=== PATIENT | male | born 1955 | race Caucasian/White ===

== ENCOUNTER → 2017-08-13 10:23 | Outpatient (CLI) | payer MEDICARE, MEDICAID, SELFPAY ==
[2017-08-13 10:49] LABS: Basophils # 0.1 K/mm3 (0-0.2); Basophils % 0.8 % (0.1-2.0); Eosinophils # 0.3 K/mm3 (0.0-0.4); Eosinophils % 2.6 % (0.1-12.0); Hematocrit 54.8 % (42.0-52.0); Hemoglobin 17.3 g/dL (14.1-18.0); Lymphocytes # 2.8 K/mm3 (0.7-4.5); Lymphocytes % 25.8 K/mm3 (10-50); Mean Corpuscular HGB Conc 31.6 g/dL (31.8-35.4); Mean Corpuscular Hemoglobin 29.5 pg (27.0-31.2); Mean Corpuscular Volume 93.4 fl (80-94); Mean Platelet Volume 7.6 fl (7.4-10.4); Monocytes # 0.7 K/mm3 (0.1-1.0); Neutrophils # 7.1 K/mm3 (1.8-7.8); Neutrophils % 64.8 % (37.0-80.0); Platelet Count 232 K/mm3 (142-424); Red Blood Count 5.87 M/mm3 (4.60-6.20); White Blood Count 10.9 K/mm3 (4.8-10.8)
[2017-08-13 12:10] LABS: Erythrocyte Sedimentation Rate 0 mm/hr (0-20)
[2017-08-13 14:14] LABS: Alanine Aminotransferase 38 U/L (12-78); Albumin Level 4.4 gm/dL (3.4-5.0); Albumin/Globulin Ratio 1.5 (1.1-1.8); Alkaline Phosphatase 139 U/L (46-116); Anion Gap 13.9 mEq/L (5-15); Bilirubin,Total 0.2 mg/dL (0.2-1.0); Blood Urea Nitrogen 19 mg/dL (7-18); Carbon Dioxide 31 mmol/L (21.0-32.0); Chloride 102 mmol/L (98-107); Chol/HDL Ratio 2.3 (1-3.5); Cholesterol 152 mg/dL (140-200); Estimated Glomerular Filt Rate 68 ml/min (>60); GFR (African American) 82 ML/MIN (>60); Glucose 124 mg/dL (74-106); HDL Cholesterol 67 mg/dL (27-67); LDL Cholesterol 61 mg/dL (0-130); Potassium 4.9 mmoL/L (3.5-5.1); Sodium 142 mmol/L (136-145); Total Protein,Serum 7.4 gm/dL (6.4-8.2); Triglycerides 120 mg/dL (30-200); Uric Acid 4.4 mg/dL (2.6-7.2); VLDL Cholesterol 24 mg/dL (0-40)
[2017-08-13 14:35] LABS: Aspartate Amino Transferase 14 U/L (15-37)
== END ==
PROVIDERS: Visit Provider Internal Medicine Adolescent Medicine
DX: M10.9 Gout, unspecified (principal); I10 Essential (primary) hypertension
CPT/HCPCS: 36415; 80053; 80061; 84550; 85025; 85651

== ENCOUNTER → 2017-08-25 14:08 | Outpatient (CLI) | payer MEDICARE, MEDICAID, SELFPAY | PROVIDERS: PCP Urology; Visit Provider Urology | DX: Z01.818 Encounter for other preprocedural examination (principal) | CPT/HCPCS: 93005 ==

== ENCOUNTER → 2017-10-07 15:01 | Outpatient (CLI) | payer MEDICARE, MEDICAID, SELFPAY ==
--- NOTE | 2017-10-07 15:05 | XR_ITS ---
EXAM: XR cervical spine 5V HISTORY: Neck pain ITS.REASON: CERVICAL NEURALGIA ORDERING PHYSICIAN: Shankar Raya MD PATIENT AGE: 62 years FINDINGS: There is multilevel cervical spondylosis with degenerative disc disease along with severe facet hypertrophic change on the left C2 to C7. Moderate facet hypertrophic changes are present on the right at C2-C3. Left-sided foraminal narrowing is noted at C2-C5 and C6-C7. There is mild cervical curvature toward the left. No subluxation. No fracture or dislocation. IMPRESSION: There is cervical spondylosis with unusual asymmetric facet arthritic changes on the left with resultant foraminal narrowing on the left and mild cervical curvature convex left
== END ==
PROVIDERS: PCP Internal Medicine Adolescent Medicine; Visit Provider Internal Medicine Adolescent Medicine
DX: M54.12 Radiculopathy, cervical region (principal); R55 Syncope and collapse
CPT/HCPCS: 72050

== ENCOUNTER → 2017-10-16 13:34 | Outpatient (CLI) | payer MEDICARE, MEDICAID, SELFPAY ==
--- NOTE | 2017-10-16 13:37 | MR_ITS ---
MR head/brain wo con Ordering Physician: Shankar Raya MD Patient Age: 62 years: Male HISTORY: ITS.REASON: SYNCOPE AND COLLAPSE, CERVICAL NEURALGIA Syncope 2 weeks ago. Collapse. Lightheadedness when standing up. Neck and Bilateral shoulder pain for years TECHNIQUE: Noncontrast Multiplanar FLAIR, T1, T2 weighted images along with axial diffusion/ADC imaging performed on 1.5 T. Siemens, MRI.. COMPARISON :CT head 02/12/2017 FINDINGS . Cranial cervical junction appears satisfactory. Sella is normal. There is diffuse cerebral atrophy advanced for age 62. Sylvian fissures are generous.. Prominent sulci throughout the cerebral hemispheres. The ventricles are generous but normal, reflecting the cerebral atrophy. Basal cisterns generous but appear clear and satisfactory. Diffusion images reveal recent ischemia or acute infarct. There is no territorial infarct. No mass lesion.. High signal foci throughout white matter of the cerebral hemispheres mainly periventricular but also subcortical. Findings most Compatible with chronic small vessel deep white matter ischemic gliotic changes with overall appearance require correlation. Scattered white matter high signal foci are most evident at frontal lobe, particularly superior to the anterior horns. It is also some mild deep white matter small vessel ischemic changes at periphery of the basal ganglia bilaterally, right greater than left, most notable at right subinsular cortex.. As it would appear to reflect combination of Small vessel ischemic gliotic changes along with some generous perivascular space spaces. Is there history of underlying hypertension?... A tiny 3 mm lacunar vs prominent perivascular space the left thalamus. Mild thinning of corpus callosum reflecting the generalized atrophy The posterior fossa and cerebellar hemisphere appears satisfactory. Norris appears satisfactory along with brain stem. IACs appears normal symmetric with the mastoid air cells are well-developed and clear. Visualized paranasal sinuses are well-developed clear. Orbits unremarkable. Deviation nasal septum convex to the right cranial nerve VII and VIII appears satisfactory IMPRESSION. ............... 1. No acute infarct or ischemia. No mass lesion 2.. Diffuse cerebral atrophy advanced for age 62 3. Chronic small vessel deep white matter ischemic gliotic changes throughout cerebral hemispheres bilateral ;-most evidence toward frontal lobe region,.
== END ==
PROVIDERS: Family Provider Internal Medicine Adolescent Medicine; PCP Internal Medicine Adolescent Medicine; Visit Provider Internal Medicine Adolescent Medicine
DX: R55 Syncope and collapse (principal); M54.12 Radiculopathy, cervical region
CPT/HCPCS: 70551

== ENCOUNTER → 2017-10-19 13:17 | Outpatient (CLI) | payer MEDICARE, MEDICAID, SELFPAY ==
--- NOTE | 2017-10-19 13:20 | MR_ITS ---
MR cervical spine wo con, MR 3-d myelogram/MRCP HISTORY: PT States RT side Neck pain, Bilateral Humeral pain, pain when turning neck from side to side. Some Headaches. Symptoms X2 months. No trauma. ITS.REASON: CERVICAL NEURALGIA ORDERING PHYSICIAN: Shankar Raya MD PATIENT AGE: 62 years Comparison: X-RAY 10/07/17 TECHNIQUE: Standard multiplanar multiecho sequences are performed without contrast. 3-D MIP and myelographic images are also rendered and reviewed FINDINGS: Motion artifact does obscure fine detail with decreased bmpwge-io-rzeeg ratio. There is normal alignment. The craniocervical junction has an unremarkable appearance. C2-C3: Unremarkable. C3-C4: Moderate to severe left-sided facet hypertrophic change with severe left-sided foraminal narrowing C4-C5: Degenerative disc disease with minimal anterolisthesis of C4 of 3 mm. Severe left-sided facet hypertrophic/arthritic changes are present with moderate to severe left-sided foraminal narrowing. C5-C6: Degenerative disc disease. Moderate left-sided facet hypertrophy. C6-C7: Degenerative disc disease with bulging disc and endplate osteophyte. The bulging disc/disc osteophyte complex is slightly eccentric toward the left with left-sided lateral recess and foraminal narrowing. There is decrease T2 signal along the anterior left aspect of the canal at C7. This however is only seen on one sequence and may be artifact in nature. Bony ridging with lateral recess narrowing is also considered. C7-T1: Mild degenerative disc disease with minimal bulging disc. IMPRESSION: Multilevel cervical spondylosis with degenerative disc disease along with bulging disc and disc artifact complex and severe facet hypertrophic change. This is described in detail above. Please see above for detailed description at each level. There is severe left-sided foraminal narrowing at C3-C4 and C4-C5 with left-sided disc osteophyte complex at C6-C7
== END ==
PROVIDERS: Family Provider Internal Medicine Adolescent Medicine; PCP Internal Medicine Adolescent Medicine; Visit Provider Internal Medicine Adolescent Medicine
DX: M54.12 Radiculopathy, cervical region (principal)
CPT/HCPCS: 72141; 76376

== ENCOUNTER → 2018-04-30 12:13 | Outpatient (CLI) | payer MEDICARE, MEDICAID, SELFPAY ==
[2018-04-30 12:41] LABS: Basophils # 0.1 K/mm3 (0-0.2); Basophils % 1.1 % (0.1-2.0); Eosinophils # 0.2 K/mm3 (0.0-0.4); Eosinophils % 3.7 % (0.1-12.0); Hematocrit 48.5 % (42.0-52.0); Hemoglobin 15.7 g/dL (14.1-18.0); Lymphocytes # 2.1 K/mm3 (0.7-4.5); Lymphocytes % 31.5 % (10-50); Mean Corpuscular HGB Conc 32.3 g/dL (31.8-35.4); Mean Corpuscular Hemoglobin 32.4 pg (27.0-31.2); Mean Corpuscular Volume 100.2 fl (80-94); Mean Platelet Volume 7.1 fl (7.4-10.4); Monocytes # 0.4 K/mm3 (0.1-1.0); Monocytes % 6.1 % (1.7-9.3); Neutrophils # 3.8 K/mm3 (1.8-7.8); Neutrophils % 57.5 % (37.0-80.0); Platelet Count 191 K/mm3 (142-424); Red Blood Count 4.84 M/mm3 (4.60-6.20); Red Cell Distribution Width 14.9 % (11.5-17.5); White Blood Count 6.6 K/mm3 (4.8-10.8)
[2018-04-30 14:10] LABS: Alanine Aminotransferase 22 U/L (12-78); Albumin/Globulin Ratio 1.4 (1.1-1.8); Alkaline Phosphatase 91 U/L (46-116); Anion Gap 11.6 mEq/L (5-15); Aspartate Amino Transferase 17 U/L (15-37); Bilirubin,Total 0.4 mg/dL (0.2-1.0); Blood Urea Nitrogen 8 mg/dL (7-18); Calcium 9.5 mg/dL (8.5-10.1); Carbon Dioxide 31 mmol/L (21.0-32.0); Chloride 103 mmol/L (98-107); Creatinine,Serum 1.31 mg/dL (0.70-1.30); Estimated Glomerular Filt Rate 55 ml/min (>60); GFR (African American) 67 ML/MIN (>60); Globulin 2.9 gm/dl (1.3-3.2); Glucose 112 mg/dL (74-106); Potassium 4.6 mmoL/L (3.5-5.1); Sodium 141 mmol/L (136-145); Total Protein,Serum 6.9 gm/dL (6.4-8.2)
== END ==
PROVIDERS: Visit Provider Otolaryngology
DX: Z01.818 Encounter for other preprocedural examination (principal)
CPT/HCPCS: 36415; 80053; 85025; 86900; 86901; 93005

== ENCOUNTER → 2018-05-07 06:34 | Day surgery (SDC) | payer MEDICARE, MEDICAID, SELFPAY ==
--- NOTE | 2018-05-07 08:44 | PC.NURSE ---
0820- princess flynn @ bedside. pt took beta omar. dr hallman notified. pt to reschedule & hold beta omar.
== END ==
PROVIDERS: PCP Internal Medicine Adolescent Medicine; Visit Provider Physician Assistant
DX: R55 Syncope and collapse (principal)

== ENCOUNTER 2018-05-15 10:26 | Inpatient (IN) ==
[2018-05-15 11:04] LABS: Basophils % 0.4 % (0.1-2.0); Eosinophils # 0.1 K/mm3 (0.0-0.4); Eosinophils % 0.5 % (0.1-12.0); Hematocrit 48.7 % (42.0-52.0); Hemoglobin 15.4 g/dL (14.1-18.0); Lymphocytes # 2.1 K/mm3 (0.7-4.5); Lymphocytes % 19.2 % (10-50); Mean Corpuscular HGB Conc 31.6 g/dL (31.8-35.4); Mean Corpuscular Hemoglobin 31.8 pg (27.0-31.2); Mean Corpuscular Volume 100.5 fl (80-94); Mean Platelet Volume 7.5 fl (7.4-10.4); Monocytes # 1.2 K/mm3 (0.1-1.0); Monocytes % 11.2 % (1.7-9.3); Neutrophils # 7.4 K/mm3 (1.8-7.8); Neutrophils % 68.8 % (37.0-80.0); Platelet Count 178 K/mm3 (142-424); Red Blood Count 4.84 M/mm3 (4.60-6.20); Red Cell Distribution Width 13.9 % (11.5-17.5); White Blood Count 10.7 K/mm3 (4.8-10.8)
--- NOTE | 2018-05-15 11:12 | Emergency Department Note ---
ED Disposition Clinical Impression: Cellulitis of hand, left, COPD exacerbation, Tobacco use disorder, Hx of malignant neoplasm of colon, Hx of prostatectomy, Renal insufficiency Disposition: Still a Patient Condition on Discharge: Fair Instructions: Animal Bites Referrals: Shankar Raya MD [Primary Care Provider] - - Critical Care Critical Care Time: No Attestation: On 05/15/18, the high probability of a clinically significant, sudden or life threatening deterioration of the following system(s) required my full and direct attention, intervention and personal management. The time I documented below is in addition to time spent performing reported procedures but includes the following listed in this critical care notation. Medical Decision Making - Medical Records Medical records reviewed: Yes: I reviewed the patient's medical records. - Steven Inquiry Pt receiving controlled substance: No Steven was queried for this patient: No Vital Signs: 05/15/18 10:34 05/15/18 11:00 05/15/18 11:30 Temperature 98.7 F Temperature Source Oral Pulse Rate Pulse Rate [Right Brachial] 72 83 90 Respiratory Rate 22 Blood Pressure [Right Arm] 121/90 125/83 Blood Pressure Mean [Right Arm] 100 97 Blood Pressure Source [Right Arm] Automatic Cuff Automatic Cuff Blood Pressure Position [Right Arm] Sitting 02 Sat by Pulse Oximetry 96 93 L Oxygen Delivery Method Room Air 05/15/18 11:32 Temperature Temperature Source Pulse Rate 93 H Pulse Rate [Right Brachial] Respiratory Rate Blood Pressure [Right Arm] Blood Pressure Mean [Right Arm] Blood Pressure Source [Right Arm] Blood Pressure Position [Right Arm] 02 Sat by Pulse Oximetry Oxygen Delivery Method - Lab Data Lab Results 05/15/18 10:45: WBC 10.7, RBC 4.84, Hgb 15.4, Hct 48.7, MCV 100.5 H, MCH 31.8 H, MCHC 31.6 L, RDW 13.9, Plt Count 178, MPV 7.5, Neut % (Auto) 68.8, Lymph % (Auto) 19.2, [place] % (Auto) 11.2 H, Eos % (Auto) 0.5, Baso % (Auto) 0.4, Neut # (Auto) 7.4, Lymph # (Auto) 2.1, [place] # (Auto) 1.2 H, Eos # (Auto) 0.1, Baso # (Auto) 0.0 05/15/18 10:45: Sodium 136, Potassium 3.6, Chloride 99, Carbon Dioxide 30, Anion Gap 10.6, BUN 5 L, Creatinine 1.38 H, Estimated Creat Clear 62, Estimated GFR 52 L, Est GFR ( Amer) 63, Glucose 115 H, Calcium 8.6, Total Bilirubin 0.5, AST 19, ALT 27, Alkaline Phosphatase 106, Total Protein 7.1, Albumin 3.7, Globulin 3.4 H, Albumin/Globulin Ratio 1.1 05/15/18 10:45: Lactate 0.9 05/15/18 10:45: Plasma/Serum Alcohol 0 Result diagrams: 05/15/18 10:45 05/15/18 10:45 Orders (Tests/Meds): ED MEDICATIONS Generic Name Dose Route Start Last Admin Trade Name Freq PRN Reason Stop Dose Admin Ampicillin Sodium/Sulbactam 100 mls @ 200 mls/hr 05/15/18 11:15 05/15/18 11:22 Sodium 3 gm/ Sodium Chloride IV 05/29/18 11:14 200 mls/hr Q6H MAJOR Administration Protocol Discontinued Medications Generic Name Dose Route Start Last Admin Trade Name Freq PRN Reason Stop Dose Admin Albuterol/Ipratropium 3 ml 05/15/18 11:08 05/15/18 11:31 Duoneb 3ml Neb IH 05/15/18 11:09 3 ml ONCE ONE Administration Sodium Chloride 1,000 mls @ 999 mls/hr 05/15/18 10:45 05/15/18 10:46 Sod Chlor 0.9% 1000ml Bag IV 05/15/18 11:45 999 mls/hr .Q1H1M MAJOR Administration Ketorolac Tromethamine 30 mg 05/15/18 10:41 05/15/18 10:46 Toradol 30mg/Ml Vial IV 05/15/18 10:42 30 mg ONCE ONE Administration Tetanus/Diphtheria Toxoids 0.5 ml 05/15/18 11:23 05/15/18 11:23 Tenivac 0.5ml Syringe IM 05/15/18 11:24 0.5 ml .ONCE ONE Administration ORDERS Category Date Time Status XR chest 2V Stat Exams 05/15/18 10:39 Taken XR hand LT min 3V Stat Exams 05/15/18 10:39 Taken Blood Culture Stat Micro 05/15/18 10:45 Received - Radiology Data #1 Image(s): Chest, Hand Image Reviewed: Yes I reviewed the patient's radiology image Preliminary Findings: Abnormal Chest x-ray: is positive COPD no acute findings. Left hand x-ray: soft tissue swelling no radiopoaque foreign body, no fracture. Medical Decision Narrative: The patient remained hemodynamically stable pain his labs and discussed with him he is agreeable for admission due to rapid progression of his infection. I discussed with Dr. Smalls who agreed to admit him for Dr. Raya due to his lymphangitis. Skin/Abscess/FB HPI - General Chief complaint: Animal Bite Stated complaint: [id number] Dog bite left hand Time Seen by Provider: 05/15/18 10:35 Mode of Arrival: Ambulatory Limitations: No Limitations Description of Symptoms (Recalled from ER Triage Doc. by RN): left hand swollen and red from dog bite last night. noted patient to have difficulty closing hand - History of Present Illness HPI narrative: 62 years old white male smoker with history of COPD, colon cancer and prostate cancer. Yesterday at 5 PM the patient was cleaning his bed from the dog food that is when his dog bit him. The bite involved with the left index and middle finger with pain that is rated 10/10 overnight redness swelling and extension of the pain extended to his left arm. It hurts to keep his hand down and he has to keep it elevated above his chest, he denies having pain or swelling in the left axilla. The pain continues. Patient denies having fever chills chest pain palpitations nausea vomiting or diarrhea. He did not use his inhalers this mo rning. complaint: other (Multiple punctures wound involving the left index and middle finger dorsally.) Onset (ago): hour(s) (18 hours.) Tetanus up to date: no Location: LUE Severity: mild Severity scale (1-10): 10 Quality: aching, dull Consistency: constant Relieving factors: rest, other (And elevation above his chest. ) Exacerbating factors: other (Left hand dependency. ) Context: none Associated symptoms: denies other symptoms Treatments prior to arrival: none - Related Data Home Medications Medication Instructions Recorded Confirmed albuterol sulfate 2.5 mg/3 mL 1.25 mg INHALATION ONCE 03/27/18 12/07/18 (0.083 %) solution for nebulization albuterol sulfate HFA 90 1 puff INHALATION Q6H 08/25/17 05/07/18 mcg/actuation aerosol inhaler allopurinol 100 mg tablet 100 mg PO ONCE 08/25/17 05/07/18 colchicine 0.6 mg capsule 0.6 mg PO ONCE 08/25/17 05/07/18 indomethacin 50 mg capsule 50 mg PO BID 08/25/17 05/07/18 ketotifen 0.025 % (0.035 %) eye 1 drp OPHTHALMIC Q8H 08/25/17 05/07/18 drops metoprolol succinate ER 50 mg 50 mg PO ONCE 08/25/17 05/07/18 tablet,extended release 24 hr potassium chloride ER 20 mEq 20 meq PO BID 08/25/17 05/07/18 tablet,extended release(part/cryst) promethazine 25 mg tablet 25 mg PO NEEDED PRN 08/25/17 05/07/18 quetiapine 100 mg tablet 100 mg PO BID 08/25/17 05/07/18 ranitidine 300 mg capsule 300 mg PO QHS 08/25/17 05/07/18 simvastatin 40 mg tablet 40 mg PO QAM 08/25/17 05/07/18 Allergies Allergy/AdvReac Type Severity Reaction Status Date / Time No Known Allergies Allergy Verified 04/30/18 11:22 [facility] History - Hepatitis A Screen Drug use history?: No High risk sexual behaviors?: No History of sexually transmitted infection?: No Currently employed?: No Childcare worker?: No Do you have indoor plumbing?: Yes Do you have electricity?: Yes Attestation statement:: This patient has been screened for Hepatitis A risk factors. Medical History: Reports:: Asthma, Chronic Obstructive Pulmonary Disease (COPD), Hypertension Other Medical History: Reports: Hypothyroidism. Denies: Blood Transfusion Reac tion Laterality Cases: Bilateral: Other Other Surgeries: Yes: Colonoscopy, EGD Comment: prostate - Social History Smoking Status: Current every day smoker Tobacco Type: cigarettes # Packs/Day (cigarettes): 2 Alcohol Intake: never Alcohol Intake Frequency:: other Substance Use Type: denies use - Psychiatric History Expresses thoughts of harming self/others: None Suicide Plan Description: No Plan Family Hx:: Unable to obtain, No significant family history ROS Obtained: Yes All systems reviewed & no additional complaints Physical Exam - General General appearance: alert, in no apparent distress - Head Head exam: atraumatic, normocephalic, normal inspection - Eye Eye exam: Present: normal appearance, PERRL, EOMI. Absent: scleral icterus, nystagmus - ENT ENT exam: Present: normal exam, normal oropharynx, mucous membranes moist, TM's normal bilaterally, normal external ear exam - Neck Neck exam: Present: normal inspection, full ROM, trachea midline. Absent: tenderness, meningismus, lymphadenopathy - Chest Chest inspection: Present: normal inspection, symmetric chest wall rise. Absent: tenderness - Respiratory Respiratory exam: Present: normal lung sounds bilaterally, wheezes, other (Mild bilateral expiratory wheeze dorsally. ). Absent: respiratory distress - Cardiovascular Cardiovascular exam: Present: regular rate, normal rhythm, normal heart sounds. Absent: JVD - Abdominal Exam Abdominal exam: Present: soft, normal bowel sounds. Absent: distention, tenderness, guarding, rebound, rigidity - Extremities Exam Extremities exam: Present: full ROM, tenderness, normal capillary refill, other. Absent: normal inspection, calf tenderness - Back Exam Back exam: Present: normal inspection. Absent: tenderness, CVA tenderness (R), CVA tenderness (L), vertebral tenderness - Neurological Exam Neurological exam: Present: alert, oriented X3, CN II-XII intact, normal gait, motor sensory deficit, reflexes normal - Psychiatric Psychiatric exam: Present: normal affect, normal mood - Skin Skin exam: Present: warm, dry, other (Left hand tender edematous red dorsally extending to the wrist area with red streaks all the way up to the left arm medially. Negative left axillary lymph node) - Lymphatic Lymphatic Findings: no adenopathy
[2018-05-15 11:22] LABS: Albumin Level 3.7 gm/dL (3.4-5.0); Anion Gap 10.6 mEq/L (5-15); Bilirubin,Total 0.5 mg/dL (0.2-1.0); Calcium 8.6 mg/dL (8.5-10.1); Potassium 3.6 mmoL/L (3.5-5.1); Total Protein,Serum 7.1 gm/dL (6.4-8.2)
[2018-05-15 11:23] LABS: Albumin/Globulin Ratio 1.1 (1.1-1.8); Globulin 3.4 gm/dl (1.3-3.2)
[2018-05-16 06:22] LABS: Basophils % 0.5 % (0.1-2.0); Eosinophils # 0.1 K/mm3 (0.0-0.4); Eosinophils % 2.5 % (0.1-12.0); Hematocrit 40.2 % (42.0-52.0); Lymphocytes # 1.4 K/mm3 (0.7-4.5); Lymphocytes % 26.6 % (10-50); Mean Corpuscular HGB Conc 33.1 g/dL (31.8-35.4); Mean Corpuscular Hemoglobin 32.9 pg (27.0-31.2); Mean Corpuscular Volume 99.3 fl (80-94); Mean Platelet Volume 7.8 fl (7.4-10.4); Monocytes # 0.6 K/mm3 (0.1-1.0); Monocytes % 12.1 % (1.7-9.3); Neutrophils % 58.3 % (37.0-80.0); Platelet Count 143 K/mm3 (142-424); Red Blood Count 4.05 M/mm3 (4.60-6.20); Red Cell Distribution Width 13.7 % (11.5-17.5); White Blood Count 5.1 K/mm3 (4.8-10.8)
[2018-05-16 06:24] LABS: Hemoglobin 13.3 g/dL (14.1-18.0)
[2018-05-16 06:32] LABS: Anion Gap 9.7 mEq/L (5-15); Potassium 3.7 mmoL/L (3.5-5.1)
[2018-05-16 06:38] LABS: Calcium 7.7 mg/dL (8.5-10.1)
--- NOTE | 2018-05-16 08:29 | History & Physical Report ---
*Admission Date: 05/15/18 *Chief complaint: Dog bite *History of present illness: Mr. Rivero is a 62-year-old male with history of COPD, coronary artery disease, who presented to the ER after being bit by his dog on Thursday. He states he was cleaning out the dog's bed and lifted a cover off of him startlingly the dachshund who bit him at the time on his left hand. He did not think much of it initially, however Thursday noted significant redness and swelling with streaking up to his left axilla. Pain was intense, however denies fever, chills, nausea vomiting, numbness in hand. Does have limited movement due to swelling and edema. Trying to keep hand elevated which helps the pain. Admitted to medicine service for IV antibiotics and further management. [facility] History I have reviewed the patient's past medical history: Yes Medical History: Reports:: Asthma, Chronic Obstructive Pulmonary Disease (COPD), Hyperlipidemia, Hypertension Denies:: Cancer, Diabetes Mellitus Type 1, Diabetes Mellitus Type 2, MRSA Other Medical History: Reports: Hypothyroidism. Denies: Blood Transfusion Reaction Laterality Cases: Bilateral: Other Other Surgeries: Yes: Colonoscopy, EGD Amputation: No Fractures: No - *Social History Educational Level: Attended High School Smoking Status: Current every day smoker Tobacco Type: cigarettes # Packs/Day (cigarettes): 2 Alcohol Intake: current Alcohol Intake Frequency:: a few times a month Substance Use Type: denies use Occupational Status: disabled Housing: house Household Members: none - Psychiatric History Expresses thoughts of harming self/others: None Suicide Plan Description: No Plan *Family Hx:: Unable to obtain, No significant family history Review of Systems - Review of Systems Review of systems:: pertinent systems reviewed and negative unless documented below Meds Home Medications Medication Instructions Recorded Confirmed Type albuterol sulfate 2.5 mg/3 mL 1.25 mg INHALATION ONCE 08/25/17 05/07/18 History (0.083 %) solution for nebulization albuterol sulfate HFA 90 1 puff INHALATION Q6H 08/25/17 05/07/18 History mcg/actuation aerosol inhaler allopurinol 100 mg tablet 100 mg PO ONCE 08/25/17 05/07/18 History colchicine 0.6 mg capsule 0.6 mg PO ONCE 08/25/17 05/07/18 History indomethacin 50 mg capsule 50 mg PO BID 08/25/17 05/07/18 History ketotifen 0.025 % (0.035 %) eye 1 drp OPHTHALMIC Q8H 08/25/17 05/07/18 History drops metoprolol succinate ER 50 mg 50 mg PO ONCE 08/25/17 05/07/18 History tablet,extended release 24 hr potassium chloride ER 20 mEq 20 meq PO BID 08/25/17 05/07/18 History tablet,extended release(part/cryst) promethazine 25 mg tablet 25 mg PO NEEDED PRN 08/25/17 05/07/18 History quetiapine 100 mg tablet 100 mg PO BID 08/25/17 05/07/18 History ranitidine 300 mg capsule 300 mg PO QHS 08/25/17 05/07/18 History simvastatin 40 mg tablet 40 mg PO QAM 08/25/17 05/07/18 History Allergies Allergy/AdvReac Type Severity Reaction Status Date / Time No Known Allergies Allergy Verified 04/30/18 11:22 Exam Vital signs and Labs for Last 24 Hours: Temp Pulse Resp BP Pulse Ox 98.2 F 108 H 18 160/95 H 94 L 05/16/18 08:00 05/16/18 08:00 05/16/18 08:00 05/16/18 08:00 05/16/18 08:00 Laboratory Results - last 24 hr 05/15/18 10:45: WBC 10.7, RBC 4.84, Hgb 15.4, Hct 48.7, MCV 100.5 H, MCH 31.8 H, MCHC 31.6 L, RDW 13.9, Plt Count 178, MPV 7.5, Neut % (Auto) 68.8, Lymph % (Auto) 19.2, [place] % (Auto) 11.2 H, Eos % (Auto) 0.5, Baso % (Auto) 0.4, Neut # (Auto) 7.4, Lymph # (Auto) 2.1, [place] # (Auto) 1.2 H, Eos # (Auto) 0.1, Baso # (Auto) 0.0 05/15/18 10:45: Sodium 136, Potassium 3.6, Chloride 99, Carbon Dioxide 30, Anion Gap 10.6, BUN 5 L, Creatinine 1.38 H, Estimated Creat Clear 62, Estimated GFR 52 L, Est GFR ( Amer) 63, Glucose 115 H, Calcium 8.6, Total Bilirubin 0.5, AST 19, ALT 27, Alkaline Phosphatase 106, Total Protein 7.1, Albumin 3.7, Globulin 3.4 H, Albumin/Globulin Ratio 1.1 05/15/18 10:45: Lactate 0.9 05/15/18 10:45: Plasma/Serum Alcohol 0 05/16/18 06:04: WBC 5.1 D, RBC 4.05 L, Hgb 13.3 L D, Hct 40.2 L, MCV 99.3 H, MCH 32.9 H, MCHC 33.1, RDW 13.7, Plt Count 143, MPV 7.8, Neut % (Auto) 58.3, Lymph % (Auto) 26.6, [place] % (Auto) 12.1 H, Eos % (Auto) 2.5, Baso % (Auto) 0.5, Neut # (Auto) 3.0, Lymph # (Auto) 1.4, [place] # (Auto) 0.6, Eos # (Auto) 0.1, Baso # (Auto) 0.0 05/16/18 06:04: Sodium 138, Potassium 3.7, Chloride 105, Carbon Dioxide 27, Anion Gap 9.7, BUN 7 D, Creatinine 1.19, Estimated Creat Clear 71, Estimated GFR 62, Est GFR ( Amer) 75, Glucose 98, Calcium 7.7 L D I & O for Last 24 hours: Intake & Output 05/13/18 05/14/18 05/15/18 05/16/18 23:59 23:59 23:59 23:59 Intake Total 2029 1479 / 1479 Balance 2029 1479 / 1479 Weight 77.564 kg - Constitutional no acute distress - *Routine HEENT Exam Head: Present: normocephalic, atraumatic Eye: Present: EOMI, PERRL ENT: Present: mucous membranes moist. Absent: dentition normal - *Routine Neck Exam Present: supple. Absent: lymphadenopathy - *Routine Respiratory Exam Present: prolonged expiratory phase, wheezes. Absent: rales - *Routine Cardiovascular Exam Present: RRR, Normal S1 - *Routine Abdominal Exam Present: soft - *Routine Rectal Exam Patient deferred: visual exam - *Routine Exam Patient deferred: penile exam - *Routine Extremities Exam Present: edema. Absent: cyanosis, clubbing Comments: Left hand with marked edema and erythema, swelling to the point there are no visual lines on the backs of fingers. Erythema tracks to just proximal of wrist. Smith from previous leading edge of streaking show erythema has receded. Tender to palpation. Cannot make full fist, bite wounds on dorsum of index and middle finger as well as distal metacarpals, no purulent drainage - *Routine Skin Exam Present: intact. Absent: cyanosis - *Routine Neurological Exam Present: alert, oriented X3. Absent: altered mental status Assessment and Plan (1) COPD (chronic obstructive pulmonary disease) Current visit: Yes Status: Chronic Qualifiers: COPD type: unspecified COPD Qualified Code(s): J44.9 - Chronic obstructive pulmonary disease, unspecified Category: Medical Code(s): J44.9 - Chronic obstructive pulmonary disease, unspecified Currently on duo nebs, exams significant for bilateral diffuse wheeze -Initiate maintenance inhaler, given sample from clinic (2) HTN (hypertension) Current visit: Yes Status: Chronic Qualifiers: Hypertension type: essential hypertension Qualified Code(s): I10 - Essential (primary) hypertension Category: Medical Code(s): I10 - Essential (primary) hypertension Continue home medications, holding metoprolol starting today due to patient having tilt table test on Thursday morning and need for 48 hours without beta- blockade (3) Cellulitis of hand, left Current visit: Yes Status: Acute Category: Medical Code(s): L03.114 - Cellulitis of left upper limb Continue Unasyn. Improvement since admission however still having significant pain and edema, will continue IV antibiotics for another 24 hours before transit ioning to oral therapy -Pain control: DC morphine, initiate oxycodone (4) Renal insufficiency Current visit: Yes Status: Chronic Category: Medical Code(s): N28.9 - Disorder of kidney and ureter, unspecified (5) Tobacco use disorder Current visit: Yes Status: Chronic Category: Medical Code(s): F17.200 - Nicotine dependence, unspecified, uncomplicated
--- NOTE | 2018-05-16 15:59 | Pharmacy Consult Notes ---
[facility] Pharmacy VTE Monitoring - Patient Demographics Admission date: 05/15/18 Report Date: 05/16/18 Time: 15:59 Allergies/Adverse Reactions: Patient Allergies No Known Allergies Allergy (Verified 04/30/18 11:22) Height: 1.73 m Weight: 77.564 kg Patient Problems: Current Active Problems Cellulitis of hand, left (Acute) COPD exacerbation (Acute) Tobacco use disorder (Chronic) Hx of malignant neoplasm of colon (Acute) Hx of prostatectomy (Acute) Renal insufficiency (Chronic) COPD (chronic obstructive pulmonary disease) (Chronic) HTN (hypertension) (Chronic) - VTE Risk Labs: VTE Related Lab Results Hgb 13.3 g/dL (14.1-18.0) L D 05/16/18 06:04 Hct 40.2 % (42.0-52.0) L 05/16/18 06:04 Plt Count 143 K/mm3 (142-424) 05/16/18 06:04 BUN 7 mg/dL (7-18) D 05/16/18 06:04 Creatinine 1.19 mg/dL (0.70-1.30) 05/16/18 06:04 Estimated Creat Clear 71 mL/min (50-200) 05/16/18 06:04 VTE Score: 2 VTE Risk Level: Low Risk - Prophylaxis VTE Prophylaxis Ordered?: Yes Types of VTE Prophylaxis: TEDS Knee High Location of Applied Device: Bilateral Lower Extremeties
--- NOTE | 2018-05-17 07:38 | Progress Note ---
Internal Medicine - PN: Subj *Date: 05/17/18 *Time: 07:35 Interval history: Overall patient feels better vis--vis his hand, swelling and infection issues but has some shortness of air through the night and nurses noted that his room air pulse oximetry reading was in the low 80% range. Also found to be wheezing. Placed on oxygen this morning and feels somewhat better. Exam Vital signs and Labs for Last 24 Hours: Temp Pulse Resp BP Pulse Ox 99.0 F 118 H 20 158/98 H 94 L 05/17/18 04:00 05/17/18 05:50 05/17/18 04:00 05/17/18 04:00 05/17/18 06:46 I & O for Last 24 hours: Intake & Output 05/14/18 05/15/18 05/16/18 05/17/18 11:59 11:59 11:59 11:59 Intake Total 3509 / 3509 2362 / 2362 Output Total 240 / 240 Balance 3509 / 3509 2122 / 2122 Weight 175 lb 171 lb 171 lb Narrative: Patient is alert. Somewhat sullen as is his baseline personality. Does admit that his hand is better but that he is coughing. Lungs have expiratory wheezing but fairly symmetric and good air entry in all lung faith. Heart rate regular. Abdomen soft and nontender. Assessment and Plan (1) COPD (chronic obstructive pulmonary disease) Current visit: Yes Status: Chronic Qualifiers: COPD type: COPD with acute exacerbation Qualified Code(s): J44.1 - Chronic obstructive pulmonary disease with (acute) exacerbation Category: Medical Code(s): J44.9 - Chronic obstructive pulmonary disease, unspecified Seems to be in a mild exacerbation of his significant COPD. 1 dose of IV steroids. Continue anabiotic's. Lasix administration to help his wheezing given his recent fluid administration. IV fluids will be discontinued. If he improves through the afternoon he may be discharged home. He is a candidate for home O2 given his severe COPD. (2) HTN (hypertension) Current visit: Yes Status: Chronic Qualifiers: Hypertension type: essential hypertension Qualified Code(s): I10 - Essential (primary) hypertension Category: Medical Code(s): I10 - Essential (primary) hypertension (3) Cellulitis of hand, left Current visit: Yes Status: Acute Category: Medical Code(s): L03.114 - Cellulitis of left upper limb Overall improving. Transition to oral antibiotics if discharged (4) Renal insufficiency Current visit: Yes Status: Chronic Category: Medical Code(s): N28.9 - Disorder of kidney and ureter, unspecified Overall improving/resolved (5) Tobacco use disorder Current visit: Yes Status: Chronic Category: Medical Code(s): F17.200 - Nicotine dependence, unspecified, uncomplicated Complicates all aspects of his care (6) Alcoholism Current visit: Yes Status: Acute Category: Medical Code(s): F10.20 - Alcohol dependence, uncomplicated Long history. Questionably active. Complicates all aspects of his care
--- NOTE | 2018-05-17 08:29 | Discharge Summary ---
General - General Admission date:: 05/16/18 Discharge date: 05/17/18 HPI HPI: Mr. Rivero is a 62-year-old male with history of COPD, coronary artery disease, who presented to the ER after being bit by his dog on Thursday. He states he was cleaning out the dog's bed and lifted a cover off of him startlingly the dachshund who bit him at the time on his left hand. He did not think much of it initially, however Thursday noted significant redness and swelling with streaking up to his left axilla. Pain was intense, however denies fever, chills, nausea vomiting, numbness in hand. Does have limited movement due to swelling and edema. Trying to keep hand elevated which helps the pain. Admitted to medicine service for IV antibiotics and further management. Hospital Course Hospital Course: Patient was admitted, placed on IV Unasyn, tolerated this well and his pain improved. Blood cultures were negative/pending at the time of discharge. Patient did have an episode of COPD exacerbation with wheezing and coughing, required oxygen and in fact had room air saturations less than 89% this morning- the day of discharge and qualifies for home oxygen therapy. This morning hand had improved, please see my exam notes from this morning he will be discharged home on p.o. Augmentin, steroids for his COPD exacerbation and his oxygen therapy. Objective Vital signs: Temp Pulse Resp BP Pulse Ox 99.4 F 93 H 20 154/92 H 94 L 05/17/18 08:00 05/17/18 08:00 05/17/18 08:00 05/17/18 08:00 05/17/18 08:00 Narrative: Patient has reasonably improved air movement after steroids. Still with expiratory wheezing but no crackles or rhonchi. Heart rate regular. No edema. Left hand with redness and [place] consistent with the dog bites but vastly improved with redness only in the MCP area and set of tracing up into the wrist area. Good capillary refill in the distal extremities. DS: Diagnosis - Discharge Diagnosis (1) COPD (chronic obstructive pulmonary disease) Status: Chronic Problem details: Qualifies for home oxygen. This will be set up. (2) HTN (hypertension) Status: Chronic (3) Cellulitis of hand, left Status: Acute (4) Renal insufficiency Status: Resolved Problem details: Creatinine returned to normal (5) Tobacco use disorder Status: Chronic (6) Alcoholism Status: Acute Discharge Plan - Patient Discharge Instructions ACTIVITY: Continue current activity DIET: continue same diet - Follow up Plan Follow up with: Alphonso Auguste MD [Staff Physician] - 05/21/18 Disposition: Home, Self-Skilled Nursing Medications: Home Medications Medication Instructions Recorded Confirmed Type Albuterol Sulfate [Albuterol HFA 1 - 2 puffs IH Q6HP PRN 05/16/18 05/16/18 History Inhaler] Allopurinol [Allopurinol 100mg 100 mg PO BID 05/16/18 05/16/18 History tablet] Aspirin [Aspirin 325mg Tab] 325 mg PO DAILY 05/16/18 05/16/18 History Buspirone HCl [Buspar 10mg tablet] 10 mg PO DAILY 05/16/18 05/16/18 History Colchicine [Colcrys 0.6mg tablet] 0.6 mg PO DAILY 05/16/18 05/16/18 History Duloxetine HCl [Cymbalta] 30 mg PO DAILY 05/16/18 05/16/18 History Metoprolol Succinate 50 mg PO DAILY 05/16/18 05/16/18 History Pantoprazole Sodium [Protonix 40mg 40 mg PO HS 05/16/18 05/16/18 History tablet] Potassium Chloride 20 meq PO DAILY 05/16/18 05/16/18 History Quetiapine Fumarate 100 mg PO DAILY 05/16/18 05/16/18 History Simvastatin 40 mg PO HS 05/16/18 05/16/18 History clonazePAM [Clonazepam] 0.5 mg PO BID 05/16/18 05/16/18 History raNITIdine HCl [Ranitidine HCl] 300 mg PO DAILY 05/16/18 05/16/18 History Prescriptions/Medication Reconciliation: New Amoxicillin/Potassium Clav [Augmentin 875-125 Tablet] 1 tab PO Q12H 10 Days #20 tab predniSONE [Deltasone 20mg tablet] 20 mg PO BID 7 Days #14 tab Mupirocin [Bactroban 2% Ointment 22gm tube] 1 applicatio TP TID #1 tube predniSONE [Deltasone 20mg tablet] 20 mg PO BID 7 Days #14 tab Continue Simvastatin 40 mg PO HS raNITIdine HCl [Ranitidine HCl] 300 mg PO DAILY Potassium Chloride 20 meq PO DAILY Metoprolol Succinate 50 mg PO DAILY Colchicine [Colcrys 0.6mg tablet] 0.6 mg PO DAILY Pantoprazole Sodium [Protonix 40mg tablet] 40 mg PO HS Allopurinol [Allopurinol 100mg tablet] 100 mg PO BID clonazePAM [Clonazepam] 0.5 mg PO BID Albuterol Sulfate [Albuterol HFA Inhaler] 1 - 2 puffs IH Q6HP PRN PRN Reason: SOA/WHEEZING Quetiapine Fumarate 100 mg PO DAILY Duloxetine HCl [Cymbalta] 30 mg PO DAILY Buspirone HCl [Buspar 10mg tablet] 10 mg PO DAILY Aspirin [Aspirin 325mg Tab] 325 mg PO DAILY
== END 2018-05-17 12:20 | disposition home or self-care (01) ==
LOC: 2ND 10:26 → ER 10:26 → 2ND 12:41
PROVIDERS: ADMIT Family Medicine; ATTEND Internal Medicine Adolescent Medicine
CPT/HCPCS: 36415; 71020; 71046; 73130; 80048; 80053; 83605; 85025; 87040; 90714; 94640; 96365; 96366; 96375; 99284; G0378

== ENCOUNTER → 2018-05-18 09:02 | Day surgery (SDC) | payer SELFPAY ==
--- NOTE | 2018-05-19 13:23 | HMH.TILT ---
Findings:: PROCEDURE: UPRIGHT TILT TABLE TEST DATE OF PREOCEDURE: 05/18/2018 REQUESTING PHYSICIAN: Shankar Raya MD INDICATION: Recurrent syncope PRESTEST VITAL SIGNS: BP 159/101, HR 107 and regular, O2 sats 96%. PROCEDURE SUMMARY: Patient was tilted into the upright position at 85 degrees, per protocol, for a total of 51 minutes. He had no syncope or near syncope and only complaint was being tired of standing. His heart rate remained steady with minimal variation. His rhythm was sinus and sinus tachycardia throughout. His blood pressure did drop to a low of 119/90 approximately 9 minutes after being placed upright. However, he had no symptoms associated with this drop in blood pressure. COMPLICATIONS: None. CONCLUSION: Unremarkable upright TTT. However, the patient did have a total drop in systolic blood pressure of 40 mmHg after approximately 9 minutes in the upright position, but remained asymptomatic. It should also be noted that he took Metoprolol Succinate 50 mg, approximately 24 hours prior to the test. Forrest Menendez PA-C
== END ==
PROVIDERS: PCP Internal Medicine Adolescent Medicine; Visit Provider Physician Assistant
DX: R55 Syncope and collapse (principal)

== ENCOUNTER 2018-12-30 17:37 | Inpatient (IN) ==
[2018-12-30 18:24] LABS: Albumin Level 3.7 gm/dL (3.4-5.0); Anion Gap 12.4 mEq/L (5-15); Bilirubin,Total 0.5 mg/dL (0.2-1.0); Calcium 8.9 mg/dL (8.5-10.1); Globulin 3.6 gm/dl (1.3-3.2); Total Protein,Serum 7.3 gm/dL (6.4-8.2)
[2018-12-30 18:31] LABS: Basophils # 0.1 K/mm3 (0-0.2); Eosinophils # 0.3 K/mm3 (0.0-0.4); Eosinophils % 3.2 % (0.1-12.0); Lymphocytes # 3.1 K/mm3 (0.7-4.5); Lymphocytes % 35.6 % (10-50); Mean Corpuscular HGB Conc 31.5 g/dL (31.8-35.4); Mean Corpuscular Volume 100.9 fl (80-94); Mean Platelet Volume 7.7 fl (7.4-10.4); Monocytes # 0.5 K/mm3 (0.1-1.0); Monocytes % 5.8 % (1.7-9.3); Neutrophils # 4.7 K/mm3 (1.8-7.8); Neutrophils % 54.3 % (37.0-80.0); Platelet Count 207 K/mm3 (142-424); Red Blood Count 5.85 M/mm3 (4.60-6.20); Red Cell Distribution Width 14.1 % (11.5-17.5); White Blood Count 8.6 K/mm3 (4.8-10.8)
[2018-12-30 18:46] LABS: Hemoglobin 18.6 g/dL (14.1-18.0)
[2018-12-30 18:49] LABS: Microscopic, Urine URINE MICROSCOPIC (MICROSCOPIC)
[2018-12-30 18:53] LABS: Appearance,Urine CLEAR (Clear); Bilirubin,Urine Negative (Negative); Blood, Urine Negative (Negative); Color,Urine YELLOW (Yellow); Glucose,Urine (UA) Negative (Negative); Ketones,Urine Negative (Negative); Leukocyte Esterase,Urine Negative (Negative); PH,Urine 6.5 (5.0-8.5); Protein,Urine TRACE (Negative); Urobilinogen,Urine 0.2 EU/dl (0.2)
[2018-12-30 19:47] LABS: Bacteria,Urine Trace /lpf; Squamous Epithelial Cell,Urine Occasional #/hpf (0-5); WBC,Urine Occasional #/hpf (0-3)
--- NOTE | 2018-12-30 20:30 | Emergency Department Note ---
ED Disposition Clinical Impression: Alcoholic pancreatitis Qualifiers: Chronicity: acute Acute pancreatitis complication: unspecified Qualified Code(s): K85.20 - Alcohol induced acute pancreatitis without necrosis or infection Disposition: Admitted as Observation Condition on Discharge: Fair - Critical Care Critical Care Time: No Attestation: On 12/30/18, the high probability of a clinically significant, sudden or life threatening deterioration of the following system(s) required my full and direct attention, intervention and personal management. The time I documented below is in addition to time spent performing reported procedures but includes the following listed in this critical care notation. Medical Decision Making - Steven Inquiry Pt receiving controlled substance: Yes Steven was queried for this patient: No Reason not queried -: Emergent pt cond-no time Risks and benefits of using a controlled substance: were not discussed with pt by me Vital Signs: 12/30/18 17:43 12/30/18 18:57 12/30/18 20:30 Temperature 98.9 F 98 F Temperature Source Oral Oral Pulse Rate [Right Radial] 99 H 89 86 Respiratory Rate 18 22 18 Blood Pressure [Right Arm] 149/111 H 150/99 H 116/74 Blood Pressure Mean [Right Arm] 123 116 88 Blood Pressure Source [Right Arm] Automatic Cuff Automatic Cuff Automatic Cuff Blood Pressure Position [Right Arm] Sitting Supine Supine 02 Sat by Pulse Oximetry 98 93 L 92 L Oxygen Delivery Method Room Air Room Air Room Air - Lab Data Lab Results 12/30/18 18:00: WBC 8.6, RBC 5.85, Hgb 18.6 H*, Hct 59.0 H, MCV 100.9 H, MCH 31.8 H, MCHC 31.5 L, RDW 14.1, Plt Count 207, MPV 7.7, Neut % (Auto) 54.3, Lymph % (Auto) 35.6, [place] % (Auto) 5.8, Eos % (Auto) 3.2, Baso % (Auto) 1.0, Neut # (Auto) 4.7, Lymph # (Auto) 3.1, [place] # (Auto) 0.5, Eos # (Auto) 0.3, Baso # (Auto) 0.1 12/30/18 18:00: Sodium 140, Potassium 4.4, Chloride 100, Carbon Dioxide 32, Anion Gap 12.4, BUN 4 L, Creatinine 1.14, Estimated Creat Clear 70, Estimated GFR 65, Est GFR ( Amer) 79, Glucose 127 H, Calcium 8.9, Total Bilirubin 0.5, AST 52 H, ALT 58, Alkaline Phosphatase 173 H, Total Protein 7.3, Albumin 3.7, Globulin 3.6 H, Albumin/Globulin Ratio 1.0 L, Amylase 101, Lipase 817 H 12/30/18 18:00: Troponin I < 0.02 12/30/18 18:45: Urine Color Yellow, Urine Appearance Clear, Urine pH 6.5, Ur Specific [place] 1.020, Urine Protein Trace, Urine Glucose (UA) Negative, Urine Ketones Negative, Urine Blood Negative, Urine Nitrate Negative, Urine Bilirubin Negative, Urine Urobilinogen 0.2, Ur Leukocyte Esterase Negative, Urine WBC Occasional, Ur Squamous Epith Cells Occasional, Urine Bacteria Trace Result diagrams: 12/30/18 18:00 12/30/18 18:00 Orders (Tests/Meds): ED MEDICATIONS Generic Name Dose Route Start Last Admin Trade Name Freq PRN Reason Stop Dose Admin Sodium Chloride 1,000 mls @ 150 mls/hr 12/30/18 20:45 Sod Chlor 0.9% 1000ml Bag IV 01/29/19 20:44 .[id number] MAJOR Discontinued Medications Generic Name Dose Route Start Last Admin Trade Name Freq PRN Reason Stop Dose Admin Hydromorphone HCl 1 mg 12/30/18 18:32 12/30/18 18:40 Dilaudid 2mg/Ml Syringe IV 12/30/18 18:33 1 mg ONCE ONE Administration Sodium Chloride 1,000 mls @ 999 mls/hr 12/30/18 18:32 12/30/18 18:39 Sod Chlor 0.9% 1000ml Bag IV 12/30/18 19:32 999 mls/hr .Q1H1M ONE Administration Ondansetron HCl 4 mg 12/30/18 18:32 12/30/18 18:40 Zofran 4mg/2ml Vial IV 12/30/18 18:33 4 mg ONCE ONE Administration ORDERS Category Date Time Status CT abdomen pelvis wo con Stat Cat Scan 12/30/18 17:57 Taken - CT Data CT Scan: Abdomen, Pelvis Time Received: 20:[address] Reviewed: Yes: I have viewed the radiologist's interpretation Findings Narrative: CT scan interpreted by [facility] radiologist. Faxed report received and reviewed: Diffuse abnormality of the pancreatic body, head, and uncinate process. Multiple calcifications. 2.7 and 3.9 cm rounded ill-defined hypodensities. Adjacent stranding. Pancreatic findings may be secondary to acute on chronic pancreatitis. Ovoid hypodensities may be postinflammatory or infectious fluid collections. Underlying malignancy cannot be excluded. MRI may be warranted for further evaluation. - ECG Data Tracing #1 EKG interpreted by Sarmad Escalante MD: Rhythm: sinus Rate: 85 Hankins: normal Ectopy: none Conduction: normal ST Segment Changes: none T Wave Changes: none Q Waves: none Poor R wave progression No evidence of acute injury or infarction - Physician Consults Physician Consulted: Slim Raya Time: 21:24 Reason -: Admission Comment/Response: Agrees to admit the patient to the hospital. We discussed the patient's clinical information, including history, exam, laboratory and radiology results and ED course. Per hospital procedure, I will write temporary bridge inpatient orders on the patient. Specific orders requested by the admitting physician: Clear liquids, IV fluids, pain control Medical Decision Narrative: Records reviewed. Admitted in January 2017 for pancreatitis and alcoholism. Had a seizure while in the hospital. Patient uncertain of his home meds. Has prednisone listed, but is unable to tell me whether he is still on that medication. General Adult HPI - General Chief complaint: Abdominal Pain Stated complaint: abd pain Time Seen by Provider: 12/30/18 20:30 Mode of Arrival: Ambulatory Limitations: No Limitations Description of Symptoms (Recalled from ER Triage Doc. by RN): C/O EPIGASTRIC PAIN SINCE THIS AM - History of Present Illness HPI narrative: Poor historian. Complains of generalized abdominal pain that started this morning. Says it feels like his pancreas, says he has had a problem with it before about a year ago. He thinks he was admitted here or at [facility]. He says they told him it was probably due to drinking. Patient is still a drinker. Says that he drank a pint of vodka yesterday. Denies being a daily drinker, says he is not going to withdrawal when he stops drinking. Denies vomiting, diarrhea. Has felt feverish, but has not taken his temperature. Has had intermittent chest pains today lasting a couple of minutes, he thinks 2 episodes. He is always short of breath, he is a smoker. He says he always wheezes. He always has a cough. Denies urinary symptoms. Denies any radiation of pain. States he has had 3 surgeries, one on his colon. Cannot remember the others. He says that his surgery on his colon was because it was torn. - Related Data Home Medications Medication Instructions Recorded Confirmed Albuterol Sulfate [Albuterol HFA 1 - 2 puffs IH Q6HP PRN 05/16/18 12/30/18 Inhaler] Allopurinol [Allopurinol 100mg 100 mg PO BID 05/16/18 12/30/18 tablet] Aspirin [Aspirin 325mg Tab] 325 mg PO DAILY 05/16/18 12/30/18 Buspirone HCl [Buspar 10mg 10 mg PO DAILY 05/16/18 12/30/18 tablet] Colchicine [Colcrys 0.6mg tablet] 0.6 mg PO DAILY 05/16/18 12/30/18 Duloxetine HCl [Cymbalta] 30 mg PO DAILY 05/16/18 12/30/18 Metoprolol Succinate 50 mg PO DAILY 05/16/18 12/30/18 Potassium Chloride 20 meq PO DAILY 05/16/18 12/30/18 Quetiapine Fumarate 100 mg PO DAILY 05/16/18 12/30/18 Simvastatin 40 mg PO HS 05/16/18 12/30/18 clonazePAM [Clonazepam] 0.5 mg PO BID 05/16/18 12/30/18 raNITIdine HCl [Ranitidine HCl] 300 mg PO DAILY 05/16/18 12/30/18 predniSONE [Deltasone 20mg 20 mg PO BID 05/18/18 12/30/18 tablet] Allergies Allergy/AdvReac Type Severity Reaction Status Date / Time No Known Allergies Allergy Verified 04/30/18 11:22 [facility] History - Hepatitis A Screen Drug use history?: No High risk sexual behaviors?: No History of sexually transmitted infection?: No Currently employed?: No Childcare worker?: No Do you have indoor plumbing?: Yes Do you have electricity?: Yes Attestation statement:: This patient has been screened for Hepatitis A risk factors. I have reviewed the patient's past medical history: Yes Medical History: Reports:: Anxiety, Asthma, Cancer, Chronic Obstructive Pulmonary Disease (COPD), Hyperlipidemia, Hypertension, Lung Disease (copd, asthma) Denies:: Diabetes Mellitus Type 1, Diabetes Mellitus Type 2, Internal Pacemaker, MRSA, Seizures Other Medical History: Reports: Hypothyroidism, Other (gout). Denies: Blood Transfusion Reaction Laterality Cases: Bilateral: Other Other Surgeries: Yes: Cancer Surgery, Colonoscopy, Colon Resection, EGD. No: Pacemaker Amputation: No Fractures: No Comment: prostate - Social History Smoking Status: Current every day smoker Tobacco Type: cigarettes # Packs/Day (cigarettes): 1 Alcohol Intake: current Alcohol Intake Frequency:: a few times a week Substance Use Type: denies use Occupational Status: retired Housing: house Household Members: none - Psychiatric History Pschychiatric History:: Reports:: Anxiety Family Hx:: No significant family history ROS Obtained: Yes All systems reviewed & no additional complaints - Constitutional Constitutional: Reports fever(s) (Subjective) - Cardiovascular Cardiovascular: Reports chest pain - Respiratory Respiratory: Yes cough, Yes dyspnea (Chronic) - Gastrointestinal Gastrointestingal: Reports: abdominal pain. Denies: diarrhea, vomiting (Chronic) - Genitourinary Male Genitourinary: Denies difficulty urinating - Allergic/Immunologic Comments: Has a skin lesion right upper quadrant of his abdomen that has been present for 1 year, has not had it checked. Physical Exam - General General appearance: alert, in no apparent distress - Head Head exam: atraumatic, normocephalic - Eye Eye exam: Present: normal appearance, PERRL, EOMI - ENT ENT exam: Present: mucous membranes moist - Neck Neck exam: Present: normal inspection, trachea midline - Chest Chest inspection: Present: normal inspection, symmetric chest wall rise - Respiratory Respiratory exam: Present: wheezes (Bilateral) - Cardiovascular Cardiovascular exam: Present: regular rate, normal rhythm, normal heart sounds - Abdominal Exam Abdominal exam: Present: tenderness, guarding, normal bowel sounds - Extremities Exam Extremities exam: Present: normal inspection, full ROM - Neurological Exam Neurological exam: Present: alert, oriented X3 - Psychiatric Psychiatric exam: Present: normal affect, normal mood - Expanded Skin Exam Comment: 2 cm hyperpigmented circular lesion right upper quadrant of abdomen. Central raised area approximately 1 cm diameter. Patchy crusty areas over the lesion.
[2018-12-30 22:21] LABS: Activated Partial Thrombo Time 26.8 seconds (23.6-34.0); INR 1.03 (0.9-1.1); Prothrombin Time 10.7 seconds (9.4-11.8)
[2018-12-30 22:23] LABS: Phosphorous 2.9 mg/dL (2.4-4.9)
[2018-12-30 22:25] LABS: Amphetamine/Metha Screen,Urine Negative ng/mL (<1000); Barbiturates Screen,Urine Negative ng/mL (<200); Benzodiazepines Screen,Urine Negative ng/mL (<200); Cannabinoid Screen,Urine Positive ng/mL (<50); Cocaine Screen,Urine Negative ng/mL (<300); Methadone Screen,Urine Negative ng/mL (<300); Opiate Screen,Urine Negative ng/mL (<300); Phencyclidine Screen,Urine Negative ng/mL (<25)
--- NOTE | 2018-12-31 07:55 | History & Physical Report ---
*Admission Date: 12/30/18 *Chief complaint: abdominal pain *History of present illness: Mr. Phillips 63-year-old gentleman with history of chronic pancreatitis and alcoholism. He presented to the ER with development of abdominal pain over the course of the day. States the pain was diffuse across the top of his abdomen. Denies nausea vomiting or diarrhea. States that he had been sober for over a year up until recently when he started drinking again. Has been drinking roughly a pint of vodka a day for the past few weeks. Last drink was 2 to 3 days ago. Patient denies any fevers but does complain of some sweats. Assessment in the ER showed elevation of lipase, tenderness of abdomen, and CT scan with findings of acute on chronic pancreatitis. Initiated on IV fluids and bowel rest. Patient also initiated on CIWA scoring and oxazepam scheduled to minimize risk for withdrawal symptoms. Admitted to medicine for further management [facility] History I have reviewed the patient's past medical history: Yes Medical History: Reports:: Anxiety, Asthma, Cancer (Colon "They said they got it all."), Chronic Obstructive Pulmonary Disease (COPD), Hyperlipidemia, Hypertension, Lung Disease (copd, asthma) Denies:: Diabetes Mellitus Type 1, Diabetes Mellitus Type 2, Internal Pacemaker, MRSA, Seizures *Have you ever received a pneumonia vaccine?: Yes *Have you received a flu vaccine this season?: Yes Other Medical History: Reports: Hypothyroidism, Other (gout). Denies: Blood Transfusion Reaction Laterality Cases: Bilateral: Other Other Surgeries: Yes: Cancer Surgery, Colonoscopy, Colon Resection, EGD, Other (prostatectomy). No: Pacemaker Amputation: No Fractures: No - *Social History Educational Level: Attended High School Smoking Status: Current every day smoker Tobacco Type: cigarettes # Packs/Day (cigarettes): 1 Alcohol Intake: current Alcohol Intake Frequency:: a few times a week Substance Use Type: marijuana Last Used Substance: days (ago) *Occupational Status:: retired, disabled Housing: house Household Members: none *Travel in the last 8 weeks: None - Psychiatric History Expresses thoughts of harming self/others: None Suicide Plan Description: No Plan Pschychiatric History:: Reports:: Anxiety Family Hx:: No significant family history Review of Systems - Review of Systems Review of systems:: pertinent systems reviewed and negative unless documented below Meds Home Medications Medication Instructions Recorded Confirmed Type Albuterol Sulfate [Albuterol HFA 1 - 2 puffs IH Q6HP PRN 05/16/18 12/30/18 History Inhaler] Allopurinol [Allopurinol 100mg 100 mg PO BID 05/16/18 12/30/18 History tablet] Aspirin [Aspirin 325mg Tab] 325 mg PO DAILY 05/16/18 12/30/18 History Buspirone HCl [Buspar 10mg 10 mg PO DAILY 05/16/18 12/30/18 History tablet] Colchicine [Colcrys 0.6mg tablet] 0.6 mg PO DAILY 05/16/18 12/30/18 History Duloxetine HCl [Cymbalta] 30 mg PO DAILY 05/16/18 12/30/18 History Metoprolol Succinate 50 mg PO DAILY 05/16/18 12/30/18 History Potassium Chloride 20 meq PO DAILY 05/16/18 12/30/18 History Quetiapine Fumarate 100 mg PO DAILY 05/16/18 12/30/18 History Simvastatin 40 mg PO HS 05/16/18 12/30/18 History clonazePAM [Clonazepam] 0.5 mg PO BID 05/16/18 12/30/18 History raNITIdine HCl [Ranitidine HCl] 300 mg PO DAILY 05/16/18 12/30/18 History predniSONE [Deltasone 20mg 20 mg PO BID 05/18/18 12/30/18 History tablet] Allergies Allergy/AdvReac Type Severity Reaction Status Date / Time No Known Allergies Allergy Verified 04/30/18 11:22 Exam Vital signs and Labs for Last 24 Hours: Temp Pulse Resp BP Pulse Ox 97.6 F 90 20 163/109 H 91 L 12/31/18 04:00 12/31/18 05:26 12/31/18 04:00 12/31/18 04:00 12/31/18 05:26 Laboratory Results - last 24 hr 12/30/18 18:00: WBC 8.6, RBC 5.85, Hgb 18.6 H*, Hct 59.0 H, MCV 100.9 H, MCH 31.8 H, MCHC 31.5 L, RDW 14.1, Plt Count 207, MPV 7.7, Neut % (Auto) 54.3, Lymph % (Auto) 35.6, [place] % (Auto) 5.8, Eos % (Auto) 3.2, Baso % (Auto) 1.0, Neut # (Auto) 4.7, Lymph # (Auto) 3.1, [place] # (Auto) 0.5, Eos # (Auto) 0.3, Baso # (Au to) 0.1 12/30/18 18:00: Sodium 140, Potassium 4.4, Chloride 100, Carbon Dioxide 32, Anion Gap 12.4, BUN 4 L, Creatinine 1.14, Estimated Creat Clear 70, Estimated GFR 65, Est GFR ( Amer) 79, Glucose 127 H, Calcium 8.9, Total Bilirubin 0.5, AST 52 H, ALT 58, Alkaline Phosphatase 173 H, Total Protein 7.3, Albumin 3.7, Globulin 3.6 H, Albumin/Globulin Ratio 1.0 L, Amylase 101, Lipase 817 H 12/30/18 18:00: Troponin I < 0.02 12/30/18 18:00: PT 10.7, INR 1.03, APTT 26.8 12/30/18 18:00: Phosphorus 2.9, Magnesium 1.4 12/30/18 18:45: Urine Color Yellow, Urine Appearance Clear, Urine pH 6.5, Ur Specific [place] 1.020, Urine Protein Trace, Urine Glucose (UA) Negative, Urine Ketones Negative, Urine Blood Negative, Urine Nitrate Negative, Urine Bilirubin Negative, Urine Urobilinogen 0.2, Ur Leukocyte Esterase Negative, Urine WBC Occasional, Ur Squamous Epith Cells Occasional, Urine Bacteria Trace 12/30/18 18:45: Urine Opiates Screen Negative, Urine Methadone Screen Negative, Ur Barbituates Screen Negative, Ur Phencyclidine Scrn Negative, Ur Amphetamines Screen Negative, U Benzodiazepines Scrn Negative, Urine Cocaine Screen Negative, U Marijuana (THC) Screen Positive H I & O for Last 24 hours: Intake & Output 12/28/18 12/29/18 12/30/18 12/31/18 23:59 23:59 23:59 23:59 Intake Total 240 / 290 1288 / 1288 Output Total 400 / 400 Balance 240 / 290 888 / 888 Weight 67.358 kg 68.152 kg - Constitutional mild distress - *Routine HEENT Exam Head: Present: normocephalic, atraumatic Eye: Present: EOMI, PERRL ENT: Present: mucous membranes moist - *Routine Neck Exam Present: supple, full ROM - *Routine Respiratory Exam Present: prolonged expiratory phase, rhonchi, wheezes (Intermittent) - *Routine Cardiovascular Exam Present: RRR, Normal S1. Absent: murmur - *Routine Abdominal Exam Present: normoactive bowel sounds, tenderness, distended, guarding. Absent: rebound - *Routine Rectal Exam Patient deferred: visual exam - *Routine Exam Patient deferred: penile exam - *Routine Extremities Exam Present: pulses intact (Though diminished, 1+). Absent: cyanosis, clubbing, edema - *Routine Skin Exam Present: intact. Absent: cyanosis, erythema - *Routine Neurological Exam Present: alert, oriented X3. Absent: altered mental status Assessment and Plan (1) Alcoholic pancreatitis Current visit: Yes Status: Acute Qualifiers: Chronicity: acute Acute pancreatitis complication: unspecified Qualified Code(s): K85.20 - Alcohol induced acute pancreatitis without necrosis or infection Category: Medical Code(s): K85.20 - Alcohol induced acute pancreatitis without necrosis or infection (2) Alcoholism Current visit: No Status: Chronic Category: Medical Code(s): F10.20 - Alcohol dependence, uncomplicated (3) COPD (chronic obstructive pulmonary disease) Problem details: Qualifies for home oxygen. This will be set up. Current visit: No Status: Chronic Qualifiers: COPD type: COPD with acute exacerbation Qualified Code(s): J44.1 - Chronic obstructive pulmonary disease with (acute) exacerbation Category: Medical Code(s): J44.9 - Chronic obstructive pulmonary disease, unspecified (4) HTN (hypertension) Current visit: No Status: Chronic Qualifiers: Hypertension type: essential hypertension Qualified Code(s): I10 - Essential (primary) hypertension Category: Medical Code(s): I10 - Essential (primary) hypertension (5) Tobacco use disorder Current visit: No Status: Chronic Category: Medical Code(s): F17.200 - Nicotine dependence, unspecified, uncomplicated - Assessment and plan all Dx Assessment and Plan for all problems:: Mr. Rosen is a 63-year-old male with history of alcohol abuse,, tobacco dependence, COPD, who presents with acute alcoholic pancreatitis. Will transition IV fluids to LR at 150 an hour. Continue CIWA scoring and withdrawal protocol with scheduled oxazepam. At this time will allow clear liquid diet. Patient's condition continues to remain tenuous, anticipate continued need for inpatient admission.
--- NOTE | 2018-12-31 10:12 | Pharmacy Consult Notes ---
[facility] Pharmacy VTE Monitoring - Patient Demographics Admission date: 12/30/18 Report Date: 12/31/18 Time: 10:12 Allergies/Adverse Reactions: Patient Allergies No Known Allergies Allergy (Verified 04/30/18 11:22) Height: 1.73 m Weight: 68.152 kg Patient Problems: Current Active Problems Alcoholic pancreatitis (Acute) - VTE Risk Labs: VTE Related Lab Results Hgb 18.6 g/dL (14.1-18.0) H* 12/30/18 18:00 Hct 59.0 % (42.0-52.0) H 12/30/18 18:00 Plt Count 207 K/mm3 (142-424) 12/30/18 18:00 PT 10.7 seconds (9.4-11.8) 12/30/18 18:00 INR 1.03 (0.9-1.1) 12/30/18 18:00 APTT 26.8 seconds (23.6-34.0) 12/30/18 18:00 BUN 4 mg/dL (7-18) L 12/30/18 18:00 Creatinine 1.14 mg/dL (0.70-1.30) 12/30/18 18:00 Estimated Creat Clear 70 mL/min (50-200) 12/30/18 18:00 Was VTE Risk Assessment Performed: Yes VTE Score: 3 VTE Risk Level: Low Risk - Prophylaxis VTE Prophylaxis Ordered?: Yes Types of VTE Prophylaxis: TEDS Knee High Location of Applied Device: Bilateral Lower Extremeties - VTE Diagnosis Confirmed Treatment or plan recommended: Continue Current Treatment
[2019-01-01 06:30] LABS: Basophils % 0.5 % (0.1-2.0); Eosinophils # 0.2 K/mm3 (0.0-0.4); Eosinophils % 3.9 % (0.1-12.0); Hematocrit 46.9 % (42.0-52.0); Hemoglobin 15.4 g/dL (14.1-18.0); Lymphocytes # 1.9 K/mm3 (0.7-4.5); Lymphocytes % 37.8 % (10-50); Mean Corpuscular HGB Conc 32.9 g/dL (31.8-35.4); Mean Corpuscular Volume 98.7 fl (80-94); Mean Platelet Volume 7.5 fl (7.4-10.4); Monocytes # 0.4 K/mm3 (0.1-1.0); Monocytes % 8.8 % (1.7-9.3); Neutrophils # 2.4 K/mm3 (1.8-7.8); Neutrophils % 48.9 % (37.0-80.0); Platelet Count 145 K/mm3 (142-424); Red Blood Count 4.75 M/mm3 (4.60-6.20); Red Cell Distribution Width 14.3 % (11.5-17.5); White Blood Count 4.9 K/mm3 (4.8-10.8)
[2019-01-01 06:50] LABS: Albumin Level 2.8 gm/dL (3.4-5.0); Albumin/Globulin Ratio 1.1 (1.1-1.8); Anion Gap 8.6 mEq/L (5-15); Bilirubin,Total 0.9 mg/dL (0.2-1.0); Globulin 2.5 gm/dl (1.3-3.2); Total Protein,Serum 5.3 gm/dL (6.4-8.2)
[2019-01-02 06:19] LABS: Basophils % 0.4 % (0.1-2.0); Eosinophils # 0.2 K/mm3 (0.0-0.4); Eosinophils % 3.5 % (0.1-12.0); Hematocrit 43.4 % (42.0-52.0); Hemoglobin 14.3 g/dL (14.1-18.0); Lymphocytes # 1.7 K/mm3 (0.7-4.5); Lymphocytes % 40.5 % (10-50); Mean Platelet Volume 7.5 fl (7.4-10.4); Monocytes # 0.4 K/mm3 (0.1-1.0); Monocytes % 9.3 % (1.7-9.3); Neutrophils # 1.9 K/mm3 (1.8-7.8); Neutrophils % 46.3 % (37.0-80.0); Platelet Count 148 K/mm3 (142-424); Red Blood Count 4.47 M/mm3 (4.60-6.20); Red Cell Distribution Width 14.2 % (11.5-17.5); White Blood Count 4.2 K/mm3 (4.8-10.8)
[2019-01-02 06:39] LABS: Albumin Level 2.4 gm/dL (3.4-5.0); Albumin/Globulin Ratio 1.1 (1.1-1.8); Anion Gap 7.4 mEq/L (5-15); Bilirubin,Total 1.2 mg/dL (0.2-1.0); Calcium 7.9 mg/dL (8.5-10.1); Globulin 2.2 gm/dl (1.3-3.2); Total Protein,Serum 4.6 gm/dL (6.4-8.2)
--- NOTE | 2019-01-02 08:35 | Progress Note ---
Internal Medicine - PN: Subj *Date: 01/02/19 *Time: 08:33 Interval history: Patient has tried to leave the floor a couple of times through the night to "smoke" and as a result the nurses had to disconnect his intravenous line because he has threatened to rip it out. He states that his pain has been bad through the night and has requested IV morphine but then immediately wishes to eat. I told him this morning that he was not going to be able to eat if he still complained of pain and he tells me this morning that his pain is "a lot better." Exam Vital signs and Labs for Last 24 Hours: Temp Pulse Resp BP Pulse Ox 97.9 F 85 20 135/89 91 L 01/02/19 08:00 01/02/19 08:00 01/02/19 08:00 01/02/19 08:00 01/02/19 08:00 Laboratory Results - last 24 hr 01/02/19 05:40: WBC 4.2 L, RBC 4.47 L, Hgb 14.3, Hct 43.4, MCV 97.0 H, MCH 32.0 H, MCHC 33.0, RDW 14.2, Plt Count 148, MPV 7.5, Neut % (Auto) 46.3, Lymph % (Auto) 40.5, [place] % (Auto) 9.3, Eos % (Auto) 3.5, Baso % (Auto) 0.4, Neut # (Auto) 1.9, Lymph # (Auto) 1.7, [place] # (Auto) 0.4, Eos # (Auto) 0.2, Baso # (Auto) 0.0 01/02/19 05:40: Sodium 140, Potassium 3.4 L, Chloride 102, Carbon Dioxide 34 H, Anion Gap 7.4, BUN 6 L, Creatinine 1.02, Estimated Creat Clear 76, Estimated GFR 74, Est GFR ( Amer) 89, Glucose 99 D, Calcium 7.9 L, Total Bilirubin 1.2 H, AST 23, ALT 29, Alkaline Phosphatase 151 H, Total Protein 4.6 L, Albumin 2.4 L D, Globulin 2.2, Albumin/Globulin Ratio 1.1 I & O for Last 24 hours: Intake & Output 08/01/19 08/02/19 08/03/19 08/04/19 11:59 11:59 11:59 11:59 Intake Total 2007 4525 / 4525 3521 / 3521 Output Total 400 / 400 Balance 1608 / 1608 4525 / 4525 3521 / 3521 Weight 150 lb 4 oz 157 lb 3 oz 159 lb 6 oz Narrative: Patient is alert. Oriented. Oropharynx clear and moist. Heart rate regular. Lungs have smoker's rhonchi. Abdomen soft, minimally tender in the epigastric area but improved over baseline. Perfusion is good. Assessment and Plan (1) Alcoholic pancreatitis Current visit: Yes Status: Acute Qualifiers: Chronicity: acute Acute pancreatitis complication: unspecified Qualified Code(s): K85.20 - Alcohol induced acute pancreatitis without necrosis or infection Category: Medical Code(s): K85.20 - Alcohol induced acute pancreatitis without necrosis or infection (2) Alcoholism Current visit: No Status: Chronic Category: Medical Code(s): F10.20 - Alcohol dependence, uncomplicated (3) COPD (chronic obstructive pulmonary disease) Problem details: Qualifies for home oxygen. This will be set up. Current visit: No Status: Chronic Qualifiers: COPD type: COPD with acute exacerbation Qualified Code(s): J44.1 - Chronic obstructive pulmonary disease with (acute) exacerbation Category: Medical Code(s): J44.9 - Chronic obstructive pulmonary disease, unspecified (4) HTN (hypertension) Current visit: No Status: Chronic Qualifiers: Hypertension type: essential hypertension Qualified Code(s): I10 - Essential (primary) hypertension Category: Medical Code(s): I10 - Essential (primary) hypertension (5) Tobacco use disorder Current visit: No Status: Chronic Category: Medical Code(s): F17.200 - Nicotine dependence, unspecified, uncomplicated - Assessment and plan all Dx Assessment and Plan for all problems:: Slowly advance diet. Hold IV morphine. Fluid status is improving. Check labs tomorrow.
[2019-01-03 05:40] LABS: Basophils % 0.6 % (0.1-2.0); Eosinophils # 0.2 K/mm3 (0.0-0.4); Eosinophils % 4.3 % (0.1-12.0); Hematocrit 43.7 % (42.0-52.0); Hemoglobin 14.7 g/dL (14.1-18.0); Lymphocytes # 1.8 K/mm3 (0.7-4.5); Lymphocytes % 39.7 % (10-50); Mean Corpuscular HGB Conc 33.6 g/dL (31.8-35.4); Mean Platelet Volume 7.5 fl (7.4-10.4); Monocytes # 0.5 K/mm3 (0.1-1.0); Monocytes % 11.5 % (1.7-9.3); Platelet Count 168 K/mm3 (142-424); Red Blood Count 4.46 M/mm3 (4.60-6.20); Red Cell Distribution Width 14.4 % (11.5-17.5); White Blood Count 4.5 K/mm3 (4.8-10.8)
[2019-01-03 05:55] LABS: Albumin Level 2.6 gm/dL (3.4-5.0); Albumin/Globulin Ratio 0.8 (1.1-1.8); Bilirubin,Total 0.7 mg/dL (0.2-1.0); Calcium 8.5 mg/dL (8.5-10.1); Globulin 3.1 gm/dl (1.3-3.2); Total Protein,Serum 5.7 gm/dL (6.4-8.2)
--- NOTE | 2019-01-03 08:24 | Discharge Summary ---
General - General Admission date:: 12/30/18 Discharge date: 01/03/19 HPI HPI: Mr. Phillips 63-year-old gentleman with history of chronic pancreatitis and alcoholism. He presented to the ER with development of abdominal pain over the course of the day. States the pain was diffuse across the top of his abdomen. Denies nausea vomiting or diarrhea. States that he had been sober for over a year up until recently when he started drinking again. Has been drinking roughly a pint of vodka a day for the past few weeks. Last drink was 2 to 3 days ago. Patient denies any fevers but does complain of some sweats. Assessment in the ER showed elevation of lipase, tenderness of abdomen, and CT scan with findings of acute on chronic pancreatitis. Initiated on IV fluids and bowel rest. Patient also initiated on CIWA scoring and oxazepam scheduled to minimize risk for withdrawal symptoms. Admitted to medicine for further management Hospital Course Hospital Course: Patient was admitted, plan executed as above. Withdrawal scores declined. Patient was given IV fluids and IV pain medication. He vacillated between complaining of pain and complaining of hunger, but finally was able to be advanced to a low-fat diet. Of note drug screens positive for THC in addition to his alcoholism issues. Over the last 12 hours patient is improved nicely, has been eating well. He is fully dressed this morning and states that he "needs to go to work." Exam has improved as noted below. Patient will be discharged home, Tylenol used judiciously for pain, 1 pill 3 times a day recommended. Obviously it was recom mended that he abstain from alcohol and marijuana in the future-this is a very high risk problem for him at this point but he declines any kind of rehabilitation or further evaluation. Follow-up will be in our office in the next week. Objective Vital signs: Temp Pulse Resp BP Pulse Ox 98.6 F 77 18 147/91 H 96 01/03/19 04:00 01/03/19 04:00 01/03/19 04:00 01/03/19 04:00 01/03/19 04:00 Narrative: Patient is somewhat of an unusual affect but is oriented x3. Oropharynx clear, no JVD. Lungs clear except for some baseline smoker's rhonchi. Heart rate regular without murmurs. Abdomen soft, minimal epigastric pain with deep palpation but vastly improved even after a very large breakfast of low-fat diet today. No extremity edema or clubbing. Able to move all extremities and walk about the room under his own power with no ataxia. Results Labs on day of discharge: Labs from last 24 hours 01/03/19 01/03/19 05:16 05:16 WBC 4.5 L RBC 4.46 L Hgb 14.7 Hct 43.7 MCV 98.0 H MCH 32.9 H MCHC 33.6 RDW 14.4 Plt Count 168 MPV 7.5 Neut % (Auto) 44.0 Lymph % (Auto) 39.7 [place] % (Auto) 11.5 H Eos % (Auto) 4.3 Baso % (Auto) 0.6 Neut # (Auto) 2.0 Lymph # (Auto) 1.8 [place] # (Auto) 0.5 Eos # (Auto) 0.2 Baso # (Auto) 0.0 Sodium 141 Potassium 4.0 Chloride 101 Carbon Dioxide 35 H Anion Gap 9.0 BUN 10 D Creatinine 1.21 Estimated Creat Clear 64 Estimated GFR 61 Est GFR ( Amer) 73 Glucose 119 H D Calcium 8.5 Total Bilirubin 0.7 AST 46 H D ALT 39 D Alkaline Phosphatase 182 H Total Protein 5.7 L Albumin 2.6 L Globulin 3.1 Albumin/Globulin Ratio 0.8 L DS: Diagnosis - Discharge Diagnosis (1) Alcoholic pancreatitis Status: Resolved (2) Alcoholism Status: Chronic (3) COPD (chronic obstructive pulmonary disease) Status: Chronic Problem details: Qualifies for home oxygen. This will be set up. (4) HTN (hypertension) Status: Chronic (5) Tobacco use disorder Status: Chronic Discharge Plan - Patient Discharge Instructions ACTIVITY: Continue current activity DIET: low fat, low cholesterol Patient Instructions: Blood Alcohol Level, Acute Pancreatitis, Alcohol Use Disorder, Chronic Pancreatitis, DI for Pancreatitis, DI for Alcohol Abuse, Drug and Alcohol Withdrawal, DI for Drug or Alcohol Withdrawal - Follow up Plan Follow up with: Shankar Raya MD [Primary Care Provider] - 1 week Disposition: Home, [facility] Medications: Home Medications Medication Instructions Recorded Confirmed Type Albuterol Sulfate [Albuterol HFA 2 puffs IH Q4HP PRN 05/16/18 12/31/18 History Inhaler] Allopurinol [Allopurinol 100mg 100 mg PO BID 05/16/18 12/30/18 History tablet] Aspirin [Aspirin 325mg Tab] 325 mg PO DAILY 05/16/18 12/30/18 History Buspirone HCl [Buspar 10mg 10 mg PO BID 05/16/18 12/31/18 History tablet] Colchicine [Colcrys 0.6mg tablet] 0.6 mg PO DAILY 05/16/18 12/30/18 History Duloxetine HCl [Cymbalta] 30 mg PO DAILY 05/16/18 12/30/18 History Metoprolol Succinate 50 mg PO DAILY 05/16/18 12/30/18 History Potassium Chloride 20 meq PO DAILY 05/16/18 12/30/18 History Quetiapine Fumarate 100 mg PO HS 05/16/18 12/31/18 History Simvastatin 40 mg PO HS 05/16/18 12/30/18 History clonazePAM [Clonazepam] 0.5 mg PO BID 05/16/18 12/30/18 History raNITIdine HCl [Ranitidine HCl] 300 mg PO HSP PRN 05/16/18 12/31/18 History Prescriptions/Medication Reconciliation: Continued Simvastatin 40 mg PO HS raNITIdine HCl [Ranitidine HCl] 300 mg PO HSP PRN PRN Reason: GERD Potassium Chloride 20 meq PO DAILY Metoprolol Succinate 50 mg PO DAILY Colchicine [Colcrys 0.6mg tablet] 0.6 mg PO DAILY Allopurinol [Allopurinol 100mg tablet] 100 mg PO BID clonazePAM [Clonazepam] 0.5 mg PO BID Albuterol Sulfate [Albuterol HFA Inhaler] 2 puffs IH Q4HP PRN PRN Reason: SOA/WHEEZING Quetiapine Fumarate 100 mg PO HS Duloxetine HCl [Cymbalta] 30 mg PO DAILY Buspirone HCl [Buspar 10mg tablet] 10 mg PO BID Aspirin [Aspirin 325mg Tab] 325 mg PO DAILY
== END 2019-01-03 09:45 | disposition home or self-care (01) | DRG 440 ==
LOC: 2ND 17:37 → ER 17:37 → OBSVTOIN 22:09 → 2ND 22:10
PROVIDERS: ADMIT Family Medicine; ATTEND Internal Medicine Adolescent Medicine
CPT/HCPCS: 36415; 74176; 80053; 80305; 81001; 82150; 83690; 83735; 84100; 84484; 85025; 85610; 85730; 93005; 94640; 94761; 96365; 96375; 99284; J2405

== ENCOUNTER 2019-01-21 15:45 | Inpatient (IN) ==
--- NOTE | 2019-01-21 15:55 | Emergency Department Note ---
ED Disposition Clinical Impression: Acute pancreatitis Qualifiers: Pancreatitis type: alcohol induced Acute pancreatitis complication: no infection or necrosis Qualified Code(s): K85.20 - Alcohol induced acute pancreatitis without necrosis or infection Disposition: Admitted As Inpatient Condition on Discharge: Fair - Critical Care Critical Care Time: No Attestation: On , the high probability of a clinically significant, sudden or life threatening deterioration of the following system(s) required my full and direct attention, intervention and personal management. The time I documented below is in addition to time spent performing reported procedures but includes the following listed in this critical care notation. Medical Decision Making - Steven Inquiry Pt receiving controlled substance: Yes Steven was queried for this patient: No Reason not queried -: Emergent pt cond-no time Risks and benefits of using a controlled substance: were not discussed with pt by me Vital Signs: 01/21/19 15:52 01/21/19 16:15 01/21/19 18:00 Temperature 98.6 F Temperature Source Oral Pulse Rate [Left Radial] 103 H 108 H 98 H Respiratory Rate 18 Blood Pressure [Right Arm] 163/102 H 175/102 H 167/107 H Blood Pressure Mean [Right Arm] 122 126 127 Blood Pressure Source [Right Arm] Automatic Cuff Automatic Cuff Blood Pressure Position [Right Arm] Sitting Supine 02 Sat by Pulse Oximetry 99 96 96 Oxygen Delivery Method Room Air Room Air 01/21/19 18:30 01/21/19 19:00 01/21/19 19:43 Temperature Temperature Source Pulse Rate [Left Radial] 105 H 97 H 95 H Respiratory Rate 18 Blood Pressure [Right Arm] 158/91 H 157/83 H 152/102 H Blood Pressure Mean [Right Arm] 113 107 118 Blood Pressure Source [Right Arm] Blood Pressure Position [Right Arm] Sitting 02 Sat by Pulse Oximetry 95 95 98 Oxygen Delivery Method Room Air - Lab Data Lab Results 01/21/19 15:46: WBC 10.7, RBC 5.00, Hgb 16.4, Hct 48.9, MCV 97.9 H, MCH 32.8 H, MCHC 33.5, RDW 14.4, Plt Count 258, MPV 7.0 L, Neut % (Auto) 69.3, Lymph % (Au to) 19.9, [place] % (Auto) 7.7, Eos % (Auto) 2.2, Baso % (Auto) 0.8, Neut # (Auto) 7.4, Lymph # (Auto) 2.1, [place] # (Auto) 0.8, Eos # (Auto) 0.2, Baso # (Auto) 0.1 01/21/19 15:46: Sodium 136, Potassium 3.5, Chloride 98, Carbon Dioxide 32, Anion Gap 9.5, BUN 7, Creatinine 1.10, Estimated Creat Clear 75, Estimated GFR 68, Est GFR ( Amer) 82, Glucose 155 H, Calcium 9.3, Total Bilirubin 0.9, AST 22, ALT 29, Alkaline Phosphatase 141 H, Troponin I < 0.02, Total Protein 7.1, Albumin 3.5, Globulin 3.6 H, Albumin/Globulin Ratio 1.0 L, Lipase 2490 H 01/21/19 15:46: Plasma/Serum Alcohol 0 01/21/19 16:00: Urine Color Yellow, Urine Appearance Clear, Urine pH 6.0, Ur Specific [place] 1.025, Urine Protein Negative, Urine Glucose (UA) Negative, Urine Ketones Negative, Urine Blood Negative, Urine Nitrate Negative, Urine Bilirubin 1+ A, Urine Urobilinogen 0.2, Ur Leukocyte Esterase Negative, Urine RBC Occasional, Ur Squamous Epith Cells Occasional, Urine Mucus 1+ Result diagrams: 01/21/19 15:46 01/21/19 15:46 Orders (Tests/Meds): ED MEDICATIONS Generic Name Dose Route Start Last Admin Trade Name Meera PRN Reason Stop Dose Admin Sodium Chloride 10 ml 01/21/19 17:31 01/21/19 17:32 Rad-Saline Flush 10ml Syringe IV 02/20/19 17:30 10 ml NEEDED PRN Administration Maintain IV Site Discontinued Medications Generic Name Dose Route Start Last Admin Trade Name Freq PRN Reason Stop Dose Admin Ioversol 75 ml 01/21/19 17:31 01/21/19 17:32 Rad-Optiray 350 100ml Vial IV 01/21/19 17:32 75 ml ONCE ONE Administration Protocol Morphine Sulfate 4 mg 01/21/19 15:51 01/21/19 16:06 Morphine 4mg/Ml Syringe IV 01/21/19 15:52 4 mg ONCE ONE Administration Ondansetron HCl 4 mg 01/21/19 15:51 01/21/19 16:06 Zofran 4mg/2ml Vial IV 01/21/19 15:52 4 mg ONCE ONE Administration Sodium Chloride 1,000 ml 01/21/19 15:51 01/21/19 16:06 Sod Chlor 0.9% 1000ml Bag IV 01/21/19 15:52 1,000 ml BOLUS ONE Administration ORDERS Category Date Time Status CT abdomen pelvis w con Stat Cat Scan 01/21/19 15:52 Taken - CT Data CT Scan: Abdomen, Pelvis Time Received: 19:[address] Reviewed: Yes: I have viewed the radiologist's interpretation Findings Narrative: CT scan interpreted by [facility] radiologist. Faxed report received and reviewed: Acute duodenitis with concurrent acute pancreatitis with pancreatic pseudocysts and changes of chronic pancreatitis. - ECG Data Tracing #1 EKG interpreted by Sarmad Escalante MD: Rhythm: sinus Rate: 98 [place]: normal Ectopy: none Conduction: 1st deg AVB ST Segment Changes: none T Wave Changes: none Q Waves: septal No evidence of acute ischemia or injury Prior electrocardiagrams reviewed. No change from prior tracings. - Physician Consults Physician Consulted: Dorota Time: 19:45 Reason -: Admission Comment/Response: Agrees to admit the patient to the hospital. We discussed the patient's clinical information, including history, exam, laboratory and radiology results and ED course. Per hospital procedure, I will write temporary bridge inpatient orders on the patient. Specific orders requested by the admitting physician: Withdrawal protocol, IV fluids, pain medication Medical Decision Narrative: Records reviewed. History of alcoholism and pancreatitis. Most recently admitted here for alcoholic pancreatitis 12/30/18. Surgery in 2005 and 2006 for perforated diverticulitis. Had colostomy with reversal. Patient states last drank a beer yesterday morning. General Adult HPI - General Stated complaint: lower abd pain Time Seen by Provider: 01/21/19 15:45 - History of Present Illness HPI narrative: Arrives by ambulance complaining of diffuse lower abdominal pain for 2 days. Constant and worsening. No bowel movement in 2 days, but does not feel co nstipated. No vomiting, diarrhea, urinary symptoms, or fever. Has not been able to eat in 2 days. Denies previous similar pain. Has had prior colon surgery for a "ripped colon". He had the colon surgery at this hospital. He says he had 2 prostate surgeries in [place]. - Related Data Home Medications Medication Instructions Recorded Confirmed Albuterol Sulfate [Albuterol HFA 2 puffs IH Q4HP PRN 05/16/18 01/21/19 Inhaler] Allopurinol [Allopurinol 100mg 100 mg PO BID 05/16/18 01/21/19 tablet] Aspirin [Aspirin 325mg Tab] 325 mg PO DAILY 05/16/18 01/21/19 Buspirone HCl [Buspar 10mg 10 mg PO BID 05/16/18 01/21/19 tablet] Colchicine [Colcrys 0.6mg tablet] 0.6 mg PO DAILY 05/16/18 01/21/19 Duloxetine HCl [Cymbalta] 30 mg PO DAILY 05/16/18 01/21/19 Metoprolol Succinate 50 mg PO DAILY 05/16/18 01/21/19 Potassium Chloride 20 meq PO DAILY 05/16/18 01/21/19 Quetiapine Fumarate 100 mg PO HS 05/16/18 01/21/19 Simvastatin 40 mg PO HS 05/16/18 01/21/19 raNITIdine HCl [Ranitidine HCl] 300 mg PO HSP PRN 05/16/18 01/21/19 Allergies Allergy/AdvReac Type Severity Reaction Status Date / Time No Known Allergies Allergy Verified 04/30/18 11:22 [facility] History - Hepatitis A Screen Attestation statement:: This patient has been screened for Hepatitis A risk factors. I have reviewed the patient's past medical history: Yes Medical History: Reports:: Anxiety, Asthma, Cancer (Colon "They said they got it all."), Chronic Obstructive Pulmonary Disease (COPD), Hyperlipidemia, Hypertension, Lung Disease (copd, asthma) Denies:: Diabetes Mellitus Type 1, Diabetes Mellitus Type 2, Internal Pacemaker, MRSA, Seizures Other Medical History: Reports: Hypothyroidism, Other (gout). Denies: Blood Transfusion Reaction Laterality Cases: Bilateral: Other Other Surgeries: Yes: Cancer Surgery, Colonoscopy, Colon Resection, EGD, Other (prostatectomy). No: Pacemaker Amputation: No Fractures: No Comment: prostate - Social History Smoking Status: Current every day smoker Tobacco Type: cigarettes # Packs/Day (cigarettes): 1 Alcohol Intake: current Alcohol Intake Frequency:: a few times a week Substance Use Type: marijuana Occupational Status: retired, disabled Housing: house Household Members: none - Psychiatric History Pschychiatric History:: Reports:: Anxiety Family Hx:: No significant family history ROS Obtained: Yes All systems reviewed & no additional complaints - Constitutional Constitutional: Denies fever(s) - Cardiovascular Cardiovascular: Denies chest pain - Respiratory Respiratory: No dyspnea - Gastrointestinal Gastrointestingal: Reports: abdominal pain, change in bowel habits. Denies: diarrhea, nausea, vomiting - Genitourinary Male Genitourinary: Denies difficulty urinating Physical Exam - General General appearance: alert, in distress (pain) - Head Head exam: atraumatic, normocephalic - Eye Eye exam: Present: normal appearance, EOMI - ENT ENT exam: Present: mucous membranes moist - Neck Neck exam: Present: normal inspection, trachea midline - Chest Chest inspection: Present: normal inspection, symmetric chest wall rise - Respiratory Respiratory exam: Present: normal lung sounds bilaterally, respiratory distress - Cardiovascular Cardiovascular exam: Present: regular rate, normal rhythm, normal heart sounds - Abdominal Exam Abdominal exam: Present: soft, distention, tenderness, normal bowel sounds. Absent: guarding, rebound, rigidity Abdominal tenderness: Present: RLQ, LLQ, suprapubic, moderate - Extremities Exam Extremities exam: Present: normal inspection - Neurological Exam Neurological exam: Present: alert, oriented X3 - Psychiatric Psychiatric exam: Present: normal affect, normal mood - Skin Skin exam: Present: warm, dry
[2019-01-21 16:04] LABS: Basophils # 0.1 K/mm3 (0-0.2); Basophils % 0.8 % (0.1-2.0); Eosinophils # 0.2 K/mm3 (0.0-0.4); Eosinophils % 2.2 % (0.1-12.0); Hematocrit 48.9 % (42.0-52.0); Hemoglobin 16.4 g/dL (14.1-18.0); Lymphocytes # 2.1 K/mm3 (0.7-4.5); Lymphocytes % 19.9 % (10-50); Mean Corpuscular HGB Conc 33.5 g/dL (31.8-35.4); Mean Corpuscular Volume 97.9 fl (80-94); Monocytes # 0.8 K/mm3 (0.1-1.0); Monocytes % 7.7 % (1.7-9.3); Neutrophils # 7.4 K/mm3 (1.8-7.8); Neutrophils % 69.3 % (37.0-80.0); Platelet Count 258 K/mm3 (142-424); Red Cell Distribution Width 14.4 % (11.5-17.5); White Blood Count 10.7 K/mm3 (4.8-10.8)
[2019-01-21 16:10] LABS: Microscopic, Urine URINE MICROSCOPIC (MICROSCOPIC)
[2019-01-21 16:12] LABS: Appearance,Urine CLEAR (Clear); Blood, Urine Negative (Negative); Color,Urine YELLOW (Yellow); Glucose,Urine (UA) Negative (Negative); Ketones,Urine Negative (Negative); Leukocyte Esterase,Urine Negative (Negative); Protein,Urine Negative (Negative); Specific Gravity, Urine 1.025 (1.005-1.030); Urobilinogen,Urine 0.2 EU/dl (0.2)
[2019-01-21 16:25] LABS: Bilirubin,Urine 1+ (Negative)
[2019-01-21 16:29] LABS: Alanine Aminotransferase 29 U/L (12-78); Albumin Level 3.5 gm/dL (3.4-5.0); Alkaline Phosphatase 141 U/L (46-116); Anion Gap 9.5 mEq/L (5-15); Aspartate Amino Transferase 22 U/L (15-37); Bilirubin,Total 0.9 mg/dL (0.2-1.0); Blood Urea Nitrogen 7 mg/dL (7-18); Calcium 9.3 mg/dL (8.5-10.1); Carbon Dioxide 32 mmol/L (21.0-32.0); Chloride 98 mmol/L (98-107); Globulin 3.6 gm/dl (1.3-3.2); Glucose 155 mg/dL (74-106); Sodium 136 mmol/L (136-145); Total Protein,Serum 7.1 gm/dL (6.4-8.2)
[2019-01-21 16:31] LABS: Mucus,Urine 1+ /lpf; RBC,Urine Occasional #/hpf (0-3); Squamous Epithelial Cell,Urine Occasional #/hpf (0-5)
[2019-01-21 21:34] LABS: Phosphorous 3.5 mg/dL (2.4-4.9)
[2019-01-21 21:37] LABS: Activated Partial Thrombo Time 27.8 seconds (23.6-34.0); INR 0.97 (0.9-1.1); Prothrombin Time 10.1 seconds (9.4-11.8)
[2019-01-21 22:06] LABS: Amphetamine/Metha Screen,Urine Negative ng/mL (<1000); Barbiturates Screen,Urine Negative ng/mL (<200); Benzodiazepines Screen,Urine Negative ng/mL (<200); Cannabinoid Screen,Urine Positive ng/mL (<50); Cocaine Screen,Urine Negative ng/mL (<300); Methadone Screen,Urine Negative ng/mL (<300); Opiate Screen,Urine Negative ng/mL (<300); Phencyclidine Screen,Urine Negative ng/mL (<25)
--- NOTE | 2019-01-22 08:31 | Pharmacy Consult Notes ---
[facility] Pharmacy VTE Monitoring - Patient Demographics Admission date: 01/21/19 Report Date: 01/22/19 Time: 08:30 Allergies/Adverse Reactions: Patient Allergies No Known Allergies Allergy (Verified 04/30/18 11:22) Height: 1.73 m Weight: 70.307 kg Patient Problems: Current Active Problems Acute pancreatitis (Acute) - VTE Risk Labs: VTE Related Lab Results Hgb 16.4 g/dL (14.1-18.0) 01/21/19 15:46 Hct 48.9 % (42.0-52.0) 01/21/19 15:46 Plt Count 258 K/mm3 (142-424) 01/21/19 15:46 PT 10.1 seconds (9.4-11.8) 01/21/19 15:46 INR 0.97 (0.9-1.1) 01/21/19 15:46 APTT 27.8 seconds (23.6-34.0) 01/21/19 15:46 BUN 7 mg/dL (7-18) 01/21/19 15:46 Creatinine 1.10 mg/dL (0.70-1.30) 01/21/19 15:46 Estimated Creat Clear 75 mL/min (50-200) 01/21/19 15:46 VTE Score: 3 VTE Risk Level: Low Risk - Prophylaxis VTE Prophylaxis Ordered?: Yes Types of VTE Prophylaxis: TEDS Knee High Location of Applied Device: Bilateral Lower Extremeties
--- NOTE | 2019-01-22 08:36 | History & Physical Report ---
*Admission Date: 01/21/19 *Chief complaint: Abdominal pain *History of present illness: 63-year-old known alcoholic with recurrent pancreatitis and history of colon surgery who presented to emergency department by ambulance with lower abdominal pain and vomiting. Reported that he had cut down his alcohol intake and most recent alcohol intake was over 24 hours ago. In the emergency department found to have elevated lipase, consistent with pancreatitis. Unable to keep liquids down he was noted to hospital for pain control, IV fluids and monitoring. [facility] History I have reviewed the patient's past medical history: Yes Medical History: Reports:: Anxiety, Asthma, Cancer (Colon "They said they got it all."), Chronic Obstructive Pulmonary Disease (COPD), Hyperlipidemia, Hypertension, Lung Disease (copd, asthma) Denies:: Diabetes Mellitus Type 1, Diabetes Mellitus Type 2, Internal Pacemaker, MRSA, Seizures *Have you ever received a pneumonia vaccine?: Yes *Have you received a flu vaccine this season?: Yes Other Medical History: Reports: Hypothyroidism, Other (gout). Denies: Blood Transfusion Reaction Comment:: Significant medical noncompliance Laterality Cases: Bilateral: Other Other Surgeries: Yes: Cancer Surgery, Colonoscopy, Colon Resection, EGD, Other (prostatectomy). No: Pacemaker Amputation: No Fractures: No - *Social History Educational Level: Attended High School Smoking Status: Current every day smoker Tobacco Type: cigarettes # Packs/Day (cigarettes): 1 Alcohol Intake: current Alcohol Intake Frequency:: a few times a week Substance Use Type: marijuana, opiates, painkillers Last Used Substance: unknown *Occupational Status:: retired, disabled Housing: house Household Members: none *Travel in the last 8 weeks: None - Psychiatric History Expresses thoughts of harming self/others: None Suicide Plan Description: No Plan Pschychiatric History:: Reports:: Anxiety Family Hx:: No significant family history Review of Systems - Review of Systems Review of systems:: pertinent systems reviewed and negative unless documented below - Constitutional Reports anorexia, Reports fever(s), Reports night sweats - Eyes Denies blind spots, Denies blurry vision, Denies bulging eyes - ENT Denies abnormal hearing, Denies poor balance - *Cardiovascular Denies chest pain, Denies excessive sweating, Denies irregular heart rhythm, Denies lightheadedness, Denies shortness of breath when lying down - *Respiratory Reports cough, Denies change in phlegm color, Denies shortness of breath with activity, Denies excessive phlegm production - *Gastrointestinal Reports abdominal pain, Reports belching, Denies coffee ground vomit, Denies constipation, Denies incontinent of stools, Denies black, tarry stools - *Genitourinary Denies difficulty urinating - *Musculoskeletal Reports back pain, Reports body aches, Reports neck pain, Denies abnormal walking, Denies joint swelling, Denies limited joint movement - Integumentary/Breasts Denies change in skin color - *Neurologic Denies abnormal walking, Denies behavioral changes, Denies unsteadiness - Endocrine Denies cold intolerance - Hematologic/Lymphatic Denies easy bleeding, Denies easy bruising Meds Home Medications Medication Instructions Recorded Confirmed Type Albuterol Sulfate [Albuterol HFA 2 puffs IH Q4HP PRN 05/16/18 01/21/19 History Inhaler] Allopurinol [Allopurinol 100mg 100 mg PO BID 05/16/18 01/21/19 History tablet] Aspirin [Aspirin 325mg Tab] 325 mg PO DAILY 05/16/18 01/21/19 History Buspirone HCl [Buspar 10mg 10 mg PO BID 05/16/18 01/21/19 History tablet] Colchicine [Colcrys 0.6mg tablet] 0.6 mg PO DAILY 05/16/18 01/21/19 History Duloxetine HCl [Cymbalta] 30 mg PO DAILY 05/16/18 01/21/19 History Metoprolol Succinate 50 mg PO DAILY 05/16/18 01/21/19 History Potassium Chloride 20 meq PO DAILY 05/16/18 01/21/19 History Quetiapine Fumarate 100 mg PO HS 05/16/18 01/21/19 History Simvastatin 40 mg PO HS 05/16/18 01/21/19 History raNITIdine HCl [Ranitidine HCl] 300 mg PO HSP PRN 05/16/18 01/21/19 History Allergies Allergy/AdvReac Type Severity Reaction Status Date / Time No Known Allergies Allergy Verified 04/30/18 11:22 Exam Vital signs and Labs for Last 24 Hours: Temp Pulse Resp BP Pulse Ox 98.1 F 96 H 16 123/72 93 L 01/22/19 07:42 01/22/19 07:42 01/22/19 07:42 01/22/19 07:42 01/22/19 07:42 Laboratory Results - last 24 hr 01/21/19 15:46: WBC 10.7, RBC 5.00, Hgb 16.4, Hct 48.9, MCV 97.9 H, MCH 32.8 H, MCHC 33.5, RDW 14.4, Plt Count 258, MPV 7.0 L, Neut % (Auto) 69.3, Lymph % (Auto) 19.9, [place] % (Auto) 7.7, Eos % (Auto) 2.2, Baso % (Auto) 0.8, Neut # (Auto) 7.4, Lymph # (Auto) 2.1, [place] # (Auto) 0.8, Eos # (Auto) 0.2, Baso # (Auto) 0.1 01/21/19 15:46: Sodium 136, Potassium 3.5, Chloride 98, Carbon Dioxide 32, Anion Gap 9.5, BUN 7, Creatinine 1.10, Estimated Creat Clear 75, Estimated GFR 68, Est GFR ( Amer) 82, Glucose 155 H, Calcium 9.3, Total Bilirubin 0.9, AST 22, ALT 29, Alkaline Phosphatase 141 H, Troponin I < 0.02, Total Protein 7.1, Albumin 3.5, Globulin 3.6 H, Albumin/Globulin Ratio 1.0 L, Lipase 2490 H 01/21/19 15:46: Plasma/Serum Alcohol 0 01/21/19 15:46: PT 10.1, INR 0.97, APTT 27.8 01/21/19 15:46: Phosphorus 3.5, Magnesium 1.5 01/21/19 16:00: Urine Color Yellow, Urine Appearance Clear, Urine pH 6.0, Ur Specific [place] 1.025, Urine Protein Negative, Urine Glucose (UA) Negative, Urine Ketones Negative, Urine Blood Negative, Urine Nitrate Negative, Urine Bilirubin 1+ A, Urine Urobilinogen 0.2, Ur Leukocyte Esterase Negative, Urine RBC Occasional, Ur Squamous Epith Cells Occasional, Urine Mucus 1+ 01/21/19 16:00: Urine Opiates Screen Negative, Urine Methadone Screen Negative, Ur Barbituates Screen Negative, Ur Phencyclidine Scrn Negative, Ur Amphetamines Screen Negative, U Benzodiazepines Scrn Negative, Urine Cocaine Screen Negative, U Marijuana (THC) Screen Positive H 01/22/19 06:25: Lipase 638 H I & O for Last 24 hours: Intake & Output 01/19/19 01/20/19 01/21/19 01/22/19 11:59 11:59 11:59 11:59 Intake Total 2437 / 2437 Output Total 900 / 900 Balance 1537 / 1537 Weight 155 lb Narrative: Patient is disheveled, appears older than his stated age. Oropharynx dry but clear. No JVD. No scleral icterus. Lungs have smoker's rhonchi bilaterally. Abdomen is soft, moderate tenderness in both lower quadrants, no rebound or guarding. Heart rate regular. Extremities without clubbing or cyanosis or edema. No rash. Neurologically intact with normal cranial nerves and ability to move all extremities. H&P: Result - Imaging and Cardiology CT scan - abdomen Status: final report Assessment and Plan (1) Polysubstance abuse Current visit: Yes Status: Acute Category: Medical Code(s): F19.10 - Other psychoactive substance abuse, uncomplicated Currently on withdrawal protocols. Drug screen positive for marijuana. Patient admits to street opiate use. (2) Acute pancreatitis Current visit: Yes Status: Acute Qualifiers: Pancreatitis type: alcohol induced Acute pancreatitis complication: no infection or necrosis Qualified Code(s): K85.20 - Alcohol induced acute pancreatitis without necrosis or infection Category: Medical Code(s): K85.90 - Acute pancreatitis without necrosis or infection, unspecified CT scan reviewed, seems to be of moderate episode compared to other episodes patient had, blood counts are normal, calcium normal. Vital signs of been unremarkable. (3) Alcoholism Current visit: No Status: Chronic Category: Medical Code(s): F10.20 - Alcohol dependence, uncomplicated Withdrawal protocols in place (4) COPD (chronic obstructive pulmonary disease) Problem details: Qualifies for home oxygen. This will be set up. Current visit: No Status: Chronic Qualifiers: COPD type: COPD with acute exacerbation Qualified Code(s): J44.1 - Chronic obstructive pulmonary disease with (acute) exacerbation Category: Medical Code(s): J44.9 - Chronic obstructive pulmonary disease, unspecified Watch in hospital. Nebs as needed (5) HTN (hypertension) Current visit: No Status: Chronic Qualifiers: Hypertension type: essential hypertension Qualified Code(s): I10 - Essential (primary) hypertension Category: Medical Code(s): I10 - Essential (primary) hypertension Reasonable blood pressure control (6) Renal insufficiency Problem details: Creatinine returned to normal Current visit: No Status: Chronic Category: Medical Code(s): N28.9 - Disorder of kidney and ureter, unspecified Watch creatinine tomorrow
[2019-01-23 05:49] LABS: Basophils % 0.7 % (0.1-2.0); Eosinophils # 0.4 K/mm3 (0.0-0.4); Eosinophils % 6.9 % (0.1-12.0); Hemoglobin 13.7 g/dL (14.1-18.0); Lymphocytes % 35.5 % (10-50); Mean Corpuscular HGB Conc 31.9 g/dL (31.8-35.4); Mean Corpuscular Volume 101.1 fl (80-94); Mean Platelet Volume 7.1 fl (7.4-10.4); Monocytes # 0.4 K/mm3 (0.1-1.0); Monocytes % 7.4 % (1.7-9.3); Neutrophils # 2.8 K/mm3 (1.8-7.8); Neutrophils % 49.5 % (37.0-80.0); Platelet Count 197 K/mm3 (142-424); Red Blood Count 4.25 M/mm3 (4.60-6.20); Red Cell Distribution Width 14.3 % (11.5-17.5); White Blood Count 5.7 K/mm3 (4.8-10.8)
[2019-01-23 06:09] LABS: Albumin Level 2.6 gm/dL (3.4-5.0); Albumin/Globulin Ratio 1.1 (1.1-1.8); Anion Gap 9.5 mEq/L (5-15); Bilirubin,Total 0.8 mg/dL (0.2-1.0); Globulin 2.4 gm/dl (1.3-3.2)
--- NOTE | 2019-01-23 08:45 | Progress Note ---
Internal Medicine - PN: Subj *Date: 01/23/19 *Time: 08:44 Interval history: Patient feels somewhat better, tolerated clears yesterday fairly well, notes that he feels hungry. Exam Vital signs and Labs for Last 24 Hours: Temp Pulse Resp BP Pulse Ox 98.1 F 73 17 156/66 H 98 01/23/19 08:00 01/23/19 08:00 01/23/19 08:00 01/23/19 08:00 01/23/19 08:00 Laboratory Results - last 24 hr 01/23/19 05:30: WBC 5.7 D, RBC 4.25 L, Hgb 13.7 L, Hct 43.0, MCV 101.1 H, MCH 32.3 H, MCHC 31.9, RDW 14.3, Plt Count 197, MPV 7.1 L, Neut % (Auto) 49.5, Lymph % (Auto) 35.5, [place] % (Auto) 7.4, Eos % (Auto) 6.9, Baso % (Auto) 0.7, Neut # (Auto) 2.8, Lymph # (Auto) 2.0, [place] # (Auto) 0.4, Eos # (Auto) 0.4, Baso # (Auto) 0.0 01/23/19 05:30: Sodium 138, Potassium 4.5 D, Chloride 103, Carbon Dioxide 30, Anion Gap 9.5, BUN 8, Creatinine 0.98, Estimated Creat Clear 75, Estimated GFR 77, Est GFR ( Amer) 93, Glucose 129 H, Calcium 8.0 L D, Total Bilirubin 0.8, AST 19, ALT 24, Alkaline Phosphatase 112, Total Protein 5.0 L D, Albumin 2.6 L, Globulin 2.4, Albumin/Globulin Ratio 1.1 I & O for Last 24 hours: Intake & Output 01/20/19 01/21/19 01/22/19 01/23/19 11:59 11:59 11:59 11:59 Intake Total 2677 / 2677 4400 / 4400 Output Total 900 / 900 Balance 1777 / 1777 4400 / 4400 Weight 155 lb 155 lb Narrative: Pleasant, talkative. Lungs have rhonchi but otherwise good air movement. Alert, no scleral icterus. Otherwise ENT exam clear. Heart rate regular. Extremities warm and well-perfused, no edema. Neurologically able to move all extremities. Abdomen soft, very minimal tenderness with vigorous epigastric palpation. Improved over yesterday. Assessment and Plan (1) Polysubstance abuse Current visit: Yes Status: Acute Category: Medical Code(s): F19.10 - Other psychoactive substance abuse, uncomplicated (2) Acute pancreatitis Current visit: Yes Status: Acute Qualifiers: Pancreatitis type: alcohol induced Acute pancreatitis complication: no infection or necrosis Qualified Code(s): K85.20 - Alcohol induced acute pancreatitis without necrosis or infection Category: Medical Code(s): K85.90 - Acute pancreatitis without necrosis or infection, unspecified (3) Alcoholism Current visit: No Status: Chronic Category: Medical Code(s): F10.20 - Alcohol dependence, uncomplicated (4) COPD (chronic obstructive pulmonary disease) Problem details: Qualifies for home oxygen. This will be set up. Current visit: No Status: Chronic Qualifiers: COPD type: COPD with acute exacerbation Qualified Code(s): J44.1 - Chronic obstructive pulmonary disease with (acute) exacerbation Category: Medical Code(s): J44.9 - Chronic obstructive pulmonary disease, unspecified (5) HTN (hypertension) Current visit: No Status: Chronic Qualifiers: Hypertension type: essential hypertension Qualified Code(s): I10 - Essential (primary) hypertension Category: Medical Code(s): I10 - Essential (primary) hypertension (6) Renal insufficiency Problem details: Creatinine returned to normal Current visit: No Status: Chronic Category: Medical Code(s): N28.9 - Disorder of kidney and ureter, unspecified - Assessment and plan all Dx Assessment and Plan for all problems:: Labs improving. Renal function improving. Pain seems to be improving. Advance diet to low-fat.
[2019-01-24 05:52] LABS: Basophils # 0.1 K/mm3 (0-0.2); Eosinophils # 0.3 K/mm3 (0.0-0.4); Eosinophils % 6.7 % (0.1-12.0); Hematocrit 47.9 % (42.0-52.0); Lymphocytes # 1.8 K/mm3 (0.7-4.5); Lymphocytes % 35.2 % (10-50); Mean Corpuscular HGB Conc 31.8 g/dL (31.8-35.4); Mean Platelet Volume 7.1 fl (7.4-10.4); Monocytes # 0.4 K/mm3 (0.1-1.0); Neutrophils # 2.5 K/mm3 (1.8-7.8); Neutrophils % 49.2 % (37.0-80.0); Platelet Count 214 K/mm3 (142-424); Red Blood Count 4.69 M/mm3 (4.60-6.20); Red Cell Distribution Width 14.3 % (11.5-17.5); White Blood Count 5.1 K/mm3 (4.8-10.8)
[2019-01-24 06:10] LABS: Hemoglobin 15.2 g/dL (14.1-18.0)
[2019-01-24 06:39] LABS: Albumin Level 3.2 gm/dL (3.4-5.0); Anion Gap 6.3 mEq/L (5-15); Bilirubin,Total 0.6 mg/dL (0.2-1.0); Calcium 8.8 mg/dL (8.5-10.1); Globulin 3.2 gm/dl (1.3-3.2); Total Protein,Serum 6.4 gm/dL (6.4-8.2)
--- NOTE | 2019-01-24 07:57 | Discharge Summary ---
General - General Admission date:: 01/21/19 Discharge date: 01/24/19 HPI HPI: 63-year-old known alcoholic with recurrent pancreatitis and history of colon surgery who presented to emergency department by ambulance with lower abdominal pain and vomiting. Reported that he had cut down his alcohol intake and most recent alcohol intake was over 24 hours ago. In the emergency department found to have elevated lipase, consistent with pancreatitis. Unable to keep liquids down he was noted to hospital for pain control, IV fluids and monitoring. Hospital Course Hospital Course: Patient was admitted. Did well. Progressed to a low-fat diet from n.p.o. status as pain improved. Labs also normalized. This morning he is doing well, eating well, minimal pain. Abdominal exam improved. Plan will be to discharge home. I reminded him once again of the deleterious effects of alcohol and marijuana on his physiology. We will schedule a follow-up for him next week Objective Vital signs: Temp Pulse Resp BP Pulse Ox 97.7 F 69 18 159/95 H 93 L 01/24/19 04:00 01/24/19 04:00 01/24/19 04:00 01/24/19 04:00 01/24/19 04:00 Narrative: Awake. Alert. Oriented x3. No JVD. Poor dental hygiene otherwise oral exam normal. Anterior lung faith are clear. Heart rate regular. Abdomen soft, very minimal tenderness with vigorous epigastric palpation. No edema or clubbing. Good distal perfusion. Neurologic intact. Results Labs on day of discharge: Labs from last 24 hours 01/24/19 01/24/19 05:27 05:27 WBC 5.1 RBC 4.69 Hgb 15.2 D Hct 47.9 MCV 102.0 H MCH 32.4 H MCHC 31.8 RDW 14.3 Plt Count 214 MPV 7.1 L Neut % (Auto) 49.2 Lymph % (Auto) 35.2 [place] % (Auto) 8.0 Eos % (Auto) 6.7 Baso % (Auto) 1.0 Neut # (Auto) 2.5 Lymph # (Auto) 1.8 [place] # (Auto) 0.4 Eos # (Auto) 0.3 Baso # (Auto) 0.1 Sodium 141 Potassium 4.3 Chloride 105 Carbon Dioxide 34 H Anion Gap 6.3 BUN 7 Creatinine 1.09 Estimated Creat Clear 69 Estimated GFR 68 Est GFR ( Amer) 83 Glucose 74 D Calcium 8.8 Total Bilirubin 0.6 AST 26 D ALT 29 Alkaline Phosphatase 133 H Total Protein 6.4 D Albumin 3.2 L D Globulin 3.2 Albumin/Globulin Ratio 1.0 L DS: Diagnosis - Discharge Diagnosis (1) Polysubstance abuse Status: Chronic (2) Acute pancreatitis Status: Acute (3) Alcoholism Status: Chronic (4) COPD (chronic obstructive pulmonary disease) Status: Chronic Problem details: Qualifies for home oxygen. This will be set up. (5) HTN (hypertension) Status: Chronic (6) Renal insufficiency Status: Chronic Problem details: Creatinine returned to normal Discharge Plan - Patient Discharge Instructions ACTIVITY: Continue current activity DIET: continue same diet Patient Instructions: Acute Pancreatitis, DI for Pancreatitis - Follow up Plan Follow up with: Shankar Raya MD [Primary Care Provider] - 01/28/19 Disposition: Home, Self-Long Term Medications: Home Medications Medication Instructions Recorded Confirmed Type Albuterol Sulfate [Albuterol HFA 2 puffs IH Q4HP PRN 05/16/18 01/21/19 History Inhaler] Allopurinol [Allopurinol 100mg 100 mg PO BID 05/16/18 01/21/19 History tablet] Aspirin [Aspirin 325mg Tab] 325 mg PO DAILY 05/16/18 01/21/19 History Buspirone HCl [Buspar 10mg 10 mg PO BID 05/16/18 01/21/19 History tablet] Colchicine [Colcrys 0.6mg tablet] 0.6 mg PO DAILY 05/16/18 01/21/19 History Duloxetine HCl [Cymbalta] 30 mg PO DAILY 05/16/18 01/21/19 History Metoprolol Succinate 50 mg PO DAILY 05/16/18 01/21/19 History Potassium Chloride 20 meq PO DAILY 05/16/18 01/21/19 History Quetiapine Fumarate 100 mg PO HS 05/16/18 01/21/19 History Simvastatin 40 mg PO HS 05/16/18 01/21/19 History raNITIdine HCl [Ranitidine HCl] 300 mg PO HSP PRN 05/16/18 01/21/19 History Prescriptions/Medication Reconciliation: Continued Simvastatin 40 mg PO HS raNITIdine HCl [Ranitidine HCl] 300 mg PO HSP PRN PRN Reason: GERD Potassium Chloride 20 meq PO DAILY Metoprolol Succinate 50 mg PO DAILY Colchicine [Colcrys 0.6mg tablet] 0.6 mg PO DAILY Allopurinol [Allopurinol 100mg tablet] 100 mg PO BID Albuterol Sulfate [Albuterol HFA Inhaler] 2 puffs IH Q4HP PRN PRN Reason: SOA/WHEEZING Quetiapine Fumarate 100 mg PO HS Duloxetine HCl [Cymbalta] 30 mg PO DAILY Buspirone HCl [Buspar 10mg tablet] 10 mg PO BID Aspirin [Aspirin 325mg Tab] 325 mg PO DAILY - Problem Reconciliation Problems Reviewed?: Yes
--- NOTE | 2019-01-24 09:47 | Electrocardiograph Report ---
APPROVED REPORT Exam: Resting ECG HR:98 bpm ECG Measurements Heart Rate 98 AXES FL 212 P 74 QRSd 78 QRS 74 QT 330 T79 QTc 421 <Conclusion> Sinus rhythm with 1st degree AV block Late R wave progression Abnormal ECG Electronically signed by : Shankar Raya, 01/24/2019 09:47:36
== END 2019-01-24 09:06 | disposition home or self-care (01) | DRG 439 ==
LOC: ER 15:45 → 2ND 15:45 → OBSVTOIN 19:45 → 2ND 21:34
PROVIDERS: ADMIT Internal Medicine Adolescent Medicine; ATTEND Internal Medicine Adolescent Medicine
CPT/HCPCS: 36415; 74177; 80053; 80305; 81001; 83690; 83735; 84100; 84484; 85025; 85610; 85730; 93005; 96374; 96375; 99284; J2405; Q9967

== ENCOUNTER → 2019-02-01 15:50 | Outpatient (CLI) | payer MEDICARE, MEDICAID, SELFPAY ==
[2019-02-01 19:09] LABS: Alanine Aminotransferase 34 U/L (12-78); Albumin Level 4.7 gm/dL (3.4-5.0); Albumin/Globulin Ratio 1.2 (1.1-1.8); Alkaline Phosphatase 147 U/L (46-116); Anion Gap 17.1 mEq/L (5-15); Aspartate Amino Transferase 28 U/L (15-37); Bilirubin,Total 0.6 mg/dL (0.2-1.0); Blood Urea Nitrogen 9 mg/dL (7-18); Calcium 10.5 mg/dL (8.5-10.1); Carbon Dioxide 29 mmol/L (21.0-32.0); Chloride 96 mmol/L (98-107); Creatinine,Serum 1.01 mg/dL (0.70-1.30); Estimated Glomerular Filt Rate 75 ml/min (>60); GFR (African American) 90 ML/MIN (>60); Glucose 117 mg/dL (74-106); Lipase 243 u/L (73-393); Potassium 5.1 mmoL/L (3.5-5.1); Sodium 137 mmol/L (136-145); Total Protein,Serum 8.7 gm/dL (6.4-8.2)
[2019-02-01 19:15] LABS: Ethyl Alcohol 0 mg/dL (0-99)
== END ==
PROVIDERS: Visit Provider Internal Medicine Adolescent Medicine
DX: K86.0 Alcohol-induced chronic pancreatitis (principal)
CPT/HCPCS: 36415; 80053; 83690

== ENCOUNTER → 2019-11-04 12:15 | Outpatient (CLI) | payer MEDICARE, MEDICAID, SELFPAY ==
[2019-11-04 12:28] LABS: Basophils % 0.6 % (0.1-2.0); Eosinophils # 0.2 K/mm3 (0.0-0.4); Eosinophils % 2.4 % (0.1-12.0); Hematocrit 39.7 % (42.0-52.0); Hemoglobin 13.3 g/dL (14.1-18.0); Lymphocytes # 1.4 K/mm3 (0.7-4.5); Lymphocytes % 19.8 % (10-50); Mean Corpuscular HGB Conc 33.5 g/dL (31.8-35.4); Mean Corpuscular Hemoglobin 32.6 pg (27.0-31.2); Mean Corpuscular Volume 97.5 fl (80-94); Mean Platelet Volume 8.7 fl (7.4-10.4); Monocytes # 0.6 K/mm3 (0.1-1.0); Neutrophils # 4.9 K/mm3 (1.8-7.8); Neutrophils % 69.2 % (37.0-80.0); Platelet Count 188 K/mm3 (142-424); Red Blood Count 4.07 M/mm3 (4.60-6.20); Red Cell Distribution Width 14.8 % (11.5-17.5); White Blood Count 7.1 K/mm3 (4.8-10.8)
[2019-11-04 17:52] LABS: Chloride 97 mmol/L (98-107); Sodium 133 mmol/L (136-145)
[2019-11-04 17:53] LABS: Potassium 3.9 mmoL/L (3.5-5.1)
[2019-11-04 17:55] LABS: Alanine Aminotransferase 10 U/L (12-78); Alkaline Phosphatase 147 U/L (38-126); Anion Gap 10.9 mEq/L (5-15); Aspartate Amino Transferase 20 U/L (17-59); Bilirubin,Total 0.7 mg/dl (0.2-1.3); Blood Urea Nitrogen 11 mg/dl (9-20); Carbon Dioxide 29 mmol/L (22.0-30.0); Estimated Glomerular Filt Rate 75 ml/min (>60); GFR (African American) 91 ML/MIN (>60)
[2019-11-04 17:56] LABS: Albumin Level 3.7 g/dl (3.5-5.0); Albumin/Globulin Ratio 1.5 (1.1-1.8); Chol/HDL Ratio 2.1 (1-3.5); Cholesterol 83 mg/dl (140-200); Globulin 2.5 g/dL (1.3-3.2); Glucose 185 mg/dl (74-100); HDL Cholesterol 40 mg/dl (40-60); Total Protein,Serum 6.2 g/dl (6.3-8.2); Triglycerides 211 mg/dl (30-150); VLDL Cholesterol 42 mg/dL (0-40)
[2019-11-04 18:39] LABS: Direct LDL Cholesterol < 30.00 mg/dL (100-129)
== END ==
PROVIDERS: Visit Provider Internal Medicine Adolescent Medicine
DX: J43.1 Panlobular emphysema (principal); Z79.899 Other long term (current) drug therapy
CPT/HCPCS: 36415; 80053; 80061; 85025

== ENCOUNTER → 2019-11-28 13:53 | Outpatient (CLI) | payer MEDICARE, MEDICAID, SELFPAY ==
[2019-11-28 16:29] LABS: Chloride 94 mmol/L (98-107); Sodium 132 mmol/L (136-145)
[2019-11-28 16:30] LABS: Potassium 3.9 mmoL/L (3.5-5.1)
[2019-11-28 16:32] LABS: Blood Urea Nitrogen 16 mg/dl (9-20); Estimated Glomerular Filt Rate 61 ml/min (>60); GFR (African American) 74 ML/MIN (>60)
[2019-11-28 16:33] LABS: Anion Gap 8.9 mEq/L (5-15); Calcium 9.2 mg/dl (8.4-10.2); Carbon Dioxide 33 mmol/L (22.0-30.0); Glucose 177 mg/dl (74-100); Hemoglobin A1C 6.8 % (4.0-6.0)
== END ==
PROVIDERS: Visit Provider Internal Medicine Adolescent Medicine
DX: R73.09 Other abnormal glucose (principal)
CPT/HCPCS: 36415; 80048; 83036

== ENCOUNTER → 2020-04-12 13:25 | Outpatient (CLI) | payer MEDICARE, OTHER, SELFPAY ==
[2020-04-12 15:46] LABS: Chloride 94 mmol/L (98-107); Potassium 5.2 mmoL/L (3.5-5.1); Sodium 132 mmol/L (136-145)
[2020-04-12 15:49] LABS: Anion Gap 14.2 mEq/L (5-15); Blood Urea Nitrogen 15 mg/dl (9-20); Calcium 9.9 mg/dl (8.4-10.2); Carbon Dioxide 29 mmol/L (22.0-30.0); Estimated Glomerular Filt Rate 67 ml/min (>60); GFR (African American) 82 ML/MIN (>60); Glucose 338 mg/dl (74-100)
[2020-04-12 16:19] LABS: Hemoglobin A1C 7.7 % (4.0-6.0)
[2020-04-12 20:34] LABS: Basophils # 0.1 K/mm3 (0-0.2); Basophils % 0.9 % (0.1-2.0); Eosinophils # 0.3 K/mm3 (0.0-0.4); Eosinophils % 3.2 % (0.1-12.0); Hematocrit 51.3 % (42.0-52.0); Hemoglobin 16.7 g/dL (14.1-18.0); Lymphocytes # 2.4 K/mm3 (0.7-4.5); Lymphocytes % 28.4 % (10-50); Mean Corpuscular HGB Conc 32.7 g/dL (31.8-35.4); Mean Corpuscular Hemoglobin 33.1 pg (27.0-31.2); Mean Corpuscular Volume 101.2 fl (80-94); Monocytes # 0.5 K/mm3 (0.1-1.0); Monocytes % 5.6 % (1.7-9.3); Neutrophils # 5.3 K/mm3 (1.8-7.8); Neutrophils % 61.9 % (37.0-80.0); Platelet Count 305 K/mm3 (142-424); Red Blood Count 5.06 M/mm3 (4.60-6.20); Red Cell Distribution Width 14.4 % (11.5-17.5); White Blood Count 8.6 K/mm3 (4.8-10.8)
[2020-04-12 20:46] LABS: Alanine Aminotransferase 48 U/L (12-78); Albumin Level 4.7 g/dl (3.5-5.0); Albumin/Globulin Ratio 1.6 (1.1-1.8); Alkaline Phosphatase 113 U/L (38-126); Aspartate Amino Transferase 32 U/L (17-59); Bilirubin,Total 0.5 mg/dl (0.2-1.3); Globulin 2.9 g/dL (1.3-3.2); Total Protein,Serum 7.6 g/dl (6.3-8.2)
[2020-04-12 22:54] LABS: Thyroid Stimulating Hormone 3.18 uIU/mL (0.465-4.68)
[2020-04-12 22:57] LABS: 25-OH Vitamin D, Total 23.9 ng/mL (30-100)
[2020-04-12 23:27] LABS: Vitamin B12 597 pg/mL (239-931)
== END ==
PROVIDERS: Visit Provider Internal Medicine Adolescent Medicine
DX: J43.1 Panlobular emphysema (principal); R25.1 Tremor, unspecified; R73.9 Hyperglycemia, unspecified; E55.9 Vitamin D deficiency, unspecified
CPT/HCPCS: 36415; 80053; 82306; 82607; 83036; 84443; 85025

== ENCOUNTER → 2020-06-28 17:08 | Outpatient (CLI) | payer MEDICARE, OTHER, SELFPAY ==
[2020-06-28 17:25] LABS: Basophils # 0.1 K/mm3 (0-0.2); Basophils % 0.8 % (0.1-2.0); Eosinophils # 0.2 K/mm3 (0.0-0.4); Eosinophils % 2.4 % (0.1-12.0); Hematocrit 41.2 % (42.0-52.0); Hemoglobin 15.4 g/dL (14.1-18.0); Lymphocytes # 2.1 K/mm3 (0.7-4.5); Lymphocytes % 31.2 % (10-50); Mean Corpuscular HGB Conc 37.4 g/dL (31.8-35.4); Mean Corpuscular Hemoglobin 36.8 pg (27.0-31.2); Mean Corpuscular Volume 98.2 fl (80-94); Mean Platelet Volume 8.6 fl (7.4-10.4); Monocytes # 0.5 K/mm3 (0.1-1.0); Monocytes % 6.9 % (1.7-9.3); Neutrophils # 3.9 K/mm3 (1.8-7.8); Neutrophils % 58.6 % (37.0-80.0); Platelet Count 174 K/mm3 (142-424); Red Cell Distribution Width 13.4 % (11.5-17.5); White Blood Count 6.6 K/mm3 (4.8-10.8)
[2020-06-28 18:07] LABS: Alanine Aminotransferase 28 U/L (12-78); Albumin Level 4.8 g/dl (3.5-5.0); Alkaline Phosphatase 102 U/L (38-126); Anion Gap 14.8 mEq/L (5-15); Aspartate Amino Transferase 27 U/L (17-59); Bilirubin,Total 0.4 mg/dl (0.2-1.3); Blood Urea Nitrogen 20 mg/dl (9-20); Calcium 10.7 mg/dl (8.4-10.2); Carbon Dioxide 34 mmol/L (22.0-30.0); Chloride 88 mmol/L (98-107); Chol/HDL Ratio 1.8 (1-3.5); Cholesterol 119 mg/dl (140-200); Estimated Glomerular Filt Rate 75 ml/min (>60); GFR (African American) 91 ML/MIN (>60); Globulin 2.4 g/dL (1.3-3.2); HDL Cholesterol 65 mg/dl (40-60); Potassium 4.8 mmoL/L (3.5-5.1); Sodium 132 mmol/L (136-145); Total Protein,Serum 7.2 g/dl (6.3-8.2); Triglycerides 270 mg/dl (30-150); VLDL Cholesterol 54 mg/dL (0-40)
[2020-06-28 18:09] LABS: Glucose 546 mg/dl (74-100)
[2020-06-28 18:14] LABS: Hemoglobin A1C 10.6 % (4.0-6.0)
[2020-06-28 18:18] LABS: Direct LDL Cholesterol < 30.00 mg/dL (100-129)
[2020-06-28 18:37] LABS: Prostate Specific Ag, Diagnost 0.717 ng/ml (0.0-4.0)
== END ==
PROVIDERS: Visit Provider Internal Medicine Adolescent Medicine
DX: E11.9 Type 2 diabetes mellitus without complications (principal); J43.1 Panlobular emphysema; Z85.46 Personal history of malignant neoplasm of prostate
CPT/HCPCS: 36415; 80053; 80061; 83036; 84153; 85025

== ENCOUNTER → 2020-10-05 15:05 | Outpatient (CLI) | payer MEDICARE, OTHER, SELFPAY ==
[2020-10-05 15:29] LABS: Hemoglobin A1C 5.8 % (4.0-6.0)
[2020-10-05 16:21] LABS: Chloride 93 mmol/L (98-107); Sodium 134 mmol/L (136-145)
[2020-10-05 16:22] LABS: Potassium 4.9 mmoL/L (3.5-5.1)
[2020-10-05 16:24] LABS: Alanine Aminotransferase 119 U/L (12-78); Albumin Level 4.1 g/dl (3.5-5.0); Albumin/Globulin Ratio 1.6 (1.1-1.8); Alkaline Phosphatase 187 U/L (38-126); Anion Gap 21.9 mEq/L (5-15); Aspartate Amino Transferase 125 U/L (17-59); Blood Urea Nitrogen 65 mg/dl (9-20); Carbon Dioxide 24 mmol/L (22.0-30.0); Estimated Glomerular Filt Rate 6 ml/min (>60); GFR (African American) 7 ML/MIN (>60); Globulin 2.5 g/dL (1.3-3.2); Total Protein,Serum 6.6 g/dl (6.3-8.2)
[2020-10-05 16:25] LABS: Calcium 8.2 mg/dl (8.4-10.2); Glucose 88 mg/dl (74-100)
[2020-10-05 16:46] LABS: Uric Acid 9.4 mg/dl (3.5-8.5)
== END ==
PROVIDERS: Visit Provider Internal Medicine Adolescent Medicine
DX: E11.9 Type 2 diabetes mellitus without complications (principal)
CPT/HCPCS: 36415; 80053; 83036; 84550

== ENCOUNTER 2020-10-06 11:10 | Inpatient (IN) | payer MEDICARE, OTHER, SELFPAY ==
[2020-10-06] VITALS (18 sets, daily range): BP systolic 124–176; BP diastolic 69–100; PULSE 73–124; RESP 14–19; TEMP 36.8; O2SAT 91–99; BMI 23.8
--- NOTE | 2020-10-06 11:17 | HMH.EDGENADL ---
ED Disposition Clinical Impression: NAPOLEON (acute kidney injury), Chronic alcohol abuse Disposition: Home, Self-Care Condition on Discharge: Good Referrals: Alphonso Auguste MD [Primary Care Provider] - Time of Disposition: 17:17 - Critical Care Critical Care Time: Yes Attestation: On , the high probability of a clinically significant, sudden or life threatening deterioration of the following system(s) required my full and direct attention, intervention and personal management. The time I documented below is in addition to time spent performing reported procedures but includes the following listed in this critical care notation. Total Critical Care Time: 35 Vital system(s) involved:: Renal Failure My critical care processes included: Assessment & monitoring of V/S, Initial and Re-exams, Data Review/Interpretation, Coordinating Care, Medication Orders and management, Documentation Medical Decision Making - Medical Records Medical records reviewed: Yes: I reviewed the patient's medical records. - Steven Inquiry Pt receiving controlled substance: No Vital Signs: 10/06/20 11:11 10/06/20 11:30 10/06/20 12:00 Temperature 98.3 F Temperature Source Oral Pulse Rate 106 H 100 H Pulse Rate [Radial] 124 H Respiratory Rate 16 16 16 Blood Pressure 131/84 148/85 H Blood Pressure [Right Radial Artery] 128/86 Blood Pressure Mean 96 106 Blood Pressure Mean [Right Radial Artery] 100 Blood Pressure Position [Right Radial Artery] Sitting 02 Sat by Pulse Oximetry 98 98 99 Oxygen Delivery Method Room Air 10/06/20 12:30 10/06/20 13:00 10/06/20 13:56 Temperature Temperature Source Pulse Rate 98 H 99 H 98 H Pulse Rate [Radial] Respiratory Rate 16 14 16 Blood Pressure 139/93 H 149/100 H 136/78 Blood Pressure [Right Radial Artery] Blood Pressure Mean 107 116 106 Blood Pressure Mean [Right Radial Artery] Blood Pressure Position [Right Radial Artery] 02 Sat by Pulse Oximetry 99 91 L 98 Oxygen Delivery Method Room Air 10/06/20 14:30 10/06/20 15:00 10/06/20 15:30 Temperature Temperature Source Pulse Rate 108 H 109 H 104 H Pulse Rate [Radial] Respiratory Rate 16 16 16 Blood Pressure 149/90 H 124/79 125/69 Blood Pressure [Right Radial Artery] Blood Pressure Mean 109 94 87 Blood Pressure Mean [Right Radial Artery] Blood Pressure Position [Right Radial Artery] 02 Sat by Pulse Oximetry 96 96 96 Oxygen Delivery Method 05/08/21 16:00 10/06/20 16:31 Temperature Temperature Source Pulse Rate 108 H 108 H Pulse Rate [Radial] Respiratory Rate 16 16 Blood Pressure 128/88 148/91 H Blood Pressure [Right Radial Artery] Blood Pressure Mean 99 110 Blood Pressure Mean [Right Radial Artery] Blood Pressure Position [Right Radial Artery] 02 Sat by Pulse Oximetry 97 97 Oxygen Delivery Method - Lab Data Lab results reviewed: Yes: I reviewed the patient's lab results. Lab Results 10/06/20 11:25: WBC 6.6, RBC 3.75 L, Hgb 12.0 L, Hct 38.4 L, MCV 102.5 H, MCH 31.9 H, MCHC 31.2 L, RDW 14.7, Plt Count 168, MPV 8.7, Neut % (Auto) 76.2, Lymph % (Auto) 10.9, [place] % (Auto) 8.8, Eos % (Auto) 3.2, Baso % (Auto) 0.7, Neut # (Auto) 5.0, Lymph # (Auto) 0.7, [place] # (Auto) 0.6, Eos # (Auto) 0.2, Baso # (Auto) 0.1 10/06/20 11:25: Sodium 132 L, Potassium 4.5, Chloride 94 L, Carbon Dioxide 24, Anion Gap 18.5 H, BUN 66 H, Creatinine 7.20 H, Estimated Creat Clear 10, Estimated GFR 8 L*, Est GFR ( Amer) 9 L* D, Glucose 230 H D, Calcium 7.5 L, Total Bilirubin 1.3, AST 87 H D, ALT 100 H, Alkaline Phosphatase 180 H, Total Protein 6.9, Albumin 4.3, Globulin 2.6, Albumin/Globulin Ratio 1.7, Lipase 381 H 10/06/20 11:25: Lactate 1.2 10/06/20 15:36: Sodium 130 L, Potassium 4.2, Chloride 99, Carbon Dioxide 26, Anion Gap 9.2, BUN 67 H, Creatinine 6.40 H, Estimated Creat Clear 12, Estimated GFR 9 L*, Est GFR ( Amer) 11 L* D, Glucose 252 H, Calcium 6.9 L Result diagrams: 10/06/20 11:25
[2020-10-06 11:38] LABS: Basophils # 0.1 K/mm3 (0-0.2); Basophils % 0.7 % (0.1-2.0); Eosinophils # 0.2 K/mm3 (0.0-0.4); Eosinophils % 3.2 % (0.1-12.0); Hematocrit 38.4 % (42.0-52.0); Lymphocytes # 0.7 K/mm3 (0.7-4.5); Lymphocytes % 10.9 % (10-50); Mean Corpuscular HGB Conc 31.2 g/dL (31.8-35.4); Mean Corpuscular Hemoglobin 31.9 pg (27.0-31.2); Mean Corpuscular Volume 102.5 fl (80-94); Mean Platelet Volume 8.7 fl (7.4-10.4); Monocytes # 0.6 K/mm3 (0.1-1.0); Monocytes % 8.8 % (1.7-9.3); Neutrophils % 76.2 % (37.0-80.0); Platelet Count 168 K/mm3 (142-424); Red Blood Count 3.75 M/mm3 (4.60-6.20); Red Cell Distribution Width 14.7 % (11.5-17.5); White Blood Count 6.6 K/mm3 (4.8-10.8)
[2020-10-06 11:43] LABS: Chloride 94 mmol/L (98-107); Potassium 4.5 mmoL/L (3.5-5.1); Sodium 132 mmol/L (136-145)
[2020-10-06 11:45] LABS: Alanine Aminotransferase 100 U/L (12-78); Blood Urea Nitrogen 66 mg/dl (9-20); Creatinine Clearance Estimated 10 mL/min (50-200); Estimated Glomerular Filt Rate 8 ml/min (>60); GFR (African American) 9 ML/MIN (>60); Lactic Acid 1.2 mmol/L (0.7-2.1)
[2020-10-06 11:46] LABS: Albumin Level 4.3 g/dl (3.5-5.0); Albumin/Globulin Ratio 1.7 (1.1-1.8); Alkaline Phosphatase 180 U/L (38-126); Anion Gap 18.5 mEq/L (5-15); Aspartate Amino Transferase 87 U/L (17-59); Bilirubin,Total 1.3 mg/dl (0.2-1.3); Calcium 7.5 mg/dl (8.4-10.2); Carbon Dioxide 24 mmol/L (22.0-30.0); Globulin 2.6 g/dL (1.3-3.2); Glucose 230 mg/dl (74-100); Lipase 381 U/L (23-300); Total Protein,Serum 6.9 g/dl (6.3-8.2)
--- NOTE | 2020-10-06 11:47 | ECG_ITS ---
APPROVED REPORT Exam: Resting ECG HR:101 bpm ECG Measurements Heart Rate 101 AXES HI 204 P 72 QRSd 68 QRS 77 QT 316 T 82 QTc 409 Conclusion Sinus tachycardia Septal infarct, age undetermined Abnormal ECG Electronically signed by : Shankar Raya, 10/07/2020 20:29:32
--- NOTE | 2020-10-06 12:13 | PC.NURSE ---
placed call to [facility] for pt transfer. paging Dr Last.
--- NOTE | 2020-10-06 12:19 | PC.NURSE ---
Dr Dickson speaking with Dr Last at [facility].
[2020-10-06 15:58] LABS: Anion Gap 9.2 mEq/L (5-15); Blood Urea Nitrogen 67 mg/dl (9-20); Carbon Dioxide 26 mmol/L (22.0-30.0); Chloride 99 mmol/L (98-107); Creatinine Clearance Estimated 12 mL/min (50-200); Estimated Glomerular Filt Rate 9 ml/min (>60); GFR (African American) 11 ML/MIN (>60); Glucose 252 mg/dl (74-100); Potassium 4.2 mmoL/L (3.5-5.1); Sodium 130 mmol/L (136-145)
[2020-10-06 16:01] LABS: Calcium 6.9 mg/dl (8.4-10.2)
[2020-10-06 17:39] LABS: Adenovirus,PCR Not Detected (NotDetected); Bordetella Pertussis Not Detected (NotDetected); Chlamydophila Pneumoniae, PCR Not Detected (NotDetected); Coronavirus 19, PCR Not Detected (NotDetected); Coronavirus 229E Not Detected (NotDetected); Coronavirus NL63 Not Detected (NotDetected); Coronavirus OC43 Not Detected (NotDetected); Coronovirus HKU1,PCR Not Detected (NotDetected); Human Metapneumovirus Not Detected (NotDetected); Influenza A, PCR Not Detected (NotDetected); Influenza AH1, 2009 Not Detected (NotDetected); Influenza AH1, PCR Not Detected (NotDetected); Influenza AH3,PCR Not Detected (NotDetected); Influenza B, PCR Not Detected (NotDetected); Mycoplasma Pneumoniae, PCR Not Detected (NotDetected); Parainfluenza 1, PCR Not Detected (NotDetected); Parainfluenza 2, PCR Not Detected (NotDetected); Parainfluenza 3, PCR Not Detected (NotDetected); Parainfluenza 4, PCR Not Detected (NotDetected); Respiratory Syncytial Virus Not Detected (NotDetected); Rhinovirus/Enterovirus Not Detected (NotDetected)
[2020-10-06 17:43] LABS: Phosphorous 4.1 mg/dl (2.5-4.5)
[2020-10-06 17:44] LABS: Magnesium 0.8 mg/dl (1.6-2.3)
[2020-10-06 17:48] LABS: Activated Partial Thrombo Time 26.7 seconds (22.8-30.6); INR 1.06 (0.9-1.1); Prothrombin Time 12.5 seconds (10.1-12.5)
[2020-10-06 18:40] LABS: Vitamin B12 610 pg/mL (239-931)
[2020-10-06 18:40] LABS: Microscopic, Urine URINE MICROSCOPIC (MICROSCOPIC)
[2020-10-06 18:41] LABS: Appearance,Urine CLEAR (Clear); Bilirubin,Urine Negative (Negative); Blood, Urine TRACE-I (Negative); Color,Urine YELLOW (Yellow); Glucose,Urine (UA) 2+ (Negative); Ketones,Urine Negative (Negative); Leukocyte Esterase,Urine Negative (Negative); Nitrate,Urine Negative (Negative); PH,Urine 5.5 (5.0-8.5); Protein,Urine Negative (Negative); Urobilinogen,Urine 0.2 EU/dl (0.2)
[2020-10-06 18:51] LABS: Bacteria,Urine Trace /lpf; RBC,Urine Occasional #/hpf (0-3)
--- NOTE | 2020-10-06 19:54 | PC.NURSE ---
pt arrived to floor via w/c from ed w/staff at 194
[2020-10-06 21:31] LABS: POC Glucose,Bedside 306 (70-110)
[2020-10-07] VITALS (9 sets, daily range): BP systolic 134–159; BP diastolic 72–87; PULSE 53–120; RESP 18–22; TEMP 36.7–37.5; O2SAT 97–100
--- NOTE | 2020-10-07 04:52 | PC.NURSE ---
Pt is A&Ox4 and has ambulated to the BR a few times this shift and tolerated well independently. Sinus tach noted on tele. Scattered wheezes and diminished bases per lung auscultation. Pt has a dry cough, reports this is his baseline d/t COPD, smoking, and asthma. Pt instructed on need for sputum sample if cough is productive. ABD is soft, non-tender to palpation, and active bowel per auscultation. Pt has had a good appetite this shift, given several sugar free snack d/t diabetes. Good oral intake and receiving IVF. Pt ambulated around on the floor this am and tolerated well.
[2020-10-07 06:24] LABS: POC Glucose,Bedside 107 (70-110)
[2020-10-07 07:17] LABS: Basophils % 0.8 % (0.1-2.0); Eosinophils # 0.2 K/mm3 (0.0-0.4); Eosinophils % 3.8 % (0.1-12.0); Hematocrit 29.1 % (42.0-52.0); Lymphocytes % 23.3 % (10-50); Mean Corpuscular HGB Conc 33.4 g/dL (31.8-35.4); Mean Corpuscular Hemoglobin 32.5 pg (27.0-31.2); Mean Corpuscular Volume 97.3 fl (80-94); Mean Platelet Volume 8.7 fl (7.4-10.4); Monocytes # 0.6 K/mm3 (0.1-1.0); Monocytes % 15.2 % (1.7-9.3); Neutrophils # 2.4 K/mm3 (1.8-7.8); Neutrophils % 56.8 % (37.0-80.0); Platelet Count 158 K/mm3 (142-424); Red Blood Count 2.99 M/mm3 (4.60-6.20); Red Cell Distribution Width 15.2 % (11.5-17.5); White Blood Count 4.2 K/mm3 (4.8-10.8)
[2020-10-07 07:24] LABS: Anion Gap 6.7 mEq/L (5-15); Blood Urea Nitrogen 53 mg/dl (9-20); Carbon Dioxide 29 mmol/L (22.0-30.0); Chloride 101 mmol/L (98-107); Creatinine Clearance Estimated 18 mL/min (50-200); Estimated Glomerular Filt Rate 15 ml/min (>60); GFR (African American) 18 ML/MIN (>60); Glucose 157 mg/dl (74-100); Potassium 3.7 mmoL/L (3.5-5.1); Sodium 133 mmol/L (136-145)
[2020-10-07 07:30] LABS: Hemoglobin 9.7 g/dL (14.1-18.0)
--- NOTE | 2020-10-07 07:42 | HMH.HP ---
*Admission Date: 10/06/20 *Chief complaint: renal failure, weakness, abnormal outpatient labs *History of present illness: 65-year-old gentleman with remote history of alcohol dependence, recurrent pancreatitis, COPD, and type 2 diabetes who was referred to the ER yesterday after obtaining outpatient labs on Thursday. Labs concerning for acute renal failure with creatinine of 8.8 (baseline 1.0 in June), mild transaminitis, and macrocytosis. On arrival to the ER, patient complained mainly of fatigue and anxiety. Denied significant recent alcohol use, states he only had a few beers the day before arrival. Reports he had also been having some low blood sugars (A1c on Thursday 5.8 significantly improved from previous in June of greater than 10.) Had not been eating well per his report. Was afebrile but noted to be mildly tachycardic. Repeat labs in the ER showed improvement in creatinine to mid 6 range after fluid bolus, elevated lipase, and anemia after fluid resuscitation. Patient admitted for further management of gross metabolic abnormalities and acute kidney failure. Findings on admission concerning for pancreatitis, acute renal failure, alcohol withdrawal, macrocytic anemia, and protein calorie malnutrition. On assessment this morning he states he is feeling a little better but still quite tired. Continues to deny any alcohol consumption aside from a few beers prior to coming to the hospital. Of note, discussion with his daughter states that he admitted to the ER drinking vodka (his beverage of choice). He has tolerated oxazepam without significant obtundation or sleepiness. Improvement in urine output, no diarrhea or vomiting. Also of note, patient is reportedly illiterate, cannot read or write. This complicates his care and communication of medical condition/treatment. [facility] History I have reviewed the patient's past medical history: Yes Medical History: Reports:: Anxiety, Asthma, Cancer (Colon They said they got it all. ), Chronic Obstructive Pulmonary Disease (COPD), Diabetes Mellitus Type 2, Hyperlipidemia, Hypertension, Lung Disease (copd, asthma) Denies:: Diabetes Mellitus Type 1, Internal Pacemaker, MRSA, Seizures *Have you ever received a pneumonia vaccine?: No *Have you received a flu vaccine this season?: No Other Medical History: Reports: Arthritis, Hypothyroidism, Other (gout). Denies: Blood Transfusion Reaction Laterality Cases: Bilateral: Other Other Surgeries: Yes: Cancer Surgery, Colonoscopy, Colon Resection, Colostomy, EGD, Other (prostatectomy). No: Pacemaker Amputation: No Fractures: No - *Social History Last grade of school completed: 7th or 8th Smoking Status: Current every day smoker Tobacco Type: cigarettes # Packs/Day (cigarettes): 1 Alcohol Intake: current Alcohol Intake Frequency:: 3 or more drinks per day Substance Use Type: marijuana Last Used Substance: days (ago) *Occupational Status:: disabled Housing: house Household Members: none *Travel in the last 8 weeks: None - Psychiatric History Pschychiatric History:: Reports:: Anxiety Family Hx:: No significant family history Review of Systems - Review of Systems Review of systems:: pertinent systems reviewed and negative unless documented below (14 point review of systems performed, pertinent positives and negatives as per HPI) Meds Home Medications Medication Instructions Recorded Confirmed Type Albuterol Sulfate [Ventolin HFA 2 puffs IH Q6HP PRN 05/16/18 10/07/20 History Inhaler] Aspirin [Aspirin 325mg Tab] 325 mg PO DAILY 05/16/18 10/06/20 History Colchicine [Colcrys 0.6mg tablet] 0.6 mg PO DAILY 05/16/18 10/06/20 History Duloxetine HCl [Cymbalta] 30 mg PO DAILY 05/16/18 10/06/20 History Potassium Chloride 20 meq PO DAILY 05/16/18 10/06/20 History Simvastatin 40 mg PO HS 05/16/18 10/06/20 History allopurinoL [Allopurinol 100mg 100 mg PO BID 05/16/18 10/06/20 History tablet] Empagliflozin [Jardiance] 25 mg PO DAILY 10/06/20
[2020-10-07 07:45] LABS: Calcium 6.8 mg/dl (8.4-10.2)
--- NOTE | 2020-10-07 09:45 | HMH.PHAVTE ---
[facility] Pharmacy VTE Monitoring - Patient Demographics Admission date: 10/07/20 Report Date: 10/07/20 Time: 09:45 Allergies/Adverse Reactions: Patient Allergies No Known Allergies Allergy (Verified 04/30/18 11:22) Height: 1.73 m Weight: 70.959 kg Patient Problems: Current Active Problems N[place]OLEON (acute kidney injury) (Acute) Chronic alcohol abuse (Acute) - VTE Risk Labs: VTE Related Lab Results Hgb 9.7 g/dL (14.1-18.0) L D 10/07/20 07:00 Hct 29.1 % (42.0-52.0) L 10/07/20 07:00 Plt Count 158 K/mm3 (142-424) 10/07/20 07:00 PT 12.5 seconds (10.1-12.5) 10/06/20 15:36 INR 1.06 (0.9-1.1) 10/06/20 15:36 APTT 26.7 seconds (22.8-30.6) 10/06/20 15:36 BUN 53 mg/dl (9-20) H 10/07/20 07:00 Creatinine 4.00 mg/dl (0.66-1.25) H D 10/07/20 07:00 Estimated Creat Clear 18 mL/min (50-200) 10/07/20 07:00 VTE Score: 5 VTE Risk Level: Low Risk - Prophylaxis Types of VTE Prophylaxis: IPCS Knee High, Pharmacological (LOVENOX AND ICDS ORDERED) Location of Applied Device: Not Applicable
[2020-10-07 11:59] LABS: POC Glucose,Bedside 324 (70-110)
--- NOTE | 2020-10-07 12:29 | CT_ITS ---
PROCEDURE INFORMATION: Exam: CT Abdomen And Pelvis Without Contrast Exam date and time: 10/07/2020 12:29 PM Age: 65 years old Clinical indication: Localized; Left upper quadrant (luq); Prior surgery; Surgery date: 6+ months; Surgery type: Colon and prostate cancer surgery 2006; Patient HX: Luq abdominal pain; Additional info: Pancreatitis? Luq TECHNIQUE: Imaging protocol: Computed tomography of the abdomen and pelvis without contrast. Radiation optimization: All CT scans at this facility use at least one of these dose optimization techniques: automated exposure control; mA and/or kV adjustment per patient size (includes targeted exams where dose is matched to clinical indication); or iterative reconstruction. COMPARISON: CT ABDOMEN PELVIS W CON 01/21/2019 5:11 PM FINDINGS: Lungs: Large bulla noted along the medial aspect of the right middle lobe. This is unchanged. Mediastinal space: A small hiatal hernia is present. Liver: There is a diffuse decrease in hepatic parenchymal density, consistent with moderate fatty infiltration. Gallbladder and bile ducts: Gallbladder is contracted. Pancreas: Multiple pancreatic calcifications are present with a 4.5 cm cyst noted along the body of the pancreas. No surrounding peripancreatic edematous changes are present. Spleen: The spleen demonstrates punctate calcifications, consistent with remote granulomatous organism exposure. Adrenal glands: Normal. No mass. Kidneys and ureters: Normal. No hydronephrosis. Stomach and bowel: A large amount of stool is noted throughout the colon. Appendix: No evidence of appendicitis. Intraperitoneal space: Normal. No significant fluid collection. Vasculature: The vasculature demonstrates diffuse mild atherosclerotic calcification. Lymph nodes: There are multiple nonspecific nonpathologic but prominent lymph nodes in the mesentery. There are no mesenteric lymph nodes of pathologic dimensions. Urinary bladder: Unremarkable as visualized. Reproductive: Status post prostatectomy. Bones/joints: The lumbar spine demonstrates mild degenerative changes at multiple levels. Soft tissues: Soft tissues are normal. IMPRESSION: 1. Multiple pancreatic calcifications are present with a 4.5 cm cyst noted along the body of the pancreas. No surrounding peripancreatic edematous changes are present. Findings are most consistent with chronic pancreatitis. 2. There is a diffuse decrease in hepatic parenchymal density, consistent with moderate fatty infiltration. 3. A large amount of stool is noted throughout the colon.
--- NOTE | 2020-10-07 15:22 | HMH.PHAVTE ---
[facility] Pharmacy VTE Monitoring - Patient Demographics Admission date: 10/07/20 Report Date: 10/07/20 Time: 15:22 Allergies/Adverse Reactions: Patient Allergies No Known Allergies Allergy (Verified 04/30/18 11:22) Height: 1.73 m Weight: 70.959 kg Patient Problems: Current Active Problems Tobacco use disorder (Chronic) Hx of malignant neoplasm of colon (Acute) COPD (chronic obstructive pulmonary disease) (Chronic) HTN (hypertension) (Chronic) Acute pancreatitis (Acute) [place] (acute kidney injury) (Acute) Chronic alcohol abuse (Acute) Acute renal failure (Acute) Protein-calorie malnutrition, mild (Acute) Macrocytic anemia (Acute) Type 2 diabetes mellitus (Chronic) Transaminitis (Acute) Illiteracy (Acute) Alcohol withdrawal (Acute) - VTE Risk Labs: VTE Related Lab Results Hgb 9.7 g/dL (14.1-18.0) L D 10/07/20 07:00 Hct 29.1 % (42.0-52.0) L 10/07/20 07:00 Plt Count 158 K/mm3 (142-424) 10/07/20 07:00 PT 12.5 seconds (10.1-12.5) 10/06/20 15:36 INR 1.06 (0.9-1.1) 10/06/20 15:36 APTT 26.7 seconds (22.8-30.6) 10/06/20 15:36 BUN 53 mg/dl (9-20) H 10/07/20 07:00 Creatinine 4.00 mg/dl (0.66-1.25) H D 10/07/20 07:00 Estimated Creat Clear 18 mL/min (50-200) 10/07/20 07:00 VTE Score: 5 VTE Risk Level: Low Risk - Prophylaxis Types of VTE Prophylaxis: TEDS Knee High, Pharmacological Pharmacologic Type: Enoxaparin (LOVENOX ORDERED)
[2020-10-07 16:23] LABS: POC Glucose,Bedside 138 (70-110)
[2020-10-07 18:13] LABS: Hematocrit 33.7 % (42.0-52.0)
[2020-10-07 18:14] LABS: Hemoglobin 11.1 g/dL (14.1-18.0)
[2020-10-07 18:17] LABS: Chloride 98 mmol/L (98-107); Sodium 136 mmol/L (136-145)
[2020-10-07 18:20] LABS: Blood Urea Nitrogen 40 mg/dl (9-20); Carbon Dioxide 28 mmol/L (22.0-30.0); Creatinine Clearance Estimated 25 mL/min (50-200); Estimated Glomerular Filt Rate 21 ml/min (>60); GFR (African American) 26 ML/MIN (>60); Glucose 192 mg/dl (74-100)
--- NOTE | 2020-10-07 18:26 | PC.NURSE ---
Pt has been pleasant and cooperative this shift. A&O X4. No complaints of pain or SOA. Pt is on room air with sats. >90%. Lung sounds reveal scattered wheezing. No edema noted. Telemetry reveals ST. Skin is C/D/I. Pt uses the urinal to void clear, yellow urine without issue. 1 large, brown, loose BM this shift. Pt ambulates independently to/from the bathroom, throughout the room, and in the hallway. Pt also sat up in the recliner for several hours today. FSBS results have been 324 and 138. 20 G peripheral IV in the LT AC is patent SL. 20 G peripheral IV in the RT forearm is patent and infusing LR @ 100 ML/HR. VSS. Call light within reach. Will continue to monitor.
[2020-10-07 19:07] LABS: Calcium 7.5 mg/dl (8.4-10.2)
[2020-10-07 21:38] LABS: POC Glucose,Bedside 264 (70-110)
[2020-10-08] VITALS (9 sets, daily range): BP systolic 133–146; BP diastolic 72–93; PULSE 86–109; RESP 16–18; TEMP 36.6–36.8; O2SAT 97–99; BMI 23.7
--- NOTE | 2020-10-08 03:00 | PC.NURSE ---
late entry: pt slept off and on. ambulates through halls frequently. iv patent and infusing per order. no complaints. vss. call light in reach. will continue to monitor
[2020-10-08 06:02] LABS: POC Glucose,Bedside 221 (70-110)
[2020-10-08 06:13] LABS: Basophils % 0.9 % (0.1-2.0); Eosinophils # 0.2 K/mm3 (0.0-0.4); Eosinophils % 4.9 % (0.1-12.0); Hematocrit 30.1 % (42.0-52.0); Hemoglobin 10.1 g/dL (14.1-18.0); Lymphocytes # 1.4 K/mm3 (0.7-4.5); Lymphocytes % 32.8 % (10-50); Mean Corpuscular HGB Conc 33.6 g/dL (31.8-35.4); Mean Corpuscular Hemoglobin 33.2 pg (27.0-31.2); Mean Corpuscular Volume 98.7 fl (80-94); Mean Platelet Volume 8.9 fl (7.4-10.4); Monocytes # 0.6 K/mm3 (0.1-1.0); Monocytes % 13.9 % (1.7-9.3); Neutrophils # 2.1 K/mm3 (1.8-7.8); Neutrophils % 47.5 % (37.0-80.0); Platelet Count 178 K/mm3 (142-424); Red Blood Count 3.05 M/mm3 (4.60-6.20); Red Cell Distribution Width 15.3 % (11.5-17.5); White Blood Count 4.4 K/mm3 (4.8-10.8)
[2020-10-08 06:23] LABS: Alanine Aminotransferase 76 U/L (12-78); Albumin Level 3.2 g/dl (3.5-5.0); Albumin/Globulin Ratio 1.3 (1.1-1.8); Alkaline Phosphatase 155 U/L (38-126); Anion Gap 10.7 mEq/L (5-15); Aspartate Amino Transferase 75 U/L (17-59); Bilirubin,Total 0.9 mg/dl (0.2-1.3); Blood Urea Nitrogen 30 mg/dl (9-20); Carbon Dioxide 26 mmol/L (22.0-30.0); Chloride 102 mmol/L (98-107); Creatinine Clearance Estimated 34 mL/min (50-200); Estimated Glomerular Filt Rate 30 ml/min (>60); GFR (African American) 37 ML/MIN (>60); Globulin 2.5 g/dL (1.3-3.2); Glucose 180 mg/dl (74-100); Potassium 3.7 mmoL/L (3.5-5.1); Sodium 135 mmol/L (136-145); Total Protein,Serum 5.7 g/dl (6.3-8.2)
[2020-10-08 06:30] LABS: Magnesium 0.7 mg/dl (1.6-2.3)
[2020-10-08 06:58] LABS: Calcium 6.7 mg/dl (8.4-10.2)
--- NOTE | 2020-10-08 08:15 | HMH.ACPN2 ---
Internal Medicine - PN: Subj *Date: 10/08/20 *Time: 08:15 Interval history: Patient sitting on the side of the bed eating breakfast, states that he feels some better. Denies chest pain or shortness of air. Exam Vital signs and Labs for Last 24 Hours: Temp Pulse Resp BP Pulse Ox 98.0 F 92 H 17 146/93 H 99 10/08/20 04:00 10/08/20 04:00 10/08/20 04:00 10/08/20 04:00 10/08/20 04:00 Laboratory Results - last 24 hr 10/07/20 11:41: POC Glucose 324 H* 10/07/20 16:16: POC Glucose 138 H 10/07/20 18:05: Sodium 136, Potassium 4.0, Chloride 98, Carbon Dioxide 28, Anion Gap 14.0, BUN 40 H, Creatinine 3.00 H D, Estimated Creat Clear 25, Estimated GFR 21 L, Est GFR ( Amer) 26 L D, Glucose 192 H D, Calcium 7.5 L D 10/07/20 18:05: Hgb 11.1 L D, Hct 33.7 L 10/07/20 21:23: POC Glucose 264 H 10/08/20 05:48: WBC 4.4 L, RBC 3.05 L, Hgb 10.1 L, Hct 30.1 L, MCV 98.7 H, MCH 33.2 H, MCHC 33.6, RDW 15.3, Plt Count 178, MPV 8.9, Neut % (Auto) 47.5, Lymph % (Auto) 32.8, [place] % (Auto) 13.9 H, Eos % (Auto) 4.9, Baso % (Auto) 0.9, Neut # (Auto) 2.1, Lymph # (Auto) 1.4, [place] # (Auto) 0.6, Eos # (Auto) 0.2, Baso # (Auto) 0.0 10/08/20 05:48: Sodium 135 L, Potassium 3.7, Chloride 102, Carbon Dioxide 26, Anion Gap 10.7, BUN 30 H, Creatinine 2.20 H D, Estimated Creat Clear 34, Estimated GFR 30 L, Est GFR ( Amer) 37 L D, Glucose 180 H, Calcium 6.7 L D, Magnesium 0.7 L D, Total Bilirubin 0.9, AST 75 H, ALT 76, Alkaline Phosphatase 155 H, Total Protein 5.7 L, Albumin 3.2 L, Globulin 2.5, Albumin/Globulin Ratio 1.3 10/08/20 05:52: POC Glucose 221 H I & O for Last 24 hours: Intake & Output 10/05/20 10/06/20 10/07/20 10/08/20 11:59 11:59 11:59 11:59 Intake Total 4250 / 4250 3104 / 3104 Output Total 1600 / 1600 Balance 4249 / 4249 1504 / 1504 Weight 157 lb 156 lb 7 oz 156 lb 8 oz Narrative: Rhonchi and crackles in both lung bases. Abdomen is softer but fish cleaner machine tender in the epigastric area. No edema noted. Heart rate regular. Neurologically intact. Oropharynx clear but slightly dry. Assessment and Plan (1) Acute renal failure Status: Acute Category: Medical Code(s): N17.9 - Acute kidney failure, unspecified (2) Protein-calorie malnutrition, mild Status: Acute Category: Medical Code(s): E44.1 - Mild protein-calorie malnutrition (3) Macrocytic anemia Status: Acute Category: Medical Code(s): D53.9 - Nutritional anemia, unspecified (4) Chronic alcohol abuse Status: Acute Category: Medical Code(s): F10.10 - Alcohol abuse, uncomplicated (5) Acute pancreatitis Status: Acute Qualifiers: Pancreatitis type: alcohol induced Acute pancreatitis complication: no infection or necrosis Qualified Code(s): K85.20 - Alcohol induced acute pancreatitis without necrosis or infection Category: Medical Code(s): K85.90 - Acute pancreatitis without necrosis or infection, unspecified (6) Hx of malignant neoplasm of colon Status: Acute Category: Medical Code(s): Z85.038 - Personal history of other malignant neoplasm of large intestine (7) COPD (chronic obstructive pulmonary disease) Problem details: Qualifies for home oxygen. This will be set up. Status: Chronic Qualifiers: COPD type: COPD with acute exacerbation Qualified Code(s): J44.1 - Chronic obstructive pulmonary disease with (acute) exacerbation Category: Medical Code(s): J44.9 - Chronic obstructive pulmonary disease, unspecified (8) HTN (hypertension) Status: Chronic Qualifiers: Hypertension type: essential hypertension Qualified Code(s): I10 - Essential (primary) hypertension Category: Medical Code(s): I10 - Essential (primary) hypertension (9) Tobacco use disorder Status: Chronic Category: Medical Code(s): F17.200 - Nicotine dependence, unspecified, uncomplicated (10) Type 2 diabetes mellitus Status: Chronic Qualifiers: Diabetes mellitus alf insulin use: wi
--- NOTE | 2020-10-08 08:29 | SW/DCPLANNER ---
Addendum entered by Lauryn Salazar 10/08/20 10:44: WENT BACK IN TO SEE PATIENT AFTER HE HAD TIME TO THINK ABOUT REHAB SERVICES AND HE AGAIN REFUSES TO GO ANYWHERE FOR INPATIENT REHAB R/T HIS ETOH USE.. HE ALSO SAID HE DOESN'T WANT OUT PATIENT EITHER... I TOLD HIM ABOUT MY [facility] AND [facility] BOTH HERE IN [place] AND HE AGAIN STATED HE DOES NOT WANT TO GO... I TOLD HIM I AM HERE ALL DAY IF HE SHOULD CHANGE HIS MIND AND I WOULD SET UP AN APPT IF HE WOULD CONSIDER TRYING TO GO... WILL FOLLOW UP IN THE AM WHEN MD MAKES ROUNDS.... Original Note: HAD A CONVERSATION WITH PATIENT TODAY REGARDING ETOH REHAB PER DR PACHECO...PATIENT PRESENTED INTO THE HOSPITAL IN ACUTE RENAL FAILURE..PATIENT STATED HE DRINKS A PINT OF LIQUOR A DAY...HE HAS BEEN IN REHAB FOR HIS EXCESSIVE DRINKING BEFORE AND STATED HE HAD BEEN AT THE [facility]IR[facility]...I ASKED HIM IF HE WOULD BE WILLING TO GO BACK AND HE WAS HESITANT TO A COMMITMENT...HE STATED HE PREFERS TO DO OUT PATIENT IF ANYTHING.. I TOLD HIM I FELT HE NEEDED INPATIENT WITH THE AMOUNT OF DRINKING HE DOES DAILY... HE LIVES ALONE AND I AM AFRAID HE WON'T BE ABLE TO REFRAIN FROM DRINKING WITHOUT SUPERVISION... TOLD HIM TO THINK ABOUT IT AND I WOULD BE BACK IN TO SEE HIM LATER AND WE WOULD DISCUSS OTHER OPTIONS...
[2020-10-08 11:46] LABS: POC Glucose,Bedside 224 (70-110)
--- NOTE | 2020-10-08 14:58 | DIET.NUTRFU ---
Nutritional assessment/consult completed. Pt given diet edu/counseling for Sobriety, DM, Recurrent Pancreatitis/low fat diet, and high energy/protein diet/nutritional considerations ETOH abuse. Pt admits he hasn't eaten adequately in months, consumes most energy through alcohol. He was minimally cooperative/communicative, will attempt to give verbal diet education to his daughter, written edu provided. Strongly encouraged pt to review nutrition recommendations with his daughter and f/u with me through OP counseling and/or telecommunication.
[2020-10-08 17:19] LABS: POC Glucose,Bedside 246 (70-110)
--- NOTE | 2020-10-08 19:29 | PC.NURSE ---
PT HAS HAD A GOOD DAY. NO COMPLAINTS VOICED. NO S/S OF WITHDRAWL. PT AMBULATES INDEPENDENTLY T/O ROOM AND GUIDO. VSS. WILL CONT. TO MONITOR.
[2020-10-08 20:50] LABS: POC Glucose,Bedside 299 (70-110)
[2020-10-09] VITALS (7 sets, daily range): BP systolic 138–150; BP diastolic 82–87; PULSE 80–120; RESP 17–19; TEMP 36.5–36.9; O2SAT 98; BMI 23.5
--- NOTE | 2020-10-09 03:41 | PC.NURSE ---
pt has slept off and on this shift. iv patent and infusing. pt has no complaints. vss. call light in reach. will continue to monitor
[2020-10-09 06:22] LABS: POC Glucose,Bedside 136 (70-110)
[2020-10-09 06:39] LABS: Basophils % 0.8 % (0.1-2.0); Eosinophils # 0.3 K/mm3 (0.0-0.4); Eosinophils % 5.7 % (0.1-12.0); Hematocrit 30.6 % (42.0-52.0); Hemoglobin 10.2 g/dL (14.1-18.0); Lymphocytes # 1.7 K/mm3 (0.7-4.5); Lymphocytes % 32.7 % (10-50); Mean Corpuscular HGB Conc 33.3 g/dL (31.8-35.4); Mean Corpuscular Hemoglobin 33.2 pg (27.0-31.2); Mean Corpuscular Volume 99.6 fl (80-94); Mean Platelet Volume 8.4 fl (7.4-10.4); Monocytes # 0.6 K/mm3 (0.1-1.0); Monocytes % 11.1 % (1.7-9.3); Neutrophils # 2.5 K/mm3 (1.8-7.8); Neutrophils % 49.7 % (37.0-80.0); Platelet Count 187 K/mm3 (142-424); Red Blood Count 3.07 M/mm3 (4.60-6.20); Red Cell Distribution Width 15.2 % (11.5-17.5); White Blood Count 5.1 K/mm3 (4.8-10.8)
[2020-10-09 06:55] LABS: Alanine Aminotransferase 70 U/L (12-78); Albumin Level 3.2 g/dl (3.5-5.0); Albumin/Globulin Ratio 1.2 (1.1-1.8); Alkaline Phosphatase 152 U/L (38-126); Anion Gap 8.9 mEq/L (5-15); Aspartate Amino Transferase 64 U/L (17-59); Bilirubin,Total 0.6 mg/dl (0.2-1.3); Blood Urea Nitrogen 15 mg/dl (9-20); Carbon Dioxide 27 mmol/L (22.0-30.0); Chloride 105 mmol/L (98-107); Creatinine Clearance Estimated 46 mL/min (50-200); Estimated Glomerular Filt Rate 44 ml/min (>60); GFR (African American) 53 ML/MIN (>60); Globulin 2.6 g/dL (1.3-3.2); Glucose 108 mg/dl (74-100); Potassium 3.9 mmoL/L (3.5-5.1); Sodium 137 mmol/L (136-145); Total Protein,Serum 5.8 g/dl (6.3-8.2)
[2020-10-09 07:46] LABS: Calcium 6.8 mg/dl (8.4-10.2); Magnesium 0.8 mg/dl (1.6-2.3)
--- NOTE | 2020-10-09 07:47 | HMH.DCSUM ---
General - General Admission date:: 10/06/20 Discharge date: 10/09/20 HPI HPI: 65-year-old gentleman with remote history of alcohol dependence, recurrent pancreatitis, COPD, and type 2 diabetes who was referred to the ER yesterday after obtaining outpatient labs on Thursday. Labs concerning for acute renal failure with creatinine of 8.8 (baseline 1.0 in June), mild transaminitis, and macrocytosis. On arrival to the ER, patient complained mainly of fatigue and anxiety. Denied significant recent alcohol use, states he only had a few beers the day before arrival. Reports he had also been having some low blood sugars (A1c on Thursday 5.8 significantly improved from previous in June of greater than 10.) Had not been eating well per his report. Was afebrile but noted to be mildly tachycardic. Repeat labs in the ER showed improvement in creatinine to mid 6 range after fluid bolus, elevated lipase, and anemia after fluid resuscitation. Patient admitted for further management of gross metabolic abnormalities and acute kidney failure. Findings on admission concerning for pancreatitis, acute renal failure, alcohol withdrawal, macrocytic anemia, and protein calorie malnutrition. On assessment this morning he states he is feeling a little better but still quite tired. Continues to deny any alcohol consumption aside from a few beers prior to coming to the hospital. Of note, discussion with his daughter states that he admitted to the ER drinking vodka (his beverage of choice). He has tolerated oxazepam without significant obtundation or sleepiness. Improvement in urine output, no diarrhea or vomiting. Also of note, patient is reportedly illiterate, cannot read or write. This complicates his care and communication of medical condition/treatment. Hospital Course Hospital Course: 65-year-old gentleman admitted for acute renal failure, pancreatitis, alcohol withdrawal. Was initiated on alcohol withdrawal protocol, received vitamin supplementation according to protocol. Also initiated on aggressive fluid rehydration and held prescribe medications that were potentially nephrotoxic. Mr. Rivero did well over the course of the admission with improvement in his creatinine from 8.8 on labs obtained the day before admission to creatinine of 1.6 on day of discharge. No significant withdrawal symptoms from alcohol other than some mild anxiety. Tolerated advancement of diet. Remained hemodynamically stable. Met criteria for discharge home, transition to oral regimen. Problems were addressed as follows: Acute renal failure -Baseline creatinine normal back in June. Gradually improved over the course of admission from 8.8-1.6. We will repeat labs prior to follow-up. Plan for follow-up next week, labs in 3 days. Hypomagnesemia -Developed during fluid resuscitation and treatment for acute conditions. Likely due to nutritional deficiency as he had not been eating well for an unknown period of time prior to admission. Repleted via IV magnesium. 1.4 on day of discharge. Plan for daily supplementation. Added to his prepackaged medications. Alcohol withdrawal -Patient struggled with alcoholism for many many years. Has been through rehab before and did well. Unfortunately has relapsed. Tolerated withdrawal protocol well with no seizures or significant symptoms other than some mild anxiety and some tachycardia. Discussed rehab, patient has no interest at this time. Discussed naltrexone and its benefit in helping decrease his cravings. Patient open to this, has taken it before. Medication to be added to his prepackaged meds to assist in compliance. Will monitor liver function with follow-up labs. We will start with 50 mg once a day for a week and advance to 100 mg daily. Reassess continued need and therapeutic benefit in 3 to 6 months. Pancreatitis -Chronic issues per his history. Mild acute pancreatitis on admission. Pain improved during admission. S
[2020-10-09 11:27] LABS: POC Glucose,Bedside 264 (70-110)
[2020-10-09 11:35] LABS: CA 19-9 1736 U/mL (0-35)
--- NOTE | 2020-10-09 15:41 | HMH.PHAINT ---
DISCHARGE COUNSELING COMPLETED ON PATIENT. NEW PRESCRIPTIONS INCLUDE THIAMINE, MAGNESIUM, AND NALTREXONE. CLARIFIED NALTREXONE DOSE INSTRUCTIONS WITH CLINIC PHARMACY. PATIENT GETS HIS MEDICATIONS PACKAGED THERE. PATIENT IS TO STOP JARDIANCE AND COLCRYS FOR NOW. PATIENT VERBALIZED UNDERSTANDING AND HAD NO QUESTIONS AT THIS TIME. -MATHEUS MCGRAW, CRYSTALD
[2020-10-09 16:51] LABS: Chloride 102 mmol/L (98-107); Sodium 134 mmol/L (136-145)
[2020-10-09 16:54] LABS: Blood Urea Nitrogen 12 mg/dl (9-20); Carbon Dioxide 26 mmol/L (22.0-30.0); Creatinine Clearance Estimated 49 mL/min (50-200); Estimated Glomerular Filt Rate 47 ml/min (>60); GFR (African American) 57 ML/MIN (>60)
[2020-10-09 16:55] LABS: Glucose 230 mg/dl (74-100); Magnesium 1.4 mg/dl (1.6-2.3)
[2020-10-09 18:07] LABS: Calcium 7.6 mg/dl (8.4-10.2)
== END 2020-10-09 16:55 | disposition home or self-care (01) | DRG 682 ==
LOC: ER 17:17 → 2ND 18:38
PROVIDERS: Internal Medicine Adolescent Medicine; Admitting Provider Internal Medicine Adolescent Medicine; Emergency Provider Family Medicine; PCP Internal Medicine Adolescent Medicine; Visit Provider Internal Medicine Adolescent Medicine
DX: N17.9 Acute kidney failure, unspecified (principal); K85.20 Alcohol induced acute pancreatitis without necrosis or infection; E44.1 Mild protein-calorie malnutrition; F10.230 Alcohol dependence with withdrawal, uncomplicated; E11.9 Type 2 diabetes mellitus without complications; Z79.84 Long term (current) use of oral hypoglycemic drugs; Z68.23 Body mass index [BMI] 23.0-23.9, adult; D53.9 Nutritional anemia, unspecified; Z85.038 Personal history of other malignant neoplasm of large intestine; Z55.0 Illiteracy and low-level literacy; J44.9 Chronic obstructive pulmonary disease, unspecified; F17.210 Nicotine dependence, cigarettes, uncomplicated; E78.5 Hyperlipidemia, unspecified; I10 Essential (primary) hypertension; E83.42 Hypomagnesemia; M10.9 Gout, unspecified; F41.9 Anxiety disorder, unspecified; Z79.82 Long term (current) use of aspirin
CPT/HCPCS: 36415; 74176; 80048; 80053; 81001; 82607; 82746; 82962; 83036; 83605; 83690; 83735; 84100; 84550; 85014; 85018; 85025; 85610; 85730; 86316; 87040; 87581; 87633; 87798; 93005; 96365; 96366; 99284

== ENCOUNTER → 2020-10-12 16:41 | Outpatient (CLI) | payer MEDICARE, OTHER, SELFPAY ==
[2020-10-12 17:54] LABS: Chloride 102 mmol/L (98-107); Sodium 137 mmol/L (136-145)
[2020-10-12 17:55] LABS: Potassium 5.8 mmoL/L (3.5-5.1)
[2020-10-12 17:57] LABS: Alanine Aminotransferase 58 U/L (12-78); Albumin/Globulin Ratio 1.5 (1.1-1.8); Alkaline Phosphatase 154 U/L (38-126); Anion Gap 17.8 mEq/L (5-15); Aspartate Amino Transferase 52 U/L (17-59); Bilirubin,Total 0.6 mg/dl (0.2-1.3); Blood Urea Nitrogen 14 mg/dl (9-20); Calcium 9.7 mg/dl (8.4-10.2); Carbon Dioxide 23 mmol/L (22.0-30.0); Estimated Glomerular Filt Rate 55 ml/min (>60); GFR (African American) 67 ML/MIN (>60); Globulin 2.6 g/dL (1.3-3.2); Glucose 176 mg/dl (74-100); Total Protein,Serum 6.6 g/dl (6.3-8.2)
[2020-10-12 18:07] LABS: Magnesium 0.9 mg/dl (1.6-2.3)
[2020-10-14 10:45] LABS: CA 19-9 1306 U/mL (0-35)
== END ==
PROVIDERS: Visit Provider Internal Medicine Adolescent Medicine
DX: K86.0 Alcohol-induced chronic pancreatitis (principal); N17.9 Acute kidney failure, unspecified
CPT/HCPCS: 36415; 80053; 83735; 86316

== ENCOUNTER 2020-10-16 17:35 | Outpatient (CLI) | payer MEDICARE, OTHER, SELFPAY ==
[2020-10-16 17:50] VITALS: BP 164/94; PULSE 102; RESP 15; TEMP 37.3; O2SAT 97
[2020-10-16 18:11] VITALS: BMI 23.4
[2020-10-16 18:12] VITALS: BP 151/94; PULSE 100; RESP 13; TEMP 36.1
--- NOTE | 2020-10-16 18:13 | PC.NURSE ---
PATIENT GIVEN DR. LAWRENCE, SITTING UP IN BED WITH NO COMPLAINTS VOICED. VISITOR AT BESIDE.
[2020-10-16 19:07] VITALS: BP 155/91; PULSE 101; RESP 15; TEMP 37.1; O2SAT 97
== END 2020-10-16 19:13 | disposition home or self-care (01) ==
LOC: INF 17:38
PROVIDERS: PCP Internal Medicine Adolescent Medicine; Visit Provider Internal Medicine Adolescent Medicine
DX: E83.42 Hypomagnesemia (principal)
CPT/HCPCS: 96365; G0463

== ENCOUNTER → 2020-10-26 12:33 | Outpatient (CLI) | payer MEDICARE, OTHER, SELFPAY ==
[2020-10-26 14:34] LABS: Chloride 97 mmol/L (98-107); Potassium 5.2 mmoL/L (3.5-5.1); Sodium 133 mmol/L (136-145)
[2020-10-26 14:36] LABS: Alanine Aminotransferase 24 U/L (12-78); Aspartate Amino Transferase 31 U/L (17-59); Blood Urea Nitrogen 11 mg/dl (9-20); Estimated Glomerular Filt Rate 61 ml/min (>60); GFR (African American) 74 ML/MIN (>60)
[2020-10-26 14:37] LABS: Albumin Level 3.9 g/dl (3.5-5.0); Albumin/Globulin Ratio 1.4 (1.1-1.8); Alkaline Phosphatase 132 U/L (38-126); Anion Gap 17.2 mEq/L (5-15); Bilirubin,Total 0.4 mg/dl (0.2-1.3); Calcium 9.3 mg/dl (8.4-10.2); Carbon Dioxide 24 mmol/L (22.0-30.0); Globulin 2.7 g/dL (1.3-3.2); Glucose 249 mg/dl (74-100); Magnesium 1.5 mg/dl (1.6-2.3); Total Protein,Serum 6.6 g/dl (6.3-8.2)
[2020-10-30 17:09] LABS: CA 19-9 68 U/mL (0-35)
== END ==
PROVIDERS: Visit Provider Internal Medicine Adolescent Medicine
DX: K86.0 Alcohol-induced chronic pancreatitis (principal); I10 Essential (primary) hypertension
CPT/HCPCS: 36415; 80053; 83735; 86316

== ENCOUNTER → 2020-10-30 11:48 | Outpatient (CLI) | payer MEDICARE, OTHER, SELFPAY | DX: Z01.812 Encounter for preprocedural laboratory examination (principal); Z20.822 Contact with and (suspected) exposure to COVID-19; K86.89 Other specified diseases of pancreas | CPT/HCPCS: U0003 ==

== ENCOUNTER → 2020-11-15 14:06 | Outpatient (CLI) | payer MEDICARE, OTHER, SELFPAY ==
[2020-11-15 15:32] LABS: Alanine Aminotransferase 25 U/L (12-78); Albumin Level 3.6 g/dl (3.5-5.0); Albumin/Globulin Ratio 1.2 (1.1-1.8); Alkaline Phosphatase 145 U/L (38-126); Anion Gap 16.9 mEq/L (5-15); Aspartate Amino Transferase 26 U/L (17-59); Bilirubin,Total 0.4 mg/dl (0.2-1.3); Blood Urea Nitrogen 17 mg/dl (9-20); Calcium 9.2 mg/dl (8.4-10.2); Carbon Dioxide 21 mmol/L (22.0-30.0); Chloride 99 mmol/L (98-107); Estimated Glomerular Filt Rate 47 ml/min (>60); GFR (African American) 57 ML/MIN (>60); Glucose 154 mg/dl (74-100); Magnesium 1.5 mg/dl (1.6-2.3); Potassium 5.9 mmoL/L (3.5-5.1); Sodium 131 mmol/L (136-145); Total Protein,Serum 6.6 g/dl (6.3-8.2)
[2020-11-17 07:12] LABS: CA 19-9 51 U/mL (0-35)
== END ==
PROVIDERS: Visit Provider Internal Medicine Adolescent Medicine
DX: I10 Essential (primary) hypertension (principal); K86.0 Alcohol-induced chronic pancreatitis
CPT/HCPCS: 36415; 80053; 83735; 86316

== ENCOUNTER 2020-12-16 14:46 | Inpatient (IN) | payer MEDICARE, OTHER, SELFPAY ==
[2020-12-16 14:47] VITALS: BP 122/74; PULSE 115; RESP 18; TEMP 36.7; O2SAT 99; BMI 22.8
--- NOTE | 2020-12-16 14:55 | HMH.EDGENADL ---
ED Disposition Clinical Impression: Alcoholism Acute alcoholic pancreatitis Qualifiers: Acute pancreatitis complication: no infection or necrosis Qualified Code(s): K85.20 - Alcohol induced acute pancreatitis without necrosis or infection Disposition: Admitted as Observation Condition on Discharge: Fair Referrals: Alphonso Auguste MD [Primary Care Provider] - - Critical Care Critical Care Time: No Attestation: On 12/16/20, the high probability of a clinically significant, sudden or life threatening deterioration of the following system(s) required my full and direct attention, intervention and personal management. The time I documented below is in addition to time spent performing reported procedures but includes the following listed in this critical care notation. Medical Decision Making - Steven Inquiry Pt receiving controlled substance: Yes Steven was queried for this patient: Yes Risks and benefits of using a controlled substance: were not discussed with pt by me Vital Signs: 12/16/20 14:47 12/16/20 16:30 Temperature 98.1 F Temperature Source Oral Pulse Rate 103 H Pulse Rate [Right] 115 H Respiratory Rate 18 Blood Pressure 125/71 Blood Pressure [Right Arm] 122/74 Blood Pressure Mean 89 Blood Pressure Mean [Right Arm] 90 Blood Pressure Source [Right Arm] Automatic Cuff Blood Pressure Position [Right Arm] Supine 02 Sat by Pulse Oximetry 99 100 Oxygen Delivery Method Room Air - Lab Data Lab Results 12/16/20 15:01: WBC 14.5 H, RBC 4.48 L, Hgb 13.9 L, Hct 42.5, MCV 94.8 H, MCH 31.1, MCHC 32.8, RDW 14.6, Plt Count 334, MPV 7.5, Neut % (Auto) 77.0, Lymph % (Auto) 15.9, [place] % (Auto) 5.2, Eos % (Auto) 1.7, Baso % (Auto) 0.2, Neut # (Auto) 11.2 H, Lymph # (Auto) 2.3, [place] # (Auto) 0.8, Eos # (Auto) 0.3, Baso # (Auto) 0.0 12/16/20 15:01: Sodium 132 L, Potassium 4.9, Chloride 94 L, Carbon Dioxide 26, Anion Gap 16.9 H, BUN 26 H, Creatinine 1.50 H, Estimated Creat Clear 47, Estimated GFR 47 L, Est GFR ( Amer) 57 L, Glucose 68 L, Calcium 9.8, Total Bilirubin 0.5, AST 24, ALT 17, Alkaline Phosphatase 126, Troponin I < 0.01, Total Protein 8.1, Albumin 4.2, Globulin 3.9 H, Albumin/Globulin Ratio 1.1, Amylase 141 H, Lipase 613 H 12/16/20 15:01: Plasma/Serum Alcohol < 10 12/16/20 16:45: Urine Color Yellow, Urine Appearance Clear, Urine pH 6.0, Ur Specific Red [place] 1.010, Urine Protein Negative, Urine Glucose (UA) Negative, Urine Ketones Negative, Urine Blood Negative, Urine Nitrate Negative, Urine Bilirubin Negative, Urine Urobilinogen 0.2, Ur Leukocyte Esterase Negative Result diagrams: 12/16/20 15:01 12/16/20 15:01 Orders (Tests/Meds): ED MEDICATIONS Discontinued Medications Generic Name Dose Route Start Last Admin Trade Name Freq PRN Reason Stop Dose Admin Iopamidol 75 ml 12/16/20 16:59 12/16/20 17:00 Iopamidol-370 (76%);100ml Bottle IV 12/16/20 17:00 75 ml ONCE ONE Administration Morphine Sulfate 4 mg 12/16/20 15:06 12/16/20 15:09 Morphine 4mg/Ml Syringe IV 12/16/20 15:07 4 mg ONCE ONE Administration Ondansetron HCl 4 mg 12/16/20 15:06 12/16/20 15:09 Ondansetron 4mg/2ml Vial IV 12/16/20 15:07 4 mg ONCE ONE Administration Sodium Chloride 1,000 ml 12/16/20 15:06 12/16/20 15:09 Sodium Chloride 0.9% 1000ml Bag IV 12/16/20 15:07 1,000 ml BOLUS ONE Administration Sodium Chloride 10 ml 12/16/20 16:59 12/16/20 17:00 Sodium Chloride 0.9% 10ml Syr (Rad Only) IV 12/16/20 17:00 10 ml ONCE ONE Administration ORDERS Category Date Time Status Drug Screen,Urine Stat Lab 12/16/20 16:45 Received Rapid PCR Covid and Flu A/B Stat Lab 12/16/20 17:05 Received Troponin I Q3H Lab 12/16/20 18:15 Ordered Troponin I Q3H Lab 12/16/20 21:15 Ordered Urinalysis and Microscopic Stat Lab 12/16/20 16:45 Results - Radiology Data #1 Image(s): Chest Image Reviewed: Yes I have reviewed radiologist's interpretation PROCEDURE INFORMATIO
--- NOTE | 2020-12-16 15:00 | CT_ITS ---
PROCEDURE INFORMATION: Exam: CT Abdomen And Pelvis With Contrast Exam date and time: 12/16/2020 3:00 PM Age: 65 years old Clinical indication: Abdominal pain; Generalized; Additional info: Abdo pain, h/o pancreatitis TECHNIQUE: Imaging protocol: Computed tomography of the abdomen and pelvis with contrast. Radiation optimization: All CT scans at this facility use at least one of these dose optimization techniques: automated exposure control; mA and/or kV adjustment per patient size (includes targeted exams where dose is matched to clinical indication); or iterative reconstruction. Contrast material: ISOVUE; Contrast volume: 75 ml; Contrast route: IV; COMPARISON: CT ABDOMEN PELVIS WO CON 10/07/2020 12:51 PM FINDINGS: Lungs: Mild bilateral atelectasis. Emphysematous changes seen as well as a bleb in the right middle lobe. Liver: Normal. No mass. Gallbladder and bile ducts: There is pericholecystic fluid and wall thickening of the gallbladder. Pancreas: Extensive calcifications of the pancreas probably due to prior pancreatitis. There are cystic changes in the head of the pancreas. The pancreatic parenchyma is atrophic. The duct in the body and tail is mildly dilated. There is significant stranding surrounding the head and neck of the pancreas. There is a small cystic structure just superior to the antrum of the stomach and also next to the gallbladder on image 37 that measures about 15 mm. This could potentially be a small abscess or cyst. A probable pseudocyst in the body of the pancreas today measures 15 mm compared with 4 cm on prior. Spleen: Normal. No splenomegaly. Adrenal glands: Normal. No mass. Kidneys and ureters: Normal. No hydronephrosis. Stomach and bowel: Probable duodenal diverticulum noted. Appendix: No evidence of appendicitis. Intraperitoneal space: Unremarkable. No free air. No significant fluid collection. Vasculature: Unremarkable. No abdominal aortic aneurysm. Lymph nodes: Unremarkable. No enlarged lymph nodes. Urinary bladder: Unremarkable as visualized. Reproductive: Post treatment changes related to the prostate. Bones/joints: Unremarkable. No acute fracture. Soft tissues: Unremarkable. IMPRESSION: 1. Pericholecystic fluid and wall thickening. Recommend clinical correlation for cholecystitis and ultrasound if indicated. 2. Changes of chronic pancreatitis appear overall improved versus September 2020. There may be a cyst or microabscess superior to the gastric antrum. Some mild stranding surrounding the head and neck could represent either residual inflammation or active pancreatitis. Clinical correlation recommended.
--- NOTE | 2020-12-16 15:02 | XR_ITS ---
PROCEDURE INFORMATION: Exam: XR Chest Exam date and time: 12/16/2020 3:02 PM Age: 65 years old Clinical indication: Other: Upper abdominal pain TECHNIQUE: Imaging protocol: XR of the chest. Views: 2 views. COMPARISON: CR CXR2V XR chest 2V 05/15/2018 10:41 AM FINDINGS: Lungs: Emphysematous changes noted. There is an air soft tissue air-fluid interface seen projecting over the right heart. This correlates with a bleb partially imaged on CT abdomen pelvis today. Further characterization would require CT chest. Pleural spaces: Unremarkable. No pleural effusion. No pneumothorax. Heart: No cardiomegaly. Bones/joints: Unremarkable. IMPRESSION: There is an air soft tissue air-fluid interface seen projecting over the right heart. This correlates with a bleb partially imaged on CT abdomen pelvis today. Further characterization would require CT chest.
[2020-12-16 15:26] LABS: Chloride 94 mmol/L (98-107)
[2020-12-16 15:27] LABS: Sodium 132 mmol/L (136-145)
[2020-12-16 15:29] LABS: Alanine Aminotransferase 17 U/L (12-78); Alkaline Phosphatase 126 U/L (38-126); Bilirubin,Total 0.5 mg/dl (0.2-1.3); Blood Urea Nitrogen 26 mg/dl (9-20); Creatinine Clearance Estimated 47 mL/min (50-200); Estimated Glomerular Filt Rate 47 ml/min (>60); GFR (African American) 57 ML/MIN (>60)
[2020-12-16 15:30] LABS: Calcium 9.8 mg/dl (8.4-10.2); Glucose 68 mg/dl (74-100)
[2020-12-16 15:41] LABS: Basophils % 0.2 % (0.1-2.0); Eosinophils # 0.3 K/mm3 (0.0-0.4); Eosinophils % 1.7 % (0.1-12.0); Hematocrit 42.5 % (42.0-52.0); Hemoglobin 13.9 g/dL (14.1-18.0); Lymphocytes # 2.3 K/mm3 (0.7-4.5); Lymphocytes % 15.9 % (10-50); Mean Corpuscular HGB Conc 32.8 g/dL (31.8-35.4); Mean Corpuscular Hemoglobin 31.1 pg (27.0-31.2); Mean Corpuscular Volume 94.8 fl (80-94); Mean Platelet Volume 7.5 fl (7.4-10.4); Monocytes # 0.8 K/mm3 (0.1-1.0); Monocytes % 5.2 % (1.7-9.3); Neutrophils # 11.2 K/mm3 (1.8-7.8); Platelet Count 334 K/mm3 (142-424); Red Blood Count 4.48 M/mm3 (4.60-6.20); Red Cell Distribution Width 14.6 % (11.5-17.5); White Blood Count 14.5 K/mm3 (4.8-10.8)
[2020-12-16 15:42] LABS: Ethyl Alcohol < 10 mg/dl (0-10)
--- NOTE | 2020-12-16 16:00 | ECG_ITS ---
APPROVED REPORT Exam: Resting ECG HR:102 bpm ECG Measurements Heart Rate 102 AXES VT 206 P 78 QRSd 72 QRS 79 QT 318 T 82 QTc 414 Conclusion Sinus tachycardia Septal infarct, age undetermined Abnormal ECG Electronically signed by : Shankar Raya, 12/17/2020 22:12:00
[2020-12-16 16:13] LABS: Potassium 4.9 mmoL/L (3.5-5.1)
[2020-12-16 16:15] LABS: Amylase 141 U/L (30-110)
[2020-12-16 16:16] LABS: Albumin Level 4.2 g/dl (3.5-5.0); Albumin/Globulin Ratio 1.1 (1.1-1.8); Anion Gap 16.9 mEq/L (5-15); Aspartate Amino Transferase 24 U/L (17-59); Carbon Dioxide 26 mmol/L (22.0-30.0); Globulin 3.9 g/dL (1.3-3.2); Total Protein,Serum 8.1 g/dl (6.3-8.2)
[2020-12-16 16:30] VITALS: BP 125/71; PULSE 103; O2SAT 100
--- NOTE | 2020-12-16 16:33 | PC.NURSE ---
been waiting on labs for ct scan since 15:00
[2020-12-16 16:40] LABS: Troponin I < 0.01 ng/ml (0.00-0.034)
[2020-12-16 16:43] LABS: Lipase 613 U/L (23-300)
--- NOTE | 2020-12-16 16:49 | PC.NURSE ---
patient to CT
[2020-12-16 16:53] LABS: Microscopic, Urine URINE MICROSCOPIC (MICROSCOPIC)
[2020-12-16 17:02] LABS: Appearance,Urine CLEAR (Clear); Bilirubin,Urine Negative (Negative); Blood, Urine Negative (Negative); Color,Urine YELLOW (Yellow); Glucose,Urine (UA) Negative (Negative); Ketones,Urine Negative (Negative); Leukocyte Esterase,Urine Negative (Negative); Nitrate,Urine Negative (Negative); Protein,Urine Negative (Negative); Urobilinogen,Urine 0.2 EU/dl (0.2)
[2020-12-16 17:17] LABS: Coronavirus 19, PCR Not Detected (NotDetected); Influenza A, PCR Not Detected (NotDetected); Influenza B, PCR Not Detected (NotDetected)
[2020-12-16 17:26] LABS: Amorphous Sediment,Urine 1+ /lpf
[2020-12-16 17:33] LABS: Amphetamine/Metha Screen,Urine Negative ng/ml (<1000)
[2020-12-16 17:34] LABS: Barbiturates Screen,Urine Negative ng/ml (<200); Benzodiazepines Screen,Urine Negative ng/ml (<200)
[2020-12-16 17:35] LABS: Cannabinoid Screen,Urine Negative ng/ml (<50); Cocaine Screen,Urine Negative ng/ml (<300)
[2020-12-16 17:36] LABS: Methadone Screen,Urine Negative ng/ml (<300)
[2020-12-16 17:37] LABS: Phencyclidine Screen,Urine Negative ng/ml (<25)
[2020-12-16 17:53] LABS: Opiate Screen,Urine Positive ng/ml (<300)
--- NOTE | 2020-12-16 18:09 | PC.NURSE ---
report called to CANDIS Clayton
[2020-12-16 18:15] LABS: Magnesium 1.3 mg/dl (1.6-2.3); Phosphorous 5.2 mg/dl (2.5-4.5)
[2020-12-16 18:18] LABS: Activated Partial Thrombo Time 32.5 seconds (22.8-30.6); Prothrombin Time 11.4 seconds (10.1-12.5)
[2020-12-16 18:24] LABS: INR 0.96 (0.9-1.1)
[2020-12-16 18:37] VITALS: BP 129/63; PULSE 101; RESP 20; TEMP 36.8; O2SAT 95
[2020-12-16 18:38] VITALS: BP 112/67; PULSE 103; RESP 18; TEMP 37.2; O2SAT 98; BMI 21.7
[2020-12-16 20:00] VITALS: BP 125/69; PULSE 97; RESP 16; TEMP 36.6; O2SAT 98
[2020-12-16 21:35] LABS: POC Glucose,Bedside 52 (70-110)
[2020-12-16 21:47] LABS: POC Glucose,Bedside 146 (70-110)
--- NOTE | 2020-12-17 03:42 | PC.NURSE ---
Patient is alert and oriented x4. CIWA score remains 0 thus far in the shift. Patient has rested well throughout the night. He is NPO. At the beginning of the shift his FSBS was 52. MD was notified & new orders where obtained. Patient states his last BM was 12/15. Expiratory rhonchi are noted in bilateral bases, throughout his lung sounds are clear and diminished. Bowel sounds are active and abdomen is tender when palpated. Home meds are locked in the drawer. Vital signs are stable, will continue to monitor.
[2020-12-17 04:00] VITALS: BP 115/69; PULSE 105; RESP 18; TEMP 36.3; O2SAT 96
[2020-12-17 05:00] VITALS: BMI 21.7
[2020-12-17 06:12] LABS: POC Glucose,Bedside 81 (70-110)
[2020-12-17 06:33] LABS: Lipase 207 U/L (23-300)
--- NOTE | 2020-12-17 07:43 | HMH.PHAVTE ---
[facility] VTE Monitoring - Patient Demographics Admission date: 12/16/20 Report Date: 12/17/20 Time: 07:43 Allergies/Adverse Reactions: Patient Allergies No Known Allergies Allergy (Verified 04/30/18 11:22) Height: 1.73 m Weight: 65.062 kg Patient Problems: Current Active Problems Alcoholism (Chronic) Acute alcoholic pancreatitis (Acute) - VTE Risk Labs: VTE Related Lab Results Hgb 13.9 g/dL (14.1-18.0) L 12/16/20 15:01 Hct 42.5 % (42.0-52.0) 12/16/20 15:01 Plt Count 334 K/mm3 (142-424) 12/16/20 15:01 PT 11.4 seconds (10.1-12.5) 12/16/20 15:01 INR 0.96 (0.9-1.1) 12/16/20 15:01 APTT 32.5 seconds (22.8-30.6) H 12/16/20 15:01 BUN 26 mg/dl (9-20) H 12/16/20 15:01 Creatinine 1.50 mg/dl (0.66-1.25) H 12/16/20 15:01 Estimated Creat Clear 47 mL/min (50-200) 12/16/20 15:01 - Prophylaxis VTE Prophylaxis Ordered?: Yes Types of VTE Prophylaxis: TEDS Knee High Location of Applied Device: Bilateral Lower Extremeties
[2020-12-17 08:00] VITALS: BP 116/71; PULSE 100; RESP 20; TEMP 36.6; O2SAT 96
--- NOTE | 2020-12-17 08:13 | HMH.PHAINT ---
MEDICATION RECONCILIATION COMPLETED ON PATIENT USING EXTERNAL FILL HISTORY FROM PHARMACY. -MATHEUS MCGRAW, CRYSTALD
--- NOTE | 2020-12-17 08:40 | HMH.HP ---
*Admission Date: 12/16/20 *Chief complaint: Abdominal pain and nausea *History of present illness: 65-year-old white male with long history of recurrent alcoholism, mood disorder and recurrent/chronic pancreatitis. He has been admitted multiple times for pancreatitis, prerenal azotemia, dehydration and uremia, and in September was found to have a pancreatic cyst/mass with elevated CA 19-9 and referral was initiated to GI oncology/pancreatic surgery at [facility] with Dr. Catalan, but apparently patient has never been to that appointment. Apparently the appointment was made by our office but patient simply did not go based on his own choosing. He had been feeling a little better, at his last admission had been prescribed naltrexone but has apparently stopped taking this and 3 days ago was drinking heavily. Began to have abdominal pain, culminated in his arrival in the emergency department yesterday, he was found to have mild pancreatitis, kidney function was however essentially normal compared to his baseline he was admitted to hospital for IV fluids and pain control. [facility] History I have reviewed the patient's past medical history: Yes Medical History: Reports:: Anxiety, Asthma, Cancer (Colon They said they got it all. ), Chronic Obstructive Pulmonary Disease (COPD), Diabetes Mellitus Type 2, Hyperlipidemia, Hypertension, Lung Disease (copd, asthma) Denies:: Diabetes Mellitus Type 1, Internal Pacemaker, MRSA, Seizures *Have you ever received a pneumonia vaccine?: No *Have you received a flu vaccine this season?: No Other Medical History: Reports: Arthritis, Hypothyroidism, Other (gout). Denies: Blood Transfusion Reaction Laterality Cases: Bilateral: Other Other Surgeries: Yes: Cancer Surgery, Colonoscopy, Colon Resection, Colostomy, EGD, Other (prostatectomy). No: Pacemaker Amputation: No Fractures: No - *Social History Last grade of school completed: 9th or 10th Smoking Status: Current every day smoker Tobacco Type: cigarettes # Packs/Day (cigarettes): 1 Alcohol Intake: current Alcohol Intake Frequency:: 3 or more drinks per day Substance Use Type: marijuana *Occupational Status:: retired Housing: house Household Members: none *Travel in the last 8 weeks: None - Psychiatric History Pschychiatric History:: Reports:: Anxiety Family Hx:: No significant family history Review of Systems - Review of Systems Review of systems:: pertinent systems reviewed and negative unless documented below Meds Home Medications Medication Instructions Recorded Confirmed Type Albuterol Sulfate [Ventolin HFA 2 puffs IH Q6HP PRN 05/16/18 12/16/20 History Inhaler] Aspirin [Aspirin 325mg Tab] 325 mg PO DAILY 05/16/18 12/16/20 History Duloxetine HCl [Cymbalta] 30 mg PO DAILY 05/16/18 12/16/20 History Potassium Chloride 20 meq PO DAILY 05/16/18 12/16/20 History Simvastatin 40 mg PO HS 05/16/18 12/16/20 History allopurinoL [Allopurinol 100mg 100 mg PO BID 05/16/18 12/16/20 History tablet] Fluticasone/Umeclidin/Vilanter 1 puff IH DAILY 10/06/20 12/17/20 History [Letty Ellipta 100-62.5-25] Glimepiride [Amaryl 2mg tablet] 2 mg PO DAILY 10/06/20 12/16/20 History Meloxicam 15 mg PO DAILY 10/06/20 12/16/20 History Metformin HCl [Metformin 1000mg 1,000 mg PO BIDWMEAL 10/06/20 12/17/20 History Tablets] Omeprazole Magnesium [Prilosec Otc 20 mg PO DAILY 10/06/20 12/16/20 History 20mg Tab] Tamsulosin HCl [Flomax 0.4mg 0.4 mg PO DAILY 10/06/20 12/16/20 History capsule] Quetiapine Fumarate [Seroquel Xr] 200 mg PO HS 10/07/20 12/16/20 History Magnesium 250 mg PO DAILY 12/16/20 12/16/20 History Naltrexone HCl 100 mg PO DAILY 12/16/20 12/16/20 History Thiamine HCl [Vitamin B-1 100mg 100 mg PO DAILY 12/16/20 12/16/20 History tablet] Allergies Allergy/AdvReac Type Severity Reaction Status Date / Time No Known Allergies Allergy Verified 04/30/18 11:22 Exam Vital signs and Labs for Last 24 Hours: Temp P
[2020-12-17 11:39] LABS: POC Glucose,Bedside 154 (70-110)
[2020-12-17 13:58] VITALS: BMI 21.7
[2020-12-17 16:00] VITALS: BP 118/70; PULSE 98; RESP 20; TEMP 36.7; O2SAT 97
--- NOTE | 2020-12-17 17:48 | PC.NURSE ---
Pt has been pleasant and cooperative this shift. A&O X4. No complaints of pain or SOA. Pt is on room air with sats. >90%. Lungs CTA. No edema noted. Skin is C/D/I. Pt ambulates to/from the bathroom and throughout the room independently. Abdomen is flat, soft, and non-tender. Pt is tolerating a clear liquid diet well and has eaten 100% of every meal. No BM this shift. 20 G peripheral IV in the RT AC is patent and infusing NS @ 125 ML/HR. FSBS results have been 154 and 239. CIWA scores have been 0. VSS. Call light within reach. Will continue to monitor.
[2020-12-17 18:03] LABS: POC Glucose,Bedside 239 (70-110)
[2020-12-17 19:50] VITALS: BP 130/80; PULSE 93; RESP 20; TEMP 36.8; O2SAT 99
[2020-12-17 20:35] VITALS: O2SAT 98
[2020-12-17 21:10] LABS: POC Glucose,Bedside 168 (70-110)
--- NOTE | 2020-12-18 03:29 | PC.NURSE ---
PT HAS BEEN PLEASANT AND HAS RESTED COMFORTABLY THIS SHIFT. HE IS A&O X4. CIWA SCORES HAVE REMAINED 0 THROUGHOUT SHIFT AT THIS POINT. PATIENT IS TOLERATING CLEAR LIQUID DIET WELL. HE AMBULATES INDEPENDENTLY AND WITHOUT DIFFICULTY. IV IN PATENT AND INFUSING WELL. LUNGS REMAINS CTAB AND PT IS FREE OF EDEMA. ABDOMEN IS TENDER TO PALPATION AT THIS TIME. PATIENT RATES DISCOMFORT 3/10 WHEN BEING PALPATED. CALL LIGHT IS WITHIN REACH. WILL CONTINUE TO MONITOR.
[2020-12-18 03:47] VITALS: BP 145/90; PULSE 101; RESP 18; TEMP 36.7; O2SAT 98
[2020-12-18 04:59] VITALS: BMI 22.6
[2020-12-18 06:05] LABS: POC Glucose,Bedside 127 (70-110)
[2020-12-18 06:51] LABS: Basophils # 0.1 K/mm3 (0-0.2); Eosinophils # 0.3 K/mm3 (0.0-0.4); Eosinophils % 6.2 % (0.1-12.0); Hematocrit 33.1 % (42.0-52.0); Hemoglobin 10.9 g/dL (14.1-18.0); Lymphocytes # 1.9 K/mm3 (0.7-4.5); Lymphocytes % 38.1 % (10-50); Mean Corpuscular HGB Conc 32.8 g/dL (31.8-35.4); Mean Corpuscular Hemoglobin 31.3 pg (27.0-31.2); Mean Corpuscular Volume 95.4 fl (80-94); Mean Platelet Volume 7.8 fl (7.4-10.4); Monocytes # 0.5 K/mm3 (0.1-1.0); Monocytes % 9.2 % (1.7-9.3); Neutrophils # 2.3 K/mm3 (1.8-7.8); Neutrophils % 45.5 % (37.0-80.0); Platelet Count 311 K/mm3 (142-424); Red Blood Count 3.47 M/mm3 (4.60-6.20); Red Cell Distribution Width 14.4 % (11.5-17.5); White Blood Count 5.1 K/mm3 (4.8-10.8)
[2020-12-18 07:05] LABS: Alanine Aminotransferase 13 U/L (12-78); Albumin Level 2.8 g/dl (3.5-5.0); Alkaline Phosphatase 86 U/L (38-126); Anion Gap 10.5 mEq/L (5-15); Aspartate Amino Transferase 24 U/L (17-59); Bilirubin,Total 0.3 mg/dl (0.2-1.3); Carbon Dioxide 24 mmol/L (22.0-30.0); Chloride 107 mmol/L (98-107); Creatinine Clearance Estimated 64 mL/min (50-200); Estimated Glomerular Filt Rate 67 ml/min (>60); GFR (African American) 81 ML/MIN (>60); Globulin 2.8 g/dL (1.3-3.2); Glucose 135 mg/dl (74-100); Magnesium 1.3 mg/dl (1.6-2.3); Potassium 5.5 mmoL/L (3.5-5.1); Sodium 136 mmol/L (136-145)
[2020-12-18 07:50] VITALS: BP 123/69; PULSE 97; RESP 17; TEMP 36.1; O2SAT 98
--- NOTE | 2020-12-18 07:57 | HMH.ACPN2 ---
Internal Medicine - PN: Subj *Date: 12/18/20 *Time: 13:38 Interval history: overall doing better. Tolerating intake without pain however did not like liquid diet choices. Will advance diet today. Patient seems pleased with this. Denies any acute abdominal pain, nausea, vomiting. Having bowel movements. No fevers overnight. Reviewed labs from this morning. Exam Vital signs and Labs for Last 24 Hours: Temp Pulse Resp BP Pulse Ox 97.0 F L 97 H 17 123/69 98 12/18/20 07:50 12/18/20 07:50 12/18/20 07:50 12/18/20 07:50 12/18/20 07:50 Laboratory Results - last 24 hr 12/17/20 11:06: POC Glucose 154 H 12/17/20 17:08: POC Glucose 239 H 12/17/20 19:56: POC Glucose 168 H 12/18/20 05:56: POC Glucose 127 H 12/18/20 06:07: WBC 5.1 D, RBC 3.47 L, Hgb 10.9 L, Hct 33.1 L, MCV 95.4 H, MCH 31.3 H, MCHC 32.8, RDW 14.4, Plt Count 311, MPV 7.8, Neut % (Auto) 45.5, Lymph % (Auto) 38.1, [place] % (Auto) 9.2, Eos % (Auto) 6.2, Baso % (Auto) 1.0, Neut # (Auto) 2.3, Lymph # (Auto) 1.9, [place] # (Auto) 0.5, Eos # (Auto) 0.3, Baso # (Auto) 0.1 12/18/20 06:07: Sodium 136, Potassium 5.5 H, Chloride 107, Carbon Dioxide 24, Anion Gap 10.5, BUN 11 D, Creatinine 1.10 D, Estimated Creat Clear 64, Estimated GFR 67, Est GFR ( Amer) 81 D, Glucose 135 H, Magnesium 1.3 L, Total Bilirubin 0.3, AST 24, ALT 13, Alkaline Phosphatase 86, Total Protein 5.6 L D, Albumin 2.8 L, Globulin 2.8, Albumin/Globulin Ratio 1.0 L I & O for Last 24 hours: Intake & Output 12/15/20 12/16/20 12/17/20 12/18/20 23:59 23:59 23:59 23:59 Intake Total 2860 / 2860 360 / 360 Balance 2860 / 2860 360 / 360 Weight 64.665 kg 65 kg 67.84 kg Narrative: - Constitutional no acute distress, chronically ill appearing - *Routine HEENT Exam Head: Present: normocephalic Eye: Present: EOMI, PERRL ENT: Present: mucous membranes moist - *Routine Neck Exam Present: supple. Absent: lymphadenopathy - *Routine Respiratory Exam Present: CTA bilaterally - *Routine Cardiovascular Exam Present: RRR - *Routine Abdominal Exam Present: soft, tenderness (Upper epigastric tenderness. No periumbilical or flank bruising) - *Routine Extremities Exam Absent: cyanosis, clubbing, edema - *Routine Skin Exam Present: warm. Absent: rash - *Routine Neurological Exam Present: alert, oriented X3 Assessment and Plan (1) Acute alcoholic pancreatitis Status: Acute Qualifiers: Acute pancreatitis complication: no infection or necrosis Qualified Code(s): K85.20 - Alcohol induced acute pancreatitis without necrosis or infection Category: Medical Code(s): K85.20 - Alcohol induced acute pancreatitis without necrosis or infection (2) Alcoholism Status: Chronic Category: Medical Code(s): F10.20 - Alcohol dependence, uncomplicated (3) [place] (acute kidney injury) Status: Resolved Category: Medical Code(s): N17.9 - Acute kidney failure, unspecified (4) COPD (chronic obstructive pulmonary disease) Problem details: Qualifies for home oxygen. This will be set up. Status: Chronic Qualifiers: COPD type: COPD with acute exacerbation Qualified Code(s): J44.1 - Chronic obstructive pulmonary disease with (acute) exacerbation Category: Medical Code(s): J44.9 - Chronic obstructive pulmonary disease, unspecified (5) Chronic alcohol abuse Status: Chronic Category: Medical Code(s): F10.10 - Alcohol abuse, uncomplicated (6) HTN (hypertension) Status: Chronic Qualifiers: Hypertension type: essential hypertension Qualified Code(s): I10 - Essential (primary) hypertension Category: Medical Code(s): I10 - Essential (primary) hypertension (7) Illiteracy Status: Chronic Category: Social Hx Code(s): Z55.0 - Illiteracy and low-level literacy Complicates all aspects of his care (8) Tobacco use disorder Status: Chronic Category: Medical Code(s): F17.200 - Nicotine dependence, unspecified, uncomplicated (9)
[2020-12-18 08:00] VITALS: PULSE 97; RESP 17; O2SAT 98
[2020-12-18 10:54] LABS: Blood Urea Nitrogen 11 mg/dl (9-20)
[2020-12-18 10:55] LABS: Total Protein,Serum 5.6 g/dl (6.3-8.2)
[2020-12-18 11:17] LABS: POC Glucose,Bedside 244 (70-110)
[2020-12-18 15:07] VITALS: BP 144/87; PULSE 91; RESP 15; TEMP 36.4; O2SAT 98
[2020-12-18 16:50] LABS: POC Glucose,Bedside 198 (70-110)
--- NOTE | 2020-12-18 17:37 | PC.NURSE ---
Pt has been pleasant and cooperative this shift. A&O X4. Pt has complained of abdominal pain X1 thus far this shift and has been medicated with Morphine per MAR. Pt is on room air with sats. >90%. Lungs CTA. No edema noted. Skin is C/D/I. Pt ambulates to/from the bathroom and throughout the room independently. Pt has sat up in the recliner intermittently and has also walked in the hallway. Abdomen is flat, soft, and non-tender. Pt is tolerating a full liquid diet well and has eaten 100% of every meal. No BM this shift. 20 G peripheral IV in the RT AC is patent and infusing NS @ 125 ML/HR. FSBS results have been 244 and 198. CIWA scores have been 3, 0, and 0. VSS. Call light within reach. Will continue to monitor.
[2020-12-18 19:54] VITALS: BP 154/92; PULSE 89; RESP 16; TEMP 36.4; O2SAT 100
[2020-12-18 20:00] VITALS: O2SAT 100
[2020-12-18 21:23] LABS: POC Glucose,Bedside 280 (70-110)
[2020-12-19 03:55] VITALS: BP 134/82; PULSE 96; RESP 16; TEMP 36.6; O2SAT 96
--- NOTE | 2020-12-19 04:25 | PC.NURSE ---
Patient has had an uneventful night this shift. CIWA 0 - administered pain medication x 1. Call light within reach, bed at lowest level for safety, no s/s of acute distress noted at this time; will continue to monitor.
[2020-12-19 05:00] VITALS: BMI 22.1
[2020-12-19 06:09] LABS: POC Glucose,Bedside 93 (70-110)
[2020-12-19 07:05] LABS: Alanine Aminotransferase 18 U/L (12-78); Albumin Level 2.8 g/dl (3.5-5.0); Alkaline Phosphatase 102 U/L (38-126); Anion Gap 11.9 mEq/L (5-15); Aspartate Amino Transferase 24 U/L (17-59); Bilirubin,Total 0.3 mg/dl (0.2-1.3); Blood Urea Nitrogen 6 mg/dl (9-20); Calcium 8.1 mg/dl (8.4-10.2); Carbon Dioxide 24 mmol/L (22.0-30.0); Chloride 106 mmol/L (98-107); Creatinine Clearance Estimated 69 mL/min (50-200); Estimated Glomerular Filt Rate 75 ml/min (>60); GFR (African American) 91 ML/MIN (>60); Globulin 2.9 g/dL (1.3-3.2); Glucose 111 mg/dl (74-100); Magnesium 1.1 mg/dl (1.6-2.3); Potassium 4.9 mmoL/L (3.5-5.1); Sodium 137 mmol/L (136-145); Total Protein,Serum 5.7 g/dl (6.3-8.2)
[2020-12-19 07:21] LABS: Basophils # 0.1 K/mm3 (0-0.2); Basophils % 1.1 % (0.1-2.0); Eosinophils # 0.3 K/mm3 (0.0-0.4); Eosinophils % 5.1 % (0.1-12.0); Hematocrit 32.6 % (42.0-52.0); Hemoglobin 10.6 g/dL (14.1-18.0); Lymphocytes # 1.9 K/mm3 (0.7-4.5); Lymphocytes % 31.7 % (10-50); Mean Corpuscular HGB Conc 32.6 g/dL (31.8-35.4); Mean Corpuscular Hemoglobin 30.7 pg (27.0-31.2); Mean Corpuscular Volume 94.4 fl (80-94); Mean Platelet Volume 7.6 fl (7.4-10.4); Monocytes # 0.5 K/mm3 (0.1-1.0); Monocytes % 8.1 % (1.7-9.3); Neutrophils # 3.2 K/mm3 (1.8-7.8); Platelet Count 335 K/mm3 (142-424); Red Blood Count 3.46 M/mm3 (4.60-6.20); Red Cell Distribution Width 14.4 % (11.5-17.5)
[2020-12-19 08:00] VITALS: BP 134/77; PULSE 96; PULSE 99; RESP 15; TEMP 36.8; O2SAT 98
--- NOTE | 2020-12-19 08:43 | HMH.DCSUM ---
General - General Admission date:: 12/16/20 Discharge date: 12/19/20 HPI HPI: 65-year-old white male with long history of recurrent alcoholism, mood disorder and recurrent/chronic pancreatitis. He has been admitted multiple times for pancreatitis, prerenal azotemia, dehydration and uremia, and in September was found to have a pancreatic cyst/mass with elevated CA 19-9 and referral was initiated to GI oncology/pancreatic surgery at [facility] with Dr. Catalan, but apparently patient has never been to that appointment. Apparently the appointment was made by our office but patient simply did not go based on his own choosing. He had been feeling a little better, at his last admission had been prescribed naltrexone but has apparently stopped taking this and 3 days ago was drinking heavily. Began to have abdominal pain, culminated in his arrival in the emergency department yesterday, he was found to have mild pancreatitis, kidney function was however essentially normal compared to his baseline he was admitted to hospital for IV fluids and pain control. Hospital Course Hospital Course: Patient was admitted, placed n.p.o. and then slowly diet was advanced, pain improved in a stepwise fashion. Patient this morning was doing well, wanted to eat some solid food. No further vomiting or diarrhea. Mental status was unremarkable and at baseline. Patient continues to decline rehab programs, or referral to GI for his suspicious pancreatic cyst. Patient will be discharged home. He will use Tylenol for pain. Once again, encouraged not to drink alcohol and the deleterious and potentially fatal consequences of resuming alcohol use were discussed and patient acknowledges this. We will arrange short-term follow-up in our office. Objective Vital signs: Temp Pulse Resp BP Pulse Ox 98.3 F 99 H 15 134/77 98 12/19/20 08:00 12/19/20 08:00 12/19/20 08:00 12/19/20 08:00 12/19/20 08:00 no acute distress - *Routine HEENT Exam Head: Present: normocephalic Eye: Present: EOMI, PERRL ENT: Present: mucous membranes moist - *Routine Neck Exam Present: supple - *Routine Respiratory Exam Present: CTA bilaterally - *Routine Cardiovascular Exam Present: RRR - *Routine Abdominal Exam Present: soft, normoactive bowel sounds, tenderness (Very minimal epigastric tenderness.) - *Routine Extremities Exam Absent: cyanosis, clubbing, edema - *Routine Skin Exam Present: warm. Absent: rash - Detailed Eye Exam Eyelids: Bilateral normal inspection Results Labs on day of discharge: Labs from last 24 hours 12/19/20 12/19/20 12/19/20 06:26 06:26 05:30 WBC 6.0 RBC 3.46 L Hgb 10.6 L Hct 32.6 L MCV 94.4 H MCH 30.7 MCHC 32.6 RDW 14.4 Plt Count 335 MPV 7.6 Neut % (Auto) 54.0 Lymph % (Auto) 31.7 [place] % (Auto) 8.1 Eos % (Auto) 5.1 Baso % (Auto) 1.1 Neut # (Auto) 3.2 Lymph # (Auto) 1.9 [place] # (Auto) 0.5 Eos # (Auto) 0.3 Baso # (Auto) 0.1 Sodium 137 Potassium 4.9 Chloride 106 Carbon Dioxide 24 Anion Gap 11.9 BUN 6 L D Creatinine 1.00 Estimated Creat Clear 69 Estimated GFR 75 Est GFR ( Amer) 91 Glucose 111 H POC Glucose 93 Calcium 8.1 L Magnesium 1.1 L D Total Bilirubin 0.3 AST 24 ALT 18 D Alkaline Phosphatase 102 Total Protein 5.7 L Albumin 2.8 L Globulin 2.9 Albumin/Globulin Ratio 1.0 L 12/18/20 12/18/20 12/18/20 21:10 16:37 10:55 WBC RBC Hgb Hct MCV MCH MCHC RDW Plt Count MPV Neut % (Auto) Lymph % (Auto) [place] % (Auto) Eos % (Auto) Baso % (Auto) Neut # (Auto) Lymph # (Auto) [place] # (Auto) Eos # (Auto) Baso # (Auto) Sodium Potassium Chloride Carbon Dioxide Anion Gap BUN Creatinine Estimated Creat Clear Estimated GFR Est GFR ( Amer) Glucose
== END 2020-12-19 10:20 | disposition home or self-care (01) | DRG 438 ==
LOC: ER 17:26 → 2ND 17:41
PROVIDERS: Internal Medicine Adolescent Medicine; Admitting Provider Family Medicine; Emergency Provider Emergency Medicine; PCP Internal Medicine Adolescent Medicine; Visit Provider Internal Medicine Adolescent Medicine
DX: K85.20 Alcohol induced acute pancreatitis without necrosis or infection (principal); E43 Unspecified severe protein-calorie malnutrition; N17.9 Acute kidney failure, unspecified; F10.20 Alcohol dependence, uncomplicated; J44.9 Chronic obstructive pulmonary disease, unspecified; Z20.822 Contact with and (suspected) exposure to COVID-19; I10 Essential (primary) hypertension; Z68.22 Body mass index [BMI] 22.0-22.9, adult; E11.9 Type 2 diabetes mellitus without complications; F32.9 Major depressive disorder, single episode, unspecified; Z85.038 Personal history of other malignant neoplasm of large intestine; E78.5 Hyperlipidemia, unspecified; E03.9 Hypothyroidism, unspecified; F17.210 Nicotine dependence, cigarettes, uncomplicated; Z79.84 Long term (current) use of oral hypoglycemic drugs; F41.9 Anxiety disorder, unspecified; Z91.19 Patient's noncompliance with other medical treatment and regimen; F39 Unspecified mood [affective] disorder
CPT/HCPCS: 36415; 71046; 74177; 80053; 80305; 81001; 82150; 82962; 83690; 83735; 84100; 84484; 85025; 85610; 85730; 93005; 94640; 96365; 96367; 96375; 99282; J2405; Q9967; U0003

== ENCOUNTER 2021-07-19 15:13 | Observation (INO) | payer MEDICARE, OTHER, SELFPAY ==
[2021-07-19 15:17] VITALS: BMI 19.8
--- NOTE | 2021-07-19 15:25 | CT_ITS ---
FINAL REPORT CLINICAL HISTORY: abdominal pain, wt loss COMPARISON: December 16, 2020 FINDINGS: Axial CT images of the abdomen and pelvis were obtained without intravenous contrast. Coronal reformatted images were also obtained.This study was performed with techniques to keep radiation doses as low as reasonably achievable (ALARA). Individualized dose reduction techniques using automated exposure control or adjustment of mA and/or kV according to the patient's size were employed. Abdomen: There is no evidence of renal stone or hydronephrosis. There is a partially collapsed gallbladder with significant wall thickening. There are multiple pancreatic calcifications consistent with chronic pancreatitis. The liver and spleen have an unremarkable, unenhanced appearance. There is diffuse vascular calcification. There is a moderate amount of retained stool. Pelvis: Images of the pelvis reveal no evidence of ureteral dilation or ureteral stone.No mass or abnormal fluid collection is identified. There are postoperative changes from prostatectomy. IMPRESSION: Partially collapsed gallbladder with significant wall thickening. This could be further evaluated with right upper quadrant ultrasound and nuclear medicine hepatic biliary scan. Moderate retained stool. Chronic pancreatitis. Reviewed, Interpreted and Dictated by Niko Glez III, MD Transcribed by Abdias Negron Authenticated by Niko Glez III, MD on 07/19/2021 04:52:00 PM [facility]
--- NOTE | 2021-07-19 15:25 | CT_ITS ---
FINAL REPORT CLINICAL HISTORY: short of breath, crackles FINDINGS: Axial images were obtained from the lung apex to the mid abdomen by computed tomography. Coronal reformatted images were obtained. This study was performed with techniques to keep radiation doses as low as reasonably achievable, (ALARA). Individualized dose reduction techniques using automated exposure control or adjustment of mA and/or kV according to the patient's size were employed. There is no axillary adenopathy. There is no hilar or mediastinal adenopathy. Heart size is normal. There is no pericardial or pleural effusion. There are moderate to severe changes of emphysema. There is mild scarring. There are several calcified granulomas in the left lung. There is a 6 mm nodule in the posterior right upper lobe. There are several less than 5 mm right lower lobe nodules. There is diffuse bronchial wall thickening consistent with bronchitis. IMPRESSION: Diffuse bronchial wall thickening consistent with bronchitis. Multiple noncalcified right lobe nodules up to 6 mm. Recommend six-month follow-up CT. Reviewed, Interpreted and Dictated by Niko Glez III, MD Transcribed by Abdias Negron Authenticated by Niko Glez III, MD on 07/19/2021 04:51:55 PM [facility]
--- NOTE | 2021-07-19 15:35 | P.CONPHA_ITS ---
[facility] Pharmacy VTE Monitoring - Patient Demographics Admission date: 07/19/21 Report Date: 07/19/21 Time: 15:35 Allergies/Adverse Reactions: Patient Allergies No Known Allergies Allergy (Verified 04/30/18 11:22) - Prophylaxis VTE Prophylaxis Ordered?: Yes Types of VTE Prophylaxis: TEDS Knee High Location of Applied Device: Bilateral Lower Extremeties
[2021-07-19 15:36] VITALS: BP 113/63; PULSE 103; RESP 16; TEMP 37; O2SAT 97
[2021-07-19 15:57] LABS: Coronavirus 19, PCR Not Detected (NotDetected); Influenza A, PCR Not Detected (NotDetected); Influenza B, PCR Not Detected (NotDetected)
[2021-07-19 16:28] LABS: Basophils % 0.7 % (0.1-2.0); Eosinophils # 0.1 K/mm3 (0.0-0.4); Eosinophils % 1.2 % (0.1-12.0); Hematocrit 39.8 % (42.0-52.0); Hemoglobin 13.3 g/dL (14.1-18.0); Lymphocytes # 1.6 K/mm3 (0.7-4.5); Lymphocytes % 32.3 % (10-50); Mean Corpuscular HGB Conc 33.5 g/dL (31.8-35.4); Mean Corpuscular Volume 98.6 fl (80-94); Mean Platelet Volume 7.9 fl (7.4-10.4); Monocytes # 0.2 K/mm3 (0.1-1.0); Monocytes % 4.5 % (1.7-9.3); Neutrophils # 3.1 K/mm3 (1.8-7.8); Neutrophils % 61.3 % (37.0-80.0); Platelet Count 206 K/mm3 (142-424); Red Blood Count 4.03 M/mm3 (4.60-6.20); Red Cell Distribution Width 12.6 % (11.5-17.5)
[2021-07-19 16:36] LABS: Alanine Aminotransferase 18 U/L (12-78); Albumin Level 3.9 g/dl (3.5-5.0); Albumin/Globulin Ratio 1.6 (1.1-1.8); Alkaline Phosphatase 76 U/L (38-126); Aspartate Amino Transferase 36 U/L (17-59); Bilirubin,Total 0.6 mg/dl (0.2-1.3); Blood Urea Nitrogen 12 mg/dl (9-20); Calcium 8.6 mg/dl (8.4-10.2); Carbon Dioxide 22 mmol/L (22.0-30.0); Chloride 96 mmol/L (98-107); Creatinine Clearance Estimated 43 mL/min (50-200); Estimated Glomerular Filt Rate 51 ml/min (>60); GFR (African American) 61 ML/MIN (>60); Globulin 2.4 g/dL (1.3-3.2); Glucose 111 mg/dl (74-100); Lipase 20 U/L (23-300); Magnesium 1.2 mg/dl (1.6-2.3); Sodium 127 mmol/L (136-145); Total Protein,Serum 6.3 g/dl (6.3-8.2)
--- NOTE | 2021-07-19 17:30 | PC.NURSE ---
No complaints since arriving to floor. Pt is A&Ox4. HR regular, slightly tachycardic. Lungs w/ scat wheezes, diminished throughout. Abdomen soft, tender to palpation, active BS in all quads. Voiding w/o difficulty. Ambulates independently w/o safety concerns. He is currently sitting on side of bed eating dinner. No needs voiced. Call levine w/in reach.
--- NOTE | 2021-07-19 18:22 | HMH.HP ---
*Admission Date: 07/19/21 *Chief complaint: tachycardia, hypotension *History of present illness: Mr. Rivero is a 66 yo man seen in Office today with a pmhx of alcoholism, pancreatic cysts, protein calorie malnutrition, and COPD presenting with orthostatic dizziness. He states the episodes have been coming and going for the past year, but recently he has been feeling worse. He denies abdominal pain, pain with or after eating, significant alcohol intake, decreased appetite, but does endorse feeling more depressed and anxious in the past year. Physical exam in office was significant for RUQ tenderness to palpation, distant heart sounds, absent breath sounds over the anterior chest, pleural rubs, and when breath sounds were heard, inspiratory squeaks and expiratory wheezes. Vital signs were 100/70 lying down and 70/50 standing with hr of 112 standing, and 99 lying down. Admitted for further management and work-up. Assessment after getting to floor, Pt is comfortable, in NAD. Denies nausea, CP, Abd pain, fever, emesis, constipation or diarrhea. Stable on RA. Daughter at bed side [facility] History I have reviewed the patient's past medical history: Yes Medical History: Reports:: Anxiety, Asthma, Cancer, Chronic Obstructive Pulmonary Disease (COPD), Coronary Artery Disease, Diabetes Mellitus Type 2, Hyperlipidemia, Hypertension, Lung Disease (copd, asthma) Denies:: Diabetes Mellitus Type 1, Internal Pacemaker, MRSA, Seizures *Have you ever received a pneumonia vaccine?: Yes *Have you received a flu vaccine this season?: Yes Other Medical History: Reports: Arthritis, Hypothyroidism, Other (gout). Denies: Blood Transfusion Reaction Laterality Cases: Bilateral: Other Other Surgeries: Yes: Cancer Surgery, Colonoscopy, Colon Resection, Colostomy, EGD, Other (prostatectomy). No: Pacemaker Amputation: No Fractures: No - *Social History Last grade of school completed: 9th or 10th Smoking Status: Current every day smoker Tobacco Type: cigarettes # Packs/Day (cigarettes): 1 Alcohol Intake: current Alcohol Intake Frequency:: a few times a week Substance Use Type: marijuana *Occupational Status:: disabled Housing: house Household Members: none *Travel in the last 8 weeks: None - Psychiatric History Pschychiatric History:: Reports:: Anxiety Family Hx:: Diabetes Review of Systems - Review of Systems Review of systems:: pertinent systems reviewed and negative unless documented below (14 point review of systems performed, pertinent positives and negatives as per HPI) Meds Home Medications Medication Instructions Recorded Confirmed Type Albuterol Sulfate [Ventolin HFA 2 puffs IH Q6HP PRN 05/16/18 07/19/21 History Inhaler] Aspirin [Aspirin 325mg Tab] 325 mg PO DAILY 05/16/18 07/19/21 History Duloxetine HCl [Cymbalta] 30 mg PO DAILY 05/16/18 07/19/21 History Simvastatin 40 mg PO HS 05/16/18 07/19/21 History Fluticasone/Umeclidin/Vilanter 1 puff IH DAILY 10/06/20 07/19/21 History [Trelegy Ellipta 100-62.5-25] Meloxicam 15 mg PO DAILY 10/06/20 07/19/21 History Metformin HCl [Metformin 1000mg 1,000 mg PO BIDWMEAL 10/06/20 07/19/21 History Tablets] Omeprazole Magnesium [Prilosec Otc 20 mg PO DAILY 10/06/20 07/19/21 History 20mg Tab] Quetiapine Fumarate [Seroquel Xr] 200 mg PO HS 10/07/20 07/19/21 History Naltrexone HCl 100 mg PO DAILY 12/16/20 07/19/21 History Thiamine HCl [Vitamin B-1 100mg 100 mg PO DAILY 12/16/20 07/19/21 History tablet] Allergies Allergy/AdvReac Type Severity Reaction Status Date / Time No Known Allergies Allergy Verified 07/19/21 16:27 Exam Vital signs and Labs for Last 24 Hours: Temp Pulse Resp BP Pulse Ox 98.6 F 103 H 16 113/63 97 07/19/21 15:36 07/19/21 15:36 07/19/21 15:36 07/19/21 15:36 07/19/21 15:36 Laboratory Results - last 24 hr 07/19/21 15:35: Lipase 20 L 07/19/21 15:35: WBC 5.0, RBC 4.03 L, Hgb 13.3 L, Hct 39.8 L, MCV 98.6 H, MCH 33.0 H, MCHC 33.5, RDW 1
[2021-07-19 20:00] VITALS: BP 114/58; PULSE 104; RESP 16; TEMP 36.8; O2SAT 94
[2021-07-19 22:06] LABS: POC Glucose,Bedside 195 (70-110)
[2021-07-20] VITALS: BP 105/56; PULSE 86; RESP 16; TEMP 36.9; O2SAT 92
[2021-07-20 04:00] VITALS: BP 114/70; PULSE 89; RESP 16; TEMP 36.6; O2SAT 96
[2021-07-20 06:01] LABS: Chloride 99 mmol/L (98-107); Sodium 126 mmol/L (136-145)
[2021-07-20 06:02] LABS: Potassium 4.3 mmoL/L (3.5-5.1)
[2021-07-20 06:05] LABS: Anion Gap 3.3 mEq/L (5-15); Blood Urea Nitrogen 13 mg/dl (9-20); Calcium 7.5 mg/dl (8.4-10.2); Carbon Dioxide 28 mmol/L (22.0-30.0); Creatinine Clearance Estimated 41 mL/min (50-200); Estimated Glomerular Filt Rate 47 ml/min (>60); GFR (African American) 57 ML/MIN (>60); Glucose 102 mg/dl (74-100)
[2021-07-20 06:16] LABS: Magnesium 2.5 mg/dl (1.6-2.3)
[2021-07-20 06:57] LABS: POC Glucose,Bedside 115 (70-110)
[2021-07-20 08:00] VITALS: BP 108/69; PULSE 90; PULSE 91; RESP 18; TEMP 36.7; O2SAT 96
--- NOTE | 2021-07-20 08:41 | HMH.DCSUM ---
General - General Admission date:: 07/19/21 Discharge date: 07/20/21 HPI HPI: Mr. Rivero is a 66 yo man seen in Office today with a pmhx of alcoholism, pancreatic cysts, protein calorie malnutrition, and COPD presenting with orthostatic dizziness. He states the episodes have been coming and going for the past year, but recently he has been feeling worse. He denies abdominal pain, pain with or after eating, significant alcohol intake, decreased appetite, but does endorse feeling more depressed and anxious in the past year. Physical exam in office was significant for RUQ tenderness to palpation, distant heart sounds, absent breath sounds over the anterior chest, pleural rubs, and when breath sounds were heard, inspiratory squeaks and expiratory wheezes. Vital signs were 100/70 lying down and 70/50 standing with hr of 112 standing, and 99 lying down. Admitted for further management and work-up. Assessment after getting to floor, Pt is comfortable, in NAD. Denies nausea, CP, Abd pain, fever, emesis, constipation or diarrhea. Stable on RA. Daughter at bed side Hospital Course Hospital Course: Patient was admitted. Labs showed evidence of mild hyponatremia and mild acute kidney injury. He was hydrated, magnesium was replaced, rally pack's were given because of his history of alcoholism. CT scan of chest, abdomen and pelvis were done because of his weight loss and generalized malaise and significant risk of malignancy, CT scan of chest showed scarring and previously noted pulmonary nodules with evidence of bronchitis with thickened bronchial alaniz on CT scan but no pneumonic infiltrate. Patient was started on azithromycin and ceftriaxone for community-acquired bronchopneumonia and did well with this overnight. CT of abdomen showed previously noted gallbladder disease with thickened wall and partially contracted gallbladder with no evidence of biliary ductal dilatation and evidence of chronic pancreatitis but no masses or evidence of GI disease otherwise. Overnight the patient did well, felt much better this morning and wished to be discharged home. He remains slightly hyponatremic this seems to be his baseline, possibly base from SIADH from lung inflammation. He states that he has been compliant with his medication at home and has no pains in his belly or chest and he ate 100% of his breakfast today. Plan will be to discharge home. Antibiotics for his bronchopneumonia, close follow-up in our office and reevaluation of his gallbladder situation with possible surgical referral if he is interested. Objective Vital signs: Temp Pulse Resp BP Pulse Ox 98.1 F 90 18 108/69 L 96 07/20/21 08:00 07/20/21 08:00 07/20/21 08:00 07/20/21 08:00 07/20/21 08:00 no acute distress - *Routine HEENT Exam Head: Present: normocephalic Eye: Present: EOMI, PERRL ENT: Present: mucous membranes moist - *Routine Neck Exam Present: supple - *Routine Respiratory Exam Present: rhonchi - *Routine Cardiovascular Exam Present: RRR - *Routine Abdominal Exam Present: soft, normoactive bowel sounds, tenderness Comments: Very mild epigastric tenderness. No periumbilical or flank bruising - *Routine Extremities Exam Absent: cyanosis, clubbing, edema - *Routine Skin Exam Present: warm. Absent: rash - Detailed Eye Exam Eyelids: Bilateral normal inspection Results Labs on day of discharge: Labs from last 24 hours 07/20/21 07/20/21 07/19/21 05:38 05:22 21:19 WBC RBC Hgb Hct MCV MCH MCHC RDW Plt Count MPV Neut % (Auto) Lymph % (Auto) [place] % (Auto) Eos % (Auto) Baso % (Auto) Neut # (Auto) Lymph # (Auto) [place] # (Auto) Eos # (Auto) Baso # (Auto) Sodium 126 L Potassium 4.3 Chloride 99 Carbon Dioxide 28 Anion Gap 3.3 L BUN 13 Creatinine 1.50 H Estimated Creat Clear 41 Estimated GFR 47 L Est GFR (
--- NOTE | 2021-07-20 09:09 | HMH.PHAINT ---
DISCHARGE MEDICATION COUNSELING PROVIDED. DISCUSSED SHORT-COURSE OF DEXAMETHASONE, AZITHROMYCIN, AND CEFDINIR. DISCUSSED POSSIBLE SIDE EFFECTS (UPSET STOMACH, INCREASED BLOOD SUGAR, INSOMNIA)AND HOW TO TAKE (WITH FOOD). PATIENT ENDORSED NO FURTHER QUESTIONS AT THIS TIME.
--- NOTE | 2021-07-20 10:10 | PC.NURSE ---
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
== END 2021-07-20 10:42 | disposition home or self-care (01) ==
PROVIDERS: Admitting Provider Internal Medicine Adolescent Medicine; PCP Internal Medicine Adolescent Medicine; Visit Provider Internal Medicine Adolescent Medicine
DX: R10.84 Generalized abdominal pain (principal); E11.9 Type 2 diabetes mellitus without complications; Z79.84 Long term (current) use of oral hypoglycemic drugs; Z79.51 Long term (current) use of inhaled steroids; Z79.899 Other long term (current) drug therapy; F10.10 Alcohol abuse, uncomplicated; E44.0 Moderate protein-calorie malnutrition; Z68.20 Body mass index [BMI] 20.0-20.9, adult; F17.210 Nicotine dependence, cigarettes, uncomplicated; I25.10 Atherosclerotic heart disease of native coronary artery without angina pectoris; I10 Essential (primary) hypertension; J44.1 Chronic obstructive pulmonary disease with (acute) exacerbation; N17.9 Acute kidney failure, unspecified; E87.1 Hypo-osmolality and hyponatremia; D53.9 Nutritional anemia, unspecified; K86.1 Other chronic pancreatitis; Z85.038 Personal history of other malignant neoplasm of large intestine; Z20.822 Contact with and (suspected) exposure to COVID-19
CPT/HCPCS: G0378; G0379; 36415; 71250; 74176; 80048; 80053; 82962; 83690; 83735; 85025; 94640; C9803; J0456; U0003; U0005

== ENCOUNTER 2022-03-25 14:11 | Inpatient (IN) | payer MEDICARE, OTHER, SELFPAY ==
[2022-03-25] VITALS (12 sets, daily range): BP systolic 99–117; BP diastolic 60–77; PULSE 86–127; RESP 16–20; TEMP 36.7–37.1; O2SAT 89–100; BMI 20.2; BMI 19.5
--- NOTE | 2022-03-25 14:20 | ECG_ITS ---
APPROVED REPORT Exam: Resting ECG HR:125 bpm ECG Measurements Heart Rate 125 AXES MN 213 P 84 QRSd 80 QRS 88 QT 289 T 89 QTc 363 Conclusion SINUS TACHYCARDIA WITH FIRST DEGREE AV BLOCK NONSPECIFIC T-WAVE ABNORMALITY ABNORMAL ECG UNCONFIRMED REPORT Electronically signed by : Shankar Raya MD 03/27/2022 21:12:01
--- NOTE | 2022-03-25 14:26 | HMH.EDGENADL ---
Discharge Plan Disposition Patient Disposition: Admitted as Observation Condition: Fair Chief Complaint: Weakness Prescriptions Prescriptions: No Action azithromycin 250 MG tablet 250 mg PO DIRECTED Qty: 6 0RF Rx Instructions: Take two (2) tablets on day #1, then one (1) tablet day #2 thru #5 dexamethasone 4 MG tablet 4 mg PO BID Qty: 14 0RF cefdinir 300 MG capsule 300 mg PO BID Qty: 14 0RF aspirin 325 MG tablet 325 mg PO DAILY simvastatin 40 tablet 40 mg PO HS albuterol sulfate 108 HFA aerosol inhaler 2 puffs IH Q6HP PRN (Reason: Shortness Of Breath) duloxetine 30 MG capsule,delayed release(DR/EC) 30 mg PO DAILY meloxicam 15 MG tablet 15 mg PO DAILY omeprazole magnesium 20 MG tablet,delayed release (DR/EC) 20 mg PO DAILY [id number] 1 EACH blister with device 1 puff IH DAILY Label Comments: INHALE 1 PUFF BY MOUTH EVERY DAY metformin 1,000 MG tablet 1,000 mg PO BIDWMEAL quetiapine 200 MG tablet extended release 24 hr 200 mg PO HS naltrexone 50 MG tablet 100 mg PO DAILY thiamine mononitrate (vit B1) 100 MG tablet 100 mg PO DAILY Referrals Follow up/Referrals: Shankar Raya MD [Primary Care Provider] - See instructions Clinical Impressions Clinical Impression: Pneumonia Discharge ED Provider: Sarmad Escalante General Adult HPI General Chief complaint: Weakness Stated complaint: Passing out, SOA, Weak Time Seen by Provider: 03/25/22 14:26 History of Present Illness HPI narrative: History obtained from patient and his brother. The patient states he has not felt well for couple of weeks. He is generally weak, brother states he has had multiple falls. Poor appetite. He has a cough and shortness of breath. He says he has pain in his lower ribs on both sides from coughing. He has been staying with his brother since Thursday because of these problems. He went to [facility] on Thursday night 2 days ago by EMS. Brother states that he was given prescriptions for steroids and nebulizer medication. He has a nebulizer, but did not have his nebulizer with him at his brother's house and therefore has not been able to use it. He is a smoker. He has a history of alcoholism. He says that he last drank alcohol yesterday, 2 beers. States that he normally drinks 3-4 beers per day. Related Data Home Medications Medication Instructions Recorded Confirmed albuterol sulfate 90 mcg/actuation 2 puffs IH Q6HP PRN Shortness Of 05/16/18 07/19/21 aerosol inhaler Breath aspirin 325 mg tablet 325 mg PO DAILY HEART/CIRCULATION 05/16/18 07/19/21 duloxetine 30 mg capsule,delayed 30 mg PO DAILY Depression 05/16/18 07/19/21 release simvastatin 40 mg tablet 40 mg PO HS Cholesterol 05/16/18 07/19/21 fluticasone fur. 100 mcg-umeclid 1 puff IH DAILY COPD 10/06/20 07/19/21 62.5 mcg-vilant 25 mcg inhalat.powder meloxicam 15 mg tablet 15 mg PO DAILY Arthritis 10/06/20 07/19/21 metformin 1,000 mg tablet 1,000 mg PO BIDWMEAL Diabetes 10/06/20 07/19/21 omeprazole magnesium 20 mg 20 mg PO DAILY GERD 10/06/20 07/19/21 tablet,delayed release quetiapine 200 mg tablet,extended 200 mg PO HS MOOD 10/07/20 07/19/21 release 24 hr naltrexone 50 mg tablet 100 mg PO DAILY substance abuse 12/16/20 07/19/21 thiamine mononitrate (vit B1) 100 100 mg PO DAILY suppplement 12/16/20 07/19/21 mg tablet Previous Rx's Medication Instructions Recorded azithromycin 250 mg tablet 250 mg PO DIRECTED #6 tabs 07/20/21 cefdinir 300 mg capsule 300 mg PO BID #14 caps 07/20/21 dexamethasone 4 mg tablet 4 mg PO BID #14 tabs 07/20/21 Allergies Allergy/AdvReac Type Severity Reaction Status Date / Time No Known Allergies Allergy Verified 07/19/21 16:27 PFSH PFS Social History Smoking Status: Current every day smoker tobacco type: cigarettes packs per day: 1 second hand exposure: Yes alcohol intake:
--- NOTE | 2022-03-25 14:40 | XR_ITS ---
FINAL REPORT CLINICAL HISTORY: Acute cough, shortness of air, weakness COMPARISON: 12/16/2020 FINDINGS: A single view of the chest was obtained. The heart is normal in size. The mediastinum is unremarkable. There are right basilar opacities consistent with pneumonia. There is no pleural effusion. There is no pneumothorax. There is no acute osseous abnormality. IMPRESSION: Right basilar opacities consistent with pneumonia. Reviewed, Interpreted and Dictated by Niko Glez III, MD Transcribed by Estella Blair Authenticated and [facility]
[2022-03-25 15:03] LABS: Basophils % 0.2 % (0.1-2.0); Eosinophils % 0.3 % (0.1-12.0); Hematocrit 34.7 % (42.0-52.0); Hemoglobin 11.7 g/dL (14.1-18.0); Lymphocytes # 0.4 K/mm3 (0.7-4.5); Lymphocytes % 3.9 % (10-50); Mean Corpuscular HGB Conc 33.8 g/dL (31.8-35.4); Mean Corpuscular Volume 100.7 fl (80-94); Mean Platelet Volume 8.5 fl (7.4-10.4); Monocytes # 0.4 K/mm3 (0.1-1.0); Monocytes % 3.7 % (1.7-9.3); Neutrophils # 9.3 K/mm3 (1.8-7.8); Neutrophils % 91.9 % (37.0-80.0); Platelet Count 147 K/mm3 (142-424); Red Blood Count 3.44 M/mm3 (4.60-6.20); Red Cell Distribution Width 13.2 % (11.5-17.5); White Blood Count 10.1 K/mm3 (4.8-10.8)
[2022-03-25 15:05] LABS: Microscopic, Urine URINE MICROSCOPIC (MICROSCOPIC)
[2022-03-25 15:05] LABS: MANUAL DIFFERENTIAL MANUAL DIFFERENTIAL (MANUAL DIFF)
[2022-03-25 15:07] LABS: Appearance,Urine CLEAR (Clear); Bilirubin,Urine Negative (Negative); Blood, Urine TRACE-I (Negative); Color,Urine DK YELLOW (Yellow); Glucose,Urine (UA) Negative (Negative); Ketones,Urine Negative (Negative); Leukocyte Esterase,Urine Negative (Negative); Nitrate,Urine Negative (Negative); Protein,Urine TRACE (Negative); Urobilinogen,Urine 0.2 EU/dl (0.2)
[2022-03-25 15:15] LABS: Alanine Aminotransferase 40 U/L (12-78); Albumin Level 3.3 g/dl (3.5-5.0); Albumin/Globulin Ratio 1.3 (1.1-1.8); Alkaline Phosphatase 141 U/L (38-126); Anion Gap 20.8 mEq/L (5-15); Aspartate Amino Transferase 46 U/L (17-59); Bilirubin,Total 1.3 mg/dl (0.2-1.3); Blood Urea Nitrogen 18 mg/dl (9-20); Calcium 8.6 mg/dl (8.4-10.2); Carbon Dioxide 23 mmol/L (22.0-30.0); Chloride 89 mmol/L (98-107); Creatine Kinase 71 U/L (55-170); Creatinine Clearance Estimated 44 mL/min (50-200); Estimated Glomerular Filt Rate 51 ml/min (>60); GFR (African American) 61 ML/MIN (>60); Globulin 2.5 g/dL (1.3-3.2); Glucose 178 mg/dl (74-100); Magnesium 1.5 mg/dl (1.6-2.3); Potassium 4.8 mmoL/L (3.5-5.1); Sodium 128 mmol/L (136-145); Total Protein,Serum 5.8 g/dl (6.3-8.2)
[2022-03-25 15:16] LABS: Ethyl Alcohol < 10 mg/dl (0-10)
--- NOTE | 2022-03-25 15:20 | PC.NURSE ---
Called lab for draw of BC x2 and LACTIC ACID
[2022-03-25 15:23] LABS: Lipase < 10 U/L (23-300)
[2022-03-25 15:25] LABS: CKMB Relative Index 6.6 U/L (0-4.0); Creatine Kinase MB 4.7 ng/ml (0.0-2.03)
[2022-03-25 15:26] LABS: Troponin I < 0.01 ng/ml (0.00-0.034)
[2022-03-25 15:36] LABS: Bacteria,Urine Trace /lpf; RBC,Urine Occasional #/hpf (0-3); Squamous Epithelial Cell,Urine Occasional #/hpf (0-5); WBC,Urine Occasional #/hpf (0-3)
[2022-03-25 15:39] LABS: Coronavirus 19, PCR Not Detected (NotDetected); Influenza A, PCR Not Detected (NotDetected); Influenza B, PCR Not Detected (NotDetected)
[2022-03-25 15:46] LABS: Eosinophils % 1 % (0-3); Lymphocytes % 7 % (10-50); Monocytes % 3 % (2-9); Neutrophils % 87 % (42-76); Total Cells Counted 100
[2022-03-25 15:47] LABS: Platelet Estimate Slight Decrease; RBC Morphology Normal
--- NOTE | 2022-03-25 16:18 | PC.NURSE ---
speaking with Dr Raya at this time.
--- NOTE | 2022-03-25 16:35 | PC.NURSE ---
Called roundhouse worker to notify of admission and need for bed assignment
--- NOTE | 2022-03-25 18:16 | PC.NURSE ---
1809- Received report from Rubin Mike RN
[2022-03-25 19:59] LABS: Reflex Lactic Add Lactic Reflex
[2022-03-25 21:03] LABS: Lactic Acid Follow Up (RFLX 1) 3.9 mmol/L (0.7-2.1)
[2022-03-25 22:35] LABS: Reflex Lactic (2 hrs) Add Lactic Reflex
[2022-03-25 23:20] LABS: Lactic Acid Follow up (RFLX 2) 3.2 mmol/L (0.7-2.1)
[2022-03-26] VITALS (11 sets, daily range): BP systolic 87–115; BP diastolic 53–65; PULSE 77–108; RESP 16–18; TEMP 36.4–37.2; O2SAT 91–95; BMI 19.5
[2022-03-26 02:12] LABS: POC Glucose,Bedside 146 (70-110)
[2022-03-26 06:13] LABS: POC Glucose,Bedside 140 (70-110)
--- NOTE | 2022-03-26 06:35 | PC.NURSE ---
pt rested well tonight. A&OX4. no c/o pain or SOA this shift. O2 sats >90% onRA. CB in reach
--- NOTE | 2022-03-26 07:53 | EXP.HP ---
History of Present Illness *Admission Date: 03/25/22 *Reason for visit:: Cough and congestion and weakness *History of present illness: 66-year-old male with long history of emphysema, recurrent pneumonia, alcohol abuse and malnutrition who came to the emergency department yesterday with a chief complaint of fatigue and weakness. He reports has been feeling bad for 2 weeks and has been staying at the home of his brother because has been able to care for himself. In the ER he was found to have infiltrates on his chest x-ray, cough and congestion, elevated lactate and hyponatremia. Admitted to hospital for IV antibiotics. On rounds this morning patient states that he is feeling some better and was able to eat all of his breakfast. [facility] Medical History (Updated 03/26/22 @ 07:55 by Shankar Raya MD) Alcohol abuse Anxiety Arthritis Asthma Colon cancer COPD (chronic obstructive pulmonary disease) Depression Diabetes mellitus, type 2 History of gastroesophageal reflux (GERD) Hyperlipidemia Hypertension Irritable bowel syndrome (IBS) Pneumonia Surgical History (Updated 03/25/22 @ 18:38 by Lizbeth Villanueva RN) History of colon resection History of colonoscopy Family History (Updated 03/25/22 @ 18:38 by Lizbeth Villanueva RN) Family history of diabetes mellitus type II Mother Social History (Updated 03/25/22 @ 18:39 by Lizbeth Villanueva RN) Smoking Status: Current every day smoker tobacco type: cigarettes packs per day: 1 second hand exposure: Yes alcohol intake: current counseling provided: provider counseling substance use type: marijuana current occupational status: disabled Travel in the last 8 weeks: None household members: none housing: house current occupational exposures/hazards: No caffeine: Yes (coffee) physical activity: none do you feel safe at home: Yes Review of Systems Review of Systems Review of systems:: pertinent systems reviewed and negative unless documented below Constitutional Constitutional: Denies headache(s) and Reports weakness ENT Ears, Nose, Mouth, and Throat: Denies headache(s) *Musculoskeletal Musculoskeletal: Denies numbness *Neurologic Neurologic: Denies headache(s), Denies numbness and Reports weakness Meds Home Medications and Allergies Home Medications Medication Instructions Recorded Confirmed Type albuterol sulfate 90 mcg/actuation 2 puffs IH Q6HP PRN Shortness Of 05/16/18 03/25/22 History aerosol inhaler Breath aspirin 325 mg tablet 325 mg PO DAILY HEART/CIRCULATION 05/16/18 03/25/22 History simvastatin 40 mg tablet 40 mg PO HS Cholesterol 05/16/18 03/25/22 History meloxicam 15 mg tablet 15 mg PO DAILY Arthritis 10/06/20 03/25/22 History omeprazole magnesium 20 mg 20 mg PO DAILY GERD 10/06/20 03/25/22 History tablet,delayed release quetiapine 200 mg tablet,extended 200 mg PO HS MOOD 10/07/20 03/25/22 History release 24 hr thiamine mononitrate (vit B1) 100 100 mg PO DAILY suppplement 12/16/20 03/25/22 History mg tablet fluticasone fur. 100 mcg-umeclid 1 inh inhalation DAILY COPD 03/26/22 03/26/22 History 62.5 mcg-vilant 25 mcg inhalat.powder (Trelegy Ellipta) metformin 1,000 mg tablet 1,000 mg PO BID Diabetes 03/26/22 03/26/22 History New Prescriptions to Start Prescriptions: Allergies Allergy/AdvReac Type Severity Reaction Status Date / Time No Known Allergies Allergy Verified 07/19/21 16:27 Exam Data for Last 24 hours Vital signs and Labs for Last 24 Hours: Temp Pulse Resp BP Pulse Ox 98.4 F 95 H 16 110/59 L 91 L 03/26/22 04:00 03/26/22 05:20 03/26/22 04:00 03/26/22 04:00 03/26/22 05:20 Laboratory Results - last 24 hr 03/25/22 14:27: WBC 10.1, RBC 3.44 L, Hgb 11.7 L, Hct 34.7 L, MCV 100.7 H, MCH 34.0 H, MCHC 33.8, RDW 13.2, Plt Count 147, MPV 8.5, Neut % (Auto) 91.9 H, Lymph % (Auto) 3.9 L, [place] % (Auto) 3.7, Eos % (Auto) 0.3, Baso % (Auto) 0.2, Neut # (Auto) 9.3 H, Lymph # (Auto) 0.4 L, [place]
--- NOTE | 2022-03-26 07:56 | HMH.PHAINT1 ---
Pharmacy Intervention Comments: Home medication reconciliation completed using outpatient pharmacy fill history.
--- NOTE | 2022-03-26 09:20 | HMH.OTEV ---
OT Inpatient Evaluation Rehab OT IP Evaluation Start: 03/26/22 07:51 Freq: ONCE Status: Complete Protocol: Document 03/26/22 09:13 DARYL (Rec: 03/26/22 09:19 [facility] [id number]) Rehab OT IP Assessment Subjective History Pt oriented x 3 on arrival. Pt agreeable to engage in therapy evaluation. Pt was admitted via ED on 03/25/22 due to cough, congestion, and weakness. Pt reports prior to being in the hospital he was living alone, but had recently stayed the weekend at his brothers house. Pt claims he was independent with all ADLs such as dressing, bathing, and feeding. Pt also claims he was independent with some IADLs such as cooking, cleaning, and laundry. His brother completed grocery shopping for him. He used a cane during ambulation. Pt has a past medical history of: Alcohol abuse Anxiety Arthritis Asthma Colon cancer COPD (chronic obstructive pulmonary disease) Depression Diabetes mellitus, type 2 History of gastroesophageal reflux (GERD) Hyperlipidemia Hypertension Irritable bowel syndrome (IBS) Pneumonia Subjective I can normally do what I need to. Objective Patient Orientation Person,Place,Birthday Upper Extremity Gross ROM Min Limitation <25% Shoulder ROM Limitations Muscle Weakness Elbow ROM Limitations Muscle Weakness Wrist Limitations of Range of Motion Muscle Weakness Bed Mobility bed mobility-scooting,bed mobility - supine/sit,bed mobility - rolling Assist Level Supervision/Stand by Transfer Training Sit/Stand Transfer Assist Level Contact Guard/Hand Hold Lower Body Dressing Ability Standb
--- NOTE | 2022-03-26 09:52 | HMH.PTEV ---
Physical Therapy Evaluation Rehab PT IP Evaluation Start: 03/26/22 07:51 Freq: ONCE Status: Active Protocol: Document 03/26/22 09:35 ELINOR (Rec: 03/26/22 09:51 ELINOR [id number]) Subjective/History History History This is the initial IP PT evaluation for Noah Rivero . Pt is a 66 y/o male admitted to [facility] for pneumonia. Pt lives alone in [place] w/ some family checking in on him during the week. Subjective Subjective No complaints from pt - pt reports using SPC for AD at home Rehab PT IP Eval Objective Appearance Patient Behavior Cooperative Patient Orientation Place,Name,Birthday,Year Difficulty following instructions none Speech Pattern Clear,Appropriate,Soft-Spoken Ambulation Patient Able to Ambulate Yes Ambulation Observation IP General Gait Pattern Observation Shuffling Step Ambulation Distance (feet) 35 Ambulation Assistive Device None Ambulation Ability Contact Guard/Hand Hold Balance Ability to Arise Able, uses arms to help Sitting Balance Steady, safe Standing Balance Steady, wide stance Dynamic Sitting Balance Ability Good Dynamic Standing Balance Ability Fair Transfers Bed Transfer Ability Supervision/Stand by Chair Transfer Ability Supervision/Stand by Sit to Stand Bed Transfer Ability Supervision/Stand by,Contact Guard/Hand Hold Sit to Stand Chair Transfer Ability Supervision/Stand by,Contact Guard/Hand Hold Rehab PT IP prob,goals,plan Problems Date of Evaluation: 03/26/22 PT IP Problems Gait,Balance,Self care,Safety Rehab Potential Rehab Potential Good Equipment Needs Assistive Devices None / NA,Straight Cane Plan PT Intervention Plan Transfers,Gait,Balance,Self care,Safety,Therapeutic Exercise PT Plan Frequency BID Duration LOS Discharge Goals Bed Transfer Ability Independent,Supervision/Stand by Sit to Stand Chair Transfer Ability Independent,Supervision/Stand by Ambulation Assistive Device Straight Cane Ambulation Distance (feet) 35 Discharge Plan PT Discharge Plan Pt will benefit from skilled therapy while in [facility]. S/P d/c pt would continue to benefit
--- NOTE | 2022-03-26 10:02 | SW/DCPLANNER ---
Addendum entered by Pat Dec[place] 03/27/22 10:08: This patient will discharge to [facility] SNF level of care today. Addendum entered by Pat Dec[place] 03/26/22 14:34: [facility] stated that she can accept this patient tomorrow. No COVID swab is needed prior to discharge. I have also updated Edna galicia/ [facility]. Addendum entered by Pat Decatur 03/26/22 14:01: [facility]icia galicia/ [facility] stated that she staff will be onsite to evaluate this patient today. Addendum entered by Pat Decatur 03/26/22 12:55: [facility] is currently reviewing patient information. Original Note: I spoke with this patient regarding plans once medically stable for discharge. Patient stated that he lives at home alone. PT/OT evaluated patient and recommended SNF level of care or home w/ family and assistance and home health at discharge. Patient is agreeable to SNF level of care at time of discharge in [place]. Patient information has been faxed to [facility]. [facility] does not have any beds available at this time.
[2022-03-26 11:46] LABS: POC Glucose,Bedside 294 (70-110)
--- NOTE | 2022-03-26 13:37 | PC.NURSE ---
at approx 1320 physical therapy was working with pt in room. When patient stood, he became weak and dizzy and he hd to sit back down on the bed. pt bp was checked and was noted to be 75/44. Dr Raya was notified at 1328. new order received for pt to have 500ml bolus of NS.
[2022-03-26 17:55] LABS: POC Glucose,Bedside 171 (70-110)
--- NOTE | 2022-03-26 18:08 | CT_ITS ---
PROCEDURE INFORMATION: Exam: CT Head Without Contrast Exam date and time: 03/26/2022 6:38 PM Age: 66 years old Clinical indication: Speech disturbance; Slurred speech; Additional info: Weakness/slurred speech TECHNIQUE: Imaging protocol: Computed tomography of the head without contrast. Radiation optimization: All CT scans at this facility use at least one of these dose optimization techniques: automated exposure control; mA and/or kV adjustment per patient size (includes targeted exams where dose is matched to clinical indication); or iterative reconstruction. COMPARISON: BRAINWO MR head/brain wo con 10/16/2017 2:01 PM FINDINGS: Brain: There is age-appropriate cerebral atrophy. Mild changes of chronic small vessel ischemia within the cerebral white matter regions bilaterally. No acute infarct or hemorrhage. Cerebral ventricles: No ventriculomegaly. Paranasal sinuses: Visualized sinuses are unremarkable. No fluid levels. Mastoid air cells: Visualized mastoid air cells are well aerated. Bones/joints: Unremarkable. No acute fracture. Soft tissues: Unremarkable. IMPRESSION: No acute intracranial abnormality.
[2022-03-26 20:30] LABS: POC Glucose,Bedside 327 (70-110)
[2022-03-27] VITALS (7 sets, daily range): BP systolic 90–111; BP diastolic 58–69; PULSE 78–109; RESP 16–18; TEMP 36.4–36.6; O2SAT 94–100; BMI 19.9
--- NOTE | 2022-03-27 04:14 | PC.NURSE ---
pt rested well this shift. no c/o pain. A&OX4. O2 sats >95% on RA. CB in reach.
[2022-03-27 05:18] LABS: POC Glucose,Bedside 118 (70-110)
[2022-03-27 07:23] LABS: Basophils % 0.1 % (0.1-2.0); Eosinophils % 0.5 % (0.1-12.0); Hematocrit 27.5 % (42.0-52.0); Hemoglobin 8.8 g/dL (14.1-18.0); Lymphocytes # 0.3 K/mm3 (0.7-4.5); Lymphocytes % 8.9 % (10-50); MANUAL DIFFERENTIAL MANUAL DIFFERENTIAL (MANUAL DIFF); Mean Corpuscular HGB Conc 32.2 g/dL (31.8-35.4); Mean Corpuscular Hemoglobin 33.1 pg (27.0-31.2); Mean Corpuscular Volume 102.9 fl (80-94); Monocytes # 0.2 K/mm3 (0.1-1.0); Monocytes % 4.7 % (1.7-9.3); Neutrophils # 3.4 K/mm3 (1.8-7.8); Neutrophils % 85.8 % (37.0-80.0); Platelet Count 154 K/mm3 (142-424); Red Blood Count 2.67 M/mm3 (4.60-6.20); Red Cell Distribution Width 13.4 % (11.5-17.5); White Blood Count 3.9 K/mm3 (4.8-10.8)
[2022-03-27 07:37] LABS: Chloride 96 mmol/L (98-107); Sodium 129 mmol/L (136-145)
[2022-03-27 07:38] LABS: Potassium 4.1 mmoL/L (3.5-5.1)
[2022-03-27 07:40] LABS: Blood Urea Nitrogen 19 mg/dl (9-20); Creatinine Clearance Estimated 56 mL/min (50-200); Estimated Glomerular Filt Rate 67 ml/min (>60); GFR (African American) 81 ML/MIN (>60)
[2022-03-27 07:41] LABS: Anion Gap 12.1 mEq/L (5-15); Calcium 7.4 mg/dl (8.4-10.2); Carbon Dioxide 25 mmol/L (22.0-30.0); Glucose 143 mg/dl (74-100)
[2022-03-27 07:53] LABS: Lymphocytes % 12 % (10-50); Monocytes % 3 % (2-9); Neutrophils % 85 % (42-76); Platelet Estimate Normal; RBC Morphology Normal; Total Cells Counted 100
--- NOTE | 2022-03-27 09:19 | EXP.DC.SUM ---
General Admission date:: 03/26/22 Discharge date: 03/27/22 HPI HPI HPI: 66-year-old male with long history of emphysema, recurrent pneumonia, alcohol abuse and malnutrition who came to the emergency department yesterday with a chief complaint of fatigue and weakness. He reports has been feeling bad for 2 weeks and has been staying at the home of his brother because has been able to care for himself. In the ER he was found to have infiltrates on his chest x-ray, cough and congestion, elevated lactate and hyponatremia. Admitted to hospital for IV antibiotics. On rounds this morning patient states that he is feeling some better and was able to eat all of his breakfast. Hospital Course Hospital Course Hospital Course: Patient was admitted, placed on IV antibiotics, improved very nicely. Was unable to give a sputum sample before discharge, did give one this morning and we will follow this as an outpatient. His daughter raise some concerns about some strokelike symptoms because of cognitive impairment, we did a CT scan with noncontrast yesterday which was unrevealing, patient really is at his baseline and he has no concerns. His hemoglobin is noted to be lower than baseline on admission and this morning, however I believe this is dilutional. Patient has a long history of protein calorie malnutrition and with his alcoholism is at risk for chronic anemia. Plan will be to discharge to skilled care facility today to receive PT and OT, will also need dietary consultation and will need a CBC and a BMP on 03/29/2022. Follow-up will be per the physicians at the skilled care facility. We will continue antibiotics as noted for his community-acquired bronchopneumonia. Exam Data for Last 24 hours Vital signs and Labs for Last 24 Hours: Temp Pulse Resp BP Pulse Ox 97.8 F 109 H 16 111/58 L 94 L 03/27/22 08:00 03/27/22 08:00 03/27/22 08:00 03/27/22 08:00 03/27/22 08:00 Laboratory Results - last 24 hr 03/26/22 11:38: POC Glucose 294 H 03/26/22 17:29: POC Glucose 171 H 03/26/22 20:23: POC Glucose 327 H* 03/27/22 05:08: POC Glucose 118 H 03/27/22 07:09: WBC 3.9 L D, RBC 2.67 L, Hgb 8.8 L, Hct 27.5 L, MCV 102.9 H, MCH 33.1 H, MCHC 32.2, RDW 13.4, Plt Count 154, MPV 8.0, Neut % (Auto) 85.8 H, Lymph % (Auto) 8.9 L, [place] % (Auto) 4.7, Eos % (Auto) 0.5, Baso % (Auto) 0.1, Neut # (Auto) 3.4, Lymph # (Auto) 0.3 L, [place] # (Auto) 0.2, Eos # (Auto) 0.0, Baso # (Auto) 0.0, Total Counted 100, Neutrophils % (Manual) 85 H, Lymphocytes % (Manual) 12, Monocytes % (Manual) 3, Platelet Estimate Normal, RBC Morphology Normal 03/27/22 07:09: Sodium 129 L, Potassium 4.1, Chloride 96 L, Carbon Dioxide 25, Anion Gap 12.1, BUN 19, Creatinine 1.10 D, Estimated Creat Clear 56, Estimated GFR 67, Est GFR ( Amer) 81 D, Glucose 143 H, Calcium 7.4 L I & O for Last 24 hours: Intake & Output 03/24/22 03/25/22 03/26/22 03/27/22 11:59 11:59 11:59 11:59 Intake Total 540 / 540 760 / 760 Output Total 150 / 150 1375 / 1375 Balance 390 / 390 -615 / -615 Weight 128 lb 11.294 oz 131 lb 8 oz Microbiology Reports for the Last 24 Hours: Microbiology 03/26/22 09:00 Sputum - Expectorated Sputum Gram Stain - Final 03/26/22 09:00 Sputum - Expectorated Sputum Sputum Culture - Preliminary Constitutional Constitutional: no acute distress Comments: Appears pale, but at baseline *Routine HEENT Exam Head: Present normocephalic Eye: Present EOMI and PERRL ENT: Present mucous membranes moist *Routine Neck Exam Neck: Present supple; Absent lymphadenopathy *Routine Respiratory Exam Respiratory: Present rhonchi Comments: but better air entry bilaterally *Routine Cardiovascular Exam Cardiovascular: Present RRR *Routine Abdominal Exam Abdominal: Present soft and normoactive bowel sounds; Absent tenderness *Routine Extremities Exam Extremities: Absent cyanosis, clubbing or edema *Routine Skin Exam Skin: Present warm; Absent rash *Routine Neurologi
[2022-03-27 13:58] LABS: POC Glucose,Bedside 284 (70-110)
--- NOTE | 2022-03-27 14:05 | CARE MANAGER ---
Called and spoke with [facility] who has accepted patient, DC summary faxed. Patient is planned to discharge there today for skilled therapy. Patient will be transferred by his brother, who is present in patient's room.
--- NOTE | 2022-03-28 14:06 | CARE MANAGER ---
Spoke with patient nurse at [facility], patient is doing well and has no issues at this time.
== END 2022-03-27 14:46 | DRG 190 ==
LOC: ER 16:47 → 2ND 16:52
PROVIDERS: Admitting Provider Family Medicine; Emergency Provider Emergency Medicine; PCP Internal Medicine Adolescent Medicine; Visit Provider Internal Medicine Adolescent Medicine
DX: E43 Unspecified severe protein-calorie malnutrition (principal); E87.1 Hypo-osmolality and hyponatremia; Z68.1 Body mass index [BMI] 19.9 or less, adult; F17.210 Nicotine dependence, cigarettes, uncomplicated; I10 Essential (primary) hypertension; F10.20 Alcohol dependence, uncomplicated; E11.9 Type 2 diabetes mellitus without complications; J43.9 Emphysema, unspecified; Z79.84 Long term (current) use of oral hypoglycemic drugs
CPT/HCPCS: 36415; 70450; 71045; 80048; 80053; 81001; 82550; 82553; 82962; 83605; 83690; 83735; 84484; 85007; 85025; 87040; 87070; 87077; 87186; 87205; 93005; 94640; 97110; 97116; 97162; 97166; 97530; 99285; C9803; J0456; J0696; U0003; U0005

== ENCOUNTER 2022-06-16 17:55 | Observation (INO) | payer MEDICARE, OTHER, SELFPAY ==
[2022-06-16] VITALS (10 sets, daily range): BP systolic 107–120; BP diastolic 62–72; PULSE 94–105; RESP 16–17; TEMP 36.6; O2SAT 95–100; BMI 21.2
[2022-06-16 18:16] LABS: Basophils % 0.5 % (0.1-2.0); Eosinophils # 0.1 K/mm3 (0.0-0.4); Eosinophils % 1.4 % (0.1-12.0); Hematocrit 32.9 % (42.0-52.0); Hemoglobin 11.1 g/dL (14.1-18.0); Lymphocytes # 2.7 K/mm3 (0.7-4.5); Mean Corpuscular HGB Conc 33.8 g/dL (31.8-35.4); Mean Corpuscular Hemoglobin 33.4 pg (27.0-31.2); Mean Corpuscular Volume 98.6 fl (80-94); Mean Platelet Volume 7.7 fl (7.4-10.4); Monocytes # 0.5 K/mm3 (0.1-1.0); Monocytes % 6.8 % (1.7-9.3); Neutrophils # 4.4 K/mm3 (1.8-7.8); Neutrophils % 56.2 % (37.0-80.0); Platelet Count 219 K/mm3 (142-424); Red Blood Count 3.33 M/mm3 (4.60-6.20); White Blood Count 7.8 K/mm3 (4.8-10.8)
[2022-06-16 18:18] LABS: Chloride 100 mmol/L (98-107)
[2022-06-16 18:19] LABS: Potassium 4.3 mmoL/L (3.5-5.1); Sodium 130 mmol/L (136-145)
[2022-06-16 18:21] LABS: Alanine Aminotransferase 28 U/L (12-78); Alkaline Phosphatase 124 U/L (38-126); Aspartate Amino Transferase 30 U/L (17-59); Bilirubin,Total 0.3 mg/dl (0.2-1.3); Blood Urea Nitrogen 10 mg/dl (9-20); Creatinine Clearance Estimated 47 mL/min (50-200); Estimated Glomerular Filt Rate 51 ml/min (>60); GFR (African American) 61 ML/MIN (>60)
[2022-06-16 18:22] LABS: Albumin Level 2.8 g/dl (3.5-5.0); Albumin/Globulin Ratio 1.2 (1.1-1.8); Anion Gap 19.3 mEq/L (5-15); Calcium 7.9 mg/dl (8.4-10.2); Carbon Dioxide 15 mmol/L (22.0-30.0); Globulin 2.4 g/dL (1.3-3.2); Glucose 127 mg/dl (74-100); Total Protein,Serum 5.2 g/dl (6.3-8.2)
[2022-06-16 19:44] LABS: Acetone, Serum (Rapid) None Detected (None Detect)
--- NOTE | 2022-06-16 20:05 | XR_ITS ---
PROCEDURE INFORMATION: Exam: XR Chest Exam date and time: 06/16/2022 8:34 PM Age: 66 years old Clinical indication: Shortness of breath; Additional info: Weakness, SOB TECHNIQUE: Imaging protocol: Radiologic exam of the chest. Views: 1 view. COMPARISON: CR XR CHEST PORTABLE 03/25/2022 2:58 PM FINDINGS: Lungs: There has developed mild right apical pulmonary infiltrate. No other active infiltrate seen. Pleural spaces: Unremarkable. No pleural effusion. No pneumothorax. Heart/Mediastinum: Unremarkable. No cardiomegaly. Bones/joints: Moderate degenerative changes noted in the thoracic spine. IMPRESSION: Mild right apical infiltrate.
[2022-06-16 20:31] LABS: Magnesium 1.5 mg/dl (1.6-2.3)
--- NOTE | 2022-06-16 20:35 | PC.NURSE ---
Pt provided with pillow, drink, and tv remote
[2022-06-16 21:10] LABS: Microscopic, Urine URINE MICROSCOPIC (MICROSCOPIC)
[2022-06-16 21:58] LABS: Appearance,Urine CLEAR (Clear); Bilirubin,Urine Negative (Negative); Blood, Urine Negative (Negative); Color,Urine YELLOW (Yellow); Glucose,Urine (UA) Negative (Negative); Ketones,Urine Negative (Negative); Leukocyte Esterase,Urine Negative (Negative); Nitrate,Urine Negative (Negative); PH,Urine 5.5 (5.0-8.5); Protein,Urine Negative (Negative); Urobilinogen,Urine 0.2 EU/dl (0.2)
[2022-06-16 22:02] LABS: Coronavirus 19, PCR Not Detected (NotDetected); Influenza A, PCR Not Detected (NotDetected); Influenza B, PCR Not Detected (NotDetected)
[2022-06-16 22:03] LABS: Squamous Epithelial Cell,Urine Occasional #/hpf (0-5); WBC,Urine Occasional #/hpf (0-3)
--- NOTE | 2022-06-16 22:12 | PC.NURSE ---
Dr. Johns speaking with pts daughter, Iman.
--- NOTE | 2022-06-16 22:14 | HMH.EDGENADL ---
Discharge Plan Disposition Patient Disposition: Admitted as Observation Clinical Impressions Clinical Impression: Pneumonia Discharge ED Provider: Nyla Johns General Adult HPI General Chief complaint: Nausea/Vomiting/Diarrhea Stated complaint: NAUSEA Time Seen by Provider: 06/16/22 19:58 Mode of Arrival: EMS Limitations: No Limitations Description of Symptoms (Recalled from ER Triage Doc. by RN): PT BROUGHT IN VIA EMS FOR NAUSEA AND EMESIS FOR A COUPLE OF DAYS History of Present Illness HPI narrative: 66-year-old male with PMH of COPD, alcoholism, HTN, DM who presents for multiple complaints including 1 week of generalized weakness, nausea, vomiting. Patient states he has had significant weight loss estimated 50 pounds over the past several months. Additionally, has numerous chronic concerns including shortness of breath, intermittent abdominal pain, difficulty urinating. No fevers, chills, chest pain, changes in bowel movements. Patient states he lives alone. He is overall poor historian. Of note, patient does have a history of alcoholism but tells me he drinks several beers nightly which is decreased from prior. Related Data Home Medications Medication Instructions Recorded Confirmed albuterol sulfate 90 mcg/actuation 2 puffs IH Q6HP PRN Shortness Of 05/16/18 06/16/22 aerosol inhaler Breath aspirin 325 mg tablet 325 mg PO DAILY CAD 05/16/18 06/16/22 simvastatin 40 mg tablet 40 mg PO HS hyperlipidemia 05/16/18 06/16/22 meloxicam 15 mg tablet 15 mg PO DAILY Arthritis 10/06/20 06/16/22 omeprazole magnesium 20 mg 20 mg PO DAILY acid reflux 10/06/20 06/16/22 tablet,delayed release quetiapine 200 mg tablet,extended 200 mg PO HS MOOD 10/07/20 06/16/22 release 24 hr fluticasone fur. 100 mcg-umeclid 1 inh inhalation DAILY COPD 03/26/22 06/16/22 62.5 mcg-vilant 25 mcg inhalat.powder (Trelegy Ellipta) metformin 1,000 mg tablet 1,000 mg PO BID Diabetes 03/26/22 06/16/22 Allergies Allergy/AdvReac Type Severity Reaction Status Date / Time No Known Allergies Allergy Verified 07/19/21 16:27 [facility] Disclaimer: The information contained in this section may have been updated after the patient was seen, as this information can be updated by other users. Medical History Acute alcoholic pancreatitis Acute pancreatitis Acute renal failure [place] (acute kidney injury) Alcohol abuse Alcohol withdrawal Alcoholic pancreatitis Anxiety Arthritis Asthma Chronic pancreatitis Colon cancer COPD (chronic obstructive pulmonary disease) Depression Diabetes mellitus, type 2 History of gastroesophageal reflux (GERD) Hyperlipidemia Hypertension Hypomagnesemia Hyponatremia Hyponatremia Illiteracy Irritable bowel syndrome (IBS) Pneumonia Pneumonia Polysubstance abuse Protein-calorie malnutrition, mild Protein-calorie malnutrition, moderate Transaminitis Surgical History History of colon resection History of colonoscopy Family History (Updated 03/25/22 @ 18:38 by Lizbeth Villanueva RN) Mother Family history of diabetes mellitus type II Social History (Updated 06/17/22 @ 01:49 by Rossi Worthy RN) Smoking Status: Current every day smoker tobacco type: cigarettes packs per day: 1 second hand exposure: Yes alcohol intake: current counseling provided: provider counseling substance use type: marijuana current occupational status: disabled Travel in the last 8 weeks: None household members: none housing: house current occupational exposures/hazards: No caffeine: Yes (coffee) physical activity: none do you feel safe at home: Yes ROS Obtained: Yes All systems reviewed & no additional complaints except as documented limited as patient is a poor historian Physical Exam General General appearance: alert and in no apparent distress Comment: thin Head Head exa
--- NOTE | 2022-06-16 23:46 | EXP.HP ---
History of Present Illness *Admission Date: 06/16/22 *Reason for visit:: hyponatremia, short of breath, DM, lives alone *History of present illness: several days of PFSH [facility] Disclaimer: The information contained in this section may have been updated after the patient was seen, as this information can be updated by other users. Medical History (Updated 06/17/22 @ 00:01 by Jesus Patel APRN) Acute alcoholic pancreatitis Acute pancreatitis Acute renal failure [place] (acute kidney injury) Alcohol abuse Alcohol withdrawal Alcoholic pancreatitis Anxiety Arthritis Asthma Chronic pancreatitis Colon cancer COPD (chronic obstructive pulmonary disease) Depression Diabetes mellitus, type 2 History of gastroesophageal reflux (GERD) Hyperlipidemia Hypertension Hypomagnesemia Hyponatremia Hyponatremia Illiteracy Irritable bowel syndrome (IBS) Pneumonia Pneumonia Polysubstance abuse Protein-calorie malnutrition, mild Protein-calorie malnutrition, moderate Transaminitis Surgical History (Updated 03/25/22 @ 18:38 by Lizbeth Villanueva RN) History of colon resection History of colonoscopy Family History (Updated 03/25/22 @ 18:38 by Lizbeth Villanueva RN) Mother Family history of diabetes mellitus type II Social History (Updated 03/25/22 @ 18:39 by Lizbeth Villanueva RN) Smoking Status: Current every day smoker tobacco type: cigarettes packs per day: 1 second hand exposure: Yes alcohol intake: current counseling provided: provider counseling substance use type: marijuana current occupational status: disabled Travel in the last 8 weeks: None household members: none housing: house current occupational exposures/hazards: No caffeine: Yes (coffee) physical activity: none do you feel safe at home: Yes Review of Systems Review of Systems Review of systems (narrative): drinks at least a 6 pack beer a day , smokes one pack , and per patient weight lose of estimated 40 pounds last several months Constitutional Constitutional: Reports system reviewed and no additional complaints, except as documented, Reports body ache(s), Reports lethargy and Reports malaise Comments: appears underweight and malnourished Eyes Eyes: Reports system reviewed and no additional complaints, except as documented ENT Ears, Nose, Mouth, and Throat: Reports system reviewed and no additional complaints, except as documented *Cardiovascular Cardiovascular: Reports system reviewed and no additional complaints, except as documented and Reports dyspnea Comments: denies chest pain *Respiratory Respiratory: Reports cough and Reports dyspnea *Gastrointestinal Gastrointestinal: Reports system reviewed and no additional complaints, except as documented and Reports abdominal pain Comments: has anterior lower abd pain, bilateral *Genitourinary Genitourinary: Reports system reviewed and no additional complaints, except as documented *Musculoskeletal Musculoskeletal: Reports myalgias Integumentary/Breasts Skin/Breast: Reports system reviewed and no additional complaints, except as documented *Neurologic Neurologic: Reports system reviewed and no additional complaints, except as documented Psychiatric Psychiatric: Reports system reviewed and no additional complaints, except as documented and Reports as per HPI Endocrine Endocrine: Reports change in body appearance Comments: weight loss Hematologic/Lymphatic Hematologic/Lymphatic: Reports system reviewed and no additional complaints, except as documented Allergic/Immunologic Allergic/Immunologic: Reports system reviewed and no additional complaints, except as documented Meds Home Medications and Allergies Home Medications Medication Instructions Recorded Confirmed Type albuterol sulfate 90 mcg/actuation 2 puffs IH Q6HP PRN Shortness Of 05/16/18 06/16/22 History aerosol inhaler Breath aspirin 325 mg tablet 325 mg PO DAILY CAD 05/16/18 06/16/22 History simvastatin 40 mg tablet 40 mg
[2022-06-17] VITALS (8 sets, daily range): BP systolic 84–134; BP diastolic 50–78; PULSE 94–130; RESP 18–20; TEMP 36.5–37.2; O2SAT 95–98; BMI 20.1; BMI 20.2
--- NOTE | 2022-06-17 02:02 | PC.NURSE ---
Pt is a 66 year old male, new admission this shift for Ride sided Pneumonia. Pt reports feeling very tired and no strength for a few days. A/O X 4, lungs were diminished, resp even and non labored. Pt reports he has fallen at home about 2 weeks ago, pt has been placed on fall precautions. Pt ambulated in room with no assistance, tolerated well. IV is patent, pt encouraged to report any needs or Shortness of air to staff. Bed locked in low position, side rails up x 2, call light in reach.
[2022-06-17 07:28] LABS: Anion Gap 11.5 mEq/L (5-15); Blood Urea Nitrogen 9 mg/dl (9-20); Calcium 7.7 mg/dl (8.4-10.2); Carbon Dioxide 21 mmol/L (22.0-30.0); Chloride 106 mmol/L (98-107); Creatinine Clearance Estimated 52 mL/min (50-200); Estimated Glomerular Filt Rate 61 ml/min (>60); GFR (African American) 73 ML/MIN (>60); Glucose 96 mg/dl (74-100); Potassium 4.5 mmoL/L (3.5-5.1); Sodium 134 mmol/L (136-145)
[2022-06-17 07:57] LABS: Thyroid Stimulating Hormone 2.63 uIU/mL (0.465-4.68)
--- NOTE | 2022-06-17 10:27 | HMH.PHAINT1 ---
Pharmacy Intervention Comments: Home medications reconciliation completed on patient using external fill history. -An Palma, PharmD Candidate 2022
--- NOTE | 2022-06-17 11:29 | HMH.PTEV ---
Physical Therapy Evaluation Rehab PT IP Evaluation Start: 06/17/22 11:13 Freq: ONCE Status: Active Protocol: Document 06/17/22 11:25 ROCIO (Rec: 06/17/22 11:29 [facility] [id number]) Subjective/History History History 66 yowm adm to [facility] with PNA. He reports he lives alone, no steps to enter the home and he is generally independent with all mobility without AD. He does report he has a walker at home if he ever needs to use it. Subjective Subjective Pt reports feeling good this am. Rehab PT IP Eval Objective Appearance Patient Behavior Appropriate Patient Orientation Person,Place,Time Difficulty following instructions none Speech Pattern Clear Ambulation Patient Able to Ambulate Yes Balance Ability to Arise Able, uses arms to help Sitting Balance Steady, safe Standing Balance Steady, wide stance Dynamic Sitting Balance Ability Good Dynamic Standing Balance Ability Good Transfers Bed Transfer Ability Independent Chair Transfer Ability Independent Sit to Stand Bed Transfer Ability Independent Sit to Stand Chair Transfer Ability Independent ROM All Extremities PT ROM Status WFL MMT All Extremities PT MMT WFL Rehab PT IP prob,goals,plan Problems Date of Evaluation: 06/17/22 Discharge Plan PT Discharge Plan Pt is currently independent with all mobility and is at baseline, he is appropriate to return home once medically stable for d/c. G -code Required No Eval Complexity Eval Charge Codes 47290 - Moderate Complexity PHYSICIAN CERTIFICATION: I certify the specified therapy services for Noah Rivero JR are required, authorized, and reviewed every 30 days.
--- NOTE | 2022-06-17 14:32 | EXP.PN ---
Subjective *Date: 06/17/22 *Time: 14:36 Interval history: Date of service June 17, 2022 The Patient reports no acute eventsOvernight since admission.I am accompanied by several members of the multidisciplinary rounds team to evaluate the patient. Nursing staff report that he remains afebrile with stable vital signs and saturating appropriately on room air. He reports improved nausea and no further emesis. We have reviewed and discussed his morning labs which includes an improved creatinine. Exam Data for Last 24 hours Vital signs and Labs for Last 24 Hours: Temp Pulse Resp BP Pulse Ox 97.7 F 97 H 18 100/58 L 97 06/17/22 10:45 06/17/22 10:45 06/17/22 10:45 06/17/22 10:45 06/17/22 10:45 Laboratory Results - last 24 hr 06/16/22 17:45: WBC 7.8, RBC 3.33 L, Hgb 11.1 L, Hct 32.9 L, MCV 98.6 H, MCH 33.4 H, MCHC 33.8, RDW 14.0, Plt Count 219, MPV 7.7, Neut % (Auto) 56.2, Lymph % (Auto) 35.0, [place] % (Auto) 6.8, Eos % (Auto) 1.4, Baso % (Auto) 0.5, Neut # (Auto) 4.4, Lymph # (Auto) 2.7, [place] # (Auto) 0.5, Eos # (Auto) 0.1, Baso # (Auto) 0.0 06/16/22 17:45: Sodium 130 L, Potassium 4.3, Chloride 100, Carbon Dioxide 15 L, Anion Gap 19.3 H, BUN 10, Creatinine 1.40 H, Estimated Creat Clear 47, Estimated GFR 51 L, Est GFR ( Amer) 61, Glucose 127 H, Calcium 7.9 L, Total Bilirubin 0.3, AST 30, ALT 28, Alkaline Phosphatase 124, Total Protein 5.2 L, Albumin 2.8 L, Globulin 2.4, Albumin/Globulin Ratio 1.2 06/16/22 17:45: Acetone Level None detected 06/16/22 17:45: Phosphorus 4.0, Magnesium 1.5 L 06/16/22 20:31: Urine Color Yellow, Urine Appearance Clear, Urine pH 5.5, Ur Specific [place] 1.010, Urine Protein Negative, Urine Glucose (UA) Negative, Urine Ketones Negative, Urine Blood Negative, Urine Nitrate Negative, Urine Bilirubin Negative, Urine Urobilinogen 0.2, Ur Leukocyte Esterase Negative, Urine RBC None, Urine WBC Occasional, Ur Squamous Epith Cells Occasional, Urine Bacteria None 06/16/22 21:54: SARS-CoV-2 (PCR) Not detected, Influenza A Untype (PCR) Not detected, Influenza Type B (PCR) Not detected 06/17/22 07:09: Sodium 134 L, Potassium 4.5, Chloride 106, Carbon Dioxide 21 L, Anion Gap 11.5, BUN 9, Creatinine 1.20, Estimated Creat Clear 52, Estimated GFR 61, Est GFR ( Amer) 73, Glucose 96 D, Calcium 7.7 L, TSH 2.63 I & O for Last 24 hours: Intake & Output 06/14/22 06/15/22 06/16/22 06/17/22 23:59 23:59 23:59 23:59 Intake Total 600 / 600 Output Total 500 / 500 Balance 100 / 100 Weight 63.503 kg 60.4 kg Constitutional Constitutional: no acute distress *Routine HEENT Exam Head: Present normocephalic Eye: Present EOMI and PERRL ENT: Present mucous membranes moist *Routine Neck Exam Neck: Present supple; Absent lymphadenopathy *Routine Respiratory Exam Respiratory: Present rhonchi, distant breath sounds and normal respiratory effort *Routine Cardiovascular Exam Cardiovascular: Present RRR *Routine Abdominal Exam Abdominal: Present soft and normoactive bowel sounds; Absent tenderness *Routine Extremities Exam Extremities: Absent cyanosis, clubbing or edema *Routine Skin Exam Skin: Present warm; Absent rash *Routine Neurological Exam Neurological: Present alert and oriented X3 Assessment and Plan *Assessment and plan (1) COPD exacerbation: Status: Acute Category: Medical Code(s): J44.1 - Chronic obstructive pulmonary disease with (acute) exacerbation (2) Tobacco use disorder: Status: Chronic Category: Medical Code(s): F17.200 - Nicotine dependence, unspecified, uncomplicated (3) Renal insufficiency: Problem Comment: Creatinine returned to normal Status: Chronic Category: Medical Code(s): N28.9 - Disorder of kidney and ureter, unspecified (4) Alcoholism: Status: Chronic Category: Medical Code(s): F10.20 - Alcohol dependence, uncomplicated (5) Chronic alcohol abuse: Status: Chronic Category: Medic
[2022-06-17 16:53] LABS: POC Glucose,Bedside 159 (70-110)
--- NOTE | 2022-06-17 17:30 | PC.NURSE ---
PT IS RESTING IN BED. ALERT AND ORIENTED X4. EATING AND DRINKING FAIR. PT HAS BEEN AMBULATING IN THE [place]. PT WAS HOPING TO GET TO GO HOME TODAY. PT'S DAUGHTER CALLED AND STATED SHE WAS CONCERNED FOR PT TO GO HOME DUE TO HIM BEING VERY FORGETFUL AND SHE WAS AFRAID HE WOULD NOT TAKE ALL OF HIS ANTIBIOTICS. PT HAS BEEN INDEPENDENT T/O THE SHIFT. NO NAUSEA/VOMITING. WILL CONTINUE TO MONITOR.
--- NOTE | 2022-06-18 03:00 | PC.NURSE ---
Pt has been resting in bed all shift, has been A/O X 4. Resp even and non labored, lungs diminished. Pt has been up in the [place] walking, tolerated well. Reports he wants to go home soon. IV is patent, pt educated on plan of care and medications. Encouraged to report any needs to staff. Bed locked in low position side rails up x 2, call light in place.
[2022-06-18 03:48] VITALS: BP 87/42; PULSE 91; RESP 18; TEMP 37; O2SAT 99
[2022-06-18 03:49] VITALS: BMI 20.6
[2022-06-18 04:28] VITALS: BP 111/60
[2022-06-18 06:08] VITALS: O2SAT 96
[2022-06-18 07:06] LABS: Basophils % 0.7 % (0.1-2.0); Eosinophils # 0.1 K/mm3 (0.0-0.4); Eosinophils % 2.6 % (0.1-12.0); Hematocrit 34.4 % (42.0-52.0); Hemoglobin 11.3 g/dL (14.1-18.0); Lymphocytes # 1.7 K/mm3 (0.7-4.5); Lymphocytes % 38.7 % (10-50); Mean Corpuscular HGB Conc 32.9 g/dL (31.8-35.4); Mean Corpuscular Hemoglobin 32.4 pg (27.0-31.2); Mean Corpuscular Volume 98.4 fl (80-94); Mean Platelet Volume 7.9 fl (7.4-10.4); Monocytes # 0.4 K/mm3 (0.1-1.0); Neutrophils # 2.2 K/mm3 (1.8-7.8); Neutrophils % 49.1 % (37.0-80.0); Platelet Count 221 K/mm3 (142-424); White Blood Count 4.5 K/mm3 (4.8-10.8)
[2022-06-18 07:19] LABS: Anion Gap 6.5 mEq/L (5-15); Blood Urea Nitrogen 8 mg/dl (9-20); Calcium 7.8 mg/dl (8.4-10.2); Carbon Dioxide 25 mmol/L (22.0-30.0); Chloride 108 mmol/L (98-107); Creatinine Clearance Estimated 53 mL/min (50-200); Estimated Glomerular Filt Rate 61 ml/min (>60); GFR (African American) 73 ML/MIN (>60); Glucose 85 mg/dl (74-100); Potassium 4.5 mmoL/L (3.5-5.1); Sodium 135 mmol/L (136-145)
[2022-06-18 07:34] VITALS: BP 105/73; PULSE 109; RESP 17; TEMP 36.6; O2SAT 97
--- NOTE | 2022-06-18 10:17 | EXP.DC.SUM ---
General Admission date:: 06/17/22 Discharge date: 06/18/22 HPI HPI HPI: This is a 66-year-old male that presented to [facility] emergency department with concerns of cough and dyspnea. His past medical history significant for COPD, ongoing tobacco dependence, alcohol use disorder severe dependence, severe protein calorie malnutrition, chronic kidney disease stage III, hypertension and type 2 diabetes. In the ED imaging identified apical infiltrate consistent with pneumonia and his labs identified renal insufficiency. Sputum cultures were acquired and he was started on broad-spectrum antibiotic therapy and admitted to the medical floor. Hospital Course Hospital Course Hospital Course: The patient was admitted to the medical floor with IV antibiotic therapy. Sputum cultures have identified no growth to date and his labs and inflammatory markers were trended. His CBC identified a normal white blood cell count and his creatinine improved to baseline. His oxygen requirements transition to his usual home oxygen requirement of 2 L via nasal cannula. The patient identified improvement and inquired about discharge home to follow-up with his PCP as outpatient. Tobacco cessation education was provided. He was advised on routine outpatient evaluation for his alcohol use disorder. Abstinence for alcohol was strongly encouraged. Exam Data for Last 24 hours Vital signs and Labs for Last 24 Hours: Temp Pulse Resp BP Pulse Ox 97.9 F 109 H 17 105/73 L 97 06/18/22 07:34 06/18/22 07:34 06/18/22 07:34 06/18/22 07:34 06/18/22 07:34 Laboratory Results - last 24 hr 06/17/22 16:46: POC Glucose 159 H 06/18/22 06:45: WBC 4.5 L D, RBC 3.50 L, Hgb 11.3 L, Hct 34.4 L, MCV 98.4 H, MCH 32.4 H, MCHC 32.9, RDW 14.0, Plt Count 221, MPV 7.9, Neut % (Auto) 49.1, Lymph % (Auto) 38.7, [place] % (Auto) 9.0, Eos % (Auto) 2.6, Baso % (Auto) 0.7, Neut # (Auto) 2.2, Lymph # (Auto) 1.7, [place] # (Auto) 0.4, Eos # (Auto) 0.1, Baso # (Auto) 0.0 06/18/22 06:45: Sodium 135 L, Potassium 4.5, Chloride 108 H, Carbon Dioxide 25, Anion Gap 6.5, BUN 8 L, Creatinine 1.20, Estimated Creat Clear 53, Estimated GFR 61, Est GFR ( Amer) 73, Glucose 85, Calcium 7.8 L I & O for Last 24 hours: Intake & Output 06/15/22 06/16/22 06/17/22 06/18/22 23:59 23:59 23:59 23:59 Intake Total 1080 / 1080 300 / 300 Output Total 500 / 500 0 / 0 Balance 580 / 580 300 / 300 Weight 63.503 kg 60.4 kg 61.684 kg Microbiology Reports for the Last 24 Hours: Microbiology 06/17/22 15:00 Sputum - Expectorated Sputum Gram Stain - Final 06/17/22 15:00 Sputum - Expectorated Sputum Sputum Culture - Preliminary Constitutional Constitutional: no acute distress *Routine HEENT Exam Head: Present normocephalic Eye: Present EOMI and PERRL ENT: Present mucous membranes moist *Routine Neck Exam Neck: Present supple; Absent lymphadenopathy *Routine Respiratory Exam Respiratory: Present rhonchi, distant breath sounds and normal respiratory effort *Routine Cardiovascular Exam Cardiovascular: Present RRR *Routine Abdominal Exam Abdominal: Present soft and normoactive bowel sounds; Absent tenderness *Routine Extremities Exam Extremities: Absent cyanosis, clubbing or edema *Routine Skin Exam Skin: Present warm; Absent rash *Routine Neurological Exam Neurological: Present alert and oriented X3 Results Data Completed and Pending Labs on day of discharge: Labs from last 24 hours 06/18/22 06/18/22 06/17/22 06:45 06:45 16:46 WBC 4.5 L D RBC 3.50 L Hgb 11.3 L Hct 34.4 L MCV 98.4 H MCH 32.4 H MCHC 32.9 RDW 14.0 Plt Count 221 MPV 7.9 Neut % (Auto) 49.1 Lymph % (Auto) 38.7 [place] % (Auto) 9.0 Eos % (Auto) 2.6 Baso % (Auto) 0.7 Neut # (Auto) 2.2 Lymph # (Auto) 1.7 [place] # (Auto) 0.4 Eos # (Auto) 0.1 Baso # (Auto) 0.0 Sodium 135 L Potassium 4.5 Chloride 108 H Carbon Dioxide 25 An
--- NOTE | 2022-06-18 12:34 | P.CONPHA_ITS ---
Pharmacy Intervention Comments: Met with patient and brother to prevocational/rehabilitation counselor on discharge medications prior to discharge. Overviewed new and continued medications, including indications, possible adverse effects and mitigation strategies for each. Instructed patient to stop meloxicam. [facility] was working on transferring the prescription from [facility] in [place], where new prescription was sent (brother proposed that the confusion may have arisen from daughter's surname). Patient and family verbalized understanding and had no other questions or concerns at this time. -An Palma, PharmD Candidate 2022
--- NOTE | 2022-06-19 13:50 | CARE MANAGER ---
Contacted patient related to hospital discharge. He states he is feeling better. It appeared his antibiotic had gone to wrong pharmacy, but he states it got fixed and he picked it up. He denies any questions or concerns. CANDIS Shepard
== END 2022-06-18 11:10 | disposition home or self-care (01) ==
LOC: ER 22:45 → 2ND 22:57
PROVIDERS: Emergency Medicine; Admitting Provider Nurse Practitioner Family; Emergency Provider Student in an Organized Health Care Education/Training Program; PCP Internal Medicine Adolescent Medicine; Visit Provider Family Medicine
DX: J44.1 Chronic obstructive pulmonary disease with (acute) exacerbation (principal); E11.22 Type 2 diabetes mellitus with diabetic chronic kidney disease; F10.20 Alcohol dependence, uncomplicated; J18.9 Pneumonia, unspecified organism; Z79.84 Long term (current) use of oral hypoglycemic drugs; Z79.899 Other long term (current) drug therapy; N18.30 Chronic kidney disease, stage 3 unspecified; E43 Unspecified severe protein-calorie malnutrition; Z68.20 Body mass index [BMI] 20.0-20.9, adult; I12.9 Hypertensive chronic kidney disease with stage 1 through stage 4 chronic kidney disease, or unspecified chronic kidney disease; Z99.81 Dependence on supplemental oxygen; Z20.822 Contact with and (suspected) exposure to COVID-19
CPT/HCPCS: G0378; 36415; 71045; 80048; 80053; 81001; 82009; 82962; 83735; 84100; 84443; 85025; 87070; 87077; 87186; 87205; 94640; 97162; 99285; C9803; J0696; J2405; U0003; U0005

== ENCOUNTER 2022-06-27 14:02 | Emergency (ER) | payer MEDICARE, OTHER, SELFPAY ==
[2022-06-27] VITALS (8 sets, daily range): BP systolic 115–136; BP diastolic 54–82; PULSE 89–104; RESP 12–21; TEMP 36.7–36.8; O2SAT 94–100; BMI 19.3
--- NOTE | 2022-06-27 14:05 | HMH.EDGENADL ---
Discharge Plan Disposition Patient Disposition: Home, Self-Care Condition: Fair Prescriptions Prescriptions: No Action metformin 1,000 mg tablet 1,000 mg PO BID Label Comments: TAKE ONE TABLET BY MOUTH TWICE DAILY Letty Ellipta 100-62.5-25 mcg blister with device 1 inh INHALATION DAILY aspirin 325 MG tablet 325 mg PO DAILY simvastatin 40 tablet 40 mg PO HS albuterol sulfate 108 HFA aerosol inhaler 2 puffs IH Q6HP PRN (Reason: Shortness Of Breath) omeprazole magnesium 20 MG tablet,delayed release (DR/EC) 20 mg PO DAILY quetiapine 200 MG tablet extended release 24 hr 200 mg PO HS Referrals Follow up/Referrals: Provider,Referral, MD [Primary Care Provider] - See instructions Activity Restrictions/Add. Instructions Additional Instructions/Restrictions: Please follow-up with your primary care doctor in the next 3 to 4 days. Your kidney function is abnormal. Your sodium level is also low. This needs follow-up. Return to the emergency department if you feel worse in any way. Stop drinking alcohol. Clinical Impressions Clinical Impression: Chronic alcohol abuse, Chronic renal insufficiency, Acute hyponatremia Instructions Patient Instructions: DI for Muscle Weakness Discharge ED Provider: Danny Lorenzana General Adult HPI General Chief complaint: Weakness Stated complaint: weakness Time Seen by Provider: 06/27/22 14:05 Mode of Arrival: EMS Source of Information: Patient History of Present Illness HPI narrative: The patient presents to the emergency department complaining of generalized weakness and that he feels similarly to when he was last admitted to the hospital for dehydration. He admits to drinking a couple of beers today. He states that he vomited yesterday. He denies any other symptoms. Onset (ago): day(s) (1) Related Data Home Medications Medication Instructions Recorded Confirmed albuterol sulfate 90 mcg/actuation 2 puffs IH Q6HP PRN Shortness Of 05/16/18 06/27/22 aerosol inhaler Breath aspirin 325 mg tablet 325 mg PO DAILY CAD 05/16/18 06/27/22 simvastatin 40 mg tablet 40 mg PO HS Cholesterol 05/16/18 06/27/22 omeprazole magnesium 20 mg 20 mg PO DAILY acid reflux 10/06/20 06/27/22 tablet,delayed release quetiapine 200 mg tablet,extended 200 mg PO HS MOOD 10/07/20 06/27/22 release 24 hr fluticasone fur. 100 mcg-umeclid 1 inh inhalation DAILY COPD 03/26/22 06/27/22 62.5 mcg-vilant 25 mcg inhalat.powder (Trelegy Ellipta) metformin 1,000 mg tablet 1,000 mg PO BID Diabetes 03/26/22 06/27/22 Allergies Allergy/AdvReac Type Severity Reaction Status Date / Time No Known Allergies Allergy Verified 07/19/21 16:27 [facility] Disclaimer: The information contained in this section may have been updated after the patient was seen, as this information can be updated by other users. Medical History (Updated 06/27/22 @ 17:08 by Danny Lorenzana MD) Acute alcoholic pancreatitis Acute pancreatitis Acute renal failure [place] (acute kidney injury) Alcohol abuse Alcohol withdrawal Alcoholic pancreatitis Anxiety Arthritis Asthma Chronic pancreatitis Colon cancer COPD (chronic obstructive pulmonary disease) Depression Diabetes mellitus, type 2 History of gastroesophageal reflux (GERD) Hyperlipidemia Hypertension Hypomagnesemia Hyponatremia Hyponatremia Illiteracy Irritable bowel syndrome (IBS) Pneumonia Pneumonia Polysubstance abuse Protein-calorie malnutrition, mild Protein-calorie malnutrition, moderate Transaminitis Surgical History History of colon resection History of colonoscopy Family History (Updated 03/25/22 @ 18:38 by Lizbeth Villanueva RN) Mother Family history of diabetes mellitus type II Social History (Updated 06/17/22 @ 01:49 by Rossi Worthy, CANDIS) Smoking Status: Current every day smoker tobacco type: cigarettes packs per day: 1 second
[2022-06-27 14:21] LABS: Basophils % 0.7 % (0.1-2.0); Eosinophils # 0.1 K/mm3 (0.0-0.4); Hematocrit 32.6 % (42.0-52.0); Hemoglobin 10.4 g/dL (14.1-18.0); Lymphocytes # 1.4 K/mm3 (0.7-4.5); Lymphocytes % 27.8 % (10-50); Mean Corpuscular HGB Conc 32.1 g/dL (31.8-35.4); Mean Corpuscular Hemoglobin 32.2 pg (27.0-31.2); Mean Corpuscular Volume 100.5 fl (80-94); Mean Platelet Volume 6.6 fl (7.4-10.4); Monocytes # 0.4 K/mm3 (0.1-1.0); Monocytes % 8.2 % (1.7-9.3); Neutrophils # 3.2 K/mm3 (1.8-7.8); Neutrophils % 61.3 % (37.0-80.0); Platelet Count 224 K/mm3 (142-424); Red Blood Count 3.24 M/mm3 (4.60-6.20); Red Cell Distribution Width 13.7 % (11.5-17.5); White Blood Count 5.2 K/mm3 (4.8-10.8)
[2022-06-27 14:25] LABS: Chloride 97 mmol/L (98-107); Potassium 4.1 mmoL/L (3.5-5.1); Sodium 128 mmol/L (136-145)
[2022-06-27 14:28] LABS: Alanine Aminotransferase 23 U/L (12-78); Albumin Level 2.5 g/dl (3.5-5.0); Alkaline Phosphatase 140 U/L (38-126); Anion Gap 20.1 mEq/L (5-15); Aspartate Amino Transferase 31 U/L (17-59); Bilirubin,Total 0.2 mg/dl (0.2-1.3); Blood Urea Nitrogen 12 mg/dl (9-20); Carbon Dioxide 15 mmol/L (22.0-30.0); Creatinine Clearance Estimated 25 mL/min (50-200); Estimated Glomerular Filt Rate 27 ml/min (>60); GFR (African American) 33 ML/MIN (>60); Globulin 2.4 g/dL (1.3-3.2); Glucose 87 mg/dl (74-100); Lipase 12 U/L (23-300); Total Protein,Serum 4.9 g/dl (6.3-8.2)
[2022-06-27 14:29] LABS: Ethyl Alcohol 57 mg/dl (0-10)
--- NOTE | 2022-06-27 14:34 | PC.NURSE ---
2L NC placed per Attending for saturation <90%
--- NOTE | 2022-06-27 14:40 | PC.NURSE ---
Chasidy.Cardenas rounded on patient
--- NOTE | 2022-06-27 15:24 | PC.NURSE ---
checke on pt he was lying in bed nothing needed
[2022-06-27 16:05] LABS: Coronavirus 19, PCR Not Detected (NotDetected); Influenza A, PCR Not Detected (NotDetected); Influenza B, PCR Not Detected (NotDetected)
== END 2022-06-27 17:48 | disposition home or self-care (01) ==
PROVIDERS: Emergency Provider Emergency Medicine
DX: E87.1 Hypo-osmolality and hyponatremia (principal); R53.1 Weakness; N18.9 Chronic kidney disease, unspecified; F10.20 Alcohol dependence, uncomplicated; K85.20 Alcohol induced acute pancreatitis without necrosis or infection; F41.9 Anxiety disorder, unspecified; M19.90 Unspecified osteoarthritis, unspecified site; J45.909 Unspecified asthma, uncomplicated; K86.0 Alcohol-induced chronic pancreatitis; Z85.038 Personal history of other malignant neoplasm of large intestine; J44.9 Chronic obstructive pulmonary disease, unspecified; E11.9 Type 2 diabetes mellitus without complications; K21.9 Gastro-esophageal reflux disease without esophagitis; I10 Essential (primary) hypertension; F19.10 Other psychoactive substance abuse, uncomplicated; Z87.19 Personal history of other diseases of the digestive system; F17.210 Nicotine dependence, cigarettes, uncomplicated; Z83.3 Family history of diabetes mellitus; Z20.822 Contact with and (suspected) exposure to COVID-19
CPT/HCPCS: 80053; 83690; 85025; 96360; 99285; C9803; U0003; U0005

== ENCOUNTER 2022-07-04 11:25 | Inpatient (IN) | payer MEDICARE, OTHER, SELFPAY ==
--- NOTE | 2022-07-04 11:46 | PC.NURSE ---
patient arrived to floor by wheelchair from [facility]
[2022-07-04 11:49] VITALS: BP 97/75; PULSE 129; RESP 22; TEMP 36.3; O2SAT 94; BMI 19.2
--- NOTE | 2022-07-04 11:53 | XR_ITS ---
FINAL REPORT CLINICAL HISTORY: Shortness of breath COMPARISON: 06/17/2022 FINDINGS: Two views of the chest were obtained. The heart size and pulmonary vascularity are within normal limits. The mediastinum is normal. Hyperinflation is noted consistent with COPD. There is biapical scarring which is stable. Again noted is a large bulla in the medial right thorax. There is no pneumothorax. The bony thorax is intact. IMPRESSION: Large bulla medial right thorax again noted. Stable biapical scarring. Reviewed, Interpreted and Dictated by Niko Glez III, MD Transcribed by Lauryn Chisholm Authenticated and [facility]
[2022-07-04 11:57] VITALS: PULSE 120; O2SAT 98
[2022-07-04 12:27] LABS: Coronavirus 19, PCR Not Detected (NotDetected); Influenza A, PCR Not Detected (NotDetected); Influenza B, PCR Not Detected (NotDetected)
--- NOTE | 2022-07-04 12:28 | PC.NURSE ---
tech note; notified nurse of admission vital signs.
[2022-07-04 12:37] LABS: Basophils # 0.1 K/mm3 (0-0.2); Eosinophils # 0.1 K/mm3 (0.0-0.4); Eosinophils % 0.8 % (0.1-12.0); Hematocrit 32.4 % (42.0-52.0); Hemoglobin 10.4 g/dL (14.1-18.0); Lymphocytes # 1.4 K/mm3 (0.7-4.5); Lymphocytes % 21.8 % (10-50); Mean Corpuscular HGB Conc 32.3 g/dL (31.8-35.4); Mean Corpuscular Hemoglobin 32.4 pg (27.0-31.2); Mean Corpuscular Volume 100.2 fl (80-94); Mean Platelet Volume 8.2 fl (7.4-10.4); Monocytes # 0.3 K/mm3 (0.1-1.0); Monocytes % 4.7 % (1.7-9.3); Neutrophils # 4.5 K/mm3 (1.8-7.8); Neutrophils % 71.6 % (37.0-80.0); Platelet Count 231 K/mm3 (142-424); Red Blood Count 3.23 M/mm3 (4.60-6.20); Red Cell Distribution Width 13.8 % (11.5-17.5); White Blood Count 6.2 K/mm3 (4.8-10.8)
[2022-07-04 12:48] LABS: Alanine Aminotransferase 19 U/L (12-78); Albumin Level 2.9 g/dl (3.5-5.0); Alkaline Phosphatase 108 U/L (38-126); Amylase 48 U/L (30-110); Anion Gap 13.4 mEq/L (5-15); Aspartate Amino Transferase 31 U/L (17-59); Bilirubin,Total 0.2 mg/dl (0.2-1.3); Blood Urea Nitrogen 17 mg/dl (9-20); Calcium 6.4 mg/dl (8.4-10.2); Carbon Dioxide 22 mmol/L (22.0-30.0); Chloride 110 mmol/L (98-107); Creatinine Clearance Estimated 25 mL/min (50-200); Estimated Glomerular Filt Rate 27 ml/min (>60); GFR (African American) 33 ML/MIN (>60); Globulin 2.8 g/dL (1.3-3.2); Glucose 88 mg/dl (74-100); Potassium 5.4 mmoL/L (3.5-5.1); Sodium 140 mmol/L (136-145); Total Protein,Serum 5.7 g/dl (6.3-8.2)
[2022-07-04 12:51] LABS: Ethyl Alcohol < 10 mg/dl (0-10)
[2022-07-04 12:52] LABS: Lactic Acid 3.4 mmol/L (0.7-2.1)
[2022-07-04 12:53] LABS: Magnesium 0.5 mg/dl (1.6-2.3)
[2022-07-04 13:45] VITALS: BMI 19.1
[2022-07-04 16:00] VITALS: BP 131/72; PULSE 100; RESP 18; TEMP 36.8; O2SAT 98
[2022-07-04 16:33] LABS: Reflex Lactic Add Lactic Reflex
--- NOTE | 2022-07-04 17:02 | EXP.HP ---
History of Present Illness *Admission Date: 07/04/22 *Reason for visit:: Low blood pressure, tachycardia *History of present illness: 66-year-old white male with long history of recurrent and intermittent alcoholism, history of colon cancer status post resection and prostatectomy status post cancer resection, also heavy smoker, who presented to my office today after being in the ER over the weekend and being diagnosed with dehydration and acute kidney injury. His creatinine in the ER was 2.4 however he was given fluids and able to urinate and drink and was discharged home and he came back to see me today in the office. Did not feel much better. His brother was very concerned about his oral intake. He was weak, blood pressure was low and he was tachycardic. He reports he does not eat much at home. He is not sure why. He reports that he feels full quickly and that he occasionally feels like he has bloating. Denies vomiting or diarrhea. Admitted to hospital for IV fluids and further diagnostic testing. [facility] Disclaimer: The information contained in this section may have been updated after the patient was seen, as this information can be updated by other users. Medical History (Updated 07/04/22 @ 17:04 by Shankar Raya MD) Acute alcoholic pancreatitis Acute pancreatitis Acute renal failure [place] (acute kidney injury) Alcohol abuse Alcohol withdrawal Alcoholic pancreatitis Anxiety Arthritis Asthma Chronic pancreatitis Colon cancer COPD (chronic obstructive pulmonary disease) Depression Diabetes mellitus, type 2 History of gastroesophageal reflux (GERD) Hyperlipidemia Hypertension Hypomagnesemia Hyponatremia Hyponatremia Illiteracy Irritable bowel syndrome (IBS) Pneumonia Pneumonia Polysubstance abuse Protein-calorie malnutrition, mild Protein-calorie malnutrition, moderate Transaminitis Surgical History History of colon resection History of colonoscopy Family History Family history of diabetes mellitus type II Mother Social History Smoking Status: Current every day smoker tobacco type: cigarettes packs per day: 1 second hand exposure: Yes alcohol intake: current counseling provided: provider counseling substance use type: marijuana current occupational status: disabled Travel in the last 8 weeks: None household members: none housing: house current occupational exposures/hazards: No caffeine: Yes (coffee) physical activity: none do you feel safe at home: Yes Meds Home Medications and Allergies Home Medications Medication Instructions Recorded Confirmed Type albuterol sulfate 90 mcg/actuation 2 puffs IH Q6HP PRN Shortness Of 05/16/18 07/04/22 History aerosol inhaler Breath aspirin 325 mg tablet 325 mg PO DAILY heart health 05/16/18 07/04/22 History simvastatin 40 mg tablet 40 mg PO HS Cholesterol 05/16/18 07/04/22 History omeprazole magnesium 20 mg 20 mg PO DAILY acid reflux 10/06/20 07/04/22 History tablet,delayed release quetiapine 200 mg tablet,extended 200 mg PO HS sleep/behaviors 10/07/20 07/04/22 History release 24 hr fluticasone fur. 100 mcg-umeclid 1 inh inhalation DAILY COPD 03/26/22 07/04/22 History 62.5 mcg-vilant 25 mcg inhalat.powder (Trelegy Ellipta) ergocalciferol (vitamin D2) 1,250 50,000 unit PO .TWICE A DAY 07/04/22 07/04/22 History mcg (50,000 unit) capsule Supplement meloxicam 15 mg tablet 15 mg PO DAILY arthritis pain 07/04/22 07/04/22 History metformin 1,000 mg tablet 1,000 mg PO BID Diabetes 07/04/22 07/04/22 History thiamine HCl (vitamin B1) 100 mg 100 mg PO DAILY Supplement 07/04/22 07/04/22 History tablet New Prescriptions to Start Prescriptions: Allergies Allergy/AdvReac Type Severity Reaction Status Date / Time No Known Allergies Allergy Verified 07/19/21 16:27
[2022-07-04 17:48] LABS: Lactic Acid Follow Up (RFLX 1) 3.7 mmol/L (0.7-2.1)
[2022-07-04 19:24] LABS: Reflex Lactic (2 hrs) Add Lactic Reflex
[2022-07-04 20:00] VITALS: BP 132/79; PULSE 96; RESP 20; TEMP 36.9; O2SAT 100; O2SAT 97
[2022-07-04 20:07] LABS: Chloride 111 mmol/L (98-107); Potassium 5.7 mmoL/L (3.5-5.1); Sodium 136 mmol/L (136-145)
[2022-07-04 20:10] LABS: Anion Gap 13.7 mEq/L (5-15); Blood Urea Nitrogen 16 mg/dl (9-20); Calcium 6.5 mg/dl (8.4-10.2); Carbon Dioxide 17 mmol/L (22.0-30.0); Creatinine Clearance Estimated 27 mL/min (50-200); Estimated Glomerular Filt Rate 30 ml/min (>60); GFR (African American) 36 ML/MIN (>60); Glucose 125 mg/dl (74-100)
[2022-07-04 20:26] LABS: Lactic Acid Follow up (RFLX 2) 4.3 mmol/L (0.7-2.1)
[2022-07-04 20:30] LABS: Magnesium 1.1 mg/dl (1.6-2.3)
[2022-07-05] VITALS: BP 136/78; PULSE 97; RESP 22; TEMP 36.8; O2SAT 98
[2022-07-05 00:27] LABS: Microscopic, Urine URINE MICROSCOPIC (MICROSCOPIC)
[2022-07-05 00:52] LABS: Appearance,Urine Clear (Clear); Color,Urine Yellow (Yellow); Glucose,Urine (UA) Negative (Negative); Protein,Urine Negative (Negative); Specific Gravity, Urine 1.025 (1.005-1.030)
[2022-07-05 00:53] LABS: Bilirubin,Urine Negative (Negative); Blood, Urine Negative (Negative); Ketones,Urine Negative (Negative); Leukocyte Esterase,Urine Negative (Negative); Nitrate,Urine Negative (Negative); Urobilinogen,Urine 0.2 EU/dl (0.2)
[2022-07-05 01:18] LABS: Hyaline Casts,Urine Occasional #/lpf (0)
[2022-07-05 01:19] LABS: Bacteria,Urine Trace /lpf
--- NOTE | 2022-07-05 03:37 | PC.NURSE ---
dose patient at 5am per [facility] charge nurse.
[2022-07-05 04:00] VITALS: BP 115/73; PULSE 64; RESP 18; TEMP 36.8; O2SAT 95; BMI 21.9
--- NOTE | 2022-07-05 04:30 | PC.NURSE ---
Pt. had no issues during the night.
--- NOTE | 2022-07-05 06:00 | CT_ITS ---
PROCEDURE INFORMATION: Exam: CT Abdomen And Pelvis Without Contrast Exam date and time: 07/05/2022 7:13 AM Age: 66 years old Clinical indication: Bloating and nausea; Additional info: Abd pain, history of pancreas abnormality-- TECHNIQUE: Imaging protocol: Computed tomography of the abdomen and pelvis without contrast. Radiation optimization: All CT scans at this facility use at least one of these dose optimization techniques: automated exposure control; mA and/or kV adjustment per patient size (includes targeted exams where dose is matched to clinical indication); or iterative reconstruction. Other contrast: Oral, gastrograffin , 30ml ; Other protocol: This patient has received 3 known CTs and 0 known cardiac nuclear medicine studies in the 12 months prior to the current study. COMPARISON: CT ABDOMEN PELVIS WO CON 07/19/2021 4:06 PM FINDINGS: Detailed evaluation of the abdominal and pelvic viscera is somewhat limited in the absence of intravenous contrast. Lungs: Emphysematous change, interstitial prominence, mild dependent airspace disease, and small pleural effusions.. Stable 4 mm subpleural nodule in the anterior segment of the right lower lobe (series 3: Image 4). For patients at low risk (minimal or absent history of smoking and of other known risk factors), no routine follow-up is indicated. For patients at high risk (history of smoking or of other known risk factors), consider optional CT Chest at 12 months. (Reference: Jurgen) Liver: Hepatic granulomata. Gallbladder and bile ducts: Unremarkable gallbladder. Pancreas: Absence of the pancreatic tail. Multifocal pancreatic calcifications consistent with chronic pancreatitis along with biliary ductal dilatation and poorly defined hypodensity in the pancreatic head. Spleen: Splenic granulomata. Adrenal glands: Punctate right adrenal calcification. Kidneys and ureters: Normal renal morphology. No hydronephrosis. Renal vascular calcification. Bilateral infiltration of perinephric fat. Stomach and bowel: Gastroduodenal wall thickening. Small bowel dilatation and air-fluid levels without a focal transition zone. Colonic dilatation and copious stool, in a pattern of constipation. Appendix: No acute appendicitis. Intraperitoneal space: No significant free fluid. Vasculature: Prominent vascular calcification. No abdominal aortic aneurysm. Lymph nodes: Subcentimeter lymph nodes. Urinary bladder: Bladder dilatation. Reproductive: Vas deferens calcification. Status post prostatectomy. Bones/joints: Osteopenia, Schmorl's nodes, degenerative change, and disc bulging. Soft tissues: Unremarkable. When correlating with the previous study, no significant interval changes are present. IMPRESSION: 1. Gastroduodenal wall thickening. 2. Multifocal pancreatic calcifications consistent with chronic pancreatitis along with biliary ductal dilatation and poorly defined hypodensity in the pancreatic head. 3. Combined small bowel and colonic dilatation along with copious stool. 4. Additional findings as described above.
[2022-07-05 08:00] VITALS: BP 135/80; PULSE 90; RESP 16; TEMP 36.4; O2SAT 98; O2SAT 99
--- NOTE | 2022-07-05 09:37 | EXP.ACUTE.PN ---
Subjective *Date: 07/05/22 *Time: 09:37 Interval history: Overall patient feels better, better energy levels. Has eaten a little bit for supper and for breakfast after his CT scan. No fever. No coughing. Medical Exam Vital signs and Labs for Last 24 Hours: Vital Signs Temp Pulse Resp BP Pulse Ox 07/05/22 08:00 97.5 F L 90 16 135/80 99 07/05/22 04:00 98.3 F 64 18 115/73 95 07/05/22 00:00 98.3 F 97 H 22 136/78 98 07/04/22 20:00 98.5 F 96 H 20 132/79 100 07/04/22 20:00 97 07/04/22 16:00 98.3 F 100 H 18 131/72 98 07/04/22 11:57 120 H 98 07/04/22 11:49 97.4 F L 129 H 22 97/75 L 94 L Intake and Output 07/04/22 07/05/22 07/05/22 19:59 03:59 11:59 Intake Total 2880 / 3350 470 / 3350 Output Total 750 / 1100 350 / 1100 Balance 2880 / 2250 -280 / 2250 -350 / 2250 Intake: Intake, Oral Amount 480 / 480 Intake, Total IV Amount 470 / 470 Calcium Gluconate 2,000 mg In 0 120 / 120 .9 % Sodium Chloride 100 ml @ 60 mls/hr IV ONCE ONE Rx#: [id number] Magnesium Sulfate in Water 2 gm 350 / 350 In 50 ml @ 50 mls/hr IV ONCE ONE Rx#:[id number] Infusion Intake 2400 / 2400 0.9 % Sodium Chloride 2,000 ml 2400 / 2400 @ 500 mls/hr IV .Q4H [facility] Rx#: [id number] Output: Output, Urine Amount 750 / 1100 350 / 1100 Other: Weight 126 lb 8.725 oz 144 lb 8 oz Patient Weight 07/05/22 11:59 Weight 144 lb 8 oz Laboratory Results - last 24 hr 07/04/22 12:15: SARS-CoV-2 (PCR) Not detected, Influenza A Untype (PCR) Not detected, Influenza Type B (PCR) Not detected 07/04/22 12:27: WBC 6.2, RBC 3.23 L, Hgb 10.4 L, Hct 32.4 L, MCV 100.2 H, MCH 32.4 H, MCHC 32.3, RDW 13.8, Plt Count 231, MPV 8.2, Neut % (Auto) 71.6, Lymph % (Auto) 21.8, [place] % (Auto) 4.7, Eos % (Auto) 0.8, Baso % (Auto) 1.0, Neut # (Auto) 4.5, Lymph # (Auto) 1.4, [place] # (Auto) 0.3, Eos # (Auto) 0.1, Baso # (Auto) 0.1 07/04/22 12:27: Sodium 140, Potassium 5.4 H, Chloride 110 H, Carbon Dioxide 22, Anion Gap 13.4, BUN 17, Creatinine 2.40 H, Estimated Creat Clear 25, Estimated GFR 27 L, Est GFR ( Amer) 33 L, Glucose 88, Calcium 6.4 L, Magnesium 0.5 L, Total Bilirubin 0.2, AST 31, ALT 19, Alkaline Phosphatase 108, Total Protein 5.7 L, Albumin 2.9 L, Globulin 2.8, Albumin/Globulin Ratio 1.0 L, Amylase 48 07/04/22 12:27: Lactate 3.4 H 07/04/22 12:27: Plasma/Serum Alcohol < 10 07/04/22 17:13: Lactate 3.7 H 07/04/22 19:40: Sodium 136, Potassium 5.7 H, Chloride 111 H, Carbon Dioxide 17 L, Anion Gap 13.7, BUN 16, Creatinine 2.20 H, Estimated Creat Clear 27, Estimated GFR 30 L, Est GFR ( Amer) 36 L, Glucose 125 H D, Calcium 6.5 L 07/04/22 19:40: Magnesium 1.1 L D 07/04/22 19:40: Lactate 4.3 H 07/05/22 : Urine Color Yellow, Urine Appearance Clear, Urine pH 6.0, Ur Specific [place] 1.025, Urine Protein Negative, Urine Glucose (UA) Negative, Urine Ketones Negative, Urine Blood Negative, Urine Nitrate Negative, Urine Bilirubin Negative, Urine Urobilinogen 0.2, Ur Leukocyte Esterase Negative, Urine RBC None, Urine WBC 3-5, Ur Squamous Epith Cells 5-10, Urine Bacteria Trace, Hyaline Casts Occasional I & O for Labs for Last 24 Hours: Intake & Output 07/02/22 07/03/22 07/04/22 07/05/22 11:59 11:59 11:59 11:59 Intake Total 3350 / 3350 Output Total 1100 / 1100 Balance 2250 / 2250 Weight 126 lb 9 oz 144 lb 8 oz Microbiology Reports for the Last 24 Hours: Microbiology 07/04/22 14:27 Anus CRE Surveillance Culture - Final No growth. Comment:: Alert, still appears chronically ill but appears better hydrated. Lungs have good air movement. Heart rate regular. Abdomen slightly tender, scaphoid, no masses. No point tenderness. No extremity edema or clubbing. Assessment and Plan *Assessment and plan (1) Severe protein-calorie malnutrition: Status: Acute Category: Medical Code(s): E43 - Unspe
[2022-07-05 10:23] LABS: Blood Urea Nitrogen 15 mg/dl (9-20); Carbon Dioxide 21 mmol/L (22.0-30.0); Chloride 109 mmol/L (98-107); Creatinine Clearance Estimated 40 mL/min (50-200); Estimated Glomerular Filt Rate 41 ml/min (>60); GFR (African American) 49 ML/MIN (>60); Glucose 134 mg/dl (74-100); Magnesium 1.5 mg/dl (1.6-2.3); Sodium 136 mmol/L (136-145)
[2022-07-05 12:00] VITALS: BP 137/83; PULSE 90; RESP 20; TEMP 36.3; O2SAT 93
--- NOTE | 2022-07-05 15:19 | PC.NURSE ---
pt vomiting, md hallman made aware, 4mg ondansetron iv given
[2022-07-05 16:00] VITALS: BP 137/79; PULSE 86; RESP 16; TEMP 36.6; O2SAT 99
--- NOTE | 2022-07-05 16:43 | PC.NURSE ---
one large diarrhea this shift. one episode of emesis treated with prn zofran 4mg iv with good effectiveness noted.
[2022-07-05 20:00] VITALS: BP 140/86; PULSE 101; RESP 20; TEMP 37; O2SAT 94
[2022-07-06] VITALS: BP 125/73; PULSE 86; RESP 20; TEMP 37.2; O2SAT 97
--- NOTE | 2022-07-06 03:57 | PC.NURSE ---
PATIENT VERY QUIET. DENIES PAIN/DISCOMFORT. NO S/S OF ALCOHOL WITHDRAWAL. HAS THIGH HIGH TEDS ON BUT WILL NOT LET US TURN ON, REFUSES SCUDS. PATIENT TEACHING RE: DVTs. HAS NOT USED 02 THIS SHIFT. SATS RUNNING 94-97 ON ROOM AIR. AMBULATES TO BR WITH SBA. HAS HAD 1 LOOSE STOOL. (HAD LAXATIVE YESTERDAY AM).VITAL SIGNS STABLE/AFEBRILE.
[2022-07-06 04:00] VITALS: BP 126/78; PULSE 89; RESP 18; TEMP 36.9; O2SAT 96; BMI 22.2
[2022-07-06 08:00] VITALS: BP 119/71; PULSE 102; RESP 18; TEMP 36.6; O2SAT 95; O2SAT 96
[2022-07-06 08:48] LABS: Basophils % 0.7 % (0.1-2.0); Chloride 108 mmol/L (98-107); Eosinophils # 0.2 K/mm3 (0.0-0.4); Eosinophils % 4.4 % (0.1-12.0); Hematocrit 31.2 % (42.0-52.0); Hemoglobin 9.7 g/dL (14.1-18.0); Lymphocytes # 1.7 K/mm3 (0.7-4.5); Lymphocytes % 39.1 % (10-50); Mean Corpuscular HGB Conc 31.2 g/dL (31.8-35.4); Mean Corpuscular Hemoglobin 31.3 pg (27.0-31.2); Mean Corpuscular Volume 100.5 fl (80-94); Mean Platelet Volume 7.5 fl (7.4-10.4); Monocytes # 0.4 K/mm3 (0.1-1.0); Monocytes % 8.1 % (1.7-9.3); Neutrophils # 2.1 K/mm3 (1.8-7.8); Neutrophils % 47.8 % (37.0-80.0); Platelet Count 206 K/mm3 (142-424); Red Cell Distribution Width 13.8 % (11.5-17.5); Sodium 134 mmol/L (136-145); White Blood Count 4.4 K/mm3 (4.8-10.8)
[2022-07-06 08:50] LABS: Blood Urea Nitrogen 14 mg/dl (9-20); Creatinine Clearance Estimated 46 mL/min (50-200); Estimated Glomerular Filt Rate 47 ml/min (>60); GFR (African American) 57 ML/MIN (>60)
[2022-07-06 08:51] LABS: Calcium 6.9 mg/dl (8.4-10.2); Carbon Dioxide 25 mmol/L (22.0-30.0); Glucose 121 mg/dl (74-100); Magnesium 1.6 mg/dl (1.6-2.3)
[2022-07-06 09:26] VITALS: PULSE 104; PULSE 96; O2SAT 96
[2022-07-06 10:17] VITALS: O2SAT 96
[2022-07-06 10:54] LABS: CA 19-9 56 U/mL (0-35); CEA 6.2 ng/mL (0.0-4.7)
[2022-07-06 11:47] VITALS: BP 133/83; PULSE 101; RESP 16; TEMP 36.4; O2SAT 96
--- NOTE | 2022-07-06 13:36 | EXP.DC.SUM ---
General Admission date:: 07/04/22 Discharge date: 07/06/22 HPI HPI HPI: 66-year-old white male with long history of recurrent and intermittent alcoholism, history of colon cancer status post resection and prostatectomy status post cancer resection, also heavy smoker, who presented to my office today after being in the ER over the weekend and being diagnosed with dehydration and acute kidney injury. His creatinine in the ER was 2.4 however he was given fluids and able to urinate and drink and was discharged home and he came back to see me today in the office. Did not feel much better. His brother was very concerned about his oral intake. He was weak, blood pressure was low and he was tachycardic. He reports he does not eat much at home. He is not sure why. He reports that he feels full quickly and that he occasionally feels like he has bloating. Denies vomiting or diarrhea. Admitted to hospital for IV fluids and further diagnostic testing. Hospital Course Hospital Course Hospital Course: Patient was admitted, found to have profound hypomagnesemia and hypocalcemia as well as acute kidney injury superimposed on his chronic kidney disease. IV fluids were given cautiously and he is magnesium and calcium replaced intravenously with several runs of each. He improved nicely. CT scan of abdomen was done which showed evidence of chronic pancreatitis but no worrisome symptoms of malignancy. Given his weight loss and chronic abdominal pain I did check a CA 19-9 and CEA levels, those are pending at the time of discharge. Patient was started on Protonix and also started on Creon therapy which seemed to help and eating and he was able to eat supper last night and 2 meals today and felt much better. Will be discharged home. He will be continued on Protonix and Creon. I will see him in my office on July 10 at 9 AM for follow-up hospital visit. Please note, I discussed with he and his brother on the day of admission whether or not home health would be helpful for him who will get care management put in a consult for him to see if he would qualify. He does not drive and leaves his home only with a great deal of difficulty. Exam Data for Last 24 hours Vital signs and Labs for Last 24 Hours: Temp Pulse Resp BP Pulse Ox 97.5 F L 101 H 16 133/83 96 07/06/22 11:47 07/06/22 11:47 07/06/22 11:47 07/06/22 11:47 07/06/22 11:47 Laboratory Results - last 24 hr 07/04/22 12:27: Carcinoembryonic Ag 6.2 H, CA 19-9 Antigen 56 H 07/06/22 08:23: WBC 4.4 L D, RBC 3.10 L, Hgb 9.7 L, Hct 31.2 L, MCV 100.5 H, MCH 31.3 H, MCHC 31.2 L, RDW 13.8, Plt Count 206, MPV 7.5, Neut % (Auto) 47.8, Lymph % (Auto) 39.1, [place] % (Auto) 8.1, Eos % (Auto) 4.4, Baso % (Auto) 0.7, Neut # (Auto) 2.1, Lymph # (Auto) 1.7, [place] # (Auto) 0.4, Eos # (Auto) 0.2, Baso # (Auto) 0.0 07/06/22 08:23: Sodium 134 L, Potassium 5.0, Chloride 108 H, Carbon Dioxide 25, Anion Gap 6.0, BUN 14, Creatinine 1.50 H, Estimated Creat Clear 46, Estimated GFR 47 L, Est GFR ( Amer) 57 L, Glucose 121 H, Calcium 6.9 L, Magnesium 1.6 I & O for Last 24 hours: Intake & Output 07/04/22 07/05/22 07/06/22 07/07/22 11:59 11:59 11:59 11:59 Intake Total 3590 / 3590 1933 / 1933 Output Total 1100 / 1100 350 / 350 Balance 2490 / 2490 1583 / 1583 Weight 126 lb 9 oz 144 lb 8 oz 146 lb 9.6 oz Microbiology Reports for the Last 24 Hours: Microbiology 06/17/22 15:00 Sputum - Expectorated Sputum Gram Stain - Final 06/17/22 15:00 Sputum - Expectorated Sputum Sputum Culture - Preliminary Constitutional Constitutional: no acute distress *Routine HEENT Exam Head: Present normocephalic Eye: Present EOMI and PERRL ENT: Present mucous membranes moist *Routine Neck Exam Neck: Present supple; Absent lymphadenopathy *Routine Respiratory Exam Respiratory: Present rhonchi, distant breath sounds and normal respiratory effort *Routine Cardiovascular Exam Cardiovascular: Present RRR *Ro
--- NOTE | 2022-07-06 14:10 | HMH.PHAINT1 ---
Pharmacy Intervention Comments: DISCHARGE MEDICATION COUNSELING PROVIDED. DISCUSSED STOPPING THE OMEPRAZOLE AND MELOXICAM, HOLD THE METFORMIN UNTIL 07/20/2022. START THE FOLLOWING MEDICATIONS: -PANTOPRAZOLE (FOR STOMACH ACID/REFLUX, TWICE DAILY, HEADACHE POSSIBLE) -ZENPEP (PANCREATIC INSUFFICIENCY, ONE CAPSULE WITH MEALS, N/V, DIARRHEA OR CONSTIPATION POSSIBLE) PATIENT VERBALIZED NO QUESTIONS AT THIS TIME.
--- NOTE | 2022-07-07 08:57 | SW/DCPLANNER ---
Addendum entered by Pat Godoy 07/07/22 09:23: This patient is currently established w/ [facility] and services will resume per Myesha galicia/ [facility]. Original Note: Patient information/order has been faxed to [facility]. I will follow up with [facility] once patient information is reviewed.
--- NOTE | 2022-07-07 13:54 | CARE MANAGER ---
Called and spoke with patient regarding post discharge status. Patient states that his daughter plans to grain picker new prescriptions today that were ordered at discharge. He was aware of f/u appt with Dr. Raya. Patient had no complaints or concerns at time of call.
== END 2022-07-06 15:15 | disposition home or self-care (01) | DRG 682 ==
PROVIDERS: Admitting Provider Internal Medicine Adolescent Medicine; PCP Internal Medicine Adolescent Medicine; Visit Provider Internal Medicine Adolescent Medicine
DX: N17.9 Acute kidney failure, unspecified (principal); E43 Unspecified severe protein-calorie malnutrition; K86.0 Alcohol-induced chronic pancreatitis; J44.9 Chronic obstructive pulmonary disease, unspecified; Z85.038 Personal history of other malignant neoplasm of large intestine; F32.A Depression, unspecified; E11.9 Type 2 diabetes mellitus without complications; F17.210 Nicotine dependence, cigarettes, uncomplicated; E83.51 Hypocalcemia; E83.42 Hypomagnesemia; F10.20 Alcohol dependence, uncomplicated; K59.00 Constipation, unspecified; Z68.22 Body mass index [BMI] 22.0-22.9, adult; Z79.84 Long term (current) use of oral hypoglycemic drugs
CPT/HCPCS: 36415; 71046; 74176; 80048; 80053; 81001; 82150; 82378; 83605; 83735; 85025; 86316; 87081; 94640; C9803; J3475; U0003; U0005

== ENCOUNTER 2022-07-24 16:33 | Observation (INO) | payer MEDICARE, OTHER, SELFPAY ==
[2022-07-24] VITALS (12 sets, daily range): BP systolic 92–120; BP diastolic 58–78; PULSE 86–109; RESP 14–19; TEMP 36.3–36.9; O2SAT 96–100; BMI 18.5; BMI 18.1
--- NOTE | 2022-07-24 16:40 | HMH.EDGENADL ---
Discharge Plan Disposition Patient Disposition: Admitted as Observation Clinical Impressions Clinical Impression: Hyponatremia, Alcoholic ketoacidosis, CKD (chronic kidney disease) Discharge ED Provider: Vinod Bell General Adult HPI General Chief complaint: Abdominal Pain Stated complaint: weakness Time Seen by Provider: 07/24/22 16:40 History of Present Illness HPI narrative: ChronicallyPatient is a 63-lgdd[age]bdh-year-old patient with a history of alcoholism presenting today with generalized weakness by EMS. States that he was recently in the hospital from chart review had hyponatremia some CKD was given IV fluids with improvement and went home. States has had home health over the last month they were evaluating him today and due to his significant weakness they called 911. Patient claims that he has been drinking alcohol throughout the day and really has not been eating much. Denies any new or different painful symptoms. He has a history of chronic abdominal pain has had multiple CT scans in the last few years showing nonspecific findings including chronic pancreatitis. He also has a history of colon cancer and has had a radical prostatectomy and possible prostate cancer. Patient had a chronic cough which is unchanged but home health that has been having increasing shortness of breath. Denies any wheezing of breath and sputum this morning normal. Increased weakness has been over the last few days. Related Data Home Medications Medication Instructions Recorded Confirmed albuterol sulfate 90 mcg/actuation 2 puffs IH Q6HP PRN Shortness Of 05/16/18 07/04/22 aerosol inhaler Breath aspirin 325 mg tablet 325 mg PO DAILY heart health 05/16/18 07/04/22 simvastatin 40 mg tablet 40 mg PO HS Cholesterol 05/16/18 07/04/22 quetiapine 200 mg tablet,extended 200 mg PO HS sleep/behaviors 10/07/20 07/04/22 release 24 hr fluticasone fur. 100 mcg-umeclid 1 inh inhalation DAILY COPD 03/26/22 07/04/22 62.5 mcg-vilant 25 mcg inhalat.powder (Trelegy Ellipta) ergocalciferol (vitamin D2) 1,250 50,000 unit PO .TWICE A WEEK 07/04/22 07/05/22 mcg (50,000 unit) capsule Supplement metformin 1,000 mg tablet 1,000 mg PO BID Diabetes 07/04/22 07/04/22 thiamine HCl (vitamin B1) 100 mg 100 mg PO DAILY Supplement 07/04/22 07/04/22 tablet Previous Rx's Medication Instructions Recorded [id number] 1 cap PO TID 30 days #90 caps 07/06/22 10,000-32,000-42,000 unit capsule,delayed rel (Zenpep) pantoprazole 40 mg tablet,delayed 40 mg PO BID 30 days #60 tabs 07/06/22 release (Protonix) Allergies Allergy/AdvReac Type Severity Reaction Status Date / Time No Known Allergies Allergy Verified 07/19/21 16:27 [facility] Disclaimer: The information contained in this section may have been updated after the patient was seen, as this information can be updated by other users. Medical History (Updated 07/24/22 @ 20:56 by Vinod Bell MD) Acute alcoholic pancreatitis Acute pancreatitis Acute renal failure [place] (acute kidney injury) Alcohol abuse Alcohol withdrawal Alcoholic pancreatitis Anxiety Arthritis Asthma Chronic pancreatitis Colon cancer COPD (chronic obstructive pulmonary disease) Depression Diabetes mellitus, type 2 History of gastroesophageal reflux (GERD) Hyperlipidemia Hypertension Hypomagnesemia Hyponatremia Hyponatremia Illiteracy Irritable bowel syndrome (IBS) Pneumonia Pneumonia Polysubstance abuse Protein-calorie malnutrition, mild Protein-calorie malnutrition, moderate Transaminitis Surgical History History of colon resection History of colonoscopy Family History Mother Family history of diabetes mellitus type II Social History (Updated 07/24/22 @ 20:48 by Kori Jackson, RN) Smoking Status: Current every day smoker tobacco type: cigarettes packs per day:
--- NOTE | 2022-07-24 16:42 | XR_ITS ---
PROCEDURE INFORMATION: Exam: XR Chest Exam date and time: 07/24/2022 5:22 PM Age: 67 years old Clinical indication: Smoker's cough TECHNIQUE: Imaging protocol: Radiologic exam of the chest. Views: 4 or more views. COMPARISON: CR XR CHEST 2V 07/04/2022 2:21 PM FINDINGS: Lungs: Moderate hyperexpansion and hyperlucency with diaphragmatic flattening suggesting COPD. Granulomatous calcification in the peripheral left pulmonary apex. Pulmonary vasculature grossly normal. No gross pulmonary infiltrates or edema pattern. Pleural spaces: Mild bilateral apical pleural/parenchymal scarring. No pleural effusion. No pneumothorax. Heart/Mediastinum: Heart size normal. No tracheal/mediastinal shift. Vasculature: The aorta demonstrates mild ectasia/tortuosity and moderate calcific atherosclerosis. Bones/joints: No acute osseous abnormalities are identified. IMPRESSION: 1. No acute thoracic process. No gross pulmonary infiltrates or edema pattern. 2. COPD/emphysematous changes and apical scarring.
--- NOTE | 2022-07-24 16:44 | ECG_ITS ---
APPROVED REPORT Exam: Resting ECG HR:106 bpm ECG Measurements Heart Rate 106 AXES NH 186 P 149 QRSd 70 QRS 129 QT 327 T 150 QTc 389 Conclusion SINUS TACHYCARDIA ABNORMAL RHYTHM ECG UNCONFIRMED REPORT Electronically signed by : Shankar Raya MD 07/26/2022 20:02:54
[2022-07-24 16:59] LABS: Basophils % 0.5 % (0.1-2.0); Eosinophils # 0.2 K/mm3 (0.0-0.4); Eosinophils % 2.4 % (0.1-12.0); Hematocrit 32.4 % (42.0-52.0); Hemoglobin 10.5 g/dL (14.1-18.0); Lymphocytes # 1.9 K/mm3 (0.7-4.5); Lymphocytes % 31.8 % (10-50); Mean Corpuscular HGB Conc 32.4 g/dL (31.8-35.4); Mean Corpuscular Hemoglobin 32.2 pg (27.0-31.2); Mean Corpuscular Volume 99.3 fl (80-94); Monocytes # 0.6 K/mm3 (0.1-1.0); Monocytes % 9.9 % (1.7-9.3); Neutrophils # 3.3 K/mm3 (1.8-7.8); Neutrophils % 55.3 % (37.0-80.0); Platelet Count 229 K/mm3 (142-424); Red Blood Count 3.26 M/mm3 (4.60-6.20); Red Cell Distribution Width 14.6 % (11.5-17.5)
[2022-07-24 17:04] LABS: Chloride 99 mmol/L (98-107); Potassium 4.8 mmoL/L (3.5-5.1); Sodium 127 mmol/L (136-145)
[2022-07-24 17:06] LABS: Blood Urea Nitrogen 14 mg/dl (9-20); Creatinine Clearance Estimated 35 mL/min (50-200); Estimated Glomerular Filt Rate 43 ml/min (>60); GFR (African American) 52 ML/MIN (>60)
[2022-07-24 17:07] LABS: Alanine Aminotransferase 62 U/L (12-78); Albumin Level 2.9 g/dl (3.5-5.0); Alkaline Phosphatase 134 U/L (38-126); Anion Gap 18.8 mEq/L (5-15); Aspartate Amino Transferase 146 U/L (17-59); Bilirubin,Total 0.4 mg/dl (0.2-1.3); Calcium 7.6 mg/dl (8.4-10.2); Carbon Dioxide 14 mmol/L (22.0-30.0); Globulin 2.9 g/dL (1.3-3.2); Glucose 73 mg/dl (74-100); Lipase 11 U/L (23-300); Magnesium 1.4 mg/dl (1.6-2.3); Phosphorous 5.2 mg/dl (2.5-4.5); Total Protein,Serum 5.8 g/dl (6.3-8.2)
--- NOTE | 2022-07-24 17:48 | PC.NURSE ---
Iman Miguel [phone], pt's daughter and POA called for update
--- NOTE | 2022-07-24 18:26 | PC.NURSE ---
pt laying in bed no complaints this time, call light at bedside
--- NOTE | 2022-07-24 18:46 | PC.NURSE ---
Dr. Ferraro accepted pt for admission from ED for DKA
--- NOTE | 2022-07-24 18:56 | PC.NURSE ---
called powerhouse operator for bed
[2022-07-24 18:59] LABS: Influenza A, PCR Not Detected (NotDetected); Influenza B, PCR Not Detected (NotDetected)
--- NOTE | 2022-07-24 18:59 | PC.NURSE ---
pt laying in bed, call light at bedside no complaint at this time
[2022-07-24 19:08] LABS: Microscopic, Urine URINE MICROSCOPIC (MICROSCOPIC)
[2022-07-24 19:10] LABS: Appearance,Urine CLEAR (Clear); Blood, Urine Negative (Negative); Color,Urine DK YELLOW (Yellow); Glucose,Urine (UA) Negative (Negative); Ketones,Urine Negative (Negative); Leukocyte Esterase,Urine Negative (Negative); Nitrate,Urine Negative (Negative); Protein,Urine Negative (Negative); Specific Gravity, Urine >= 1.030 (1.005-1.030); Urobilinogen,Urine 0.2 EU/dl (0.2)
[2022-07-24 19:11] LABS: Bilirubin,Urine 1+ (Negative)
[2022-07-24 19:17] LABS: Squamous Epithelial Cell,Urine Occasional #/hpf (0-5)
[2022-07-24 19:24] LABS: VBG Base Excess -12.9 mmol/L (-2.4-2.3); VBG Oxygen Saturation 94.7 % (50-70); VBG PCO2 38.5 mmol/L (35-51); VBG PH 7.21 mmol/L (7.31-7.41); VBG PO2 92.5 mmol/L (28-40); VBG Total CO2 16.2 mmol/L (23-27)
[2022-07-24 20:10] LABS: Coronavirus 19, PCR Detected (NotDetected)
--- NOTE | 2022-07-24 20:26 | PC.NURSE ---
Pt arrived to floor via wheelchair @ 2021
--- NOTE | 2022-07-24 21:03 | PC.NURSE ---
med reconcilliation completed by reviewing discharge note from admission 07/04/22; pt unable to name medications he is taking at this time, he states you all should know i was just in here few weeks ago ; pt voices SI without intent, case management and sw consults needed in am, pt is alert and oriented x4, pt is unable to read and write.
[2022-07-25] VITALS (8 sets, daily range): BP systolic 109–133; BP diastolic 65–78; PULSE 79–100; RESP 18–22; TEMP 36.4–37.2; O2SAT 93–99; BMI 18.1; BMI 18.0
--- NOTE | 2022-07-25 04:48 | PC.NURSE ---
pt admitted this shift, pt is alert and oriented x4, vss, ciwa 3 and medicated with valium as prescribed, pt rested well after, bed alarm in place, no acute distress or other concerns noted at this time.
[2022-07-25 06:31] LABS: Basophils % 0.4 % (0.1-2.0); Eosinophils # 0.1 K/mm3 (0.0-0.4); Eosinophils % 1.8 % (0.1-12.0); Hematocrit 28.8 % (42.0-52.0); Lymphocytes # 1.3 K/mm3 (0.7-4.5); Lymphocytes % 39.9 % (10-50); Mean Corpuscular HGB Conc 32.1 g/dL (31.8-35.4); Mean Corpuscular Volume 99.4 fl (80-94); Mean Platelet Volume 7.6 fl (7.4-10.4); Monocytes # 0.2 K/mm3 (0.1-1.0); Neutrophils # 1.6 K/mm3 (1.8-7.8); Neutrophils % 50.8 % (37.0-80.0); Platelet Count 203 K/mm3 (142-424); Red Cell Distribution Width 14.5 % (11.5-17.5); White Blood Count 3.2 K/mm3 (4.8-10.8)
[2022-07-25 06:32] LABS: Chloride 101 mmol/L (98-107); Potassium 4.5 mmoL/L (3.5-5.1); Sodium 128 mmol/L (136-145)
[2022-07-25 06:34] LABS: Blood Urea Nitrogen 15 mg/dl (9-20); Creatinine Clearance Estimated 37 mL/min (50-200); Estimated Glomerular Filt Rate 47 ml/min (>60); GFR (African American) 56 ML/MIN (>60)
[2022-07-25 06:35] LABS: Alanine Aminotransferase 44 U/L (12-78); Albumin Level 2.2 g/dl (3.5-5.0); Albumin/Globulin Ratio 0.9 (1.1-1.8); Alkaline Phosphatase 128 U/L (38-126); Anion Gap 6.5 mEq/L (5-15); Aspartate Amino Transferase 92 U/L (17-59); Bilirubin,Total 0.2 mg/dl (0.2-1.3); Calcium 6.9 mg/dl (8.4-10.2); Carbon Dioxide 25 mmol/L (22.0-30.0); Globulin 2.4 g/dL (1.3-3.2); Glucose 108 mg/dl (74-100); Magnesium 1.5 mg/dl (1.6-2.3); Total Protein,Serum 4.6 g/dl (6.3-8.2)
--- NOTE | 2022-07-25 06:55 | HMH.PHAINT1 ---
Pharmacy Intervention Comments: MEDICATION RECONCILIATION COMPLETED ON PATIENT USING EXTERNAL FILL HISTORY FROM PHARMACY. -MATHEUS MCGRAW, CRYSTALD
[2022-07-25 07:04] LABS: Hemoglobin 9.3 g/dL (14.1-18.0)
--- NOTE | 2022-07-25 08:34 | EXP.HP ---
History of Present Illness *Admission Date: 07/25/22 *Reason for visit:: Abdominal pain/weakness *History of present illness: 67-year-old with emphysema, chronic pancreatitis, chronic malnutrition and severe protein calorie malnutrition with recurrent/chronic alcohol abuse who came to the emergency department because of weakness, abdominal pain. Also noted that he had mild URI symptoms. Found to be dehydrated, found to have exacerbation of his chronic pancreatitis and had been drinking alcohol. Also found to have a positive COVID test. Admitted to hospital for IV fluids, pain control for chronic pancreatitis and further evaluation. [facility] Disclaimer: The information contained in this section may have been updated after the patient was seen, as this information can be updated by other users. Medical History (Updated 07/25/22 @ 08:38 by Shankar Raya MD) Acute alcoholic pancreatitis Acute pancreatitis Acute renal failure [place] (acute kidney injury) Alcohol abuse Alcohol withdrawal Alcoholic pancreatitis Anxiety Arthritis Asthma Chronic pancreatitis Colon cancer COPD (chronic obstructive pulmonary disease) COVID COVID Depression Diabetes mellitus, type 2 History of gastroesophageal reflux (GERD) Hyperlipidemia Hypertension Hypomagnesemia Hyponatremia Hyponatremia Illiteracy Irritable bowel syndrome (IBS) Pneumonia Pneumonia Polysubstance abuse Protein-calorie malnutrition, mild Protein-calorie malnutrition, moderate Transaminitis Surgical History History of colon resection History of colonoscopy Family History Family history of diabetes mellitus type II Mother Social History (Updated 07/24/22 @ 20:48 by Kori Jackson RN) Smoking Status: Current every day smoker tobacco type: cigarettes packs per day: 1 years smoked: 54 quit status: has quit before second hand exposure: Yes Tobacco counseling given: patient declined alcohol intake: current counseling provided: provider counseling substance use type: marijuana current occupational status: disabled Travel in the last 8 weeks: None household members: none housing: apartment lives independently: Yes (home health comes twice a week ) marital status: current occupational exposures/hazards: No caffeine: Yes (coffee) physical activity: none do you feel safe at home: Yes Review of Systems Review of Systems Review of systems:: pertinent systems reviewed and negative unless documented below Meds Home Medications and Allergies Home Medications Medication Instructions Recorded Confirmed Type albuterol sulfate 90 mcg/actuation 2 puffs IH Q6HP PRN Shortness Of 05/16/18 07/24/22 History aerosol inhaler Breath aspirin 325 mg tablet 325 mg PO DAILY heart health 05/16/18 07/24/22 History simvastatin 40 mg tablet 40 mg PO HS Cholesterol 05/16/18 07/24/22 History quetiapine 200 mg tablet,extended 200 mg PO HS sleep/behaviors 10/07/20 07/24/22 History release 24 hr fluticasone fur. 100 mcg-umeclid 1 inh inhalation DAILY COPD 03/26/22 07/24/22 History 62.5 mcg-vilant 25 mcg inhalat.powder (Trelegy Ellipta) ergocalciferol (vitamin D2) 1,250 50,000 unit PO DIRECTED 07/04/22 07/25/22 History mcg (50,000 unit) capsule Supplement thiamine HCl (vitamin B1) 100 mg 100 mg PO DAILY Supplement 07/04/22 07/24/22 History tablet hftgmm-xrpraysd-vlsobyz 1 cap PO TID 30 days #90 caps 07/06/22 07/24/22 Rx 10,000-32,000-42,000 unit capsule,delayed rel (Zenpep) meloxicam 15 mg tablet 15 mg PO DAILY Pain 07/25/22 07/25/22 History metformin 1,000 mg tablet 1,000 mg PO BIDWMEAL Diabetes 07/25/22 07/25/22 History omeprazole 20 mg capsule,delayed 20 mg PO DAILY GERD 07/25/22 07/25/22 History release New Prescriptions to Start Prescriptions: Allergies Allergy/AdvReac Type Se
--- NOTE | 2022-07-25 10:01 | SW/DCPLANNER ---
Addendum entered by Pat Godoy 07/28/22 09:11: Patient's POA (Iman) has called requesting information be faxed to Chanda galicia/ [facility] [place]. Patient stated that patient needs placement at this time and is agreeable. I have faxed information to Chanda galicia/ [facility] [place]. Addendum entered by Pat Godoy 07/28/22 07:42: Updated patient information has been faxed to [facility] to resume services. Original Note: This patient is currently established with [facility]. I will fax patient information/order to resume services at time of discharge. PT has stated that patient is safe to return home with home health services.
--- NOTE | 2022-07-25 10:10 | HMH.PTEV ---
Physical Therapy Evaluation Rehab PT IP Evaluation Start: 07/25/22 08:33 Freq: ONCE Status: Active Protocol: Document 07/25/22 10:06 ROCIO (Rec: 07/25/22 10:10 ROCIO [id number]) Subjective/History History History 67 yowm adm to [facility] with abdominal pain. He has hx of pancreatitis. He reports he lives alone, ramp to enter his apartment, and he uses a cane for all ambulation at baseline. Subjective Subjective He reports no new c/o this am, feels mildly weak. Rehab PT IP Eval Objective Appearance Patient Behavior Appropriate Patient Orientation Person,Place,Time Difficulty following instructions none Speech Pattern Clear Ambulation Patient Able to Ambulate Yes Ambulation Observation IP General Gait Pattern Observation Wide Based Gait Ambulation Distance (feet) 30 Ambulation Assistive Device Straight Cane Ambulation Ability Supervision/Stand by Balance Ability to Arise Able, uses arms to help Sitting Balance Steady, safe Standing Balance Steady, wide stance Dynamic Sitting Balance Ability Good Dynamic Standing Balance Ability Good Transfers Bed Transfer Ability Supervision/Stand by Chair Transfer Ability Supervision/Stand by Sit to Stand Bed Transfer Ability Supervision/Stand by Sit to Stand Chair Transfer Ability Supervision/Stand by ROM All Extremities PT ROM Status WFL MMT All Extremities PT MMT WFL Rehab PT IP prob,goals,plan Problems Date of Evaluation: 07/25/22 Discharge Plan PT Discharge Plan Pt presents at baseline for all mobility at this time and is appropriate to return home once medically stable for d/c. Recommend Home health therapy as appropriate after d/c. G -code Required No Eval Complexity Eval Charge Codes 67242 - Moderate Complexity PHYSICIAN CERTIFICATION: I certify the specified therapy services for Noah Rivero JR are required, authorized, and reviewed every 30 days.
--- NOTE | 2022-07-25 11:33 | HMH.OTEV ---
OT Inpatient Evaluation Rehab OT IP Evaluation Start: 07/25/22 08:33 Freq: ONCE Status: Active Protocol: Document 07/25/22 10:58 MELISSA (Rec: 07/25/22 11:32 MELISSA [id number]) Rehab OT IP Assessment Subjective History 67-year-old with emphysema, chronic pancreatitis, chronic malnutrition and severe protein calorie malnutrition with recurrent/chronic alcohol abuse who came to the emergency department because of weakness, abdominal pain. Also noted that he had mild URI symptoms. Found to be dehydrated, found to have exacerbation of his chronic pancreatitis and had been drinking alcohol. Also found to have a positive COVID test. Admitted to hospital for IV fluids, pain control for chronic pancreatitis and further evaluation. Patient lives alone with ramp to enter. Independent with ADLs and fx'l mobility. Patient uses cane to ambulate as needed. Subjective I can get up. Analysis Patient's fx'l mobility of transfers, bed mobility and LB ADLs. Patient was independent with ADLs and fx'l mobility. Objective Patient Orientation Person,Place,Name Upper Extremity Gross ROM WFL Bed Mobility bed mobility - supine/sit Assist Level Independent Transfer Training Sit/Stand Transfer Assist Level Contact Guard/Hand Hold Chair Transfer Ability Contact Guard/Hand Hold Chair Transfer Assistive Devices Straight Cane Rehab OT IP prob,goals,plan Problems Date of Evaluation: 07/25/22 Rehab Potential Rehab Potential Innapropriate for Skilled Therapy Equipment Needs Assistive Devices Straight Cane Discharge Plan OT Discharge Plan Recommend Patient to return home with family assistance and possible services as needed. Eval Complexity Eval Charge Codes
--- NOTE | 2022-07-25 17:13 | PC.NURSE ---
VS stable, patient remains on room air. Abdomen rounded, bowel sounds active. No pain reported, pt/ot eval completed. No complaints noted.
[2022-07-26] VITALS: PULSE 85
[2022-07-26 04:00] VITALS: BP 129/72; PULSE 97; RESP 18; TEMP 37.4; O2SAT 94; BMI 18.3
[2022-07-26 05:00] VITALS: PULSE 92
--- NOTE | 2022-07-26 05:41 | PC.NURSE ---
a&ox4. stable on room air. ciwa 2 at beginning of shift, pt stated he was feeling anxious. prn valium given. no complaints the rest of the night. vss.
[2022-07-26 07:03] LABS: Basophils % 0.5 % (0.1-2.0); Eosinophils % 1.3 % (0.1-12.0); Hematocrit 29.2 % (42.0-52.0); Hemoglobin 9.8 g/dL (14.1-18.0); Lymphocytes # 1.3 K/mm3 (0.7-4.5); Mean Corpuscular HGB Conc 33.7 g/dL (31.8-35.4); Mean Corpuscular Hemoglobin 31.8 pg (27.0-31.2); Mean Corpuscular Volume 94.2 fl (80-94); Mean Platelet Volume 7.7 fl (7.4-10.4); Monocytes # 0.2 K/mm3 (0.1-1.0); Neutrophils # 1.3 K/mm3 (1.8-7.8); Neutrophils % 45.2 % (37.0-80.0); Platelet Count 181 K/mm3 (142-424); Red Cell Distribution Width 14.4 % (11.5-17.5); White Blood Count 2.8 K/mm3 (4.8-10.8)
[2022-07-26 07:16] LABS: Chloride 103 mmol/L (98-107)
[2022-07-26 07:17] LABS: Potassium 4.7 mmoL/L (3.5-5.1); Sodium 129 mmol/L (136-145)
[2022-07-26 07:19] LABS: Alanine Aminotransferase 44 U/L (12-78); Albumin Level 2.4 g/dl (3.5-5.0); Alkaline Phosphatase 149 U/L (38-126); Anion Gap 4.7 mEq/L (5-15); Aspartate Amino Transferase 79 U/L (17-59); Bilirubin,Total 0.4 mg/dl (0.2-1.3); Blood Urea Nitrogen 14 mg/dl (9-20); Carbon Dioxide 26 mmol/L (22.0-30.0); Creatinine Clearance Estimated 46 mL/min (50-200); Estimated Glomerular Filt Rate 60 ml/min (>60); GFR (African American) 73 ML/MIN (>60); Globulin 2.5 g/dL (1.3-3.2); Total Protein,Serum 4.9 g/dl (6.3-8.2)
[2022-07-26 07:20] LABS: Calcium 7.2 mg/dl (8.4-10.2); Glucose 99 mg/dl (74-100)
[2022-07-26 08:00] VITALS: BP 111/63; PULSE 107; RESP 20; TEMP 37.2; O2SAT 96
--- NOTE | 2022-07-26 09:17 | EXP.DC.SUM ---
General Admission date:: 07/24/22 Discharge date: 07/26/22 HPI HPI HPI: 67-year-old with emphysema, chronic pancreatitis, chronic malnutrition and severe protein calorie malnutrition with recurrent/chronic alcohol abuse who came to the emergency department because of weakness, abdominal pain. Also noted that he had mild URI symptoms. Found to be dehydrated, found to have exacerbation of his chronic pancreatitis and had been drinking alcohol. Also found to have a positive COVID test. Admitted to hospital for IV fluids, pain control for chronic pancreatitis and further evaluation. Hospital Course Hospital Course Hospital Course: Patient was admitted, given IV fluids. Supportive care. Positive COVID test was noted, patient was completely asymptomatic from a viral or pneumonia perspective. We discussed that he had used quite a bit of alcohol over the past week which I believe flared his chronic pancreatitis. With abstinence, good supportive care and a low-fat diet he was able to eat and this morning felt much better. Labs remained stable, kidney function had improved, hemoglobin remained low but at baseline. He feels comfortable going home and in fact wishes to go home. Plan will be for a low-fat diet. I talked with him about his need to absolutely avoid alcohol and continue his pancreatic supplements. I will see him on Thursday in office for a posthospital check. Exam Data for Last 24 hours Vital signs and Labs for Last 24 Hours: Temp Pulse Resp BP Pulse Ox 99.0 F 107 H 20 111/63 96 07/26/22 08:00 07/26/22 08:00 07/26/22 08:00 07/26/22 08:00 07/26/22 08:00 Laboratory Results - last 24 hr 07/26/22 06:51: WBC 2.8 L, RBC 3.10 L, Hgb 9.8 L, Hct 29.2 L, MCV 94.2 H, MCH 31.8 H, MCHC 33.7, RDW 14.4, Plt Count 181, MPV 7.7, Neut % (Auto) 45.2, Lymph % (Auto) 46.0, [place] % (Auto) 7.0, Eos % (Auto) 1.3, Baso % (Auto) 0.5, Neut # (Auto) 1.3 L, Lymph # (Auto) 1.3, [place] # (Auto) 0.2, Eos # (Auto) 0.0, Baso # (Auto) 0.0 07/26/22 06:51: Sodium 129 L, Potassium 4.7, Chloride 103, Carbon Dioxide 26, Anion Gap 4.7 L, BUN 14, Creatinine 1.20, Estimated Creat Clear 46, Estimated GFR 60, Est GFR ( Amer) 73 D, Glucose 99, Calcium 7.2 L, Total Bilirubin 0.4, AST 79 H, ALT 44, Alkaline Phosphatase 149 H, Total Protein 4.9 L, Albumin 2.4 L, Globulin 2.5, Albumin/Globulin Ratio 1.0 L I & O for Last 24 hours: Intake & Output 07/23/22 07/24/22 07/25/22 07/26/22 11:59 11:59 11:59 11:59 Intake Total 1359 / 1359 580 / 580 Output Total 500 / 500 1100 / 1100 Balance 859 / 859 -520 / -520 Weight 119 lb 0.794 oz 121 lb 4 oz Microbiology Reports for the Last 24 Hours: Microbiology 06/17/22 15:00 Sputum - Expectorated Sputum Gram Stain - Final 06/17/22 15:00 Sputum - Expectorated Sputum Sputum Culture - Preliminary Constitutional Constitutional: no acute distress *Routine HEENT Exam Head: Present normocephalic Eye: Present EOMI and PERRL ENT: Present mucous membranes moist *Routine Neck Exam Neck: Present supple; Absent lymphadenopathy *Routine Respiratory Exam Respiratory: Present rhonchi, distant breath sounds and normal respiratory effort *Routine Cardiovascular Exam Cardiovascular: Present RRR *Routine Abdominal Exam Abdominal: Present soft and normoactive bowel sounds; Absent tenderness *Routine Extremities Exam Extremities: Absent cyanosis, clubbing or edema *Routine Skin Exam Skin: Present warm; Absent rash *Routine Neurological Exam Neurological: Present alert and oriented X3 Results Data Completed and Pending Labs on day of discharge: Labs from last 24 hours 07/26/22 07/26/22 06:51 06:51 WBC 2.8 L RBC 3.10 L Hgb 9.8 L Hct 29.2 L MCV 94.2 H MCH 31.8 H MCHC 33.7 RDW 14.4 Plt Count 181 MPV 7.7 Neut % (Auto) 45.2 Lymph % (Auto) 46.0 [place] % (Auto) 7.0 Eos % (Auto) 1.3 Baso % (Auto) 0.5 Neut # (Auto) 1.3 L Lymph # (Auto) 1.3 [place] # (Auto)
--- NOTE | 2022-07-26 09:39 | HMH.PHAINT1 ---
Pharmacy Intervention Comments: DISCHARGE MEDICATION COUNSELING PROVIDED. DISCUSSED STOPPING THE ASPIRIN AND MELOXICAM. PATIENT VERBALIZED NO QUESTIONS AT THIS TIME.
--- NOTE | 2022-07-28 13:31 | CARE MANAGER ---
Contacted patient related to hospital discharge. He states he is doing okay. He has not heard from home health yet, but will let us know if he doesn't hear anything today. He is considering [facility] and his information has been sent there. CANDIS Shepard
== END 2022-07-26 10:32 | disposition home health service (06) ==
LOC: ER 17:47 → 2ND 19:50
PROVIDERS: Admitting Provider Family Medicine; Emergency Provider Student in an Organized Health Care Education/Training Program; PCP Internal Medicine Adolescent Medicine; Visit Provider Internal Medicine Adolescent Medicine
DX: K86.0 Alcohol-induced chronic pancreatitis (principal); E11.9 Type 2 diabetes mellitus without complications; E87.1 Hypo-osmolality and hyponatremia; N18.9 Chronic kidney disease, unspecified; E43 Unspecified severe protein-calorie malnutrition; U07.1 COVID-19; Z68.1 Body mass index [BMI] 19.9 or less, adult; F10.10 Alcohol abuse, uncomplicated; Z79.899 Other long term (current) drug therapy; Z79.84 Long term (current) use of oral hypoglycemic drugs; F17.210 Nicotine dependence, cigarettes, uncomplicated
CPT/HCPCS: G0378; 36415; 71045; 80053; 81001; 82803; 83690; 83735; 84100; 85025; 87081; 93005; 94640; 97162; 97165; 99285; C9803; J3475; U0003; U0005

== ENCOUNTER → 2022-07-31 09:13 | Outpatient (CLI) | payer MEDICARE, OTHER, SELFPAY ==
--- NOTE | 2022-07-31 09:29 | XR_ITS ---
FINAL REPORT CLINICAL HISTORY: SOA f/u covid COMPARISON: 07/24/2022 FINDINGS: PA and lateral views of the chest were obtained. The cardiac and mediastinal silhouettes are within normal limits. There are changes of emphysema. The lungs are otherwise clear. There is no pleural effusion or pneumothorax. On lateral views an air-fluid level in the anterior mediastinum which wound correlated to prior CT scan is concerning for fluid within a bulla. There are mild compression deformities of several upper thoracic vertebral bodies which are unchanged. IMPRESSION: Air-fluid level anterior mediastinum, likely fluid within a large bulla. Infection is not excluded. Consider CT for further evaluation. Reviewed, Interpreted and Dictated by Cinthya Wong MD Transcribed by Lauryn Chisholm Authenticated and [facility]
[2022-07-31 09:44] LABS: Basophils % 0.7 % (0.1-2.0); Eosinophils # 0.1 K/mm3 (0.0-0.4); Eosinophils % 1.6 % (0.1-12.0); Hemoglobin 11.1 g/dL (14.1-18.0); Lymphocytes # 1.7 K/mm3 (0.7-4.5); Lymphocytes % 32.2 % (10-50); Mean Corpuscular HGB Conc 31.9 g/dL (31.8-35.4); Mean Corpuscular Hemoglobin 31.8 pg (27.0-31.2); Mean Corpuscular Volume 99.9 fl (80-94); Mean Platelet Volume 8.3 fl (7.4-10.4); Monocytes # 0.5 K/mm3 (0.1-1.0); Monocytes % 8.8 % (1.7-9.3); Neutrophils # 2.9 K/mm3 (1.8-7.8); Neutrophils % 56.7 % (37.0-80.0); Platelet Count 279 K/mm3 (142-424); Red Cell Distribution Width 13.9 % (11.5-17.5); White Blood Count 5.2 K/mm3 (4.8-10.8)
[2022-07-31 10:23] LABS: Alanine Aminotransferase 28 U/L (12-78); Albumin Level 3.1 g/dl (3.5-5.0); Albumin/Globulin Ratio 0.9 (1.1-1.8); Alkaline Phosphatase 191 U/L (38-126); Amylase 48 U/L (30-110); Anion Gap 11.3 mEq/L (5-15); Aspartate Amino Transferase 32 U/L (17-59); Bilirubin,Total 0.9 mg/dl (0.2-1.3); Blood Urea Nitrogen 15 mg/dl (9-20); Calcium 7.8 mg/dl (8.4-10.2); Carbon Dioxide 22 mmol/L (22.0-30.0); Chloride 103 mmol/L (98-107); Estimated Glomerular Filt Rate 43 ml/min (>60); GFR (African American) 52 ML/MIN (>60); Globulin 3.3 g/dL (1.3-3.2); Glucose 127 mg/dl (74-100); Lipase 11 U/L (23-300); Potassium 4.3 mmoL/L (3.5-5.1); Sodium 132 mmol/L (136-145); Total Protein,Serum 6.4 g/dl (6.3-8.2)
[2022-07-31 10:54] LABS: Thyroid Stimulating Hormone 4.57 uIU/mL (0.465-4.68)
== END ==
PROVIDERS: PCP Internal Medicine Adolescent Medicine; Visit Provider Nurse Practitioner Family
DX: R06.02 Shortness of breath (principal); R53.83 Other fatigue; K86.0 Alcohol-induced chronic pancreatitis; F10.20 Alcohol dependence, uncomplicated
CPT/HCPCS: 36415; 71046; 80053; 82150; 83690; 84443; 85025

== ENCOUNTER 2022-08-01 09:46 | Outpatient (CLI) | payer MEDICARE, OTHER, SELFPAY ==
[2022-08-01 10:08] VITALS: BP 96/69; PULSE 118; RESP 20; O2SAT 93
--- NOTE | 2022-08-01 10:10 | PC.NURSE ---
1010-pt lung sounds clear to auscultation at this time
[2022-08-01 11:10] VITALS: BP 102/59; PULSE 118; RESP 20; TEMP 36.1; O2SAT 95
[2022-08-01 12:10] VITALS: BP 103/59; PULSE 108; RESP 18; O2SAT 96
[2022-08-01 13:10] VITALS: BP 106/66; PULSE 108; RESP 18; O2SAT 95
[2022-08-01 14:20] VITALS: BP 118/72; PULSE 108; RESP 20; O2SAT 96
== END 2022-08-01 14:20 | disposition home or self-care (01) ==
LOC: INF 09:47
PROVIDERS: PCP Internal Medicine Adolescent Medicine; Visit Provider Nurse Practitioner Family
DX: E86.0 Dehydration (principal)
CPT/HCPCS: 96360; 96361

== ENCOUNTER → 2022-08-04 17:24 | Outpatient (CLI) | payer MEDICARE, OTHER, SELFPAY ==
[2022-08-04 18:03] LABS: Chloride 102 mmol/L (98-107); Potassium 4.3 mmoL/L (3.5-5.1); Sodium 135 mmol/L (136-145)
[2022-08-04 18:06] LABS: Alanine Aminotransferase 30 U/L (12-78); Albumin Level 2.8 g/dl (3.5-5.0); Albumin/Globulin Ratio 0.9 (1.1-1.8); Alkaline Phosphatase 148 U/L (38-126); Anion Gap 12.3 mEq/L (5-15); Aspartate Amino Transferase 33 U/L (17-59); Bilirubin,Total 0.4 mg/dl (0.2-1.3); Blood Urea Nitrogen 19 mg/dl (9-20); Calcium 7.7 mg/dl (8.4-10.2); Carbon Dioxide 25 mmol/L (22.0-30.0); Estimated Glomerular Filt Rate 47 ml/min (>60); GFR (African American) 56 ML/MIN (>60); Globulin 3.2 g/dL (1.3-3.2); Glucose 264 mg/dl (74-100); Magnesium 1.1 mg/dl (1.6-2.3)
[2022-08-04 18:31] LABS: Basophils # 0.1 K/mm3 (0-0.2); Basophils % 0.8 % (0.1-2.0); Eosinophils # 0.1 K/mm3 (0.0-0.4); Eosinophils % 1.2 % (0.1-12.0); Hematocrit 32.8 % (42.0-52.0); Hemoglobin 10.1 g/dL (14.1-18.0); Lymphocytes # 2.2 K/mm3 (0.7-4.5); Mean Corpuscular HGB Conc 30.7 g/dL (31.8-35.4); Mean Corpuscular Hemoglobin 31.2 pg (27.0-31.2); Mean Corpuscular Volume 101.4 fl (80-94); Mean Platelet Volume 7.9 fl (7.4-10.4); Monocytes # 0.4 K/mm3 (0.1-1.0); Neutrophils # 3.2 K/mm3 (1.8-7.8); Platelet Count 373 K/mm3 (142-424); Red Blood Count 3.24 M/mm3 (4.60-6.20); Red Cell Distribution Width 13.8 % (11.5-17.5); White Blood Count 5.9 K/mm3 (4.8-10.8)
[2022-08-04 18:37] LABS: Thyroid Stimulating Hormone 3.47 uIU/mL (0.465-4.68)
[2022-08-06 06:12] LABS: CA 19-9 127 U/mL (0-35)
== END ==
PROVIDERS: PCP Nurse Practitioner Family; Visit Provider Nurse Practitioner Family
DX: R42 Dizziness and giddiness (principal); R00.0 Tachycardia, unspecified; E86.0 Dehydration; K86.0 Alcohol-induced chronic pancreatitis
CPT/HCPCS: 36415; 80053; 83735; 84443; 85025; 86316

== ENCOUNTER 2022-08-08 13:07 | Outpatient (CLI) | payer MEDICARE, OTHER, SELFPAY ==
[2022-08-08 13:41] VITALS: BP 118/69; PULSE 120; RESP 18; O2SAT 98
[2022-08-08 13:58] LABS: Chloride 105 mmol/L (98-107); Potassium 4.8 mmoL/L (3.5-5.1); Sodium 139 mmol/L (136-145)
[2022-08-08 14:01] LABS: Alanine Aminotransferase 27 U/L (12-78); Albumin/Globulin Ratio 0.9 (1.1-1.8); Alkaline Phosphatase 137 U/L (38-126); Anion Gap 11.8 mEq/L (5-15); Aspartate Amino Transferase 34 U/L (17-59); Bilirubin,Total 0.4 mg/dl (0.2-1.3); Blood Urea Nitrogen 24 mg/dl (9-20); Calcium 8.2 mg/dl (8.4-10.2); Carbon Dioxide 27 mmol/L (22.0-30.0); Creatinine Clearance Estimated 2 mL/min (50-200); Estimated Glomerular Filt Rate 51 ml/min (>60); GFR (African American) 61 ML/MIN (>60); Globulin 3.4 g/dL (1.3-3.2); Glucose 116 mg/dl (74-100); Total Protein,Serum 6.4 g/dl (6.3-8.2)
[2022-08-08 14:02] LABS: Magnesium 1.2 mg/dl (1.6-2.3)
--- NOTE | 2022-08-08 14:47 | PC.NURSE ---
[id number]-notified bridgett melvin aprn of pt's labs; no new orders received
[2022-08-08 15:49] VITALS: BP 127/67; PULSE 107; RESP 18
== END 2022-08-08 15:52 | disposition home or self-care (01) ==
PROVIDERS: PCP Nurse Practitioner Family; Visit Provider Nurse Practitioner Family
DX: E86.0 Dehydration (principal); R00.0 Tachycardia, unspecified
CPT/HCPCS: 80053; 83735; 96360; 96361

== ENCOUNTER → 2022-08-11 13:05 | Outpatient (CLI) | payer MEDICARE, OTHER, SELFPAY ==
--- NOTE | 2022-08-11 13:13 | CT_ITS ---
FINAL REPORT TECHNIQUE: Axial CT images were performed from the lung apices through the upper abdomen. Coronal reformats were submitted. This study was performed with techniques to keep radiation doses as low as reasonably achievable (ALARA). Individualized dose reduction techniques using automated exposure control or adjustment of mA and/or kV according to the patient's size were employed. CLINICAL HISTORY: SOA and chest pain COMPARISON: 07/19/2021 FINDINGS: There is no axillary adenopathy. There is no hilar or mediastinal mass or adenopathy. Heart size is normal. There is no pericardial or pleural effusion. There is a cavitary lesion in the anteromedial right mid thorax at the site of a prior bulla measuring 42 mm. This is of uncertain etiology and could represent an infectious bulla. Moderate emphysema is seen. There is mild scarring. There is a cavitary nodule in the right upper lobe measuring 16 mm. Other nodular opacities appear stable. Calcified granulomas are seen. There is a new cavitary nodular opacity in the lingula measuring 12 mm. Limited images of the upper abdomen demonstrate multiple pancreatic calcifications consistent with chronic pancreatitis. IMPRESSION: New right upper lobe and lingular cavitary nodular opacities most worrisome for mycobacterial/fungal disease. Neoplasm is not excluded. New fluid containing lesion in the anteromedial right mid thorax could represent infectious bulla or other cavitary lesion. Reviewed, Interpreted and Dictated by Niko Glez III, MD Transcribed by Estella Blair Authenticated and . [facility]
== END ==
PROVIDERS: PCP Nurse Practitioner Family; Visit Provider Nurse Practitioner Family
DX: R06.02 Shortness of breath (principal)
CPT/HCPCS: 71250

== ENCOUNTER → 2022-08-13 17:50 | Outpatient (CLI) | payer MEDICARE, OTHER, SELFPAY ==
[2022-08-13 18:24] LABS: Chloride 103 mmol/L (98-107)
[2022-08-13 18:25] LABS: Potassium 4.2 mmoL/L (3.5-5.1); Sodium 134 mmol/L (136-145)
[2022-08-13 18:27] LABS: Alanine Aminotransferase 22 U/L (12-78); Albumin Level 3.2 g/dl (3.5-5.0); Alkaline Phosphatase 127 U/L (38-126); Anion Gap 11.2 mEq/L (5-15); Aspartate Amino Transferase 29 U/L (17-59); Bilirubin,Total 0.4 mg/dl (0.2-1.3); Blood Urea Nitrogen 14 mg/dl (9-20); Carbon Dioxide 24 mmol/L (22.0-30.0); Estimated Glomerular Filt Rate 67 ml/min (>60); GFR (African American) 81 ML/MIN (>60)
[2022-08-13 18:28] LABS: Albumin/Globulin Ratio 0.9 (1.1-1.8); Calcium 8.5 mg/dl (8.4-10.2); Globulin 3.4 g/dL (1.3-3.2); Glucose 103 mg/dl (74-100); Magnesium 1.4 mg/dl (1.6-2.3); Total Protein,Serum 6.6 g/dl (6.3-8.2)
== END ==
PROVIDERS: PCP Nurse Practitioner Family; Visit Provider Nurse Practitioner Family
DX: E86.0 Dehydration (principal); R79.0 Abnormal level of blood mineral
CPT/HCPCS: 36415; 80053; 83735

== ENCOUNTER → 2022-08-19 13:57 | Outpatient (CLI) | payer MEDICARE, OTHER, SELFPAY ==
[2022-08-19 15:50] LABS: C-Reactive Protein 2.2 mg/L (0-4)
[2022-08-22 20:09] LABS: Fungitell(Beta D-Glucan) Serum 63 pg/mL (<80)
[2022-08-24 17:46] LABS: Aspergillus flavus Negative (Neg:<1:1); Aspergillus fumigatus Negative (Neg:<1:1); Aspergillus niger Negative (Neg:<1:1); Blastomyces Antibody Negative (Neg:<1:1)
== END ==
PROVIDERS: PCP Nurse Practitioner Family; Visit Provider Internal Medicine Pulmonary Disease
DX: B44.9 Aspergillosis, unspecified (principal); J84.10 Pulmonary fibrosis, unspecified; R06.09 Other forms of dyspnea
CPT/HCPCS: 36415; 86140; 86606; 86612; 87449

== ENCOUNTER → 2022-09-09 10:41 | Outpatient (CLI) | payer MEDICARE, OTHER, SELFPAY ==
--- NOTE | 2022-09-09 10:45 | XR_ITS ---
FINAL REPORT CLINICAL HISTORY: SOB COMPARISON: 07/31/2022 FINDINGS: TWO-VIEW CHEST The heart size is normal. The mediastinum is normal. The lungs are hyperinflated consistent with COPD. There is bronchial wall thickening consistent with bronchitis. Findings are similar to previous. There is no pneumothorax. IMPRESSION: COPD and bronchitis. Reviewed, Interpreted and Dictated by Niko Glez III, MD Transcribed by Loan Askew Authenticated and [facility]
== END ==
PROVIDERS: PCP Internal Medicine Adolescent Medicine; Visit Provider Internal Medicine Pulmonary Disease
DX: R06.02 Shortness of breath (principal)
CPT/HCPCS: 71046

== ENCOUNTER → 2022-11-28 07:48 | Outpatient (CLI) | payer MEDICARE, OTHER, SELFPAY ==
--- NOTE | 2022-11-28 08:59 | CT_ITS ---
FINAL REPORT TECHNIQUE: Axial images were obtained from the lung apex to the mid abdomen by computed tomography. Coronal reformatted images were obtained. This study was performed with techniques to keep radiation doses as low as reasonably achievable, (ALARA). Individualized dose reduction techniques using automated exposure control or adjustment of mA and/or kV according to the patient''s size were employed. CLINICAL HISTORY: Lung nodules and cavitary lesions, infected bullae COMPARISON: 08/11/2022 FINDINGS: There is no axillary adenopathy. There is no hilar or mediastinal adenopathy. Heart size is normal. There is no pericardial or pleural effusion. There has been partial interval improvement in the air and fluid collection involving the anterior mediastinum. The air has resolved but the fluid persists. This area measures 2.6 cm, previously measuring 4.2 cm, and is of uncertain etiology. There is moderate emphysema. Mild scarring is noted. The right upper lobe cavitary nodule measures 13 mm and previously measured 16 mm. Previously seen lingular cavitary nodular opacity has resolved. A small nodule inferior to this in the lingula measures 6 mm and appears stable. There is no new pulmonary abnormality. Limited images of the upper abdomen demonstrate multiple pancreatic calcifications consistent with chronic pancreatitis. IMPRESSION: Partial improvement in anterior mediastinal fluid collection and cavitary right upper lobe nodule. These may be inflammatory or possibly neoplastic. Resolution of lingular nodular opacity. No new pulmonary mass or nodule. Reviewed, Interpreted and Dictated by Niko Glez III, MD Transcribed by Estella Blair Authenticated and [facility]
[2022-11-28 11:16] LABS: Alanine Aminotransferase 37 U/L (12-78); Albumin Level 3.4 g/dl (3.5-5.0); Albumin/Globulin Ratio 1.2 (1.1-1.8); Alkaline Phosphatase 104 U/L (38-126); Anion Gap 16.8 mEq/L (5-15); Aspartate Amino Transferase 67 U/L (17-59); Bilirubin,Total 0.4 mg/dl (0.2-1.3); Blood Urea Nitrogen 16 mg/dl (9-20); Calcium 8.7 mg/dl (8.4-10.2); Carbon Dioxide 24 mmol/L (22.0-30.0); Chloride 99 mmol/L (98-107); Estimated Glomerular Filt Rate 67 ml/min (>60); GFR (African American) 81 ML/MIN (>60); Globulin 2.9 g/dL (1.3-3.2); Glucose 177 mg/dl (74-100); Magnesium 1.6 mg/dl (1.6-2.3); Potassium 4.8 mmoL/L (3.5-5.1); Sodium 135 mmol/L (136-145); Total Protein,Serum 6.3 g/dl (6.3-8.2)
== END ==
PROVIDERS: PCP Nurse Practitioner Family; Visit Provider Internal Medicine Pulmonary Disease
DX: R91.8 Other nonspecific abnormal finding of lung field (principal); R06.02 Shortness of breath; E86.0 Dehydration; R79.0 Abnormal level of blood mineral
CPT/HCPCS: 36415; 71250; 80053; 83735; 94060; 94618; 94726; 94729

== ENCOUNTER → 2023-02-27 12:47 | Outpatient (CLI) | payer MEDICARE, OTHER, SELFPAY ==
--- NOTE | 2023-02-27 12:51 | CT_ITS ---
FINAL REPORT TECHNIQUE: Thin section axial images were obtained from the lung apices through the upper abdomen without contrast. This study was performed with techniques to keep radiation doses as low as reasonably achievable (ALARA). Individualized dose reduction techniques using automated exposure control or adjustment of mA and/or kV according to the patient's size were employed. CLINICAL HISTORY: 3 mth F/U, soa COMPARISON: 11/28/2022 FINDINGS: There is no mediastinal, hilar, or axillary lymphadenopathy. There is a small fluid collection in the anterior mediastinum that has decreased in size since the prior CT. On today's examination this measures 2 x 1 cm in size, and was 2.6 x 1.8 cm in October. No pleural or pericardial effusion. Changes of emphysema are again noted. There is a new 8 mm spiculated appearing nodule in the superior segment of the left lower lobe. There is evidence of prior granulomatous disease. The right upper lobe cavitary appearing nodule noted on prior exams is unchanged at 12 mm. There is a 2.5 mm or less right lower lobe nodule, seen in image #59, which is stable. There is a 6 mm right lower lobe nodule in image #60, also stable. There is diffuse fatty infiltration of the liver, and changes of chronic pancreatitis are again identified.. There is no acute osseous abnormality. IMPRESSION: The right upper lobe cavitary nodule noted on prior chest CTs is unchanged in appearance since October. There is a new spiculated appearing 8 mm nodule in the superior segment of the left lower lobe when compared to the prior films. Would recommend 3-month follow-up CT for further evaluation. Reviewed, Interpreted and Dictated by Cinthya Wong MD Transcribed by Gwen Engel Authenticated and [facility]
== END ==
PROVIDERS: PCP Nurse Practitioner Family; Visit Provider Internal Medicine Pulmonary Disease
DX: R91.8 Other nonspecific abnormal finding of lung field (principal)
CPT/HCPCS: 71250

== ENCOUNTER 2023-03-26 18:13 | Observation (INO) | payer MEDICARE, OTHER, SELFPAY ==
[2023-03-26] VITALS (7 sets, daily range): BP systolic 108–129; BP diastolic 66–91; PULSE 101–113; RESP 16–20; TEMP 36.6–36.7; O2SAT 95–100; BMI 18.7; BMI 19.9
--- NOTE | 2023-03-26 18:13 | PC.NURSE ---
Fall risk bracelet applied to patient; call light within reach of patient
--- NOTE | 2023-03-26 18:30 | PC.NURSE ---
Rounded on patieent; warm blanket provided to patient. Call light within reach of patient
--- NOTE | 2023-03-26 18:35 | CT_ITS ---
PROCEDURE INFORMATION: Exam: CT Cervical Spine Without Contrast Exam date and time: 03/26/2023 7:08 PM Age: 67 years old Clinical indication: Injury or trauma; Fall; Additional info: Fall injury TECHNIQUE: Imaging protocol: Computed tomography of the cervical spine without contrast. Radiation optimization: All CT scans at this facility use at least one of these dose optimization techniques: automated exposure control; mA and/or kV adjustment per patient size (includes targeted exams where dose is matched to clinical indication); or iterative reconstruction. REPORTING DATA: Count of CT and Cardiac NM exams in prior 12 months: This patient has received 4 known CTs and 0 known cardiac nuclear medicine studies in the 12 months prior to the current study. COMPARISON: [facility] MR cervical spine wo con 10/19/2017 1:55 PM FINDINGS: Bones/joints: No cervical spine fracture or acute listhesis. Severe degenerative change at the C1-C2 articulation. C2-C3: Minimal degenerative disc disease. No central canal stenosis. Severe bilateral facet arthropathy. Moderate right and mild left neural foraminal stenosis. C3-C4: Minimal degenerative disc disease. Severe left and mild right facet arthropathy. No central canal stenosis. Severe left and mild right neural foraminal stenosis. C4-C5: Minimal degenerative disc disease. Severe left facet arthropathy is causing slight grade 1 anterolisthesis of C4 over C5. No central canal stenosis. Severe left neural foraminal stenosis. C5-C6: Minimal degenerative disc disease. Severe left facet arthropathy with fusion of the facet joint. No central canal stenosis. No neural foraminal stenosis. C6-C7: Severe degenerative disc disease. Severe left and mild right facet arthropathy. No central canal stenosis. Severe left and mild right neural foraminal stenosis. C7-T1: Mild degenerative disc disease. Moderate left facet arthropathy. Moderate bilateral neural foraminal stenosis. Lungs: Severe emphysema at the lung apices with mild biapical scarring. Vasculature: Moderate atherosclerotic disease. Soft tissues: Unremarkable. IMPRESSION: 1. No acute findings. 2. Moderate to severe cervical spine degenerative changes. 3. Severe emphysema at the lung apices.
--- NOTE | 2023-03-26 18:35 | CT_ITS ---
PROCEDURE INFORMATION: Exam: CT Head Without Contrast Exam date and time: 03/26/2023 7:06 PM Age: 67 years old Clinical indication: Injury or trauma; Fall TECHNIQUE: Imaging protocol: Computed tomography of the head without contrast. Radiation optimization: All CT scans at this facility use at least one of these dose optimization techniques: automated exposure control; mA and/or kV adjustment per patient size (includes targeted exams where dose is matched to clinical indication); or iterative reconstruction. REPORTING DATA: Count of CT and Cardiac NM exams in prior 12 months: This patient has received 4 known CTs and 0 known cardiac nuclear medicine studies in the 12 months prior to the current study. COMPARISON: CT HEAD/BRAIN WO CON 03/26/2022 6:38 PM FINDINGS: Brain: Minimal amount of scattered areas of hypoattenuation of the supra tentorial white matter are likely the sequela of chronic small vessel ischemic disease. Old bilateral basal ganglia punctate lacunar infarcts. No hemorrhage, edema, or mass effect. Moderate parenchymal atrophy. Cerebral ventricles: No ventriculomegaly. Paranasal sinuses: Visualized sinuses are unremarkable. No fluid levels. Mastoid air cells: Visualized mastoid air cells are well aerated. Bones/joints: Unremarkable. No acute fracture. Soft tissues: Unremarkable. Vasculature: Moderate atherosclerotic disease. IMPRESSION: No acute intracranial findings.
--- NOTE | 2023-03-26 18:36 | XR_ITS ---
PROCEDURE INFORMATION: Exam: XR Chest Exam date and time: 03/26/2023 7:24 PM Age: 67 years old Clinical indication: Dyspnea TECHNIQUE: Imaging protocol: Radiologic exam of the chest. Views: 1 view. COMPARISON: CT CHEST WO CON 02/27/2023 1:03 PM FINDINGS: Lungs: Unremarkable. No consolidation. Pleural spaces: Unremarkable. No pleural effusion. No pneumothorax. Heart/Mediastinum: Unremarkable. No cardiomegaly. Bones/joints: Unremarkable. IMPRESSION: No acute findings.
--- NOTE | 2023-03-26 18:38 | HMH.EDGENADL ---
Discharge Plan Disposition Patient Disposition: Admitted Clinical Impressions Clinical Impression: Syncope, Frequent falls, Chest wall contusion, Minor head injury, Cervical strain, Unable to care for self Discharge ED Provider: Vinod Bell General Adult HPI General Chief complaint: Weakness Stated complaint: weakness Time Seen by Provider: 03/26/23 18:30 Mode of Arrival: EMS Source of Information: Patient Limitations: No Limitations Description of Symptoms (Recalled from ER Triage Doc. by RN): Presents to ED with c/o BLE weakness. Patient further reports he fell yesterday +LOC patient did hit her head. Patient reports he went to Rehab @ [place] about a month ago and was not doing any better when he left. 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 Rubion is not on a blood thinner. PMH:COPD and CHF. Wears 2L NC PRN @ home. History of Present Illness HPI narrative: Patient is a 67-year-old male who has a history of chronic deconditioning over the last year is gotten to the point where he states he cannot get up and walk around at home without losing consciousness. States this is happened 7-8 times in the last month and he does not get around much at home and is unable to care for himself. States that he has a walker but he does not use it because there is not room to use it at home as well. Most recent episode was yesterday states that when he tries to stand up he gets really hot loses consciousness and does not recall anything else that is happened. Has a history of protein calorie malnutrition and alcoholism but claims that he has not been drinking heavily recently. States that he used to drink a lot a long time ago but no longer drinks heavily. Denies any abdominal pain. Does state his bilateral lateral rib cage hurts from recent fall. Also has mild head and neck pain from recent fall. Denies any focal neurologic deficits. Denies feeling any vertiginous symptoms or changes in coordination strength weakness sensory etc. States he would like to be admitted for possible placement in a half-way. Related Data Home Medications Medication Instructions Recorded Confirmed simvastatin 40 mg tablet 40 mg PO HS Cholesterol 05/16/18 03/26/23 quetiapine 200 mg tablet,extended 200 mg PO HS sleep/behaviors 10/07/20 03/26/23 release 24 hr ergocalciferol (vitamin D2) 1,250 50,000 unit PO DIRECTED 07/04/22 11/28/22 mcg (50,000 unit) capsule Supplement thiamine HCl (vitamin B1) 100 mg 100 mg PO DAILY Supplement 07/04/22 11/28/22 tablet metformin 1,000 mg tablet 1,000 mg PO BIDWMEAL Diabetes 07/25/22 03/26/23 omeprazole 20 mg capsule,delayed 20 mg PO DAILY GERD 07/25/22 11/28/22 release linagliptin 5 mg tablet (Tradjenta) 5 mg PO DAILY 08/19/22 11/28/22 magnesium oxide 400 mg PO BID 08/19/22 03/26/23 cetirizine 10 mg tablet 10 mg PO DAILY PRN 11/28/22 11/28/22 multivitamin 1 tab PO DAILY 11/28/22 11/28/22 Previous Rx's Medication Instructions Recorded qbkhrz-hsadcqpb-rogasid 1 cap PO TID 30 days #90 caps 07/06/22 10,000-32,000-42,000 unit capsule,delayed rel (Zenpep) albuterol sulfate 90 mcg/actuation 2 inh inhalation QID PRN shortness 08/19/22 aerosol inhaler of breath or wheezing 90 days #8.5 grams fluticasone fur. 200 mcg-umeclid 1 inh inhalation DAILY 90 days #90 11/28/22 62.5 mcg-vilant 25 mcg ea inhalat.powder (Trelegy Ellipta) Allergies Allergy/AdvReac Type Severity Reaction Status Date / Time No Known Allergies Allergy Verified 11/28/22 10:19 [facility] Disclaimer: The information contained in this section may have been updated after the patient was seen, as this information can be updated by other users. Medical History (Updated 03/26/23 @ 18:41 by Vinod Bell MD) Abnormal computerized axial tomography of chest Acute alcoholic pancreatitis Acute pancreatitis Acute renal failure NAPOLEON (acute kidney injury) Alcohol abuse Alcohol withdrawal Alcoholic pancreatitis Anxiety Arthritis
--- NOTE | 2023-03-26 18:39 | ECG_ITS ---
APPROVED REPORT Exam: Resting ECG HR:106 bpm ECG Measurements Heart Rate 106 AXES OR 200 P 78 QRSd 82 QRS 79 QT 339 T 83 QTc 401 Conclusion SINUS TACHYCARDIA Old anteroseptal changes ABNORMAL ECG UNCONFIRMED REPORT Electronically signed by : Shankar Raya MD 03/27/2023 17:05:50
[2023-03-26 18:51] LABS: Microscopic, Urine URINE MICROSCOPIC (MICROSCOPIC)
[2023-03-26 19:06] LABS: Appearance,Urine CLEAR (Clear); Bilirubin,Urine Negative (Negative); Blood, Urine Negative (Negative); Color,Urine YELLOW (Yellow); Glucose,Urine (UA) Negative (Negative); Ketones,Urine Negative (Negative); Leukocyte Esterase,Urine Negative (Negative); Nitrate,Urine Negative (Negative); Protein,Urine Negative (Negative); Specific Gravity, Urine <= 1.005 (1.005-1.030)
--- NOTE | 2023-03-26 19:21 | PC.NURSE ---
Report handed off to Anabel CHIRINOS
[2023-03-26 19:25] LABS: Basophils % 0.6 % (0.1-2.0); Eosinophils # 0.1 K/mm3 (0.0-0.4); Eosinophils % 1.8 % (0.1-12.0); Hematocrit 33.9 % (42.0-52.0); Hemoglobin 11.2 g/dL (14.1-18.0); Lymphocytes # 2.6 K/mm3 (0.7-4.5); Lymphocytes % 48.8 % (10-50); Mean Corpuscular HGB Conc 33.2 g/dL (31.8-35.4); Mean Corpuscular Hemoglobin 34.6 pg (27.0-31.2); Mean Corpuscular Volume 104.4 fl (80-94); Mean Platelet Volume 8.7 fl (7.4-10.4); Monocytes # 0.4 K/mm3 (0.1-1.0); Monocytes % 7.7 % (1.7-9.3); Neutrophils # 2.2 K/mm3 (1.8-7.8); Neutrophils % 41.1 % (37.0-80.0); Platelet Count 186 K/mm3 (142-424); Red Blood Count 3.25 M/mm3 (4.60-6.20); Red Cell Distribution Width 14.6 % (11.5-17.5); White Blood Count 5.2 K/mm3 (4.8-10.8)
[2023-03-26 19:31] LABS: Alanine Aminotransferase 44 U/L (12-78); Albumin Level 2.9 g/dl (3.5-5.0); Alkaline Phosphatase 267 U/L (38-126); Anion Gap 25.4 mEq/L (5-15); Aspartate Amino Transferase 75 U/L (17-59); Bilirubin,Total 1.2 mg/dl (0.2-1.3); Blood Urea Nitrogen 10 mg/dl (9-20); Calcium 7.6 mg/dl (8.4-10.2); Carbon Dioxide 23 mmol/L (22.0-30.0); Chloride 88 mmol/L (98-107); Creatinine Clearance Estimated 40 mL/min (50-200); Estimated Glomerular Filt Rate 51 ml/min (>60); GFR (African American) 61 ML/MIN (>60); Glucose 157 mg/dl (74-100); Magnesium 1.2 mg/dl (1.6-2.3); Phosphorous 3.2 mg/dl (2.5-4.5); Potassium 3.4 mmoL/L (3.5-5.1); Sodium 133 mmol/L (136-145); Total Protein,Serum 5.9 g/dl (6.3-8.2)
--- NOTE | 2023-03-26 19:35 | PC.NURSE ---
Rounded on patient; PO and pillow provided to patient. Call light within reach of patient
[2023-03-26 19:36] LABS: D-Dimer 0.96 ug/mL (0.0-0.5)
--- NOTE | 2023-03-26 19:40 | PC.NURSE ---
Spoke with daughter about plan of care.
[2023-03-26 19:45] LABS: NT Pro Brain Natriuretic Pep. 265 pg/mL (0-125)
[2023-03-26 19:49] LABS: Troponin I < 0.01 ng/ml (0.00-0.034)
--- NOTE | 2023-03-26 20:30 | PC.NURSE ---
has been paged
--- NOTE | 2023-03-26 20:33 | PC.NURSE ---
on the phone with for admission
--- NOTE | 2023-03-26 20:36 | PC.NURSE ---
pt states he takes alot of home medications but is unable to recall name and dose
--- NOTE | 2023-03-26 20:41 | PC.NURSE ---
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
--- NOTE | 2023-03-26 20:44 | PC.NURSE ---
OBSERVATION ADMISSION TO 207 DX OF SYNCOPE AND INABILITY TO CARE FOR SELF TO SERVICE OF DR. ANAYA TO DR. PACHECO.
--- NOTE | 2023-03-26 21:00 | PC.NURSE ---
ATTEMPTED TO CALL REPORT, NURSE HAD TO BE CALLED IN, AWAITING ARRIVAL
--- NOTE | 2023-03-26 22:34 | PC.NURSE ---
pt arrived on the floor via wheelchair @22:18
--- NOTE | 2023-03-26 22:50 | PC.NURSE ---
Pt unaware of all home medications. Home med rec done to best of ability at this time.
[2023-03-26 23:21] LABS: Troponin I < 0.01 ng/ml (0.00-0.034)
[2023-03-27 00:20] VITALS: PULSE 105; PULSE 111
[2023-03-27 00:50] LABS: Troponin I 0.02 ng/ml (0.00-0.034)
[2023-03-27 04:00] VITALS: BP 108/69; PULSE 120; RESP 18; TEMP 36.8; O2SAT 96; BMI 19.9
[2023-03-27 05:05] VITALS: PULSE 110; PULSE 118
--- NOTE | 2023-03-27 06:46 | PC.NURSE ---
Pt has c/o feeling SOA a couple times t/o shift. Duo neb administered and pt stated favorable results. Bed in low position. Bed alarm on for safety. Call light within reach.
[2023-03-27 08:00] VITALS: BP 125/67; PULSE 112; RESP 17; TEMP 36.8; O2SAT 96
--- NOTE | 2023-03-27 08:25 | SW/DCPLANNER ---
Addendum entered by Pat Godoy 03/27/23 14:31: Myesha galicia/ [facility] stated that services will start Thursday03/30/23 for this patient. Addendum entered by Pat Godoy 03/27/23 11:36: Patient is not interested in placement at this time.Patient stated that he prefers to return home w/ home health services. Patient prefers to use [facility] at time of discharge. Patient may discharge home later today. Original Note: I spoke w/ patient this AM regarding plans once medically stable for discharge. PT is ordered this AM for this patient. I spoke w/ patient and he stated that he currently resides at home alone w/ no assistance. I did discuss w/ patient that due to hospital admission status he would have to go to placement [facility] under [facility] (staying 30 days and monthly income minus $40 is payment). After discussion patient stated that he is not interested in placement. I informed patient that I will come back and speak w/ him once PT evaluation is completed to further discuss discharge plans.
--- NOTE | 2023-03-27 08:27 | EXP.HP ---
History of Present Illness *Admission Date: 03/26/23 *Reason for visit:: Weakness and fatigue *History of present illness: 67-year-old male with long history of chronic and relapsing alcoholism. He has been in and out of extended-care facilities because of inability to self-care and chronic weakness. He came to the ER last night stating I keep falling on a need to go to a group home. He has been drinking a little bit more heavily again, he tells me that he has been drinking 4-5 beers daily. In the ER he was found to have a mild acute kidney injury, be very weak and was admitted to hospital for further evaluation, PT evaluation and care management consult. [facility] Disclaimer: The information contained in this section may have been updated after the patient was seen, as this information can be updated by other users. Medical History (Updated 03/27/23 @ 08:32 by Shankar Raya MD) Abnormal computerized axial tomography of chest Acute alcoholic pancreatitis Acute pancreatitis Acute renal failure NAPOLEON (acute kidney injury) Alcohol abuse Alcohol withdrawal Alcoholic pancreatitis Anxiety Arthritis Asthma Cavitary lesion of lung Chronic pancreatitis Colon cancer COPD (chronic obstructive pulmonary disease) COVID COVID Depression Diabetes mellitus, type 2 Dyspnea on exertion History of gastroesophageal reflux (GERD) Hyperlipidemia Hypertension Hypomagnesemia Hyponatremia Hyponatremia Illiteracy Irritable bowel syndrome (IBS) Lung abscess Pneumonia Pneumonia Polysubstance abuse Protein-calorie malnutrition, mild Protein-calorie malnutrition, moderate Pulmonary emphysema Smoking greater than 30 pack years Tobacco abuse Tobacco use disorder Transaminitis Surgical History History of colon resection History of colonoscopy Family History Mother Family history of diabetes mellitus type II Social History (Updated 03/26/23 @ 22:45 by Marleny Mccallum RN) Smoking Status: Current every day smoker tobacco type: cigarettes packs per day: 1 years smoked: 54 quit status: has quit before second hand exposure: Yes alcohol intake: current counseling provided: provider counseling substance use type: marijuana current occupational status: disabled Travel in the last 8 weeks: None household members: none housing: apartment lives independently: Yes (home health comes twice a week ) marital status: current occupational exposures/hazards: No caffeine: Yes (coffee) physical activity: none do you feel safe at home: Yes Meds Home Medications and Allergies Home Medications Medication Instructions Recorded Confirmed Type simvastatin 40 mg tablet 40 mg PO HS Cholesterol 05/16/18 03/26/23 History quetiapine 200 mg tablet,extended 200 mg PO HS sleep/behaviors 10/07/20 03/26/23 History release 24 hr ergocalciferol (vitamin D2) 1,250 50,000 unit PO .TWICE A WEEK 07/04/22 03/27/23 History mcg (50,000 unit) capsule Supplement thiamine HCl (vitamin B1) 100 mg 100 mg PO DAILY Supplement 07/04/22 03/27/23 History tablet gotqig-kcybixhe-qnwstcr 1 cap PO TID 30 days #90 caps 07/06/22 03/27/23 Rx 10,000-32,000-42,000 unit capsule,delayed rel (Zenpep) metformin 1,000 mg tablet 500 mg PO BIDWMEAL Diabetes 07/25/22 03/27/23 History omeprazole 20 mg capsule,delayed 20 mg PO DAILY Acid Reflux 07/25/22 03/27/23 History release albuterol sulfate 90 mcg/actuation 2 inh inhalation QID PRN shortness 08/19/22 03/26/23 Rx aerosol inhaler of breath or wheezing 90 days #8.5 grams linagliptin 5 mg tablet (Tradjenta) 5 mg PO DAILY 08/19/22 03/27/23 History magnesium oxide 400 mg PO BID 08/19/22 03/26/23 History fluticasone fur. 200 mcg-umeclid 1 inh inhalation DAILY 90 days #90 11/28/22 03/27/23 Rx 62.5 mcg-vilant 25 mcg ea inhalat.powder (Trelegy Ellipta) multivitamin 1 tab PO DAILY
--- NOTE | 2023-03-27 11:24 | PC.NURSE ---
courtesy tech note: pt is sleeping in bed. water pitcher was refilled. call light is within reach.
[2023-03-27 12:07] VITALS: PULSE 112; PULSE 122
--- NOTE | 2023-03-27 12:22 | HMH.PTEV ---
Physical Therapy Evaluation Rehab PT IP Evaluation Start: 03/27/23 05:42 Freq: ONCE Status: Active Protocol: Document 03/27/23 12:18 PHORDEE DEE (Rec: 03/27/23 12:22 PHORNE [id number]) Subjective/History History History 67 yowm adm to [facility] with poss syncope. He has PMH of alcoholism, pancreatitis, COPD , colon cancer, HTN, HLD. He reports he lives alone, no steps to enter the sdome, and he is independent with all mobility using SC. Subjective Subjective Currently he reports feeling better than on admission. No c /o pain or dizziness. New diagnosis of cancer in past 12 No months? Rehab PT IP Eval Objective Appearance Patient Behavior Appropriate Patient Orientation Person,Place,Time Difficulty following instructions none Speech Pattern Clear Ambulation Patient Able to Ambulate Yes Ambulation Observation IP General Gait Pattern Observation Wide Based Gait Ambulation Distance (feet) 40 Ambulation Assistive Device Straight Cane Ambulation Ability Independent Balance Ability to Arise Able, uses arms to help Sitting Balance Steady, safe Standing Balance Steady, wide stance Dynamic Sitting Balance Ability Good Dynamic Standing Balance Ability Good Transfers Bed Transfer Ability Independent Chair Transfer Ability Independent Sit to Stand Bed Transfer Ability Independent Sit to Stand Chair Transfer Ability Independent ROM All Extremities PT ROM Status WFL MMT All Extremities PT MMT WFL Rehab PT IP prob,goals,plan Problems Date of Evaluation: 03/27/23 Discharge Plan PT Discharge Plan Pt is currently at baseline for all mobility and is appropriate to return home once medically stable for d/c. Eval Complexity Eval Charge Codes 19991 - High Complexity PHYSICIAN CERTIFICATION: I certify the specified therapy services for Noah Rivero JR are required, authorized, and reviewed every 30 days.
[2023-03-27 14:13] VITALS: BMI 19.9
[2023-03-27 14:51] LABS: Chloride 93 mmol/L (98-107); Sodium 132 mmol/L (136-145)
[2023-03-27 14:52] LABS: Potassium 4.9 mmoL/L (3.5-5.1)
[2023-03-27 14:54] LABS: Blood Urea Nitrogen 10 mg/dl (9-20); Creatinine Clearance Estimated 40 mL/min (50-200); Estimated Glomerular Filt Rate 47 ml/min (>60); GFR (African American) 56 ML/MIN (>60)
[2023-03-27 14:55] LABS: Anion Gap 16.9 mEq/L (5-15); Calcium 7.7 mg/dl (8.4-10.2); Carbon Dioxide 27 mmol/L (22.0-30.0); Glucose 195 mg/dl (74-100)
[2023-03-27 16:00] VITALS: BP 111/65; PULSE 110; RESP 19; TEMP 37; O2SAT 98
--- NOTE | 2023-03-27 16:53 | EXP.DC.SUM ---
General Admission date:: 03/26/23 Discharge date: 03/27/23 HPI HPI HPI: 67-year-old male with long history of chronic and relapsing alcoholism. He has been in and out of extended-care facilities because of inability to self-care and chronic weakness. He came to the ER last night stating I keep falling on a need to go to a care home. He has been drinking a little bit more heavily again, he tells me that he has been drinking 4-5 beers daily. In the ER he was found to have a mild acute kidney injury, be very weak and was admitted to hospital for further evaluation, PT evaluation and care management consult. Hospital Course Hospital Course Hospital Course: Patient was admitted, was given electrolyte replacement and calcium replacement which stabilized his NAPOLEON and hypocalcemia. He was able to eat and drink well today. He initially had requested placement in a care home when he came into the hospital but apparently he was slightly intoxicated per his report as he has been drinking 4 or 5 beers daily and in my experience with Mr. Rivero usually he is a significant underestimate or of his alcohol intake. This morning he decided he did not want to go to a care home especially since given his Medicaid plan he would have to stay 30 days or he would incur private pay fees. We did evaluate him with physical therapy, he was able to walk 40 feet under his own power without assistance. He has been able to do his own ADLs. There is really no medical indication for him to remain in the hospital. He will be discharged home on his regular medications. I will see him in the office Thursday to follow-up his NAPOLEON and do blood work. We will initiate home health therapy and this has been arranged for Thursday. He is certainly instructed to cut back his alcohol use as we talked about many times. Exam Data for Last 24 hours Vital signs and Labs for Last 24 Hours: Temp Pulse Resp BP Pulse Ox O2 Del Method O2 Flow Rate 98.6 F 110 H 19 111/65 98 Room Air 2 03/27/23 16:00 03/27/23 16:00 03/27/23 16:00 03/27/23 16:00 03/27/23 16:00 03/27/23 16:00 03/27/23 13:00 Laboratory Results - last 24 hr 03/26/23 18:45: Urine Color Yellow, Urine Appearance Clear, Urine pH 6.0, Ur Specific [place] <= 1.005, Urine Protein Negative, Urine Glucose (UA) Negative, Urine Ketones Negative, Urine Blood Negative, Urine Nitrate Negative, Urine Bilirubin Negative, Urine Urobilinogen 2.0, Ur Leukocyte Esterase Negative, Urine RBC None, Urine WBC None, Ur Squamous Epith Cells None, Urine Bacteria None 03/26/23 18:53: WBC 5.2, RBC 3.25 L, Hgb 11.2 L, Hct 33.9 L, MCV 104.4 H, MCH 34.6 H, MCHC 33.2, RDW 14.6, Plt Count 186, MPV 8.7, Neut % (Auto) 41.1, Lymph % (Auto) 48.8, Traill % (Auto) 7.7, Eos % (Auto) 1.8, Baso % (Auto) 0.6, Neut # (Auto) 2.2, Lymph # (Auto) 2.6, Traill # (Auto) 0.4, Eos # (Auto) 0.1, Baso # (Auto) 0.0, D-Dimer 0.96 H, Sodium 133 L, Potassium 3.4 L, Chloride 88 L, Carbon Dioxide 23, Anion Gap 25.4 H, BUN 10, Creatinine 1.40 H, Estimated Creat Clear 40, Estimated GFR 51 L, Est GFR ( Amer) 61, Glucose 157 H, Calcium 7.6 L, Phosphorus 3.2, Magnesium 1.2 L, Total Bilirubin 1.2, AST 75 H, ALT 44, Alkaline Phosphatase 267 H, Troponin I < 0.01, NT-Pro-B Natriuret Pep 265 H, Total Protein 5.9 L, Albumin 2.9 L, Globulin 3.0, Albumin/Globulin Ratio 1.0 L 03/26/23 22:45: Troponin I < 0.01 03/27/23 00:20: Troponin I 0.02 03/27/23 14:25: Sodium 132 L, Potassium 4.9 D, Chloride 93 L, Carbon Dioxide 27, Anion Gap 16.9 H, BUN 10, Creatinine 1.50 H, Estimated Creat Clear 40, Estimated GFR 47 L, Est GFR ( Amer) 56 L, Glucose 195 H D, Calcium 7.7 L I & O for Last 24 hours: Intake & Output 03/25/23 03/26/23 03/27/23 10/28/23 11:59 11:59 11:59 11:59 Intake Total 250 / 250 360 / 360 Output Total 460 / 460 0 / 0 Balance -210 / -210 360 / 360 Weight 131 lb 8 oz 131 lb 7.739 oz Constitutional Constitutional: no acute distress *Routi
--- NOTE | 2023-03-30 16:41 | CARE MANAGER ---
Spoke with patient. He states he is aware of his follow up appointment. He did not have any new medications and denies questions or concerns. CANDIS Shepard
== END 2023-03-27 17:15 | disposition home health service (06) ==
LOC: ER 20:29 → 2ND 20:53
PROVIDERS: Admitting Provider Family Medicine; Emergency Provider Student in an Organized Health Care Education/Training Program; PCP Internal Medicine Adolescent Medicine; Visit Provider Internal Medicine Adolescent Medicine
DX: R55 Syncope and collapse (principal); R29.6 Repeated falls; J43.8 Other emphysema; R06.2 Wheezing; E83.51 Hypocalcemia; N17.9 Acute kidney failure, unspecified; Z79.899 Other long term (current) drug therapy; Z79.4 Long term (current) use of insulin; E11.9 Type 2 diabetes mellitus without complications; Z86.16 Personal history of COVID-19; Z68.1 Body mass index [BMI] 19.9 or less, adult; E43 Unspecified severe protein-calorie malnutrition; F10.20 Alcohol dependence, uncomplicated
CPT/HCPCS: 36415; 70450; 71045; 72125; 80048; 80053; 81001; 83735; 83880; 84100; 84484; 85025; 85378; 93005; 94640; 97163; 99285; G0378; J3475

== ENCOUNTER → 2023-03-31 15:50 | Outpatient (CLI) | payer MEDICARE, OTHER, SELFPAY ==
--- NOTE | 2023-03-31 16:01 | XR_ITS ---
PROCEDURE INFORMATION: Exam: XR Chest Exam date and time: 03/31/2023 4:03 PM Age: 67 years old Clinical indication: Shortness of breath; Additional info: Pnm TECHNIQUE: Imaging protocol: Radiologic exam of the chest. Views: 2 views. COMPARISON: CR XR CHEST PORTABLE 03/26/2023 7:24 PM , 09/09/2022 FINDINGS: Lungs: Unremarkable. No consolidation. Hyperlucent changes demonstrated. Persistent region of nodularity and scarring left upper lobe. Findings unchanged. Pleural spaces: Unremarkable. No pleural effusion. No pneumothorax. Heart/Mediastinum: Unremarkable. No cardiomegaly. Diaphragm: Mild flattening of the hemidiaphragms. Bones/joints: Unremarkable. IMPRESSION: 1. No acute findings. 2. Chronic obstructive pulmonary disease.
[2023-03-31 16:18] LABS: ABG Base Excess -8.7 mmol/L (-2.4-2.3); ABG HCO3 16.5 mmhg (22.0-26.0); ABG Oxygen Saturation 97 % (90-100); ABG PCO2 28.8 mmhg (35.0-45.0); ABG PH 7.38 mmol/L (7.35-7.45); ABG PO2 96.8 mmhg (80-100); ABG TCO2 17.3 mmhg (23-27)
[2023-03-31 16:22] LABS: Allen's Test Acceptable; Oxygen RA %; Source Right Radial
[2023-03-31 17:19] LABS: Alanine Aminotransferase 54 U/L (12-78); Albumin Level 2.9 g/dl (3.5-5.0); Alkaline Phosphatase 264 U/L (38-126); Aspartate Amino Transferase 71 U/L (17-59); Bilirubin,Total 1.1 mg/dl (0.2-1.3); Blood Urea Nitrogen 6 mg/dl (9-20); Calcium 7.9 mg/dl (8.4-10.2); Carbon Dioxide 20 mmol/L (22.0-30.0); Chloride 97 mmol/L (98-107); Estimated Glomerular Filt Rate 55 ml/min (>60); GFR (African American) 67 ML/MIN (>60); Globulin 2.9 g/dL (1.3-3.2); Glucose 193 mg/dl (74-100); Sodium 137 mmol/L (136-145); Total Protein,Serum 5.8 g/dl (6.3-8.2)
[2023-03-31 18:33] LABS: Folate > 20.00 ng/mL; Vitamin B12 > 1000 pg/mL (239-931)
== END ==
PROVIDERS: PCP Nurse Practitioner Family; Visit Provider Internal Medicine Pulmonary Disease
DX: D75.89 Other specified diseases of blood and blood-forming organs (principal); G62.9 Polyneuropathy, unspecified; J84.9 Interstitial pulmonary disease, unspecified; R06.02 Shortness of breath
CPT/HCPCS: 36415; 71046; 80053; 82607; 82746; 82803

== ENCOUNTER 2023-03-31 16:29 | Inpatient (IN) | payer MEDICARE, OTHER, SELFPAY ==
[2023-03-31 16:31] VITALS: BP 126/82; PULSE 120; RESP 18; TEMP 36.6; O2SAT 98; BMI 20.2
--- NOTE | 2023-03-31 16:52 | PC.NURSE ---
DR CLEMENS AT BEDSIDE
[2023-03-31 17:00] VITALS: BP 136/86; PULSE 108; RESP 20; O2SAT 98
--- NOTE | 2023-03-31 17:10 | PC.NURSE ---
LAB COMING FOR BLOOD DRAW
--- NOTE | 2023-03-31 17:10 | HMH.EDGENADL ---
Discharge Plan Disposition Chief Complaint: Recheck/Abnormal Lab/Rx Prescriptions Prescriptions: No Action magnesium oxide 400 mg magnesium capsule 400 mg PO BID Tradjenta 5 mg tablet 5 mg PO DAILY albuterol sulfate 90 mcg/actuation HFA aerosol inhaler 2 inh inhalation QID PRN (Reason: shortness of breath or wheezing) 90 Days Qty: 8.5 2RF multivitamin Tablet 1 tab PO DAILY Trelegy Ellipta 200-62.5-25 mcg blister with device 1 inh inhalation DAILY 90 Days Qty: 90 3RF levocetirizine 5 mg tablet 5 mg PO DAILYP PRN (Reason: Allergy Symptoms) simvastatin 40 tablet 40 mg PO HS quetiapine 200 MG tablet extended release 24 hr 200 mg PO HS thiamine HCl (vitamin B1) 100 mg tablet 100 mg PO DAILY Patient Comments: TAKE ONE TABLET BY MOUTH EVERY DAY ergocalciferol (vitamin D2) 1,250 mcg (50,000 unit) capsule 50,000 unit PO .TWICE A WEEK Patient Comments: TAKE ONE CAPSULE BY MOUTH twice a WEEK Rx Instructions: TAKE ONE CAPSULE BY MOUTH twice a WEEK Zenpep 10,000-32,000 -42,000 unit capsule,delayed release(DR/EC) 1 cap PO TID 30 Days Qty: 90 4RF Rx Instructions: administer with meals and/or snacks metformin 1,000 mg tablet 500 mg PO BIDWMEAL omeprazole 20 mg capsule,delayed release(DR/EC) 20 mg PO DAILY Referrals Follow up/Referrals: Crista Brandon APRN [Primary Care Provider] - See instructions Clinical Impressions Clinical Impression: Chronic alcohol abuse, Acidosis, lactic, Severe sepsis, Hypomagnesemia, Hypokalemia, Falls, Unable to care for self Discharge ED Provider: Vinod Bell General Adult HPI General Chief complaint: Recheck/Abnormal Lab/Rx Stated complaint: sent by Dr. Queen , blood gas results Time Seen by Provider: 03/31/23 16:51 Mode of Arrival: Wheelchair Source of Information: Patient Limitations: No Limitations Description of Symptoms (Recalled from ER Triage Doc. by RN): pt came from doctor office today after lab work found an abnormal lactic acid level. office spoke with ER MD. pt has a complex respiratory hx and is being follow by pulmonology as well as alcoholism. History of Present Illness HPI narrative: Patient is a 67-year-old alcoholic with a history of COPD was recently seen with Dr. Queen today in his clinic for worsening respiratory symptoms and COPD exacerbation. A blood gas was performed which did not show any significant acidemia did have a lactic acid of 12. The patient was also mildly hypotensive with systolic blood pressures in the 80s and 90s and for this reason his physician sent him to the emergency department for further evaluation and treatment. The patient has been seen numerous times in our emergency department for alcohol-related conditions and has had frequent falls and deconditioning recently with admission with acute kidney injury and electrolyte abnormalities. He states that his functional status has not improved since that time. He denies any fevers or chills. His only other complaint right now is lower extremity pain with walking currently no pain other than some epigastric abdominal pain. He does have a history of pancreatitis in the past as well. Related Data Home Medications Medication Instructions Recorded Confirmed simvastatin 40 mg tablet 40 mg PO HS Cholesterol 05/16/18 03/31/23 quetiapine 200 mg tablet,extended 200 mg PO HS sleep/behaviors 10/07/20 03/31/23 release 24 hr ergocalciferol (vitamin D2) 1,250 50,000 unit PO .TWICE A WEEK 07/04/22 03/31/23 mcg (50,000 unit) capsule Supplement thiamine HCl (vitamin B1) 100 mg 100 mg PO DAILY Supplement 07/04/22 03/31/23 tablet metformin 1,000 mg tablet 500 mg PO BIDWMEAL Diabetes 07/25/22 03/31/23 omeprazole 20 mg capsule,delayed 20 mg PO DAILY Acid Reflux 07/25/22 03/31/23 release linagliptin 5 mg tablet (Tradjenta) 5 mg PO DAILY 08/19/22 03/31/23 magnesium oxide 400 mg PO BID 08/19/22 03/31/23 mul
[2023-03-31 17:12] LABS: Coronavirus 19, PCR Not Detected (NotDetected); Influenza A, PCR Not Detected (NotDetected); Influenza B, PCR Not Detected (NotDetected)
--- NOTE | 2023-03-31 17:23 | PC.NURSE ---
PT PROVIDED WARM BLANKET, NO FURTHER NEEDS AT THIS TIME. FAMILY AT BEDSIDE
[2023-03-31 17:30] VITALS: BP 127/86; PULSE 109; RESP 20; O2SAT 99
--- NOTE | 2023-03-31 17:36 | PC.NURSE ---
Víctor Rivero calling for an update, asked pt for permission to give him and update and he stated it was ok to release information.
[2023-03-31 17:58] LABS: Basophils % 0.5 % (0.1-2.0); Eosinophils # 0.1 K/mm3 (0.0-0.4); Eosinophils % 1.2 % (0.1-12.0); Hematocrit 32.2 % (42.0-52.0); Hemoglobin 10.6 g/dL (14.1-18.0); Lymphocytes # 2.3 K/mm3 (0.7-4.5); Lymphocytes % 51.5 % (10-50); Mean Corpuscular HGB Conc 33.1 g/dL (31.8-35.4); Mean Corpuscular Hemoglobin 34.6 pg (27.0-31.2); Mean Corpuscular Volume 104.7 fl (80-94); Mean Platelet Volume 8.3 fl (7.4-10.4); Monocytes # 0.3 K/mm3 (0.1-1.0); Monocytes % 7.3 % (1.7-9.3); Neutrophils # 1.8 K/mm3 (1.8-7.8); Neutrophils % 39.5 % (37.0-80.0); Platelet Count 191 K/mm3 (142-424); Red Blood Count 3.07 M/mm3 (4.60-6.20); Red Cell Distribution Width 14.7 % (11.5-17.5); White Blood Count 4.6 K/mm3 (4.8-10.8)
[2023-03-31 18:00] VITALS: BP 130/86; PULSE 111; O2SAT 100
[2023-03-31 18:01] LABS: VBG Base Excess -6.6 mmol/L (-2.4-2.3); VBG HCO3 19.2 mmol/L (23-30); VBG Oxygen Saturation 37.7 % (50-70); VBG PCO2 36.8 mmol/L (35-51); VBG PH 7.34 mmol/L (7.31-7.41); VBG PO2 24.2 mmol/L (28-40); VBG Total CO2 20.4 mmol/L (23-27)
[2023-03-31 18:02] LABS: Chloride 97 mmol/L (98-107)
[2023-03-31 18:03] LABS: Potassium 3.3 mmoL/L (3.5-5.1); Sodium 136 mmol/L (136-145)
[2023-03-31 18:04] LABS: MANUAL DIFFERENTIAL MANUAL DIFFERENTIAL (MANUAL DIFF)
[2023-03-31 18:06] LABS: Alanine Aminotransferase 51 U/L (12-78); Albumin Level 2.8 g/dl (3.5-5.0); Alkaline Phosphatase 240 U/L (38-126); Anion Gap 20.3 mEq/L (5-15); Aspartate Amino Transferase 67 U/L (17-59); Bilirubin,Total 0.9 mg/dl (0.2-1.3); Blood Urea Nitrogen 6 mg/dl (9-20); Calcium 7.4 mg/dl (8.4-10.2); Carbon Dioxide 22 mmol/L (22.0-30.0); Creatine Kinase 48 U/L (55-170); Creatinine Clearance Estimated 44 mL/min (50-200); Estimated Glomerular Filt Rate 51 ml/min (>60); GFR (African American) 61 ML/MIN (>60); Globulin 2.9 g/dL (1.3-3.2); Glucose 130 mg/dl (74-100); Phosphorous 3.9 mg/dl (2.5-4.5); Total Protein,Serum 5.7 g/dl (6.3-8.2)
[2023-03-31 18:07] LABS: Ethyl Alcohol 57 mg/dl (0-10)
[2023-03-31 18:09] LABS: Acetaminophen < 10 ug/ml (10-30); Lactic Acid 10.8 mmol/L (0.7-2.1); Lipase < 10 U/L (23-300); Magnesium 0.9 mg/dl (1.6-2.3); Salicylate < 1.0 mg/dL (2.0-20.0)
--- NOTE | 2023-03-31 18:15 | ECG_ITS ---
APPROVED REPORT Exam: Resting ECG HR:107 bpm ECG Measurements Heart Rate 107 AXES GA 200 P 75 QRSd 81 QRS 70 QT 323 T 82 QTc 386 Conclusion SINUS TACHYCARDIA LOW QRS VOLTAGE IN PRECORDIAL LEADS [QRS DEFLECTION < 1.0 mV IN CHEST LEADS] ABNORMAL RHYTHM ECG UNCONFIRMED REPORT Electronically signed by : Shankar Raya MD 04/02/2023 21:41:37
[2023-03-31 18:20] LABS: Troponin I < 0.01 ng/ml (0.00-0.034)
[2023-03-31 18:24] LABS: Lymphocytes % 51 % (10-50); Macrocytosis 1+; Monocytes % 6 % (2-9); Neutrophils % 43 % (42-76); Platelet Estimate Normal; Total Cells Counted 100
[2023-03-31 18:25] LABS: Stomatocytes 1+
--- NOTE | 2023-03-31 18:30 | PC.NURSE ---
DR CLEMENS AT BEDSIDE TO UPDATE PT AND FAMILY
--- NOTE | 2023-03-31 18:37 | PC.NURSE ---
paged dr hallman
--- NOTE | 2023-03-31 18:53 | PC.NURSE ---
DR CLEMENS SPEAKING WITH DR PACHECO FOR ADMISSION
--- NOTE | 2023-03-31 18:56 | PC.NURSE ---
char house supervisor notified for admission: Dr. Raya- severe sepsis & functional decline
[2023-03-31 19:45] VITALS: BP 129/91; PULSE 78; RESP 16; TEMP 36.7; O2SAT 99
--- NOTE | 2023-03-31 21:29 | PC.NURSE ---
pt arrived to the floor via wheelchair @20:20
[2023-03-31 21:46] LABS: Reflex Lactic Add Lactic Reflex
[2023-03-31 22:00] VITALS: BP 163/81; PULSE 113; RESP 18; TEMP 36.6; O2SAT 98; BMI 21.4
[2023-03-31 23:37] LABS: Troponin I < 0.01 ng/ml (0.00-0.034)
[2023-04-01 00:04] LABS: Lactic Acid Follow Up (RFLX 1) 7.6 mmol/L (0.7-2.1)
[2023-04-01 00:16] LABS: Troponin I < 0.01 ng/ml (0.00-0.034)
[2023-04-01 01:41] LABS: Reflex Lactic (2 hrs) Add Lactic Reflex
[2023-04-01 02:16] LABS: Lactic Acid Follow up (RFLX 2) 6.3 mmol/L (0.7-2.1)
[2023-04-01 04:00] VITALS: BP 107/61; PULSE 107; RESP 18; TEMP 37.1; O2SAT 97; BMI 21.4
--- NOTE | 2023-04-01 05:32 | PC.NURSE ---
pt admitted for sepsis and functional decline. lactic 10. 7 but trending down. pt received lr bolus per sepsis protocol. pt received flagyl and cefepime. pt etoh use. no signs of withdrawal noted
[2023-04-01 07:36] VITALS: BP 131/77; PULSE 118; RESP 18; TEMP 36.6; O2SAT 96
--- NOTE | 2023-04-01 08:06 | EXP.HP ---
History of Present Illness *Admission Date: 03/31/23 *Reason for visit:: Weakness, fatigue *History of present illness: 67-year-old long-term alcoholic with COPD, who has been in and out of the hospital a couple times over the past week with weakness, initially requesting retirement placement and then changed his mind. Went to see his pulmonology clinic today and was found to be dyspneic, with low blood pressure and blood gas was done with severe acidosis. Transferred to ER. In ER was found to have significantly elevated lactate levels but really no other evidence of organ dysfunction, the diagnosis of type B lactic acidosis was considered because of his chronic alcoholism-of note his alcohol level was 57. He was admitted to hospital for antibiotics to treat sepsis, fluids for lactic and further evaluation. [facility] Disclaimer: The information contained in this section may have been updated after the patient was seen, as this information can be updated by other users. Medical History (Updated 04/01/23 @ 00:00 by Donna Mariano RN) Abnormal computerized axial tomography of chest Acute alcoholic pancreatitis Acute pancreatitis Acute renal failure [place] (acute kidney injury) Alcohol abuse Alcohol withdrawal Alcoholic pancreatitis Anxiety Arthritis Asthma Cavitary lesion of lung Chronic pancreatitis Colon cancer COPD (chronic obstructive pulmonary disease) COPD mixed type COVID COVID Depression Diabetes mellitus, type 2 Dyspnea on exertion History of gastroesophageal reflux (GERD) Hyperlipidemia Hypertension Hypomagnesemia Hyponatremia Hyponatremia Illiteracy Irritable bowel syndrome (IBS) Lung abscess Neuropathy Pneumonia Pneumonia Polysubstance abuse Prostate cancer Protein-calorie malnutrition, mild Protein-calorie malnutrition, moderate Pulmonary emphysema Smoking greater than 30 pack years Tobacco abuse Tobacco use disorder Transaminitis Surgical History (Updated 04/01/23 @ 00:00 by Donna Mariano RN) History of colon resection History of colonoscopy S/P TURP Family History Mother Family history of diabetes mellitus type II Social History (Updated 03/26/23 @ 22:45 by Marleny Mccallum RN) Smoking Status: Never smoker years smoked: 54 quit status: has quit before second hand exposure: Yes alcohol intake: current counseling provided: provider counseling substance use type: marijuana current occupational status: disabled Travel in the last 8 weeks: None household members: none housing: apartment lives independently: Yes (home health comes twice a week ) marital status: current occupational exposures/hazards: No caffeine: Yes (coffee) physical activity: none do you feel safe at home: Yes Meds Home Medications and Allergies Home Medications Medication Instructions Recorded Confirmed Type simvastatin 40 mg tablet 40 mg PO HS Cholesterol 05/16/18 04/01/23 History quetiapine 200 mg tablet,extended 200 mg PO HS sleep/behaviors 10/07/20 04/01/23 History release 24 hr thiamine HCl (vitamin B1) 100 mg 100 mg PO DAILY Supplement 07/04/22 04/01/23 History tablet metformin 1,000 mg tablet 500 mg PO BIDWMEAL Diabetes 07/25/22 04/01/23 History omeprazole 20 mg capsule,delayed 20 mg PO DAILY Acid Reflux 07/25/22 04/01/23 History release albuterol sulfate 90 mcg/actuation 2 inh inhalation QID PRN shortness 08/19/22 04/01/23 Rx aerosol inhaler of breath or wheezing 90 days #8.5 grams linagliptin 5 mg tablet (Tradjenta) 5 mg PO DAILY 08/19/22 04/01/23 History magnesium oxide 400 mg PO DAILY 08/19/22 04/01/23 History fluticasone fur. 200 mcg-umeclid 1 inh inhalation DAILY 90 days #90 11/28/22 04/01/23 Rx 62.5 mcg-vilant 25 mcg ea inhalat.powder (Trelegy Ellipta) levocetirizine 5 mg tablet 5 mg PO HS 03/27/23 04/01/23 History idftmg-soizbljq-pfuxdrq 1 cap PO BID 04/01/23 04/01/23 Histor
--- NOTE | 2023-04-01 08:09 | SW/DCPLANNER ---
Addendum entered by Pat Godoy 04/02/23 09:54: Myesha w/ [facility] stated that services will resume for this patient. Addendum entered by Pat Godoy 04/02/23 08:32: Due to patient being able to ambulate 75 ft independently he does not meet SNF level of care. Patient was presented option of possibly going to [place] under [facility] pending: patient refused. MD did discuss outpatient alcohol resources and patient is agreeable at this time. I was able to speak w/ Juan at [facility] and schedule patient for 10AM tomorrow. I did call and update daughter of plan and she stated that someone would have him at this appointment tomorrow. I also updated daughter that patient would be discharging home today. I will resume services w/ [facility] today. I will also provide patient/family w/ [facility] Resource list and information regarding [employer]. Addendum entered by Pat Godoy 04/01/23 15:14: Chanda w/ [facility] is not able to accept this patient. Patient is agreeable for information to be faxed to [place] at this time. I will continue to follow up w/ , patient and Edna at [place]. Addendum entered by Pat [place] 04/01/23 10:03: Chanda w/ [facility] is reviewing referral for [facility] level of care at this time. Original Note: Rounded w/ Dr Raya on patient this AM. Patient at first stated that he is not interested in placement at time of discharge. After discussion between MD and patient he is agreeable for information to be faxed to [facility]. I will follow up w/ Chanda at [facility] this AM and fax patient information. Patient could be ready for discharge tomorrow 04/02/23 pending no setbacks.
[2023-04-01 09:09] LABS: Anion Gap 13.3 mEq/L (5-15); Blood Urea Nitrogen 8 mg/dl (9-20); Calcium 7.2 mg/dl (8.4-10.2); Carbon Dioxide 26 mmol/L (22.0-30.0); Chloride 101 mmol/L (98-107); Creatinine Clearance Estimated 54 mL/min (50-200); Estimated Glomerular Filt Rate 60 ml/min (>60); GFR (African American) 73 ML/MIN (>60); Glucose 167 mg/dl (74-100); Potassium 4.3 mmoL/L (3.5-5.1); Sodium 136 mmol/L (136-145)
--- NOTE | 2023-04-01 09:18 | HMH.OTEV ---
OT Inpatient Evaluation Rehab OT IP Evaluation Start: 04/01/23 08:06 Freq: ONCE Status: Active Protocol: Document 04/01/23 09:07 RAJANSACHA (Rec: 04/01/23 09:18 RAJANSACHA [id number]) Rehab OT IP Assessment Subjective History 67-year-old long-term alcoholic with COPD, who has been in and out of the hospital a couple times over the past week with weakness, initially requesting jail placement and then changed his mind. Went to see his pulmonology clinic today and was found to be dyspneic, with low blood pressure and blood gas was done with severe acidosis. Transferred to ER. In ER was found to have significantly elevated lactate levels but really no other evidence of organ dysfunction, the diagnosis of type B lactic acidosis was considered because of his chronic alcoholism-of note his alcohol level was 57. He was admitted to hospital for antibiotics to treat sepsis, fluids for lactic and further evaluation. I can get up. Patient lives alone in 1 story apt with 1 DAVEY. Patient was independent with ADLs and fx'l mobility prior to hospitalization with using a rollator and straight cane to ambulate. Subjective Instructed Patient on proper hand and foot placement to complete bed mobility from supine->sit @ EOB independently. Patient sat up @ EOB independently. Patient was incontinent of bladder mgt tr this date and unaware. Instructed Patient on participating in sit->stand-> ambulate with CGA to shower. Patient completed doff
--- NOTE | 2023-04-01 11:03 | HMH.PTEV ---
Physical Therapy Evaluation Rehab PT IP Evaluation Start: 04/01/23 08:06 Freq: ONCE Status: Active Protocol: Document 04/01/23 10:53 ROCIO (Rec: 04/01/23 11:02 ROCIO [id number]) Subjective/History History History 67 yowm adm to [facility] with sepsis . PMH of COPD, EtOH abuse, DM, HTN, HLD, prostate cancer. He reports he is independent with all mobility with cane at baseline and lives alone without DAVEY the home. Subjective Subjective Pt has no c/o this am, agrees to mobility assessment. New diagnosis of cancer in past 12 No months? Rehab PT IP Eval Objective Appearance Patient Behavior Appropriate Patient Orientation Person,Place,Time Difficulty following instructions none Speech Pattern Clear Ambulation Patient Able to Ambulate Yes Ambulation Observation IP General Gait Pattern Observation Wide Based Gait Ambulation Distance (feet) 75 Ambulation Assistive Device Straight Cane Ambulation Ability Supervision/Stand by Balance Ability to Arise Able, uses arms to help Sitting Balance Steady, safe Standing Balance Steady, wide stance Dynamic Sitting Balance Ability Good Dynamic Standing Balance Ability Good Transfers Bed Transfer Ability Supervision/Stand by Chair Transfer Ability Supervision/Stand by Sit to Stand Bed Transfer Ability Supervision/Stand by Sit to Stand Chair Transfer Ability Supervision/Stand by ROM All Extremities PT ROM Status WFL MMT All Extremities PT MMT WFL Rehab PT IP prob,goals,plan Problems Date of Evaluation: 04/01/23 Discharge Plan PT Discharge Plan Pt currently presents at baseline for all mobility and is appropriate to return home once medically stable for d/c. Eval Complexity Eval Charge Codes 67290 - High Complexity PHYSICIAN CERTIFICATION: I certify the specified therapy services for Noah Rivero JR are required, authorized, and reviewed every 30 days.
[2023-04-01 13:09] LABS: Magnesium 1.3 mg/dl (1.6-2.3)
[2023-04-01 15:23] VITALS: BP 166/92; PULSE 109; RESP 18; TEMP 36.5; O2SAT 95
[2023-04-01 19:52] VITALS: BP 144/91; PULSE 108; RESP 17; TEMP 37.6; O2SAT 99
[2023-04-02 04:00] VITALS: BP 124/80; PULSE 97; RESP 19; TEMP 36.7; O2SAT 96; BMI 21.4
[2023-04-02 06:09] LABS: Anion Gap 8.8 mEq/L (5-15); Blood Urea Nitrogen 9 mg/dl (9-20); Calcium 7.1 mg/dl (8.4-10.2); Carbon Dioxide 29 mmol/L (22.0-30.0); Chloride 102 mmol/L (98-107); Creatinine Clearance Estimated 54 mL/min (50-200); Estimated Glomerular Filt Rate 60 ml/min (>60); GFR (African American) 73 ML/MIN (>60); Glucose 92 mg/dl (74-100); Potassium 3.8 mmoL/L (3.5-5.1); Sodium 136 mmol/L (136-145)
[2023-04-02 08:00] VITALS: BP 133/83; PULSE 108; RESP 18; TEMP 37.1; O2SAT 94
--- NOTE | 2023-04-02 08:11 | EXP.DC.SUM ---
General Admission date:: 03/31/23 Discharge date: 04/02/23 HPI HPI HPI: 67-year-old long-term alcoholic with COPD, who has been in and out of the hospital a couple times over the past week with weakness, initially requesting fdc placement and then changed his mind. Went to see his pulmonology clinic today and was found to be dyspneic, with low blood pressure and blood gas was done with severe acidosis. Transferred to ER. In ER was found to have significantly elevated lactate levels but really no other evidence of organ dysfunction, the diagnosis of type B lactic acidosis was considered because of his chronic alcoholism-of note his alcohol level was 57. He was admitted to hospital for antibiotics to treat sepsis, fluids for lactic and further evaluation. Hospital Course Hospital Course Hospital Course: Patient was admitted, treated for sepsis with IV cefepime. He was given IV fluids. His lactate levels declined but were still abnormal. He had no other evidence of organ dysfunction, with normal liver and kidney values and clear mental status, at his baseline. Diagnosis of type B lactic acidosis secondary to alcoholism was made. Lactate levels very slowly returned to a lower level. In review of his chart he is actually never had a normal lactate level in the past couple of years. I do not feel keeping him in the hospital until lactate normalizes is necessary. Patient had a PT evaluation because of his functional decline issues and his initial request when he came to the hospital to go somewhere where he could be taking care of. He is independent and able to walk 70 yards in the hallway without assistance. He does not qualify for skilled care. He was offered admission to a long-term care facility but using his Medicaid benefit would require a 30-day stay and a commitment to have his disability check held by that facility and he declined this option repeatedly. As a result, he is reached maximal medical improvement in the hospital and be discharged home. Our social services is arranging very short-term follow-up with clinic in [facility] that can help him with alcohol reduction/rehab. He is willing to go. She will also arrange transportation for him. I will see him back next week in my office. I do not believe he needs antibiotics for discharge, we will prescribe magnesium given his slightly low magnesium levels. Overall prognosis is very poor based on his persistent and continuing chronic alcohol abuse. Exam Data for Last 24 hours Vital signs and Labs for Last 24 Hours: Temp Pulse Resp BP Pulse Ox O2 Del Method 98.7 F 108 H 18 133/83 94 L Room Air 04/02/23 08:00 04/02/23 08:00 04/02/23 08:00 04/02/23 08:00 04/02/23 08:00 04/02/23 08:00 Laboratory Results - last 24 hr 04/01/23 08:17: Sodium 136, Potassium 4.3 D, Chloride 101, Carbon Dioxide 26, Anion Gap 13.3, BUN 8 L D, Creatinine 1.20, Estimated Creat Clear 54, Estimated GFR 60, Est GFR ( Amer) 73, Glucose 167 H D, Calcium 7.2 L, Magnesium 1.3 L D 04/02/23 05:27: Sodium 136, Potassium 3.8, Chloride 102, Carbon Dioxide 29, Anion Gap 8.8, BUN 9, Creatinine 1.20, Estimated Creat Clear 54, Estimated GFR 60, Est GFR ( Amer) 73, Glucose 92 D, Calcium 7.1 L I & O for Last 24 hours: Intake & Output 03/30/23 03/31/23 04/01/23 04/02/23 11:59 11:59 11:59 11:59 Intake Total 2665 / 2665 4038 / 4038 Output Total 1150 / 1150 2200 / 2200 Balance 1515 / 1515 1838 / 1838 Weight 141 lb 8 oz 141 lb 12.8 oz Constitutional Constitutional: no acute distress *Routine HEENT Exam Head: Present normocephalic Eye: Present EOMI and PERRL ENT: Present mucous membranes moist *Routine Neck Exam Neck: Present supple; Absent lymphadenopathy *Routine Respiratory Exam Respiratory: Present rhonchi, distant breath sounds and normal respiratory effort *Routine Cardiovascular Exam Cardiovascular: Present RRR *Routine Abdominal Exam Abdominal: Prese
--- NOTE | 2023-04-03 14:59 | CARE MANAGER ---
Called and spoke with patient's daughter, who was with patient at the time of call. She stated that he says he aint doing the best . She is making the changes to his medications that were made at discharge. I notified her of scheduled f/u appt with Dr. Raya.
== END 2023-04-02 10:56 | disposition home or self-care (01) | DRG 872 ==
LOC: ER 16:39 → 2ND 19:49
PROVIDERS: Admitting Provider Internal Medicine Adolescent Medicine; Emergency Provider Student in an Organized Health Care Education/Training Program; PCP Nurse Practitioner Family; Visit Provider Internal Medicine Adolescent Medicine
DX: A41.9 Sepsis, unspecified organism (principal); E87.20 Acidosis, unspecified; K86.0 Alcohol-induced chronic pancreatitis; R65.20 Severe sepsis without septic shock; Z78.9 Other specified health status; N18.9 Chronic kidney disease, unspecified; F17.210 Nicotine dependence, cigarettes, uncomplicated; F10.20 Alcohol dependence, uncomplicated; R29.6 Repeated falls; E83.42 Hypomagnesemia; E87.6 Hypokalemia; E11.40 Type 2 diabetes mellitus with diabetic neuropathy, unspecified; J43.9 Emphysema, unspecified; Z85.038 Personal history of other malignant neoplasm of large intestine; Z85.46 Personal history of malignant neoplasm of prostate; E11.22 Type 2 diabetes mellitus with diabetic chronic kidney disease
CPT/HCPCS: 36415; 71046; 80048; 80053; 80329; 82550; 82607; 82746; 82803; 83605; 83690; 83735; 84100; 84484; 85007; 85025; 87040; 87081; 87636; 93005; 94640; 97163; 97165; 97530; 99291; J0692; J3475

== ENCOUNTER 2023-04-15 13:25 | Emergency (ER) | payer MEDICARE, OTHER, SELFPAY ==
[2023-04-15] VITALS (13 sets, daily range): BP systolic 113–181; BP diastolic 80–127; PULSE 113–138; RESP 16–26; TEMP 36.6; O2SAT 94–100; BMI 22.0
--- NOTE | 2023-04-15 13:32 | ECG_ITS ---
APPROVED REPORT Exam: Resting ECG HR:134 bpm ECG Measurements Heart Rate 134 AXES QRSd 70 QRS 91 QT 288 T 89 QTc 367 Conclusion Sinus tachycardia BORDERLINE RIGHT AXIS DEVIATION [QRS AXIS > 90] SEPTAL MYOCARDIAL INFARCTION , PROBABLY OLD [40+ ms Q WAVE IN V1/V2] ABNORMAL ECG UNCONFIRMED REPORT Electronically signed by : Shankar Raya MD 04/15/2023 17:08:46
--- NOTE | 2023-04-15 13:58 | CT_ITS ---
PROCEDURE INFORMATION: Exam: CT Abdomen And Pelvis With Contrast Exam date and time: 04/15/2023 3:53 PM Age: 67 years old Clinical indication: Abdominal pain; Additional info: Abd pain, dehydration TECHNIQUE: Imaging protocol: Computed tomography of the abdomen and pelvis with contrast. 3D rendering (Not supervised by radiologist): MIP and/or 3D reconstructed images were created by the technologist. Radiation optimization: All CT scans at this facility use at least one of these dose optimization techniques: automated exposure control; mA and/or kV adjustment per patient size (includes targeted exams where dose is matched to clinical indication); or iterative reconstruction. Contrast material: ISOVUE; Contrast volume: 70 ml; Contrast route: IV; REPORTING DATA: Count of CT and Cardiac NM exams in prior 12 months: This patient has received 6 known CTs and 0 known cardiac nuclear medicine studies in the 12 months prior to the current study. COMPARISON: CT ABDOMEN PELVIS WO CON 07/05/2022 7:13 AM FINDINGS: Lungs: Lung bases are clear. Liver: Mild fatty infiltration of the liver which is otherwise unremarkable. Gallbladder and bile ducts: Gallbladder is at least mildly distended which may be due to prolonged fasting. Bile ducts are not dilated. Pancreas: Pancreas is atrophic with numerous calcifications unchanged consistent with chronic calcific pancreatitis. Spleen: Normal. No splenomegaly. Adrenal glands: Normal. No mass. Kidneys and ureters: Normal. No hydronephrosis. Stomach and bowel: Mild-moderate degree of retained stool throughout the colon otherwise GI tract is unremarkable. Appendix: No evidence of appendicitis. Intraperitoneal space: Unremarkable. No free air. No significant fluid collection. Vasculature: Abdominal aorta and iliac vessels are diffusely calcified. There is no aortic aneurysm. Lymph nodes: Unremarkable. No enlarged lymph nodes. Urinary bladder: Unremarkable as visualized. Reproductive: Prostate gland is been removed. Bones/joints: Moderate degenerative changes L5-S1. No acute bony abnormalities. Soft tissues: Unremarkable. IMPRESSION: 1. Nonspecific gallbladder distention which could be further assessed on gallbladder ultrasound exam if clinically warranted. 2. Chronic calcific pancreatitis, unchanged. 3. Additional nonemergent findings as above.
--- NOTE | 2023-04-15 13:59 | XR_ITS ---
FINAL REPORT CLINICAL HISTORY: soa, abd pain COMPARISON: 03/31/2023 FINDINGS: SINGLE-VIEW CHEST The heart size is normal. The mediastinum is normal. There are mild chronic changes at the bases. There is no pneumothorax. IMPRESSION: No acute cardiopulmonary process. Reviewed, Interpreted and Dictated by Kirk Constantino MD Transcribed by Loan Askew Authenticated and [facility]
--- NOTE | 2023-04-15 14:07 | HMH.EDGENADL ---
Discharge Plan Disposition Patient Disposition: Xfer Short-Term Hosp Chief Complaint: Shortness of Breath/Dyspnea Prescriptions Prescriptions: No Action Tradjenta 5 mg tablet 5 mg PO DAILY albuterol sulfate 90 mcg/actuation HFA aerosol inhaler 2 inh inhalation QID PRN (Reason: shortness of breath or wheezing) 90 Days Qty: 8.5 2RF Trelegy Ellipta 200-62.5-25 mcg blister with device 1 inh inhalation DAILY 90 Days Qty: 90 3RF levocetirizine 5 mg tablet 5 mg PO HS Zenpep 10,000-32,000 -42,000 unit Capsule,Delayed Release(Dr/Ec) 1 cap PO BID Rx Instructions: administer with meals and/or snacks magnesium oxide 400 mg magnesium capsule 400 mg PO BID 30 Days Qty: 60 2RF simvastatin 40 tablet 40 mg PO HS quetiapine 200 MG tablet extended release 24 hr 200 mg PO HS thiamine HCl (vitamin B1) 100 mg tablet 100 mg PO DAILY Patient Comments: TAKE ONE TABLET BY MOUTH EVERY DAY omeprazole 20 mg capsule,delayed release(DR/EC) 20 mg PO DAILY Clinical Impressions Clinical Impression: Ascending cholangitis, Chronic alcohol abuse, COPD (chronic obstructive pulmonary disease) Discharge ED Provider: Allan Gorman General Adult HPI <Allan Gorman MD - Last Filed: 04/15/23 15:15> General Chief complaint: Shortness of Breath/Dyspnea Stated complaint: shortness of air Time Seen by Provider: 04/15/23 13:29 Mode of Arrival: EMS Source of Information: Patient and EMS Limitations: No Limitations Description of Symptoms (Recalled from ER Triage Doc. by RN): Present to ED with c/o of SOA that started today. Patient reports productive cough that has been consistant for a few weeks. Denies fever [employer]. PMH: COPD. Patient was admitted to the hospital recently for pneumonia. Patient does not us O2 @ home. Duo neb given en route. Patient further reports abd pain. patient states he was a former alcoholic. History of Present Illness HPI narrative: 67-year-old male history of hypertension, hyperlipidemia, diabetes, COPD still currently smoking a pack a day, CKD presenting with shortness of breath and abdominal pain. Patient states that he started shortness of breath abdominal pain today. Shortness of breath at the beginning worse, but acutely worse today. Denies fevers, nausea, vomiting, chest pain, diaphoresis. Coughing intermittently, is nonproductive. DuoNeb given in route with significant improvement. Related Data Home Medications Medication Instructions Recorded Confirmed simvastatin 40 mg tablet 40 mg PO HS Cholesterol 05/16/18 04/01/23 quetiapine 200 mg tablet,extended 200 mg PO HS sleep/behaviors 10/07/20 04/01/23 release 24 hr thiamine HCl (vitamin B1) 100 mg 100 mg PO DAILY Supplement 07/04/22 04/01/23 tablet omeprazole 20 mg capsule,delayed 20 mg PO DAILY Acid Reflux 07/25/22 04/01/23 release linagliptin 5 mg tablet (Tradjenta) 5 mg PO DAILY 08/19/22 04/01/23 levocetirizine 5 mg tablet 5 mg PO HS 03/27/23 04/01/23 lkqels-uwuzkqos-ljonoqx 1 cap PO BID 04/01/23 04/01/23 10,000-32,000-42,000 unit capsule,delayed rel (Zenpep) Previous Rx's Medication Instructions Recorded albuterol sulfate 90 mcg/actuation 2 inh inhalation QID PRN shortness 08/19/22 aerosol inhaler of breath or wheezing 90 days #8.5 grams fluticasone fur. 200 mcg-umeclid 1 inh inhalation DAILY 90 days #90 11/28/22 62.5 mcg-vilant 25 mcg ea inhalat.powder (Trelegy Ellipta) magnesium oxide 400 mg PO BID 30 days #60 caps 04/02/23 Allergies Allergy/AdvReac Type Severity Reaction Status Date / Time No Known Allergies Allergy Verified 03/31/23 14:38 [facility] <Allan Gorman MD - Last Filed: 04/15/23 15:15> [facility] Disclaimer: The information contained in this section may have been updated after the patient was seen, as this information can be updated by other users. Medical History (Updated 04/15/23 @ 19:39 by Rogelio Shahid MD) Abnormal computerized axial tomography of
[2023-04-15 14:09] LABS: Chloride 106 mmol/L (98-107)
[2023-04-15 14:10] LABS: Potassium 5.1 mmoL/L (3.5-5.1); Sodium 139 mmol/L (136-145)
[2023-04-15 14:12] LABS: Alanine Aminotransferase 26 U/L (12-78); Albumin Level 3.3 g/dl (3.5-5.0); Alkaline Phosphatase 239 U/L (38-126); Anion Gap 13.1 mEq/L (5-15); Aspartate Amino Transferase 45 U/L (17-59); Basophils # 0.1 K/mm3 (0-0.2); Basophils % 0.9 % (0.1-2.0); Bilirubin,Total 1.8 mg/dl (0.2-1.3); Blood Urea Nitrogen 14 mg/dl (9-20); Carbon Dioxide 25 mmol/L (22.0-30.0); Creatinine Clearance Estimated 44 mL/min (50-200); Eosinophils # 0.2 K/mm3 (0.0-0.4); Eosinophils % 2.1 % (0.1-12.0); Estimated Glomerular Filt Rate 47 ml/min (>60); GFR (African American) 56 ML/MIN (>60); Hematocrit 39.4 % (42.0-52.0); Hemoglobin 12.7 g/dL (14.1-18.0); Lymphocytes # 2.5 K/mm3 (0.7-4.5); Lymphocytes % 33.1 % (10-50); Mean Corpuscular HGB Conc 32.3 g/dL (31.8-35.4); Mean Corpuscular Hemoglobin 34.7 pg (27.0-31.2); Mean Corpuscular Volume 107.7 fl (80-94); Mean Platelet Volume 8.5 fl (7.4-10.4); Monocytes # 0.5 K/mm3 (0.1-1.0); Monocytes % 6.6 % (1.7-9.3); Neutrophils # 4.3 K/mm3 (1.8-7.8); Neutrophils % 57.3 % (37.0-80.0); Platelet Count 274 K/mm3 (142-424); Red Blood Count 3.66 M/mm3 (4.60-6.20); Total Protein,Serum 6.9 g/dl (6.3-8.2); White Blood Count 7.4 K/mm3 (4.8-10.8)
[2023-04-15 14:13] LABS: Albumin/Globulin Ratio 0.9 (1.1-1.8); Calcium 8.6 mg/dl (8.4-10.2); Globulin 3.6 g/dL (1.3-3.2); Glucose 147 mg/dl (74-100); Lactic Acid 1.3 mmol/L (0.7-2.1)
[2023-04-15 14:15] LABS: Lipase < 10 U/L (23-300)
[2023-04-15 14:25] LABS: Troponin I < 0.01 ng/ml (0.00-0.034)
--- NOTE | 2023-04-15 14:26 | PC.NURSE ---
Lab @ [facility] obtaining blood cultures
[2023-04-15 14:31] LABS: VBG Base Excess -5.3 mmol/L (-2.4-2.3); VBG HCO3 20.6 mmol/L (23-30); VBG Oxygen Saturation 48.8 % (50-70); VBG PCO2 39.6 mmol/L (35-51); VBG PH 7.33 mmol/L (7.31-7.41); VBG Total CO2 21.8 mmol/L (23-27)
--- NOTE | 2023-04-15 14:56 | PC.NURSE ---
Pt.'s Iv is infiltrated. Attempted to restick patient and was unsuccessful. notified of US guided IV needed
--- NOTE | 2023-04-15 15:08 | HMH.PROCNOTE ---
[facility] Procedure Note Date: 04/15/23 Time: 15:09 Procedure Note:: Procedure: Ultrasound-guided IV Indication: Venous access, tachycardia A 20-gauge long IV was placed in the right basilic vein by myself under direct ultrasound visualization. Images were saved in the patient's permanent record.
--- NOTE | 2023-04-15 15:11 | CT_ITS ---
FINAL REPORT TECHNIQUE: The patient was injected with IV contrast. Axial images were obtained through the chest in a PE protocol. 3-D reconstruction images were also performed. Individualized dose reduction techniques using automated exposure control or adjustment of the MA and/or KV according to patient's size were employed. CLINICAL HISTORY: acute shortness of breath and tachycardia COMPARISON: None FINDINGS: Mediastinal vasculature is adequately opacified. No pulmonary artery filling defects are identified to suggest PE. There is no aortic dissection. There is no axillary adenopathy. There is no hilar or mediastinal adenopathy. The heart size is normal. There is no pericardial or pleural effusion. There is a small cavitary focus in the right upper lobe measuring 1.2 cm in greatest dimension best seen on image 35 of series 1001. There is pleural and parenchymal scarring in the periphery of the upper lobes. There are advanced changes of centrilobular emphysema. Limited images of the upper abdomen demonstrate dense calcifications in the pancreas consistent with chronic pancreatitis. IMPRESSION: No pulmonary embolus or dissection. Cavitary mass right upper lobe measuring 1.2 cm. Per Fleischner criteria consider CT chest in 3 months or PET/CT for further evaluation. Reviewed, Interpreted and Dictated by Kirk Constantino MD Transcribed by Lauryn Chisholm Authenticated and [facility]
--- NOTE | 2023-04-15 15:38 | PC.NURSE ---
Rounded on patient; call light within reach of patient
--- NOTE | 2023-04-15 15:45 | PC.NURSE ---
Pillow provided to patient as well as ice chips. Call light within reach of patient
--- NOTE | 2023-04-15 15:48 | PC.NURSE ---
Patient to CT
--- NOTE | 2023-04-15 16:02 | PC.NURSE ---
Patient back from CT
--- NOTE | 2023-04-15 16:13 | PC.NURSE ---
Rounded on patient; patient requesting for food. MD notified; MD denied patient eating at this time. Call light within reach
[2023-04-15 16:57] LABS: Acetone, Serum (Rapid) None Detected (None Detect)
--- NOTE | 2023-04-15 17:21 | PC.NURSE ---
Daughter called; updated her on patient's plan of care. Will call back when we get CT scans back.
[2023-04-15 18:47] LABS: Bilirubin,Direct 1.2 mg/dl (0.0-0.4); Bilirubin,Indirect 0.4 mg/dL (0.0-0.9); Bilirubin,Total 1.6 mg/dl (0.2-1.3); Bilirubin,Unconjugated 0.4 mg/dL (0.0-1.1)
--- NOTE | 2023-04-15 18:50 | PC.NURSE ---
Patient's BP 176/127 MD notified; obtained a manual BP which was 178/102. MD notified of manual. No new orders at this time
--- NOTE | 2023-04-15 19:14 | PC.NURSE ---
Rounded on patient; call light within reach. Readjusted patient in bed.
--- NOTE | 2023-04-15 19:26 | PC.NURSE ---
Called [facility] about having pt transferred for additional care. Dr Shahid speaking with Dr Burkett. CR
[2023-04-15 19:47] LABS: Troponin I 0.02 ng/ml (0.00-0.034)
--- NOTE | 2023-04-15 20:20 | PC.NURSE ---
Report called to Urszula CHIRINOS @ [facility] ICU
== END 2023-04-15 20:48 | disposition short-term general hospital (02) ==
PROVIDERS: Emergency Medicine; Emergency Provider Emergency Medicine; PCP Internal Medicine Adolescent Medicine
DX: R10.11 Right upper quadrant pain (principal); K83.09 Other cholangitis; R00.0 Tachycardia, unspecified; F10.188 Alcohol abuse with other alcohol-induced disorder; J44.1 Chronic obstructive pulmonary disease with (acute) exacerbation; F17.210 Nicotine dependence, cigarettes, uncomplicated; E78.5 Hyperlipidemia, unspecified; E11.40 Type 2 diabetes mellitus with diabetic neuropathy, unspecified; N18.9 Chronic kidney disease, unspecified; Z79.84 Long term (current) use of oral hypoglycemic drugs; I12.9 Hypertensive chronic kidney disease with stage 1 through stage 4 chronic kidney disease, or unspecified chronic kidney disease
CPT/HCPCS: 36415; 71045; 71275; 74177; 80053; 82009; 82247; 82248; 82803; 83605; 83690; 84484; 85025; 87040; 93005; 96365; 96367; 96375; 99285; J0696; J2405; J2543; Q9967

== ENCOUNTER 2023-05-06 07:47 | Observation (INO) | payer MEDICARE, OTHER, SELFPAY ==
[2023-05-06] VITALS (20 sets, daily range): BP systolic 147–194; BP diastolic 88–131; PULSE 68–103; RESP 17–22; TEMP 36.4–37.2; O2SAT 92–99; BMI 18.6; BMI 17.1
--- NOTE | 2023-05-06 07:03 | PC.NURSE ---
RECEIVED REPORT FROM CANDIS BAER AT [facility]. PATIENT HAS BEEN BEING TREATED WITH SOLUMEDROL AND AZITHROMYCIN FOR THE LAST WEEK WITHOUT IMPROVEMENT AND HAVING CONTINUED SOA. INITIAL PULSE OX 83% ON ROOM AIR; 2L ADDED WITH SATURATION INCR TO LOW 90'SPATIENT MENTATION REMAINS AT BASELINE A&OX3.PT WEIGHT REPORTED TO BE 130 LBS. FULL CODE STATUS.
--- NOTE | 2023-05-06 07:45 | ECG_ITS ---
APPROVED REPORT Exam: Resting ECG HR:85 bpm ECG Measurements Heart Rate 85 AXES FL 194 P 72 QRSd 76 QRS 74 QT 348 T 79 QTc 390 Conclusion SINUS RHYTHM SEPTAL MYOCARDIAL INFARCTION , PROBABLY OLD [40+ ms Q WAVE IN V1/V2] ABNORMAL ECG UNCONFIRMED REPORT Electronically signed by : Shankar Raya MD 05/06/2023 13:22:09
--- NOTE | 2023-05-06 07:54 | XR_ITS ---
FINAL REPORT CLINICAL HISTORY: SOB, cough COMPARISON: 04/15/2023 FINDINGS: SINGLE-VIEW CHEST The heart size is normal. The mediastinum is normal. The lungs are hyperinflated consistent with COPD. There is no pneumothorax. IMPRESSION: COPD Reviewed, Interpreted and Dictated by Niko Glez III, MD Transcribed by Loan Askew Authenticated and [facility]
[2023-05-06 08:11] LABS: Basophils % 0.2 % (0.1-2.0); Eosinophils # 0.4 K/mm3 (0.0-0.4); Hematocrit 39.7 % (42.0-52.0); Hemoglobin 12.6 g/dL (14.1-18.0); Lymphocytes # 2.7 K/mm3 (0.7-4.5); Mean Corpuscular HGB Conc 31.8 g/dL (31.8-35.4); Mean Corpuscular Hemoglobin 32.8 pg (27.0-31.2); Mean Corpuscular Volume 103.2 fl (80-94); Mean Platelet Volume 7.6 fl (7.4-10.4); Monocytes # 0.7 K/mm3 (0.1-1.0); Monocytes % 5.4 % (1.7-9.3); Neutrophils % 70.4 % (37.0-80.0); Platelet Count 296 K/mm3 (142-424); Red Blood Count 3.84 M/mm3 (4.60-6.20); Red Cell Distribution Width 13.7 % (11.5-17.5); White Blood Count 12.7 K/mm3 (4.8-10.8)
[2023-05-06 08:13] LABS: Chloride 101 mmol/L (98-107); Potassium 3.7 mmoL/L (3.5-5.1); Sodium 135 mmol/L (136-145)
--- NOTE | 2023-05-06 08:15 | HMH.EDGENADL ---
Discharge Plan Disposition Patient Disposition: Xfer [facility] Not MCR Cert Condition: Fair Prescriptions Prescriptions: No Action Tradjenta 5 mg tablet 5 mg PO DAILY albuterol sulfate 90 mcg/actuation HFA aerosol inhaler 2 inh inhalation QID PRN (Reason: shortness of breath or wheezing) 90 Days Qty: 8.5 2RF Trelegy Ellipta 200-62.5-25 mcg blister with device 1 inh inhalation DAILY 90 Days Qty: 90 3RF levocetirizine 5 mg tablet 5 mg PO HS Zenpep 10,000-32,000 -42,000 unit Capsule,Delayed Release(Dr/Ec) 1 cap PO BID Rx Instructions: administer with meals and/or snacks magnesium oxide 400 mg magnesium capsule 400 mg PO BID 30 Days Qty: 60 2RF simvastatin 40 tablet 40 mg PO HS quetiapine 200 MG tablet extended release 24 hr 200 mg PO HS thiamine HCl (vitamin B1) 100 mg tablet 100 mg PO DAILY Patient Comments: TAKE ONE TABLET BY MOUTH EVERY DAY omeprazole 20 mg capsule,delayed release(DR/EC) 20 mg PO DAILY Referrals Follow up/Referrals: Shankar Raya MD [Primary Care Provider] - See instructions Clinical Impressions Clinical Impression: Altered mental status, Mild shortness of breath Discharge ED Provider: Fidencio Berg I General Adult HPI General Chief complaint: Shortness of Breath/Dyspnea Stated complaint: CONTINUED SOA Time Seen by Provider: 05/06/23 07:48 Mode of Arrival: Ambulatory Source of Information: Patient and EMS Limitations: No Limitations Description of Symptoms (Recalled from ER Triage Doc. by RN): pt to ed c/o shortness of breath. pt states he has been feeling increasingly more weak and SOA x1 week. ems reports giving 1 duo neb in route to ed. pt denies pain. History of Present Illness HPI narrative: Patient is a 67-year-old male, history of alcohol use, pancreatitis, COPD, colon cancer status post colectomy, hyperlipidemia, hypertension, CKD presenting from his retirement with persistent shortness of breath. Patient was brought into the emergency department at the direction of his daughter, MIGUEL ANGEL. History was briefly conducted with patient at bedside although patient is a poor historian. Patient largely denies any complaints at this time, stating that he does not currently have any complaints but he was previously short of breath, previously had a productive cough. He denies any current chest pain, abdominal pain, nausea, vomiting, fever, chills, diarrhea, constipation, melena. Patient is unable to provide a prior history of what happened following recent hospitalization, transfer due to concerns for ascending cholangitis. Related Data Home Medications Medication Instructions Recorded Confirmed simvastatin 40 mg tablet 40 mg PO HS Cholesterol 05/16/18 04/01/23 quetiapine 200 mg tablet,extended 200 mg PO HS sleep/behaviors 10/07/20 04/01/23 release 24 hr thiamine HCl (vitamin B1) 100 mg 100 mg PO DAILY Supplement 07/04/22 04/01/23 tablet omeprazole 20 mg capsule,delayed 20 mg PO DAILY Acid Reflux 07/25/22 04/01/23 release linagliptin 5 mg tablet (Tradjenta) 5 mg PO DAILY 08/19/22 04/01/23 levocetirizine 5 mg tablet 5 mg PO HS 03/27/23 04/01/23 rajugb-lhiurolo-pwabhic 1 cap PO BID 04/01/23 04/01/23 10,000-32,000-42,000 unit capsule,delayed rel (Zenpep) Previous Rx's Medication Instructions Recorded albuterol sulfate 90 mcg/actuation 2 inh inhalation QID PRN shortness 08/19/22 aerosol inhaler of breath or wheezing 90 days #8.5 grams fluticasone fur. 200 mcg-umeclid 1 inh inhalation DAILY 90 days #90 11/28/22 62.5 mcg-vilant 25 mcg ea inhalat.powder (Trelegy Ellipta) magnesium oxide 400 mg PO BID 30 days #60 caps 04/02/23 Allergies Allergy/AdvReac Type Severity Reaction Status Date / Time No Known Allergies Allergy Verified 03/31/23 14:38 [facility] Disclaimer: The information contained in this section may have been updated after the patient was seen, as this information can be updat
[2023-05-06 08:16] LABS: Alanine Aminotransferase 29 U/L (12-78); Alkaline Phosphatase 116 U/L (38-126); Anion Gap 5.7 mEq/L (5-15); Aspartate Amino Transferase 32 U/L (17-59); Bilirubin,Total 0.7 mg/dl (0.2-1.3); Blood Urea Nitrogen 17 mg/dl (9-20); Calcium 8.1 mg/dl (8.4-10.2); Carbon Dioxide 32 mmol/L (22.0-30.0); Creatinine Clearance Estimated 60 mL/min (50-200); Estimated Glomerular Filt Rate 84 ml/min (>60); GFR (African American) 102 ML/MIN (>60); Glucose 128 mg/dl (74-100)
[2023-05-06 08:17] LABS: Lactic Acid 1.1 mmol/L (0.7-2.1)
--- NOTE | 2023-05-06 08:17 | PC.NURSE ---
unsuccessful blood draw attempt x 2; lab called to draw 2nd blood culture.
[2023-05-06 08:18] LABS: Lipase < 10 U/L (23-300)
[2023-05-06 08:28] LABS: Troponin I < 0.01 ng/ml (0.00-0.034)
[2023-05-06 08:33] LABS: VBG Base Excess 1.9 mmol/L (-2.4-2.3); VBG HCO3 27.4 mmol/L (23-30); VBG Oxygen Saturation 58.6 % (50-70); VBG PCO2 49.3 mmol/L (35-51); VBG PH 7.36 mmol/L (7.31-7.41); VBG PO2 33.2 mmol/L (28-40); VBG Total CO2 28.9 mmol/L (23-27)
--- NOTE | 2023-05-06 09:10 | PC.NURSE ---
PT RESTING ON LEFT SIDE, NO NEEDS AT THIS TIME
--- NOTE | 2023-05-06 09:15 | US_ITS ---
FINAL REPORT CLINICAL HISTORY: RUQ tenderness FINDINGS: RIGHT UPPER QUADRANT ULTRASOUND Sonographic images of the right upper quadrant were obtained. The pancreas is partially obscured.The liver has an unremarkable appearance.The gallbladder appears normal without evidence of gallstones.The common duct measures 4 mm. Limited images of the right kidney are normal. IMPRESSION: No acute process. Reviewed, Interpreted and Dictated by Niko Glez III, MD Transcribed by Loan Askew Authenticated and [facility]
--- NOTE | 2023-05-06 09:18 | PC.NURSE ---
DR ISAAC SPEAKING WITH DAUGHTER
--- NOTE | 2023-05-06 09:29 | CT_ITS ---
FINAL REPORT CLINICAL HISTORY: Progressively worsening AMS COMPARISON: 03/26/2023 FINDINGS: Axial images of the head were obtained without contrast. Coronal reformatted images were also obtained. This study was performed with techniques to keep radiation doses as low as reasonably achievable (ALARA). Individualized dose reduction techniques using automated exposure control or adjustment of mA and/or kV according to the patient's size were employed. There is generalized age appropriate atrophy. There is no evidence of intracranial hemorrhage or mass. The ventricular size is within normal limits. There is no evidence of shift of the midline structures. No skull abnormality is seen on the bone window images. Several small lacunar infarcts are identified, stable since the prior CT. IMPRESSION: No acute intracranial abnormality. Reviewed, Interpreted and Dictated by Niko Glez III, MD Transcribed by Gwen Engel Authenticated and [facility]
--- NOTE | 2023-05-06 09:59 | PC.NURSE ---
PT RETURNED FROM CT
--- NOTE | 2023-05-06 10:29 | PC.NURSE ---
Updated [facility] on pt's POC and status thus far.
[2023-05-06 12:16] LABS: Microscopic, Urine URINE MICROSCOPIC (MICROSCOPIC)
[2023-05-06 12:19] LABS: Appearance,Urine CLEAR (Clear); Blood, Urine Negative (Negative); Color,Urine YELLOW (Yellow); Glucose,Urine (UA) Negative (Negative); Ketones,Urine Negative (Negative); Leukocyte Esterase,Urine Negative (Negative); Nitrate,Urine Negative (Negative); PH,Urine 7.5 (5.0-8.5); Protein,Urine 1+ (Negative); Specific Gravity, Urine 1.015 (1.005-1.030); Urobilinogen,Urine 0.2 EU/dl (0.2)
[2023-05-06 12:23] LABS: Bilirubin,Urine 1+ (Negative)
[2023-05-06 12:30] LABS: Bacteria,Urine Trace /lpf; Squamous Epithelial Cell,Urine Occasional #/hpf (0-5)
--- NOTE | 2023-05-06 13:28 | PC.NURSE ---
ATTEMPTED TO CALL DR GREGORY
--- NOTE | 2023-05-06 17:25 | PC.NURSE ---
Dr. Auguste at bedside discussing care
--- NOTE | 2023-05-06 18:00 | PC.NURSE ---
DR GREGORY SPEAKING WITH DR OWENS, WILL ADMIT PT
--- NOTE | 2023-05-06 18:02 | PC.NURSE ---
POPULATION GENETICIST NOTIFIED OF ADMISSION
--- NOTE | 2023-05-06 18:07 | EXP.HP ---
History of Present Illness *Admission Date: 05/06/23 *Reason for visit:: Confusion, hypertension, muscle twitches *History of present illness: 67-year-old male with history of alcoholism, diabetes, hypertension, mild cognitive impairment who who was recently admitted to [facility] for rehab 2 weeks ago. Since that time he has had progressive decline in his cognition and alertness more acute over the past 3 to 4 days per his daughter who provides history at bedside. She states he has been more fatigued. Having increased muscle fasciculations and spontaneous movement. She is concerned for his increased confusion as he does not recognize her regularly. This is gotten worse over the past few days. A week ago he was diagnosed with shortness of breath and started on antibiotics and steroids. Denies abdominal pain, chest pain, nausea, vomiting, fever or chills. Presented to the ER for further evaluation. On evaluation, patient has mild leukocytosis of 12,000. Is stable on 2 L nasal cannula oxygen. Aside from confusion, spontaneous muscle movement concerning for akathisia, and hypertension, he is otherwise stable. Extensive discussion with patient and family. Discussed potential for sending patient home to [facility]. Strong concern from family about patient's current condition. Medicine consulted for admission and further management of encephalopathy and hypertension. Medicine agreed to admit. On my evaluation, patient has movements consistent with akathisia. He is oriented to self only. Review of medication shows concern for polypharmacy and possible medication side effects. Afebrile. Blood pressure persistently elevated. [facility] Disclaimer: The information contained in this section may have been updated after the patient was seen, as this information can be updated by other users. Medical History Abnormal computerized axial tomography of chest Acute alcoholic pancreatitis Acute pancreatitis Acute renal failure [place] (acute kidney injury) Alcohol abuse Alcohol withdrawal Alcoholic pancreatitis Anxiety Arthritis Asthma Cavitary lesion of lung Chronic pancreatitis Colon cancer COPD (chronic obstructive pulmonary disease) COPD mixed type COVID COVID Depression Diabetes mellitus, type 2 Dyspnea on exertion History of gastroesophageal reflux (GERD) Hyperlipidemia Hypertension Hypomagnesemia Hyponatremia Hyponatremia Illiteracy Irritable bowel syndrome (IBS) Lung abscess Neuropathy Pneumonia Pneumonia Polysubstance abuse Prostate cancer Protein-calorie malnutrition, mild Protein-calorie malnutrition, moderate Pulmonary emphysema Smoking greater than 30 pack years Tobacco abuse Tobacco use disorder Transaminitis Surgical History History of colon resection History of colonoscopy S/P TURP Family History Family history of diabetes mellitus type II Mother Social History Smoking Status: Never smoker years smoked: 54 quit status: has quit before second hand exposure: Yes alcohol intake: current counseling provided: provider counseling substance use type: marijuana current occupational status: disabled Travel in the last 8 weeks: None household members: none housing: apartment lives independently: Yes (home health comes twice a week ) marital status: current occupational exposures/hazards: No caffeine: Yes (coffee) physical activity: none do you feel safe at home: Yes Review of Systems Review of Systems Review of systems (narrative): 14 point review of systems performed, pertinent positives and negatives as per HPI Meds Home Medications and Allergies Home Medications Medication Instructions Recorded Confirmed Type albuterol sulfate 90 mcg/actuation 1 inh inha
[2023-05-06 18:08] LABS: Coronavirus 19, PCR Not Detected (NotDetected); Influenza A, PCR Not Detected (NotDetected); Influenza B, PCR Not Detected (NotDetected)
--- NOTE | 2023-05-06 18:39 | PC.NURSE ---
Called report to Ronna CHIRINOS on Med/Surg
--- NOTE | 2023-05-06 20:00 | PC.NURSE ---
pt. admission limited due to altered mental status, no family in the room at this time.
[2023-05-07 04:00] VITALS: BP 147/86; PULSE 76; RESP 18; TEMP 37.4; O2SAT 96; BMI 17.1
--- NOTE | 2023-05-07 06:16 | PC.NURSE ---
Patient has slept well this shift. Minimal distractions per Dr. Auguste. Patient has not had any urinary output this shift. Patient is alert to name, able to answer simple questions with yes/no. Lungs are clear and diminished at bases. BS active X4. No acute changes noted. Continue plan of care and medsurg protocols. Call levine, bedside table, water pitcher, and personal belongings in reach.
[2023-05-07 06:30] LABS: Basophils % 0.1 % (0.1-2.0); Eosinophils % 0.4 % (0.1-12.0); Hematocrit 32.9 % (42.0-52.0); Lymphocytes # 1.3 K/mm3 (0.7-4.5); Lymphocytes % 24.1 % (10-50); Mean Corpuscular HGB Conc 34.5 g/dL (31.8-35.4); Mean Corpuscular Hemoglobin 34.1 pg (27.0-31.2); Mean Platelet Volume 7.4 fl (7.4-10.4); Monocytes # 0.3 K/mm3 (0.1-1.0); Monocytes % 5.3 % (1.7-9.3); Neutrophils # 3.7 K/mm3 (1.8-7.8); Platelet Count 270 K/mm3 (142-424); Red Blood Count 3.33 M/mm3 (4.60-6.20); Red Cell Distribution Width 13.5 % (11.5-17.5); White Blood Count 5.2 K/mm3 (4.8-10.8)
[2023-05-07 06:33] LABS: Chloride 103 mmol/L (98-107); Potassium 4.2 mmoL/L (3.5-5.1); Sodium 133 mmol/L (136-145)
[2023-05-07 06:36] LABS: Alanine Aminotransferase 23 U/L (12-78); Albumin Level 2.7 g/dl (3.5-5.0); Alkaline Phosphatase 100 U/L (38-126); Anion Gap 5.2 mEq/L (5-15); Aspartate Amino Transferase 23 U/L (17-59); Bilirubin,Total 0.6 mg/dl (0.2-1.3); Blood Urea Nitrogen 20 mg/dl (9-20); Calcium 7.9 mg/dl (8.4-10.2); Carbon Dioxide 29 mmol/L (22.0-30.0); Creatinine Clearance Estimated 55 mL/min (50-200); Estimated Glomerular Filt Rate 75 ml/min (>60); GFR (African American) 90 ML/MIN (>60); Globulin 2.8 g/dL (1.3-3.2); Glucose 160 mg/dl (74-100); Magnesium 1.7 mg/dl (1.6-2.3); Total Protein,Serum 5.5 g/dl (6.3-8.2)
[2023-05-07 06:41] LABS: Hemoglobin 11.3 g/dL (14.1-18.0)
--- NOTE | 2023-05-07 06:52 | PC.NURSE ---
Patient up to bathroom with assist of two, patient is a little unsteady on feet. Alert and oriented this morning able to tell this nurse he was at the hospital, and requesting breakfast.
[2023-05-07 08:00] VITALS: BP 122/78; PULSE 88; RESP 21; TEMP 36.9; O2SAT 94; O2SAT 98
--- NOTE | 2023-05-07 08:31 | HMH.PHAINT1 ---
Pharmacy Intervention Comments: Med reconciliation completed using list from [facility]
[2023-05-07 08:32] VITALS: O2SAT 95
--- NOTE | 2023-05-07 10:08 | HMH.OTEV ---
OT Inpatient Evaluation Rehab OT IP Evaluation Start: 05/06/23 18:07 Freq: ONCE Status: Active Protocol: Document 05/07/23 09:59 RAJANSACHA (Rec: 05/07/23 10:08 MELISSA [id number]) Rehab OT IP Assessment Subjective History 67-year-old male with history of alcoholism, diabetes, hypertension, mild cognitive impairment who who was recently admitted to [facility]term for [facility]hab 2 weeks ago. Since that time he has had progressive decline in his cognition and alertness more acute over the past 3 to 4 days per his daughter who provides history at bedside. She states he has been more fatigued. Having increased muscle fasciculations and spontaneous movement. She is concerned for his increased confusion as he does not recognize her regularly. This is gotten worse over the past few days. A week ago he was diagnosed with shortness of breath and started on antibiotics and steroids. Denies abdominal pain, chest pain, nausea, vomiting, fever or chills. Presented to the ER for further evaluation. On evaluation, patient has mild leukocytosis of 12,000. Is stable on 2 L nasal cannula oxygen. Aside from confusion, spontaneous muscle movement concerning for akathisia, and hypertension, he is otherwise stable. Extensive discussion with patient and family. Discussed potential for sending patient home to longterm. Strong concern from family about patient's current condition. Medicine consulted for admission and further management of encephalopathy and hypertension. Medicine agreed
--- NOTE | 2023-05-07 10:53 | HMH.PTEV ---
Physical Therapy Evaluation Rehab PT IP Evaluation Start: 05/06/23 18:07 Freq: ONCE Status: Active Protocol: Document 05/07/23 10:38 JOSE (Rec: 05/07/23 10:52 JOSE [id number]) Subjective/History History History Pt is a 67 y/o male with history of alcoholism, diabetes, hypertension, mild cognitive impairment who reports to [facility] on 05/06/23 who was recently admitted to assisted for rehab 2 weeks ago. Per history & physical note, since that time he has had progressive decline in his cognition and alertness more acute over the past 3 to 4 days per his daughter who provides history at bedside. She states he has been more fatigued. Having increased muscle fasciculations and spontaneous movement. She is concerned for his increased confusion as he does not recognize her regularly. This is gotten worse over the past few days. A week ago he was diagnosed with shortness of breath and started on antibiotics and steroids. Denies abdominal pain, chest pain, nausea, vomiting, fever or chills. Presented to the ER for further evaluation. On evaluation, patient has mild leukocytosis of 12,000. Is stable on 2 L nasal cannula oxygen. Aside from confusion, spontaneous muscle movement concerning for akathisia, and hypertension, he is otherwise stable. Extensive discussion with patient and family. Discussed potential for sending patient home to assisted. Strong concern from family about patient's current condition. Medicine consulted for admission and further management of
--- NOTE | 2023-05-07 13:43 | PC.NURSE ---
Pt. states he wants to be a DNR and is aox3. Called daughter and made her aware... Iman MICHELLE at [phone]. Pt. states he would like to wait for daughter to return before signing paper. Explained to him the difference between a DNR and DNI.
--- NOTE | 2023-05-07 15:46 | CARE MANAGER ---
Addendum entered by Pat Godoy 05/08/23 08:24: I have updated Chanda galicia/ LEESA that patient will return today. Original Note: Met with patient and his daughter, Iman today to discuss discharge planning. As of right now his wishes are to return to [facility] for skilled care. Sejal is concerned that he may end up needing a residential bed and would like for him to go to [facility] if he does (patient is agreeable to this). Sejal verbally agreed for to send a packet to [facility] so that she can start working with them on arranging a residential bed.
[2023-05-07 16:00] VITALS: BP 138/66; PULSE 79; RESP 19; TEMP 36.8; O2SAT 97
--- NOTE | 2023-05-07 17:08 | EXP.ACUTE.PN ---
Subjective *Date: 05/07/23 *Time: 17:08 Interval history: Patient alert to self and place today. Does have some intermittent confusion at times when daughters in the room but appears to be improving with mentation with decreasing medications. No shortness of breath, fever, chest pain, nausea, vomiting. Toenails trimmed on rounds. Medical Exam Vital signs and Labs for Last 24 Hours: Vital Signs Temp Pulse Pulse Resp BP BP Pulse Ox 05/07/23 14:25 05/07/23 13:00 05/07/23 10:43 05/07/23 09:00 05/07/23 08:00 98 05/07/23 08:32 95 05/07/23 08:00 98.4 F 88 21 122/78 94 L 05/07/23 04:00 99.4 F 76 18 147/86 H 96 05/06/23 20:00 97.6 F 68 17 183/98 H 97 05/06/23 19:02 98.9 F 71 18 174/96 H 97 05/06/23 18:38 98.5 F 75 20 170/112 H 05/06/23 17:30 79 177/103 H 94 L O2 Del Method O2 Flow Rate 05/07/23 14:25 Nasal Cannula 1 05/07/23 13:00 Nasal Cannula 1 05/07/23 10:43 Nasal Cannula 1 05/07/23 09:00 Nasal Cannula 1 05/07/23 08:00 Nasal Cannula 1 05/07/23 08:32 Nasal Cannula 1.5 05/07/23 08:00 Nasal Cannula 1 05/07/23 04:00 Nasal Cannula 2 05/06/23 20:00 Nasal Cannula 1.5 05/06/23 19:02 Nasal Cannula 2 05/06/23 18:38 Nasal Cannula 1 05/06/23 17:30 Nasal Cannula 1 Intake and Output 05/07/23 05/07/23 05/07/23 07:59 15:59 23:59 Intake Total 60 / 780 720 / 780 Output Total 300 / 300 0 / 300 Balance -240 / 480 720 / 480 Intake: Intake, Oral Amount 60 / 780 720 / 780 Output: Output, Urine Amount 300 / 300 0 / 300 Other: Number of Voids 2 Number of Unmeasured Voids 2 Number of Bowel Movements 1 2 Weight 54.204 kg Patient Weight 12/07/23 23:59 Weight 54.204 kg Laboratory Results - last 24 hr 05/06/23 18:00: SARS-CoV-2 (PCR) Not detected, Influenza A Untype (PCR) Not detected, Influenza Type B (PCR) Not detected 05/07/23 06:07: WBC 5.2 D, RBC 3.33 L, Hgb 11.3 L D, Hct 32.9 L, MCV 99.0 H, MCH 34.1 H, MCHC 34.5, RDW 13.5, Plt Count 270, MPV 7.4, Neut % (Auto) 70.0, Lymph % (Auto) 24.1, Reeves % (Auto) 5.3, Eos % (Auto) 0.4, Baso % (Auto) 0.1, Neut # (Auto) 3.7, Lymph # (Auto) 1.3, Reeves # (Auto) 0.3, Eos # (Auto) 0.0, Baso # (Auto) 0.0, Sodium 133 L, Potassium 4.2, Chloride 103, Carbon Dioxide 29, Anion Gap 5.2, BUN 20, Creatinine 1.00, Estimated Creat Clear 55, Estimated GFR 75, Est GFR ( Amer) 90, Glucose 160 H D, Calcium 7.9 L, Magnesium 1.7, Total Bilirubin 0.6, AST 23 D, ALT 23, Alkaline Phosphatase 100, Total Protein 5.5 L, Albumin 2.7 L, Globulin 2.8, Albumin/Globulin Ratio 1.0 L I & O for Labs for Last 24 Hours: Intake & Output 05/04/23 05/05/23 05/06/23 05/07/23 23:59 23:59 23:59 23:59 Intake Total 780 / 780 Output Total 300 / 300 Balance 480 / 480 Weight 54.148 kg 54.204 kg Constitutional: Present no acute distress, thin and chronically ill appearing Head: Present atraumatic ENT: Present normal exam Neck: Present normal inspection Respiratory: Present normal respiratory effort; Absent rhonchi, wheezes or crackles Cardiac: Present Reg Rate and Rhythm GI: Present normal bowel sounds; Absent tenderness Extremities: Present normal inspection and full ROM Skin: Present intact; Absent erythema Neuro: Present Grossly Intact, alert, awake and moves all extremities Comment:: Oriented to self and place Assessment and Plan *Assessment and plan (1) Toxic encephalopathy: Status: Acute Category: Medical Code(s): G92.9 - Unspecified toxic encephalopathy (2) HTN (hypertension): Status: Chronic Qualifiers: Hypertension type: essential hypertension Qualified Code(s): I10 - Essential (primary) hypertension Category: Medical Code(s): I10 - Essential (primary) hypertension (3) Type 2 diabetes mellitus: Status: Chronic Qualifiers: Diabetes mellitus usp insulin use: without long
[2023-05-07 20:00] VITALS: BP 149/74; PULSE 79; RESP 16; TEMP 36.8; O2SAT 93
[2023-05-08 04:00] VITALS: BP 141/70; PULSE 81; RESP 16; TEMP 36.5; O2SAT 96; BMI 17.2
[2023-05-08 07:34] VITALS: O2SAT 97
[2023-05-08 07:34] LABS: Chloride 106 mmol/L (98-107); Potassium 3.2 mmoL/L (3.5-5.1); Sodium 135 mmol/L (136-145)
[2023-05-08 07:36] LABS: Alanine Aminotransferase 20 U/L (12-78); Aspartate Amino Transferase 22 U/L (17-59); Blood Urea Nitrogen 24 mg/dl (9-20); Creatinine Clearance Estimated 46 mL/min (50-200); Estimated Glomerular Filt Rate 60 ml/min (>60); GFR (African American) 73 ML/MIN (>60)
[2023-05-08 07:37] LABS: Albumin Level 2.4 g/dl (3.5-5.0); Alkaline Phosphatase 89 U/L (38-126); Anion Gap 3.2 mEq/L (5-15); Bilirubin,Total 0.6 mg/dl (0.2-1.3); Calcium 7.5 mg/dl (8.4-10.2); Carbon Dioxide 29 mmol/L (22.0-30.0); Globulin 2.5 g/dL (1.3-3.2); Glucose 94 mg/dl (74-100); Magnesium 1.7 mg/dl (1.6-2.3); Total Protein,Serum 4.9 g/dl (6.3-8.2)
[2023-05-08 07:44] LABS: Basophils % 0.2 % (0.1-2.0); Eosinophils # 0.1 K/mm3 (0.0-0.4); Eosinophils % 1.3 % (0.1-12.0); Hematocrit 31.8 % (42.0-52.0); Hemoglobin 10.4 g/dL (14.1-18.0); Lymphocytes # 2.7 K/mm3 (0.7-4.5); Lymphocytes % 33.2 % (10-50); Mean Corpuscular HGB Conc 32.6 g/dL (31.8-35.4); Mean Corpuscular Hemoglobin 32.7 pg (27.0-31.2); Mean Corpuscular Volume 100.3 fl (80-94); Mean Platelet Volume 7.8 fl (7.4-10.4); Monocytes # 0.5 K/mm3 (0.1-1.0); Monocytes % 6.3 % (1.7-9.3); Neutrophils # 4.9 K/mm3 (1.8-7.8); Neutrophils % 59.1 % (37.0-80.0); Platelet Count 254 K/mm3 (142-424); Red Blood Count 3.17 M/mm3 (4.60-6.20); Red Cell Distribution Width 13.7 % (11.5-17.5); White Blood Count 8.2 K/mm3 (4.8-10.8)
[2023-05-08 08:00] VITALS: BP 133/76; PULSE 93; RESP 18; TEMP 36.4; O2SAT 92
--- NOTE | 2023-05-08 08:17 | EXP.DC.SUM ---
General Admission date:: 05/06/23 Discharge date: 05/08/23 HPI HPI HPI: 67-year-old male with history of alcoholism, diabetes, hypertension, mild cognitive impairment who who [facility]. Since that time he has had progressive decline in his cognition and alertness more acute over the past 3 to 4 days per his daughter who provides history at bedside. She states he has been more fatigued. Having increased muscle fasciculations and spontaneous movement. She is concerned for his increased confusion as he does not recognize her regularly. This is gotten worse over the past few days. A week ago he was diagnosed with shortness of breath and started on antibiotics and steroids. Denies abdominal pain, chest pain, nausea, vomiting, fever or chills. Presented to the ER for further evaluation. On evaluation, patient has mild leukocytosis of 12,000. Is stable on 2 L nasal cannula oxygen. Aside from confusion, spontaneous muscle movement concerning for akathisia, and hypertension, he is otherwise stable. Extensive discussion with patient and family. Discussed potential for [facility]. Strong concern from family about patient's current condition. Medicine consulted for admission and further management of encephalopathy and hypertension. Medicine agreed to admit. On my evaluation, patient has movements consistent with akathisia. He is oriented to self only. Review of medication shows concern for polypharmacy and possible medication side effects. Afebrile. Blood pressure persistently elevated. Hospital Course Hospital Course Hospital Course: 67-year-old male with multiple comorbidities who presents with increased confusion and akathisia. Extensive discussion with the ER about admission. Request admission for adjustment of medications, treatment of hypertension, further management of polypharmacy. Medicine agreed to admit for medication adjustments and medical optimization. Patient has done well with adjustments to his medications. He is meeting discharge criteria at this time. Recommend close [facility]-up with [facility] for further adjustment of meds. Problems addressed as follows during admission: Toxic encephalopathy Akathesia - suspect secondary to polypharmacy. Medications include BuSpar, Vivitrol, Seroquel, pregabalin. Medication adjustments over the past month preceding change in patient's mentation and onset of muscle twitches. BuSpar was discontinued. Seroquel was decreased to 100 mg nightly. Patient is on 25 mg Lyrica twice daily for his neuropathy and tolerating this well. Recommend discontinuing naltrexone/Vivitrol while he is institutionalized. Overall showing improvement. Patient alert and oriented to self and place only. Twitches/akathisia have decreased in frequency. Tolerating p.o. intake. Stable for [facility] back to [facility]. -Concerned that some of his confusion is related to his history of alcoholism and mild cognitive impairment. Hypertensive urgency -Blood pressure elevated on initial evaluation. Adjustments to medications to irbesartan and increasing carvedilol. Goal blood pressure less than 140/90. Patient has had improvement in blood pressure and overall doing well. Continue irbesartan 100 and ems daily and and current all 25 mg twice daily. Continue lipase/protease/amylase for pancreatic insufficiency Continue pantoprazole for GERD Holding on further steroids, suspect there component in patient's leukocytosis of 12,000. DuoNebs as needed every 6 hours for COPD. Continue supplemental oxygen with goal saturation greater 90%. Recommend repeat labs with CBC, CMP, magnesium in 1 week. Spent 30 minutes in discharge counseling, documentation, chart review, consultation with case management, and direct care with patient. Exam Data for Last 24 hours Vital signs and Labs for Last 24 Hours: Temp Pulse Resp BP Pulse Ox O2
--- NOTE | 2023-05-08 08:45 | PC.NURSE ---
pt. removed iv and refused to have another placed. I explained the reason for the iv.
--- NOTE | 2023-05-08 12:25 | PC.NURSE ---
Noah Rivero JR 1955 Current Medications Lipase/Protease/Amylase (Lipase/Protease/Amylase 1 Each Capsule.Dr) 1 each PO BIDWMEAL MAJOR Stop: 06/06/23 17:29 Last Admin: 05/08/23 08:46 Dose: 1 each Carvedilol (Carvedilol 25mg Tablet) 25 mg PO BID MAJOR Stop: 06/05/23 20:59 Last Admin: 05/08/23 08:46 Dose: 25 mg Fluticasone/Umeclidinium/Vilanterol (Fluticasone/Umeclidin/Vilanter 200/62.5/25mcg Inhaler) 1 puff IH DAILY MAJOR Stop: 06/06/23 08:59 Last Admin: 05/08/23 06:30 Dose: 1 puff Irbesartan (Irbesartan 150mg Tab) 150 mg PO DAILY MAJOR Stop: 06/06/23 08:59 Last Admin: 05/08/23 08:46 Dose: 150 mg Magnesium Oxide (Magnesium Oxide 400mg Tablet) 400 mg PO BID MAJOR Stop: 06/06/23 08:59 Last Admin: 05/08/23 08:46 Dose: 400 mg Pantoprazole Sodium (Pantoprazole 40mg Tablet) 40 mg PO HS MAJOR Stop: 06/05/23 20:59 Last Admin: 05/07/23 21:26 Dose: 40 mg Pregabalin (Pregabalin 25mg Capsule) 25 mg PO BID MAJOR Stop: 06/05/23 20:59 Last Admin: 05/08/23 08:46 Dose: 25 mg Quetiapine Fumarate (Quetiapine 100mg Tablet) 100 mg PO HS MAJOR Stop: 06/05/23 20:59 Last Admin: 05/07/23 21:26 Dose: 100 mg Sitagliptin Phosphate (Sitagliptin 50mg Tablet) 50 mg PO DAILYDM MAJOR Stop: 06/06/23 08:59 Last Admin: 05/08/23 07:01 Dose: 50 mg
[2023-05-08 16:00] VITALS: BP 118/68; PULSE 77; RESP 18; TEMP 36.8; O2SAT 98
--- NOTE | 2023-05-08 17:42 | PC.NURSE ---
Report calld to [facility].
== END 2023-05-08 17:48 ==
LOC: ER 15:41 → 2ND 18:08
PROVIDERS: Admitting Provider Internal Medicine Adolescent Medicine; Emergency Provider Emergency Medicine; PCP Internal Medicine Adolescent Medicine; Visit Provider Internal Medicine Adolescent Medicine
DX: G92.8 Other toxic encephalopathy (principal); T43.595A Adverse effect of other antipsychotics and neuroleptics, initial encounter; I12.9 Hypertensive chronic kidney disease with stage 1 through stage 4 chronic kidney disease, or unspecified chronic kidney disease; E11.42 Type 2 diabetes mellitus with diabetic polyneuropathy; G62.9 Polyneuropathy, unspecified; F17.210 Nicotine dependence, cigarettes, uncomplicated; J44.9 Chronic obstructive pulmonary disease, unspecified; Z86.16 Personal history of COVID-19; Z79.899 Other long term (current) drug therapy; N18.9 Chronic kidney disease, unspecified; E11.22 Type 2 diabetes mellitus with diabetic chronic kidney disease; F10.11 Alcohol abuse, in remission; R06.02 Shortness of breath
CPT/HCPCS: 36415; 70450; 71045; 76705; 80053; 81001; 82803; 83605; 83690; 83735; 84484; 85025; 87081; 87636; 93005; 94640; 97116; 97162; 97165; 97530; 99285; G0378

== ENCOUNTER 2023-07-01 14:31 | Observation (INO) | payer MEDICARE, OTHER, SELFPAY ==
[2023-07-01] VITALS (10 sets, daily range): BP systolic 75–121; BP diastolic 54–79; PULSE 85–103; RESP 16–20; TEMP 36.3–36.8; O2SAT 93–96; BMI 18.7; BMI 19.1
--- NOTE | 2023-07-01 14:27 | XR_ITS ---
FINAL REPORT CLINICAL HISTORY: multiple frequent falls, pain FINDINGS: Left femur TWO VIEW FINDINGS: Two views show no evidence of an acute, displaced fracture or dislocation of the visualized bony architecture. The joint spaces appear normal. IMPRESSION: Unremarkable exam. Authenticated and [facility]
--- NOTE | 2023-07-01 14:27 | CT_ITS ---
FINAL REPORT TECHNIQUE: Axial images were obtained of the cervical spine by computed tomography. Coronal and sagittal reconstruction process performed. This study was performed with techniques to keep radiation doses as low as reasonably achievable (ALARA). Individualized dose reduction techniques using automated exposure control or adjustment of mA and/or kV according to the patient''s size were employed. CLINICAL HISTORY: age >65, multiple frequent falls, intract. nausea COMPARISON: 03/26/2023 FINDINGS: There is no acute fracture. There is no subluxation. There is severe facet arthropathy in the upper and mid cervical spine. There is advanced degenerative disc change at C6-7. IMPRESSION: No acute fracture. Degenerative disc disease as above. Reviewed, Interpreted and Dictated by Ricardo Landis MD Transcribed by Loan Askew Authenticated and [facility]
--- NOTE | 2023-07-01 14:27 | XR_ITS ---
FINAL REPORT CLINICAL HISTORY: multiple frequent falls, pain FINDINGS: Left knee THREE VIEW FINDINGS: Three views show no evidence of an acute, displaced fracture or dislocation of the visualized bony architecture. Mild degenerative joint disease is present. IMPRESSION: Degenerative changes. No acute bony abnormality . Authenticated and ERN
--- NOTE | 2023-07-01 14:27 | CT_ITS ---
FINAL REPORT TECHNIQUE: Axial images through the abdomen and pelvis was performed by computed tomography. This study was performed with techniques to keep radiation doses as low as reasonably achievable (ALARA). Individualized dose reduction techniques using automated exposure control or adjustment of mA and/or kV according to the patient's size were employed. CLINICAL HISTORY: age >65, multiple frequent falls, intract. nausea FINDINGS: Abdomen: Liver, spleen, and adrenal glands have a normal CT appearance in their limited unenhanced state. There are extensive pancreatic calcifications, likely sequela of previous pancreatitis. The kidneys show no stone disease or obstruction. No obvious renal mass is present. No ureteral stones are present. Pelvis: There is no free air or fecal impaction. Pelvic bowel loops are unremarkable. The patient is status post prostatectomy. No distal ureteral stones are seen. Bladder is unremarkable. No fluid collection or adenopathy is seen. IMPRESSION: No gross acute abnormality. Noncontrast exam less sensitive for solid organ injury. Reviewed, Interpreted and Dictated by Ricardo Landis MD Transcribed by Loan Askew Authenticated and [facility]
--- NOTE | 2023-07-01 14:27 | CT_ITS ---
FINAL REPORT CLINICAL HISTORY: age >65, multiple frequent falls, intract. nausea, pain FINDINGS: Chronic lacunar infarcts are seen right basal ganglia and left thalamus. Moderate atrophy and chronic ischemic white matter changes are noted. No cortical edema is present. There is no mass or hemorrhage. Ventricles are normal. Bone windows show no skull fracture or obvious obstructive lesion. IMPRESSION: 1. No acute intracranial abnormality or obvious mass. 2. Atrophy and chronic ischemic white matter changes as above. Authenticated and ERN
--- NOTE | 2023-07-01 14:27 | CT_ITS ---
FINAL REPORT TECHNIQUE: Axial images through the pelvis were performed by computed tomography. This study was performed with techniques to keep radiation doses as low as reasonably achievable (ALARA). Individualized dose reduction techniques using automated exposure control or adjustment of mA and/or kV according to the patient's size were employed. CLINICAL HISTORY: age >65, multiple frequent falls, intract. nausea FINDINGS: No fracture is identified. Mild degenerative changes are seen involving the bilateral hips. The bones are osteopenic. IMPRESSION: No acute fracture. Reviewed, Interpreted and Dictated by Ricardo Landis MD Transcribed by Loan Askew Authenticated and [facility]
--- NOTE | 2023-07-01 14:27 | CT_ITS ---
FINAL REPORT CLINICAL HISTORY: age >65, multiple frequent falls, intract. nausea, mid back pain FINDINGS: CT THORACIC SPINE TECHNIQUE: Thin section axial CT with sagittal and coronal reconstructions FINDINGS: Mild age-indeterminate compression fracture seen of T12. Remaining vertebral heights are normal. Mild thoracic kyphosis is present without subluxation. IMPRESSION: Mild age-indeterminate T12 compression fracture Authenticated and [facility]N
--- NOTE | 2023-07-01 14:27 | XR_ITS ---
FINAL REPORT CLINICAL HISTORY: multiple frequent falls, pain FINDINGS: Left hip TWO VIEW FINDINGS: Two views show no evidence of an acute, displaced fracture or dislocation of the visualized bony architecture. The joint spaces appear normal. IMPRESSION: Unremarkable exam. Authenticated and ERN
--- NOTE | 2023-07-01 14:27 | CT_ITS ---
FINAL REPORT TECHNIQUE: Axial images were performed through the lumbar spine by computed tomography. Sagittal reconstruction images were also performed. This study was performed with techniques to keep radiation doses as low as reasonably achievable, (ALARA). Individualized dose reduction techniques using automated exposure control or adjustment of mA and/or kV according to the patient''s size were employed. CLINICAL HISTORY: age >65, multiple frequent falls, intract. nausea FINDINGS: Sagittal reconstruction images demonstrate no subluxation. There is multilevel degenerative disc disease, most pronounced at L5-S1. IMPRESSION: Multilevel degenerative disc disease without acute bony abnormality. Reviewed, Interpreted and Dictated by Ricardo Landis MD Transcribed by Loan Askew Authenticated and [facility]
--- NOTE | 2023-07-01 14:27 | CT_ITS ---
FINAL REPORT TECHNIQUE: Axial CT without IV contrast administration. This study was performed with techniques to keep radiation doses as low as reasonably achievable (ALARA). Individualized dose reduction techniques using automated exposure control or adjustment of mA and/or kV according to the patient's size were employed. CLINICAL HISTORY: age >65, multiple frequent falls, intract. nausea COMPARISON: 02/27/2023 FINDINGS: There are patchy ground-glass opacities in the right lower lobe, probably mild pneumonia. Emphysematous changes are identified. There are irregular densities in the upper lobes with a few scattered nodules, largely unchanged however 1 lesion in the left lower lobe superior segment has improved. This is best seen on image 34. No rib fracture is identified. There is no pneumothorax. There is no pleural or pericardial effusion. No adenopathy is identified. IMPRESSION: No acute findings. Scattered nodules and pulmonary lesions as above. Recommend continued CT surveillance. Reviewed, Interpreted and Dictated by Ricardo Landis MD Transcribed by Loan Askew Authenticated and [facility]
--- NOTE | 2023-07-01 14:35 | HMH.EDGENADL ---
Discharge Plan Disposition Patient Disposition: Admitted Condition: Fair Prescriptions Prescriptions: No Action thiamine HCl (vitamin B1) 100 mg tablet 100 mg PO DAILY Patient Comments: TAKE ONE TABLET BY MOUTH EVERY DAY simvastatin 40 mg tablet 40 mg PO HS Patient Comments: TAKE ONE TABLET BY MOUTH EVERY DAY AT BEDTIME magnesium oxide 400 mg (241.3 mg magnesium) tablet 400 mg PO BID Patient Comments: TAKE ONE TABLET BY MOUTH TWICE DAILY omeprazole 20 mg capsule,delayed release(DR/EC) 20 mg PO DAILY Patient Comments: TAKE ONE CAPSULE BY MOUTH EVERY DAY albuterol sulfate [Ventolin HFA] 90 mcg/actuation HFA aerosol inhaler 2 inh INHALATION Q6HP PRN (Reason: Shortness Of Breath Or Wheezing) Patient Comments: INHALE TWO PUFFS BY MOUTH EVERY 6 HOURS NEEDED --SHAKE WELL BEFORE USE-- levocetirizine 5 mg tablet 5 mg PO HS Patient Comments: TAKE ONE TABLET BY MOUTH EVERY DAY IN THE EVENING Zenpep 10,000-32,000 -42,000 unit capsule,delayed release(DR/EC) 1 cap PO BIDWMEAL Patient Comments: TAKE ONE CAPSULE BY MOUTH THREE TIMES DAILY Trelegy Ellipta 200-62.5-25 mcg blister with device 1 inh INHALATION DAILY Patient Comments: INHALE 1 PUFF BY MOUTH DAILY DIRECTED ondansetron HCl 4 mg Tablet 4 mg PO Q6HP PRN (Reason: nausea or vomiting) Tradjenta 5 mg Tablet 5 mg PO DAILY carvedilol 25 mg Tablet 25 mg PO BID 30 Days Qty: 60 0RF quetiapine 100 mg Tablet 100 mg PO HS 30 Days Qty: 30 0RF irbesartan 150 mg Tablet 150 mg PO DAILY 30 Days Qty: 30 0RF pregabalin [Lyrica] 25 mg Capsule 25 mg PO BID 30 Days Qty: 60 0RF Clinical Impressions Clinical Impression: NAPOLEON (acute kidney injury), Acute hyperkalemia, Acute pain of left hip, Fall, Adult failure to thrive Discharge ED Provider: Allan Gorman General Adult HPI <Chanda Blood, - Last Filed: 07/01/23 14:53> General Chief complaint: Fall Stated complaint: Fall Time Seen by Provider: 07/01/23 14:32 Mode of Arrival: Ambulatory Source of Information: Patient and EMS Limitations: No Limitations Description of Symptoms (Recalled from ER Triage Doc. by RN): Patient reports frequent falls since being discharged from the custodial. States that he was supposed to have home health to visit and check on him but he discharged them. Patient presents after falling this morning with complaint of left hip pain. Patient states he has not been eating or drinking well either. History of Present Illness HPI narrative: This patient is a 67-year-old male with a history of hypertension, type 2 diabetes, CKD, frequent falls, COPD, colon cancer, prior history of alcohol abuse, and extensive smoking history presenting to the emergency department for evaluation with concern for frequent falls. Patient was admitted to the hospital in May for altered mental status and was subsequently discharged to nursing facility for rehabilitation. Patient left the nursing facility 06/16/2023 and refused home health care. Since going home, he has not been able to eat or drink very much at all and has not been able to get around very well. He notes that he had multiple frequent falls, with most recent fall being just prior to arrival. This is what prompted him to call EMS. With this fall, he injured his left hip and was not able to get back up. He denies head injury or loss of consciousness. No fevers, chills, cough, abdominal pain, changes in bowel movements, or other concerns. He does note that he has not been able to eat or drink very much and has been very nauseated, and he also has been feeling short of air and having chest pain. Related Data Home Medications Medication Instructions Recorded Confirmed albuterol sulfate 90 mcg/actuation 2 inh inhalation Q6HP PRN 05/06/23 05/07/23 aerosol inhaler (Ventolin HFA) Shortness Of Breath Or Wheezing fluticasone fur. 200 mcg-umeclid 1 inh inhalation DAILY shortness 05/06/23 05/07/23 62.5 mcg-vilant 25 mcg of breath inhalat.powder (Trelegy Ellipta) levocetirizine 5 mg tablet 5 mg PO HS allergies 05/06/23 05/07/23 ruaecj-uzoqqskt-kltiyho 1 cap PO BIDWMEAL 05/06/23 05/07/23 10,000-32,000-42,000 unit capsule,delayed rel (Zenpep) magnesium oxide 400 mg (241.3 mg 400 mg PO BID Supplement 05/06/23 05/07/23 magnesium) tablet omeprazole 20 mg capsule,delayed 20 mg PO DAILY Acid Reflux 05/06/23 05/07/23 release simvastatin 40 mg tablet 40 mg PO HS High Cholesterol 05/06/23 05/07/23 thiamine HCl (vitamin B1) 100 mg 100 mg PO DAILY Supplement 05/06/23 05/07/23 tablet linagliptin 5 mg tablet (Tradjenta) 5 mg PO DAILY Diabetes 05/07/23 05/07/23 ondansetron HCl 4 mg tablet 4 mg PO Q6HP PRN nausea or vomiting 05/07/23 05/07/23 Previous Rx's Medication Instructions Recorded carvedilol 25 mg tablet 25 mg PO BID 30 days #60 tabs 05/08/23 irbesartan 150 mg tablet 150 mg PO DAILY 30 days #30 tabs 05/08/23 pregabalin 25 mg capsule (Lyrica) 25 mg PO BID 30 days #60 caps 05/08/23 quetiapine 100 mg tablet 100 mg PO HS 30 days #30 tabs 05/08/23 Allergies Allergy/AdvReac Type Severity Reaction Status Date / Time No Known Allergies Allergy Verified 03/31/23 14:38 [facility] <Chanda Blood DO - Last Filed: 07/01/23 14:53> [facility] Disclaimer: The information contained in this section may have been updated after the patient was seen, as this information can be updated by other users. Medical History Abnormal computerized axial tomography of chest Acute alcoholic pancreatitis Acute pancreatitis Acute renal failure NAPOLEON (acute kidney injury) Alcohol abuse Alcohol withdrawal Alcoholic pancreatitis Alcoholism Anxiety Arthritis Asthma Cavitary lesion of lung Chronic alcohol abuse Chronic pancreatitis Chronic pancreatitis due to chronic alcoholism Colon cancer COPD (chronic obstructive pulmonary disease) COPD mixed type COVID COVID Depression Diabetes mellitus, type 2 Dyspnea on exertion History of gastroesophageal reflux (GERD) Hx of malignant neoplasm of colon Hyperlipidemia Hypertension Hypomagnesemia Hyponatremia Hyponatremia Illiteracy Irritable bowel syndrome (IBS) Lung abscess Neuropathy Pneumonia Pneumonia Polysubstance abuse Prostate cancer Protein-calorie malnutrition, mild Protein-calorie malnutrition, moderate Pulmonary emphysema Smoking greater than 30 pack years Tobacco abuse Tobacco use disorder Transaminitis Surgical History History of colon resection History of colonoscopy Hx of prostatectomy S/P TURP Family History Mother Family history of diabetes mellitus type II Social History Smoking Status: Current every day smoker tobacco type: cigarettes packs per day: 1 years smoked: 54 quit status: has quit before second hand exposure: Yes alcohol intake: current counseling provided: provider counseling substance use type: marijuana current occupational status: disabled Travel in the last 8 weeks: None household members: none housing: apartment lives independently: Yes (home health comes twice a week ) marital status: current occupational exposures/hazards: No caffeine: Yes (coffee) physical activity: none do you feel safe at home: Yes <Chanda Blood DO - Last Filed: 07/01/23 14:53> ROS Obtained: Yes All systems reviewed & no additional complaints except as documented Physical Exam <Chanda Blood DO - Last Filed: 07/01/23 14:53> General General appearance: alert and in no apparent distress Comment: chronically ill appearing Head Head exam: atraumatic and normocephalic Eye Eye exam: Present normal appearance, PERRL and EOMI ENT ENT exam: Present normal oropharynx, mucous membranes dry and normal external ear exam Neck Neck exam: Present normal inspection, full ROM and trachea midline; Absent tenderness Chest Chest inspection: Present normal inspection and symmetric chest wall rise; Absent tenderness Respiratory Respiratory exam: Present normal lung sounds bilaterally; Absent respiratory distress, wheezes, stridor or accessory muscle use Cardiovascular Cardiovascular exam: Present regular rate and normal rhythm Abdominal Exam Abdominal exam: Present soft, tenderness (Generalized) and normal bowel sounds; Absent distention, guarding, rebound or rigidity Extremities Exam Extremities exam: Present full ROM, tenderness (left hip. All compartments soft. Neurovascularly intact distally.) and normal capillary refill; Absent edema Back Exam Back exam: Present normal inspection and full ROM; Absent tenderness Neurological Exam Neurological exam: Present alert, oriented X3, CN II-XII intact and normal gait; Absent motor sensory deficit Psychiatric Psychiatric exam: Present normal affect and normal mood Skin Skin exam: Present warm, dry and pallor Medical Decision Making <Chanda Blood DO - Last Filed: 07/01/23 14:53> Medical Records Medical records reviewed: Yes I reviewed the patient's medical records. Steven Inquiry Pt receiving controlled substance: No Vital Signs: 07/01/23 14:31 07/01/23 15:30 07/01/23 16:00 Temperature 97.9 F Temperature Source Oral Pulse Rate 98 H 90 Pulse Rate [Radial] 103 H Respiratory Rate 16 20 18 Blood Pressure 102/68 L 100/64 L Blood Pressure [Left Arm] 75/54 L Blood Pressure Mean 79 75 Blood Pressure Mean [Left Arm] 61 Blood Pressure Source [Left Arm] Automatic Cuff Blood Pressure Position [Left Arm] Sitting 02 Sat by Pulse Oximetry 94 L 95 94 L Oxygen Delivery Method Room Air 07/01/23 16:30 Temperature Temperature Source Pulse Rate 85 Pulse Rate [Radial] Respiratory Rate 18 Blood Pressure 109/70 L Blood Pressure [Left Arm] Blood Pressure Mean 80 Blood Pressure Mean [Left Arm] Blood Pressure Source [Left Arm] Blood Pressure Position [Left Arm] 02 Sat by Pulse Oximetry 96 Oxygen Delivery Method Lab Data Lab results reviewed: Yes I reviewed the patient's lab results. Lab Results 07/01/23 14:20: WBC 9.5, RBC 3.90 L, Hgb 13.3 L, Hct 36.4 L, MCV 93.4, MCH 34.2 H, MCHC 36.7 H, RDW 13.9, Plt Count 258, MPV 8.3, Neut % (Auto) 55.9, Lymph % (Auto) 34.7, [place] % (Auto) 6.4, Eos % (Auto) 2.1, Baso % (Auto) 0.9, Neut # (Auto) 5.3, Lymph # (Auto) 3.3, [place] # (Auto) 0.6, Eos # (Auto) 0.2, Baso # (Auto) 0.1, PT 10.9, INR 1.01, APTT 26.6, Sodium 137, Potassium 5.4 H, Chloride 104, Carbon Dioxide 29, Anion Gap 9.4, BUN 45 H, Creatinine 2.60 H, Estimated Creat Clear 22, Estimated GFR 25 L, Est GFR ( Amer) 30 L, Glucose 145 H, Calcium 8.6, Total Bilirubin 0.3, AST 32, ALT 22, Alkaline Phosphatase 140 H, Total Creatine Kinase 28 L, Troponin I < 0.01, Total Protein 6.4 D, Albumin 2.7 L, Globulin 3.7 H, Albumin/Globulin Ratio 0.7 L, Lipase 11 L, TSH 1.50, Thyroxine (T4) 3.1 L 07/01/23 14:40: Lactate 2.1 07/01/23 14:20 07/01/23 14:20 Orders (Tests/Meds): ED MEDICATIONS Discontinued Medications Generic Name Dose Route Start Last Admin Trade Name Robertq PRN Reason Stop Dose Admin Lactated Ringer's 1,000 mls @ 999 mls/hr 07/01/23 14:34 07/01/23 14:45 Lactated Ringer's 1000 Ml Bag IV 07/01/23 15:34 999 mls/hr .Q1H1M ONE Administration Lactated Ringer's 1,000 mls @ 999 mls/hr 07/01/23 14:53 Lactated Ringer's 1000 Ml Bag IV 07/01/23 15:53 .Q1H1M ONE ORDERS Category Date Time Status CT abdomen pelvis wo con Stat Cat Scan 07/01/23 14:[address] bony pelvis Stat Cat Scan 07/01/23 14:[address] cervical spine wo con Stat Cat Scan 07/01/23 14:[address] chest wo con Stat Cat Scan 07/01/23 14:[address] head/brain wo con Stat Cat Scan 07/01/23 14:[address] lumbar spine wo con Stat Cat Scan 07/01/23 14:[address] thoracic spine wo con Stat Cat Scan 07/01/23 14:27 Completed XR femur LT 2V Stat Exams 07/01/23 14:27 Completed XR hip LT 2-3V w/pelvis Stat Exams 07/01/23 14:27 Completed XR knee LT 3V Stat Exams 07/01/23 14:27 Completed Activated Partial Thrombo Time Stat Lab 07/01/23 14:20 Completed Complete Blood Count Auto Diff Stat Lab 07/01/23 14:20 Completed Comprehensive Metabolic Panel Stat Lab 07/01/23 14:20 Completed Creatine Kinase Stat Lab 07/01/23 14:20 Completed Lactic Acid Stat Lab 07/01/23 14:40 Completed Lipase Stat Lab 07/01/23 14:20 Completed Prothrombin Time INR Stat Lab 07/01/23 14:20 Completed T4 (Thyroxine) Stat Lab 07/01/23 14:20 Completed Thyroid Stimulating Hormone Stat Lab 07/01/23 14:20 Completed Troponin I Q3H Lab 07/01/23 17:30 Ordered Troponin I Q3H Lab 07/01/23 20:30 Ordered Troponin I Stat Lab 07/01/23 14:20 Completed Urinalysis and Microscopic Stat Lab 07/01/23 14:27 Ordered ECG initial Besson Routine Y 07/01/23 14:49 Completed ECG Data Tracing #1: I reviewed this ECG and interpreted as documented below: Sinus tachycardia with first-degree AV block. Ventricular rate is [address] changes concerning for ischemia. Normal axis and intervals. ECG initial impression date: 07/01/23 ECG initial impression time: 14:51 Medical Decision Narrative: In summary, this patient is a 67-year-old male presenting to the Emergency Department for evaluation of frequent falls with injury to his left hip in the setting of poor oral intake, general weakness, nausea, chest pain, and shortness of breath. Differential diagnoses considered include but are not limited to ACS, dysrhythmia, dehydration, intra-abdominal infection, urinary tract infection, hip fracture, contusion, strain/sprain, polytrauma, failure to thrive. Ruling out the most morbid conditions drove assessment. It should be noted patient's history includes hypertension, hyperlipidemia, type 2 diabetes, CKD, colon cancer, and COPD which may or may not be at goal therapy. This complicates all aspects of care by increasing patient's risk for morbidity. I reviewed patient's past medical records and noted his admission in May for altered mental status as per HPI. On exam, the patient is chronically ill-appearing with generalized abdominal tenderness. No rebound or guarding. He also has left hip tenderness, but is neurovascularly intact distally. He has soft blood pressures with systolics in the 70s upon arrival. He appears very clinically dry in the setting of poor oral intake. Workup included broad lab evaluation including infectious, metabolic, and cardiac workup as well as CTs from head to pelvis to evaluate for potential source of infection or traumatic injury. He was given a bolus of IV fluids. Labs were obtained that demonstrated significant N[place]OLEON with creatinine up to 2.6 from a baseline around 1. He also has mild hyperkalemia without significant EKG changes. Fluid resuscitation was initiated, as I feel the patient is likely hemoconcentrated and very dry based on clinical exam and the fact he has not been eating and drinking. X-rays and CT scans as well as further lab evaluation are pending. Patient care signed to the oncoming provider, Dr. Gorman.. <Allan Gorman MD - Last Filed: 07/01/23 17:08> Vital Signs: 07/01/23 14:31 07/01/23 15:30 07/01/23 16:00 Temperature 97.9 F Temperature Source Oral Pulse Rate 98 H 90 Pulse Rate [Radial] 103 H Respiratory Rate 16 20 18 Blood Pressure 102/68 L 100/64 L Blood Pressure [Left Arm] 75/54 L Blood Pressure Mean 79 75 Blood Pressure Mean [Left Arm] 61 Blood Pressure Source [Left Arm] Automatic Cuff Blood Pressure Position [Left Arm] Sitting 02 Sat by Pulse Oximetry 94 L 95 94 L Oxygen Delivery Method Room Air 07/01/23 16:30 Temperature Temperature Source Pulse Rate 85 Pulse Rate [Radial] Respiratory Rate 18 Blood Pressure 109/70 L Blood Pressure [Left Arm] Blood Pressure Mean 80 Blood Pressure Mean [Left Arm] Blood Pressure Source [Left Arm] Blood Pressure Position [Left Arm] 02 Sat by Pulse Oximetry 96 Oxygen Delivery Method Lab Data Lab Results 07/01/23 14:20: WBC 9.5, RBC 3.90 L, Hgb 13.3 L, Hct 36.4 L, MCV 93.4, MCH 34.2 H, MCHC 36.7 H, RDW 13.9, Plt Count 258, MPV 8.3, Neut % (Auto) 55.9, Lymph % (Auto) 34.7, [place] % (Auto) 6.4, Eos % (Auto) 2.1, Baso % (Auto) 0.9, Neut # (Auto) 5.3, Lymph # (Auto) 3.3, [place] # (Auto) 0.6, Eos # (Auto) 0.2, Baso # (Auto) 0.1, PT 10.9, INR 1.01, APTT 26.6, Sodium 137, Potassium 5.4 H, Chloride 104, Carbon Dioxide 29, Anion Gap 9.4, BUN 45 H, Creatinine 2.60 H, Estimated Creat Clear 22, Estimated GFR 25 L, Est GFR ( Amer) 30 L, Glucose 145 H, Calcium 8.6, Total Bilirubin 0.3, AST 32, ALT 22, Alkaline Phosphatase 140 H, Total Creatine Kinase 28 L, Troponin I < 0.01, Total Protein 6.4 D, Albumin 2.7 L, Globulin 3.7 H, Albumin/Globulin Ratio 0.7 L, Lipase 11 L, TSH 1.50, Thyroxine (T4) 3.1 L 07/01/23 14:40: Lactate 2.1 Orders (Tests/Meds): ED MEDICATIONS Discontinued Medications Generic Name Dose Route Start Last Admin Trade Name Freq PRN Reason Stop Dose Admin Lactated Ringer's 1,000 mls @ 999 mls/hr 07/01/23 14:34 07/01/23 14:45 Lactated Ringer's 1000 Ml Bag IV 07/01/23 15:34 999 mls/hr .Q1H1M ONE Administration Lactated Ringer's 1,000 mls @ 999 mls/hr 07/01/23 14:53 Lactated Ringer's 1000 Ml Bag IV 07/01/23 15:53 .Q1H1M ONE ORDERS Category Date Time Status CT abdomen pelvis wo con Stat Cat Scan 07/01/23 14:[address] bony pelvis Stat Cat Scan 07/01/23 14:[address] cervical spine wo con Stat Cat Scan 07/01/23 14:[address] chest wo con Stat Cat Scan 07/01/23 14:[address] head/brain wo con Stat Cat Scan 07/01/23 14:[address] lumbar spine wo con Stat Cat Scan 07/01/23 14:[address] thoracic spine wo con Stat Cat Scan 07/01/23 14:27 Completed XR femur LT 2V Stat Exams 07/01/23 14:27 Completed XR hip LT 2-3V w/pelvis Stat Exams 07/01/23 14:27 Completed XR knee LT 3V Stat Exams 07/01/23 14:27 Completed Activated Partial Thrombo Time Stat Lab 07/01/23 14:20 Completed Complete Blood Count Auto Diff Stat Lab 07/01/23 14:20 Completed Comprehensive Metabolic Panel Stat Lab 07/01/23 14:20 Completed Creatine Kinase Stat Lab 07/01/23 14:20 Completed Lactic Acid Stat Lab 07/01/23 14:40 Completed Lipase Stat Lab 07/01/23 14:20 Completed Prothrombin Time INR Stat Lab 07/01/23 14:20 Completed T4 (Thyroxine) Stat Lab 07/01/23 14:20 Completed Thyroid Stimulating Hormone Stat Lab 07/01/23 14:20 Completed Troponin I Q3H Lab 07/01/23 17:30 Ordered Troponin I Q3H Lab 07/01/23 20:30 Ordered Troponin I Stat Lab 07/01/23 14:20 Completed Urinalysis and Microscopic Stat Lab 07/01/23 14:27 Ordered ECG initial Besson Routine Y 07/01/23 14:49 Completed Medical Decision Narrative: In summary, this patient is a 67-year-old male presenting to the Emergency Department for evaluation of frequent falls with injury to his left hip in the setting of poor oral intake, general weakness, nausea, chest pain, and shortness of breath. Differential diagnoses considered include but are not limited to ACS, dysrhythmia, dehydration, intra-abdominal infection, urinary tract infection, hip fracture, contusion, strain/sprain, polytrauma, failure to thrive. Ruling out the most morbid conditions drove assessment. It should be noted patient's history includes hypertension, hyperlipidemia, type 2 diabetes, CKD, colon cancer, and COPD which may or may not be at goal therapy. This complicates all aspects of care by increasing patient's risk for morbidity. I reviewed patient's past medical records and noted his admission in May for altered mental status as per HPI. On exam, the patient is chronically ill-appearing with generalized abdominal tenderness. No rebound or guarding. He also has left hip tenderness, but is neurovascularly intact distally. He has soft blood pressures with systolics in the 70s upon arrival. He appears very clinically dry in the setting of poor oral intake. Workup included broad lab evaluation including infectious, metabolic, and cardiac workup as well as CTs from head to pelvis to evaluate for potential source of infection or traumatic injury. He was given a bolus of IV fluids. Labs were obtained that demonstrated significant [place] with creatinine up to 2.6 from a baseline around 1. He also has mild hyperkalemia without significant EKG changes. Fluid resuscitation was initiated, as I feel the patient is likely hemoconcentrated and very dry based on clinical exam and the fact he has not been eating and drinking. X-rays and CT scans as well as further lab evaluation are pending. Patient care signed to the oncoming provider, Dr. Gorman. Vita: I assume primary responsibility for this patient after signout from previous physician. Independently interpreted. Nonactionable CBC, but chemistry concerning for mild hyperkalemia, N[place]OLEON with creatinine 2.6 up from normal baseline. Patient was given 2 L fluids for this. EKG with sinus tachycardia [address] or T wave changes concerning for acute ischemia. Normal axis, first-degree AV block, right QRS and QT intervals within normal limits. On reevaluation, patient still dehydrated. Conversation was had with patient and family, patient too weak to go home. I agree with this evaluation. I called the hospitalist here [facility], patient to be admitted for failure to thrive and placement at custodial again. Because patient high risk for clinical decompensation, deemed appropriate for inpatient admission. Results were relayed to patient and family who voiced understanding and patient was agreeable to inpatient admission and management. Patient was admitted to the hospital for further definitive management. Critical Care <Chanda Blood, DO - Last Filed: 07/01/23 14:53> Critical Care Time Critical Care Time: No
[2023-07-01 14:40] LABS: Basophils # 0.1 K/mm3 (0-0.2); Basophils % 0.9 % (0.1-2.0); Eosinophils # 0.2 K/mm3 (0.0-0.4); Eosinophils % 2.1 % (0.1-12.0); Hematocrit 36.4 % (42.0-52.0); Hemoglobin 13.3 g/dL (14.1-18.0); Lymphocytes # 3.3 K/mm3 (0.7-4.5); Lymphocytes % 34.7 % (10-50); Mean Corpuscular HGB Conc 36.7 g/dL (31.8-35.4); Mean Corpuscular Hemoglobin 34.2 pg (27.0-31.2); Mean Corpuscular Volume 93.4 fl (80-94); Mean Platelet Volume 8.3 fl (7.4-10.4); Monocytes # 0.6 K/mm3 (0.1-1.0); Monocytes % 6.4 % (1.7-9.3); Neutrophils # 5.3 K/mm3 (1.8-7.8); Neutrophils % 55.9 % (37.0-80.0); Platelet Count 258 K/mm3 (142-424); Red Cell Distribution Width 13.9 % (11.5-17.5); White Blood Count 9.5 K/mm3 (4.8-10.8)
[2023-07-01 14:44] LABS: Chloride 104 mmol/L (98-107); Potassium 5.4 mmoL/L (3.5-5.1); Sodium 137 mmol/L (136-145)
[2023-07-01] MEDS: LACTATED RINGERS 1000ML 1,000 ML 999 ML IV ×2 (14:45→18:51)
[2023-07-01 14:46] LABS: Activated Partial Thrombo Time 26.6 seconds (22.8-30.6); Blood Urea Nitrogen 45 mg/dl (9-20); Creatinine Clearance Estimated 22 mL/min (50-200); Estimated Glomerular Filt Rate 25 ml/min (>60); GFR (African American) 30 ML/MIN (>60); INR 1.01 (0.9-1.1); Prothrombin Time 10.9 seconds (10.1-12.5)
[2023-07-01 14:47] LABS: Alanine Aminotransferase 22 U/L (12-78); Albumin Level 2.7 g/dl (3.5-5.0); Albumin/Globulin Ratio 0.7 (1.1-1.8); Alkaline Phosphatase 140 U/L (38-126); Anion Gap 9.4 mEq/L (5-15); Aspartate Amino Transferase 32 U/L (17-59); Bilirubin,Total 0.3 mg/dl (0.2-1.3); Calcium 8.6 mg/dl (8.4-10.2); Carbon Dioxide 29 mmol/L (22.0-30.0); Creatine Kinase 28 U/L (55-170); Globulin 3.7 g/dL (1.3-3.2); Glucose 145 mg/dl (74-100); Total Protein,Serum 6.4 g/dl (6.3-8.2)
--- NOTE | 2023-07-01 14:49 | ECG_ITS ---
APPROVED REPORT Exam: Resting ECG HR:100 bpm ECG Measurements Heart Rate 100 AXES MS 232 P 83 QRSd 75 QRS 81 QT 301 T 86 QTc 358 Conclusion SINUS TACHYCARDIA WITH FIRST DEGREE AV BLOCK SEPTAL MYOCARDIAL INFARCTION , OF INDETERMINATE AGE [40+ ms Q WAVE IN V1/V2] ABNORMAL ECG UNCONFIRMED REPORT Electronically signed by : Shankar Raya MD 07/01/2023 22:38:11
[2023-07-01 14:51] LABS: Lipase 11 U/L (23-300)
[2023-07-01 15:03] LABS: Lactic Acid 2.1 mmol/L (0.7-2.1)
[2023-07-01 15:03] LABS: Troponin I < 0.01 ng/ml (0.00-0.034)
[2023-07-01 15:04] LABS: T4 (Thyroxine) 3.1 ug/dl (5.53-11.0)
--- NOTE | 2023-07-01 15:37 | HMH.ITSTN ---
Due to patient's GFR less than recommended for contrast, verbal order given from MD to change CTA chest/abdomen to CT chest/abdomen without contrast.
--- NOTE | 2023-07-01 16:55 | PC.NURSE ---
DR ARANGO SPEAKING WITH HOSPITALIST
--- NOTE | 2023-07-01 17:01 | PC.NURSE ---
ACCOUNT INSTALLER NOTIFIED OF ADMISSION
--- NOTE | 2023-07-01 18:03 | PC.NURSE ---
REPORT CALLED TO CANDIS CALLE
--- NOTE | 2023-07-01 18:42 | PC.NURSE ---
arrived by w/c from ED
[2023-07-01 18:50] LABS: Reflex Lactic Add Lactic Reflex
[2023-07-01 18:55] LABS: Troponin I < 0.01 ng/ml (0.00-0.034)
--- NOTE | 2023-07-01 18:57 | PC.NURSE ---
Med rec completed using external medication history;
[2023-07-01 19:17] LABS: Lactic Acid Follow Up (RFLX 1) 1.9 mmol/L (0.7-2.1)
[2023-07-01] MEDS: HEPARIN SODIUM 5,000 UNIT/ML VIAL 5000 UNIT SQ (20:04)
--- NOTE | 2023-07-01 20:04 | P.HP_ITS ---
History of Present Illness *Admission Date: 07/01/23 *Reason for visit:: multiples falls. unable to care for himself *History of present illness: This is a 67-year-old male with a PMHx of hypertension, type 2 diabetes, CKD, frequent falls, COPD, colon cancer, prior history of alcohol abuse, and extensive smoking history presenting to the emergency department for evaluation with concern for frequent falls. Patient is a poor historian, most data collected form ED and EMS report. Patient was admitted to the hospital in May for altered mental status and was subsequently discharged to nursing facility for rehabilitation. Discharged from nursing facility 06/16/2023 and refused home health care. Since going home, he has not been able to eat or drink very much at all and has not been able to get around very well. He notes that he had multiple frequent falls, with most recent fall being just prior to arrival. This is what prompted him to call EMS. With this fall, he injured his left hip and was not able to get back up. He denies head injury or loss of consciousness. No fevers, chills, cough, abdominal pain, changes in bowel movements, or other concerns. He does note that he has not been able to eat or drink very much and has been very nauseated, and he also has been feeling short of air and having chest pain. Admitted for management and treatment. [facility] Disclaimer: The information contained in this section may have been updated after the patient was seen, as this information can be updated by other users. Medical History (Updated 07/02/23 @ 00:47 by Jun Martinez APRN) Abnormal computerized axial tomography of chest Acute alcoholic pancreatitis Acute pancreatitis Acute renal failure [place] (acute kidney injury) Alcohol abuse Alcohol withdrawal Alcoholic pancreatitis Alcoholism Anxiety Arthritis Asthma Cavitary lesion of lung Chronic alcohol abuse Chronic pancreatitis Chronic pancreatitis due to chronic alcoholism Colon cancer COPD (chronic obstructive pulmonary disease) COPD mixed type COVID COVID Depression Diabetes mellitus, type 2 Dyspnea on exertion GERD (gastroesophageal reflux disease) History of gastroesophageal reflux (GERD) Hx of malignant neoplasm of colon Hyperlipidemia Hypertension Hypomagnesemia Hyponatremia Hyponatremia Illiteracy Irritable bowel syndrome (IBS) Lung abscess Neuropathy Pneumonia Pneumonia Polysubstance abuse Prostate cancer Protein-calorie malnutrition, mild Protein-calorie malnutrition, moderate Pulmonary emphysema Smoking greater than 30 pack years Tobacco abuse Tobacco use disorder Transaminitis Surgical History History of colon resection History of colonoscopy Hx of prostatectomy S/P TURP Family History Mother Family history of diabetes mellitus type II Social History (Updated 07/01/23 @ 17:39 by Karina Leonard RN) Smoking Status: Current every day smoker tobacco type: cigarettes packs per day: 1 years smoked: 54 quit status: has quit before second hand exposure: Yes alcohol intake: current counseling provided: provider counseling substance use type: marijuana current occupational status: disabled Travel in the last 8 weeks: None household members: none housing: apartment lives independently: Yes (home health comes twice a week ) marital status: current occupational exposures/hazards: No caffeine: Yes (coffee) physical activity: none do you feel safe at home: Yes Review of Systems Review of Systems Review of systems:: pertinent systems reviewed and negative unless documented below Meds Home Medications and Allergies Home Medications Medication Instructions Recorded Confirmed Type albuterol sulfate 90 mcg/actuation 2 inh inhalation Q6HP PRN 05/06/23 07/01/23 History aerosol inhaler (Ventolin HFA) Shortness Of Breath Or Wheezing fluticasone fur. 200 mcg-umeclid 1 inh inhalation DAILY 05/06/23 07/01/23 History 62.5 mcg-vilant 25 mcg inhalat.powder (Trelegy Ellipta) levocetirizine 5 mg tablet 5 mg PO HS 05/06/23 07/01/23 History pzzdbi-almyufen-piiplvh 1 cap PO BIDWMEAL 05/06/23 07/01/23 History 10,000-32,000-42,000 unit capsule,delayed rel (Zenpep) magnesium oxide 400 mg (241.3 mg 400 mg PO BID 05/06/23 07/01/23 History magnesium) tablet omeprazole 20 mg capsule,delayed 20 mg PO DAILY 05/06/23 07/01/23 History release simvastatin 40 mg tablet 40 mg PO HS 05/06/23 07/01/23 History thiamine HCl (vitamin B1) 100 mg 100 mg PO DAILY 05/06/23 07/01/23 History tablet linagliptin 5 mg tablet (Tradjenta) 5 mg PO DAILY Diabetes 05/07/23 07/01/23 History carvedilol 25 mg tablet 25 mg PO BID 30 days #60 tabs 05/08/23 07/01/23 Rx irbesartan 150 mg tablet 150 mg PO DAILY 30 days #30 tabs 05/08/23 07/01/23 Rx multivitamin 1 tab PO DAILY Supplement 07/01/23 07/01/23 History nicotine 14 mg/24 hr daily 14 mg topical DAILY 07/01/23 07/01/23 History transdermal patch pregabalin 50 mg capsule 50 mg PO BID 07/01/23 07/01/23 History quetiapine 100 mg tablet 100 mg PO BID 07/02/23 07/02/23 History New Prescriptions to Start Prescriptions: Allergies Allergy/AdvReac Type Severity Reaction Status Date / Time No Known Allergies Allergy Verified 03/31/23 14:38 Exam Data for Last 24 hours Vital signs and Labs for Last 24 Hours: Temp Pulse Resp BP Pulse Ox O2 Del Method 98.3 F 94 H 18 121/79 94 L Room Air 07/01/23 18:55 07/01/23 18:55 07/01/23 18:55 07/01/23 18:55 07/01/23 18:55 07/01/23 18:55 Laboratory Results - last 24 hr 07/01/23 14:20: WBC 9.5, RBC 3.90 L, Hgb 13.3 L, Hct 36.4 L, MCV 93.4, MCH 34.2 H, MCHC 36.7 H, RDW 13.9, Plt Count 258, MPV 8.3, Neut % (Auto) 55.9, Lymph % (Auto) 34.7, Power % (Auto) 6.4, Eos % (Auto) 2.1, Baso % (Auto) 0.9, Neut # (Auto) 5.3, Lymph # (Auto) 3.3, Power # (Auto) 0.6, Eos # (Auto) 0.2, Baso # (Auto) 0.1, PT 10.9, INR 1.01, APTT 26.6, Sodium 137, Potassium 5.4 H, Chloride 104, Carbon Dioxide 29, Anion Gap 9.4, BUN 45 H, Creatinine 2.60 H, Estimated Creat Clear 22, Estimated GFR 25 L, Est GFR ( Amer) 30 L, Glucose 145 H, Calcium 8.6, Total Bilirubin 0.3, AST 32, ALT 22, Alkaline Phosphatase 140 H, Total Creatine Kinase 28 L, Troponin I < 0.01, Total Protein 6.4 D, Albumin 2.7 L, Globulin 3.7 H, Albumin/Globulin Ratio 0.7 L, Lipase 11 L, TSH 1.50, Thyroxine (T4) 3.1 L 07/01/23 14:40: Lactate 2.1 07/01/23 17:41: Troponin I < 0.01 07/01/23 19:00: Lactate 1.9 I & O for Last 24 hours: Intake & Output 06/28/23 06/29/23 06/30/23 07/01/23 23:59 23:59 23:59 23:59 Weight 56.897 kg Constitutional Constitutional: no acute distress, thin, chronically ill appearing and cooperative *Routine HEENT Exam Head: Present normocephalic Eye: Present EOMI and PERRL ENT: Present mucous membranes moist *Routine Neck Exam Neck: Present supple; Absent lymphadenopathy *Routine Respiratory Exam Respiratory: Present CTA bilaterally *Routine Cardiovascular Exam Cardiovascular: Present RRR *Routine Abdominal Exam Abdominal: Present soft and normoactive bowel sounds; Absent tenderness *Routine Rectal Exam Rectal:: deferred *Routine Genitalia Exam Genitalia:: deferred *Routine Extremities Exam Extremities: Absent cyanosis, clubbing or edema *Routine Skin Exam Skin: Present warm; Absent rash *Routine Neurological Exam Neurological: Present alert, altered mental status and moving all extremities Comments: Akathisia; hyperreflexia in patellar tendons H&P: Result Imaging and Cardiology EKG: Status: image reviewed by me and Preliminary report Assessment and Plan *Assessment and plan (1) Uzlyv-jj-zasewan kidney injury: Status: Acute Qualifiers: Acute renal failure type: unspecified Chronic kidney disease stage: stage 3 (moderate) Chronic kidney disease stage 3 subtype: stage 3a (GFR 45-59) Qualified Code(s): N17.9 - Acute kidney failure, unspecified; N18.31 - Chronic kidney disease, stage 3a Category: Medical Code(s): N17.9 - Acute kidney failure, unspecified; N18.9 - Chronic kidney disease, unspecified (2) T12 compression fracture: Status: Acute Qualifiers: Encounter type: initial encounter Qualified Code(s): S22.080A - Wedge compression fracture of T11-T12 vertebra, initial encounter for closed fracture Category: Medical Code(s): S22.080A - Wedge compression fracture of T11-T12 vertebra, initial encounter for closed fracture (3) Frequent falls: Status: Acute Category: Medical Code(s): R29.6 - Repeated falls (4) HTN (hypertension): Status: Chronic Qualifiers: Hypertension type: essential hypertension Qualified Code(s): I10 - Essential (primary) hypertension Category: Medical Code(s): I10 - Essential (primary) hypertension (5) COPD (chronic obstructive pulmonary disease): Status: Chronic Qualifiers: COPD type: unspecified COPD Qualified Code(s): J44.9 - Chronic obstructive pulmonary disease, unspecified Category: Medical Code(s): J44.9 - Chronic obstructive pulmonary disease, unspecified (6) Type 2 diabetes mellitus: Status: Chronic Qualifiers: Diabetes mellitus complication detail: with polyneuropathy Diabetes mellitus complication status: with neurologic complications Diabetes mellitus skilled nursing insulin use: without skilled nursing use Qualified Code(s): E11.42 - Type 2 diabetes mellitus with diabetic polyneuropathy Category: Medical Code(s): E11.9 - Type 2 diabetes mellitus without complications (7) Tobacco abuse: Status: Chronic Category: Medical Code(s): Z72.0 - Tobacco use (8) Unable to care for self: Status: Resolved Category: Medical Code(s): Z78.9 - Other specified health status Plan 67-year-old male with a PMHx of hypertension, type 2 diabetes, CKD, frequent falls, COPD, colon cancer, prior history of alcohol abuse, and extensive smoking history presenting to the emergency department for evaluation with concern for frequent falls. On arrival patient presented c/o pain on his right hip. head to toe imaging was obtained. There is a concern for T12 compression fracture with undetermined age. Rest of the exam negative for acute trauma. Labs significant for acute kidney injury, With elevated creatinine of 2.6. Patient visible dehydration. Findings discussed with the ER for admission. Plan as follows: -Acute on chronic kidney injury, suspected prerenal. Likely secondary to dehydration: Admit patient for medical services. Dispo MedSurg Continue IV hydration Encourage increased p.o. patient is able to eat and swallow normally Bedside swallow test by nurse Monitor renal output Avoid nephrotoxic medication Repeat CMP in the morning -Frequent falls, presented with T12 compression fracture. undeterminable age. Suspected subacute. PT OT for eval and treatment Pain management History of hypertension COPD and diabetes: Conditions are reviewed. Resume home medication sliding scale BS before meals Tobacco user: on nicotine patch Unable to care for himself: CM will be consulted after therapy recommendation for medical assistant float with D/c plan. Lovenox for DVT prophylaxis. Protonix for GERD and GI bleed protection Full code Attending attestation Patient was seen and evaluated at the bedside myself, agree with ELVIS note.
[2023-07-01] MEDS: LACTATED RINGERS 1000ML 1,000 ML 50 ML IV (20:05)
[2023-07-01] MEDS: MORPHINE 2MG/ML SYRINGE 2 MG IV (20:16)
[2023-07-01 20:18] LABS: POC Glucose,Bedside 125 (70-110)
[2023-07-01 20:37] LABS: Troponin I < 0.01 ng/ml (0.00-0.034)
[2023-07-02] VITALS: BP 109/70; PULSE 85; RESP 18; TEMP 36.5; O2SAT 96
[2023-07-02 04:00] VITALS: BP 122/73; PULSE 85; RESP 18; TEMP 36.7; O2SAT 95; BMI 20.2
[2023-07-02 04:37] LABS: Microscopic, Urine URINE MICROSCOPIC (MICROSCOPIC)
[2023-07-02 04:39] LABS: Appearance,Urine CLEAR (Clear); Bilirubin,Urine Negative (Negative); Blood, Urine Negative (Negative); Color,Urine YELLOW (Yellow); Glucose,Urine (UA) Negative (Negative); Ketones,Urine Negative (Negative); Leukocyte Esterase,Urine Negative (Negative); Nitrate,Urine Negative (Negative); Protein,Urine Negative (Negative); Urobilinogen,Urine 0.2 EU/dl (0.2)
[2023-07-02 04:57] LABS: WBC,Urine Occasional #/hpf (0-3)
--- NOTE | 2023-07-02 05:18 | PC.NURSE ---
Pt is alert and oriented x4 and currently on RA. pt has complained of lower back pain once this shift and has been treated per MAR. Pt requested inhaler, contacted RT for admin. Pt is tolerating fluids well. Pt denies pain and other needs at this time.
[2023-07-02] MEDS: ALBUTEROL-HFA 90MCG/PUFF INHALER 8GM 2 PUFF IH ×2 (05:35→13:55)
[2023-07-02 06:01] LABS: POC Glucose,Bedside 183 (70-110)
[2023-07-02] MEDS: HEPARIN SODIUM 5,000 UNIT/ML VIAL 5000 UNIT SQ ×3 (06:11→21:56)
[2023-07-02] MEDS: humaLOG 100 UNITS/ML 3ML VIAL (SSI) SQ (06:12)
[2023-07-02 07:29] VITALS: BP 108/65; PULSE 93; RESP 18; TEMP 36.9; O2SAT 93
[2023-07-02 08:04] LABS: Chloride 108 mmol/L (98-107)
[2023-07-02 08:05] LABS: Potassium 5.2 mmoL/L (3.5-5.1); Sodium 133 mmol/L (136-145)
[2023-07-02 08:08] LABS: Anion Gap 10.2 mEq/L (5-15); Blood Urea Nitrogen 33 mg/dl (9-20); Calcium 7.9 mg/dl (8.4-10.2); Carbon Dioxide 20 mmol/L (22.0-30.0); Creatinine Clearance Estimated 34 mL/min (50-200); Estimated Glomerular Filt Rate 38 ml/min (>60); GFR (African American) 46 ML/MIN (>60); Glucose 149 mg/dl (74-100)
--- NOTE | 2023-07-02 08:32 | HMH.PHAINT1 ---
Pharmacy Intervention Comments: VERIFIED HOME MEDICATION LIST USING LIST FROM OUTPATIENT PHARMACY, LIST FROM PHYSICIANS OFFICE AND LIST FROM PREVIOUS DISCHARGE
[2023-07-02 08:36] LABS: Basophils # 0.1 K/mm3 (0-0.2); Basophils % 0.9 % (0.1-2.0); Eosinophils # 0.2 K/mm3 (0.0-0.4); Eosinophils % 2.6 % (0.1-12.0); Hematocrit 40.9 % (42.0-52.0); Hemoglobin 13.1 g/dL (14.1-18.0); Lymphocytes # 3.9 K/mm3 (0.7-4.5); Lymphocytes % 47.6 % (10-50); Mean Corpuscular HGB Conc 32.1 g/dL (31.8-35.4); Mean Corpuscular Hemoglobin 30.4 pg (27.0-31.2); Mean Corpuscular Volume 94.7 fl (80-94); Mean Platelet Volume 8.6 fl (7.4-10.4); Monocytes # 0.5 K/mm3 (0.1-1.0); Neutrophils # 3.6 K/mm3 (1.8-7.8); Neutrophils % 42.9 % (37.0-80.0); Platelet Count 253 K/mm3 (142-424); Red Blood Count 4.32 M/mm3 (4.60-6.20); White Blood Count 8.3 K/mm3 (4.8-10.8)
[2023-07-02] MEDS: FLUTICASONE/UMECLIDIN/VILANTER 200/62.5/25MCG INHALER 1 PUFF IH (08:55)
[2023-07-02] MEDS: MAGNESIUM OXIDE 400MG TABLET 400 MG PO (09:02)
[2023-07-02] MEDS: CARVEDILOL 25MG TABLET 25 MG PO ×2 (09:02→21:56)
[2023-07-02] MEDS: THIAMINE 100MG TABLET 100 MG PO (09:02)
[2023-07-02] MEDS: IRBESARTAN 150MG TAB 150 MG PO (09:02)
--- NOTE | 2023-07-02 09:04 | EXP.DC.SUM ---
General Admission date:: 07/01/23 Discharge date: 07/02/23 HPI HPI HPI: This is a 67-year-old male with a PMHx of hypertension, type 2 diabetes, CKD, frequent falls, COPD, colon cancer, prior history of alcohol abuse, and extensive smoking history presenting to the emergency department for evaluation with concern for frequent falls. Patient is a poor historian, most data collected form ED and EMS report. Patient was admitted to the hospital in May for altered mental status and was subsequently discharged to nursing facility for rehabilitation. Discharged from nursing facility 06/16/2023 and refused home health care. Since going home, he has not been able to eat or drink very much at all and has not been able to get around very well. He notes that he had multiple frequent falls, with most recent fall being just prior to arrival. This is what prompted him to call EMS. With this fall, he injured his left hip and was not able to get back up. He denies head injury or loss of consciousness. No fevers, chills, cough, abdominal pain, changes in bowel movements, or other concerns. He does note that he has not been able to eat or drink very much and has been very nauseated, and he also has been feeling short of air and having chest pain. Admitted for management and treatment. Hospital Course Hospital Course Hospital Course: Patient was seen and evaluated at the bedside on the day of discharge. Patient is stable for discharge. Patient wishes to be discharged. All patient questions were answered and patient was given time to ask questions. Patient was discharged in stable condition. Patient understands that she can return to ER in case of any sudden changes in health. Total time spent on DC - 38 mins 67-year-old male with a PMHx of hypertension, type 2 diabetes, CKD, frequent falls, COPD, colon cancer, prior history of alcohol abuse, and extensive smoking history presenting to the emergency department for evaluation with concern for frequent falls. On arrival patient presented c/o pain on his right hip. head to toe imaging was obtained. There is a concern for T12 compression fracture with undetermined age. Rest of the exam negative for acute trauma. Labs significant for acute kidney injury, With elevated creatinine of 2.6. Patient visible dehydration. Findings discussed with the ER for admission. Plan as follows: -Acute on chronic kidney injury, suspected prerenal. Likely secondary to dehydration: - improved significantly, continue to hold REENA/ARB for 2 more days encourage oral hydration -Frequent falls, presented with T12 compression fracture. undeterminable age. Suspected subacute. PT OT for eval and treatment Pain management History of hypertension COPD and diabetes: Conditions are reviewed. 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 Lovenox for DVT prophylaxis. Protonix for GERD and GI bleed protection Full code This note serves as progress note if patient is not discharged Exam Data for Last 24 hours Vital signs and Labs for Last 24 Hours: Temp Pulse Resp BP Pulse Ox O2 Del Method 98.5 F 93 H 18 108/65 L 93 L Room Air 07/02/23 07:29 07/02/23 07:29 07/02/23 07:29 07/02/23 07:29 07/02/23 07:29 07/02/23 07:29 Laboratory Results - last 24 hr 07/01/23 14:20: WBC 9.5, RBC 3.90 L, Hgb 13.3 L, Hct 36.4 L, MCV 93.4, MCH 34.2 H, MCHC 36.7 H, RDW 13.9, Plt Count 258, MPV 8.3, Neut % (Auto) 55.9, Lymph % (Auto) 34.7, [place] % (Auto) 6.4, Eos % (Auto) 2.1, Baso % (Auto) 0.9, Neut # (Auto) 5.3, Lymph # (Auto) 3.3, [place] # (Auto) 0.6, Eos # (Auto) 0.2, Baso # (Auto) 0.1, PT 10.9, INR 1.01, APTT 26.6, Sodium 137, Potassium 5.4 H, Chloride 104, Carbon Dioxide 29, Anion Gap 9.4, BUN 45 H, Creatinine 2.60 H, Estimated Creat Clear 22, Estimated GFR 25 L, Est GFR ( Amer) 30 L, Glucose 145 H, Calcium 8.6, Total Bilirubin 0.3, AST 32, ALT 22, Alkaline Phosphatase 140 H, Total Creatine Kinase 28 L, Troponin I < 0.01, Total Protein 6.4 D, Albumin 2.7 L, Globulin 3.7 H, Albumin/Globulin Ratio 0.7 L, Lipase 11 L, TSH 1.50, Thyroxine (T4) 3.1 L 07/01/23 14:40: Lactate 2.1 07/01/23 17:41: Troponin I < 0.01 07/01/23 19:00: Lactate 1.9 07/01/23 19:55: Troponin I < 0.01 07/01/23 20:03: POC Glucose 125 H 07/02/23 04:30: Urine Color Yellow, Urine Appearance Clear, Urine pH 7.0, Ur Specific [place] 1.010, Urine Protein Negative, Urine Glucose (UA) Negative, Urine Ketones Negative, Urine Blood Negative, Urine Nitrate Negative, Urine Bilirubin Negative, Urine Urobilinogen 0.2, Ur Leukocyte Esterase Negative, Urine RBC None, Urine WBC Occasional, Ur Squamous Epith Cells None, Urine Bacteria None 07/02/23 05:52: POC Glucose 183 H 07/02/23 07:08: Sodium 133 L, Potassium 5.2 H, Chloride 108 H, Carbon Dioxide 20 L, Anion Gap 10.2, BUN 33 H D, Creatinine 1.80 H D, Estimated Creat Clear 34, Estimated GFR 38 L, Est GFR ( Amer) 46 L D, Glucose 149 H, Calcium 7.9 L 07/02/23 08:20: WBC 8.3, RBC 4.32 L, Hgb 13.1 L, Hct 40.9 L, MCV 94.7 H, MCH 30.4, MCHC 32.1, RDW 14.0, Plt Count 253, MPV 8.6, Neut % (Auto) 42.9, Lymph % (Auto) 47.6, [place] % (Auto) 6.0, Eos % (Auto) 2.6, Baso % (Auto) 0.9, Neut # (Auto) 3.6, Lymph # (Auto) 3.9, [place] # (Auto) 0.5, Eos # (Auto) 0.2, Baso # (Auto) 0.1 I & O for Last 24 hours: Intake & Output 06/29/23 06/30/23 07/01/23 07/02/23 23:59 23:59 23:59 23:59 Intake Total 1440 / 1440 Output Total 1200 / 1200 Balance 1440 / 1440 -1200 / -1200 Weight 56.897 kg 60.498 kg Constitutional Constitutional: no acute distress *Routine HEENT Exam Head: Present normocephalic Eye: Present EOMI and PERRL ENT: Present mucous membranes moist *Routine Neck Exam Neck: Present supple; Absent lymphadenopathy *Routine Respiratory Exam Respiratory: Present CTA bilaterally *Routine Cardiovascular Exam Cardiovascular: Present RRR *Routine Abdominal Exam Abdominal: Present soft and normoactive bowel sounds; Absent tenderness *Routine Extremities Exam Extremities: Absent cyanosis, clubbing or edema *Routine Skin Exam Skin: Present warm; Absent rash *Routine Neurological Exam Neurological: Present alert and oriented X3 Results Data Completed and Pending Labs on day of discharge: Labs from last 24 hours 07/02/23 07/02/23 07/02/23 08:20 07:08 05:52 WBC 8.3 RBC 4.32 L Hgb 13.1 L Hct 40.9 L MCV 94.7 H MCH 30.4 MCHC 32.1 RDW 14.0 Plt Count 253 MPV 8.6 Neut % (Auto) 42.9 Lymph % (Auto) 47.6 [place] % (Auto) 6.0 Eos % (Auto) 2.6 Baso % (Auto) 0.9 Neut # (Auto) 3.6 Lymph # (Auto) 3.9 [place] # (Auto) 0.5 Eos # (Auto) 0.2 Baso # (Auto) 0.1 PT INR APTT Sodium 133 L Potassium 5.2 H Chloride 108 H Carbon Dioxide 20 L Anion Gap 10.2 BUN 33 H D Creatinine 1.80 H D Estimated Creat Clear 34 Estimated GFR 38 L Est GFR ( Amer) 46 L D Glucose 149 H POC Glucose 183 H Lactate Calcium 7.9 L Total Bilirubin AST ALT Alkaline Phosphatase Total Creatine Kinase Troponin I Total Protein Albumin Globulin Albumin/Globulin Ratio Lipase TSH Thyroxine (T4) Urine Color Urine Appearance Urine pH Ur Specific [place] Urine Protein Urine Glucose (UA) Urine Ketones Urine Blood Urine Nitrate Urine Bilirubin Urine Urobilinogen Ur Leukocyte Esterase Urine RBC Urine WBC Ur Squamous Epith Cells Urine Bacteria 07/02/23 07/01/23 07/01/23 04:30 20:03 19:55 WBC RBC Hgb Hct MCV MCH MCHC RDW Plt Count MPV Neut % (Auto) Lymph % (Auto) [place] % (Auto) Eos % (Auto) Baso % (Auto) Neut # (Auto) Lymph # (Auto) [place] # (Auto) Eos # (Auto) Baso # (Auto) PT INR APTT Sodium Potassium Chloride Carbon Dioxide Anion Gap BUN Creatinine Estimated Creat Clear Estimated GFR Est GFR ( Amer) Glucose POC Glucose 125 H Lactate Calcium Total Bilirubin AST ALT Alkaline Phosphatase Total Creatine Kinase Troponin I < 0.01 Total Protein Albumin Globulin Albumin/Globulin Ratio Lipase TSH Thyroxine (T4) Urine Color Yellow Urine Appearance Clear Urine pH 7.0 Ur Specific [place] 1.010 Urine Protein Negative Urine Glucose (UA) Negative Urine Ketones Negative Urine Blood Negative Urine Nitrate Negative Urine Bilirubin Negative Urine Urobilinogen 0.2 Ur Leukocyte Esterase Negative Urine RBC None Urine WBC Occasional Ur Squamous Epith Cells None Urine Bacteria None 07/01/23 07/01/23 07/01/23 19:00 17:41 14:40 WBC RBC Hgb Hct MCV MCH MCHC RDW Plt Count MPV Neut % (Auto) Lymph % (Auto) [place] % (Auto) Eos % (Auto) Baso % (Auto) Neut # (Auto) Lymph # (Auto) [place] # (Auto) Eos # (Auto) Baso # (Auto) PT INR APTT Sodium Potassium Chloride Carbon Dioxide Anion Gap BUN Creatinine Estimated Creat Clear Estimated GFR Est GFR ( Amer) Glucose POC Glucose Lactate 1.9 2.1 Calcium Total Bilirubin AST ALT Alkaline Phosphatase Total Creatine Kinase Troponin I < 0.01 Total Protein Albumin Globulin Albumin/Globulin Ratio Lipase TSH Thyroxine (T4) Urine Color Urine Appearance Urine pH Ur Specific [place] Urine Protein Urine Glucose (UA) Urine Ketones Urine Blood Urine Nitrate Urine Bilirubin Urine Urobilinogen Ur Leukocyte Esterase Urine RBC Urine WBC Ur Squamous Epith Cells Urine Bacteria 07/01/23 14:20 WBC 9.5 RBC 3.90 L Hgb 13.3 L Hct 36.4 L MCV 93.4 MCH 34.2 H MCHC 36.7 H RDW 13.9 Plt Count 258 MPV 8.3 Neut % (Auto) 55.9 Lymph % (Auto) 34.7 [place] % (Auto) 6.4 Eos % (Auto) 2.1 Baso % (Auto) 0.9 Neut # (Auto) 5.3 Lymph # (Auto) 3.3 [place] # (Auto) 0.6 Eos # (Auto) 0.2 Baso # (Auto) 0.1 PT 10.9 INR 1.01 APTT 26.6 Sodium 137 Potassium 5.4 H Chloride 104 Carbon Dioxide 29 Anion Gap 9.4 BUN 45 H Creatinine 2.60 H Estimated Creat Clear 22 Estimated GFR 25 L Est GFR ( Amer) 30 L Glucose 145 H POC Glucose Lactate Calcium 8.6 Total Bilirubin 0.3 AST 32 ALT 22 Alkaline Phosphatase 140 H Total Creatine Kinase 28 L Troponin I < 0.01 Total Protein 6.4 D Albumin 2.7 L Globulin 3.7 H Albumin/Globulin Ratio 0.7 L Lipase 11 L TSH 1.50 Thyroxine (T4) 3.1 L Urine Color Urine Appearance Urine pH Ur Specific [place] Urine Protein Urine Glucose (UA) Urine Ketones Urine Blood Urine Nitrate Urine Bilirubin Urine Urobilinogen Ur Leukocyte Esterase Urine RBC Urine WBC Ur Squamous Epith Cells Urine Bacteria DS: Diagnosis Discharge Diagnosis (1) [id number] kidney injury: Status: Acute Code(s): N17.9 - Acute kidney failure, unspecified; N18.9 - Chronic kidney disease, unspecified Qualifiers: Acute renal failure type: unspecified Chronic kidney disease stage: stage 3 (moderate) Chronic kidney disease stage 3 subtype: stage 3a (GFR 45-59) Qualified Code(s): N17.9 - Acute kidney failure, unspecified; N18.31 - Chronic kidney disease, stage 3a (2) T12 compression fracture: Status: Acute Code(s): S22.080A - Wedge compression fracture of T11-T12 vertebra, initial encounter for closed fracture Qualifiers: Encounter type: initial encounter Qualified Code(s): S22.080A - Wedge compression fracture of T11-T12 vertebra, initial encounter for closed fracture (3) Frequent falls: Status: Acute Code(s): R29.6 - Repeated falls (4) HTN (hypertension): Status: Chronic Code(s): I10 - Essential (primary) hypertension Qualifiers: Hypertension type: essential hypertension Qualified Code(s): I10 - Essential (primary) hypertension (5) COPD (chronic obstructive pulmonary disease): Status: Chronic Code(s): J44.9 - Chronic obstructive pulmonary disease, unspecified Qualifiers: COPD type: unspecified COPD Qualified Code(s): J44.9 - Chronic obstructive pulmonary disease, unspecified (6) Type 2 diabetes mellitus: Status: Chronic Code(s): E11.9 - Type 2 diabetes mellitus without complications Qualifiers: Diabetes mellitus complication detail: with polyneuropathy Diabetes mellitus complication status: with neurologic complications Diabetes mellitus senior living insulin use: without terminal 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 200 mcg-umeclid 1 inh inhalation DAILY 05/06/23 07/01/23 History 62.5 mcg-vilant 25 mcg inhalat.powder (Trelegy Ellipta) levocetirizine 5 mg tablet 5 mg PO HS 05/06/23 07/01/23 History [id number] 1 cap PO BIDWMEAL 05/06/23 07/01/23 History 10,000-32,000-42,000 unit capsule,delayed rel (Zenpep) magnesium oxide 400 mg (241.3 mg 400 mg PO BID 05/06/23 07/01/23 History magnesium) tablet omeprazole 20 mg capsule,delayed 20 mg PO DAILY 05/06/23 07/01/23 History release simvastatin 40 mg tablet 40 mg PO HS 05/06/23 07/01/23 History thiamine HCl (vitamin B1) 100 mg 100 mg PO DAILY 05/06/23 07/01/23 History tablet linagliptin 5 mg tablet (Tradjenta) 5 mg PO DAILY Diabetes 05/07/23 07/01/23 History carvedilol 25 mg tablet 25 mg PO BID 30 days #60 tabs 05/08/23 07/01/23 Rx irbesartan 150 mg tablet 150 mg PO DAILY 30 days #30 tabs 05/08/23 07/01/23 Rx multivitamin 1 tab PO DAILY Supplement 07/01/23 07/01/23 History nicotine 14 mg/24 hr daily 14 mg topical DAILY 07/01/23 07/01/23 History transdermal patch pregabalin 50 mg capsule 50 mg PO BID 07/01/23 07/01/23 History quetiapine 100 mg tablet 100 mg PO BID 07/02/23 07/02/23 History New Prescriptions to Start Prescriptions: Allergies Allergy/AdvReac Type Severity Reaction Status Date / Time No Known Allergies Allergy Verified 03/31/23 14:38 Discharge Plan Disposition Patient Disposition: er [facility] Condition: Fair Discharge Order Discharge Orders: Discharge Order (Routine); Ordered 07/02/23 Ordered By: Rohith Bautista Follow up Plan Prescriptions/Medication Reconciliation: Continued thiamine HCl (vitamin B1) 100 mg tablet 100 mg PO DAILY Patient Comments: TAKE ONE TABLET BY MOUTH EVERY DAY simvastatin 40 mg tablet 40 mg PO HS Patient Comments: TAKE ONE TABLET BY MOUTH EVERY DAY AT BEDTIME magnesium oxide 400 mg (241.3 mg magnesium) tablet 400 mg PO BID Patient Comments: TAKE ONE TABLET BY MOUTH TWICE DAILY omeprazole 20 mg capsule,delayed release(DR/EC) 20 mg PO DAILY Patient Comments: TAKE ONE CAPSULE BY MOUTH EVERY DAY albuterol sulfate [Ventolin HFA] 90 mcg/actuation HFA aerosol inhaler 2 inh INHALATION Q6HP PRN (Reason: Shortness Of Breath Or Wheezing) Patient Comments: INHALE TWO PUFFS BY MOUTH EVERY 6 HOURS NEEDED --SHAKE WELL BEFORE USE-- levocetirizine 5 mg tablet 5 mg PO HS Patient Comments: TAKE ONE TABLET BY MOUTH EVERY DAY IN THE EVENING Zenpep 10,000-32,000 -42,000 unit capsule,delayed release(DR/EC) 1 cap PO BIDWMEAL Patient Comments: TAKE ONE CAPSULE BY MOUTH THREE TIMES DAILY Trelegy Ellipta 200-62.5-25 mcg blister with device 1 inh INHALATION DAILY Patient Comments: INHALE 1 PUFF BY MOUTH DAILY DIRECTED Tradjenta 5 mg Tablet 5 mg PO DAILY carvedilol 25 mg Tablet 25 mg PO BID 30 Days Qty: 60 0RF multivitamin Tablet 1 tab PO DAILY Patient Comments: TAKE ONE TABLET BY MOUTH EVERY DAY nicotine 14 mg/24 hr patch 24 hour 14 mg topical DAILY Patient Comments: apply 1 PATCH topically EVERY DAY pregabalin 50 mg capsule 50 mg PO BID Patient Comments: TAKE ONE CAPSULE BY MOUTH TWICE DAILY MAY CAUSE DROWSINESS quetiapine 100 mg tablet 100 mg PO BID Patient Comments: TAKE ONE TABLET BY MOUTH TWICE DAILY Held irbesartan 150 mg Tablet 150 mg PO DAILY 30 Days Qty: 30 0RF Hold Instructions: Resume on 07/06/23. Problem Reconciliation Problems Reviewed?: Yes Patient Discharge Instructions ACTIVITY: Ambulate as tolerated DIET: continue same diet Patient Instructions: Exercises to Help Prevent Falls, DI for Failure to Thrive, DI for Acute Kidney Injury Providers Primary Care Provider: Provider,Referral Admit Provider: Rohith Bautista Attending Provider: Rohith Bautista
[2023-07-02] MEDS: MORPHINE 2MG/ML SYRINGE 2 MG IV ×2 (09:10→13:52)
[2023-07-02] MEDS: PREGABALIN 50MG CAPSULE 50 MG PO ×2 (09:11→21:56)
--- NOTE | 2023-07-02 09:51 | HMH.OTEV ---
OT Inpatient Evaluation Rehab OT IP Evaluation Start: 07/01/23 20:04 Freq: ONCE Status: Active Protocol: Document 07/02/23 09:46 DARYL (Rec: 07/02/23 09:[id number] Rehab OT IP Assessment Subjective History Pt oriented x 3 on arrival. Pt agreeable to engage in therapy evaluation. Pt admitted on 07/01/23 due to multiple falls and failure to thrive. Prior to being in the hosptial pt lived at [facility] independently. He claims he was independent with all ADLs such as dressing, bathing, and feeding. However he was only able to complete minimal IADLs independently such as small microwavable meals for cooking and light cleaning. He did use a rolling walker during ambulation. He no longer drove. History and physical report: This is a 67-year-old male with a PMHx of hypertension, type 2 diabetes, CKD, frequent falls, COPD, colon cancer, prior history of alcohol abuse , and extensive smoking history presenting to the emergency department for evaluation with concern for frequent falls. Patient is a poor historian, most data collected form ED and EMS report. Patient was admitted to the hospital in May for altered mental status and was subsequently discharged to nursing facility for rehabilitation. Discharged from nursing facility 2023 and refused home health care. Since going home, he has not been able to eat or drink very much at all and has not been able to get around very well. He notes that he had multiple frequent falls, with most recent fall being just prior to arrival. This is what prompted him to call EMS. With this fall, he injured his left hip and was not able to get back up. He denies head injury or loss of consciousness. No fevers, chills, cough, abdominal pain, changes in bowel movements, or other concerns. He does note that he has not been able to eat or drink very much and has been very nauseated, and he also has been feeling short of air and having chest pain. Admitted for management and treatment. Subjective I am weak again. Objective Patient Orientation Person,Place,Birthday Right Upper Extremity Gross ROM Min Limitation <25% Left Upper Extremity Gross ROM Min Limitation <25% Shoulder ROM Limitations Muscle Weakness Elbow ROM Limitations Muscle Weakness Wrist Limitations of Range of Motion Muscle Weakness Bed Mobility bed mobility-scooting,bed mobility - supine/sit Assist Level Minimal x 1 (25% assist) Transfer Training Sit/Stand/Step Transfer Assist Level Minimal x 2 (25% assist) Rehab OT IP prob,goals,plan Problems Date of Evaluation: 07/02/23 OT IP Problems Bed Mobility,Transfers,Balance ,Self care,Safety Rehab Potential Rehab Potential Good Equipment Needs Assistive Devices Rolling / Wheeled Walker Plan OT intervention Plan Bed Mobility,Transfers,Balance ,Self care,Safety,Therapeutic Exercise OT Plan Frequency Daily Duration LOS Discharge Goals Bed Mobility Ability Standby Assistance Sit to Stand Chair Transfer Ability Contact Guard/Hand Hold, Minimal x 1 (25% assist) Chair Transfer Ability Contact Guard/Hand Hold, Minimal x 1 (25% assist) Chair Transfer Technique Sit to/from Ambulatory Chair Transfer Assistive Devices Rolling Walker Feeding Ability Assist with Tray Set Up Lower Body Dressing Ability Minimal Assistance Upper Body Dressing Ability Contact Guard Bathing Ability Minimal Assistance Performing Toilet Hygiene Ability Minimal Assistance Overall Commode/Toilet Transfer Ability Minimal Assistance Commode/Toilet Transfer Technique Sit to/from Ambulatory Commode/Toilet Transfer Assistive Grab Bars Devices Oral Care Assist Contact Guard Decrease in Endurance Yes Discharge Plan OT Discharge Plan Pt will continue to be seen for OT services while at [facility]. Pt would benefit most from short term rehab at SNF following discharge. Continued skilled therapy is important for patient to improve strength, safety, endurance, ADL independence, and functional transfers to reach PLOF. Eval Complexity Eval Charge Codes 43139 - Moderate Complexity PHYSICIAN CERTIFICATION: I certify the specified therapy services for Noah Rivero JR are required, authorized, and reviewed every 30 days.
--- NOTE | 2023-07-02 10:06 | HMH.PTEV ---
Physical Therapy Evaluation Rehab PT IP Evaluation Start: 07/01/23 20:03 Freq: ONCE Status: Active Protocol: Document 07/02/23 09:15 REMINGTON (Rec: 07/02/23 10:05 REMINGTON [id number]) Subjective/History History History Per history and physical: This is a 67-year-old male with a PMHx of hypertension, type 2 diabetes, CKD, frequent falls, COPD, colon cancer, prior history of alcohol abuse , and extensive smoking history presenting to the emergency department for evaluation with concern for frequent falls. Patient is a poor historian, most data collected form ED and EMS report. Patient was admitted to the hospital in May for altered mental status and was subsequently discharged to nursing facility for rehabilitation. Discharged from nursing facility 2023 and refused home health care. Since going home, he has not been able to eat or drink very much at all and has not been able to get around very well. He notes that he had multiple frequent falls, with most recent fall being just prior to arrival. This is what prompted him to call EMS. With this fall, he injured his left hip and was not able to get back up. He denies head injury or loss of consciousness. No fevers, chills, cough, abdominal pain, changes in bowel movements, or other concerns. He does note that he has not been able to eat or drink very much and has been very nauseated, and he also has been feeling short of air and having chest pain. Admitted for management and treatment. Subjective Subjective Pt agreeable to PT evaluation. Pt reports he was living alone with difficulty caring for himself. Pt reports getting around his home has progressively become more difficult and reports history of recent falls. Pt stated he was in a senior living for rehab and was walking well but has declined since returning home. New diagnosis of cancer in past 12 No months? Rehab PT IP Eval Objective Appearance Patient Behavior Appropriate,Cooperative Patient Orientation Person,Place,Situation Speech Pattern Clear Ambulation Patient Able to Ambulate No Transfers Bed Transfer Ability Supervision/Stand by Sit to Stand Bed Transfer Ability Minimal x 2 (25% assist) Rehab PT IP prob,goals,plan Problems Date of Evaluation: 07/02/23 PT IP Problems Bed Mobility,Transfers,Gait, Balance Rehab Potential Rehab Potential Good Equipment Needs Assistive Devices Rolling / Wheeled Walker Plan PT Intervention Plan Bed Mobility,Transfers,Gait, Balance,Safety,Therapeutic Exercise Other Intervention Plan 1-2 times PT Plan Frequency Daily Duration LOS Discharge Goals Bed Transfer Ability Independent Sit to Stand Chair Transfer Ability Contact Guard/Hand Hold Ambulation Assistive Device Rolling Walker Ambulation Distance (feet) 10 Discharge Plan PT Discharge Plan Pt is not safe to return home d/t current functional mobility level. Pt is at high risk for falls, therefore, PT recommending placement in short-term rehabilitation. Pt would benefit from skilled physical therapy to address deficits and prevent further functional decline. Eval Complexity Eval Charge Codes 38022 - High Complexity PHYSICIAN CERTIFICATION: I certify the specified therapy services for Noah Rivero JR are required, authorized, and reviewed every 30 days.
[2023-07-02] MEDS: LOKELMA 5GM PACKET 10 GM PO (10:30)
[2023-07-02 11:34] VITALS: BP 103/68; PULSE 78; RESP 18; TEMP 36.6; O2SAT 94
--- NOTE | 2023-07-02 11:43 | CARE MANAGER ---
Addendum entered by Pat Godoy 07/03/23 10:16: Patient will discharge to [facility] level of care today. Addendum entered by Berta Soto RN 07/02/23 13:33: Patient has been accepted to [facility] when he is medically stable under ICF level of care. Original Note: PT/OT suggest SNF for rehab. Spoke with patient as he will not have 3 day qualifying stay. He will need to go under Medicaid Pending. Patient wants to go to [facility]. Chanda states they do have a bed available. Spoke with Iman, patient's daughter and POA. She states she would like patient to go as well, however, does not know if he will stay [employer], which is what she wants him to do. She states to go on and send Chanda information and she will speak with her dad. Will follow up with Chanda. CANDIS Shepard
--- NOTE | 2023-07-02 13:31 | EXP.EVENT.NO ---
I called patient daughter for updates on plan of care, she agreed with plan and overall care. She was ok with her father to be discharged tomorrow if he has a SNF place.
[2023-07-02] MEDS: LACTATED RINGERS 1000ML 1,000 ML 50 ML IV (14:05)
--- NOTE | 2023-07-02 14:18 | PC.NURSE ---
patient voices pain in back and knees. PRN morphine given, desired effects met. No further complaints at this time.
[2023-07-02 16:00] VITALS: BP 122/72; PULSE 79; RESP 18; TEMP 36.8; O2SAT 94
--- NOTE | 2023-07-02 16:44 | PC.NURSE ---
Patient is alert and oriented x4. Voices no pain at this time. No concerns noted. Awaiting to hear back for placement in intermediate. In bed watching TV, call light is in reach.
[2023-07-02] MEDS: LIPASE/PROTEASE/AMYLASE 1 EACH CAPSULE.DR PO (17:41)
[2023-07-02] MEDS: MULTIVITAMIN TABLET 1 EACH PO (17:41)
[2023-07-02 20:00] VITALS: BP 128/76; PULSE 79; RESP 18; TEMP 36.7; O2SAT 96
[2023-07-02] MEDS: QUETIAPINE 100MG TABLET 100 MG PO (21:56)
[2023-07-02] MEDS: PRAVASTATIN 40MG TAB 80 MG PO (21:56)
[2023-07-02 22:09] LABS: POC Glucose,Bedside 105 (70-110)
[2023-07-03 04:00] VITALS: BP 106/70; PULSE 76; RESP 18; TEMP 36.5; O2SAT 92; BMI 20.5
[2023-07-03] MEDS: HEPARIN SODIUM 5,000 UNIT/ML VIAL 5000 UNIT SQ (05:19)
[2023-07-03] MEDS: ACETAMINOPHEN 325MG TAB 650 MG PO (05:19)
--- NOTE | 2023-07-03 05:27 | PC.NURSE ---
Patient has had a good night. Has sleep most of the night. Patient was incontinent once and did get a full bed change and a bed bath. No other issues through the shift
[2023-07-03 05:29] LABS: POC Glucose,Bedside 118 (70-110)
[2023-07-03] MEDS: LIPASE/PROTEASE/AMYLASE 1 EACH CAPSULE.DR PO (06:39)
[2023-07-03 06:51] LABS: Basophils % 0.7 % (0.1-2.0); Eosinophils # 0.2 K/mm3 (0.0-0.4); Eosinophils % 2.4 % (0.1-12.0); Hematocrit 36.8 % (42.0-52.0); Hemoglobin 12.3 g/dL (14.1-18.0); Lymphocytes # 3.2 K/mm3 (0.7-4.5); Lymphocytes % 49.9 % (10-50); Mean Corpuscular HGB Conc 33.5 g/dL (31.8-35.4); Mean Corpuscular Hemoglobin 30.7 pg (27.0-31.2); Mean Corpuscular Volume 91.7 fl (80-94); Mean Platelet Volume 8.4 fl (7.4-10.4); Monocytes # 0.5 K/mm3 (0.1-1.0); Monocytes % 7.3 % (1.7-9.3); Neutrophils # 2.5 K/mm3 (1.8-7.8); Neutrophils % 39.7 % (37.0-80.0); Platelet Count 213 K/mm3 (142-424); Red Blood Count 4.02 M/mm3 (4.60-6.20); Red Cell Distribution Width 13.8 % (11.5-17.5); White Blood Count 6.3 K/mm3 (4.8-10.8)
[2023-07-03] MEDS: ALBUTEROL-HFA 90MCG/PUFF INHALER 8GM 2 PUFF IH (06:52)
[2023-07-03] MEDS: FLUTICASONE/UMECLIDIN/VILANTER 200/62.5/25MCG INHALER 1 PUFF IH (06:52)
[2023-07-03 07:26] LABS: Chloride 108 mmol/L (98-107); Sodium 134 mmol/L (136-145)
[2023-07-03 07:27] LABS: Potassium 4.7 mmoL/L (3.5-5.1)
[2023-07-03 07:29] LABS: Blood Urea Nitrogen 26 mg/dl (9-20); Creatinine Clearance Estimated 39 mL/min (50-200); Estimated Glomerular Filt Rate 43 ml/min (>60); GFR (African American) 52 ML/MIN (>60)
[2023-07-03 07:30] LABS: Anion Gap 5.7 mEq/L (5-15); Carbon Dioxide 25 mmol/L (22.0-30.0); Glucose 118 mg/dl (74-100)
[2023-07-03 08:00] VITALS: BP 114/76; PULSE 70; RESP 18; TEMP 36.4; O2SAT 94
[2023-07-03] MEDS: MAGNESIUM OXIDE 400MG TABLET 400 MG PO (08:44)
[2023-07-03] MEDS: PREGABALIN 50MG CAPSULE 50 MG PO (08:44)
[2023-07-03] MEDS: THIAMINE 100MG TABLET 100 MG PO (08:45)
[2023-07-03] MEDS: CARVEDILOL 25MG TABLET 25 MG PO (08:45)
--- NOTE | 2023-07-03 10:30 | P.DS_ITS ---
General Admission date:: 07/01/23 Discharge date: 07/03/23 HPI HPI HPI: This is a 67-year-old male with a PMHx of hypertension, type 2 diabetes, CKD, frequent falls, COPD, colon cancer, prior history of alcohol abuse, and extensive smoking history presenting to the emergency department for evaluation with concern for frequent falls. Patient is a poor historian, most data collected form ED and EMS report. Patient was admitted to the hospital in May for altered mental status and was subsequently discharged to nursing facility for rehabilitation. Discharged from nursing facility 06/16/2023 and refused home health care. Since going home, he has not been able to eat or drink very much at all and has not been able to get around very well. He notes that he had multiple frequent falls, with most recent fall being just prior to arrival. This is what prompted him to call EMS. With this fall, he injured his left hip and was not able to get back up. He denies head injury or loss of consciousness. No fevers, chills, cough, abdominal pain, changes in bowel movements, or other concerns. He does note that he has not been able to eat or drink very much and has been very nauseated, and he also has been feeling short of air and having chest pain. Admitted for management and treatment. Hospital Course Hospital Course Hospital Course: Patient was seen and evaluated at the bedside on the day of discharge. Patient is stable for discharge. Patient wishes to be discharged. All patient questions were answered and patient was given time to ask questions. Patient was discharged in stable condition. Patient understands that she can return to ER in case of any sudden changes in health. Total time spent on DC - 38 mins 67-year-old male with a PMHx of hypertension, type 2 diabetes, CKD, frequent falls, COPD, colon cancer, prior history of alcohol abuse, and extensive smoking history presenting to the emergency department for evaluation with concern for frequent falls. On arrival patient presented c/o pain on his right hip. head to toe imaging was obtained. There is a concern for T12 compression fracture with undetermined age. Rest of the exam negative for acute trauma. Labs significant for acute kidney injury, With elevated creatinine of 2.6. Patient visible dehydration. Findings discussed with the ER for admission. Plan as follows: -Acute on chronic kidney injury, suspected prerenal. Likely secondary to dehydration: - improved significantly, continue to hold REENA/ARB for 2 more days encourage oral hydration -Frequent falls, presented with T12 compression fracture. undeterminable age. Suspected subacute. PT OT for eval and treatment Pain management History of hypertension COPD and diabetes: Conditions are reviewed. 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 Lovenox for DVT prophylaxis. Protonix for GERD and GI bleed protection Full code This note serves as progress note if patient is not discharged time spent. 38 mins Exam Data for Last 24 hours Vital signs and Labs for Last 24 Hours: Temp Pulse Resp BP Pulse Ox O2 Del Method O2 Flow Rate 97.6 F 70 18 114/76 94 L Room Air 96 07/03/23 08:00 07/03/23 08:00 07/03/23 08:00 07/03/23 08:00 07/03/23 08:00 07/03/23 09:00 07/02/23 08:00 Laboratory Results - last 24 hr 07/02/23 21:55: POC Glucose 105 07/03/23 05:20: POC Glucose 118 H 07/03/23 06:30: WBC 6.3, RBC 4.02 L, Hgb 12.3 L, Hct 36.8 L, MCV 91.7, MCH 30.7, MCHC 33.5, RDW 13.8, Plt Count 213, MPV 8.4, Neut % (Auto) 39.7, Lymph % (Auto) 49.9, [place] % (Auto) 7.3, Eos % (Auto) 2.4, Baso % (Auto) 0.7, Neut # (Auto) 2.5, Lymph # (Auto) 3.2, [place] # (Auto) 0.5, Eos # (Auto) 0.2, Baso # (Auto) 0.0, Sodium 134 L, Potassium 4.7, Chloride 108 H, Carbon Dioxide 25, Anion Gap 5.7, BUN 26 H, Creatinine 1.60 H, Estimated Creat Clear 39, Estimated GFR 43 L, Est GFR ( Amer) 52 L, Glucose 118 H D, Calcium 8.0 L I & O for Last 24 hours: Intake & Output 06/30/23 07/01/23 07/02/23 07/03/23 23:59 23:59 23:59 23:59 Intake Total 1440 / 1440 490 / 490 360 / 360 Output Total 1800 / 1800 1125 / 1125 Balance 1440 / 1440 -1310 / -1310 -765 / -765 Weight 56.897 kg 60.498 kg 61.263 kg Constitutional Constitutional: no acute distress *Routine HEENT Exam Head: Present normocephalic Eye: Present EOMI and PERRL ENT: Present mucous membranes moist *Routine Neck Exam Neck: Present supple; Absent lymphadenopathy *Routine Respiratory Exam Respiratory: Present CTA bilaterally *Routine Cardiovascular Exam Cardiovascular: Present RRR *Routine Abdominal Exam Abdominal: Present soft and normoactive bowel sounds; Absent tenderness *Routine Extremities Exam Extremities: Absent cyanosis, clubbing or edema *Routine Skin Exam Skin: Present warm; Absent rash *Routine Neurological Exam Neurological: Present alert and oriented X3 Results Data Completed and Pending Labs on day of discharge: Labs from last 24 hours 07/03/23 07/03/23 07/02/23 06:30 05:20 21:55 WBC 6.3 RBC 4.02 L Hgb 12.3 L Hct 36.8 L MCV 91.7 MCH 30.7 MCHC 33.5 RDW 13.8 Plt Count 213 MPV 8.4 Neut % (Auto) 39.7 Lymph % (Auto) 49.9 [place] % (Auto) 7.3 Eos % (Auto) 2.4 Baso % (Auto) 0.7 Neut # (Auto) 2.5 Lymph # (Auto) 3.2 [place] # (Auto) 0.5 Eos # (Auto) 0.2 Baso # (Auto) 0.0 Sodium 134 L Potassium 4.7 Chloride 108 H Carbon Dioxide 25 Anion Gap 5.7 BUN 26 H Creatinine 1.60 H Estimated Creat Clear 39 Estimated GFR 43 L Est GFR ( Amer) 52 L Glucose 118 H D POC Glucose 118 H 105 Calcium 8.0 L DS: Diagnosis Discharge Diagnosis (1) [id number]-[id number] kidney injury: Status: Acute Code(s): N17.9 - Acute kidney failure, unspecified; N18.9 - Chronic kidney disease, unspecified Qualifiers: Acute renal failure type: unspecified Chronic kidney disease stage: stage 3 (moderate) Chronic kidney disease stage 3 subtype: stage 3a (GFR 45-59) Qualified Code(s): N17.9 - Acute kidney failure, unspecified; N18.31 - Chronic kidney disease, stage 3a (2) T12 compression fracture: Status: Acute Code(s): S22.080A - Wedge compression fracture of T11-T12 vertebra, initial encounter for closed fracture Qualifiers: Encounter type: initial encounter Qualified Code(s): S22.080A - Wedge compression fracture of T11-T12 vertebra, initial encounter for closed fracture (3) Frequent falls: Status: Acute Code(s): R29.6 - Repeated falls (4) HTN (hypertension): Status: Chronic Code(s): I10 - Essential (primary) hypertension Qualifiers: Hypertension type: essential hypertension Qualified Code(s): I10 - Essential (primary) hypertension (5) COPD (chronic obstructive pulmonary disease): Status: Chronic Code(s): J44.9 - Chronic obstructive pulmonary disease, unspecified Qualifiers: COPD type: unspecified COPD Qualified Code(s): J44.9 - Chronic obstructive pulmonary disease, unspecified (6) Type 2 diabetes mellitus: Status: Chronic Code(s): E11.9 - Type 2 diabetes mellitus without complications Qualifiers: Diabetes mellitus [facility] insulin use: without rat exterminator use Diabetes mellitus complication status: with neurologic complications Diabetes mellitus complication detail: with polyneuropathy Qualified Code(s): E11.42 - Type 2 diabetes mellitus with diabetic polyneuropathy (7) Tobacco abuse: Status: Chronic Code(s): Z72.0 - Tobacco use (8) Unable to care for self: Status: Resolved Code(s): Z78.9 - Other specified health status Meds Home Medications and Allergies Home Medications Medication Instructions Recorded Confirmed Type albuterol sulfate 90 mcg/actuation 2 inh inhalation Q6HP PRN 05/06/23 07/01/23 History aerosol inhaler (Ventolin HFA) Shortness Of Breath Or Wheezing fluticasone fur. 200 mcg-umeclid 1 inh inhalation DAILY 05/06/23 07/01/23 History 62.5 mcg-vilant 25 mcg inhalat.powder (Trelegy Ellipta) levocetirizine 5 mg tablet 5 mg PO HS 05/06/23 07/01/23 History kdtfdg-jkycalat-qxscqgz 1 cap PO BIDWMEAL 05/06/23 07/01/23 History 10,000-32,000-42,000 unit capsule,delayed rel (Zenpep) magnesium oxide 400 mg (241.3 mg 400 mg PO BID 05/06/23 07/01/23 History magnesium) tablet omeprazole 20 mg capsule,delayed 20 mg PO DAILY 05/06/23 07/01/23 History release simvastatin 40 mg tablet 40 mg PO HS 05/06/23 07/01/23 History thiamine HCl (vitamin B1) 100 mg 100 mg PO DAILY 05/06/23 07/01/23 History tablet linagliptin 5 mg tablet (Tradjenta) 5 mg PO DAILY Diabetes 05/07/23 07/01/23 History carvedilol 25 mg tablet 25 mg PO BID 30 days #60 tabs 05/08/23 07/01/23 Rx irbesartan 150 mg tablet 150 mg PO DAILY 30 days #30 tabs 05/08/23 07/01/23 Rx multivitamin 1 tab PO DAILY Supplement 07/01/23 07/01/23 History nicotine 14 mg/24 hr daily 14 mg topical DAILY 07/01/23 07/01/23 History transdermal patch pregabalin 50 mg capsule 50 mg PO BID 07/01/23 07/01/23 History quetiapine 100 mg tablet 100 mg PO BID 07/02/23 07/02/23 History New Prescriptions to Start Prescriptions: Allergies Allergy/AdvReac Type Severity Reaction Status Date / Time No Known Allergies Allergy Verified 03/31/23 14:38 Discharge Plan Disposition Patient Disposition: [facility] Condition: Fair Discharge Order Discharge Orders: Discharge Order (Routine); Ordered 07/03/23 Ordered By: Rohith Bautista Follow up Plan Follow up with: Provider,Referral, MD [Primary Care Provider] - 2 weeks Prescriptions/Medication Reconciliation: Continued thiamine HCl (vitamin B1) 100 mg tablet 100 mg PO DAILY Patient Comments: TAKE ONE TABLET BY MOUTH EVERY DAY simvastatin 40 mg tablet 40 mg PO HS Patient Comments: TAKE ONE TABLET BY MOUTH EVERY DAY AT BEDTIME magnesium oxide 400 mg (241.3 mg magnesium) tablet 400 mg PO BID Patient Comments: TAKE ONE TABLET BY MOUTH TWICE DAILY omeprazole 20 mg capsule,delayed release(DR/EC) 20 mg PO DAILY Patient Comments: TAKE ONE CAPSULE BY MOUTH EVERY DAY albuterol sulfate [Ventolin HFA] 90 mcg/actuation HFA aerosol inhaler 2 inh INHALATION Q6HP PRN (Reason: Shortness Of Breath Or Wheezing) Patient Comments: INHALE TWO PUFFS BY MOUTH EVERY 6 HOURS NEEDED --SHAKE WELL BEFORE USE-- levocetirizine 5 mg tablet 5 mg PO HS Patient Comments: TAKE ONE TABLET BY MOUTH EVERY DAY IN THE EVENING Zenpep 10,000-32,000 -42,000 unit capsule,delayed release(DR/EC) 1 cap PO BIDWMEAL Patient Comments: TAKE ONE CAPSULE BY MOUTH THREE TIMES DAILY Trelegy Ellipta 200-62.5-25 mcg blister with device 1 inh INHALATION DAILY Patient Comments: INHALE 1 PUFF BY MOUTH DAILY DIRECTED Tradjenta 5 mg Tablet 5 mg PO DAILY carvedilol 25 mg Tablet 25 mg PO BID 30 Days Qty: 60 0RF multivitamin Tablet 1 tab PO DAILY Patient Comments: TAKE ONE TABLET BY MOUTH EVERY DAY nicotine 14 mg/24 hr patch 24 hour 14 mg topical DAILY Patient Comments: apply 1 PATCH topically EVERY DAY pregabalin 50 mg capsule 50 mg PO BID Patient Comments: TAKE ONE CAPSULE BY MOUTH TWICE DAILY MAY CAUSE DROWSINESS quetiapine 100 mg tablet 100 mg PO BID Patient Comments: TAKE ONE TABLET BY MOUTH TWICE DAILY Held irbesartan 150 mg Tablet 150 mg PO DAILY 30 Days Qty: 30 0RF Hold Instructions: Resume on 07/06/23. Problem Reconciliation Problems Reviewed?: Yes Patient Discharge Instructions ACTIVITY: Ambulate as tolerated DIET: continue same diet Patient Instructions: Exercises to Help Prevent Falls, DI for Failure to Thrive, DI for Acute Kidney Injury Providers Primary Care Provider: Provider,Referral Admit Provider: Rohith Bautista Attending Provider: Rohith Bautista
--- NOTE | 2023-07-03 11:54 | PC.NURSE ---
called report to kelsey at [facility].
== END 2023-07-03 13:00 ==
LOC: ER 17:08 → 2ND 17:19
PROVIDERS: Emergency Medicine; Admitting Provider Internal Medicine; Emergency Provider Emergency Medicine; Visit Provider Internal Medicine
DX: N17.9 Acute kidney failure, unspecified (principal); N18.31 Chronic kidney disease, stage 3a; S22.080A Wedge compression fracture of T11-T12 vertebra, initial encounter for closed fracture; R29.6 Repeated falls; J44.9 Chronic obstructive pulmonary disease, unspecified; I12.9 Hypertensive chronic kidney disease with stage 1 through stage 4 chronic kidney disease, or unspecified chronic kidney disease; E11.22 Type 2 diabetes mellitus with diabetic chronic kidney disease; E11.42 Type 2 diabetes mellitus with diabetic polyneuropathy; Z72.0 Tobacco use; Z85.038 Personal history of other malignant neoplasm of large intestine
CPT/HCPCS: 36415; 70450; 71250; 72125; 72128; 72131; 72192; 73502; 73552; 73562; 74176; 80048; 80053; 81001; 82550; 82962; 83605; 83690; 84436; 84443; 84484; 85025; 85610; 85730; 93005; 97116; 97163; 97166; 97530; 97535; 99285; G0378

== ENCOUNTER 2023-07-22 17:14 | Observation (INO) | payer MEDICARE, SELFPAY ==
[2023-07-22 17:14] VITALS: BP 92/52; PULSE 77; RESP 18; TEMP 37.2; O2SAT 94; BMI 19.3
--- NOTE | 2023-07-22 17:23 | ECG_ITS ---
APPROVED REPORT Exam: Resting ECG HR:75 bpm ECG Measurements Heart Rate 75 AXES PA 191 P 52 QRSd 77 QRS 71 QT 339 T 86 QTc 368 Conclusion SINUS RHYTHM SEPTAL MYOCARDIAL INFARCTION , PROBABLY OLD [40+ ms Q WAVE IN V1/V2] ABNORMAL ECG UNCONFIRMED REPORT Electronically signed by : Shankar Raya MD 07/22/2023 20:34:21
--- NOTE | 2023-07-22 17:25 | XR_ITS ---
PROCEDURE INFORMATION: Exam: XR Chest Exam date and time: 07/22/2023 5:35 PM Age: 68 years old Clinical indication: Shortness of breath; Additional info: Chest pain, shortness of breath TECHNIQUE: Imaging protocol: Radiologic exam of the chest. Views: 1 view. COMPARISON: CT CHEST WO CON 07/01/2023 3:13 PM and chest x-ray 05/06/2023 FINDINGS: Lungs: Emphysematous changes. Calcified granuloma left upper lung faith. Lungs are otherwise clear. Pleural spaces: Unremarkable. No pleural effusion. No pneumothorax. Heart/Mediastinum: Unremarkable. No cardiomegaly. Bones/joints: Unremarkable. IMPRESSION: Stable chest x-ray with no acute disease.
--- NOTE | 2023-07-22 17:29 | ED_ITS ---
I was consulted by the ELVIS and we discussed the complexity of the problems being addressed. I approved the treatment and management plan for this patient's care in the emergency department, thus performing a substantive portion of the medical decision making. Signed, Dalia Merrill MD Discharge Plan Disposition Chief Complaint: Weakness Discharge ED Provider: Dalia Merrill HPI <THERESA Gonzalez - Last Filed: 07/22/23 23:17> General Chief Complaint: Weakness Stated Complaint: weakness Time Seen by Provider: 07/22/23 17:22 History of Present Illness HPI narrative: Patient presents from an alf not in this counts include 234 beds at the [facility] for initially what was reported to be decreased level of consciousness and weakness. However on arrival patient is awake alert and oriented and appropriate however he seems to be a vague historian and can only state to me that he has felt bad for 2 days . He is unable to elucidate exactly how he is been feeling bad. He reports chest pain for 2 days shortness of breath of 2 days fever for 2 days productive cough for 2 days Related Data Home Medications Medication Instructions Recorded Confirmed albuterol sulfate 90 mcg/actuation 2 inh inhalation Q6HP PRN 05/06/23 07/01/23 aerosol inhaler (Ventolin HFA) Shortness Of Breath Or Wheezing fluticasone fur. 200 mcg-umeclid 1 inh inhalation DAILY 05/06/23 07/01/23 62.5 mcg-vilant 25 mcg inhalat.powder (Trelegy Ellipta) levocetirizine 5 mg tablet 5 mg PO HS 05/06/23 07/01/23 [id number] 1 cap PO BIDWMEAL 05/06/23 07/01/23 10,000-32,000-42,000 unit capsule,delayed rel (Zenpep) magnesium oxide 400 mg (241.3 mg 400 mg PO BID 05/06/23 07/01/23 magnesium) tablet omeprazole 20 mg capsule,delayed 20 mg PO DAILY 05/06/23 07/01/23 release simvastatin 40 mg tablet 40 mg PO HS 05/06/23 07/01/23 thiamine HCl (vitamin B1) 100 mg 100 mg PO DAILY 05/06/23 07/01/23 tablet linagliptin 5 mg tablet (Tradjenta) 5 mg PO DAILY Diabetes 05/07/23 07/01/23 multivitamin 1 tab PO DAILY Supplement 07/01/23 07/01/23 nicotine 14 mg/24 hr daily 14 mg topical DAILY 07/01/23 07/01/23 transdermal patch pregabalin 50 mg capsule 50 mg PO BID 07/01/23 07/01/23 quetiapine 100 mg tablet 100 mg PO BID 07/02/23 07/02/23 Previous Rx's Medication Instructions Recorded carvedilol 25 mg tablet 25 mg PO BID 30 days #60 tabs 05/08/23 irbesartan 150 mg tablet 150 mg PO DAILY 30 days #30 tabs 05/08/23 Allergies Allergy/AdvReac Type Severity Reaction Status Date / Time No Known Allergies Allergy Verified 03/31/23 14:38 [facility] <THERESA Gonzalez - Last Filed: 07/22/23 23:17> [facility] Disclaimer: The information contained in this section may have been updated after the patie nt was seen, as this information can be updated by other users. Medical History (Updated 07/07/23 @ 00:21 by Toshia Hernandez) Abnormal computerized axial tomography of chest Acute alcoholic pancreatitis Acute hyperkalemia Acute pain of left hip Acute pancreatitis Acute renal failure Gyvcx-th-[id number] kidney injury Adult failure to thrive [place] (acute kidney injury) [place] (acute kidney injury) Alcohol abuse Alcohol withdrawal Alcoholic pancreatitis Alcoholism Altered mental status Anxiety Arthritis Asthma Cavitary lesion of lung Chronic alcohol abuse Chronic pancreatitis Chronic pancreatitis due to chronic alcoholism CKD (chronic kidney disease) Colon cancer COPD (chronic obstructive pulmonary disease) COPD (chronic obstructive pulmonary disease) COPD mixed type COVID COVID Depression Diabetes mellitus, type 2 Dyspnea on exertion Fall Frequent falls GERD (gastroesophageal reflux disease) History of gastroesophageal reflux (GERD) HTN (hypertension) Hx of malignant neoplasm of colon Hyperlipidemia Hypertension Hypomagnesemia Hyponatremia Hyponatremia Illiteracy Irritable bowel syndrome (IBS) Lung abscess Macrocytic anemia Neuropathy Pneumonia Pneumonia Polysubstance abuse Prostate cancer Protein-calorie malnutrition, mild Protein-calorie malnutrition, moderate Pulmonary emphysema Smoking greater than 30 pack years T12 compression fracture Tobacco abuse Tobacco use disorder Transaminitis Type 2 diabetes mellitus Surgical History History of colon resection History of colonoscopy Hx of prostatectomy S/P TURP Family History Mother Family history of diabetes mellitus type II Social History (Updated 07/01/23 @ 17:39 by Karina Leonard RN) Smoking Status: Never smoker years smoked: 54 quit status: has quit before second hand exposure: Yes alcohol intake: current counseling provided: provider counseling substance use type: marijuana current occupational status: disabled Travel in the last 8 weeks: None household members: none housing: apartment lives independently: Yes (home health comes twice a week ) marital status: current occupational exposures/hazards: No caffeine: Yes (coffee) physical activity: none do you feel safe at home: Yes <THERESA Gonzalez Last Filed: 07/22/23 23:17> ROS Obtained: Yes Systems reviewed as appropriate & no additional complaints except as documented Physical Exam <THERESA Gonzalez Last Filed: 07/22/23 23:17> General General appearance: alert and in no apparent distress Head Head exam: atraumatic and normal inspection Eye Eye exam: Present normal appearance, PERRL and EOMI ENT ENT exam: Present normal exam, normal oropharynx and mucous membranes moist Neck Neck exam: Present normal inspection, full ROM and trachea midline Chest Chest inspection: Present normal inspection and symmetric chest wall rise Respiratory Respiratory exam: Present other (Patient has slight end expiratory wheezes at the bases however remainder of lung faith are clear to auscultation. Patient has a wet productive productive cough of green sputum) Cardiovascular Cardiovascular exam: Present regular rate, normal rhythm, normal heart sounds, +S1 and +S2 Abdominal Exam Abdominal exam: Present soft and normal bowel sounds; Absent tenderness, guarding or rebound Extremities Exam Extremities exam: Present normal inspection and full ROM Neurological Exam Neurological exam: Present alert and oriented X3 Psychiatric Psychiatric exam: Present normal affect and normal mood Skin Skin exam: Present warm, dry and normal color HEART Score <THERESA Gonzalez Last Filed: 07/22/23 23:17> HEART Score HEART Score assessment performed?: Yes History (anamnesis): Slightly suspicious ECG: Normal Age: >65 years Risk factors: 3 or more risk factors Troponin: </= normal limit HEART Score: 4 Critical Care <THERESA Gonzalez Last Filed: 07/22/23 23:17> Critical Care Time Critical Care Time: No Medical Decision Making <THERESA Gonzalez Last Filed: 07/22/23 23:17> Medical Records Medical records reviewed: Yes I reviewed the patient's medical records. Steven Inquiry Pt receiving controlled substance: No Vital Signs Vital Signs: 07/22/23 17:14 Temperature 98.9 F Temperature Source Oral Pulse Rate [Right] 77 Respiratory Rate 18 Blood Pressure [Right Arm] 92/52 L Blood Pressure Mean [Right Arm] 65 Blood Pressure Source [Right Arm] Automatic Cuff 02 Sat by Pulse Oximetry 94 L Oxygen Delivery Method Room Air Lab Data Lab results reviewed: Yes I reviewed the patient's lab results. Labs: Lab Results 07/22/23 17:30: WBC 5.2, RBC 4.13 L, Hgb 12.8 L, Hct 39.5 L, MCV 95.6 H, MCH 30.9, MCHC 32.3, RDW 14.9, Plt Count 161, MPV 8.9, Neut % (Auto) 53.3, Lymph % (Auto) 34.5, [place] % (Auto) 9.1, Eos % (Auto) 2.4, Baso % (Auto) 0.7, Neut # (Auto) 2.8, Lymph # (Auto) 1.8, [place] # (Auto) 0.5, Eos # (Auto) 0.1, Baso # (Auto) 0.0, D-Dimer 0.79 H 07/22/23 17:47: SARS-CoV-2 (PCR) Not detected, Influenza A Untype (PCR) Not detected, Influenza Type B (PCR) Not detected 07/22/23 18:22: Sodium 134 L, Potassium 4.4, Chloride 104, Carbon Dioxide 31 H, Anion Gap 3.4 L, BUN 29 H, Creatinine 2.00 H, Estimated Creat Clear 29, Estimated GFR 33 L, Est GFR ( Amer) 40 L, Glucose 122 H, Calcium 8.4, Total Bilirubin 0.4, AST 66 H, ALT 33, Alkaline Phosphatase 130 H, Troponin I < 0.01, Total Protein 5.9 L, Albumin 2.7 L, Globulin 3.2, Albumin/Globulin Ratio 0.8 L 07/22/23 20:41: Troponin I < 0.01 07/22/23 17:30 07/22/23 18:22 Response Orders (Tests/Meds): ED MEDICATIONS Generic Name Dose Route Start Last Admin Trade Name Meera PRN Reason Stop Dose Admin Acetaminophen 650 mg 07/22/23 22:43 Acetaminophen 325mg Tab PO 08/21/23 22:42 Q4HP PRN Fever or Mild Pain (1-3) Enoxaparin Sodium 40 mg 07/23/23 09:00 Enoxaparin 40mg/0.4ml Syringe SQ 08/22/23 08:59 DAILY MAJOR Lactated Ringer's 1,000 mls @ 50 mls/hr 07/22/23 22:45 Lactated Ringer's 1000 Ml Bag IV 08/21/23 22:44 .Q20H MAJOR Morphine Sulfate 2 mg 07/22/23 22:43 Morphine 2mg/Ml Syringe IV 08/21/23 22:42 Q2HP PRN Severe Pain (7-10) Nicotine 21 mg 07/22/23 22:43 Nicotine 21mg/24hr Patch TD 08/21/23 22:42 DAILYP PRN Nicotine Cravings Ondansetron HCl 4 mg 07/22/23 22:43 Ondansetron 4mg/2ml Vial IV 08/21/23 22:42 Q8HP PRN Nausea Pantoprazole Sodium 40 mg 07/23/23 09:00 Pantoprazole 40mg Tablet PO 08/22/23 08:59 DAILY MAJOR Discontinued Medications Generic Name Dose Route Start Last Admin Trade Name Meera PRN Reason Stop Dose Admin Albuterol/Ipratropium 3 ml 07/22/23 17:25 07/22/23 18:14 Ipratropium/Albuterol 3 Ml Neb IH 07/22/23 17:26 3 ml ONCE ONE Administration Lactated Ringer's 1,000 mls @ 999 mls/hr 07/22/23 17:31 07/22/23 18:13 Lactated Ringer's 1000 Ml Bag IV 07/22/23 18:31 999 mls/hr .Q1H1M ONE Administration Iopamidol 70 ml 07/22/23 20:02 07/22/23 20:02 Iopamidol-370 (76%);100ml Bottle IV 07/22/23 20:03 70 ml ONCE ONE Administration Sodium Chloride 10 ml 07/22/23 20:02 07/22/23 20:02 Sodium Chloride 0.9% 10ml Syr (Rad Only) IV 07/22/23 20:03 10 ml ONCE ONE Administration Sodium Chloride 50 ml 07/22/23 20:02 07/22/23 20:02 0.9 % Sodium Chloride 50 Ml Vial IV 07/22/23 20:03 50 ml ONCE ONE Administration ORDERS Category Date Time Status CTA Chest [CT angio chest PE protocol] Stat Cat Scan 07/22/23 18:51 Completed Chest XR -- portable [XR chest portable] Stat Exams 07/22/23 17:25 Completed CBC w/Auto Diff [Complete Blood Count Auto Diff] Stat Lab 07/22/23 17:30 Completed CMP [Comprehensive Metabolic Panel] Stat Lab 07/22/23 18:22 Completed Complete Blood Count Auto Diff AMLAB Lab 07/23/23 06:00 Ordered Comprehensive Metabolic Panel AMLAB Lab 07/23/23 06:00 Ordered D-Dimer Stat Lab 07/22/23 17:30 Completed Magnesium AMLAB Lab 07/23/23 06:00 Ordered Rapid PCR Covid and Flu A/B Stat Lab 07/22/23 17:47 Completed Troponin I Q3H Lab 07/22/23 20:41 Completed Troponin I Q3H Lab 07/22/23 23:30 Ordered Troponin I Stat Lab 07/22/23 18:22 Completed Urinalysis and Microscopic Stat Lab 07/22/23 17:30 Ordered ECG initial [place] Stat Y 07/22/23 17:23 Completed MDM Narrative Medical Decision Narrative: In summary patient is a 68-year-old male who presents to the emergency department for evaluation of initially decreased level of responsiveness and weakness. Patient is is hypotensive but with a normal heart rate upon arrival, and afebrile. Physical exam reveals a slightly diminished breath sounds with an expiratory wheezes at the bilateral bases. Otherwise the remainder of his physical exam is unrevealing. He is alert awake alert oriented but a vague historian. He is mentating appropriately and has no focal neurologic deficits. He was able to transfer himself from an ambulance stretcher to the ER stretcher VS standing and walking to the bed. Did not require assistance. We did a broad workup that did not reveal any specific findings other than an elevated creatinine. Patient remained hypotensive despite crystalloid bolus.. Different ial diagnosis includes ACS versus infection versus sepsis versus dissection versus stroke. Initial workup will be conducted with hematologic labs imaging. Initial interventions include crystalloid bolus DuoNeb. Initial workup reviewed by me shows hematologic labs only significant for an elevated creatinine of 2 above his baseline of 1 and persistently low blood pressure. Upon repeat evaluation still is weak and hypotensive. Given this, I discussed the patient management with hospital medicine who is agreeable for admission <Dalia Merrill MD - Last Filed: 07/22/23 17:46> Vital Signs Vital Signs: 07/22/23 17:14 Temperature 98.9 F Temperature Source Oral Pulse Rate [Right] 77 Respiratory Rate 18 Blood Pressure [Right Arm] 92/52 L Blood Pressure Mean [Right Arm] 65 Blood Pressure Source [Right Arm] Automatic Cuff 02 Sat by Pulse Oximetry 94 L Oxygen Delivery Method Room Air Lab Data Labs: Lab Results 07/22/23 17:30: WBC 5.2, RBC 4.13 L, Hgb 12.8 L, Hct 39.5 L, MCV 95.6 H, MCH 30.9, MCHC 32.3, RDW 14.9, Plt Count 161, MPV 8.9, Neut % (Auto) 53.3, Lymph % (Auto) 34.5, [place] % (Auto) 9.1, Eos % (Auto) 2.4, Baso % (Auto) 0.7, Neut # (Auto) 2.8, Lymph # (Auto) 1.8, [place] # (Auto) 0.5, Eos # (Auto) 0.1, Baso # (Auto) 0.0, D-Dimer 0.79 H 07/22/23 17:47: SARS-CoV-2 (PCR) Not detected, Influenza A Untype (PCR) Not detected, Influenza Type B (PCR) Not detected 07/22/23 18:22: Sodium 134 L, Potassium 4.4, Chloride 104, Carbon Dioxide 31 H, Anion Gap 3.4 L, BUN 29 H, Creatinine 2.00 H, Estimated Creat Clear 29, Estimated GFR 33 L, Est GFR ( Amer) 40 L, Glucose 122 H, Calcium 8.4, Total Bilirubin 0.4, AST 66 H, ALT 33, Alkaline Phosphatase 130 H, Troponin I < 0.01, Total Protein 5.9 L, Albumin 2.7 L, Globulin 3.2, Albumin/Globulin Ratio 0.8 L 07/22/23 20:41: Troponin I < 0.01 Response Orders (Tests/Meds): ED MEDICATIONS Generic Name Dose Route Start Last Admin Trade Name Meera PRN Reason Stop Dose Admin Acetaminophen 650 mg 07/22/23 22:43 Acetaminophen 325mg Tab PO 08/21/23 22:42 Q4HP PRN Fever or Mild Pain (1-3) Enoxaparin Sodium 40 mg 07/23/23 09:00 Enoxaparin 40mg/0.4ml Syringe SQ 08/22/23 08:59 DAILY MAJOR Lactated Ringer's 1,000 mls @ 50 mls/hr 07/22/23 22:45 Lactated Ringer's 1000 Ml Bag IV 08/21/23 22:44 .Q20H MAJOR Morphine Sulfate 2 mg 07/22/23 22:43 Morphine 2mg/Ml Syringe IV 08/21/23 22:42 Q2HP PRN Severe Pain (7-10) Nicotine 21 mg 07/22/23 22:43 Nicotine 21mg/24hr Patch TD 08/21/23 22:42 DAILYP PRN Nicotine Cravings Ondansetron HCl 4 mg 07/22/23 22:43 Ondansetron 4mg/2ml Vial IV 08/21/23 22:42 Q8HP PRN Nausea Pantoprazole Sodium 40 mg 07/23/23 09:00 Pantoprazole 40mg Tablet PO 08/22/23 08:59 DAILY MAJOR Discontinued Medications Generic Name Dose Route Start Last Admin Trade Name Meera PRN Reason Stop Dose Admin Albuterol/Ipratropium 3 ml 07/22/23 17:25 07/22/23 18:14 Ipratropium/Albuterol 3 Ml Neb IH 07/22/23 17:26 3 ml ONCE ONE Administration Lactated Ringer's 1,000 mls @ 999 mls/hr 07/22/23 17:31 07/22/23 18:13 Lactated Ringer's 1000 Ml Bag IV 07/22/23 18:31 999 mls/hr .Q1H1M ONE Administration Iopamidol 70 ml 07/22/23 20:02 07/22/23 20:02 Iopamidol-370 (76%);100ml Bottle IV 07/22/23 20:03 70 ml ONCE ONE Administration Sodium Chloride 10 ml 07/22/23 20:02 07/22/23 20:02 Sodium Chloride 0.9% 10ml Syr (Rad Only) IV 07/22/23 20:03 10 ml ONCE ONE Administration Sodium Chloride 50 ml 07/22/23 20:02 07/22/23 20:02 0.9 % Sodium Chloride 50 Ml Vial IV 07/22/23 20:03 50 ml ONCE ONE Administration ORDERS Category Date Time Status CTA Chest [CT angio chest PE protocol] Stat Cat Scan 07/22/23 18:51 Completed Chest XR -- portable [XR chest portable] Stat Exams 07/22/23 17:25 Completed CBC w/Auto Diff [Complete Blood Count Auto Diff] Stat Lab 07/22/23 17:30 Completed CMP [Comprehensive Metabolic Panel] Stat Lab 07/22/23 18:22 Completed Complete Blood Count Auto Diff AMLAB Lab 07/23/23 06:00 Ordered Comprehensive Metabolic Panel AMLAB Lab 07/23/23 06:00 Ordered D-Dimer Stat Lab 07/22/23 17:30 Completed Magnesium AMLAB Lab 07/23/23 06:00 Ordered Rapid PCR Covid and Flu A/B Stat Lab 07/22/23 17:47 Completed Troponin I Q3H Lab 07/22/23 20:41 Completed Troponin I Q3H Lab 07/22/23 23:30 Ordered Troponin I Stat Lab 07/22/23 18:22 Completed Urinalysis and Microscopic Stat Lab 07/22/23 17:30 Ordered ECG initial [place] Stat Y 07/22/23 17:23 Completed ECG Data Tracing #1: Attestation: I reviewed this ECG and interpreted as documented below: ECG Narrative: Normal rate, regular rhythm, no significant ST segment elevations, normal sinus rhythm. ECG initial impression date: 07/22/23 ECG initial impression time: 17:46
[2023-07-22 17:42] LABS: Basophils % 0.7 % (0.1-2.0); Eosinophils # 0.1 K/mm3 (0.0-0.4); Eosinophils % 2.4 % (0.1-12.0); Hematocrit 39.5 % (42.0-52.0); Hemoglobin 12.8 g/dL (14.1-18.0); Lymphocytes # 1.8 K/mm3 (0.7-4.5); Lymphocytes % 34.5 % (10-50); Mean Corpuscular HGB Conc 32.3 g/dL (31.8-35.4); Mean Corpuscular Hemoglobin 30.9 pg (27.0-31.2); Mean Corpuscular Volume 95.6 fl (80-94); Mean Platelet Volume 8.9 fl (7.4-10.4); Monocytes # 0.5 K/mm3 (0.1-1.0); Monocytes % 9.1 % (1.7-9.3); Neutrophils # 2.8 K/mm3 (1.8-7.8); Neutrophils % 53.3 % (37.0-80.0); Platelet Count 161 K/mm3 (142-424); Red Blood Count 4.13 M/mm3 (4.60-6.20); Red Cell Distribution Width 14.9 % (11.5-17.5); White Blood Count 5.2 K/mm3 (4.8-10.8)
[2023-07-22 17:51] LABS: D-Dimer 0.79 ug/mL (0.0-0.5)
[2023-07-22 18:10] LABS: Coronavirus 19, PCR Not Detected (NotDetected); Influenza A, PCR Not Detected (NotDetected); Influenza B, PCR Not Detected (NotDetected)
[2023-07-22] MEDS: LACTATED RINGERS 1000ML 1,000 ML 999 ML IV (18:13)
--- NOTE | 2023-07-22 18:13 | PC.NURSE ---
Rounded on pt to see if they needed anything. Advised them of the emergency we had at the time. they advised that there were no needs at this time
[2023-07-22] MEDS: IPRATROPIUM/ALBUTEROL 3 ML NEB IH (18:14)
--- NOTE | 2023-07-22 18:51 | CT_ITS ---
PROCEDURE INFORMATION: Exam: CTA Chest With Contrast Exam date and time: 07/22/2023 7:55 PM Age: 68 years old Clinical indication: Other: Elevated d dimer; Additional info: Hypotension, elevated d-dimer TECHNIQUE: Imaging protocol: Computed tomographic angiography of the chest with contrast. Exam focused on the arteries. 3D rendering (Not supervised by radiologist): MIP and/or 3D reconstructed images were created by the technologist. Radiation optimization: All CT scans at this facility use at least one of these dose optimization techniques: automated exposure control; mA and/or kV adjustment per patient size (includes targeted exams where dose is matched to clinical indication); or iterative reconstruction. Contrast material: ISOVUE; Contrast volume: 70 ml; Contrast route: INTRAVENOUS (IV); COMPARISON: CT ANGIO CHEST PE PROTOCOL 04/15/2023 3:[address] chest 07/01/2023 FINDINGS: Pulmonary arteries: Normal. No pulmonary emboli. Aorta: Unremarkable. No aortic aneurysm. No aortic dissection. Lungs: A 7 mm subpleural nodule seen in the lateral right lower lobe on image [address] of 07/01/2023 but previously measured [address] of 11/28/2022 and 08/11/2022. Stable 3 mm nodule posterior right lower lobe on image 81. A 14 mm cavitary nodule in the right lung apex on axial image 26 stable dating back to 08/11/2022. Stable 7 mm nodule in the lateral left upper lobe on image 98. A 7 x 5 mm nodule superomedial left lower lobe on image 52 which is unchanged dating back to 02/24/2023 but has developed in the interval since 11/28/2022. Fibro atelectatic changes in the left lung apex with associated 7 mm nodule posteriorly on image 21 and 7 mm nodule posteriorly and laterally on image 26 stable dating back to 08/11/2022. Extensive emphysematous changes redemonstrated. Lung faith otherwise clear. Pleural spaces: Unremarkable. No pneumothorax. No pleural effusion. Heart: Unremarkable. No cardiomegaly. No pericardial effusion. Coronary arteries: Moderate coronary artery calcifications suggesting coronary artery disease. Lymph nodes: Interval development of mildly enlarged mediastinal nodes in the AP window subcarinal region since recent CT of 07/01/2023. Bones/joints: A acute versus subacute mild superior endplate compression fracture of the T12 vertebra noted. This is a new finding compared to the CT of 07/01/2023 Soft tissues: Unremarkable. IMPRESSION: 1. No evident PE. 2. Interval development of a acute versus subacute superior endplate compression fracture of T12. 3. A possible increasing 7 mm subpleural nodule posterolateral right lower lobe compared to older CTs of 11/28/2022. This may be a benign nodule but a developing primary lung tumor can not be excluded. Advise clinical assessment and follow-up. Consider follow-up CT in 3 to 6 months to assess for further change or 2 ensure stability. If stable at that time the continued follow-up advised. 4. Stable 14 mm cavitary nodule in the right lung apex and other additional bilateral lung nodules as noted above. These can be reassessed on follow-up. 5. Interval development of mild mediastinal lymphadenopathy can be reassessed on follow-up as well. 6. Moderate coronary artery calcifications suggesting coronary artery disease. 7. Severe emphysematous changes. COMMENTS: The presence of pulmonary emphysema on CT is an independent risk factor for lung cancer. In the absence of a history or active diagnosis of lung cancer, it is recommended that this patient with emphysema be evaluated for enrollment in a low dose CT lung cancer screening program.
[2023-07-22 19:13] LABS: Chloride 104 mmol/L (98-107); Potassium 4.4 mmoL/L (3.5-5.1); Sodium 134 mmol/L (136-145)
[2023-07-22 19:15] LABS: Blood Urea Nitrogen 29 mg/dl (9-20); Creatinine Clearance Estimated 29 mL/min (50-200); Estimated Glomerular Filt Rate 33 ml/min (>60); GFR (African American) 40 ML/MIN (>60)
[2023-07-22 19:16] LABS: Alanine Aminotransferase 33 U/L (12-78); Albumin Level 2.7 g/dl (3.5-5.0); Albumin/Globulin Ratio 0.8 (1.1-1.8); Alkaline Phosphatase 130 U/L (38-126); Anion Gap 3.4 mEq/L (5-15); Aspartate Amino Transferase 66 U/L (17-59); Bilirubin,Total 0.4 mg/dl (0.2-1.3); Calcium 8.4 mg/dl (8.4-10.2); Carbon Dioxide 31 mmol/L (22.0-30.0); Globulin 3.2 g/dL (1.3-3.2); Glucose 122 mg/dl (74-100); Total Protein,Serum 5.9 g/dl (6.3-8.2)
[2023-07-22 19:40] LABS: Troponin I < 0.01 ng/ml (0.00-0.034)
--- NOTE | 2023-07-22 19:56 | PC.NURSE ---
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 no issues flushing 20cc's NS.
--- NOTE | 2023-07-22 19:59 | PC.NURSE ---
patient gone to CT at this time.
[2023-07-22] MEDS: IOPAMIDOL-370 (76%);100ML BOTTLE 70 ML IV (20:02)
[2023-07-22] MEDS: 0.9 % SODIUM CHLORIDE 50 ML VIAL IV (20:02)
[2023-07-22] MEDS: SODIUM CHLORIDE 0.9% 10ML SYR (RAD ONLY) 10 ML IV (20:02)
--- NOTE | 2023-07-22 20:02 | PC.NURSE ---
patient back in room at this time.
[2023-07-22 21:12] LABS: Troponin I < 0.01 ng/ml (0.00-0.034)
--- NOTE | 2023-07-22 22:22 | PC.NURSE ---
o/p with Hospitalist at this time.
--- NOTE | 2023-07-22 22:45 | EXP.HP ---
History of Present Illness *Admission Date: 07/22/23 *Reason for visit:: multiples falls. unable to care for himself *History of present illness: This is a 68-year-old male with a PMHx of hypertension, type 2 diabetes, CKD, frequent falls, COPD, colon cancer, prior history of alcohol abuse, and extensive smoking history presenting to the emergency department for evaluation of what was reported to be decreased level of consciousness and weakness. Patient is a poor historian, most data collected form ED and EMS report. Patient was admitted to the hospital in May for altered mental status and was subsequently discharged to nursing facility for rehabilitation. Readmitted on June for similar conditions and discharged nursing facility. Today Patient presented from an senior living for evaluation. On arrival patient is awake alert and oriented and appropriate however he seems to be a vague historian and can only state to me that he has felt bad for 2 days . with unspecific symptoms. No abdominal pain, changes in bowel movements, or other concerns. He does note that he has not been able to eat or drink very much and has been very nauseated, and he also has been feeling short of air and having chest pain. Admitted for management and treatment. [facility] Disclaimer: The information contained in this section may have been updated after the patient was seen, as this information can be updated by other users. Medical History (Updated 07/23/23 @ 06:31 by Jun Martinez APRN) Abnormal computerized axial tomography of chest Acute alcoholic pancreatitis Acute hyperkalemia Acute pain of left hip Acute pancreatitis Acute renal failure Urfgc-jp-qgcboia kidney injury Adult failure to thrive NAPOLEON (acute kidney injury) NAPOLEON (acute kidney injury) Alcohol abuse Alcohol withdrawal Alcoholic pancreatitis Alcoholism Altered mental status Anxiety Arthritis Asthma Cavitary lesion of lung Chronic alcohol abuse Chronic pancreatitis Chronic pancreatitis due to chronic alcoholism CKD (chronic kidney disease) Colon cancer COPD (chronic obstructive pulmonary disease) COPD (chronic obstructive pulmonary disease) COPD mixed type COVID COVID Depression Diabetes mellitus, type 2 Dyspnea on exertion Fall Frequent falls GERD (gastroesophageal reflux disease) History of gastroesophageal reflux (GERD) HTN (hypertension) Hx of malignant neoplasm of colon Hyperlipidemia Hypertension Hypomagnesemia Hyponatremia Hyponatremia Illiteracy Irritable bowel syndrome (IBS) Lung abscess Macrocytic anemia Neuropathy Pneumonia Pneumonia Polysubstance abuse Prostate cancer Protein-calorie malnutrition, mild Protein-calorie malnutrition, moderate Pulmonary emphysema Smoking greater than 30 pack years T12 compression fracture Tobacco abuse Tobacco use disorder Transaminitis Type 2 diabetes mellitus Surgical History History of colon resection History of colonoscopy Hx of prostatectomy S/P TURP Family History Mother Family history of diabetes mellitus type II Social History (Updated 07/22/23 @ 23:27 by Daksha Isaac RN) Smoking Status: Current every day smoker tobacco type: cigarettes packs per day: 1 years smoked: 54 quit status: has quit before second hand exposure: Yes alcohol intake: former counseling provided: provider counseling substance use type: marijuana current occupational status: disabled Travel in the last 8 weeks: None household members: none housing: apartment lives independently: Yes (home health comes twice a week ) marital status: current occupational exposures/hazards: No caffeine: Yes (coffee) physical activity: none do you feel safe at home: Yes Review of Systems Review of Systems Review of systems:: pertinent systems reviewed and negative unless documented below Meds Home Medications and Allergies Home Medications Medication Instructions Recorded Confirmed Type fluticasone fur. 200 mcg-umeclid 1 inh inhalation DAILY 05/06/23 07/22/23 History 62.5 mcg-vilant 25 mcg inhalat.powder (Trelegy Ellipta) levocetirizine 5 mg tablet 5 mg PO HS 05/06/23 07/22/23 History uxlvva-xjojflcc-pkkgahy 1 cap PO BIDWMEAL 05/06/23 07/22/23 History 10,000-32,000-42,000 unit capsule,delayed rel (Zenpep) magnesium oxide 400 mg (241.3 mg 400 mg PO BID 05/06/23 07/22/23 History magnesium) tablet simvastatin 40 mg tablet 40 mg PO HS 05/06/23 07/22/23 History thiamine HCl (vitamin B1) 100 mg 100 mg PO DAILY 05/06/23 07/22/23 History tablet linagliptin 5 mg tablet (Tradjenta) 5 mg PO DAILY Diabetes 05/07/23 07/22/23 History multivitamin 1 tab PO DAILY Supplement 07/01/23 07/22/23 History nicotine 14 mg/24 hr daily 14 mg topical DAILY 07/01/23 07/22/23 History transdermal patch pregabalin 50 mg capsule 50 mg PO BID 07/01/23 07/22/23 History quetiapine 100 mg tablet 100 mg PO BID 07/02/23 07/22/23 History acetaminophen 500 mg tablet 500 mg PO Q4H PRN pain/fever 07/22/23 07/22/23 History dextromethorphan-guaifenesin 10 10 ml PO Q4H PRN Cough 07/22/23 07/22/23 History mg-100 mg/5 mL oral liquid albuterol sulfate 90 mcg/actuation 2 inh inhalation QID 30 days #0 07/23/23 07/22/23 Rx aerosol inhaler (Ventolin HFA) grams carvedilol 25 mg tablet 12.5 mg PO BID 30 days #30 tabs 07/23/23 07/22/23 Rx New Prescriptions to Start Prescriptions: Allergies Allergy/AdvReac Type Severity Reaction Status Date / Time No Known Allergies Allergy Verified 03/31/23 14:38 Exam Data for Last 24 hours Vital signs and Labs for Last 24 Hours: Temp Pulse Resp BP Pulse Ox O2 Del Method 98.9 F 77 18 92/52 L 94 L Room Air 07/22/23 17:14 07/22/23 17:14 07/22/23 17:14 07/22/23 17:14 07/22/23 17:14 07/22/23 17:14 Laboratory Results - last 24 hr 07/22/23 17:30: WBC 5.2, RBC 4.13 L, Hgb 12.8 L, Hct 39.5 L, MCV 95.6 H, MCH 30.9, MCHC 32.3, RDW 14.9, Plt Count 161, MPV 8.9, Neut % (Auto) 53.3, Lymph % (Auto) 34.5, [place]t % (Auto) 9.1, Eos % (Auto) 2.4, Baso % (Auto) 0.7, Neut # (Auto) 2.8, Lymph # (Auto) 1.8, [place]t # (Auto) 0.5, Eos # (Auto) 0.1, Baso # (Auto) 0.0, D-Dimer 0.79 H 07/22/23 17:47: SARS-CoV-2 (PCR) Not detected, Influenza A Untype (PCR) Not detected, Influenza Type B (PCR) Not detected 07/22/23 18:22: Sodium 134 L, Potassium 4.4, Chloride 104, Carbon Dioxide 31 H, Anion Gap 3.4 L, BUN 29 H, Creatinine 2.00 H, Estimated Creat Clear 29, Estimated GFR 33 L, Est GFR ( Amer) 40 L, Glucose 122 H, Calcium 8.4, Total Bilirubin 0.4, AST 66 H, ALT 33, Alkaline Phosphatase 130 H, Troponin I < 0.01, Total Protein 5.9 L, Albumin 2.7 L, Globulin 3.2, Albumin/Globulin Ratio 0.8 L 07/22/23 20:41: Troponin I < 0.01 I & O for Last 24 hours: Intake & Output 07/19/23 07/20/23 07/21/23 07/22/23 23:59 23:59 23:59 23:59 Weight 57.606 kg Constitutional Constitutional: no acute distress, thin, chronically ill appearing and cooperative *Routine HEENT Exam Head: Present normocephalic Eye: Present EOMI and PERRL ENT: Present mucous membranes moist *Routine Neck Exam Neck: Present supple; Absent lymphadenopathy *Routine Respiratory Exam Respiratory: Present CTA bilaterally *Routine Cardiovascular Exam Cardiovascular: Present RRR *Routine Abdominal Exam Abdominal: Present soft and normoactive bowel sounds; Absent tenderness *Routine Rectal Exam Rectal:: deferred *Routine Genitalia Exam Genitalia:: deferred *Routine Extremities Exam Extremities: Absent cyanosis, clubbing or edema *Routine Skin Exam Skin: Present warm; Absent rash *Routine Neurological Exam Neurological: Present alert, altered mental status and moving all extremities Comments: Akathisia; hyperreflexia in patellar tendons H&P: Result Imaging and Cardiology EKG: Status: image reviewed by me and Preliminary report Chest x-ray: Status: image reviewed by me, Preliminary report and final report CT scan - chest: Status: image reviewed by me, Preliminary report and final report Assessment and Plan *Assessment and plan (1) Gbiyj-nm-infhyab kidney injury: Status: Inactive Qualifiers: Acute renal failure type: unspecified Chronic kidney disease stage: stage 3 (moderate) Chronic kidney disease stage 3 subtype: stage 3a (GFR 45-59) Qualified Code(s): N17.9 - Acute kidney failure, unspecified; N18.31 - Chronic kidney disease, stage 3a Category: Medical Code(s): N17.9 - Acute kidney failure, unspecified; N18.9 - Chronic kidney disease, unspecified (2) HTN (hypertension): Status: Inactive Qualifiers: Hypertension type: essential hypertension Qualified Code(s): I10 - Essential (primary) hypertension Category: Medical Code(s): I10 - Essential (primary) hypertension (3) COPD (chronic obstructive pulmonary disease): Status: Inactive Qualifiers: COPD type: unspecified COPD Qualified Code(s): J44.9 - Chronic obstructive pulmonary disease, unspecified Category: Medical Code(s): J44.9 - Chronic obstructive pulmonary disease, unspecified (4) Type 2 diabetes mellitus: Status: Inactive Qualifiers: Diabetes mellitus complication detail: with polyneuropathy Diabetes mellitus complication status: with neurologic complications Diabetes mellitus senior care insulin use: without vermin exterminator use Qualified Code(s): E11.42 - Type 2 diabetes mellitus with diabetic polyneuropathy Category: Medical Code(s): E11.9 - Type 2 diabetes mellitus without complications (5) Tobacco abuse: Status: Inactive Category: Medical Code(s): Z72.0 - Tobacco use (6) T12 compression fracture: Status: Inactive Qualifiers: Encounter type: subsequent encounter Fracture healing: with routine healing Qualified Code(s): S22.080D - Wedge compression fracture of T11-T12 vertebra, subsequent encounter for fracture with routine healing Category: Medical Code(s): S22.080A - Wedge compression fracture of T11-T12 vertebra, initial encounter for closed fracture Plan 67-year-old male with a PMHx of hypertension, type 2 diabetes, CKD, frequent falls, COPD, colon cancer, prior history of alcohol abuse, and extensive smoking history presenting to the emergency department for evaluation with concern for frequent falls. On arrival patient presented c/o pain on his right hip. head to toe imaging was obtained. There is a concern for T12 compression fracture with undetermined age. Rest of the exam negative for acute trauma. Labs significant for acute kidney injury, With elevated creatinine of 2.6. Patient visible dehydration. Findings discussed with the ER for admission. Plan as follows: -Acute on chronic kidney injury, suspected prerenal. Likely secondary to dehydration: Admit patient for medical services. Dispo MedSurg Continue IV hydration Encourage increased p.o. patient is able to eat and swallow normally Bedside swallow test by nurse Monitor renal output Avoid nephrotoxic medication Repeat CMP in the morning History of hypertension COPD and diabetes: Conditions are reviewed. Resume home medication sliding scale BS before meals Tobacco user: on nicotine patch -Subacute T12 fracture. pain management. PT/OT consult CM will be consulted after therapy recommendation for children's nursery assistant with D/c plan. Lovenox for DVT prophylaxis. Protonix for GERD and GI bleed protection Full code Rounded on patient after nurse practitioner. Personally examined and interviewed patient. Agree with exam findings and care plan as documented.
--- NOTE | 2023-07-22 22:56 | PC.NURSE ---
called House for Admission at this time.
--- NOTE | 2023-07-22 22:58 | PC.NURSE ---
OBSERVATION ADMISSION 215 WITH DX OF NAPOLEON AND GENERALIZED WEAKNESS TO SERVICE OF THE HOSPITALIST.
--- NOTE | 2023-07-22 23:11 | PC.NURSE ---
report given to CANDIS Blas on second floor.
[2023-07-22 23:14] VITALS: BP 80/55; PULSE 72; RESP 15; TEMP 36.8; O2SAT 98
[2023-07-22 23:19] VITALS: O2SAT 93
--- NOTE | 2023-07-22 23:19 | PC.NURSE ---
pt arrived to floor at this time
[2023-07-22 23:30] VITALS: BP 80/55; PULSE 73; RESP 15; O2SAT 93
[2023-07-22] MEDS: MORPHINE 2MG/ML SYRINGE 2 MG IV (23:44)
[2023-07-22] MEDS: NICOTINE 21MG/24HR PATCH 21 MG TD (23:44)
[2023-07-22] MEDS: ONDANSETRON 4MG/2ML VIAL 4 MG IV (23:44)
[2023-07-22] MEDS: LACTATED RINGERS 1000ML 1,000 ML 50 ML IV (23:45)
[2023-07-22] MEDS: GUAIFENESIN/DEXTROMETHORPHAN 200MG/20MG 10ML UDC 10 ML PO (23:57)
[2023-07-22 23:58] LABS: Microscopic, Urine URINE MICROSCOPIC (MICROSCOPIC)
[2023-07-23] VITALS: BP 104/59; PULSE 71; RESP 16; TEMP 36.6; O2SAT 95
[2023-07-23 00:13] VITALS: PULSE 67; PULSE 72
[2023-07-23] MEDS: IPRATROPIUM/ALBUTEROL 3 ML NEB IH ×2 (00:13→06:05)
[2023-07-23 00:14] LABS: Troponin I < 0.01 ng/ml (0.00-0.034)
[2023-07-23 00:17] LABS: Appearance,Urine CLEAR (Clear); Bilirubin,Urine Negative (Negative); Blood, Urine Negative (Negative); Color,Urine YELLOW (Yellow); Glucose,Urine (UA) Negative (Negative); Ketones,Urine Negative (Negative); Leukocyte Esterase,Urine Negative (Negative); Nitrate,Urine Negative (Negative); PH,Urine 5.5 (5.0-8.5); Protein,Urine Negative (Negative); Specific Gravity, Urine 1.015 (1.005-1.030); Urobilinogen,Urine 0.2 EU/dl (0.2)
--- NOTE | 2023-07-23 00:23 | PC.NURSE ---
Nicotine 21mg patch applied to right shoulder, placed large tegaderm over patch due to pt complaint of patches always falling off
[2023-07-23 00:24] LABS: RBC,Urine Occasional #/hpf (0-3); Squamous Epithelial Cell,Urine Occasional #/hpf (0-5)
--- NOTE | 2023-07-23 00:29 | PC.NURSE ---
Pt is alert an oriented and states that he can not read or write, Pt states that he wishes to be a DNR. DNR order explained and education given, nurse x2 verified and signed order.
[2023-07-23 04:00] VITALS: BP 91/60; PULSE 76; RESP 18; TEMP 36.5; O2SAT 96; BMI 20.2
--- NOTE | 2023-07-23 04:57 | PC.NURSE ---
Pt remains alert and oriented, currently tolerating fluids well and has rested well this shift. Pt complained of pain, nausea and coughing upon admission, and was treated per MAR, pt has offered no complaints since. Pt continues to have hypotension continueing to monitor BP Q4HR.
[2023-07-23 06:05] VITALS: PULSE 80; PULSE 83
[2023-07-23 06:40] LABS: Eosinophils # 0.2 K/mm3 (0.0-0.4); Hematocrit 33.4 % (42.0-52.0); Monocytes # 0.3 K/mm3 (0.1-1.0)
[2023-07-23 06:42] LABS: POC Glucose,Bedside 122 (70-110)
[2023-07-23 06:47] LABS: Chloride 108 mmol/L (98-107); Sodium 135 mmol/L (136-145)
[2023-07-23 06:48] LABS: Basophils % 0.8 % (0.1-2.0); Eosinophils % 4.6 % (0.1-12.0); Lymphocytes # 1.6 K/mm3 (0.7-4.5); Lymphocytes % 46.8 % (10-50); Mean Corpuscular HGB Conc 31.4 g/dL (31.8-35.4); Mean Corpuscular Hemoglobin 30.3 pg (27.0-31.2); Mean Corpuscular Volume 96.4 fl (80-94); Mean Platelet Volume 8.6 fl (7.4-10.4); Monocytes % 9.7 % (1.7-9.3); Neutrophils # 1.3 K/mm3 (1.8-7.8); Neutrophils % 38.1 % (37.0-80.0); Platelet Count 148 K/mm3 (142-424); Red Blood Count 3.47 M/mm3 (4.60-6.20); White Blood Count 3.5 K/mm3 (4.8-10.8)
[2023-07-23 06:49] LABS: Alanine Aminotransferase 26 U/L (12-78); Blood Urea Nitrogen 24 mg/dl (9-20); Creatinine Clearance Estimated 38 mL/min (50-200); Estimated Glomerular Filt Rate 43 ml/min (>60); GFR (African American) 52 ML/MIN (>60)
[2023-07-23 06:50] LABS: Albumin Level 1.9 g/dl (3.5-5.0); Albumin/Globulin Ratio 0.7 (1.1-1.8); Alkaline Phosphatase 107 U/L (38-126); Aspartate Amino Transferase 48 U/L (17-59); Calcium 7.8 mg/dl (8.4-10.2); Carbon Dioxide 31 mmol/L (22.0-30.0); Globulin 2.6 g/dL (1.3-3.2); Glucose 88 mg/dl (74-100); Magnesium 1.6 mg/dl (1.6-2.3); Total Protein,Serum 4.5 g/dl (6.3-8.2)
[2023-07-23 06:53] LABS: Hemoglobin 10.5 g/dL (14.1-18.0)
[2023-07-23 07:10] LABS: Bilirubin,Total 0.1 mg/dl (0.2-1.3)
--- NOTE | 2023-07-23 07:31 | HMH.PHAINT1 ---
Pharmacy Intervention Comments: Reviewed home medication list using external fill history and spoke with patient at bedside.
[2023-07-23 07:40] VITALS: BP 113/64; PULSE 77; RESP 18; TEMP 36.7; O2SAT 91
--- NOTE | 2023-07-23 07:41 | SW/DCPLANNER ---
This patient currently resides at [facility] level of care. I will continue to follow up w/ Chanda at [facility] until patient is medically stable for discharge. Discharge date is unknown at this time.
[2023-07-23 08:00] VITALS: O2SAT 98
[2023-07-23 08:32] VITALS: BMI 20.2
--- NOTE | 2023-07-23 08:36 | DIET.NUTRFU ---
lives at [facility], spoke to nurse and he is tolerating a CAROLYN diet there with good intake 75-100% up till last couple days. wt is stable since last admit in 03/27
--- NOTE | 2023-07-23 09:44 | HMH.PTEV ---
Physical Therapy Evaluation Rehab PT IP Evaluation Start: 07/23/23 06:32 Freq: ONCE Status: Active Protocol: Document 07/23/23 09:34 REMINGTON (Rec: 07/23/23 09:44 REMINGTON [email or web address]) Subjective/History History History Per H&P: This is a 68-year-old male with a PMHx of hypertension, type 2 diabetes, CKD, frequent falls, COPD, colon cancer, prior history of alcohol abuse , and extensive smoking history presenting to the emergency department for evaluation of what was reported to be decreased level of consciousness and weakness . Patient is a poor historian, most data collected form ED and EMS report. Patient was admitted to the hospital in May for altered mental status and was subsequently discharged to nursing facility for rehabilitation. Readmitted on June for similar conditions and discharged nursing facility. Today Patient presented from an custodial for evaluation . On arrival patient is awake alert and oriented and appropriate however he seems to be a vague historian and can only state to me that he has felt bad for 2 days . with unspecific symptoms. No abdominal pain, changes in bowel movements, or other concerns. He does note that he has not been able to eat or drink very much and has been very nauseated, and he also has been feeling short of air and having chest pain. Admitted for management and treatment. Subjective Subjective Pt agreeable to demonstrate functional mobility for PT. Prior to admission pt was living at a custodial and was IND with functional mobility without RW. New diagnosis of cancer in past 12 No months? Rehab PT IP Eval Objective Appearance Patient Behavior Appropriate,Cooperative Patient Orientation Person Difficulty following instructions none Speech Pattern Clear Ambulation Patient Able to Ambulate Yes Ambulation Observation Ambulation Distance (feet) 60 Ambulation Assistive Device None Ambulation Ability Supervision/Stand by Transfers Bed Transfer Ability Supervision/Stand by Sit to Stand Bed Transfer Ability Supervision/Stand by Rehab PT IP prob,goals,plan Problems Date of Evaluation: 07/23/23 Rehab Potential Rehab Potential Innapropriate for Skilled Therapy Discharge Plan PT Discharge Plan Pt safe to d/c to previous living situation when deemed medically necessary d/t current level of mobility, living environment, and available support. Pt demo'd safe ambulation with SUP d/t IV pole management. Pt not appropriate for skilled acute care PT d/t current level of functional mobility. Eval Complexity Eval Charge Codes 79484 - High Complexity PHYSICIAN CERTIFICATION: I certify the specified therapy services for Noah Rivero JR are required, authorized, and reviewed every 30 days.
--- NOTE | 2023-07-23 09:45 | EXP.DC.SUM ---
General Admission date:: 07/22/23 Discharge date: 07/23/23 HPI HPI HPI: This is a 68-year-old male with a PMHx of hypertension, type 2 diabetes, CKD, frequent falls, COPD, colon cancer, prior history of alcohol abuse, and extensive smoking history presenting to the emergency department for evaluation of what was reported to be decreased level of consciousness and weakness. Patient is a poor historian, most data collected form ED and EMS report. Patient was admitted to the hospital in May for altered mental status and was subsequently discharged to nursing facility for rehabilitation. Readmitted on June for similar conditions and discharged nursing facility. Today Patient presented from an [facility] for evaluation. On arrival patient is awake alert and oriented and appropriate however he seems to be a vague historian and can only state to me that he has felt bad for 2 days . with unspecific symptoms. No abdominal pain, changes in bowel movements, or other concerns. He does note that he has not been able to eat or drink very much and has been very nauseated, and he also has been feeling short of air and having chest pain. Admitted for management and treatment. Hospital Course Hospital Course Hospital Course: 67-year-old male with a PMHx of hypertension, type 2 diabetes, CKD, frequent falls, COPD, colon cancer, prior history of alcohol abuse, and extensive smoking history presenting to the emergency department for evaluation with concern for frequent falls. On arrival patient presented c/o pain on his right hip. head to toe imaging was obtained. There is a concern for T12 compression fracture with undetermined age. Rest of the exam negative for acute trauma. Labs significant for acute kidney injury, With elevated creatinine of 2.0. Patient visible dehydration. Treated with IV fluids. Tolerating p.o. intake for breakfast. Given clinical improvement, stable for discharge back to nursing facility. Adjustments made to medications. Problems addressed as follows: -Acute on chronic kidney injury, suspected prerenal. Likely secondary to dehydration: Patient admitted for dehydration and [place]. Creatinine baseline between 1.2-1.6. Elevated at 2.0 on admission. Improved to 1.6 by the following morning. BUN 24. Tolerating p.o. fluids. Making adequate urine. Patient appears to be at baseline level of function with improvement in kidney function. Will discontinue patient's irbesartan given normal and and risk for further [place]. Stable to discharge back to nursing facility. Recommend repeat CBC, CMP, magnesium in 1 week to monitor electrolytes and kidney function. History of hypertension COPD and diabetes: Conditions are reviewed. Will continue carvedilol creased dose blood pressure woke during the patient. Stopping start. Continue albuterol, recommend scheduling 4 times a day as opposed to as needed Zoom home medication is for her mood neuropathy, diabetes. No other changes at this time. Tobacco user: nicotine patch -Subacute T12 fracture: PT and OT evaluated, patient independently mobile. Recommend continuing therapy at nursing facility. Exam Data for Last 24 hours Vital signs and Labs for Last 24 Hours: Temp Pulse Resp BP Pulse Ox O2 Del Method 98.1 F 77 18 113/64 91 L Room Air 07/23/23 07:40 07/23/23 07:40 07/23/23 07:40 07/23/23 07:40 07/23/23 07:40 07/23/23 08:59 Laboratory Results - last 24 hr 07/22/23 17:30: WBC 5.2, RBC 4.13 L, Hgb 12.8 L, Hct 39.5 L, MCV 95.6 H, MCH 30.9, MCHC 32.3, RDW 14.9, Plt Count 161, MPV 8.9, Neut % (Auto) 53.3, Lymph % (Auto) 34.5, [place] % (Auto) 9.1, Eos % (Auto) 2.4, Baso % (Auto) 0.7, Neut # (Auto) 2.8, Lymph # (Auto) 1.8, [place] # (Auto) 0.5, Eos # (Auto) 0.1, Baso # (Auto) 0.0, D-Dimer 0.79 H 07/22/23 17:47: SARS-CoV-2 (PCR) Not detected, Influenza A Untype (PCR) Not detected, Influenza Type B (PCR) Not detected 07/22/23 18:22: Sodium 134 L, Potassium 4.4, Chloride 104, Carbon Dioxide 31 H, Anion Gap 3.4 L, BUN 29 H, Creatinine 2.00 H, Estimated Creat Clear 29, Estimated GFR 33 L, Est GFR ( Amer) 40 L, Glucose 122 H, Calcium 8.4, Total Bilirubin 0.4, AST 66 H, ALT 33, Alkaline Phosphatase 130 H, Troponin I < 0.01, Total Protein 5.9 L, Albumin 2.7 L, Globulin 3.2, Albumin/Globulin Ratio 0.8 L 07/22/23 20:41: Troponin I < 0.01 07/22/23 23:40: Troponin I < 0.01 07/22/23 23:43: Urine Color Yellow, Urine Appearance Clear, Urine pH 5.5, Ur Specific [place] 1.015, Urine Protein Negative, Urine Glucose (UA) Negative, Urine Ketones Negative, Urine Blood Negative, Urine Nitrate Negative, Urine Bilirubin Negative, Urine Urobilinogen 0.2, Ur Leukocyte Esterase Negative, Urine RBC Occasional, Urine WBC None, Ur Squamous Epith Cells Occasional, Urine Bacteria None 07/23/23 06:07: WBC 3.5 L D, RBC 3.47 L, Hgb 10.5 L D, Hct 33.4 L, MCV 96.4 H, MCH 30.3, MCHC 31.4 L, RDW 15.0, Plt Count 148, MPV 8.6, Neut % (Auto) 38.1, Lymph % (Auto) 46.8, [place] % (Auto) 9.7 H, Eos % (Auto) 4.6, Baso % (Auto) 0.8, Neut # (Auto) 1.3 L, Lymph # (Auto) 1.6, [place] # (Auto) 0.3, Eos # (Auto) 0.2, Baso # (Auto) 0.0, Sodium 135 L, Potassium 4.0, Chloride 108 H, Carbon Dioxide 31 H, Anion Gap 0.0 L, BUN 24 H, Creatinine 1.60 H, Estimated Creat Clear 38, Estimated GFR 43 L, Est GFR ( Amer) 52 L D, Glucose 88 D, Calcium 7.8 L, Magnesium 1.6, Total Bilirubin 0.1 L, AST 48 D, ALT 26, Alkaline Phosphatase 107, Total Protein 4.5 L, Albumin 1.9 L D, Globulin 2.6, Albumin/Globulin Ratio 0.7 L 07/23/23 06:35: POC Glucose 122 H I & O for Last 24 hours: Intake & Output 07/20/23 07/21/23 07/22/23 07/23/23 23:59 23:59 23:59 23:59 Intake Total 480 / 480 Output Total 750 / 750 Balance -270 / -270 Weight 57.606 kg 60.6 kg Constitutional Constitutional: no acute distress, thin and chronically ill appearing *Routine HEENT Exam Head: Present normocephalic Eye: Present EOMI and PERRL ENT: Present mucous membranes moist Comments: Bitemporal wasting *Routine Neck Exam Neck: Present supple; Absent lymphadenopathy *Routine Respiratory Exam Respiratory: Present prolonged expiratory phase and wheezes; Absent rhonchi or crackles *Routine Cardiovascular Exam Cardiovascular: Present RRR *Routine Abdominal Exam Abdominal: Present soft and normoactive bowel sounds; Absent tenderness *Routine Extremities Exam Extremities: Absent cyanosis, clubbing or edema *Routine Skin Exam Skin: Present warm; Absent rash *Routine Neurological Exam Neurological: Present alert, normal reflexes and moving all extremities; Absent altered mental status Comments: Oriented to self and place. Decreased sensation in feet. Appears at baseline mentation Results Data Completed and Pending Labs on day of discharge: Labs from last 24 hours 07/23/23 07/23/23 07/22/23 06:35 06:07 23:43 WBC 3.5 L D RBC 3.47 L Hgb 10.5 L D Hct 33.4 L MCV 96.4 H MCH 30.3 MCHC 31.4 L RDW 15.0 Plt Count 148 MPV 8.6 Neut % (Auto) 38.1 Lymph % (Auto) 46.8 [place] % (Auto) 9.7 H Eos % (Auto) 4.6 Baso % (Auto) 0.8 Neut # (Auto) 1.3 L Lymph # (Auto) 1.6 [place] # (Auto) 0.3 Eos # (Auto) 0.2 Baso # (Auto) 0.0 D-Dimer Sodium 135 L Potassium 4.0 Chloride 108 H Carbon Dioxide 31 H Anion Gap 0.0 L BUN 24 H Creatinine 1.60 H Estimated Creat Clear 38 Estimated GFR 43 L Est GFR ( Amer) 52 L D Glucose 88 D POC Glucose 122 H Calcium 7.8 L Magnesium 1.6 Total Bilirubin 0.1 L AST 48 D ALT 26 Alkaline Phosphatase 107 Troponin I Total Protein 4.5 L Albumin 1.9 L D Globulin 2.6 Albumin/Globulin Ratio 0.7 L Urine Color Yellow Urine Appearance Clear Urine pH 5.5 Ur Specific [place] 1.015 Urine Protein Negative Urine Glucose (UA) Negative Urine Ketones Negative Urine Blood Negative Urine Nitrate Negative Urine Bilirubin Negative Urine Urobilinogen 0.2 Ur Leukocyte Esterase Negative Urine RBC Occasional Urine WBC None Ur Squamous Epith Cells Occasional Urine Bacteria None SARS-CoV-2 (PCR) Influenza A Untype (PCR) Influenza Type B (PCR) 07/22/23 07/22/23 07/22/23 23:40 20:41 18:22 WBC RBC Hgb Hct MCV MCH MCHC RDW Plt Count MPV Neut % (Auto) Lymph % (Auto) [place] % (Auto) Eos % (Auto) Baso % (Auto) Neut # (Auto) Lymph # (Auto) [place] # (Auto) Eos # (Auto) Baso # (Auto) D-Dimer Sodium 134 L Potassium 4.4 Chloride 104 Carbon Dioxide 31 H Anion Gap 3.4 L BUN 29 H Creatinine 2.00 H Estimated Creat Clear 29 Estimated GFR 33 L Est GFR ( Amer) 40 L Glucose 122 H POC Glucose Calcium 8.4 Magnesium Total Bilirubin 0.4 AST 66 H ALT 33 Alkaline Phosphatase 130 H Troponin I < 0.01 < 0.01 < 0.01 Total Protein 5.9 L Albumin 2.7 L Globulin 3.2 Albumin/Globulin Ratio 0.8 L Urine Color Urine Appearance Urine pH Ur Specific [place] Urine Protein Urine Glucose (UA) Urine Ketones Urine Blood Urine Nitrate Urine Bilirubin Urine Urobilinogen Ur Leukocyte Esterase Urine RBC Urine WBC Ur Squamous Epith Cells Urine Bacteria SARS-CoV-2 (PCR) Influenza A Untype (PCR) Influenza Type B (PCR) 07/22/23 07/22/23 17:47 17:30 WBC 5.2 RBC 4.13 L Hgb 12.8 L Hct 39.5 L MCV 95.6 H MCH 30.9 MCHC 32.3 RDW 14.9 Plt Count 161 MPV 8.9 Neut % (Auto) 53.3 Lymph % (Auto) 34.5 [place] % (Auto) 9.1 Eos % (Auto) 2.4 Baso % (Auto) 0.7 Neut # (Auto) 2.8 Lymph # (Auto) 1.8 [place] # (Auto) 0.5 Eos # (Auto) 0.1 Baso # (Auto) 0.0 D-Dimer 0.79 H Sodium Potassium Chloride Carbon Dioxide Anion Gap BUN Creatinine Estimated Creat Clear Estimated GFR Est GFR ( Amer) Glucose POC Glucose Calcium Magnesium Total Bilirubin AST ALT Alkaline Phosphatase Troponin I Total Protein Albumin Globulin Albumin/Globulin Ratio Urine Color Urine Appearance Urine pH Ur Specific [place] Urine Protein Urine Glucose (UA) Urine Ketones Urine Blood Urine Nitrate Urine Bilirubin Urine Urobilinogen Ur Leukocyte Esterase Urine RBC Urine WBC Ur Squamous Epith Cells Urine Bacteria SARS-CoV-2 (PCR) Not detected Influenza A Untype (PCR) Not detected Influenza Type B (PCR) Not detected DS: Diagnosis Discharge Diagnosis (1) [id number] kidney injury: Status: Resolved Code(s): N17.9 - Acute kidney failure, unspecified; N18.9 - Chronic kidney disease, unspecified Qualifiers: Acute renal failure type: unspecified Chronic kidney disease stage: stage 3 (moderate) Chronic kidney disease stage 3 subtype: stage 3a (GFR 45-59) Qualified Code(s): N17.9 - Acute kidney failure, unspecified; N18.31 - Chronic kidney disease, stage 3a (2) HTN (hypertension): Status: Chronic Code(s): I10 - Essential (primary) hypertension Qualifiers: Hypertension type: essential hypertension Qualified Code(s): I10 - Essential (primary) hypertension (3) COPD (chronic obstructive pulmonary disease): Status: Chronic Code(s): J44.9 - Chronic obstructive pulmonary disease, unspecified Qualifiers: COPD type: unspecified COPD Qualified Code(s): J44.9 - Chronic obstructive pulmonary disease, unspecified (4) Type 2 diabetes mellitus: Status: Chronic Code(s): E11.9 - Type 2 diabetes mellitus without complications Qualifiers: Diabetes mellitus complication detail: with polyneuropathy Diabetes mellitus complication status: with neurologic complications Diabetes mellitus intermission coordinator insulin use: without intermission coordinator use Qualified Code(s): E11.42 - Type 2 diabetes mellitus with diabetic polyneuropathy (5) Tobacco abuse: Status: Chronic Code(s): Z72.0 - Tobacco use (6) T12 compression fracture: Status: Chronic Code(s): S22.080A - Wedge compression fracture of T11-T12 vertebra, initial encounter for closed fracture Qualifiers: Encounter type: subsequent encounter Fracture healing: with routine healing Qualified Code(s): S22.080D - Wedge compression fracture of T11-T12 vertebra, subsequent encounter for fracture with routine healing Meds Home Medications and Allergies Home Medications Medication Instructions Recorded Confirmed Type fluticasone fur. 200 mcg-umeclid 1 inh inhalation DAILY 05/06/23 07/22/23 History 62.5 mcg-vilant 25 mcg inhalat.powder (Trelegy Ellipta) levocetirizine 5 mg tablet 5 mg PO HS 05/06/23 07/22/23 History tqaqdb-kzfjymgw-qdsjijj 1 cap PO BIDWMEAL 05/06/23 07/22/23 History 10,000-32,000-42,000 unit capsule,delayed rel (Zenpep) magnesium oxide 400 mg (241.3 mg 400 mg PO BID 05/06/23 07/22/23 History magnesium) tablet simvastatin 40 mg tablet 40 mg PO HS 05/06/23 07/22/23 History thiamine HCl (vitamin B1) 100 mg 100 mg PO DAILY 05/06/23 07/22/23 History tablet linagliptin 5 mg tablet (Tradjenta) 5 mg PO DAILY Diabetes 05/07/23 07/22/23 History multivitamin 1 tab PO DAILY Supplement 07/01/23 07/22/23 History nicotine 14 mg/24 hr daily 14 mg topical DAILY 07/01/23 07/22/23 History transdermal patch quetiapine 100 mg tablet 100 mg PO BID 07/02/23 07/22/23 History acetaminophen 500 mg tablet 500 mg PO Q4H PRN pain/fever 07/22/23 07/22/23 History dextromethorphan-guaifenesin 10 10 ml PO Q4H PRN Cough 07/22/23 07/22/23 History mg-100 mg/5 mL oral liquid albuterol sulfate 90 mcg/actuation 2 inh inhalation QID 30 days #0 07/23/23 07/22/23 Rx aerosol inhaler (Ventolin HFA) grams carvedilol 25 mg tablet 12.5 mg PO BID 30 days #30 tabs 07/23/23 07/22/23 Rx pregabalin 50 mg capsule 50 mg PO BID #60 caps 07/23/23 Rx New Prescriptions to Start Prescriptions: Allergies Allergy/AdvReac Type Severity Reaction Status Date / Time No Known Allergies Allergy Verified 03/31/23 14:38 Discharge Plan Disposition Patient Disposition: [facility] Condition: Good Discharge Order Discharge Orders: Discharge Order (Routine); Ordered 07/23/23 Ordered By: Alphonso Auguste Follow up Plan Prescriptions/Medication Reconciliation: Continued thiamine HCl (vitamin B1) 100 mg tablet 100 mg PO DAILY Patient Comments: TAKE ONE TABLET BY MOUTH EVERY DAY simvastatin 40 mg tablet 40 mg PO HS Patient Comments: TAKE ONE TABLET BY MOUTH EVERY DAY AT BEDTIME magnesium oxide 400 mg (241.3 mg magnesium) tablet 400 mg PO BID Patient Comments: TAKE ONE TABLET BY MOUTH TWICE DAILY levocetirizine 5 mg tablet 5 mg PO HS Patient Comments: TAKE ONE TABLET BY MOUTH EVERY DAY IN THE EVENING Zenpep 10,000-32,000 -42,000 unit capsule,delayed release(DR/EC) 1 cap PO BIDWMEAL Patient Comments: TAKE ONE CAPSULE BY MOUTH THREE TIMES DAILY Trelegy Ellipta 200-62.5-25 mcg blister with device 1 inh INHALATION DAILY Patient Comments: INHALE 1 PUFF BY MOUTH DAILY DIRECTED Tradjenta 5 mg Tablet 5 mg PO DAILY multivitamin Tablet 1 tab PO DAILY Patient Comments: TAKE ONE TABLET BY MOUTH EVERY DAY nicotine 14 mg/24 hr patch 24 hour 14 mg topical DAILY Patient Comments: apply 1 PATCH topically EVERY DAY pregabalin 50 mg capsule 50 mg PO BID Patient Comments: TAKE ONE CAPSULE BY MOUTH TWICE DAILY MAY CAUSE DROWSINESS quetiapine 100 mg tablet 100 mg PO BID Patient Comments: TAKE ONE TABLET BY MOUTH TWICE DAILY dextromethorphan-guaifenesin 10-100 mg/5 mL Liquid 10 ml PO Q4H PRN (Reason: Cough) acetaminophen 500 mg Tablet 500 mg PO Q4H PRN (Reason: pain/fever) Changed carvedilol 25 mg Tablet 12.5 mg PO BID 30 Days Qty: 30 0RF albuterol sulfate [Ventolin HFA] 90 mcg/actuation HFA aerosol inhaler 2 inh INHALATION QID 30 Days Qty: 0 0RF Patient Comments: INHALE TWO PUFFS BY MOUTH EVERY 6 HOURS NEEDED --SHAKE WELL BEFORE USE-- Discontinued irbesartan 150 mg Tablet 150 mg PO DAILY 30 Days Qty: 30 0RF Hold Instructions: Resume on 07/06/23. Problem Reconciliation Problems Reviewed?: Yes Patient Discharge Instructions ACTIVITY: Continue current activity DIET: continue same diet Patient Instructions: DI for Acute Kidney Injury Providers Primary Care Provider: Shankar Raya Admit Provider: Alphonso Auguste Attending Provider: Alphonso Auguste
--- NOTE | 2023-07-23 09:57 | HMH.OTEV ---
OT Inpatient Evaluation Rehab OT IP Evaluation Start: 07/23/23 06:32 Freq: ONCE Status: Active Protocol: Document 07/23/23 09:40 [place] (Rec: 07/23/23 09:57 MELISSA [id number]) Rehab OT IP Assessment Subjective History This is a 68-year-old male with a PMHx of hypertension, type 2 diabetes, CKD, frequent falls, COPD, colon cancer, prior history of alcohol abuse , and extensive smoking history presenting to the emergency department for evaluation of what was reported to be decreased level of consciousness and weakness . Patient is a poor historian, most data collected form ED and EMS report. Patient was admitted to the hospital in May for altered mental status and was subsequently discharged to nursing facility for rehabilitation. Readmitted on June for similar conditions and discharged nursing facility. Today Patient presented from an intermediate for evaluation . On arrival patient is awake alert and oriented and appropriate however he seems to be a vague historian and can only state to me that he has felt bad for 2 days . with unspecific symptoms. No abdominal pain, changes in bowel movements, or other concerns. He does note that he has not been able to eat or drink very much and has been very nauseated, and he also has been feeling short of air and having chest pain. Admitted for management and treatment. I can get up. Patient is currently a resident at [facility]. Subjective Analysis Patient's functional mobility to complete transfers , ambulation and ADLs. Patient completed all tasks with SBA. No LOB noted. Patient appears to be at baseline. Patient participated in fx'l mobility SUP >100ft. Objective Patient Orientation Person,Place,Name,Age,Birthday ,Year Right Upper Extremity Gross ROM WFL Left Upper Extremity Gross ROM WFL Bed Mobility bed mobility - supine/sit Assist Level Supervision/Stand by Transfer Training Sit/Stand/Pivot Transfer Assist Level Supervision/Stand by Chair Transfer Ability Supervision/Stand by Chair Transfer Technique Sit to/from Ambulatory Chair Transfer Assistive Devices None Lower Body Dressing Ability Independent Upper Body Dressing Ability Independent Rehab OT IP prob,goals,plan Problems Date of Evaluation: 07/23/23 Rehab Potential Rehab Potential Innapropriate for Skilled Therapy Discharge Plan OT Discharge Plan Patient appears to be at baseline. Recommend Patient to return to LTC after medical d /c. Eval Complexity Eval Charge Codes 31175 - Low Complexity PHYSICIAN CERTIFICATION: I certify the specified therapy services for Noah Rivero JR are required, authorized, and reviewed every 30 days.
[2023-07-23] MEDS: ENOXAPARIN 40MG/0.4ML SYRINGE 40 MG SQ (10:06)
[2023-07-23 10:16] LABS: POC Glucose,Bedside 127 (70-110)
--- NOTE | 2023-07-23 13:09 | PC.NURSE ---
Report called to Susanna CHIRINOS at [facility].
== END 2023-07-23 13:48 ==
LOC: ER 19:54 → 2ND 22:59
PROVIDERS: Nurse Practitioner Family; Physician Assistant; Admitting Provider Internal Medicine Adolescent Medicine; Emergency Provider Emergency Medicine; PCP Internal Medicine Adolescent Medicine; Visit Provider Internal Medicine Adolescent Medicine
DX: N17.9 Acute kidney failure, unspecified (principal); N18.31 Chronic kidney disease, stage 3a; I12.9 Hypertensive chronic kidney disease with stage 1 through stage 4 chronic kidney disease, or unspecified chronic kidney disease; J44.9 Chronic obstructive pulmonary disease, unspecified; E11.42 Type 2 diabetes mellitus with diabetic polyneuropathy; F17.210 Nicotine dependence, cigarettes, uncomplicated; S22.080D Wedge compression fracture of T11-T12 vertebra, subsequent encounter for fracture with routine healing; E11.22 Type 2 diabetes mellitus with diabetic chronic kidney disease; R29.6 Repeated falls; E86.0 Dehydration; Z79.899 Other long term (current) drug therapy; Z79.84 Long term (current) use of oral hypoglycemic drugs; R06.02 Shortness of breath
CPT/HCPCS: 36415; 71045; 71275; 80053; 81001; 82962; 83735; 84484; 85025; 85378; 87636; 93005; 94640; 97163; 97165; 99285; G0378; J2405; Q9967

== ENCOUNTER 2023-08-30 19:19 | Emergency (ER) | payer MEDICARE, SELFPAY ==
[2023-08-30] VITALS (7 sets, daily range): BP systolic 130–146; BP diastolic 67–84; PULSE 62–88; RESP 16–20; TEMP 36.8–36.9; O2SAT 93–97; BMI 19.8
--- NOTE | 2023-08-30 19:43 | CT_ITS ---
PROCEDURE INFORMATION: Exam: CT Neck With Contrast Exam date and time: 08/30/2023 8:38 PM Age: 68 years old Clinical indication: Dysphagia / difficulty swallowing; Additional info: Difficulty swallowing, odynophagia TECHNIQUE: Imaging protocol: Computed tomography of the neck with contrast. Radiation optimization: All CT scans at this facility use at least one of these dose optimization techniques: automated exposure control; mA and/or kV adjustment per patient size (includes targeted exams where dose is matched to clinical indication); or iterative reconstruction. Contrast material: ISOVUE; Contrast volume: 75 ml; Contrast route: IV; COMPARISON: 1. CT CERVICAL SPINE WO CON 07/01/2023 3:[address] CERVICAL SPINE WO CON 03/26/2023 7:08 PM 3. SPCERVWO MR cervical spine wo con 10/19/2017 1:55 PM FINDINGS: Oral cavity: There is ill-defined soft tissue density within the right floor of mouth measuring 4.0 x 3.3 cm (image 46 series 3). Pharynx: Unremarkable. No significant tonsillar enlargement. Larynx: Unremarkable. Epiglottis is normal. Prevertebral and retropharyngeal spaces: Unremarkable. Salivary glands: Normal. Glands are normal in size. Thyroid: Normal. No enlarged or calcified nodules. Lymph nodes: Unremarkable. No lymphadenopathy. Trachea: Visualized trachea is unremarkable. Lungs: Stable partially cavitary right upper lobe pulmonary nodule. Bones/joints: Unremarkable. No acute fracture. Soft tissues: Unremarkable. No significant soft tissue swelling. IMPRESSION: 4 cm soft tissue density in the right floor of mouth, please correlate with direct inspection. If examination is equivocal, further evaluation with contrast-enhanced MRI could provide additional information.
--- NOTE | 2023-08-30 19:43 | CT_ITS ---
PROCEDURE INFORMATION: Exam: CT Head Without Contrast Exam date and time: 08/30/2023 8:34 PM Age: 68 years old Clinical indication: Other: Temperal h. A. ; Additional info: R temporal headache TECHNIQUE: Imaging protocol: Computed tomography of the head without contrast. Radiation optimization: All CT scans at this facility use at least one of these dose optimization techniques: automated exposure control; mA and/or kV adjustment per patient size (includes targeted exams where dose is matched to clinical indication); or iterative reconstruction. COMPARISON: 1. CT CERVICAL SPINE WO CON 07/01/2023 3:[address] CERVICAL SPINE WO CON 03/26/2023 7:08 PM 3. SPCERVWO MR cervical spine wo con 10/19/2017 1:55 PM FINDINGS: Brain: The brain parenchyma appears unremarkable, with no signs of acute intracranial hemorrhage or significant mass effect. There is hypodensity in the subcortical and periventricular white matter which is technically nonspecific but most often related to chronic microvascular disease. Cerebral ventricles: Mild ventricular enlargement consistent with age-related cerebral atrophy is noted. Paranasal sinuses: Paranasal sinuses show age-appropriate mucosal thickening. Mastoid air cells: Visualized mastoid air cells are well aerated. Bones/joints: There are no skull fractures or bony lesions. Soft tissues: Unremarkable. IMPRESSION: Presumably age-related and chronic changes without acute intracranial abnormality.
--- NOTE | 2023-08-30 19:44 | XR_ITS ---
PROCEDURE INFORMATION: Exam: XR Chest Exam date and time: 08/30/2023 8:38 PM Age: 68 years old Clinical indication: Cough TECHNIQUE: Imaging protocol: Radiologic exam of the chest. Views: 1 view. COMPARISON: CT ANGIO CHEST PE PROTOCOL 07/22/2023 7:55 PM FINDINGS: Lungs: No evidence of acute pulmonary disease or infiltrates Pleural spaces: No large effusion or pneumothorax. Heart/Mediastinum: No evidence of mediastinal widening or cardiac silhouette enlargement; the mediastinum and heart appear within normal limits for contour and size. Bones/joints: Evidence for old left inferolateral rib fractures. IMPRESSION: No dense parenchymal consolidation, pleural effusion, or pneumothorax.
--- NOTE | 2023-08-30 19:44 | HMH.EDGENADL ---
Discharge Plan Disposition Patient Disposition: [facility] Chief Complaint: Headache Prescriptions Prescriptions: No Action colchicine 0.6 mg tablet 0.6 mg PO DAILY Qty: 30 2RF pregabalin 50 mg capsule 50 mg PO BID Qty: 60 2RF thiamine HCl (vitamin B1) 100 mg tablet 100 mg PO DAILY Patient Comments: TAKE ONE TABLET BY MOUTH EVERY DAY simvastatin 40 mg tablet 40 mg PO HS Patient Comments: TAKE ONE TABLET BY MOUTH EVERY DAY AT BEDTIME magnesium oxide 400 mg (241.3 mg magnesium) tablet 400 mg PO BID Patient Comments: TAKE ONE TABLET BY MOUTH TWICE DAILY levocetirizine 5 mg tablet 5 mg PO HS Patient Comments: TAKE ONE TABLET BY MOUTH EVERY DAY IN THE EVENING Zenpep 10,000-32,000 -42,000 unit capsule,delayed release(DR/EC) 1 cap PO BIDWMEAL Patient Comments: TAKE ONE CAPSULE BY MOUTH THREE TIMES DAILY Trelegy Ellipta 200-62.5-25 mcg blister with device 1 inh INHALATION DAILY Patient Comments: INHALE 1 PUFF BY MOUTH DAILY DIRECTED Tradjenta 5 mg Tablet 5 mg PO DAILY multivitamin Tablet 1 tab PO DAILY Patient Comments: TAKE ONE TABLET BY MOUTH EVERY DAY nicotine 14 mg/24 hr patch 24 hour 14 mg topical DAILY Patient Comments: apply 1 PATCH topically EVERY DAY quetiapine 100 mg tablet 100 mg PO BID Patient Comments: TAKE ONE TABLET BY MOUTH TWICE DAILY dextromethorphan-guaifenesin 10-100 mg/5 mL Liquid 10 ml PO Q4H PRN (Reason: Cough) acetaminophen 500 mg Tablet 500 mg PO Q4H PRN (Reason: pain/fever) carvedilol 25 mg Tablet 12.5 mg PO BID 30 Days Qty: 30 0RF albuterol sulfate [Ventolin HFA] 90 mcg/actuation HFA aerosol inhaler 2 inh INHALATION QID 30 Days Qty: 0 0RF Patient Comments: INHALE TWO PUFFS BY MOUTH EVERY 6 HOURS NEEDED --SHAKE WELL BEFORE USE-- Referrals Follow up/Referrals: Provider,MD Jorge [Primary Care Provider] - See instructions Joseph Hercules MD [Physician] - See instructions Activity Restrictions/Add. Instructions Additional Instructions/Restrictions: At this time it was felt you are safe to be discharged home. If new or worsening symptoms please do not hesitate to return the emergency department. Please call and schedule an appointment with Dr. Hercules as soon as you are able. Clinical Impressions Clinical Impression: Disorder of oral soft tissue, Headache, Odynophagia Discharge ED Provider: Joseph Flor General Adult HPI General Chief complaint: Headache Stated complaint: Generalized weakness Time Seen by Provider: 08/30/23 19:37 Mode of Arrival: EMS Source of Information: Patient and EMS Limitations: No Limitations Description of Symptoms (Recalled from ER Triage Doc. by RN): Pt presents to ED via [facility] for headache and sore throat. Pt states this started 2 days ago. Pt is A&O*4 at this time. History of Present Illness HPI narrative: Patient is a 68-year-old male with past medical history of hypertension, COPD not on oxygen, diabetes who presents emergency department for multiple complaints. Patient has had a right-sided temporal headache, sore throat, odynophagia over the last couple of days. The difficulty swallowing is acute, as well as his headache. Both are nonmodifiable, nonpositional. No other acute complaints at this time. Related Data Home Medications Medication Instructions Recorded Confirmed fluticasone fur. 200 mcg-umeclid 1 inh inhalation DAILY 05/06/23 08/10/23 62.5 mcg-vilant 25 mcg inhalat.powder (Trelegy Ellipta) levocetirizine 5 mg tablet 5 mg PO HS 05/06/23 08/10/23 awxnsl-kzdovjky-eomturj 1 cap PO BIDWMEAL 05/06/23 08/10/23 10,000-32,000-42,000 unit capsule,delayed rel (Zenpep) magnesium oxide 400 mg (241.3 mg 400 mg PO BID 05/06/23 08/10/23 magnesium) tablet simvastatin 40 mg tablet 40 mg PO HS 05/06/23 08/10/23 thiamine HCl (vitamin B1) 100 mg 100 mg PO DAILY 05/06/23 08/10/23 tablet linagliptin 5 mg tablet (Tradjenta) 5 mg PO DAILY Diabetes 05/07/23 08/10/23 multivitamin 1 tab PO DAILY Supplement 07/01/23 08/10/23 nicotine 14 mg/24 hr daily 14 mg topical DAILY 07/01/23 08/10/23 transdermal patch quetiapine 100 mg tablet 100 mg PO BID 07/02/23 08/10/23 acetaminophen 500 mg tablet 500 mg PO Q4H PRN pain/fever 07/22/23 08/10/23 dextromethorphan-guaifenesin 10 10 ml PO Q4H PRN Cough 07/22/23 08/10/23 mg-100 mg/5 mL oral liquid Previous Rx's Medication Instructions Recorded albuterol sulfate 90 mcg/actuation 2 inh inhalation QID 30 days #0 07/23/23 aerosol inhaler (Ventolin HFA) grams carvedilol 25 mg tablet 12.5 mg (1/2 x 25 mg) PO BID 30 07/23/23 days #30 tabs colchicine 0.6 mg tablet 0.6 mg PO DAILY #30 tabs 07/27/23 pregabalin 50 mg capsule 50 mg PO BID #60 caps 07/30/23 Allergies Allergy/AdvReac Type Severity Reaction Status Date / Time No Known Allergies Allergy Verified 08/10/23 15:58 [facility] Disclaimer: The information contained in this section may have been updated after the patient was seen, as this information can be updated by other users. Medical History T12 compression fracture Ibvdk-no-pgakvzw kidney injury GERD (gastroesophageal reflux disease) Adult failure to thrive Fall Acute pain of left hip Acute hyperkalemia NAPOLEON (acute kidney injury) Altered mental status Prostate cancer COPD mixed type Neuropathy Frequent falls Abnormal computerized axial tomography of chest Tobacco abuse Smoking greater than 30 pack years Dyspnea on exertion Pulmonary emphysema Cavitary lesion of lung Lung abscess COVID COVID CKD (chronic kidney disease) Chronic pancreatitis due to chronic alcoholism Hyponatremia Pneumonia COPD (chronic obstructive pulmonary disease) Asthma Alcohol abuse Anxiety Depression Arthritis Irritable bowel syndrome (IBS) History of gastroesophageal reflux (GERD) Diabetes mellitus, type 2 Hypertension Hyperlipidemia Colon cancer Pneumonia Hypomagnesemia Hyponatremia Chronic pancreatitis Protein-calorie malnutrition, moderate Acute alcoholic pancreatitis Alcohol withdrawal Illiteracy Transaminitis Type 2 diabetes mellitus Macrocytic anemia Protein-calorie malnutrition, mild Acute renal failure Chronic alcohol abuse NAPOLEON (acute kidney injury) Polysubstance abuse Acute pancreatitis Alcoholic pancreatitis Alcoholism HTN (hypertension) COPD (chronic obstructive pulmonary disease) Hx of malignant neoplasm of colon Tobacco use disorder Surgical History S/P TURP History of colon resection History of colonoscopy Hx of prostatectomy Family History Mother Family history of diabetes mellitus type II Social History Smoking Status: Current every day smoker tobacco type: cigarettes packs per day: 1 years smoked: 54 quit status: has quit before second hand exposure: Yes alcohol intake: former counseling provided: provider counseling substance use type: marijuana current occupational status: disabled Travel in the last 8 weeks: None household members: none housing: apartment lives independently: Yes (home health comes twice a week ) marital status: current occupational exposures/hazards: No caffeine: Yes (coffee) physical activity: none do you feel safe at home: Yes ROS Obtained: Yes Systems reviewed as appropriate & no additional complaints except as documented Physical Exam General General appearance: alert and in no apparent distress Head Head exam: atraumatic, normocephalic and other (Nontender temples bilaterally) Eye Eye exam: Present PERRL and EOMI ENT ENT exam: Present mucous membranes moist, TM's normal bilaterally and other (Edentulous, tender right floor of mouth.); Absent normal oropharynx (Erythematous posterior oropharynx, uvula midline, no exudate) Neck Neck exam: Present normal inspection Chest Chest inspection: Present normal inspection and symmetric chest wall rise Respiratory Respiratory exam: Present normal lung sounds bilaterally; Absent respiratory distress Cardiovascular Cardiovascular exam: Present regular rate and normal rhythm Abdominal Exam Abdominal exam: Present soft; Absent tenderness Extremities Exam Extremities exam: Present normal inspection Neurological Exam Neurological exam: Present alert, oriented X3 and CN II-XII intact; Absent motor sensory deficit Psychiatric Psychiatric exam: Present normal affect Skin Skin exam: Present warm and dry Medical Decision Making Steven Inquiry Pt receiving controlled substance: No Vital Signs: 08/30/23 19:19 08/30/23 19:21 08/30/23 19:29 Temperature 98.2 F 98.4 F Temperature Source Oral Oral Pulse Rate 84 79 Pulse Rate [Left] 88 Respiratory Rate 16 20 16 Blood Pressure 130/73 131/81 Blood Pressure [Right Arm] 130/73 Blood Pressure Mean 102 Blood Pressure Mean [Right Arm] 92 02 Sat by Pulse Oximetry 93 L 93 L 96 Oxygen Delivery Method Room Air Room Air Room Air 08/30/23 19:30 08/30/23 20:00 08/30/23 21:00 Temperature Temperature Source Pulse Rate 82 81 78 Pulse Rate [Left] Respiratory Rate 18 18 16 Blood Pressure 132/75 131/81 146/84 H Blood Pressure [Right Arm] Blood Pressure Mean 100 107 104 Blood Pressure Mean [Right Arm] 02 Sat by Pulse Oximetry 94 L 97 95 Oxygen Delivery Method Room Air Room Air Room Air Lab Data Lab Results 08/30/23 19:35: SARS-CoV-2 (PCR) Not detected, Influenza A Untype (PCR) Not detected, Influenza Type B (PCR) Not detected, Group A Strep Rapid Negative 08/30/23 20:00: WBC 14.3 H, RBC 3.93 L, Hgb 11.9 L, Hct 37.8 L, MCV 96.1 H, MCH 30.3, MCHC 31.6 L, RDW 15.4, Plt Count 206, MPV 8.7, Neut % (Auto) 72.8, Lymph % (Auto) 18.3, Dodge % (Auto) 7.1, Eos % (Auto) 1.2, Baso % (Auto) 0.6, Neut # (Auto) 10.4 H, Lymph # (Auto) 2.6, Dodge # (Auto) 1.0, Eos # (Auto) 0.2, Baso # (Auto) 0.1, Sodium 136, Potassium 4.3, Chloride 104, Carbon Dioxide 30, Anion Gap 6.3, BUN 19, Creatinine 1.20, Estimated Creat Clear 49, Estimated GFR 60, Est GFR ( Amer) 73, Glucose 132 H, Calcium 8.9, Total Bilirubin 0.5, AST 21, ALT 16, Alkaline Phosphatase 133 H, Total Protein 6.0 L D, Albumin 3.0 L, Globulin 3.0, Albumin/Globulin Ratio 1.0 L 08/30/23 20:00 08/30/23 20:00 Orders (Tests/Meds): ED MEDICATIONS Generic Name Dose Route Start Last Admin Trade Name Freq PRN Reason Stop Dose Admin Sodium Chloride 10 ml 08/30/23 20:51 08/30/23 20:52 Sodium Chloride 0.9% 10ml Syr (Rad Only) IV 09/29/23 20:50 10 ml NEEDED PRN Administration Maintain IV Site Discontinued Medications Generic Name Dose Route Start Last Admin Trade Name Freq PRN Reason Stop Dose Admin Acetaminophen 1,000 mg 08/30/23 19:44 08/30/23 19:57 Acetaminophen 1,000mg/100ml Vial IV 08/30/23 19:45 1,000 mg ONCE ONE Administration Lactated Ringer's 1,000 mls @ 999 mls/hr 08/30/23 19:49 08/30/23 19:57 Lactated Ringer's 1000 Ml Bag IV 08/30/23 20:49 999 mls/hr .Q1H1M ONE Administration Iopamidol 75 ml 08/30/23 20:51 08/30/23 20:52 Iopamidol-370 (76%);100ml Bottle IV 08/30/23 20:52 75 ml ONCE ONE Administration Ketorolac Tromethamine 15 mg 08/30/23 19:44 08/30/23 19:57 Ketorolac 30mg/Ml Vial IV 08/30/23 19:45 15 mg ONCE ONE Administration ORDERS Category Date Time Status CT head/brain wo con Stat Cat Scan 08/30/23 19:[address] soft tissue neck w con Stat Cat Scan 08/30/23 19:43 Completed CXR --portable [XR chest portable] Stat Exams 08/30/23 19:44 Completed CBC w/Auto Diff [Complete Blood Count Auto Diff] Stat Lab 08/30/23 20:00 Completed CMP [Comprehensive Metabolic Panel] Stat Lab 08/30/23 20:00 Completed Rapid PCR Covid and Flu A/B Stat Lab 08/30/23 19:35 Completed Strep Scrn Group A (Rapid) Stat Lab 08/30/23 19:35 Completed Strep Screen Confirmation Stat Micro 08/30/23 19:35 Received Medical Decision Narrative: In summary patient is a 68-year-old male with past medical history described above presents emergency department for evaluation of new onset odynophagia, difficulty swallowing, new onset right-sided headache. Patient is hemodynamically stable nontoxic-appearing upon arrival, afebrile. Patient has history of chronic smoking, differential includes malignancy, primary headache, viral syndrome, among others. Workup will be conducted with hematologic labs, CT neck with IV contrast, CT head without IV contrast, viral swab. Initial inventions include Tylenol and Toradol. Workup reviewed by me, hematologic labs remarkable for nonspecific leukocytosis, stable anemia. No NAPOLEON or critical electrolyte abnormality. CT imaging shows ill-defined soft tissue density in the right floor of the mouth measuring 4 x 3 cm, remainder of CT imaging normal. Noncontrasted CT scan of the head shows chronic changes without acute intracranial abnormality. The differential for soft tissue density in the floor of his mouth includes benign overgrowth versus malignancy. These findings were relayed to patient and discussed with his daughter via phone at his request. Patient underwent p.o. trial with successful and is appropriate for outpatient management at this time with ENT follow-up. Critical Care Critical Care Time Critical Care Time: No
[2023-08-30 19:46] LABS: Coronavirus 19, PCR Not Detected (NotDetected); Influenza A, PCR Not Detected (NotDetected); Influenza B, PCR Not Detected (NotDetected)
[2023-08-30 19:56] LABS: Strep Scrn Group A (Rapid) Negative (Negative)
[2023-08-30] MEDS: ACETAMINOPHEN 1,000MG/100ML VIAL 1000 MG IV (19:57)
[2023-08-30] MEDS: LACTATED RINGERS 1000ML 1,000 ML 999 ML IV (19:57)
[2023-08-30] MEDS: KETOROLAC 30MG/ML VIAL 15 MG IV (19:57)
[2023-08-30 20:09] LABS: Basophils # 0.1 K/mm3 (0-0.2); Basophils % 0.6 % (0.1-2.0); Eosinophils # 0.2 K/mm3 (0.0-0.4); Eosinophils % 1.2 % (0.1-12.0); Hematocrit 37.8 % (42.0-52.0); Hemoglobin 11.9 g/dL (14.1-18.0); Lymphocytes # 2.6 K/mm3 (0.7-4.5); Lymphocytes % 18.3 % (10-50); Mean Corpuscular HGB Conc 31.6 g/dL (31.8-35.4); Mean Corpuscular Hemoglobin 30.3 pg (27.0-31.2); Mean Corpuscular Volume 96.1 fl (80-94); Mean Platelet Volume 8.7 fl (7.4-10.4); Monocytes % 7.1 % (1.7-9.3); Neutrophils # 10.4 K/mm3 (1.8-7.8); Neutrophils % 72.8 % (37.0-80.0); Platelet Count 206 K/mm3 (142-424); Red Blood Count 3.93 M/mm3 (4.60-6.20); Red Cell Distribution Width 15.4 % (11.5-17.5); White Blood Count 14.3 K/mm3 (4.8-10.8)
[2023-08-30 20:14] LABS: Chloride 104 mmol/L (98-107)
[2023-08-30 20:15] LABS: Potassium 4.3 mmoL/L (3.5-5.1); Sodium 136 mmol/L (136-145)
[2023-08-30 20:17] LABS: Blood Urea Nitrogen 19 mg/dl (9-20); Creatinine Clearance Estimated 49 mL/min (50-200); Estimated Glomerular Filt Rate 60 ml/min (>60); GFR (African American) 73 ML/MIN (>60)
[2023-08-30 20:18] LABS: Alanine Aminotransferase 16 U/L (12-78); Alkaline Phosphatase 133 U/L (38-126); Anion Gap 6.3 mEq/L (5-15); Aspartate Amino Transferase 21 U/L (17-59); Bilirubin,Total 0.5 mg/dl (0.2-1.3); Calcium 8.9 mg/dl (8.4-10.2); Carbon Dioxide 30 mmol/L (22.0-30.0); Glucose 132 mg/dl (74-100)
--- NOTE | 2023-08-30 20:24 | PC.NURSE ---
Pt to CT via stretcher with career technical supervisor
[2023-08-30] MEDS: IOPAMIDOL-370 (76%);100ML BOTTLE 75 ML IV (20:52)
[2023-08-30] MEDS: SODIUM CHLORIDE 0.9% 10ML SYR (RAD ONLY) 10 ML IV (20:52)
--- NOTE | 2023-08-30 23:30 | PC.NURSE ---
Report given to Eunice @ [employer]
--- NOTE | 2023-08-30 23:30 | PC.NURSE ---
Pt waiting for [facility] for transport
== END 2023-08-30 23:37 ==
PROVIDERS: Emergency Provider Emergency Medicine
DX: R51.9 Headache, unspecified (principal); R13.10 Dysphagia, unspecified; K13.70 Unspecified lesions of oral mucosa; R07.0 Pain in throat; I10 Essential (primary) hypertension; J44.9 Chronic obstructive pulmonary disease, unspecified; E11.9 Type 2 diabetes mellitus without complications; K21.9 Gastro-esophageal reflux disease without esophagitis; E78.5 Hyperlipidemia, unspecified; F17.210 Nicotine dependence, cigarettes, uncomplicated; Z79.84 Long term (current) use of oral hypoglycemic drugs
CPT/HCPCS: 70450; 70491; 71045; 80053; 85025; 87430; 87636; 96361; 96374; 96375; 99285; J0131; Q9967

== ENCOUNTER 2023-09-08 14:59 | Outpatient (CLI) | payer MEDICARE, SELFPAY ==
--- NOTE | 2023-09-08 15:00 | CT_ITS ---
FINAL REPORT TECHNIQUE: Axial CT images were performed from the lung apices through the upper abdomen. Coronal and sagittal reformats were submitted. This study was performed with techniques to keep radiation doses as low as reasonably achievable (ALARA). Individualized dose reduction techniques using automated exposure control or adjustment of mA and/or kV according to the patient's size were employed. CLINICAL HISTORY: 6 mth F/U COMPARISON: 07/22/2023 CTA of the chest FINDINGS: Severe coronary artery calcifications are again noted. Moderate changes of emphysema and mild scarring are stable. This right lower lobe atelectasis, which has improved since the prior exam of July 22. There is also improvement in the diffuse bronchial wall thickening. There is no axillary adenopathy. There is no hilar or mediastinal mass or adenopathy. Heart size is normal. There is no pericardial or pleural effusion. Multiple nodules are once again identified. There is a 14 mm partially calcified cavitary nodule present in the right apex, stable. There is a 9 mm nodule in the left upper lobe laterally, also stable. There is a right lower lobe nodule now 4 mm, was 6 mm on the prior exam, best seen on image #56. There is a nodule adjacent to the major fissure on the right, measures 5 mm, was previously 5 mm, best seen on image #65. No new nodules or masses are identified. Multiple calcified granulomas are once again noted. IMPRESSION: Multiple nodules are once again identified, mostly stable, although a right lower lobe nodule and image #56 is now 4 mm and was 6 mm on the previous exam. No new nodules or masses are identified. Moderate changes of emphysema are present, and there is improved right lower lobe atelectasis and improved diffuse bronchial wall thickening when compared to the prior exam. Severe coronary artery calcifications are once again identified. Reviewed, Interpreted and Dictated by Niko Glez III, MD Transcribed by Gwen Engel Authenticated and [facility]
== END 2023-09-08 23:59 ==
LOC: RAD 15:00
PROVIDERS: PCP Family Medicine; Visit Provider Internal Medicine Pulmonary Disease
DX: R91.8 Other nonspecific abnormal finding of lung field (principal)
CPT/HCPCS: 71250

== ENCOUNTER 2023-10-09 12:36 | Outpatient (CLI) | payer MEDICARE, MEDICAID, SELFPAY ==
--- NOTE | 2023-10-09 12:43 | US_ITS ---
FINAL REPORT CLINICAL HISTORY: current smoker, HTN, DM, HLD, bilateral rest pain, bilateral claudication, discoloration of bilateral feet. FINDINGS: BILATERAL ANKLE BRACHIAL INDICES Pressure indices are as follows are: RIGHT LOWER EXTREMITY Ankle brachial pressure index: 1.2 COMMENTS: Normal LEFT LOWER EXTREMITY Ankle brachial pressure index: 1.1 COMMENTS: Normal IMPRESSION: No evidence of significant obstructive peripheral vascular disease of the lower extremities. Reviewed, Interpreted and Dictated by Niko Glez III, MD Transcribed by Estella Blair Authenticated and [facility]
== END 2023-10-09 23:59 | disposition home or self-care (01) ==
LOC: RT 12:38
PROVIDERS: PCP Family Medicine; Visit Provider Nurse Practitioner Family
DX: M79.604 Pain in right leg (principal); M79.605 Pain in left leg; I70.213 Atherosclerosis of native arteries of extremities with intermittent claudication, bilateral legs
CPT/HCPCS: 93923

== ENCOUNTER 2023-12-01 15:34 | Outpatient (POV) | payer MEDICARE, MEDICAID, SELFPAY | END 2023-12-01 23:59 | disposition home or self-care (01) | LOC: SC 15:34 | PROVIDERS: PCP Family Medicine; Visit Provider Dermatology | DX: Z00.00 Encounter for general adult medical examination without abnormal findings (principal) ==

== ENCOUNTER 2024-02-09 07:40 | Day surgery (SDC) | payer MEDICARE, MEDICAID, SELFPAY ==
[2024-02-05 13:55] VITALS: BMI 24.9
[2024-02-09 09:27] VITALS: BP 167/92; PULSE 83; RESP 16; TEMP 36.9; O2SAT 96
[2024-02-09] MEDS: TETRACAINE 0.5% OPTH SOL 15ML OP (09:36)
[2024-02-09] MEDS: PHENYLEPHRINE 2.5% OPHTH SOLN 2ML OP (09:36)
[2024-02-09] MEDS: APRACLONIDINE 0.5% OPHTH SOLN 5ML OP (09:36)
[2024-02-09] MEDS: TROPICAMIDE 1% OPTH SOLN 2ML OP (09:36)
[2024-02-09 09:38] LABS: POC Glucose,Bedside 140 (70-110)
--- NOTE | 2024-02-09 13:18 | P.PCN_ITS ---
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 The patient has noticed that the vision has decreased from the previous good level postop. The patient reports that he/she is having trouble reading and/or driving or that glare is giving them a problem. On exam, the patient was found to have visually significant posterior capsular opacification. The treatment options, risks and benefits were explained and the patient elected to have YAG laser capsulotomy in an attempt to improve the vision. Of note, the best corrected visual acuity is in the 23/30 or worse range by refraction or glare testing. The eye was dilated and 1 drop of 0.5% Iopidine applied. YAG laser energy was applied to the posterior capsular bag with good formation of an opening and no complications were noted. The patient will be seen back for follow up in 2 weeks OD 26 pulses 82mj OS 40 pulses 127mj
== END 2024-02-09 12:30 | disposition home or self-care (01) ==
LOC: OUTP 07:43
PROVIDERS: PCP Family Medicine; Visit Provider Ophthalmology
PROC: (CPT 66821; principal; 2024-02-09 09:30)
DX: H26.493 Other secondary cataract, bilateral (principal); E11.9 Type 2 diabetes mellitus without complications
CPT/HCPCS: 66821; 82962

== ENCOUNTER 2024-02-23 13:36 | Outpatient (POV) | payer MEDICARE, MEDICAID, SELFPAY | END 2024-02-23 23:59 | disposition home or self-care (01) | LOC: SC 13:37 | PROVIDERS: Visit Provider Dermatology | DX: Z00.00 Encounter for general adult medical examination without abnormal findings (principal) ==

== ENCOUNTER 2024-04-08 11:59 | Emergency (ER) | payer MEDICARE, MEDICAID, SELFPAY ==
[2024-04-08] VITALS (13 sets, daily range): BP systolic 175–210; BP diastolic 95–110; PULSE 71–83; RESP 16–20; TEMP 36.8; O2SAT 93–97; BMI 28.1
--- NOTE | 2024-04-08 11:59 | PC.NURSE ---
DR ALONSO AT BEDSIDE
--- NOTE | 2024-04-08 12:04 | CT_ITS ---
FINAL REPORT CLINICAL HISTORY: [facility] COMPARISON: 08/30/2023 FINDINGS: Axial images of the head were obtained without contrast. Coronal reformatted images were also obtained. This study was performed with techniques to keep radiation doses as low as reasonably achievable (ALARA). Individualized dose reduction techniques using automated exposure control or adjustment of mA and/or kV according to the patient''s size were employed. There is generalized age-appropriate atrophy. Periventricular low-attenuation areas are seen consistent with mild chronic ischemic changes. There is no evidence of intracranial hemorrhage or mass. There are multiple chronic lacunar infarcts. There is no evidence of acute infarct. There is no evidence of shift of the midline structures. No skull abnormality is seen on the bone window images. IMPRESSION: Atrophy and mild periventricular chronic ischemic changes. No acute intracranial abnormality identified. Reviewed, Interpreted and Dictated by Niko Glez III, MD Transcribed by Lauryn Chisholm Authenticated and [facility]
--- NOTE | 2024-04-08 12:04 | XR_ITS ---
FINAL REPORT CLINICAL HISTORY: generally feeling unwell, cough COMPARISON: 07/22/2023 FINDINGS: A single portable view of the chest was obtained. The heart size and pulmonary vascularity are within normal limits. The mediastinum is within normal limits. There are mild bibasilar opacities which are favored to represent atelectasis or scar. The bony thorax is intact. IMPRESSION: Mild bibasilar opacities favor atelectasis or scar. Reviewed, Interpreted and Dictated by Niko Glez III, MD Transcribed by Lauryn Chisholm Authenticated and [facility]
[2024-04-08 12:14] LABS: Lactate Venous 1.5 mmol/L (0.4-2.0); VBG Base Excess -1.1 mmol/L (-2.4-2.3); VBG Oxygen Saturation 90.4 % (50-70); VBG PCO2 41.1 mmol/L (35-51); VBG PH 7.38 mmol/L (7.31-7.41); VBG PO2 59.4 mmol/L (28-40); VBG Total CO2 25.2 mmol/L (23-27)
[2024-04-08 12:14] LABS: Basophils # 0.1 K/mm3 (0-0.2); Basophils % 1.1 % (0.1-2.0); Eosinophils # 0.3 K/mm3 (0.0-0.4); Eosinophils % 3.3 % (0.1-12.0); Hematocrit 38.9 % (42.0-52.0); Hemoglobin 13.1 g/dL (14.1-18.0); Lymphocytes # 2.7 K/mm3 (0.7-4.5); Lymphocytes % 30.7 % (10-50); Mean Corpuscular HGB Conc 33.8 g/dL (31.8-35.4); Mean Corpuscular Hemoglobin 29.5 pg (27.0-31.2); Mean Corpuscular Volume 87.3 fl (80-94); Mean Platelet Volume 7.7 fl (7.4-10.4); Monocytes # 0.5 K/mm3 (0.1-1.0); Monocytes % 5.1 % (1.7-9.3); Neutrophils # 5.3 K/mm3 (1.8-7.8); Neutrophils % 59.8 % (37.0-80.0); Platelet Count 157 K/mm3 (142-424); Red Blood Count 4.45 M/mm3 (4.60-6.20); Red Cell Distribution Width 16.3 % (11.5-17.5); White Blood Count 8.9 K/mm3 (4.8-10.8)
[2024-04-08 12:16] LABS: Coronavirus 19, PCR Not Detected (NotDetected); Influenza A, PCR Not Detected (NotDetected); Influenza B, PCR Not Detected (NotDetected)
--- NOTE | 2024-04-08 12:22 | PC.NURSE ---
PT TRANSPORTED TO RADIOLOGY
[2024-04-08 12:28] LABS: Microscopic, Urine URINE MICROSCOPIC (MICROSCOPIC)
[2024-04-08 12:37] LABS: Appearance,Urine CLEAR (Clear); Bilirubin,Urine Negative (Negative); Blood, Urine 2+ (Negative); Color,Urine YELLOW (Yellow); Glucose,Urine (UA) Negative (Negative); Ketones,Urine Negative (Negative); Leukocyte Esterase,Urine Negative (Negative); Nitrate,Urine Negative (Negative); Protein,Urine 3+ (Negative); Specific Gravity, Urine >= 1.030 (1.005-1.030); Urobilinogen,Urine 0.2 EU/dl (0.2)
[2024-04-08 12:38] LABS: Albumin Level 3.5 g/dl (3.5-5.0); Chloride 107 mmol/L (98-107); Sodium 137 mmol/L (136-145)
[2024-04-08 12:40] LABS: Alanine Aminotransferase 18 U/L (12-78); Aspartate Amino Transferase 39 U/L (17-59); Blood Urea Nitrogen 30 mg/dl (9-20); Carbon Dioxide 25 mmol/L (22.0-30.0); Creatinine Clearance Estimated 47 mL/min (50-200); Estimated Glomerular Filt Rate 38 ml/min (>60); GFR (African American) 46 ML/MIN (>60)
[2024-04-08 12:41] LABS: Albumin/Globulin Ratio 1.2 (1.1-1.8); Alkaline Phosphatase 99 U/L (38-126); Bilirubin,Total 0.6 mg/dl (0.2-1.3); Calcium 8.6 mg/dl (8.4-10.2); Globulin 2.9 g/dL (1.3-3.2); Glucose 207 mg/dl (74-100); Lipase 20 U/L (23-300); Total Protein,Serum 6.4 g/dl (6.3-8.2)
[2024-04-08 12:56] LABS: Bacteria,Urine Trace /lpf; Squamous Epithelial Cell,Urine Occasional #/hpf (0-5); WBC,Urine Occasional #/hpf (0-3)
[2024-04-08 12:57] LABS: T4 (Thyroxine) 6.9 ug/dl (5.53-11.0)
[2024-04-08 13:11] LABS: Thyroid Stimulating Hormone 3.69 uIU/mL (0.465-4.68)
--- NOTE | 2024-04-08 13:15 | PC.NURSE ---
I rounded on the pt and updated the family on the status of his work up. no new complaints, no needs voiced. call levine in reach.
--- NOTE | 2024-04-08 13:19 | PC.NURSE ---
DR ALONSO AT BEDSIDE UPDATING PT AND FAMILY
--- NOTE | 2024-04-08 13:20 | PC.NURSE ---
Dr. Blood is bedside updating the family and the pt.
--- NOTE | 2024-04-08 13:25 | CT_ITS ---
FINAL REPORT TECHNIQUE: Axial images through the abdomen and pelvis were performed without contrast. This study was performed with techniques to keep radiation doses as low as reasonably achievable, (ALARA). Individualized dose reduction techniques using automated exposure control or adjustment of mA and/or kV according to the patient's size were employed. CLINICAL HISTORY: hematuria COMPARISON: 07/01/2023 FINDINGS: ABDOMEN: There is a small opacity in the posterior right lower lobe, favor atelectasis. The heart size is normal. Limited images of the liver are unremarkable. The spleen is normal. Calcifications are identified consistent with chronic pancreatitis. There is moderate vascular calcification. Multiple pancreatic no adrenal mass is identified. The aorta is normal in caliber. There is no significant free fluid or adenopathy. There is no nephrolithiasis. There is no hydronephrosis. PELVIS: The appendix is normal. Patient is status post prostatectomy. No ureteral stones identified. The urinary bladder is unremarkable. There is no significant free fluid or adenopathy. IMPRESSION: Chronic pancreatitis. Reviewed, Interpreted and Dictated by Niko Glez III, MD Transcribed by Loan Askew Authenticated and . [facility]
--- NOTE | 2024-04-08 13:28 | PC.NURSE ---
DR ALONSO AT BEDSIDE TO UPDATE PT AND FAMILY
--- NOTE | 2024-04-08 13:31 | PC.NURSE ---
PT TO CT
--- NOTE | 2024-04-08 13:48 | HMH.EDGENADL ---
Discharge Plan Disposition Patient Disposition: Xfer SNF Condition: Good Prescriptions Prescriptions: New levofloxacin 750 mg tablet 750 mg PO DAILY 7 Days Qty: 7 0RF No Action colchicine 0.6 mg tablet 0.6 mg PO DAILY Qty: 30 2RF pregabalin 50 mg capsule 50 mg PO BID Qty: 60 2RF gabapentin 300 mg capsule 300 mg PO BID 30 Days Qty: 60 2RF thiamine HCl (vitamin B1) 100 mg tablet 100 mg PO DAILY Patient Comments: TAKE ONE TABLET BY MOUTH EVERY DAY simvastatin 40 mg tablet 40 mg PO HS Patient Comments: TAKE ONE TABLET BY MOUTH EVERY DAY AT BEDTIME magnesium oxide 400 mg (241.3 mg magnesium) tablet 400 mg PO BID Patient Comments: TAKE ONE TABLET BY MOUTH TWICE DAILY levocetirizine 5 mg tablet 5 mg PO HS Patient Comments: TAKE ONE TABLET BY MOUTH EVERY DAY IN THE EVENING Zenpep 10,000-32,000 -42,000 unit capsule,delayed release(DR/EC) 1 cap PO BIDWMEAL Patient Comments: TAKE ONE CAPSULE BY MOUTH THREE TIMES DAILY Trelegy Ellipta 200-62.5-25 mcg blister with device 1 inh INHALATION DAILY Patient Comments: INHALE 1 PUFF BY MOUTH DAILY DIRECTED Tradjenta 5 mg Tablet 5 mg PO DAILY multivitamin Tablet 1 tab PO DAILY Patient Comments: TAKE ONE TABLET BY MOUTH EVERY DAY nicotine 14 mg/24 hr patch 24 hour 14 mg topical DAILY Patient Comments: apply 1 PATCH topically EVERY DAY quetiapine 100 mg tablet 100 mg PO BID Patient Comments: TAKE ONE TABLET BY MOUTH TWICE DAILY dextromethorphan-guaifenesin 10-100 mg/5 mL Liquid 10 ml PO Q4H PRN (Reason: Cough) acetaminophen 500 mg Tablet 500 mg PO Q4H PRN (Reason: pain/fever) carvedilol 25 mg Tablet 12.5 mg PO BID 30 Days Qty: 30 0RF albuterol sulfate [Ventolin HFA] 90 mcg/actuation HFA aerosol inhaler 2 inh INHALATION QID 30 Days Qty: 0 0RF Patient Comments: INHALE TWO PUFFS BY MOUTH EVERY 6 HOURS NEEDED --SHAKE WELL BEFORE USE-- Referrals Follow up/Referrals: Forrest Phillips MD [Staff Physician] - See instructions Garcia Melgar MD [Primary Care Provider] - See instructions Lowell Roth MD [Staff Physician] - See instructions Activity Restrictions/Add. Instructions Additional Instructions/Restrictions: You were evaluated in the emergency department today. Please follow-up closely for outpatient labs for reassessment of your kidney function. Please also monitor blood pressure at least twice a day. Take the full prescription of antibiotics to treat UTI as prescribed. Follow-up closely with urology for hematuria as well as with cardiology with concerns for worsened hypertension. Return to the emergency department for new or worsening symptoms. Clinical Impressions Clinical Impression: NAPOLEON (acute kidney injury), Hematuria Hypertension Qualifiers: Hypertension type: unspecified Qualified Code(s): I10 - Essential (primary) hypertension Print Language Print Language: Palestinian Discharge ED Provider: Chanda Blood General Adult HPI General Chief complaint: Weakness Stated complaint: RIGHT SIDED WEAKNESS Time Seen by Provider: 04/08/24 12:03 Mode of Arrival: EMS Source of Information: Patient and EMS Limitations: No Limitations Description of Symptoms (Recalled from ER Triage Doc. by RN): per EMS they were called for stroke like symptoms by [facility], R sided slump/weakness. The nurse practioner over the facility did a NIH of 0. EMS reports on their arrival their stroke scale was also negative. pts NIH here is negative (0). Pt c/o generalized weakness and numbness ongoing x2d. pt is A&Ox4 History of Present Illness HPI narrative: This patient is a 68-year-old male with a history of hypertension, type 2 diabetes, tobacco use, prior alcohol use, COPD presenting to the emergency department from nursing facility with concern for weakness. According to EMS, they were called to the nursing facility because they felt the patient was slumped over to the right. They noted that overall he was generally weak. Patient does complain of general weakness. The nurse practitioner at the facility reportedly did an NIH scale which was 0 and EMS reported that they did not note any focal deficits either. Patient states that overall he is feeling very generally weak, has had cough, nausea, poor appetite, and just does not feel good. He also notes intermittent vertigo for the last several weeks. He describes it as a room spinning sensation that is intermittent. It seems to be worse with position changes, but he is not experiencing it right now. It does not happen every day. He complains of a mild headache right now but otherwise denies any vision changes, numbness, tingling, unilateral weakness, chest pain, abdominal pain, changes bowel movements, or other concerns. Related Data Home Medications ?Medication ?Instructions ?Recorded ?Confirmed fluticasone fur. 200 mcg-umeclid 1 inh inhalation DAILY 05/06/23 03/15/24 62.5 mcg-vilant 25 mcg inhalat.powder (Trelegy Ellipta) levocetirizine 5 mg tablet 5 mg PO HS 05/06/23 03/15/24 knynwd-[id number] 1 cap PO BIDWMEAL 05/06/23 03/15/24 10,000-32,000-42,000 unit capsule,delayed rel (Zenpep) magnesium oxide 400 mg (241.3 mg 400 mg PO BID 05/06/23 03/15/24 magnesium) tablet simvastatin 40 mg tablet 40 mg PO HS 05/06/23 03/15/24 thiamine HCl (vitamin B1) 100 mg 100 mg PO DAILY 05/06/23 03/15/24 tablet linagliptin 5 mg tablet (Tradjenta) 5 mg PO DAILY Diabetes 05/07/23 03/15/24 multivitamin 1 tab PO DAILY Supplement 07/01/23 03/15/24 nicotine 14 mg/24 hr daily 14 mg topical DAILY 07/01/23 03/15/24 transdermal patch quetiapine 100 mg tablet 100 mg PO BID 07/02/23 03/15/24 acetaminophen 500 mg tablet 500 mg PO Q4H PRN pain/fever 07/22/23 03/15/24 dextromethorphan-guaifenesin 10 10 ml PO Q4H PRN Cough 07/22/23 03/15/24 mg-100 mg/5 mL oral liquid Previous Rx's ?Medication ?Instructions ?Recorded albuterol sulfate 90 mcg/actuation 2 inh inhalation QID 30 days #0 07/23/23 aerosol inhaler (Ventolin HFA) grams carvedilol 25 mg tablet 12.5 mg (1/2 x 25 mg) PO BID 30 07/23/23 days #30 tabs colchicine 0.6 mg tablet 0.6 mg PO DAILY #30 tabs 07/27/23 pregabalin 50 mg capsule 50 mg PO BID #60 caps 07/30/23 gabapentin 300 mg capsule 300 mg PO BID 30 days #60 caps 03/28/24 levofloxacin 750 mg tablet 750 mg PO DAILY 7 days #7 tabs 04/08/24 Allergies Allergy/AdvReac Type Severity Reaction Status Date / Time No Known Allergies Allergy Verified 04/08/24 12:16 [facility] Disclaimer: The information contained in this section may have been updated after the patient was seen, as this information can be updated by other users. Medical History T12 compression fracture Xtlzn-ny-kzgaohy kidney injury GERD (gastroesophageal reflux disease) Adult failure to thrive Fall Acute pain of left hip Acute hyperkalemia NAPOLEON (acute kidney injury) Altered mental status Prostate cancer COPD mixed type Neuropathy Frequent falls Abnormal computerized axial tomography of chest Tobacco abuse Smoking greater than 30 pack years Dyspnea on exertion Pulmonary emphysema Cavitary lesion of lung Lung abscess COVID COVID CKD (chronic kidney disease) Chronic pancreatitis due to chronic alcoholism Hyponatremia Pneumonia COPD (chronic obstructive pulmonary disease) Asthma Alcohol abuse Anxiety Depression Arthritis Irritable bowel syndrome (IBS) History of gastroesophageal reflux (GERD) Diabetes mellitus, type 2 Hypertension Hyperlipidemia Colon cancer Pneumonia Hypomagnesemia Hyponatremia Chronic pancreatitis Protein-calorie malnutrition, moderate Acute alcoholic pancreatitis Alcohol withdrawal Illiteracy Transaminitis Type 2 diabetes mellitus Macrocytic anemia Protein-calorie malnutrition, mild Acute renal failure Chronic alcohol abuse NAPOLEON (acute kidney injury) Polysubstance abuse Acute pancreatitis Alcoholic pancreatitis Alcoholism HTN (hypertension) COPD (chronic obstructive pulmonary disease) Hx of malignant neoplasm of colon Tobacco use disorder Surgical History History of cataract surgery S/P TURP History of colon resection History of colonoscopy Hx of prostatectomy Family History Mother Family history of diabetes mellitus type II Social History Smoking Status: Current every day smoker tobacco type: cigarettes packs per day: 1 years smoked: 54 quit status: has quit before second hand exposure: Yes alcohol intake: former counseling provided: provider counseling substance use type: marijuana current occupational status: disabled Travel in the last 8 weeks: None household members: none housing: apartment lives independently: Yes (home health comes twice a week ) marital status: current occupational exposures/hazards: No caffeine: Yes (coffee) physical activity: none do you feel safe at home: Yes Other Medical History Have you received the Flu Vaccine for this season: No Have you received the Pneumonia Vaccine: No ROS Obtained: Yes All systems reviewed & no additional complaints except as documented Physical Exam General General appearance: alert and in no apparent distress Comment: Lying in bed in no acute distress. Generally weak without focal neurologic deficit Head Head exam: atraumatic and normocephalic Eye Eye exam: Present normal appearance, PERRL and EOMI ENT ENT exam: Present normal exam, normal oropharynx, mucous membranes moist and normal external ear exam Neck Neck exam: Present normal inspection, full ROM and trachea midline; Absent tenderness Chest Chest inspection: Present normal inspection and symmetric chest wall rise; Absent tenderness Respiratory Respiratory exam: Present normal lung sounds bilaterally; Absent respiratory distress, wheezes, stridor or accessory muscle use Cardiovascular Cardiovascular exam: Present regular rate and normal rhythm Abdominal Exam Abdominal exam: Present soft; Absent distention, tenderness or guarding Extremities Exam Extremities exam: Present normal inspection, full ROM and normal capillary refill; Absent tenderness or edema Back Exam Back exam: Present normal inspection and full ROM; Absent tenderness Neurological Exam Neurological exam: Present alert, oriented X3, CN II-XII intact and other (Generally weak without focal deficit); Absent motor sensory deficit Psychiatric Psychiatric exam: Present normal affect and normal mood Skin Skin exam: Present warm and dry Medical Decision Making Medical Records Medical records reviewed: Yes I reviewed the patient's medical records. Screening: Per USPSTF and CDC recommendations, given the prevalence of disease in our region, it is our hospital?s policy to screen for HIV and viral Hepatitis for all patients aged 18 and over and those with ongoing risk factors. Steven Inquiry Pt receiving controlled substance: No Vital Signs: 04/08/24 12:09 04/08/24 13:01 04/08/24 13:15 Temperature 98.2 F Temperature Source Oral Pulse Rate 73 77 Pulse Rate [Left] 78 Respiratory Rate 16 16 Blood Pressure 194/109 H 177/103 H Blood Pressure [Right Arm] 175/105 H Blood Pressure Mean 137 144 Blood Pressure Mean [Right Arm] 128 Blood Pressure Source Blood Pressure Source [Right Arm] Automatic Cuff Blood Pressure Position Blood Pressure Position [Right Arm] Sitting 02 Sat by Pulse Oximetry 96 96 96 Oxygen Delivery Method Room Air 04/08/24 13:55 04/08/24 13:57 04/08/24 14:00 Temperature Temperature Source Pulse Rate 75 75 77 Pulse Rate [Left] Respiratory Rate 18 18 16 Blood Pressure 193/107 H 192/105 H 185/105 H Blood Pressure [Right Arm] Blood Pressure Mean 135 134 142 Blood Pressure Mean [Right Arm] Blood Pressure Source Blood Pressure Source [Right Arm] Blood Pressure Position Blood Pressure Position [Right Arm] 02 Sat by Pulse Oximetry 97 96 96 Oxygen Delivery Method 04/08/24 14:30 04/08/24 14:42 04/08/24 14:50 Temperature Temperature Source Pulse Rate 75 75 Pulse Rate [Left] Respiratory Rate 16 Blood Pressure 185/109 H 184/110 H 176/100 H Blood Pressure [Right Arm] Blood Pressure Mean 143 134 Blood Pressure Mean [Right Arm] Blood Pressure Source Automatic Cuff Manual Cuff/ Auscultation Blood Pressure Source [Right Arm] Blood Pressure Position Sitting Blood Pressure Position [Right Arm] 02 Sat by Pulse Oximetry 97 96 Oxygen Delivery Method 04/08/24 15:00 04/08/24 15:30 04/08/24 16:00 Temperature Temperature Source Pulse Rate 76 83 71 Pulse Rate [Left] Respiratory Rate Blood Pressure 190/102 H 197/95 H 210/102 H Blood Pressure [Right Arm] Blood Pressure Mean 131 129 138 Blood Pressure Mean [Right Arm] Blood Pressure Source Blood Pressure Source [Right Arm] Blood Pressure Position Blood Pressure Position [Right Arm] 02 Sat by Pulse Oximetry 97 93 L 75 L Oxygen Delivery Method 04/08/24 16:21 Temperature 98.2 F Temperature Source Oral Pulse Rate 82 Pulse Rate [Left] Respiratory Rate 20 Blood Pressure 190/98 H Blood Pressure [Right Arm] Blood Pressure Mean Blood Pressure Mean [Right Arm] Blood Pressure Source Automatic Cuff Blood Pressure Source [Right Arm] Blood Pressure Position Blood Pressure Position [Right Arm] 02 Sat by Pulse Oximetry Oxygen Delivery Method Room Air Lab Data Lab results reviewed: Yes I reviewed the patient's lab results. Lab Results 04/08/24 12:04: VBG pH 7.38, VBG pCO2 41.1, VBG pO2 59.4 H, VBG HCO3 24.0, VBG Total CO2 25.2, VBG O2 Saturation 90.4 H, VBG Base Excess -1.1, VBG Lactic Acid 1.5 04/08/24 12:05: WBC 8.9, RBC 4.45 L, Hgb 13.1 L, Hct 38.9 L, MCV 87.3, MCH 29.5, MCHC 33.8, RDW 16.3, Plt Count 157, MPV 7.7, Neut % (Auto) 59.8, Lymph % (Auto) 30.7, Davie % (Auto) 5.1, Eos % (Auto) 3.3, Baso % (Auto) 1.1, Neut # (Auto) 5.3, Lymph # (Auto) 2.7, Davie # (Auto) 0.5, Eos # (Auto) 0.3, Baso # (Auto) 0.1, Sodium 137, Potassium 5.0, Chloride 107, Carbon Dioxide 25, Anion Gap 10.0, BUN 30 H, Creatinine 1.80 H, Estimated Creat Clear 47, Estimated GFR 38 L, Est GFR ( Amer) 46 L, Glucose 207 H, Calcium 8.6, Total Bilirubin 0.6, AST 39, ALT 18, Alkaline Phosphatase 99, Total Protein 6.4, Albumin 3.5, Globulin 2.9, Albumin/Globulin Ratio 1.2, Lipase 20 L, TSH 3.69, Thyroxine (T4) 6.9, HIV 1&2 Antibody Rapid Nonreactive 04/08/24 12:10: SARS-CoV-2 (PCR) Not detected, Influenza A Untype (PCR) Not detected, Influenza Type B (PCR) Not detected 04/08/24 12:23: Urine Color Yellow, Urine Appearance Clear, Urine pH 6.0, Ur Specific Sawyer >= 1.030, Urine Protein 3+ A, Urine Glucose (UA) Negative, Urine Ketones Negative, Urine Blood 2+ A, Urine Nitrate Negative, Urine Bilirubin Negative, Urine Urobilinogen 0.2, Ur Leukocyte Esterase Negative, Urine RBC 5-10, Urine WBC Occasional, Ur Squamous Epith Cells Occasional, Urine Bacteria Trace 04/08/24 12:05 04/08/24 12:05 Orders (Tests/Meds): ED MEDICATIONS Discontinued Medications Generic Name Dose Route Start Last Admin Trade Name Freq PRN Reason Stop Dose Admin Sodium Chloride 1,000 mls @ 999 mls/hr 04/08/24 13:25 04/08/24 13:49 Sod Chlor 0.9% 1000ml Bag IV 04/08/24 14:25 999 mls/hr .Q1H1M ONE Administration Levofloxacin 750 mg 04/08/24 14:55 04/08/24 15:03 Levofloxacin 750 Mg Tablet PO 04/08/24 14:56 750 mg ONCE ONE Administration Meclizine HCl 12.5 mg 04/08/24 13:26 04/08/24 13:50 Meclizine 12.5mg Tablet PO 04/08/24 13:27 12.5 mg ONCE ONE Administration ORDERS Category Date Time Status CT abdomen pelvis wo con Stat Cat Scan 04/08/24 13:[address] head/brain wo con Stat Cat Scan 04/08/24 12:04 Completed CXR --portable [XR chest portable] Stat Exams 04/08/24 12:04 Completed Complete Blood Count Auto Diff Stat Lab 04/08/24 12:05 Completed Comprehensive Metabolic Panel Stat Lab 04/08/24 12:05 Completed HIV (1&2) Antibody Rapid Stat Lab 04/08/24 12:05 Completed Hep C Ab with Reflex to RNA Stat Lab 04/08/24 12:05 Received Lipase Stat Lab 04/08/24 12:05 Completed Rapid PCR Covid and Flu A/B Stat Lab 04/08/24 12:10 Completed T4 (Thyroxine) Stat Lab 04/08/24 12:05 Completed TSH [Thyroid Stimulating Hormone] Stat Lab 04/08/24 12:05 Completed UA [Urinalysis and Microscopic] Stat Lab 04/08/24 12:23 Completed Urine Culture Stat Micro 04/08/24 12:23 Received VBG [Venous Blood Gas] Stat RT 04/08/24 12:04 Completed Medical Decision Narrative: In summary, this patient is a 68-year-old male presenting to the Emergency Department for evaluation of generalized weakness and feeling unwell. Differential diagnoses considered include but are not limited to dehydration, electrolyte derangements, NAPOLEON, gastroenteritis, viral syndrome, pneumonia, urinary tract infection. Ruling out the most morbid conditions drove assessment. It should be noted patient's history includes hypertension, hyperlipidemia, diabetes, tobacco dependence, prior alcohol use which may or may not be at goal therapy. This complicates all aspects of care by increasing patient's risk for morbidity. I reviewed patient's past medical records and noted previous evaluations in the past for similar symptoms with diagnosis of NAPOLEON each time and admission to the hospital for further evaluation and management. On exam, the patient is lying in bed in no acute distress. He is hypertensive but otherwise vitals are reassuring on cardiac telemetry. He is neurologically intact with mild general weakness but nothing focal. Cardiopulmonary and abdominal exams are benign. He has multiple various complaints including cough, nausea, fatigue, but no significant pain anywhere. Workup included lab evaluation to evaluate for infectious, metabolic causes symptoms as well as CT head without contrast and chest x-ray. I independently interpreted CT head and chest x-ray prior to the radiologist read and noted no obvious acute space-occupying brain lesion and no focal pneumonia. Please see their read for final interpretation. They noted no significant changes with lung scarring as well as chronic changes to the brain, but nothing acute. labs were obtained that demonstrated NAPOLEON on CKD with creatinine 1.8 from a baseline of 1.2. He also has hematuria and ketonuria. I did give him bolus of IV fluids. Urine culture was sent and is pending. I also ordered CT abdomen pelvis without IV contrast to evaluate for hematuria and NAPOLEON, and it was not concerning for any obstructive uropathy. Given this, shared decision-making with the family was had and they elected to treat empirically as UTI just in case pending the urine culture. Patient was given oral Levaquin. He was also given a bolus of IV fluids given the NAPOLEON. On reassessment, patient had good improvement after administration of interventions above, but he still has significant hypertension with systolics in the 180s to 190s. According to family and medical record review, he typically is in the 130s. He only takes carvedilol twice daily for blood pressure. With NAPOLEON, significant hypertension, and possible urinary tract infection, I feel the patient would benefit from admission for continued monitoring. I had an interactive discussion with the hospitalist who admitted the patient in stable condition for further evaluation and management.. Critical Care Critical Care Time Critical Care Time: No
[2024-04-08] MEDS: 0.9 % SODIUM CHLORIDE 1000ML 1,000 ML 999 ML IV (13:49)
[2024-04-08] MEDS: MECLIZINE 12.5MG TABLET 12.5 MG PO (13:50)
[2024-04-08 14:40] LABS: HIV (1&2) Antibody Rapid NONREACTIVE (NONREACTIVE)
[2024-04-08] MEDS: levoFLOXacin 750 MG TABLET PO (15:03)
--- NOTE | 2024-04-08 15:31 | PC.NURSE ---
Iv was infiltratred, was DC,d. Also pt ambulated around nurses station, stated slight dizzy upon first standing, then better as walked.
--- NOTE | 2024-04-08 16:05 | PC.NURSE ---
Report called to [facility], I spoke with Susanna.
--- NOTE | 2024-04-08 16:20 | PC.NURSE ---
Called EMS for transport back to [facility]
[2024-04-09 08:22] LABS: HCV Ab Non Reactive (Non Reactive)
== END 2024-04-08 16:37 ==
PROVIDERS: Emergency Provider Emergency Medicine; PCP Family Medicine
DX: G81.91 Hemiplegia, unspecified affecting right dominant side (principal); R31.9 Hematuria, unspecified; I10 Essential (primary) hypertension
CPT/HCPCS: 70450; 71045; 74176; 80053; 81001; 82803; 83690; 84436; 84443; 85025; 86803; 87086; 87389; 87636; 96360; 99284; J7030

== ENCOUNTER 2024-04-08 22:37 | Observation (INO) | payer MEDICARE, MEDICAID, SELFPAY ==
[2024-04-08 22:37] VITALS: BP 205/120; PULSE 85; RESP 16; TEMP 36.6; O2SAT 94; BMI 25.8
--- NOTE | 2024-04-08 23:42 | ED_ITS ---
Discharge Plan Disposition Patient Disposition: Admitted Condition: Fair Clinical Impressions Clinical Impression: Hypertension, NAPOLEON (acute kidney injury), Proteinuria Discharge ED Provider: Caitlyn Hernandez Adult HPI General Chief complaint: Recheck/Abnormal Lab/Rx Stated complaint: hypertension Time Seen by Provider: 04/08/24 23:00 Mode of Arrival: Ambulatory Source of Information: Patient Limitations: No Limitations Description of Symptoms (Recalled from ER Triage Doc. by RN): Patient arrived via [facility] who was sent from [facility]. Reports that patient was seen earlier today for generalized wekaness and not feeling well, patient was dx with UTI. Upon return back to nursing facility nursing staff states they have been attempting to manage patient BP to which they gave 25mg Coreg approx 0 without effect. BP ranging >200 systolics since 1699. Patient denies chest pain, or any adverse effects from hypertension at this time stating, I dont know why Im back here. I feel fine, they just told me I had to come back to the hospital. History of Present Illness HPI narrative: 68-year-old male presents to the ER with [facility] from [facility] for concerns of hypertension. Patient was evaluated earlier today and found to have findings concerning for possible UTI as well as NAPOLEON and symptomatic hypertension. He had negative CT imaging according to my review of records from earlier. Records demonstrated patient had been accepted for admission, unclear how patient ended up being discharged since there is no note from the hospitalist or any addendum indicating that patient ended up being discharged, however patient presented back to the ER from detention due to persistent hypertension, detention concerned about the numbers he is demonstrating. He denies chest pain, shortness of breath, nausea, vomiting, weakness. He reports mild headache which has been constant all day, not thunderclap in nature, and unchanged from earlier. Related Data Home Medications ?Medication ?Instructions ?Recorded ?Confirmed fluticasone fur. 200 mcg-umeclid 1 inh inhalation DAILY 05/06/23 03/15/24 62.5 mcg-vilant 25 mcg inhalat.powder (Trelegy Ellipta) levocetirizine 5 mg tablet 5 mg PO HS 05/06/23 03/15/24 xzeukt-odcsfblu-ngjublg 1 cap PO BIDWMEAL 05/06/23 03/15/24 10,000-32,000-42,000 unit capsule,delayed rel (Zenpep) magnesium oxide 400 mg (241.3 mg 400 mg PO BID 05/06/23 03/15/24 magnesium) tablet simvastatin 40 mg tablet 40 mg PO HS 05/06/23 03/15/24 thiamine HCl (vitamin B1) 100 mg 100 mg PO DAILY 05/06/23 03/15/24 tablet linagliptin 5 mg tablet (Tradjenta) 5 mg PO DAILY Diabetes 05/07/23 03/15/24 multivitamin 1 tab PO DAILY Supplement 07/01/23 03/15/24 nicotine 14 mg/24 hr daily 14 mg topical DAILY 07/01/23 03/15/24 transdermal patch quetiapine 100 mg tablet 100 mg PO BID 07/02/23 03/15/24 acetaminophen 500 mg tablet 500 mg PO Q4H PRN pain/fever 07/22/23 03/15/24 dextromethorphan-guaifenesin 10 10 ml PO Q4H PRN Cough 07/22/23 03/15/24 mg-100 mg/5 mL oral liquid Previous Rx's ?Medication ?Instructions ?Recorded albuterol sulfate 90 mcg/actuation 2 inh inhalation QID 30 days #0 07/23/23 aerosol inhaler (Ventolin HFA) grams carvedilol 25 mg tablet 12.5 mg (1/2 x 25 mg) PO BID 30 07/23/23 days #30 tabs colchicine 0.6 mg tablet 0.6 mg PO DAILY #30 tabs 07/27/23 pregabalin 50 mg capsule 50 mg PO BID #60 caps 07/30/23 gabapentin 300 mg capsule 300 mg PO BID 30 days #60 caps 03/28/24 levofloxacin 750 mg tablet 750 mg PO DAILY 7 days #7 tabs 04/08/24 Allergies Allergy/AdvReac Type Severity Reaction Status Date / Time No Known Allergies Allergy Verified 04/08/24 12:16 [facility] Disclaimer: The information contained in this section may have been updated after the patient was seen, as this information can be updated by other users. Medical History T12 compression fracture Eears-fs-qnkcfxq kidney injury GERD (gastroesophageal reflux disease) Adult failure to thrive Fall Acute pain of left hip Acute hyperkalemia NAPOLEON (acute kidney injury) Altered mental status Prostate cancer COPD mixed type Neuropathy Frequent falls Abnormal computerized axial tomography of chest Tobacco abuse Smoking greater than 30 pack years Dyspnea on exertion Pulmonary emphysema Cavitary lesion of lung Lung abscess COVID COVID CKD (chronic kidney disease) Chronic pancreatitis due to chronic alcoholism Hyponatremia Pneumonia COPD (chronic obstructive pulmonary disease) Asthma Alcohol abuse Anxiety Depression Arthritis Irritable bowel syndrome (IBS) History of gastroesophageal reflux (GERD) Diabetes mellitus, type 2 Hypertension Hyperlipidemia Colon cancer Pneumonia Hypomagnesemia Hyponatremia Chronic pancreatitis Protein-calorie malnutrition, moderate Acute alcoholic pancreatitis Alcohol withdrawal Illiteracy Transaminitis Type 2 diabetes mellitus Macrocytic anemia Protein-calorie malnutrition, mild Acute renal failure Chronic alcohol abuse NAPOLEON (acute kidney injury) Polysubstance abuse Acute pancreatitis Alcoholic pancreatitis Alcoholism HTN (hypertension) COPD (chronic obstructive pulmonary disease) Hx of malignant neoplasm of colon Tobacco use disorder Surgical History History of cataract surgery S/P TURP History of colon resection History of colonoscopy Hx of prostatectomy Family History Mother Family history of diabetes mellitus type II Social History Smoking Status: Current every day smoker tobacco type: cigarettes packs per day: 1 years smoked: 54 quit status: has quit before second hand exposure: Yes alcohol intake: former counseling provided: provider counseling substance use type: marijuana current occupational status: disabled Travel in the last 8 weeks: None household members: none housing: apartment lives independently: Yes (home health comes twice a week ) marital status: current occupational exposures/hazards: No caffeine: Yes (coffee) physical activity: none do you feel safe at home: Yes Other Medical History Have you received the Flu Vaccine for this season: No Have you received the Pneumonia Vaccine: No ROS Obtained: Yes All systems reviewed & no additional complaints except as documented Positive ROS per HPI Physical Exam General General appearance: alert and in no apparent distress Head Head exam: atraumatic and normocephalic Eye Eye exam: Present PERRL and EOMI ENT ENT exam: Present mucous membranes moist Neck Neck exam: Present normal inspection and full ROM Chest Chest inspection: Present symmetric chest wall rise Respiratory Respiratory exam: Present normal lung sounds bilaterally; Absent respiratory distress, wheezes or stridor Cardiovascular Cardiovascular exam: Present regular rate and normal rhythm Abdominal Exam Abdominal exam: Present soft; Absent distention, tenderness, guarding or rebound Extremities Exam Extremities exam: Present full ROM Neurological Exam Neurological exam: Present alert, oriented X3 and CN II-XII intact; Absent motor sensory deficit Psychiatric Psychiatric exam: Present normal affect and normal mood Skin Skin exam: Present warm and dry Medical Decision Making Medical Records Medical records reviewed: Yes I reviewed the patient's medical records. Screening: Per USPSTF and CDC recommendations, given the prevalence of disease in our region, it is our hospital?s policy to screen for HIV and viral Hepatitis for all patients aged 18 and over and those with ongoing risk factors. MR Comment: See HPI for details of earlier encounter Steven Inquiry Pt receiving controlled substance: No Vital Signs: 04/08/24 22:37 04/09/24 00:33 Temperature 97.8 F 98.0 F Temperature Source Oral Oral Pulse Rate 74 Pulse Rate [Right] 85 Respiratory Rate 16 18 Blood Pressure 219/128 H Blood Pressure [Right Arm] 205/120 H Blood Pressure Mean [Right Arm] 148 Blood Pressure Source Automatic Cuff Blood Pressure Position Sitting Blood Pressure Position [Right Arm] Supine 02 Sat by Pulse Oximetry 94 L Oxygen Delivery Method Room Air Room Air Lab Data Lab Results 04/09/24 00:26: WBC 8.9, RBC 4.16 L, Hgb 12.0 L, Hct 36.5 L, MCV 87.6, MCH 28.8, MCHC 32.9, RDW 16.3, Plt Count 142, MPV 8.1, Neut % (Auto) 59.3, Lymph % (Auto) 30.1, Barron % (Auto) 6.7, Eos % (Auto) 2.9, Baso % (Auto) 0.9, Neut # (Auto) 5.3, Lymph # (Auto) 2.7, Barron # (Auto) 0.6, Eos # (Auto) 0.3, Baso # (Auto) 0.1, Sodium 137, Potassium 4.5, Chloride 107, Carbon Dioxide 28, Anion Gap 6.5, BUN 30 H, Creatinine 2.00 H, Estimated Creat Clear 39, Estimated GFR 33 L, Est GFR ( Amer) 40 L, Glucose 208 H, Calcium 8.6, Total Bilirubin 0.5, AST 26 D, ALT 16, Alkaline Phosphatase 96, Total Protein 6.0 L, Albumin 3.3 L, Globulin 2.7, Albumin/Globulin Ratio 1.2 04/09/24 00:26 04/09/24 00:26 Orders (Tests/Meds): ED MEDICATIONS Generic Name Dose Route Start Last Admin Trade Name Freq PRN Reason Stop Dose Admin Acetaminophen 650 mg 04/09/24 00:08 Acetaminophen 325mg Tab PO 05/09/24 00:07 Q4HP PRN Fever or Mild Pain (1-3) Ondansetron HCl 4 mg 04/09/24 00:08 Ondansetron 4mg/2ml Vial IV 05/09/24 00:07 Q8HP PRN Nausea Pantoprazole Sodium 40 mg 04/09/24 21:00 Pantoprazole 40mg Tablet PO 05/09/24 20:59 HS MAJOR Discontinued Medications Generic Name Dose Route Start Last Admin Trade Name Freq PRN Reason Stop Dose Admin Labetalol HCl 10 mg 04/08/24 23:16 04/09/24 00:12 Labetalol 20mg/4ml Syringe IV 04/08/24 23:17 10 mg ONCE ONE Administration ORDERS Category Date Time Status CBC w/Auto Diff [Complete Blood Count Auto Diff] Stat Lab 04/08/24 23:16 Completed CMP [Comprehensive Metabolic Panel] Stat Lab 04/08/24 23:16 Completed Complete Blood Count Auto Diff AMLAB Lab 04/09/24 06:00 Ordered Comprehensive Metabolic Panel AMLAB Lab 04/09/24 06:00 Ordered Magnesium AMLAB Lab 04/09/24 06:00 Ordered Medical Decision Narrative: In summary, this 68-year-old male with history of hypertension, diabetes, COPD presents to the emergency department today with concerns of hypertension from detention with evaluation earlier today for neurologic abnormalities which she does not have on presentation at this time. On initial evaluation patient is hypertensive but otherwise hemodynamically stable, well-appearing, no neurologic deficits, complaining of very mild headache with no red flag symptoms and no neurologic deficits, remainder of exam benign. Given patient's workup earlier and documentation that indicated he was going to be admitted, I do not believe he requires a new broad workup for his symptoms since the previous provider was very thorough and patient had reassuring imaging. I did did consider the possibility of worsening NAPOLEON, electrolyte abnormality, patient already demonstrated proteinuria and hematuria on his workup earlier. I do not believe repeat imaging is indicated. Patient received IV labetalol for hypertension. He had some improvement of his blood pressure and headache. Labs reviewed demonstrating no new leukocytosis, hemoglobin 12, patient has worsening kidney function with no other new actionable abnormalities I discussed this case with the hospitalist since patient requires admission for NAPOLEON and symptomatic hypertension as well as proteinuria concerning for possible nephrotic/nephritic syndrome. Patient was graciously accepted for admission. Critical Care Critical Care Time Critical Care Time: No
[2024-04-09] VITALS (28 sets, daily range): BP systolic 124–226; BP diastolic 53–128; PULSE 70–88; RESP 16–20; TEMP 35.9–36.7; O2SAT 93–98; BMI 25.2
[2024-04-09] MEDS: LABETALOL 20MG/4ML SYRINGE 10 MG IV (00:12)
--- NOTE | 2024-04-09 00:20 | ECG_ITS ---
APPROVED REPORT Exam: Resting ECG HR:75 bpm ECG Measurements Heart Rate 75 AXES TN 193 P 57 QRSd 76 QRS 75 QT 368 T 111 QTc 396 Conclusion SINUS RHYTHM NONSPECIFIC ST & T-WAVE ABNORMALITY BORDERLINE ECG No STEMI Electronically signed by : NATY CLARK, 04/09/2024 03:36:07
--- NOTE | 2024-04-09 00:21 | EXP.HP ---
History of Present Illness *Admission Date: 04/09/24 *Reason for visit:: Uncontrolled hypertension with worsening kidney function *History of present illness: This long-term care patient, came to the emergency room earlier today due to elevated blood pressure and kidney function decreased.. Patient was worked up and released back to long-term care. After being at long-term care blood pressure remained elevated he was sent back to the emergency room.. Medication is being used to lower his blood pressure, he is stable at the present time but with the decrease in renal function and the continued hypertension patient will be admitted to the floor. Cardiology consult will be made. See if adjusting medications can bring this gentleman's blood pressure down, while trying to preserve renal function. As his GFR is dropped to 33 he has proteinuria and hematuria Noted on CT scan significant amount of calcium in the pancreas, diagnosis was chronic pancreatitis, he is also status post prostatectomy. [facility] Disclaimer: The information contained in this section may have been updated after the patient was seen, as this information can be updated by other users. Medical History T12 compression fracture Ommiu-cj-uqyxfje kidney injury GERD (gastroesophageal reflux disease) Adult failure to thrive Fall Acute pain of left hip Acute hyperkalemia NAPOLEON (acute kidney injury) Altered mental status Prostate cancer COPD mixed type Neuropathy Frequent falls Abnormal computerized axial tomography of chest Tobacco abuse Smoking greater than 30 pack years Dyspnea on exertion Pulmonary emphysema Cavitary lesion of lung Lung abscess COVID COVID CKD (chronic kidney disease) Chronic pancreatitis due to chronic alcoholism Hyponatremia Pneumonia COPD (chronic obstructive pulmonary disease) Asthma Alcohol abuse Anxiety Depression Arthritis Irritable bowel syndrome (IBS) History of gastroesophageal reflux (GERD) Diabetes mellitus, type 2 Hypertension Hyperlipidemia Colon cancer Pneumonia Hypomagnesemia Hyponatremia Chronic pancreatitis Protein-calorie malnutrition, moderate Acute alcoholic pancreatitis Alcohol withdrawal Illiteracy Transaminitis Type 2 diabetes mellitus Macrocytic anemia Protein-calorie malnutrition, mild Acute renal failure Chronic alcohol abuse NAPOLEON (acute kidney injury) Polysubstance abuse Acute pancreatitis Alcoholic pancreatitis Alcoholism HTN (hypertension) COPD (chronic obstructive pulmonary disease) Hx of malignant neoplasm of colon Tobacco use disorder Surgical History History of cataract surgery S/P TURP History of colon resection History of colonoscopy Hx of prostatectomy Family History Mother Family history of diabetes mellitus type II Social History (Updated 04/09/24 @ 01:32 by Caryl Orellana RN) Smoking Status: Current every day smoker tobacco type: cigarettes packs per day: 1 years smoked: 54 quit status: has quit before second hand exposure: Yes alcohol intake: former counseling provided: provider counseling substance use type: marijuana current occupational status: disabled Travel in the last 8 weeks: None household members: none housing: apartment lives independently: Yes (home health comes twice a week ) marital status: current occupational exposures/hazards: No caffeine: Yes (coffee) physical activity: none do you feel safe at home: Yes Other Medical History Have you received the Flu Vaccine for this season: No Have you received the Pneumonia Vaccine: No Review of Systems Review of Systems Review of systems:: pertinent systems reviewed and negative unless documented below Constitutional Constitutional: Reports as per HPI Eyes Eyes: Reports as per HPI ENT Ears, Nose, Mouth, and Throat: Reports as per HPI *Cardiovascular Cardiovascular: Reports as per HPI *Respiratory Respiratory: Reports as per HPI *Gastrointestinal Gastrointestinal: Reports as per HPI Comments: Patient voiced no complaint of abdominal pain *Genitourinary Genitourinary: Reports as per HPI Integumentary/Breasts Skin/Breast: Reports as per HPI *Neurologic Neurologic: Reports as per HPI Psychiatric Psychiatric: Reports as per HPI Endocrine Endocrine: Reports as per HPI Hematologic/Lymphatic Hematologic/Lymphatic: Reports as per HPI Allergic/Immunologic Allergic/Immunologic: Reports as per HPI Meds Home Medications and Allergies Home Medications ?Medication ?Instructions ?Recorded ?Confirmed ?Type fluticasone fur. 200 mcg-umeclid 1 inh inhalation DAILY 05/06/23 04/09/24 History 62.5 mcg-vilant 25 mcg inhalat.powder (Trelegy Ellipta) levocetirizine 5 mg tablet 5 mg PO HS 05/06/23 04/09/24 History rkrvtj-nmmwdeld-amrdwwt 1 cap PO BIDWMEAL 05/06/23 04/09/24 History 10,000-32,000-42,000 unit capsule,delayed rel (Zenpep) magnesium oxide 400 mg (241.3 mg 400 mg PO BID 05/06/23 04/09/24 History magnesium) tablet simvastatin 40 mg tablet 40 mg PO HS 05/06/23 04/09/24 History thiamine HCl (vitamin B1) 100 mg 100 mg PO DAILY 05/06/23 04/09/24 History tablet linagliptin 5 mg tablet (Tradjenta) 5 mg PO DAILY Diabetes 05/07/23 03/15/24 History multivitamin 1 tab PO DAILY Supplement 07/01/23 04/09/24 History nicotine 14 mg/24 hr daily 14 mg topical DAILY 07/01/23 03/15/24 History transdermal patch quetiapine 100 mg tablet 100 mg PO BID 07/02/23 03/15/24 History acetaminophen 500 mg tablet 500 mg PO Q4H PRN pain/fever 07/22/23 04/09/24 History dextromethorphan-guaifenesin 10 10 ml PO Q4H PRN Cough 07/22/23 04/09/24 History mg-100 mg/5 mL oral liquid albuterol sulfate 90 mcg/actuation 2 inh inhalation QID 30 days #0 07/23/23 04/09/24 Rx aerosol inhaler (Ventolin HFA) grams carvedilol 25 mg tablet 12.5 mg (1/2 x 25 mg) PO BID 30 07/23/23 04/09/24 Rx days #30 tabs colchicine 0.6 mg tablet 0.6 mg PO DAILY #30 tabs 07/27/23 04/09/24 Rx pregabalin 50 mg capsule 50 mg PO BID #60 caps 07/30/23 03/15/24 Rx gabapentin 300 mg capsule 300 mg PO BID 30 days #60 caps 03/28/24 04/09/24 Rx levofloxacin 750 mg tablet 750 mg PO DAILY 7 days #7 tabs 04/08/24 04/09/24 Rx New Prescriptions to Start Prescriptions: Allergies Allergy/AdvReac Type Severity Reaction Status Date / Time No Known Allergies Allergy Verified 04/08/24 12:16 Exam Data for Last 24 hours Vital signs and Labs for Last 24 Hours: Temp Pulse Resp BP Pulse Ox O2 Del Method 97.8 F 85 16 205/120 H 94 L Room Air 04/08/24 22:37 04/08/24 22:37 04/08/24 22:37 04/08/24 22:37 04/08/24 22:37 04/08/24 22:37 I & O for Last 24 hours: Intake & Output 04/06/24 04/07/24 04/08/24 04/09/24 23:59 23:59 23:59 23:59 Weight 77.111 kg Radiology Reports for the Last 24 Hours: Calcification in the pancreas, no significant other findings Constitutional Constitutional: no acute distress *Routine HEENT Exam Head: Present normocephalic and atraumatic Eye: Present EOMI and PERRL ENT: Present mucous membranes moist *Routine Neck Exam Neck: Present supple and full ROM *Routine Respiratory Exam Respiratory: Present accessory muscle use, CTA bilaterally, normal respiratory effort, able to speak in complete sentences and symmetric chest movement *Routine Cardiovascular Exam Cardiovascular: Present RRR, Normal S1 and Normal S2 *Routine Abdominal Exam Abdominal: Present soft and normoactive bowel sounds Comments: No tenderness found upon examination of the abdomen *Routine Rectal Exam Rectal:: deferred *Routine Genitalia Exam Genitalia:: deferred *Routine Extremities Exam Comments: Normal exams of the arms and legs he is able to stand walk and move without any assistance Routine Back/Spine/Pelvis Exam Back/Spine: Present full ROM Comments: Patient had no signs of any type of back discomfort as noted he is able to stand twist bend without any assistance and no signs of distress *Routine Skin Exam Skin: Present intact, dry and warm *Routine Neurological Exam Neurological: Present alert, oriented X3, CN II-XII intact and normal tone Routine Psychiatric Exam Psychiatric: Present normal affect, cooperative and good judgment Comments: Patient is able to answer questions well he knows where he is at stating that he really does not feel bad. Expressed understanding that we need to get his blood pressure down as it is hurting his kidneys, H&P: Result Impressions Uncontrolled hypertension worsening kidney function Imaging and Cardiology CT scan - abdomen: Status: image reviewed by me Additional comments: No acute findings chronic findings of a significant amount of calcium in the aorta also in the pancreas CT scan - head: Additional comments: Do agree no acute findings mild atrophy is noted in the written report Assessment and Plan *Assessment and plan (1) NAPOLEON (acute kidney injury): Status: Acute Category: Medical Code(s): N17.9 - Acute kidney failure, unspecified (2) Malignant hypertension: Status: Acute Category: Medical Code(s): I10 - Essential (primary) hypertension (3) Hypertension: Status: Acute Category: Medical Code(s): I10 - Essential (primary) hypertension (4) Proteinuria: Status: Acute Category: Medical Code(s): R80.9 - Proteinuria, unspecified (5) Hematuria: Status: Acute Category: Medical Code(s): R31.9 - Hematuria, unspecified (6) Severe uncontrolled hypertension: Status: Acute Category: Medical Code(s): I10 - Essential (primary) hypertension Plan 68-year-old male with history of alcoholism, hypertension, COPD, diabetes. Resides at a long-term. Presented twice to the ER with elevated blood pressure and NAPOLEON. Case discussed with ER physician, request admission for further treatment of blood pressure and kidney dysfunction. Medicine agreed to admit. Addressing blood pressure aggressively. Of note received Levaquin in the ER yesterday for possible UTI however urinalysis relatively bland. Culture still pending. Will hold antibiotics at this time. Problems addressed as follows: Malignant hypertension -Systolics ranging 170-200. Unclear the actual source. Unclear if patient is in pain and just not verbalized -Initiate carvedilol 25 mg twice daily, if no improvement, will consider adding nifedipine. Initiate hydralazine 25 mg orally 3 times a day for systolic blood pressure greater than 180. -Will consider irbesartan pending kidney function. -No previous workup with echo or evaluation of his heart. Will consider cardiology consult if patient still admitted on Thursday versus outpatient workup if discharged prior to Thursday. -Reviewed CT of abdomen obtained earlier today, no focal abnormalities. Kidneys appear normal. Pancreas is calcifications per my review. -Urinalysis from previous ER visit unremarkable with no leuk esterase, nitrite, no white cells, only blood. Chronic pancreatitis without pain; continue Zenpep with meals Continue gabapentin 300 mg twice daily for the History of diabetes, blood sugar 112 on morning labs. No indication for insulin at this time Hematuria and proteinuria without signs of infection, secondary to history of kidney dysfunction and now uncontrolled hypertension -Continue to follow urine culture Full code Regular diet Rounded on patient after nurse practitioner. Personally examined and interviewed patient. Agree with exam findings and care plan as documented. Repeat CBC, CMP, magnesium ordered for the morning. Continue aggressive blood pressure management. Initiated nifedipine 30 mg extended release. If no improvement in blood pressure thereafter, will administer irbesartan 75 mg once. Had similar episode a year ago from chart review that gradually improved. He has been weaned on his outpatient blood pressure regimen over the past year. Patient relatively asymptomatic. Only complaining of headache. Given needed 650 mg for headache
[2024-04-09 00:37] LABS: Albumin Level 3.3 g/dl (3.5-5.0); Chloride 107 mmol/L (98-107); Sodium 137 mmol/L (136-145)
[2024-04-09 00:38] LABS: Potassium 4.5 mmoL/L (3.5-5.1)
[2024-04-09 00:39] LABS: Basophils # 0.1 K/mm3 (0-0.2); Basophils % 0.9 % (0.1-2.0); Eosinophils # 0.3 K/mm3 (0.0-0.4); Eosinophils % 2.9 % (0.1-12.0); Hematocrit 36.5 % (42.0-52.0); Lymphocytes # 2.7 K/mm3 (0.7-4.5); Lymphocytes % 30.1 % (10-50); Mean Corpuscular HGB Conc 32.9 g/dL (31.8-35.4); Mean Corpuscular Hemoglobin 28.8 pg (27.0-31.2); Mean Corpuscular Volume 87.6 fl (80-94); Mean Platelet Volume 8.1 fl (7.4-10.4); Monocytes # 0.6 K/mm3 (0.1-1.0); Monocytes % 6.7 % (1.7-9.3); Neutrophils # 5.3 K/mm3 (1.8-7.8); Neutrophils % 59.3 % (37.0-80.0); Platelet Count 142 K/mm3 (142-424); Red Blood Count 4.16 M/mm3 (4.60-6.20); Red Cell Distribution Width 16.3 % (11.5-17.5); White Blood Count 8.9 K/mm3 (4.8-10.8)
[2024-04-09 00:40] LABS: Alanine Aminotransferase 16 U/L (12-78); Albumin/Globulin Ratio 1.2 (1.1-1.8); Alkaline Phosphatase 96 U/L (38-126); Anion Gap 6.5 mEq/L (5-15); Aspartate Amino Transferase 26 U/L (17-59); Bilirubin,Total 0.5 mg/dl (0.2-1.3); Blood Urea Nitrogen 30 mg/dl (9-20); Carbon Dioxide 28 mmol/L (22.0-30.0); Creatinine Clearance Estimated 39 mL/min (50-200); Estimated Glomerular Filt Rate 33 ml/min (>60); GFR (African American) 40 ML/MIN (>60); Globulin 2.7 g/dL (1.3-3.2)
[2024-04-09 00:41] LABS: Calcium 8.6 mg/dl (8.4-10.2); Glucose 208 mg/dl (74-100)
--- NOTE | 2024-04-09 00:58 | PC.NURSE ---
Patient arrived to floor via wheelchair from ED at 00:55.
[2024-04-09] MEDS: LABETALOL 5MG/ML 20ML MDV 10 MG IV (03:10)
--- NOTE | 2024-04-09 05:33 | PC.NURSE ---
0530: Pt. was admitted overnight from the ED. Pt. was sent from [facility] to the ED yesterday for weakness and pt. not feeling well. Pt was Dx. with a UTI and sent back to [place]. Pt. than had episode of HTN at [place]. they gave a dose of Coreg at the [place] with no change in the Blood pressure. Pt. sent back to the ED and got a dose of Labetalol in the ED with no effect. Pt. was admitted to the floor and got a second dose of Labetalol. with no chnge in the blood pressure. Jesus ALDRICH is aware. Pt. is alert and orientated x 4. He has an extensive medical hx. No records were sent with the PT. [facility] was contacted and we requested the medication record to be faxed to us to verify medications for this patient. No records have been sent yet. Pt. was made comfortable and has been sleeping on and off. No c/o's . personal items and call levine in reach.
[2024-04-09 06:22] LABS: Basophils # 0.1 K/mm3 (0-0.2); Basophils % 0.9 % (0.1-2.0); Eosinophils # 0.2 K/mm3 (0.0-0.4); Eosinophils % 2.8 % (0.1-12.0); Hematocrit 36.4 % (42.0-52.0); Hemoglobin 12.2 g/dL (14.1-18.0); Lymphocytes # 2.5 K/mm3 (0.7-4.5); Lymphocytes % 29.8 % (10-50); Mean Corpuscular HGB Conc 33.6 g/dL (31.8-35.4); Mean Corpuscular Volume 89.3 fl (80-94); Mean Platelet Volume 7.7 fl (7.4-10.4); Monocytes # 0.6 K/mm3 (0.1-1.0); Monocytes % 6.9 % (1.7-9.3); Neutrophils # 4.9 K/mm3 (1.8-7.8); Neutrophils % 59.6 % (37.0-80.0); Platelet Count 139 K/mm3 (142-424); Red Blood Count 4.08 M/mm3 (4.60-6.20); Red Cell Distribution Width 16.1 % (11.5-17.5); White Blood Count 8.3 K/mm3 (4.8-10.8)
[2024-04-09 06:30] LABS: Alanine Aminotransferase 15 U/L (12-78); Albumin Level 3.4 g/dl (3.5-5.0); Albumin/Globulin Ratio 1.3 (1.1-1.8); Alkaline Phosphatase 90 U/L (38-126); Anion Gap 8.1 mEq/L (5-15); Aspartate Amino Transferase 26 U/L (17-59); Bilirubin,Total 0.5 mg/dl (0.2-1.3); Blood Urea Nitrogen 28 mg/dl (9-20); Calcium 8.8 mg/dl (8.4-10.2); Carbon Dioxide 29 mmol/L (22.0-30.0); Chloride 107 mmol/L (98-107); Creatinine Clearance Estimated 40 mL/min (50-200); Estimated Glomerular Filt Rate 35 ml/min (>60); GFR (African American) 43 ML/MIN (>60); Globulin 2.6 g/dL (1.3-3.2); Glucose 112 mg/dl (74-100); Magnesium 1.3 mg/dl (1.6-2.3); Potassium 4.1 mmoL/L (3.5-5.1); Sodium 140 mmol/L (136-145)
--- NOTE | 2024-04-09 07:47 | PC.NURSE ---
Addendum entered by Vivien Nova RN 04/09/24 09:53: SOME OF HOME MED LIST WAS CONFIRMED WITH THE PT'S DAUGHTER. WILL ATTEMPT TO CLARIFY THE REST WITH THE PRISON. Addendum entered by Vivien Nova RN 04/09/24 09:43: SPRING ASSEMBLER SUPERVISOR ATTEMPTED TO CALL NH AND GET MED REC. NH STILL HAS NOT SENT MED REC. PHARMACY NOTIFIED OF SITUATION. Original Note: DEVELOPMENT ASSOCIATE REPORTED THAT THEY ATTEMPTED TO GET MED REC FROM [facility]ISON X[facility] LAST NIGHT AND NH NEVER SENT PAPERWORK. THIS RN CALLED AGAIN THIS AM AND SPOKE TO CANDIS MOSER AND SHE STATED THAT SHE WOULD PRINT OFF AND FAX INFO NEEDED.
[2024-04-09] MEDS: HYDRALAZINE HCL 25MG TABLET 25 MG PO ×3 (08:05→20:33)
[2024-04-09] MEDS: CARVEDILOL 12.5MG TABLET 12.5 MG PO (08:05)
[2024-04-09 08:19] LABS: Lipase 21 U/L (23-300)
[2024-04-09] MEDS: MAGNESIUM SULFATE IN WATER 2 GM/50 ML PIGGYBACK IV ×2 (09:09→11:21)
[2024-04-09] MEDS: CARVEDILOL 25MG TABLET 25 MG PO ×2 (09:09→20:33)
[2024-04-09] MEDS: ENALAPRILAT 2.5MG/2ML VIAL 1.25 MG IV (11:11)
[2024-04-09 11:15] LABS: POC Glucose,Bedside 215 (70-110)
--- NOTE | 2024-04-09 11:43 | PC.NURSE ---
PT'S DAUGHTER HAS CALLED MULTIPLE TIMES ASKING ABOUT UPDATES IN PT'S CARE AND STATUS ABOUT RESTARTING THE ABX THAT THE ER HAD STARTED ON HIM YESTERDAY. I SPOKE WITH MD ABOUT SAID ANTIBIOTICS AND UPDATED HIS DAUGHTER THAT THE MD DID NOT BELIEVE THAT PT HAS A UTI AT THIS TIME AND WOULD NOT BE STARTING ABX BACK. PT'S DAUGHTER BEGAN TO GET VERY FRUSTRATED AND ANGRY WITH ME. SHE ASKED TO HAVE THE MD CALL HER TODAY TO EXPLAIN WHAT WAS GOING ON AND WHY ABX WOULD NOT BE RESTARTED EVEN THOUGH PT HAD BLOOD IN HIS URINE.
[2024-04-09] MEDS: ACETAMINOPHEN 325MG TAB 650 MG PO (12:31)
[2024-04-09] MEDS: ONDANSETRON 4MG/2ML VIAL 4 MG IV (13:23)
[2024-04-09] MEDS: NIFEdipine XL 30MG TABLET 30 MG PO (13:50)
[2024-04-09] MEDS: IRBESARTAN 75MG TABLET 75 MG PO (14:57)
--- NOTE | 2024-04-09 15:02 | P.CONPHA_ITS ---
Pharmacy Intervention Comments: MEDICATION RECONCILIATION COMPLETE USING MAR FROM [facility].
--- NOTE | 2024-04-09 15:02 | HMH.PHAINT1 ---
Pharmacy Intervention Comments: MEDICATION RECONCILIATION COMPLETE USING MAR FROM [facility].
[2024-04-09] MEDS: MORPHINE 2MG/ML SYRINGE 2 MG IV (16:10)
[2024-04-09] MEDS: LIPASE/PROTEASE/AMYLASE 1 EACH CAPSULE.DR PO (16:30)
[2024-04-09 16:40] LABS: POC Glucose,Bedside 195 (70-110)
[2024-04-09 17:41] LABS: Chloride 101 mmol/L (98-107); Sodium 137 mmol/L (136-145)
[2024-04-09 17:42] LABS: Potassium 4.3 mmoL/L (3.5-5.1)
[2024-04-09 17:44] LABS: Blood Urea Nitrogen 29 mg/dl (9-20); Creatinine Clearance Estimated 40 mL/min (50-200); Estimated Glomerular Filt Rate 35 ml/min (>60); GFR (African American) 43 ML/MIN (>60)
[2024-04-09 17:45] LABS: Anion Gap 11.3 mEq/L (5-15); Calcium 9.3 mg/dl (8.4-10.2); Carbon Dioxide 29 mmol/L (22.0-30.0); Glucose 232 mg/dl (74-100)
--- NOTE | 2024-04-09 18:03 | PC.NURSE ---
PT HAS DONE FAIR TODAY. HE HAS HAD ONE EPISODE OF NAUSEA AND HAS C/O A HEADACHE TODAY. MEDICATED PER MAR. HIS BLOOD PRESSURE HAS BEEN VERY DIFFICULT TO GET UNDER CONTROL. REPORTS NO OTHER PAINS OR CONCERNS. OTHER VITAL SIGNS STABLE.
[2024-04-09] MEDS: GABAPENTIN 300MG CAPSULE 300 MG PO (20:30)
[2024-04-09] MEDS: MAGNESIUM OXIDE 400MG TABLET 400 MG PO (20:30)
[2024-04-09] MEDS: PANTOPRAZOLE 40MG TABLET 40 MG PO (20:33)
[2024-04-09 20:46] LABS: POC Glucose,Bedside 228 (70-110)
--- NOTE | 2024-04-09 21:03 | EXP.EVENT.NO ---
Noted patient's blood sugars were beginning to increase above 200. Long-acting insulin restarted that was given to him in long-term care. Changed to before meals and at bedtime fingersticks with before meals and at bedtime low sliding scale. Diet changed to diabetic diet 1999 fallon
[2024-04-09] MEDS: INSULIN GLARGINE 100 UNITS/ML 3ML FLEXPEN 10 UNIT SUBCUT (21:29)
[2024-04-10] VITALS: TEMP 36.2
[2024-04-10 02:00] VITALS: BP 125/70; PULSE 80; RESP 17; TEMP 36.6; O2SAT 94
[2024-04-10 04:00] VITALS: BP 127/68; PULSE 81; RESP 18; TEMP 36.7; O2SAT 90; BMI 35.0
[2024-04-10] MEDS: ACETAMINOPHEN 325MG TAB 650 MG PO ×2 (04:36→09:04)
[2024-04-10 06:00] VITALS: BP 128/73; PULSE 74; RESP 16; TEMP 36.6; O2SAT 96
[2024-04-10 06:08] LABS: POC Glucose,Bedside 149 (70-110)
--- NOTE | 2024-04-10 07:35 | P.DS_ITS ---
General Admission date:: 04/09/24 Discharge date: 04/10/24 HPI HPI HPI: This long-term care patient, came to the emergency room earlier today due to elevated blood pressure and kidney function decreased.. Patient was worked up and released back to long-term care. After being at long-term care blood pressure remained elevated he was sent back to the emergency room.. Medication is being used to lower his blood pressure, he is stable at the present time but with the decrease in renal function and the continued hypertension patient will be admitted to the floor. Cardiology consult will be made. See if adjusting medications can bring this gentleman's blood pressure down, while trying to preserve renal function. As his GFR is dropped to 33 he has proteinuria and hematuria Noted on CT scan significant amount of calcium in the pancreas, diagnosis was chronic pancreatitis, he is also status post prostatectomy. Hospital Course Hospital Course Hospital Course: 68-year-old male with history of alcoholism, hypertension, COPD, diabetes. [place] [facility] [place]. Presented twice to the ER with elevated blood pressure and NAPOLEON. Case discussed with ER physician, request admission for further treatment of blood pressure and kidney dysfunction. Medicine agreed to admit. Blood pressure addressed aggressively and admission. Levaquin was held as there is no clear indication for treatment of a UTI. Culture remains negative at discharge. Blood pressure better controlled. Will need repeat labs in 3 to 4 days to monitor kidney function and electrolytes. Stable to discharge back to nursing facility for management. Problems addressed as follows: Malignant hypertension NAPOLEON -Blood pressure on arrival ranged from systolic 170-200. Unclear the actual source. Unclear if patient is in pain and just not verbalized. Aggressive treatment with increasing carvedilol, one-time dose of irbesartan, and addition of hydralazine and nifedipine. Saw gradual improvement. Blood pressure by morning of discharge normal at 133/68. Recommend continuing carvedilol 25 mg twice daily, nifedipine extended release 30 mg daily and hydralazine 25 mg 3 times a day as needed for systolic blood pressure greater than 160. Hold on REENA or ARB in the setting of NAPOLEON. -Kidney function baseline appears to be abnormal with stage III CKD. Baseline approximately 1.4-1.8. During admission creatinine 1.9-2.4. Making good urine however. Creatinine clearance has not changed significantly. BUN remained stable. Suspect slight bump is due to hypertension and one-time dose of irbesartan. Repeat labs in 3 to 4 days including CBC, CMP, magnesium. Chronic pancreatitis without pain; continue Zenpep with meals Continue gabapentin 300 mg twice daily for the History of diabetes: A1c during admission 7.4, recommend resuming insulin glargine 10 units nightly due to increased p.o. intake. Hematuria and proteinuria without signs of infection, secondary to history of kidney dysfunction and now uncontrolled hypertension. Recommend repeat urinalysis in 2 weeks. Exam Data for Last 24 hours Vital signs and Labs for Last 24 Hours: Temp Pulse Resp BP Pulse Ox O2 Del Method O2 Flow Rate 97.9 F 74 16 128/73 96 Room Air 97 04/10/24 06:00 04/10/24 06:00 04/10/24 06:00 04/10/24 06:00 04/10/24 06:00 04/10/24 06:00 04/09/24 01:00 Laboratory Results - last 24 hr 04/09/24 05:50: Lipase 21 L 04/09/24 11:03: POC Glucose 215 H 04/09/24 16:32: POC Glucose 195 H 04/09/24 16:55: Sodium 137, Potassium 4.3, Chloride 101, Carbon Dioxide 29, Anion Gap 11.3, BUN 29 H, Creatinine 1.90 H, Estimated Creat Clear 40, Estimated GFR 35 L, Est GFR ( Amer) 43 L, Glucose 232 H D, Calcium 9.3 04/09/24 20:29: POC Glucose 228 H 04/10/24 06:02: POC Glucose 149 H I & O for Last 24 hours: Intake & Output 04/07/24 04/08/24 04/09/24 04/10/24 23:59 23:59 23:59 23:59 Intake Total 1205 / 1205 Output Total 0 / 0 Balance 1205 / 1205 Weight 77.111 kg 75.342 kg 104.961 kg Constitutional Constitutional: no acute distress, thin and chronically ill appearing *Routine HEENT Exam Head: Present normocephalic Eye: Present EOMI and PERRL ENT: Present mucous membranes moist Comments: Bitemporal wasting *Routine Neck Exam Neck: Present supple; Absent lymphadenopathy *Routine Respiratory Exam Respiratory: Present prolonged expiratory phase; Absent rhonchi, wheezes or crackles *Routine Cardiovascular Exam Cardiovascular: Present RRR *Routine Abdominal Exam Abdominal: Present soft and normoactive bowel sounds; Absent tenderness *Routine Rectal Exam Patient deferred: visual exam *Routine Exam Patient deferred: penile exam *Routine Extremities Exam Extremities: Absent cyanosis, clubbing or edema *Routine Skin Exam Skin: Present warm; Absent rash *Routine Neurological Exam Neurological: Present alert, normal reflexes and moving all extremities; Absent altered mental status Comments: Oriented to self and place. Decreased sensation in feet. Appears at baseline mentation Results Data Completed and Pending Labs on day of discharge: Labs from last 24 hours 04/10/24 04/09/24 04/09/24 06:02 20:29 16:55 Sodium 137 Potassium 4.3 Chloride 101 Carbon Dioxide 29 Anion Gap 11.3 BUN 29 H Creatinine 1.90 H Estimated Creat Clear 40 Estimated GFR 35 L Est GFR ( Amer) 43 L Glucose 232 H D POC Glucose 149 H 228 H Calcium 9.3 Lipase 04/09/24 04/09/24 04/09/24 16:32 11:03 05:50 Sodium Potassium Chloride Carbon Dioxide Anion Gap BUN Creatinine Estimated Creat Clear Estimated GFR Est GFR ( Amer) Glucose POC Glucose 195 H 215 H Calcium Lipase 21 L DS: Diagnosis Discharge Diagnosis (1) Malignant hypertension: Status: Acute Code(s): I10 - Essential (primary) hypertension (2) NAPOLEON (acute kidney injury): Status: Acute Code(s): N17.9 - Acute kidney failure, unspecified (3) Hypertension: Status: Acute Code(s): I10 - Essential (primary) hypertension (4) Proteinuria: Status: Acute Code(s): R80.9 - Proteinuria, unspecified (5) Hematuria: Status: Acute Code(s): R31.9 - Hematuria, unspecified (6) Severe uncontrolled hypertension: Status: Acute Code(s): I10 - Essential (primary) hypertension Meds Home Medications and Allergies Home Medications ?Medication ?Instructions ?Recorded ?Confirmed ?Type fluticasone fur. 200 mcg-umeclid 1 inh inhalation DAILY 05/06/23 04/09/24 Hi story 62.5 mcg-vilant 25 mcg inhalat.powder (Trelegy Ellipta) levocetirizine 5 mg tablet 5 mg PO HS 05/06/23 04/09/24 History yiaidw-srcidkiw-lekanaa 1 cap PO AC 05/06/23 04/09/24 History 10,000-32,000-42,000 unit capsule,delayed rel (Zenpep) magnesium oxide 400 mg (241.3 mg 400 mg PO BID 05/06/23 04/09/24 History magnesium) tablet simvastatin 40 mg tablet 40 mg PO HS 05/06/23 04/09/24 History thiamine HCl (vitamin B1) 100 mg 100 mg PO DAILY 05/06/23 04/09/24 History tablet linagliptin 5 mg tablet (Tradjenta) 5 mg PO DAILY 05/07/23 04/09/24 History multivitamin 1 tab PO DAILY Supplement 07/01/23 04/09/24 History acetaminophen 500 mg tablet 500 mg PO Q4HP PRN pain/fever 07/22/23 04/09/24 History dextromethorphan-guaifenesin 10 10 ml PO BID 07/22/23 04/09/24 History mg-100 mg/5 mL oral liquid albuterol sulfate 90 mcg/actuation 2 inh inhalation QID 30 days #0 07/23/23 04/09/24 Rx aerosol inhaler (Ventolin HFA) grams colchicine 0.6 mg tablet 0.6 mg PO DAILY #30 tabs 07/27/23 04/09/24 Rx gabapentin 300 mg capsule 300 mg PO BID 30 days #60 caps 03/28/24 04/09/24 Rx allopurinol 100 mg tablet 100 mg PO BID 04/09/24 04/09/24 History diclofenac sodium 1 % topical gel 0 g topical Q8HP PRN KNEE PAIN 04/09/24 04/09/24 History duloxetine 60 mg capsule,delayed 60 mg PO DAILY 04/09/24 04/09/24 History release ibuprofen 800 mg tablet 800 mg PO BID 04/09/24 04/09/24 History insulin glargine 100 unit/mL (3 10 unit SQ HS 04/09/24 04/09/24 History mL) subcutaneous pen (Basaglar KwikPen U-100 Insulin) insulin regular human 100 unit/mL 0 sliding scale dose SQ BID 04/09/24 04/09/24 History (3 mL) subcutaneous pen (Novolin R FlexPen) metformin 500 mg tablet 500 mg PO BIDWMEAL 04/09/24 04/09/24 History omeprazole 20 mg tablet,delayed 20 mg PO DAILY 04/09/24 04/09/24 History release polyethylene glycol 400 1 % eye 2 drp ophthalmic (eye) DAILY 04/09/24 04/09/24 History drops (Visine Dry Eye Relief) quetiapine 25 mg tablet 75 mg PO HS 04/09/24 04/09/24 History carvedilol 25 mg tablet 25 mg PO BID 30 days #60 tabs 04/10/24 Rx hydralazine 25 mg tablet 25 mg PO TID PRN SBP >160 30 days 04/10/24 Rx #90 tabs nifedipine 30 mg tablet,extended 30 mg PO DAILY 30 days #30 tabs 04/10/24 Rx release 24 hr New Prescriptions to Start Prescriptions: carvedilol Alphonso Auguste hydralazine Molina,Alphonso nifedipine Alphonso Auguste Allergies Allergy/AdvReac Type Severity Reaction Status Date / Time No Known Allergies Allergy Verified 04/08/24 12:16 Discharge Plan Disposition Patient Disposition: er Intermediate Care Fac Condition: Fair Discharge Order Discharge Orders: Discharge Order (Routine); Ordered 04/10/24 Ordered By: Alphonso Auguste Follow up Plan Prescriptions/Medication Reconciliation: New nifedipine 30 mg Tablet Extended Release 24hr 30 mg PO DAILY 30 Days Qty: 30 0RF carvedilol 25 mg Tablet 25 mg PO BID 30 Days Qty: 60 0RF hydralazine 25 mg Tablet 25 mg PO TID PRN (Reason: SBP >160) 30 Days Qty: 90 0RF Continued colchicine 0.6 mg tablet 0.6 mg PO DAILY Qty: 30 2RF gabapentin 300 mg capsule 300 mg PO BID 30 Days Qty: 60 2RF thiamine HCl (vitamin B1) 100 mg tablet 100 mg PO DAILY Patient Comments: TAKE ONE TABLET BY MOUTH EVERY DAY simvastatin 40 mg tablet 40 mg PO HS Patient Comments: TAKE ONE TABLET BY MOUTH EVERY DAY AT BEDTIME magnesium oxide 400 mg (241.3 mg magnesium) tablet 400 mg PO BID Patient Comments: TAKE ONE TABLET BY MOUTH TWICE DAILY levocetirizine 5 mg tablet 5 mg PO HS Patient Comments: TAKE ONE TABLET BY MOUTH EVERY DAY IN THE EVENING Zenpep 10,000-32,000 -42,000 unit capsule,delayed release(DR/EC) 1 cap PO AC Patient Comments: TAKE ONE CAPSULE BY MOUTH THREE TIMES DAILY Trelegy Ellipta 200-62.5-25 mcg blister with device 1 inh INHALATION DAILY Patient Comments: INHALE 1 PUFF BY MOUTH DAILY DIRECTED Tradjenta 5 mg Tablet 5 mg PO DAILY multivitamin Tablet 1 tab PO DAILY Patient Comments: TAKE ONE TABLET BY MOUTH EVERY DAY quetiapine 25 mg Tablet 75 mg PO HS metformin 500 mg Tablet 500 mg PO BIDWMEAL ibuprofen 800 mg Tablet 800 mg PO BID allopurinol 100 mg tablet 100 mg PO BID Novolin R FlexPen 100 unit/mL (3 mL) Insulin Pen 0 sliding scale dose SQ BID Protocol: Insulin Corrective Low-Dose Regimen Condition: Fingerstick Blood Glucose Dose/Route: Insulin Units Condition: 151-200 mg/dl Dose/Route: 2 unit/SQ Condition: 201-250 mg/dl Dose/Route: 4 units/SQ Condition: 251-300 mg/dl Dose/Route: 6 units/SQ Condition: 301-350 mg/dl Dose/Route: 8 units/SQ Condition: 351-400 mg/dl Dose/Route: 10 units/SQ Condition: Over 400 mg/dl Dose/Route: 12 units/SQ and call MD Protocol Text: Low Intensity Sliding Scale Insulin duloxetine 60 mg Capsule,Delayed Release(Dr/Ec) 60 mg PO DAILY insulin glargine [Basaglar KwikPen U-100 Insulin] 100 unit/mL (3 mL) Insulin Pen 10 unit SQ HS omeprazole 20 mg Tablet,Delayed Release (Dr/Ec) 20 mg PO DAILY diclofenac sodium 1 % Gel 0 g TOPICAL Q8HP PRN (Reason: KNEE PAIN) Rx Instructions: APPLY TO BOTH KNEES TOPICALLY EVERY 8 HOURS NEEDED FOR PAIN. Visine Dry Eye Relief 1 % Drops 2 drp OPHTHALMIC (EYE) DAILY dextromethorphan-guaifenesin 10-100 mg/5 mL Liquid 10 ml PO BID acetaminophen 500 mg Tablet 500 mg PO Q4HP PRN (Reason: pain/fever) albuterol sulfate [Ventolin HFA] 90 mcg/actuation HFA aerosol inhaler 2 inh INHALATION QID 30 Days Qty: 0 0RF Patient Comments: INHALE TWO PUFFS BY MOUTH EVERY 6 HOURS NEEDED --SHAKE WELL BEFORE USE-- Discontinued carvedilol 12.5 mg tablet 12.5 mg PO BID levofloxacin 750 mg tablet 750 mg PO DAILY 7 Days Qty: 7 0RF Problem Reconciliation Problems Reviewed?: Yes Patient Discharge Instructions ACTIVITY: Continue current activity DIET: continue same diet Patient Instructions: Acute Kidney Injury, DI for Chest Pain Print Language: Botswanan Providers Primary Care Provider: Provider,Referral Admit Provider: Alphonso Auguste Attending Provider: Alphonso Auguste
[2024-04-10 07:40] LABS: Basophils # 0.1 K/mm3 (0-0.2); Basophils % 0.7 % (0.1-2.0); Eosinophils # 0.3 K/mm3 (0.0-0.4); Eosinophils % 2.5 % (0.1-12.0); Hematocrit 39.3 % (42.0-52.0); Hemoglobin 12.9 g/dL (14.1-18.0); Mean Corpuscular HGB Conc 32.9 g/dL (31.8-35.4); Mean Corpuscular Hemoglobin 29.3 pg (27.0-31.2); Mean Corpuscular Volume 89.1 fl (80-94); Mean Platelet Volume 8.2 fl (7.4-10.4); Monocytes # 0.5 K/mm3 (0.1-1.0); Monocytes % 4.7 % (1.7-9.3); Neutrophils # 7.3 K/mm3 (1.8-7.8); Neutrophils % 72.1 % (37.0-80.0); Platelet Count 158 K/mm3 (142-424); Red Blood Count 4.42 M/mm3 (4.60-6.20); Red Cell Distribution Width 16.2 % (11.5-17.5); White Blood Count 10.2 K/mm3 (4.8-10.8)
[2024-04-10 08:00] VITALS: BP 133/68; PULSE 86; RESP 21; TEMP 36.7; O2SAT 92
[2024-04-10 08:35] LABS: Alanine Aminotransferase 13 U/L (12-78); Albumin Level 3.5 g/dl (3.5-5.0); Albumin/Globulin Ratio 1.5 (1.1-1.8); Alkaline Phosphatase 101 U/L (38-126); Anion Gap 9.5 mEq/L (5-15); Aspartate Amino Transferase 25 U/L (17-59); Bilirubin,Total 0.6 mg/dl (0.2-1.3); Blood Urea Nitrogen 33 mg/dl (9-20); Carbon Dioxide 30 mmol/L (22.0-30.0); Chloride 102 mmol/L (98-107); Creatinine Clearance Estimated 44 mL/min (50-200); Estimated Glomerular Filt Rate 27 ml/min (>60); GFR (African American) 33 ML/MIN (>60); Globulin 2.3 g/dL (1.3-3.2); Glucose 167 mg/dl (74-100); Magnesium 2.5 mg/dl (1.6-2.3); Potassium 4.5 mmoL/L (3.5-5.1); Sodium 137 mmol/L (136-145); Total Protein,Serum 5.8 g/dl (6.3-8.2)
[2024-04-10] MEDS: NIFEdipine XL 30MG TABLET 30 MG PO (09:04)
[2024-04-10] MEDS: METFORMIN 500MG TABLET 500 MG PO (09:04)
[2024-04-10] MEDS: THIAMINE 100MG TABLET 100 MG PO (09:05)
[2024-04-10] MEDS: GABAPENTIN 300MG CAPSULE 300 MG PO (09:05)
[2024-04-10] MEDS: LIPASE/PROTEASE/AMYLASE 1 EACH CAPSULE.DR PO (09:05)
[2024-04-10] MEDS: MAGNESIUM OXIDE 400MG TABLET 400 MG PO (09:05)
[2024-04-10] MEDS: DULOXETINE 30MG CAPSULE.DR 60 MG PO (09:05)
[2024-04-10] MEDS: NICOTINE 14MG/24HRS PATCH 14 MG TD (09:07)
[2024-04-10] MEDS: CARVEDILOL 25MG TABLET 25 MG PO (09:07)
[2024-04-10] MEDS: HYDRALAZINE HCL 25MG TABLET 25 MG PO (09:07)
[2024-04-10 09:37] LABS: Hemoglobin A1C 7.4 % (4.0-6.0)
--- NOTE | 2024-04-10 09:51 | PC.NURSE ---
MEENA, PT'S DAUGHTER, WAS NOTIFIED THAT PT WAS BEING DISCHARGED BACK TO THE LONGTERM TODAY. UPDATE WAS ALSO GIVEN TO THE DAUGHTER. GENE WAS ASKED IF SHE WAS ABLE TO TAKE HIM BACK TO [facility] TODAY. SHE STATED THAT SHE HAD A MIGRAINE AND WOULD TRY TO HAVE HER COME TO TAKE HIM TO [facility]. SHE STATED THAT SHE WOULD CALL ME BACK.
--- NOTE | 2024-04-10 10:12 | PC.NURSE ---
Addendum entered by Vivien Nova RN 04/10/24 10:16: REPORT GIVEN TO SKILLED NURSING AT THIS TIME Original Note: ATTEMPTED TO CALL REPORT TO THE SKILLED NURSING. NO ANSWER. WILL TRY AGAIN.
[2024-04-10] MEDS: FLUTICASONE/UMECLIDIN/VILANTER 200/62.5/25MCG INHALER 1 PUFF IH (10:55)
[2024-04-12 02:57] LABS: POC Glucose,Bedside 118 (70-110)
== END 2024-04-10 10:57 ==
LOC: ER 22:43 → 2ND 04-09 00:36
PROVIDERS: Nurse Practitioner Family; Admitting Provider Internal Medicine Adolescent Medicine; Emergency Provider Emergency Medicine; Visit Provider Internal Medicine Adolescent Medicine
DX: N17.9 Acute kidney failure, unspecified (principal); I12.9 Hypertensive chronic kidney disease with stage 1 through stage 4 chronic kidney disease, or unspecified chronic kidney disease; R80.9 Proteinuria, unspecified; R31.9 Hematuria, unspecified; E11.22 Type 2 diabetes mellitus with diabetic chronic kidney disease; Z79.4 Long term (current) use of insulin; F17.210 Nicotine dependence, cigarettes, uncomplicated; Z79.899 Other long term (current) drug therapy; N18.30 Chronic kidney disease, stage 3 unspecified; Z86.16 Personal history of COVID-19
CPT/HCPCS: 36415; 80048; 80053; 82962; 83036; 83690; 83735; 85025; 93005; 99285; G0378; J1920; J2270; J2405; J3475

== ENCOUNTER 2024-04-29 11:24 | Outpatient (CLI) | payer MEDICARE, MEDICAID, SELFPAY ==
--- NOTE | 2024-04-29 | CA_ITS ---
APPROVED REPORT Exam: Pharmacologic Technologist: Evelyn Brambila Ht: 5 ft 8 in Wt: 168 lbs BSA: 1.90 m2 HR: 89 bpm BP: 155/75 mmHg Rhythm: NSR Medical History Medical History: Diabetes, HTN, Hyperlipidemia Allergies: No known drug allergies Stress Test Details Test: Pharmacologic stress testing performed using 0.4 mg of regadenoson per 5 mL given IV over 10 seconds. HR Resting HR: 89 bpm Max Heart Rate (APMHR): 152.140238 bpm Max HR Achieved: 102 bpm Target HR (85% APMHR): 129.439039 bpm % of APMHR: 67.11 Recovery HR: 95 bpm BP Resting BP: 155.0/75.0 mmHg Max BP: 155.0/75.0 mmHg Recovery BP: 143.0/71.0 mmHg ECG Clinical Reason for Termination: Completed protocol Stress ECG Conclusion No symptoms Occasional PVC No significant changes with ST Unremarkable Lexiscan stress Electronically signed by : Anila Beckman MD 05/02/2024 12:53:22
--- NOTE | 2024-04-29 11:25 | NM_ITS ---
APPROVED REPORT Exam: Nuclear Stress Test Indication: SOB, Abnormal EKG, HTN, DM, High cholesterol, Tobacco use Patient Location: Outpatient Stress Tech: Evelyn Brambila HI Tech:Shae Cid, ARRT, RT (R)(N) Ht: 5 ft 8 in Wt: 170 lbs HR: 89 bpm BP: 155/75 mmHg BSA: 1.91 m2 TID: 1.01 BMI: 25.8 History: SOB, Abnormal EKG, HTN, DM, High cholesterol, Tobacco use Procedure: Patient received 0.4 mg of intravenous Lexiscan, resting heart rate 89 bpm, resting blood pressure 155/75 mmHg, with Lexiscan maximum heart rate achieved was 102 bpm which is % of the maximum predicted heart rate and blood pressure was 154/77 mmHg. With Lexiscan, patient denied any complaint of chest pain. Cardiac Stress and Resting SPECT Images: Cardiac Stress and Resting SPECT images were obtained using technetium 99m Myoview 32.7 mCi stress and 10.17 mCi at rest. Resting and stress imaging in supine positions demonstrate a large sized, moderate, fixed perfusion defect in the inferior LV wall. This is no longer visualized with prone stress imaging. Findings are suggestive of diaphragmatic attenuation. Gating imaging demonstrates normal global and regional LV systolic function. LVEF is calculated at 62%. Conclusion: Diaphragmatic attenuation is present. No definite evidence of fixed or reversible perfusion defects. Gating imaging demonstrates normal global and regional LV systolic function. LVEF is calculated at 62%. Electronically signed by : Anila Beckman MD 05/02/2024 12:59:10
--- NOTE | 2024-04-29 12:35 | CA_ITS ---
APPROVED REPORT EXAM: Comprehensive 2D, Doppler, and color-flow Echocardiogram Dam Tender: Lily Pearson RVT Ht: 5 ft 8 in Wt: 168lbs BSA: 1.90 BP: 145/73 mmHg Indications: ABN EKG,COPD,SMOKER,FATIGUE,HTN,SOA,DM 2D Dimensions IVSd 0.88 cm M: 0.6-1.2 LVEF (Visual) 58.10 % PWd 1.05 cm M: 0.6 - 1.2 LA Volume 35.10 mL LVDd 4.37 cm M: 4.2 - 5.9 LA Volume Index 18.47 mL/m2 (M/F) 16-34 LVDs 3.04 cm M: 2.5 - 4.0 M-Mode Dimensions LA Diam 3.95 cm (1.9-4.0) TAPSE 2.54 (<1.7) LV Diastology E Decel Time 200 (160-240 msec) E/A Ratio 0.8 Aortic Valve KEMAL Index 1.20 cm2/m2 AoV Peak Liborio. 156.0 (50-130 cm/s) AO Peak GR. 9.70 mmHg AO Mean GR. 5.90 (<5 mmHg) AO VTI 32.0 (18-25 cm) KEMAL (VTI) 2.33 (2.5-4.5 cm2) Mitral Valve MV E Max Liborio. 87.0 (40-130 cm/s) MV A Velocity 115.0 (40-130 cm/s) E/A Ratio 0.75 MV PHT 59.0 ms Pulmonary Valve PV Peak Velocity 98.0 (50-150 cm/s) Tricuspid Valve TR P. Velocity 232.00 cm/s RAP Estimate 10.00 mmHg RVSP 31.50 mmHg Left Ventricle The left ventricle is normal size. The left ventricular systolic function is normal. The left ventricular ejection fraction is within the normal range. There is increased LV wall thickness. There is normal LV segmental wall motion. Transmitral Doppler flow pattern suggests impaired LV relaxation. LVEF is 55%. Right Ventricle The right ventricle is normal size. The right ventricular systolic function is normal. Atria The left atrium size is normal. The right atrium size is normal. There is no Doppler evidence of interatrial shunt. Aortic Valve Aortic valve is mildly thickened. There is no aortic valvular stenosis. No aortic regurgitation is present. Mitral Valve The mitral valve is normal in structure. No evidence of mitral valve stenosis. Mild mitral regurgitation. Tricuspid Valve Tricuspid valve is grossly normal in structure and function. Trace tricuspid regurgitation. There is insufficient TR jet to estimate RVSP. Pulmonic Valve The pulmonary valve is normal in structure. Trace pulmonic regurgitation. Great Vessels The aortic root is normal in size. The ascending aorta is normal in size. IVC is normal in size and collapses >50% with inspiration. Pericardium There is no pericardial effusion. Other Information Study Quality: Fair Conclusion Normal biventricular systolic function. Mild MR. Electronically signed by : Anila Beckman MD 05/09/2024 00:33:30
[2024-04-29] MEDS: SODIUM CHLORIDE 0.9% 10ML SYR (RAD ONLY) 10 ML IV ×2 (13:18)
[2024-04-29] MEDS: REGADENOSON 0.4MG/5ML SYRINGE 0.4 MG IV (13:18)
[2024-04-29] MEDS: ISOTOPE MYOVIEW (PER STUDY) 1 DOSE IV (13:18)
== END 2024-04-29 23:59 | disposition home or self-care (01) ==
LOC: RAD 11:25
PROVIDERS: PCP Family Medicine; Visit Provider Internal Medicine
DX: R06.00 Dyspnea, unspecified (principal); R94.31 Abnormal electrocardiogram [ECG] [EKG]; R42 Dizziness and giddiness; I10 Essential (primary) hypertension
CPT/HCPCS: 78452; 93017; 93018; 93306; A9502; J2785

== ENCOUNTER 2024-05-10 14:58 | Outpatient (CLI) | payer MEDICARE, MEDICAID, SELFPAY ==
[2024-05-10 16:26] LABS: Basophils # 0.1 K/mm3 (0-0.2); Basophils % 0.9 % (0.1-2.0); Eosinophils # 0.4 K/mm3 (0.0-0.4); Eosinophils % 3.1 % (0.1-12.0); Hematocrit 40.7 % (42.0-52.0); Hemoglobin 13.7 g/dL (14.1-18.0); Lymphocytes # 3.7 K/mm3 (0.7-4.5); Lymphocytes % 31.1 % (10-50); Mean Corpuscular HGB Conc 33.7 g/dL (31.8-35.4); Mean Corpuscular Hemoglobin 30.1 pg (27.0-31.2); Mean Corpuscular Volume 89.4 fl (80-94); Mean Platelet Volume 7.8 fl (7.4-10.4); Monocytes # 0.7 K/mm3 (0.1-1.0); Monocytes % 6.2 % (1.7-9.3); Neutrophils % 58.6 % (37.0-80.0); Platelet Count 238 K/mm3 (142-424); Red Blood Count 4.55 M/mm3 (4.60-6.20); Red Cell Distribution Width 15.8 % (11.5-17.5); White Blood Count 11.9 K/mm3 (4.8-10.8)
[2024-05-10 18:06] LABS: Alanine Aminotransferase 42 U/L (12-78); Albumin Level 4.3 g/dl (3.5-5.0); Alkaline Phosphatase 149 U/L (38-126); Anion Gap 15.6 mEq/L (5-15); Aspartate Amino Transferase 39 U/L (17-59); Bilirubin,Direct 0.3 mg/dl (0.0-0.4); Bilirubin,Total 0.3 mg/dl (0.2-1.3); Blood Urea Nitrogen 44 mg/dl (9-20); Carbon Dioxide 22 mmol/L (22.0-30.0); Chloride 106 mmol/L (98-107); Chol/HDL Ratio 3.8 (1-3.5); Cholesterol 124 mg/dl (140-200); Estimated Glomerular Filt Rate 22 ml/min (>60); GFR (African American) 26 ML/MIN (>60); Glucose 289 mg/dl (74-100); HDL Cholesterol 33 mg/dl (40-60); Potassium 5.6 mmoL/L (3.5-5.1); Sodium 138 mmol/L (136-145); Total Protein,Serum 7.1 g/dl (6.3-8.2)
[2024-05-10 18:13] LABS: Free T4 (Free Thyroxine) 0.95 ng/dl (0.78-2.19)
[2024-05-10 18:14] LABS: Triglycerides 468 mg/dl (30-150)
[2024-05-10 18:18] LABS: Direct LDL Cholesterol < 30.00 mg/dL (100-129)
[2024-05-10 18:36] LABS: Thyroid Stimulating Hormone 3.31 uIU/mL (0.465-4.68)
== END 2024-05-10 23:59 | disposition home or self-care (01) ==
LOC: LAB 14:59
PROVIDERS: Visit Provider Internal Medicine
DX: R94.31 Abnormal electrocardiogram [ECG] [EKG] (principal); I10 Essential (primary) hypertension; R42 Dizziness and giddiness; Z72.0 Tobacco use; E11.42 Type 2 diabetes mellitus with diabetic polyneuropathy; N17.9 Acute kidney failure, unspecified
CPT/HCPCS: 36415; 80048; 80061; 80076; 83735; 84439; 84443; 85025

== ENCOUNTER 2024-06-29 14:47 | Outpatient (CLI) | payer MEDICARE, MEDICAID, SELFPAY ==
[2024-06-29 15:29] LABS: Basophils # 0.1 K/mm3 (0-0.2); Basophils % 0.7 % (0.1-2.0); Eosinophils # 0.3 K/mm3 (0.0-0.4); Eosinophils % 3.2 % (0.1-12.0); Hematocrit 44.4 % (42.0-52.0); Hemoglobin 14.5 g/dL (14.1-18.0); Lymphocytes # 2.3 K/mm3 (0.7-4.5); Lymphocytes % 21.7 % (10-50); Mean Corpuscular HGB Conc 32.7 g/dL (31.8-35.4); Mean Corpuscular Hemoglobin 28.6 pg (27.0-31.2); Mean Corpuscular Volume 87.6 fl (80-94); Mean Platelet Volume 10.3 fl (7.4-10.4); Monocytes # 1.1 K/mm3 (0.1-1.0); Monocytes % 9.9 % (1.7-9.3); Neutrophils # 6.8 K/mm3 (1.8-7.8); Neutrophils % 63.8 % (37.0-80.0); Platelet Count 250 K/mm3 (142-424); Red Blood Count 5.07 M/mm3 (4.60-6.20); Red Cell Distribution Width 14.6 % (11.5-17.5); White Blood Count 10.7 K/mm3 (4.8-10.8)
[2024-06-29 15:59] LABS: Alanine Aminotransferase 32 U/L (12-78); Albumin Level 4.8 g/dl (3.5-5.0); Alkaline Phosphatase 158 U/L (38-126); Anion Gap 16.7 mEq/L (5-15); Aspartate Amino Transferase 30 U/L (17-59); Bilirubin,Direct 0.2 mg/dl (0.0-0.4); Bilirubin,Total 0.2 mg/dl (0.2-1.3); Blood Urea Nitrogen 39 mg/dl (9-20); Carbon Dioxide 26 mmol/L (22.0-30.0); Chloride 103 mmol/L (98-107); Chol/HDL Ratio 3.2 (1-3.5); Cholesterol 110 mg/dl (140-200); Estimated Glomerular Filt Rate 30 ml/min (>60); GFR (African American) 36 ML/MIN (>60); Glucose 187 mg/dl (74-100); HDL Cholesterol 34 mg/dl (40-60); Magnesium 2.2 mg/dl (1.6-2.3); Potassium 4.7 mmoL/L (3.5-5.1); Sodium 141 mmol/L (136-145); Total Protein,Serum 7.4 g/dl (6.3-8.2); Triglycerides 332 mg/dl (30-150); VLDL Cholesterol 66 mg/dL (0-40)
[2024-06-29 16:45] LABS: Direct LDL Cholesterol < 30.00 mg/dL (100-129)
== END 2024-06-29 23:59 | disposition home or self-care (01) ==
LOC: LAB 14:51
PROVIDERS: PCP Family Medicine; Visit Provider Internal Medicine
DX: I10 Essential (primary) hypertension (principal); R94.31 Abnormal electrocardiogram [ECG] [EKG]; R42 Dizziness and giddiness; E11.42 Type 2 diabetes mellitus with diabetic polyneuropathy; Z72.0 Tobacco use; N17.9 Acute kidney failure, unspecified
CPT/HCPCS: 36415; 80048; 80061; 80076; 83735; 85025

== ENCOUNTER 2024-10-19 15:20 | Outpatient (CLI) | payer MEDICARE, MEDICAID, SELFPAY ==
[2024-10-19 16:10] LABS: Basophils # 0.1 K/mm3 (0-0.2); Basophils % 0.4 % (0.1-2.0); Eosinophils # 0.3 Kmm3 (0.0-0.4); Eosinophils % 2.3 % (0.1-12.0); Hematocrit 42.1 % (42.0-52.0); Immature Granulocytes # 0.12 10^3uL; Immature Granulocytes % 0.9 %; Lymphocytes # 2.6 K/mm3 (0.7-4.5); Lymphocytes % 20.7 % (10-50); Mean Corpuscular HGB Conc 30.9 g/dL (31.8-35.4); Mean Corpuscular Hemoglobin 26.6 pg (27.0-31.2); Mean Corpuscular Volume 86.1 fl (80-94); Mean Platelet Volume 10.1 fl (7.4-10.4); Monocytes # 1.4 K/mm3 (0.1-1.0); Monocytes % 11.1 % (1.7-9.3); Neutrophils # 8.2 K/mm3 (1.8-7.8); Neutrophils % 64.6 % (37.0-80.0); Nucleated Red Blood Cells # 0 10^3/uL; Nucleated Red Blood Cells % 0 %; Platelet Count 303 K/mm3 (142-424); Red Blood Count 4.89 M/mm3 (4.60-6.20); Red Cell Distribution Width 15.6 % (11.5-17.5); Red Cell Distribution Width-SD 48.5 fL; White Blood Count 12.7 K/mm3 (4.8-10.8)
[2024-10-19 17:07] LABS: Alanine Aminotransferase 47 U/L (12-78); Albumin Level 3.9 g/dl (3.5-5.0); Alkaline Phosphatase 162 U/L (38-126); Aspartate Amino Transferase 38 U/L (17-59); Bilirubin,Direct 0.2 mg/dl (0.0-0.4); Bilirubin,Indirect 0.1 mg/dL (0.0-0.9); Bilirubin,Total 0.3 mg/dl (0.2-1.3); Bilirubin,Unconjugated 0.1 mg/dL (0.0-1.1); Blood Urea Nitrogen 57 mg/dl (9-20); Calcium 8.8 mg/dl (8.4-10.2); Carbon Dioxide 24 mmol/L (22.0-30.0); Chloride 103 mmol/L (98-107); Chol/HDL Ratio 2.1 (1-3.5); Cholesterol 69 mg/dl (140-200); Estimated Glomerular Filt Rate 33 ml/min (>60); GFR (African American) 40 ML/MIN (>60); Glucose 233 mg/dl (74-100); HDL Cholesterol 33 mg/dl (40-60); Magnesium 2.8 mg/dl (1.6-2.3); Sodium 133 mmol/L (136-145); Total Protein,Serum 6.3 g/dl (6.3-8.2); Triglycerides 208 mg/dl (30-150); VLDL Cholesterol 42 mg/dL (0-40)
[2024-10-19 17:23] LABS: Free T4 (Free Thyroxine) 1.17 ng/dl (0.78-2.19)
[2024-10-19 17:39] LABS: Thyroid Stimulating Hormone 1.41 uIU/mL (0.465-4.68)
[2024-10-19 17:43] LABS: Direct LDL Cholesterol < 30.00 mg/dL (100-129)
== END 2024-10-19 23:59 | disposition home or self-care (01) ==
LOC: LAB 15:21
PROVIDERS: PCP Family Medicine; Visit Provider Nurse Practitioner
DX: R06.02 Shortness of breath (principal); E11.9 Type 2 diabetes mellitus without complications; I10 Essential (primary) hypertension
CPT/HCPCS: 36415; 80048; 80061; 80076; 83036; 83735; 84439; 84443; 85025

== ENCOUNTER 2024-11-04 12:28 | Outpatient (CLI) | payer MEDICARE, MEDICAID, SELFPAY ==
--- OUTSIDE RECORDS SUMMARY | 2024-09-23 10:00 | XMS_ITS | Encounter Summary ---
Author Organization Healthcare Address [address] [place] [address] Care Team Providers Care Echo Technologist Name Role Phone Shankar Raya MD Primary Care Provider + [phone] Reason for Visit * Reason Comments Consult Pt is a 69 year old female that presents to the clinic on this date for a new patient consult. Pt states he is having lower back pain that he rates a 8/10. Encounter Details Date Type Department Care Team (Late st Contact Info) Description 09/23/2024 10:00 AM EDT Consult [facility] [address] [place] [id number] Ira Neely, CREDIT FRONT OFFICE DEVELOPER [address] [address] CKD (chronic kidney disease) stage 4, GFR 15-29 ml/min ([facility]) (Primary Dx); Essential hypertension; Diabetes mellitus due to underlying condition with diabetic chronic kidney disease, unspecified CKD stage, unspecified whether group home insulin use (CMS/[facility]); Chronic kidney disease-mineral and bone disorder; Anemia due to stage 4 chronic kidney disease; At risk for fluid and electrolyte imbalance; Metabolic acidosis Social History Tobacco Use Types Packs/Day Years Used Date Smoking Tobacco: Every Day Cigarettes Started: 09/23/1974 Smokeless Tobacco: Never Tobacco Cessation:Ready to Q uit: No; Counseling Given: Yes Alcohol Use Standard Drinks/Week Comments Not Currently 0 (1 standard drink = 0.6 oz pur e alcohol) Sex and Gender Information Value Date Recorded Sex Assigned at Not on file Legal Sex Male 6:55 PM EDT Gender Identity Not on file Sexual Orientation Not on file documented as of this encounter Last Filed Vital Signs Vital Sign Reading Time Taken Comments Blood Pressure 100/59 09/23/2024 9:31 AM EDT Pulse 75 09/23/2024 9:31 AM EDT Temperature - - Respiratory Rate 18 09/23/2024 9:31 AM EDT Oxygen Saturation 96% 09/23/2024 9:31 AM EDT Inhaled Oxygen Concentration - - Weight 76.2 kg (168 lb) 09/23/2024 9:31 AM EDT Height 172.7 cm (5' 8 ) 09/23/2024 9:31 AM EDT Body Mass Index 25.54 09/23/2024 9:31 AM EDT documented in this encounter Miscellaneous Notes * Progress Notes - Ira Neely APRN - 09/23/2024 10:00 AM EDT Nephrology Outpatient Consult Note Reason for referral: CKD evaluation Referring Provider: Shankar Raya MD HPI: Noah Rivero is a 69 y.o. male with PMH of DM, HTN, COPD, GERD, gastric cancer, gout, and chronic pancreatitis presents as a new consult at the request of Shankar Raya MD Patient notes a long history of known CKD. He has seen Nephrology in the past, but has not followedwith in 'quite sometime' He notes it is possible he had only see post a previous hospitalization. He has had DM for seveal years, it is not well controlled. His last A1c noted to be 8.9. He does haveneuropathy. Retinopathy status unknown. NO family history of renal disease. His BP had been rather uncontrolled until the last several months. He is currently a [place] resident. His BP medications were recently adjusted. Patients renal function on arrival to [place] was noted to be 1.8, egfr 38. Creatinine 07/15/24 2.4 egfr 27. Most recent creatinine 2.2 egfr 30. Likely baseline 2-2.4. Patient denies any edema, notes stable appetite, no urticaria Denies hematuria, dysuria, abd pain, SOA, CP. I have personally reviewed records from referring provider and other consultants. REVIEW OF SYSTEMS A complete 14-point review of systems was obtained and is negative except as reported in the HPI Medical History[1] Surgical History[2] Family History[3] Social History Tobacco Use Smoking status: Every Day Types: Cigarettes Start date: 09/23/1974 Smokeless tobacco: Never Substance Use Topics Alcohol use: Not Currently Medications Current Medications[4] Allergies[5] PHYSICAL EXAMINATION Visit Vitals BP 100/59 (BP Location: Right arm, Patient Position: Sitting, BP Cuff Size: Adult long) Pulse 75 Resp 18 Ht 1.727 m (5' 8 ) Wt 76.2 kg (168 lb) SpO2 96% BMI 25.54 kg/m?? Smoking Status Every Day BSA 1.91 m?? GA: well developed, well nourished, conversant, NAD EYES: Anicteric sclera, no injection, no discharge HENT: Head is normocephalic and atraumatic. Mucous membranes are moist. NECK: Supple. No visible masses or thyromegaly RESP: Normal resp effort. Lungs clear to auscultation bilaterally. No wheezing, rhonchi or crackles CV: Heart RRR, no murmurs or rubs GI: Abdomen soft, non tender, and non distended. Positive bowel sounds. : No suprapubic tenderness, no CVA tenderness MSK/Ext: No edema. No joint swelling. No cyanosis or clubbing NEURO: Grossly intact. No focal deficits. Cooperative PSYCH: Appropriate mood and affect, AAO SKIN: Normal temperature. No rash or ulcers. No jaundice LAB AND IMAGING RESULTS I have independently reviewed and interpreted the test results and discussed with patient. Labs scanned in to media tab of [facility] from an outside facility. Labs completed on 07/22/24, 06/2024, and 04/2024 ASSESSMENT/PLAN CKD4 HTN DM Anemia of chronic disease At risk for fluid and electrolyte disorders Metabolic acidosis Patient at high risk of rapid disease progression. BS not under control. Would consider stopping metformin given renal function over the last few months. Would increase insulin or other oral agents given risk of lactic acidosis. Agree with peggy. Recent BP medication changes have improved BP, however now lower than ideal given previous extreme. Likely reducing adequate renal perfusion. Would hold hydralazine and not resume unless BP >140/80. Would like to obtain a UA and urine protein if possible prior to next labs. Hgb stable at 12.6. Would obtain iron studies if drops below 11.5. bicarb stable at 20. Would start sodium bicarbonate at 650mg BID if drops below 20. Fluid and electrolytes status stable. RTC in 4 months or sooner if needed Ira Neely APRN [1] Past Medical History: Diagnosis Date Benign neoplasm, unspecified site Tubular adenoma Personal history of malignant neoplasm of prostate History of malignant neoplasm of prostate Personal history of other diseases of the circulatory system History of hypertension Personal history of other diseases of the musculoskeletal system and connective tissue History of gout Personal history of other diseases of the respiratory system History of asthma Personal history of other diseases of the respiratory system History of chronic obstructive lung disease [2] Past Surgical History: Procedure Laterality Date APPENDECTOMY N/A Appendectomy from [facility] COLON SURGERY N/A colon surgery from [facility] PROSTATE SURGERY N/A prostate surgery from [facility] [3] Family History Problem Relation Name Age of Onset Cardiac disorder Other Diabetes Other Hypertension Other [4] Current Outpatient Medications Medication Sig Dispense Refill acetaminophen (Tylenol) 500 MG tablet Take 1 tablet by mouth every 4 hours as needed. albuterol 108 (90 Base) MCG/ACT inhaler Inhale 2 puffs 4 times a day. allopurinol (Zyloprim) 100 MG tablet Take 1 tablet by mouth 2 times a day. carvedilol (Coreg) 12.5 MG tablet Take 1 tablet by mouth 2 times a day with meals. dapagliflozin (Farxiga) 10 MG tablet Take 1 tablet by mouth daily. diclofenac (Voltaren) 1 % topical gel Apply as directed to area dilTIAZem CD (Cardizem CD) 120 MG 24 hr capsule Take 1 capsule by mouth daily. DULoxetine (Cymbalta) [address] capsule Take 1 capsule by mouth daily. Do not crush or chew. Grvzxvuhkrl-Rempewfmn-Pyfbgj (Trelegy Ellipta) 200-62.5-25 MCG/ACT aerosol powder Inhale. gabapentin (Neurontin) 300 MG capsule Take 1 capsule by mouth 2 times a day. Htzpaxcp-Zanwgjbkdgfl-ZAF 400 (VISINE DRY EYE OP) Administer into affected eye(s). guaiFENesin-codeine (Robitussin-AC) 100-10 MG/5ML syrup Take by mouth. hydrALAZINE (Apresoline) 25 MG tablet Take 1 tablet by mouth every 8 hours. ibuprofen (IBU) 800 MG tablet Take 1 tablet by mouth every 6 hours as needed for mild pain. Insulin Glargine (BASAGLAR KWIKPEN SC) Inject 10 Units under the skin nightly. Insulin Regular Human (NOVOLIN R IJ) Inject as directed. ipratropium-albuterol (Duo-Neb) 0.5-2.5 mg/3 mL nebulizer solution Take 3 mL by nebulization every 6 hours as needed for wheezing. losartan-hydroCHLOROthiazide (Hyzaar) 50-12.5 MG tablet Take 1 tablet by mouth daily. magnesium oxide (Mag-Ox) 400 (240 Mg) MG tablet Take 1 tablet by mouth daily. magnesium oxide (Mag-Ox) 400 mg tablet 1 tablet daily. metFORMIN (Glucophage) 500 MG tablet Take 1 tablet by mouth 2 times a day with meals. multivitamin (Theragran) tablet Take 1 tablet by mouth daily. pancrelipase, Hrt-Wgie-Lkrb, (Zenpep) 97[address] units capsule delayed-release particles capsule Take 1 capsule by mouth 3 times a day with meals. simvastatin (Zocor) 40 MG tablet Take 1 tablet by mouth nightly. levocetirizine (Xyzal) 5 MG tablet Take 1 tablet by mouth every evening. (Patient not taking: Reported on 09/23/2024) linaGLIPtin (Tradjenta) 5 MG tablet Take 1 tablet by mouth daily. (Patient not taking: Reported on 09/23/2024) NIFEdipine CC (Adalat CC) 30 MG 24 hr tablet Take 1 tablet by mouth daily before breakfast. Do not crush, chew, or split. (Patient not taking: Reported on 09/23/2024) omeprazole OTC (PriLOSEC OTC) 20 MG EC tablet Take 1 tablet by mouth daily. Do not crush, chew, or split. (Patient not taking: Reported on 09/23/2024) QUEtiapine (SEROquel) 100 MG tablet Take 1 tablet by mouth nightly. (Patient not taking: Reported on 09/23/2024) thiamine (Vitamin B-1) 100 MG tablet Take 1 tablet by mouth daily. (Patient not taking: Reported on09/23/2024) No current facility-administered medications for this visit. [5] No Known Allergies documented in this encounter Plan of Treatment Upcoming Encounters Date Type Department Care Team (Late st Contact Info) Description 02/10/2025 10:40 AM EDT Office Visit [facility] [address] [address] Ira Neely, CREDIT FRONT OFFICE DEVELOPER [address] [address] Scheduled Orders Name Type Priority Associated Diagnoses Orde r Schedule CBC W/O Differential Lab Routine CKD (chronic kidney disease) stage 4, GFR 15-29 ml/min (CMS/[facility]) Expected: 09/23/2024 (Approximate), Expires: 03/25/2026 Protein, Random, Urine with Creatinine Lab Routine CKD (chronic kidney disease) stage 4, GFR 15-29 ml/min (CMS/HCC) Expected: 09/23/2024 (Approximate), Expires: 03/25/2026 PTH Intact Total Lab Routine CKD (chronic kidney disease) stage 4, GFR 15-29 ml/min (CMS/HCC) Expected: 09/23/2024 (Approximate), Expires: 03/25/2026 Renal Function Panel, Plasma Lab Routine CKD (chronic kidney disease) stage 4, GFR 15-29 ml/min (CMS/HCC) Expected: 09/23/2024 (Approximate), Expires: 03/25/2026 Urinalysis with reflex microscopic (Culture NOT Included) Lab Routine CKD (chronic kidney disease) stage 4, GFR 15-29 ml/min (CMS/HCC) Expected: 09/23/2024 (Approximate), Expires: 03/25/2026 Vitamin D 25 Hydroxy Lab Routine CKD (chronic kidney disease) stage 4, GFR 15-29 ml/min (CMS/HCC) Expected: 09/23/2024 (Approximate), Expires: 03/25/2026 documented as of this encounter Visit Diagnoses Diagnosis CKD (chronic kidney disease) stage 4, GFR 15-29 ml/min (CMS/HCC)- Primary Chronic kidney disease, Stage IV (severe) Essential hypertension Unspecified essential hypertension Diabetes mellitus due to underlying condition with diabetic chronic kidney disease, unspecified CKD stage, 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 whether 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 service representative insulin use (CMS/HCC) Chronic kidney disease-mineral and bone disorder Anemia due to stage 4 chronic kidney disease At risk for fluid and electrolyte imbalance Metabolic acidosis Acidosis documented in this encounter Additional Health Concerns Assessment Noted Time A Body Mass Index follow-up plan has been documented for the patient 09/23/2024 10:18 AM EDT documented as of this encounter Care Teams Echo Technologist Relationship Specialty Start Date End Date Shankar Raya MD [address] [place] [id number] PCP - General 10/12/20 documented as of this encounter
--- OUTSIDE RECORDS SUMMARY | 2024-10-18 06:31 | XMS_ITS | Continuity of Care Document ---
Author Organization [address] [place] [address] Address [address] [facility] [address] [place] [address] Phone Care Team Providers Care Teaching Aide Name Role Phone Nirmala Argueta OD Unavailable Unavailable Allergies, Adverse Reactions, Alerts Substance Reaction Status Criticality No Known Allergies Active No Inform ation Medications Medication Instructions Dosage Effective Dates (start - stop) Status Comments Admelog SoloStar U-100 Insulin lispro 100 unit/mL subcutaneous pen - Active AutoShield Duo Pen Needle 30 gauge x 08/14 - Active buspirone 5 mg tablet - Acti ve losartan 50 mg-hydrochlorothiazide 12.5 mg tablet - Active Zenpep 10,000 unit-32,000 unit-42,000 unit capsule,delayed release - Active Trelegy Ellipta 200 mcg-62.5 mcg-25 mcg powder for inhalation - Active azithromycin 250 mg tablet - Active azithromycin 500 mg tablet - Active ipratropium 0.5 mg-albuterol 3 mg (2.5 mg base)/3 mL nebulization soln - Active prednisone 20 mg tablet - Ac tive Farxiga 10 mg tablet - Activ e simvastatin 40 mg tablet - A ctive allopurinol 100 mg tablet - Active hydralazine 25 mg tablet - A ctive gabapentin 300 mg capsule - Active carvedilol 25 mg tablet - Ac tive Calcium Antacid 200 mg (as calcium carbonate 500 mg) chewable tablet - Active duloxetine 60 mg capsule,delayed release - Active AUTOSHIELD MIS [id number] - Act nico acetaminophen 500 mg tablet - Active diltiazem ER 120 mg tablet,extended release 24 hr - Active magnesium oxide 400 mg (241.3 mg magnesium) tablet - Active duloxetine 20 mg capsule,delayed release - Active Guaiasorb DM 10 mg-100 mg/5 mL oral liquid - Active Basaglar KwikPen U-100 Insulin 100 unit/mL (3 mL) subcutaneous - Active Ventolin HFA 90 mcg/actuation aerosol inhaler - Active nifedipine ER 30 mg tablet,extended release 24 hr - Active tramadol 50 mg tablet - Acti ve albuterol sulfate HFA 90 mcg/actuation aerosol inhaler - Active levocetirizine 5 mg tablet - Active Trisha-Tussin DM 10 mg-100 mg/5 mL oral liquid - Active capsaicin 0.025 % topical cream - Active quetiapine 25 mg tablet - Ac tive quetiapine 50 mg tablet - Ac tive nicotine (polacrilex) 4 mg gum - Active cholecalciferol (vitamin D3) 1,250 mcg (50,000 unit) capsule - Active BD SafetyGlide Insulin Syringe 1 mL 31 gauge x 15/64 - Active lidocaine 4 % topical patch - Active carvedilol 12.5 mg tablet - Active quetiapine 100 mg tablet - A ctive duloxetine 40 mg capsule,delayed release - Active ibuprofen 800 mg tablet - Ac tive ibuprofen 200 mg tablet - Ac tive Tradjenta 5 mg tablet - Acti ve Farxiga 5 mg tablet - Active levofloxacin 750 mg tablet - Active metformin 500 mg tablet - Ac tive quetiapine 150 mg tablet - A ctive Novolin R Regular U-100 Insulin 100 unit/mL injection solution - Active Double Antibiotic (bacitrcn zn) 500 unit-10,000 unit/gram top ointment - Active Humulin R Regular U-100 Insulin 100 unit/mL injection solution - Active MAXTussin DM 10 mg-100 mg/5 mL oral liquid - Active Tussin DM 10 mg-100 mg/5 mL oral syrup - Active Procedures Procedure Date Trim Dystrophic nail(s) Low extemity neur exam docum Advance Directives Directive Yes / No Effective Date File Name No Information Encounters Encounter Description Practice Location Reason(s) For Visit Diagnoses Date Provider Providers Copied on Encounter [address] [place] [address], [address] [place] [address], [id number], tel:[phone] [facility] No Information 5 [place], [place]. [address] [place] [address], [address] [place] [address], [id number], tel:[phone] [facility] No Information 5 [place], [place]. [address] [place] [address], [id number] [place] [address], [id number], tel:[phone] [facility] Type 2 diabetes mellitus with diabetic peripheral angiopathy without gangreneOther specified peripheral vascular diseasesNail dystrophyOnychogr yphosis 5 [place], [place]. Family History Family Member Type Diagnosis Age At Onset No Information Payers Payer name Insurance type Covered republican ID Authoriza katianatrung(s) Medicare [facility] [id number] Medicaid Psychiatric [id number] Social History Type Description Quantity Date Captured Comments Sex Male Smoking Status No Information Chief Complaint And Reason For Visit No Information Reason For Referral Reason For Referral No Information History Of Present Illness Encounter Date Complaint History Of Prese nt Illness No Information Functional Status Date Functional Assessmen t No Information Instructions Date Instruction Additional Infor mation A diabetic exam perf ormed. discussed importance of good foot care and shoes. Educational material was left with the facility. Related to Type 2 diabetes mellitus with diabetic peripheral angiopathy without gangrene Discussed using comp ression stockings to assist in localize swelling and venous return, and the keno terminal operator benefits of using compression stockings. Reinforced the importance of proper adherence to using the camron hose, and compression stockings. Will continue to monitor. Related to Other specified peripheral vascular diseases All documented dystr ophic nails were reduced in length as needed to prevent pain and other symptoms. Related to Nail dystrophy All of the documente d thickened nails (which includes those nails 2 mm or more in thickness, and possible mycotic component to the nails) were debrided in both length and thickness using both a nail nipper and an electric rotary milk powder grinder in an atraumatic fashion; this was performed in an attempt to prevent pain and reduce risk of infection. Alcohol applied to the digits afterwards. Related to Onychogryphosis Assessments Type Assessment Date No Information Patient Care Teams Name Effective Dates (start - stop) Status Members No Information
--- OUTSIDE RECORDS SUMMARY | 2024-11-04 12:30 | XMS_ITS | Clinical Summary ---
Author Organization [facility] Address [address] [place] [address] Care Team Providers Care Field Care Coordinator Name Role Phone Shankar Raya MD Primary Care Provider [phone] Allergies No known active allergies Medications DULoxetine (Cymbalta) [address] capsule Take 1 capsule by mouth daily. Do not crush or chew. Active levocetirizine (Xyzal) 5 MG tablet Take 1 tablet by mouth every evening. Active NIFEdipine CC (Adalat CC) 30 MG 24 hr tablet Take 1 tablet by mouth daily before breakfast. Do not crush, chew, or split. Active omeprazole OTC (PriLOSEC OTC) 20 MG EC tablet Take 1 tablet by mouth daily. Do not crush, chew, or split. Active QUEtiapine (SEROquel) 100 MG tablet Take 1 tablet by mouth nightly. Active simvastatin (Zocor) 40 MG tablet Take 1 tablet by mouth nightly. Active multivitamin (Theragran) tablet Take 1 tablet by mouth daily. Active thiamine (Vitamin B-1) 100 MG tablet Take 1 tablet by mouth daily. Active linaGLIPtin (Tradjenta) 5 MG tablet Take 1 tablet by mouth daily. Active Fluticasone-Ume clidin-Vilant (Trelegy Ellipta) 200-62.5-25 MCG/ACT aerosol powder Inhale. Active Glycerin-Hyprom ellose-PEG 400 (VISINE DRY EYE OP) Administer into affected eye(s). Active allopurinol (Zyloprim) 100 MG tablet Take 1 tablet by mouth 2 times a day. Active carvedilol (Coreg) 12.5 MG tablet Take 1 tablet by mouth 2 times a day with meals. Active gabapentin (Neurontin) 300 MG capsule Take 1 capsule by mouth 2 times a day. Active ibuprofen (IBU) 800 MG tablet Take 1 tablet by mouth every 6 hours as needed for mild pain. Active guaiFENesin-cod eine (Robitussin-AC) 100-10 MG/5ML syrup Take by mouth. Activ e pancrelipase, Mjh-Mbnb-Ztkb, (Zenpep) 57697-03494 units capsule delayed-release particles capsule Take 1 capsule by mouth 3 times a day with meals. Active magnesium oxide (Mag-Ox) 400 mg tablet 1 tablet daily. Acti ve metFORMIN (Glucophage) 500 MG tablet Take 1 tablet by mouth 2 times a day with meals. Active albuterol 108 (90 Base) MCG/ACT inhaler Inhale 2 puffs 4 times a day. Active hydrALAZINE (Apresoline) 25 MG tablet Take 1 tablet by mouth every 8 hours. Active acetaminophen (Tylenol) 500 MG tablet Take 1 tablet by mouth every 4 hours as needed. Active Insulin Glargine (BASAGLAR KWIKPEN SC) Inject 10 Units under the skin nightly. Active Insulin Regular Human (NOVOLIN R IJ) Inject as directed. Active ipratropium-alb uterol (Duo-Neb) 0.5-2.5 mg/3 mL nebulizer solution Take 3 mL by nebulization every 6 hours as needed for wheezing. Active diclofenac (Voltaren) 1 % topical gel Apply as directed to area Active dilTIAZem CD (Cardizem CD) 120 MG 24 hr capsule Take 1 capsule by mouth daily. Active dapagliflozin (Farxiga) 10 MG tablet Take 1 tablet by mouth daily. Active losartan-hydroC HLOROthiazide (Hyzaar) 50-12.5 MG tablet Take 1 tablet by mouth daily. Active magnesium oxide (Mag-Ox) 400 (240 Mg) MG tablet Take 1 tablet by mouth daily. 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 ([facility]); Chronic kidney disease-mineral and bone disorder; Anemia due to stage 4 chronic kidney disease; At risk for fluid and electrolyte imbalance; Metabolic acidosis 09/23/2024 Travel from Last 3 Months Immunizations Immunization Administration Dates Next Due Influenza, High-dose, Split Virus, Trivalent, Injectable, preservative free 06/25/2022 Influenza, injectable, quadrivalent 02/25/2017 Influenza, injectable, quadrivalent, preservativ e free 06/30/2020 Pneumococcal Polysaccharide PPV23 11/14/2016 Td (adult) 05/15/2018 Family History Medical History Relation Name Comments Cardiac disorder Other 1 Diabetes Other 2 Hypertension Other 3 Relation Name Status Comments Other 1 Other 2 Other 3 Social History Tobacco Use Types Packs/Day Years [...] on file Sexual Orientation Not on file Last Filed Vital Signs Vital Sign Reading [...] Mass Index 25.54 09/23/2024 9:31 AM EDT Plan of Treatment Upcoming Encounters Date Type Department Care Team (Late st Contact Info) Description 02/10/2025 10:40 AM EDT Office Visit [facility] [address] [place] [address] Ira Neely, HEAD LINEMAN [address] [address] Health Maintenance Due Date Last Done Comments [facility]-Depression Screening 1955 [facility]-Infant/Child/Adol SDOH Screenings 1955 [facility]- SDOH Screenings 1973 [facility]-Adult SDOH Screenings 1973 CT Colonography 2000 Colonoscopy 2000 FIT-DNA 2000 FIT 2000 FOBT 2000 Sigmoidoscopy 2000 [facility]-Colorectal Cancer Screening 2000 [facility]-Zoster Vaccines (1 of 2) 2005 [facility]-Pneumococcal Vaccine: 50 + Years (2 of 2 - PCV) 11/14/2017 11/14/2016 [facility]-DTaP,Tdap,and Td Vaccine s (1 - Tdap) 05/16/2018 05/15/2018 [id number]-65 Vaccine (2 - season) 2024 10/05/2020 [facility]-Influenza Vaccine (Seaso n Ended) 2025 06/25/2022, 06/30/2020, 02/25/2017 [facility]-RSV Vaccine: 60+ Years o r (1 - 1-dose 75+ series) 2030 HPV Vaccines Aged Out No longer eligi ble based on patient's age to complete this topic [facility]-HIB Vaccines Aged Out No longer e ligible based on patient's age to complete this topic [facility]-Hepatitis A Vaccines Aged Out No longer eligible based on patient's age to complete this topic [facility]-IPV Vaccines Aged Out No longer e ligible based on patient's age to complete this topic [facility]-Rotavirus Vaccines Aged Out No lo nger eligible based on patient's age to complete this [place] [address] MEDICARE Care Teams Field Care Coordinator Relationship Specialty Start Date End Date Shankar Raya MD [address] [place] [phone] PCP - General 10/12/20
--- OUTSIDE RECORDS SUMMARY | 2024-11-04 12:30 | XMS_ITS | Encounter Summary ---
Author Organization Address [address] [place] [address] Care Team Providers Care Improvement Intern Name Role Phone Shankar Raya MD Primary Care Provider [phone] Encounter Details Date Type Department Care Team (Latest Contact Info) Description 09/23/2024 Travel Social History Tobacco Use Types Packs/Day Years Used Date Smoking Tobacco: Every Day Cigarettes Started: 09/23/1974 Smokeless Tobacco: Never Alcohol Use Standard Drinks/Week Comments Not Currently 0 (1 standard drink = 0.6 oz pur e alcohol) Sex and Gender Information Value Date Recorded Sex Assigned at Not on file Legal Sex Male 6:55 PM EDT Gender Identity Not on file Sexual Orientation Not on file documented as of this encounter Plan of Treatment Upcoming Encounters Date Type Department Care Team ([facility] st Contact Info) Description 02/10/2025 10:40 AM EDT Office Visit [facility] [address] [place] [address] Ira Neely, SWITCH CREW SUPERVISOR [address] [facility] [address] [place] [address] documented as of this encounter Visit Diagnoses Not on filedocumented in this encounter Additional Health Concerns Assessment Noted Time A Body Mass Index follow-up plan has been documented for the patient 09/23/2024 10:18 AM EDT documented as of this encounter Care Teams Improvement Intern Relationship Specialty Start Date End Date Shankar Raya MD [address] [place] [address] PCP - General 10/12/20 documented as of this encounter
--- NOTE | 2024-11-04 13:00 | CA_ITS ---
APPROVED REPORT EXAM: Comprehensive 2D, Doppler, and color-flow Echocardiogram Smutter: Lorraine Kwan RDCS Ht: 5 ft 8 in Wt: 165lbs BSA: 1.88 BP: 114/60 mmHg Indications: SOA,COPD,SMOKER,HTN,HLP,DM TDS IN PSAX VIEWS M-Mode Dimensions RVDd 1.67 cm (0.9-2.6) LA Diam 1.87 cm (1.9-4.0) LVDd 5.36 cm (3.5-5.7) LVDs 4.26 cm (3.5-5.7) IVSd 0.57 cm (0.6-1.1) PWd 0.65 cm (0.6-1.1) EF (Teich) 41.50% FS 20.50% EDV (Teich) 138.90 mL ESV (Teich) 81.30 mL LV Diastology E Decel Time 230 (160-240 msec) E/A Ratio 0.9 Mitral Valve MV E Max Liborio. 73.0 (40-130 cm/s) MV A Velocity 81.0 (40-130 cm/s) E/A Ratio 0.91 MV Mean Gr. 1.00 (<2mmHg) MV PHT 67.0 ms Left Ventricle The left ventricle is normal size. The left ventricular systolic function is normal. The left ventricular ejection fraction is within the normal range. There is normal left ventricular wall thickness. There is normal LV segmental wall motion. The left ventricular diastolic function is normal. LVEF is 55%. Right Ventricle The right ventricle is normal size. The right ventricular systolic function is normal. Atria The left atrium size is normal. The right atrium size is normal. There is no Doppler evidence of interatrial shunt. Aortic Valve Aortic valve opens well. There is no aortic valvular stenosis. No aortic regurgitation is present. Mitral Valve The mitral valve is normal in structure. No evidence of mitral valve stenosis. Trace mitral regurgitation. Tricuspid Valve Tricuspid valve is grossly normal in structure and function. Trace tricuspid regurgitation. There is insufficient TR jet to estimate RVSP. Pulmonic Valve The pulmonary valve is normal in structure. Trace pulmonic regurgitation. Great Vessels The aortic root is normal in size. IVC is normal in size and collapses >50% with inspiration. Pericardium There is no pericardial effusion. Other Information Study Quality: Fair Conclusion Normal biventricular systolic function. No significant valvular stenosis or regurgitation. Electronically signed by : Anila Beckman MD 11/14/2024 18:35:37
--- NOTE | 2024-11-04 14:30 | US_ITS ---
FINAL REPORT CLINICAL HISTORY: Decreased Pedal Pulses DM FINDINGS: Ankle-brachial indices were obtained. The right MARIO is 1.3. The left MARIO is 1.0. IMPRESSION: ABIs within normal limits bilaterally. Reviewed, Interpreted and Dictated by Cinthya Wong MD Transcribed by Loan Askew Authenticated and . [facility]
== END 2024-11-04 23:59 | disposition home or self-care (01) ==
LOC: RT 12:29
PROVIDERS: PCP Family Medicine; Visit Provider Nurse Practitioner
DX: I34.0 Nonrheumatic mitral (valve) insufficiency (principal); J44.9 Chronic obstructive pulmonary disease, unspecified; F17.200 Nicotine dependence, unspecified, uncomplicated; I10 Essential (primary) hypertension; E78.5 Hyperlipidemia, unspecified; E11.9 Type 2 diabetes mellitus without complications; R09.89 Other specified symptoms and signs involving the circulatory and respiratory systems
CPT/HCPCS: 93306; 93923

== ENCOUNTER 2024-12-26 10:54 | Outpatient (CLI) | payer MEDICARE, MEDICAID, SELFPAY ==
--- OUTSIDE RECORDS SUMMARY | 2024-12-26 11:24 | XMS_ITS | Clinical Summary ---
Author Organization [facility] Address [address] [place] [address] Care Team Providers Care Fashion Intern Name Role Phone Shankar Raya MD Primary Care Provider [phone] Allergies No known active allergies Medications DULoxetine [...] syrup Take by mouth. Activ e pancrelipase, Ojm-Fhcl-Srov, (Zenpep) 80410-[address] units capsule delayed-release particles capsule Take 1 [...] Take 1 tablet by mouth daily. Active Immunizations Immunization Administration Dates Next Due Influenza, [...] Description 02/10/2025 10:40 AM EDT Office Visit [facility] [address] [place] [address] Ira Neely, GLAUCOMA SPECIALIST [address] [address] Health Maintenance Due Date Last Done Comments [facility]-Depression Screening 1955 [facility]-Diabetes: Hemoglobin A1C 1955 [facility]-Hepatitis C Screening 1955 [facility]-Medicare Annual Wellness (AWV) 1955 [facility]-/Child/Adol SDOH Screenings 1955 Diabetes: Dental Exam 1965 [facility]- SDOH Screenings 1973 [facility]-Adult SDOH Screenings 1973 CT Colonography 2000 Colonoscopy 2000 FIT-DNA 2000 FIT 2000 FOBT 2000 Sigmoidoscopy 2000 [facility]-Colorectal Cancer Screening 2000 [facility]-Zoster Vaccines (1 of 2) 2005 [facility]-RSV Vaccine: 60+ Years o r (1 - Risk 60-74 years 1-dose series) 2015 [facility]-Pneumococcal Vaccine: 50 + Years (2 of 2 - PCV) 11/14/2017 11/14/2016 [facility]-DTaP,Tdap,and Td Vaccine s (1 - Tdap) 05/16/2018 05/15/2018 [facility]-Abdominal Aortic Aneurys m (AAA) Screening 2020 [id number] Vaccine (2 - season) 2024 10/05/2020 [facility]-Influenza Vaccine (#1) 01/30/202506/25, 06/30/2020, 02/25/2017 [facility]-Obesity Intervention Completed 09/23/2024 HPV Vaccines Aged Out No longer eligi [...] to complete this [place] [address] MEDICARE Care Teams Fashion Intern Relationship Specialty Start Date End Date Shankar Raya MD [address] [place] [id number] PCP - General 10/12/20
[2024-12-26 12:06] LABS: Blood Urea Nitrogen 42 mg/dl (9-20); Creatinine,Serum 2.20 mg/dl (0.66-1.25); Estimated Glomerular Filt Rate 30 ml/min (>60); GFR (African American) 36 ML/MIN (>60)
[2024-12-26 14:51] LABS: Microscopic, Urine URINE MICROSCOPIC (MICROSCOPIC)
[2024-12-26 17:06] LABS: Bilirubin,Urine Negative (Negative); Color,Urine YELLOW (Yellow); Glucose,Urine (UA) Negative (Negative); Ketones,Urine Negative (Negative); Leukocyte Esterase,Urine Negative (Negative); PH,Urine 6.0 (5.0-8.5); Protein,Urine Negative (Negative); Specific Gravity, Urine 1.010 (1.005-1.030); Urobilinogen,Urine 0.2 EU/dl (0.2)
[2024-12-26 18:16] LABS: Bacteria,Urine Trace /lpf
[2024-12-27 07:10] LABS: PSA, Free 0.14 ng/mL
== END 2024-12-26 23:59 | disposition home or self-care (01) ==
LOC: LAB 10:55
PROVIDERS: PCP Family Medicine; Visit Provider Urology
DX: N39.3 Stress incontinence (female) (male) (principal); N19 Unspecified kidney failure; C61 Malignant neoplasm of prostate
CPT/HCPCS: 36415; 81001; 82565; 84153; 84154; 84520

== ENCOUNTER 2025-02-03 13:25 | Outpatient (CLI) | payer MEDICARE, MEDICAID, SELFPAY ==
--- OUTSIDE RECORDS SUMMARY | 2025-01-03 07:20 | XMS_ITS | Continuity of Care Document ---
Author Organization [address] [place] [address] Address [address] [facility] [address] [place] [address] Phone Care Team Providers Care Faculty Research Physician Name Role Phone Geovanna Elizabeth NP Unavailable Echo vailable Allergies, Adverse Reactions, Alerts Substance Reaction Status [...] mg capsule,delayed release - Active AUTOSHIELD MIS [id number] - Act nico acetaminophen 500 mg tablet [...] mg-100 mg/5 mL oral syrup - Active Problems Condition Type Effective Dates (start - stop) Clini fallon Status Comments No Known Problems Procedures Procedure Date [facility] NF CARE [facility] 10 Trim normal nail, any number Debride mycotic nails 5 or less 025 COMPRE OPH EXAM NEW PT 1/> Trim Dystrophic nail(s) Low extemity neur exam docum Advance Directives Directive Yes / No Effective Date File Name No Information Encounters Encounter Description Practice Location Reason(s) For Visit Diagnoses Date Provider Providers Copied on Encounter [facility] [address] [place] [address], [address] [facility] [address], [place], [id number], [place] tel:[phone] [facility] ear care exam (chief complaint) Unspecified hearing loss, bilateral Shelley-Hard caridad Geovanna. [address] [facility], [address], [place], [address], [place]. Referring Provider: Azar Louis. [address] [place] [address], [address] [facility] [address], [place], [place], [id number], [place] tel:[phone] [facility] Nail dystrophyOnych ogryphosisType 2 diabetes mellitus with diabetic peripheral angiopathy without gangreneLong term (current) use of insulin 5 [place], [place]. [address] [place] [address], [address] [place] [address], [place], [place], [id number], tel:[phone] [facility] Foreign body sensation (chief complaint) Type 2 diabetes mellitus without complicationsC hanges in retinal vascular appearance, bilateralPrese nce of intraocular lensDry eye syndrome of bilateral lacrimal glands 5 [place]. Referring Provider: Azar Louis. [address] [place] [address], [address] [place] [address], [id number], tel:[phone] [facility] No Information 5 [place]. [address] [place] [address], [address] [place] [address], [id number], tel:[phone] [facility] Type 2 diabetes mellitus with diabetic peripheral angiopathy without gangreneOther specified peripheral vascular diseasesNail dystrophyOnych ogryphosis 5 [place], [place]. Family History Family Member Type Diagnosis Age At Onset No Information Payers Payer name Insurance type Covered democrat ID Authoriza tion(s) Medicare [facility] [id number] Medicaid [facility] [id number] Social History Type Description Quantity Date Captured Comments Alcohol Use Details Unknown Caffeine Use Details Unknown Tobacco Use Status No Information Smoking Status No Information Sex Male Chief Complaint And Reason For Visit From encounter dated '01/03/2025 11:20'. ear care exam (chief complaint) Reason For Referral Reason For Referral No Information Plan Of Treatment Date Type Action Status Appointment [facility] River[facility] [place] Only. BOOKED Appointment Noah Rivero BOOKED Appointment Noah Rivero BOOKED Patient Education Learning About Your Ear s completed History Of Present Illness Encounter Date Complaint History Of Prese nt Illness Foreign body sensation The 69 ye ar old patient presents for evaluation of Foreign body sensation in the left eye. Using Visine several times a day. Pt is diabetic x 5 years. Denies pain. SY 1 year. Has IOLs Functional Status Date Functional Assessmen t No Information Instructions Date Instruction Additional Infor dillon may refer to audiolo gy if pt, family, and/or facility wish to pursue. Follow up in 6-9 months or sooner if needed. Related to Unspecified hearing loss, bilateral This is a chronic st able problem, Will reassess and follow up in 2-3 months Related to Type 2 diabetes mellitus with diabetic peripheral angiopathy without gangrene This is a chronic st able problem, Will reassess and follow up in 2-3 months Related to MCC (current) use of insulin All documented dystr ophic nails were reduced in length as needed to prevent pain and other symptoms. Patient tolerated procedure well. Related to Nail dystrophy All of the documente d thickened nails (which includes those nails 2 mm or more in thickness, and possible mycotic component to the nails) were debrided in both length and thickness using both a nail nipper and an electric rotary pulp grinder in an atraumatic fashion as needed ; this was performed in an attempt to prevent pain and reduce risk of infection. Alcohol applied to the digits afterwards. PT tolerated procedure well. Related to Onychogryphosis Follow up - Return i n 12-15 months for dilated fundus exam. Impression/Plan - Harry s beren using Visine QID or more for irritation. Does have pinguecula but stop Visine. Ordered Systane . No FB found or eyelash issue Related to Dry eye syndrome of bilateral lacrimal glands Impression/Plan - DM x r5 years. No active diabetic retinopathy present in either eye. We will monitor at regular intervals. On insulin and Farxiga Related to Type 2 diabetes mellitus without complications Impression/Plan - mi ld tortuosity. Is treated for HTN. Recheck yearly Related to Changes in retinal vascular appearance, bilateral Impression/Plan - Im plants are clear and stable in both eyes. We will monitor at regular intervals Related to Presence of intraocular lens A diabetic exam perf ormed. discussed importance of good foot care and shoes. Educational material was left with the facility. Related to Type 2 diabetes mellitus with diabetic peripheral angiopathy without gangrene Discussed using comp ression stockings to assist in localize swelling and venous return, and the long-term benefits of using compression stockings. Reinforced the [...] a nail nipper and an electric rotary pulp grinder in an atraumatic fashion; this was performed in an attempt to prevent pain and reduce risk of infection. Alcohol applied to the digits afterwards. Related to Onychogryphosis Assessments Type Assessment Date assessment Unspecified hearing loss, bilate ral Patient Care Teams Name Effective Dates (start - stop) Status Members No Information
--- NOTE | 2025-02-03 14:00 | US_ITS ---
FINAL REPORT CLINICAL HISTORY: Renal failure COMPARISON: None FINDINGS: ULTRASOUND BLADDER WITH POST VOID RESIDUAL Bladder volumes were estimated based on 3 dimensional measurements, pre- and postvoid. Prevoid bladder volume: 183 mls There is no filling defect. The patient was unable to void so there is a rather significant postvoid residual. IMPRESSION: Patient unable to void with persistent urinary bladder volume. Reviewed, Interpreted and Dictated by Cinthya Wong MD Transcribed by Judit Singh Authenticated and [facility]
--- NOTE | 2025-02-03 14:30 | US_ITS ---
FINAL REPORT TECHNIQUE: Sonographic images of the kidneys and retroperitoneum were obtained in the longitudinal and transverse planes. CLINICAL HISTORY: .renal failure COMPARISON: None FINDINGS: The right kidney measures 9.1 cm in lhum-qu-ipbb length. No hydronephrosis, mass, or stone. Cortical echogenicity and thickness are normal. The left kidney measures 8.3 cm in bwic-fw-unab length. No hydronephrosis, mass, or stone. Cortical echogenicity and thickness are normal. Limited evaluation of the spleen and liver demonstrate no acute abnormality. IMPRESSION: Morphologically normal kidneys bilaterally. Reviewed, Interpreted and Dictated by Cinthya Wong MD Transcribed by Judit Singh Authenticated and [facility]
== END 2025-02-03 23:59 | disposition home or self-care (01) ==
LOC: RAD 13:25
PROVIDERS: PCP Family Medicine; Visit Provider Urology
DX: C61 Malignant neoplasm of prostate (principal); N19 Unspecified kidney failure; R39.198 Other difficulties with micturition
CPT/HCPCS: 76770; 76857

== ENCOUNTER 2025-02-09 10:44 | Outpatient (CLI) | payer MEDICARE, MEDICAID, SELFPAY ==
--- OUTSIDE RECORDS SUMMARY | 2025-01-03 07:20 | XMS_ITS | Continuity of Care Document ---
Author Organization [address] [place] [address] Address [address] [facility] [address] [place] [address] Phone Care Team Providers Care Packing Shed Supervisor Name Role Phone Geovanna Elizabeth NP Unavailable [...] mg capsule,delayed release - Active AUTOSHIELD MIS [id number] - Act nico acetaminophen 500 mg tablet [...] Comments No Known Problems Procedures Procedure Date [facility] NF CARE [facility] 10 Trim normal nail, any number Debride mycotic nails 5 or less 025 COMPRE OPH EXAM NEW PT 1/> Trim Dystrophic nail(s) Low extemity neur exam docum Advance Directives Directive Yes / No Effective Date File Name No Information Encounters Encounter Description Practice Location Reason(s) For Visit Diagnoses Date Provider Providers Copied on Encounter [facility]ARE [facility] [address] [place] [address], [address] [facility] [address], [place], [id number], [place] tel:[phone] [facility] ear care exam (chief complaint) Unspecified hearing loss, bilateral Shelley-Hard caridad Geovanna. [address] [facility], [address], [place], [address], [place]. Referring Provider: Azar Louis. [address] [place] [address], [address] [facility] [address], [place], [place], [id number], [place] tel:[phone] [facility] Nail dystrophyOnych ogryphosisType 2 diabetes mellitus with diabetic peripheral angiopathy without gangreneLong term (current) use of insulin 5 [place], [place]. [address] [place] [address], [address] [place] [address], [place], [place], [id number], tel:[phone] [facility] Foreign body sensation (chief complaint) Type 2 diabetes mellitus without complicationsC hanges in retinal vascular appearance, bilateralPrese nce of intraocular lensDry eye syndrome of bilateral lacrimal glands 5 [place]. Referring Provider: Azar Louis. [address] [place] [address], [address] [place] [address], [id number], tel:[phone] [facility] No Information 5 [place]. [address] [place] [address], [address] [place] [address], [id number], tel:[phone] [facility] Type 2 diabetes mellitus with diabetic peripheral angiopathy without gangreneOther specified peripheral vascular diseasesNail dystrophyOnych ogryphosis 5 [place], [place]. Family History Family Member Type Diagnosis Age At Onset No Information Payers Payer name Insurance type Covered democrat ID Authoriza tion(s) Medicare [facility] [id number] Medicaid [facility] [id number] Social History Type Description Quantity Date Captured Comments Alcohol Use Details Unknown Caffeine Use Details Unknown Tobacco Use Status No Information Smoking Status No Information Sex Male Chief Complaint And Reason For Visit From encounter dated '01/03/2025 11:20'. ear care exam (chief complaint) Reason For Referral Reason For Referral No Information Plan Of Treatment Date Type Action Status Appointment Noah Rivero BOOKED Appointment Noah Rivero [...] No Information Instructions Date Instruction Additional Infor pelonbraeden may refer to audiolo gy if pt, [...] follow up in 2-3 months Related to correction (current) use of insulin All documented dystr [...] a nail nipper and an electric rotary coffee grinder in an atraumatic fashion as needed [...] 2 diabetes mellitus without complications Impression/Plan - Im plants are clear and stable in both eyes. We will monitor at regular intervals Related to Presence of intraocular lens Impression/Plan - mi ld tortuosity. Is treated for HTN. Recheck yearly Related to Changes in retinal vascular appearance, bilateral A diabetic exam perf ormed. discussed importance of good foot care and shoes. Educational material was left with the facility. Related to Type 2 diabetes mellitus with diabetic peripheral angiopathy without gangrene Discussed using comp ression stockings to assist in localize swelling and venous return, and the portfolio lead benefits of using compression stockings. Reinforced the [...] a nail nipper and an electric rotary coffee grinder in an atraumatic fashion; this was performed in an attempt to prevent pain and reduce risk of infection. Alcohol applied to the digits afterwards. Related to Onychogryphosis Assessments Type Assessment Date assessment Unspecified hearing loss, bilate ral Patient Care Teams Name Effective Dates (start - stop) Status Members No Information
--- OUTSIDE RECORDS SUMMARY | 2025-02-09 10:58 | XMS_ITS | Clinical Summary ---
Author Organization [facility] Address [address] [place] [address] Care Team Providers Care Laboratory Analyst Name Role Phone Shankar Raya MD Primary Care Provider [phone] Allergies No known active allergies Medications DULoxetine [...] syrup Take by mouth. Activ e pancrelipase, Ywv-Yptx-Ozbx, (Zenpep) 897[address] units capsule delayed-release particles capsule Take 1 [...] Influenza, injectable, quadrivalent, preservativ e free 06/30/2020 Influenza, seasonal, injectable 06/25/2022 PPD Skin Test (TB Skin Test) 08/26/2022,08/20/19 23 Pneumococcal Polysaccharide PPV23 11/14/2016 Td (adult) 05/15/2018 [...] Description 02/10/2025 10:40 AM EDT Office Visit [facility] [address] [place] [address] Ira Neely, CONSULTING SERVICES MANAGER [address] [address] Health Maintenance Due Date Last Done Comments [facility]-Depression Screening 1955 [facility]-Diabetes: Hemoglobin A1C 1955 [facility]-Hepatitis C Screening 1955 [facility]-Medicare Annual Wellness (AWV) 1955 [facility]-Infant/Child/Adol SDOH Screenings 1955 Diabetes: Dental Exam 1965 [facility]- SDOH Screenings 1973 [facility]-Adult SDOH Screenings 1973 CT Colonography 2000 Colonoscopy 2000 FIT-DNA 2000 FIT 2000 FOBT 2000 Sigmoidoscopy 2000 [facility]-Colorectal Cancer Screening 2000 [facility]-Zoster Vaccines (1 of 2) 2005 [facility]-RSV Vaccine: 60+ Years or (1 - Risk 60-74 years 1-dose series) 2015 [facility]-Pneumococcal Vaccine: 50+ Years (2 of 2 - PCV) 11/14/2017 11/14/2016 [facility]-DTaP,Tdap,and Td Vaccines (1 - Tdap) 05/16/2018 05/15/2018 [facility]-Abdominal Aortic Aneurysm (AAA) Screening 2020 [id number] Vaccine (2 - season) 2025 10/05/2020 [facility]-Influenza Vaccine (#1) 01/30/202506/25, 06/25/2022, 06/30/2020, Additional history exists [facility]-Obesity Intervention Completed 09/23/2024 HPV Vaccines Aged [...] to complete this topic [place] [address] [place]ARE [place] Care Teams Laboratory Analyst Relationship Specialty Start Date End Date Shankar Raya MD [address] [place] [address] PCP - General 10/12/20
--- NOTE | 2025-02-09 11:00 | US_ITS ---
FINAL REPORT CLINICAL HISTORY: renal failure COMPARISON: 02/03/2025 FINDINGS: Limited sonographic images of the urinary bladder were obtained. Prevoid volume is 207 cc. There is no significant wall thickening. Bilateral ureteral jets are identified. Postvoid volume is 0 cc. IMPRESSION: Patient empties to completion. No postvoid residual. Reviewed, Interpreted and Dictated by Cinthya Wong MD Transcribed by Loan Askew Authenticated and [facility]
== END 2025-02-09 23:59 | disposition home or self-care (01) ==
LOC: RAD 10:45
PROVIDERS: PCP Pediatrics; Visit Provider Urology
DX: N19 Unspecified kidney failure (principal)
CPT/HCPCS: 76857

== ENCOUNTER 2025-02-11 23:27 | Inpatient (IN) | payer MEDICARE, MEDICAID, SELFPAY ==
--- OUTSIDE RECORDS SUMMARY | 2025-02-10 10:40 | XMS_ITS | Encounter Summary ---
Author Organization [facility] Address [address] [place] [address] Care Team Providers Care Health Manager Name Role Phone Shankar Raya MD Primary Care Provider + [phone] Reason for Referral * Consultation (Routine) - Authorized Specialty Diagnoses / Procedures Referred By Contimtiaz t Referred To Contact Diagnoses CKD (chronic kidney disease) stage 4, GFR 15-29 ml/min (CMS/HCC) Ira Neely APRN [address] [address] Phone: tel: fax: Referral ID Status Reason Start Date Expiration Date V isits Requested Visits Authorized [id number] Authorized 02/10/2025 08/12/2026 1 1 Encounter Details Date Type Department Care Team (Late st Contact Info) Description 02/10/2025 10:40 AM EDT Office Visit [facility] [address] [place] [id number] Iar Neely APRN [address] [address] CKD (chronic kidney disease) stage 4, GFR 15-29 ml/min (CMS/HCC) (Primary Dx); Essential hypertension; Diabetes mellitus due to underlying condition with diabetic chronic kidney disease, unspecified CKD stage, unspecified whether group home insulin use (CMS/HCC); Chronic kidney disease-mineral and bone disorder; Anemia due to stage 4 chronic kidney disease Social History Tobacco Use Types Packs/Day Years [...] on file documented as of this encounter Miscellaneous Notes * Progress Notes - Ira Neely, OTOLARYNGOLOGY PHYSICIAN - 02/10/2025 10:40 AM EDT Nephrology Clinic Follow up Note Noah Rivero is a 69 y.o. male with PMH of DM, HTN, COPD, GERD, gastric cancer, gout, and chronic pancreatitis presents as a new consult at the request of Shankar Raya MD Patient notes a long history of known CKD. He has had DM for seveal years, it is not well controlled. He does have neuropathy. Retinopathy status unknown. NO family history of renal disease. He is currently a [place] resident. His BP medications were recently adjusted. Patients renal function Creatinine07/15/24 2.4 egfr 27. Most recent creatinine 2.2 egfr 30. Likely baseline 2-2.4. Patient denies any edema. Notes appettie has been very poor. States he was [place] appetite stimul[place]. Labs [place] with glucose 44, Insulin dose has decreased to only once a day. Unsure ofrecent A1c. Denies hematuria, dysuria, abd pain, SOA, CP. Past Medical History[1] Current Outpatient Medications Medication Instructions acetaminophen (TYLENOL) 500 mg, Every 4 hours PRN albuterol 108 (90 Base) MCG/ACT inhaler 2 puffs, 4 times daily allopurinol (ZYLOPRIM) 100 mg, 2 times daily carvedilol (COREG) 12.5 mg, 2 times daily with meals dapagliflozin (FARXIGA) 10 mg, Daily diclofenac (Voltaren) 1 % topical gel Apply as directed to area dilTIAZem CD (CARDIZEM CD) 120 mg, Daily DULoxetine (CYMBALTA) 60 mg, Daily Xddrtxnibxf-Wnqqctdlm-Pepdcv (Trelegy Ellipta) 200-62.5-25 MCG/ACT aerosol powder Inhale. gabapentin (NEURONTIN) 300 mg, 2 times daily Xjnitrrc-Npnpydrmifbx-FIU 400 (VISINE DRY EYE OP) Administer into affected eye(s). guaiFENesin-codeine (Robitussin-AC) 100-10 MG/5ML syrup Take by mouth. hydrALAZINE (APRESOLINE) 25 mg, Every 8 hours ibuprofen (IBU) 800 mg, Every 6 hours PRN Insulin Glargine (BASAGLAR KWIKPEN SC) 10 Units, Nightly Insulin Regular Human (NOVOLIN R IJ) Inject as directed. ipratropium-albuterol (Duo-Neb) 0.5-2.5 mg/3 mL nebulizer solution 3 mL, Every 6 hours PRN levocetirizine (XYZAL) 5 mg, Every evening losartan-hydroCHLOROthiazide (Hyzaar) 50-12.5 MG tablet 1 tablet, Daily magnesium oxide (MAG-OX) 400 mg, Daily magnesium oxide (MAG-OX) 400 mg, Daily metFORMIN (GLUCOPHAGE) 500 mg, 2 times daily with meals multivitamin (Theragran) tablet 1 tablet, Daily NIFEdipine CC (ADALAT CC) 30 mg, Daily before breakfast omeprazole OTC (PRILOSEC OTC) 20 mg, Daily pancrelipase, Uvk-Zlrl-Gawh, (Zenpep) 50155-[address] units capsule delayed-release particles capsule 1capsule, 3 times daily with meals QUEtiapine (SEROQUEL) 100 mg, Nightly simvastatin (ZOCOR) 40 mg, Nightly thiamine (VITAMIN B-1) 100 mg, Daily Tradjenta 5 mg, Daily Physical Exam Encounter done via audio only: Speaking in full sentences, no apparent distress, answers questions appropriately Labs: I have independently reviewed and interpreted the test results and discussed with patient. Labs scanned in to media tab of [facility] from an outside facility. Labs completed on 01/2025 Imaging: Assessment/Plan: CKD4 HTN DM Anemia of chronic disease [...] in 4 months or sooner if needed Telehealth Statement Patient Verification Patient identity has been confirmed using name and date of ? Yes Authorizations and Agreements/Telemedicine Consent sent and consent confirmed? Yes Patient Location: Home/Other Patient confirms they are physically located in [place]? Yes If the patient is not physically located in [place], the provider has confirmed with [facility] thatthe provider is authorized to provide services in patient's stated location? N/A Provider Location: [facility] facility Audio and video or audio only? Audio only Total visit time: 24 minutes [1] Past Medical History: Diagnosis Date Benign [...] system History of chronic obstructive lung disease documented in this encounter Plan of Treatment Upcoming Encounters Date Type Department Care Team (Late st Contact Info) Description 06/23/2025 10:40 AM EST Office Visit [facility] [address] [place] [address] Ira Neely APRN [address] [address] Scheduled Orders Name Type Priority Associated Diagnoses Orde r Schedule CBC W/O Differential Lab Routine CKD (chronic kidney disease) stage 4, GFR 15-29 ml/min ([facility]) Expected: 02/10/2025 (Approximate), Expires: 08/10/2026 Protein, Random, Urine with Creatinine Lab Routine CKD (chronic kidney disease) stage 4, GFR 15-29 ml/min ([facility]) Expected: 02/10/2025 (Approximate), Expires: 08/10/2026 Urinalysis with reflex microscopic (Culture NOT Included) Lab Routine CKD (chronic kidney disease) stage 4, GFR 15-29 ml/min ([facility]/HCC) Expected: 02/10/2025 (Approximate), Expires: 08/10/2026 PTH Intact Total Lab Routine CKD (chronic kidney disease) stage 4, GFR 15-29 ml/min ([facility]) Expected: 02/10/2025 (Approximate), Expires: 08/10/2026 Renal Function Panel, Plasma Lab Routine CKD (chronic kidney disease) stage 4, GFR 15-29 ml/min ([facility]) Expected: 02/10/2025 (Approximate), Expires: 08/10/2026 Scheduled Referrals Name Type Priority Associated Diagnoses Order Schedule Follow Up Nephrology Outpatient Referral Routine CKD (chronic kidney disease) stage 4, GFR 15-29 ml/min ([facility]) Expected: 06/12/2025 (Approximate), Expires: 03/12/2026 documented as of this encounter Visit Diagnoses Diagnosis CKD (chronic kidney disease) stage 4, GFR 15-29 ml/min ([facility])- Primary Chronic kidney disease, Stage IV (severe) Essential hypertension Unspecified essential hypertension Diabetes mellitus due to underlying condition with diabetic chronic kidney disease, unspecified CKD stage, unspecified whether group home insulin use ([facility]) Chronic kidney disease-mineral and bone disorder Anemia due to stage 4 chronic kidney disease documented in this encounter Additional Health Concerns Assessment Noted Time A Body Mass Index follow-up plan has been documented for the patient 02/10/2025 11:06 AM EDT documented as of this encounter Care Teams Health Manager Relationship Specialty Start Date End Date Shankar Raya MD [address] [place] [address] [place] [id number] PCP - General 10/12/20 documented as of this encounter
--- NOTE | 2025-02-11 23:36 | CT_ITS ---
PROCEDURE INFORMATION: Exam: CTA Chest With Contrast Exam date and time: 02/12/2025 12:06 AM Age: 69 years old Clinical indication: Other: Chest pressure elevated trop TECHNIQUE: Imaging protocol: Computed tomographic angiography of the chest with contrast. Exam focused on the arteries. 3D rendering (Not supervised by radiologist): MIP and/or 3D reconstructed images were created by the technologist. Radiation optimization: All CT scans at this facility use at least one of these dose optimization techniques: automated exposure control; mA and/or kV adjustment per patient size (includes targeted exams where dose is matched to clinical indication); or iterative reconstruction. Contrast material: ISO; Contrast volume: 80 ml; Contrast route: INTRAVENOUS (IV); COMPARISON: CT ANGIO CHEST PE PROTOCOL 07/22/2023 7:55 PM FINDINGS: Pulmonary arteries: No central or segmental pulmonary arterial intraluminal filling defects identified. Aorta: Atherosclerotic calcification of aorta without aneurysm or obvious dissection. Lungs: Poorly defined, left upper lobar mass extending into anterior mediastinum, abutting ascending and transverse aortic segments with least partial encasement of left upper lobar segmental and subsegmental pulmonary arterial and venous vessels, measuring at least 5.2 x 10.5 x 9.4 cm. Extensive locoregional peribronchovascular thickening. Diffuse underlying emphysematous changes. Pleural spaces: Unremarkable. No pneumothorax. No pleural effusion. Heart: Unremarkable. No cardiomegaly. No pericardial effusion. Coronary arteries: Atherosclerotic calcification of coronary arteries. Lymph nodes: Confluent, left hilar lymphadenopathy with largest discrete lymph node measuring 1.6 cm. Pancreas: Diffusely atrophic pancreas with multifocal pancreatic parenchyma and ductal calcification Bones/joints: No acute findings identified. Soft tissues: Unremarkable. Other findings: . IMPRESSION: 1. No central or segmental pulmonary arterial embolism identified. 2. Left upper lobar mass extending into anterior mediastinum, abutting thoracic aorta with at least partially segmental/subsegmental pulmonary vessels, locoregional infiltrative lymphangitic carcinomatosis and hilar lymphadenopathy. 3. Chronic pancreatitis. COMMENTS: The presence of pulmonary emphysema on CT is an independent risk factor for lung cancer. In the absence of a history or active diagnosis of lung cancer, it is recommended that this patient with emphysema be evaluated for enrollment in a low dose CT lung cancer screening program.
--- NOTE | 2025-02-11 23:36 | CT_ITS ---
PROCEDURE INFORMATION: Exam: CT Abdomen And Pelvis With Contrast Exam date and time: 02/12/2025 12:06 AM Age: 69 years old Clinical indication: Other: Diarrhea, left low back pain TECHNIQUE: Imaging protocol: Computed tomography of the abdomen and pelvis with contrast. 3D rendering (Not supervised by radiologist): MIP and/or 3D reconstructed images were created by the technologist. Radiation optimization: All CT scans at this facility use at least one of these dose optimization techniques: automated exposure control; mA and/or kV adjustment per patient size (includes targeted exams where dose is matched to clinical indication); or iterative reconstruction. Contrast material: ISOVUE; Contrast volume: 80 ml; Contrast route: IV; COMPARISON: CT ABDOMEN PELVIS WO CON 04/08/2024 1:31 PM FINDINGS: Liver: Unremarkable. No mass. Gallbladder and biliary ducts: Unremarkable. No calcified stones. No ductal dilation. Pancreas: Diffuse pancreatic atrophy with multifocal calcification and calculi in chronically dilated duct. No peripancreatic fat stranding. Spleen: Unremarkable. No splenomegaly. Adrenal glands: Unremarkable. No mass. Kidneys and ureters: No nephroureterolithiasis or hydroureter. Stomach and bowel: Diffuse nodular thickening and mucosal enhancement from cecum to distal sigmoid colon without significant diverticular disease. Nonobstructive pattern. Appendix: No evidence of appendicitis. Intraperitoneal space: Unremarkable. No free air. No significant fluid collection. Vasculature: Atherosclerotic calcification of aorta iliac arteries. Renal arterial atherosclerotic calcification with moderate to severe left renal ostial stenosis. Lymph nodes: Unremarkable. No enlarged lymph nodes. Urinary bladder: Unremarkable as visualized. Reproductive: Unremarkable as visualized. Bones/joints: No acute findings identified. Soft tissues: Unremarkable. IMPRESSION: 1. Non diverticular pancolitis. Query symptoms of C difficile colitis. 2. Chronic pancreatitis without obvious acute pancreatitis. 3. Left renal arterial osseous stenosis.
--- NOTE | 2025-02-11 23:36 | ECG_ITS ---
APPROVED REPORT Exam: Resting ECG HR:86 bpm ECG Measurements Heart Rate 86 AXES VA 260 P 95 QRSd 87 QRS 73 QT 342 T 104 QTc 386 Conclusion SINUS RHYTHM WITH FIRST DEGREE AV BLOCK SEPTAL MYOCARDIAL INFARCTION , PROBABLY OLD [40+ ms Q WAVE IN V1/V2] No STEMI Electronically signed by : NATY CLARK, 02/12/2025 23:12:02
[2025-02-11 23:37] VITALS: BP 131/113; PULSE 88; RESP 17; TEMP 36.9; O2SAT 92; BMI 23.6
--- NOTE | 2025-02-11 23:42 | [facility].EDCP ---
Discharge Plan Disposition Patient Disposition: Admitted Condition: Good Prescriptions Prescriptions: No Action buspirone 5 mg tablet 5 mg PO diltiazem HCl 120 mg tablet extended release 24 hr 120 mg PO duloxetine 60 mg capsule,delayed release(DR/EC) 60 mg PO losartan-hydrochlorothiazide 100-25 mg tablet 1 tab PO DAILY Qty: 30 3RF dapagliflozin propanediol [Farxiga] 10 mg tablet 10 mg PO DAILY Qty: 30 3RF insulin glargine [Basaglar KwikPen U-100 Insulin] 100 unit/mL (3 mL) insulin pen 20 unit SQ DAILY melatonin 3 mg capsule 9 mg PO HS PRN Mounjaro 7.5 mg/0.5 mL pen injector 7.5 mg SQ QWEEK Systane Balance 0.6 % drops 1 drp Eye-Both DAILY PRN dextromethorphan-guaifenesin 20-200 mg/15 mL liquid 20 ml PO .q12 hours magnesium oxide 400 mg magnesium tablet 400 mg PO DAILY ipratropium-albuterol 0.5 mg-3 mg(2.5 mg base)/3 mL solution for nebulization 1.5 ml inhalation BID pantoprazole 40 mg tablet,delayed release (DR/EC) 40 mg PO ONCE oxybutynin chloride 10 mg tablet extended release 24hr 10 mg PO DAILY 30 Days Qty: 30 0RF gabapentin 300 mg capsule 300 mg PO BID 30 Days Qty: 60 2RF simvastatin 40 mg tablet 40 mg PO HS Patient Comments: TAKE ONE TABLET BY MOUTH EVERY DAY AT BEDTIME Zenpep 10,000-32,000 -42,000 unit capsule,delayed release(DR/EC) 1 cap PO AC Patient Comments: TAKE ONE CAPSULE BY MOUTH THREE TIMES DAILY Trelegy Ellipta 200-62.5-25 mcg blister with device 1 inh INHALATION DAILY Patient Comments: INHALE 1 PUFF BY MOUTH DAILY DIRECTED carvedilol 25 mg Tablet 25 mg PO BID 30 Days Qty: 60 0RF insulin glargine [Basaglar KwikPen U-100 Insulin] 100 unit/mL (3 mL) insulin pen 25 unit SQ HS acetaminophen 500 mg Tablet 500 mg PO Q4HP PRN (Reason: pain/fever) albuterol sulfate [Ventolin HFA] 90 mcg/actuation HFA aerosol inhaler 2 inh INHALATION QID 30 Days Qty: 0 0RF Patient Comments: INHALE TWO PUFFS BY MOUTH EVERY 6 HOURS NEEDED --SHAKE WELL BEFORE USE-- Referrals Follow up/Referrals: Provider,Referral, [Referring, Medical] - See instructions Clinical Impressions Clinical Impression: Unstable angina, CKD (chronic kidney disease) Print Language Print Language: Citizen Of [place] Discharge ED Provider: Caitlyn Hernandez General Chief Complaint: Chest Pain Stated Complaint: labs drawn 02/11 AM, critical trop 6.063, SOA, CP Time Seen by Provider: 02/11/25 23:30 History of Present Illness HPI narrative: 69-year-old male with history of COPD, mitral regurg, type 2 diabetes, hypertension presents to the ER from senior living with EMS. EMS reports they were called because senior living had drawn labs today after the patient reported not feeling well and noted a troponin over 6.0. Initially EMS had received report that patient did not have any chest pain but when they arrived on scene they were told he did have some chest pain, patient is primarily complaining of left lower back pain which she reports is not new. He has been having diarrhea. When explicitly asked about chest pain, he states it has been coming and going for the last week and feels like a weight sitting in the center of his chest. He denies difficulty breathing, he has chronic cough that he states is at baseline. He is a smoker. He denies dysuria or hematuria but states he makes very little urine and has difficulty urinating. He has no nausea or vomiting. Denies fevers or chills. Denies headache, numbness, tingling, or weakness. No other complaints or concerns at this time. EMS reports they gave the patient 500 mL normal saline during transportation. No other medications administered. Related Data Home Medications ?Medication ?Instructions ?Recorded ?Confirmed fluticasone fur. 200 mcg-umeclid 1 inh inhalation DAILY 05/06/23 02/03/25 62.5 mcg-vilant 25 mcg inhalat.powder (Trelegy Ellipta) rwzdfr-khwjpeis-zraizmb 1 cap PO AC 05/06/23 02/03/25 10,000-32,000-42,000 unit capsule,delayed rel (Zenpep) simvastatin 40 mg tablet 40 mg PO HS 05/06/23 02/03/25 acetaminophen 500 mg tablet 500 mg PO Q4HP PRN pain/fever 07/22/23 02/03/25 buspirone 5 mg tablet 5 mg PO 11/17/24 02/03/25 diltiazem HCl 120 mg 120 mg PO 11/17/24 02/03/25 tablet,extended release 24 hr duloxetine 60 mg capsule,delayed 60 mg PO 11/17/24 02/03/25 release ipratropium 0.5 mg-albuterol 3 mg 1.5 ml inhalation BID 01/17/25 02/03/25 (2.5 mg base)/3 mL nebulization soln pantoprazole 40 mg tablet,delayed 40 mg PO ONCE 01/17/25 02/03/25 release dextromethorphan-guaifenesin 20 20 ml PO .q12 hours 02/03/25 02/03/25 mg-200 mg/15 mL oral liquid insulin glargine 100 unit/mL (3 20 unit SQ DAILY 02/03/25 02/03/25 mL) subcutaneous pen (Basaglar KwikPen U-100 Insulin) insulin glargine 100 unit/mL (3 25 unit SQ HS 02/03/25 02/03/25 mL) subcutaneous pen (Basaglar KwikPen U-100 Insulin) magnesium oxide 400 mg PO DAILY 02/03/25 02/03/25 melatonin 3 mg capsule 9 mg PO HS PRN 02/03/25 02/03/25 propylene glycol 0.6 % eye drops 1 drp Eye-Both DAILY PRN 02/03/25 02/03/25 (Systane Balance) tirzepatide 7.5 mg/0.5 mL 7.5 mg SQ QWEEK 02/03/25 02/03/25 subcutaneous pen injector (Madeleine) Previous Rx's ?Medication ?Instructions ?Recorded albuterol sulfate 90 mcg/actuation 2 inh inhalation QID 30 days #0 07/23/23 aerosol inhaler (Ventolin HFA) grams gabapentin 300 mg capsule 300 mg PO BID 30 days #60 caps 03/28/24 carvedilol 25 mg tablet 25 mg PO BID 30 days #60 tabs 04/10/24 dapagliflozin propanediol 10 mg 10 mg PO DAILY #30 tabs 04/19/24 tablet (Farxiga) losartan 100 1 tab PO DAILY #30 tabs 11/17/24 mg-hydrochlorothiazide 25 mg tablet oxybutynin chloride 10 mg 10 mg PO DAILY 30 days #30 tabs 01/23/25 tablet,extended release 24 hr Allergies Allergy/AdvReac Type Severity Reaction Status Date / Time No Known Allergies Allergy Verified 02/03/25 11:05 [facility] Disclaimer: The information contained in this section may have been updated after the patient was seen, as this information can be updated by other users. Medical History (Updated 02/12/25 @ 01:02 by Caitlyn Hernandez MD) Encounter for special screening examination for neoplasm of respiratory organ Mitral regurgitation SOB (shortness of breath) T12 compression fracture Wlfvu-cj-uuzgnpe kidney injury GERD (gastroesophageal reflux disease) Adult failure to thrive Fall Acute pain of left hip Acute hyperkalemia [place] (acute kidney injury) Altered mental status Prostate cancer COPD mixed type Neuropathy Frequent falls Abnormal computerized axial tomography of chest Tobacco abuse Smoking greater than 30 pack years Dyspnea on exertion Pulmonary emphysema Cavitary lesion of lung Lung abscess COVID COVID CKD (chronic kidney disease) Chronic pancreatitis due to chronic alcoholism Hyponatremia Pneumonia COPD (chronic obstructive pulmonary disease) Asthma Alcohol abuse Anxiety Depression Arthritis Irritable bowel syndrome (IBS) History of gastroesophageal reflux (GERD) Diabetes mellitus, type 2 Hypertension Hyperlipidemia Colon cancer Pneumonia Hypomagnesemia Hyponatremia Chronic pancreatitis Protein-calorie malnutrition, moderate Acute alcoholic pancreatitis Alcohol withdrawal Illiteracy Transaminitis Type 2 diabetes mellitus Macrocytic anemia Protein-calorie malnutrition, mild Acute renal failure Chronic alcohol abuse [place] (acute kidney injury) Polysubstance abuse Acute pancreatitis Alcoholic pancreatitis Alcoholism HTN (hypertension) COPD (chronic obstructive pulmonary disease) Hx of malignant neoplasm of colon Tobacco use disorder Surgical History History of cataract surgery S/P TURP History of colon resection History of colonoscopy Hx of prostatectomy Family History Mother Family history of diabetes mellitus type II Social History Smoking Status: Current every day smoker tobacco type: cigarettes packs per day: 1 years smoked: 54 quit status: has quit before second hand exposure: Yes alcohol intake: former counseling provided: provider counseling substance use type: marijuana current occupational status: disabled Travel in the last 8 weeks?: None household members: none housing: apartment lives independently: Yes (home health comes twice a week ) marital status: current occupational exposures/hazards: No caffeine: Yes (coffee) physical activity: none do you feel safe at home: Yes Have you lived/traveled outside [place] in past 30 days?: No Contact w/someone who lives/traveled outside [place] past 30 days?: No Exposure to someone with infectious disease in past 14 days?: No Do you have a fever (greater than 100.4 F or 38 C)?: No Have you tested positive for COVID-19?: No Exposed to someone with COVID-19 in past 14 days?: No Do you have a sore throat?: No Do you have a cough?: No Do you have any weakness?: No Do you have any diarrhea?: No Are you experiencing any unusual bleeding?: No Do you have any muscle aches/pain?: No Do you have any abdominal pain?: No Are you experiencing loss of taste or smell?: No Other Medical History Have you received the Flu Vaccine for this season: No Have you received the Pneumonia Vaccine: Yes ROS Obtained: Yes Systems reviewed as appropriate & no additional complaints except as documented per HPI Physical Exam General General appearance: alert and in no apparent distress Comment: Chronically ill-appearing Head Head exam: atraumatic and normocephalic Eye Eye exam: Present PERRL and EOMI ENT ENT exam: Present mucous membranes moist Neck Neck exam: Present normal inspection and full ROM Chest Chest inspection: Present symmetric chest wall rise Respiratory Respiratory exam: Present wheezes (Mild end expiratory); Absent normal lung sounds bilaterally (Rhonchi in bilateral lung bases), respiratory distress, stridor or accessory muscle use Cardiovascular Cardiovascular exam: Present regular rate and normal rhythm Abdominal Exam Abdominal exam: Present soft; Absent distention, tenderness, guarding or rebound Extremities Exam Extremities exam: Present full ROM; Absent edema or calf tenderness Back Exam Back exam: Present paraspinal tenderness (Left lumbar paraspinal tenderness without evidence of traumatic injury); Absent CVA tenderness (R), CVA tenderness (L) or vertebral tenderness Neurological Exam Neurological exam: Present alert and oriented X3; Absent motor sensory deficit Psychiatric Psychiatric exam: Present normal affect and normal mood Skin Skin exam: Present warm and dry HEART Score HEART Score HEART Score assessment performed?: Yes History (anamnesis): Slightly suspicious ECG: Non-specific disturbance Age: >65 years Risk factors: 3 or more risk factors Troponin: 1-3x normal limit HEART Score: 6 Critical Care Critical Care Time Critical Care Time: No Medical Decision Making Medical Records Medical records reviewed: Yes I reviewed the patient's medical records. Steven Inquiry Pt receiving controlled substance: No Vital Signs Vital Signs: 02/11/25 23:37 02/11/25 23:48 02/12/25 00:29 Temperature 98.4 F Temperature Source Oral Pulse Rate 88 82 Pulse Rate [Right] 88 Respiratory Rate 17 15 Blood Pressure 115/70 Blood Pressure [Right Arm] 131/113 H Blood Pressure Mean [Right Arm] 119 02 Sat by Pulse Oximetry 92 L 92 L Oxygen Delivery Method Room Air Room Air Lab Data Labs: Lab Results 02/11/25 23:25: Lactate 0.9 02/11/25 23:35: WBC 8.4, RBC 4.42 L, Hgb 11.5 L, Hct 35.7 L, MCV 80.8, MCH 26.0 L, MCHC 32.2, RDW 14.1, Plt Count 294, MPV 9.3, Neut % (Auto) 89.9 H, Lymph % (Auto) 8.7 L, Schley % (Auto) 0.7 L, Eos % (Auto) 0.0 L, Baso % (Auto) 0.1, Neut # (Auto) 7.5, Lymph # (Auto) 0.7, Schley # (Auto) 0.1, Eos # (Auto) 0.0, Baso # (Auto) 0.0, PT 11.9, INR 1.08, Sodium 130 L, Potassium 4.8, Chloride 99, Carbon Dioxide 22, Anion Gap 13.8, BUN 45 H, Creatinine 1.90 H, Estimated Creat Clear 36, Estimated GFR 35 L, Est GFR ( Amer) 43 L, Glucose 266 H, Calcium 8.7, Total Bilirubin 0.4, AST 20, ALT 13, Alkaline Phosphatase 148 H, Troponin I 0.05 H, NT-Pro-B Natriuret Pep 649 H, Total Protein 6.7, Albumin 3.6, Globulin 3.1, Albumin/Globulin Ratio 1.2 02/11/25 23:36: VBG pH 7.31, VBG pCO2 46.6, VBG pO2 71.5 H, VBG HCO3 22.8 L, VBG Total CO2 24.3, VBG O2 Saturation 93.8 H, VBG Base Excess -3.5 L, VBG Lactic Acid 1.3 02/11/25 23:35 02/11/25 23:35 Response Orders (Tests/Meds): ED MEDICATIONS Generic Name Dose Route Start Last Admin Trade Name Freq PRN Reason Stop Dose Admin Nitroglycerin 0.4 mg 02/11/25 23:30 02/11/25 23:52 Nitroglycerin 0.4mg Sl Tablet SL 02/12/25 23:30 0.4 mg Q5MINP PRN Administration Chest Pain Discontinued Medications Generic Name Dose Route Start Last Admin Trade Name Freq PRN Reason Stop Dose Admin Aspirin 324 mg 02/11/25 23:30 02/11/25 23:52 Aspirin 81mg Chewable Tablet PO 02/11/25 23:31 324 mg ONCE ONE Administration Lactated Ringer's 500 mls @ 999 mls/hr 02/11/25 23:54 02/12/25 00:25 Lactated Ringer's 500ml IV 02/12/25 00:24 999 mls/hr .Q31M ONE Administration Iopamidol 80 ml 02/12/25 00:04 02/12/25 00:05 Iopamidol-370 (76%);100ml Bottle IV 02/12/25 00:05 80 ml ONCE ONE Administration Sodium Chloride 50 ml 02/12/25 00:04 02/12/25 00:05 0.9 % Sodium Chloride 50 Ml Vial IV 02/12/25 00:05 50 ml ONCE ONE Administration Sodium Chloride 10 ml 02/12/25 00:04 02/12/25 00:05 Sodium Chloride 0.9% 10ml Syr (Rad Only) IV 02/12/25 00:05 10 ml ONCE ONE Administration ORDERS Category Date Time Status CT abdomen pelvis w con Stat Cat Scan 02/11/25 23:[address] angio chest PE protocol Stat Cat Scan 02/11/25 23:36 Taken Complete Blood Count Auto Diff Stat Lab 02/11/25 23:35 Completed Comprehensive Metabolic Panel Stat Lab 02/11/25 23:35 Completed Full Resp Panel w/COVID ([facility]) Routine Lab 02/12/25 01:01 Ordered Lactic Acid Stat Lab 02/11/25 23:25 Completed NT Pro Brain Natriuretic Pep. Stat Lab 02/11/25 23:35 Completed Prothrombin Time INR Stat Lab 02/11/25 23:35 Completed Troponin I Q3H Lab 02/12/25 02:30 Ordered Troponin I Q3H Lab 02/12/25 05:30 Ordered Troponin I Stat Lab 02/11/25 23:35 Completed Urinalysis and Microscopic Stat Lab 02/11/25 23:36 Ordered Venous Blood Gas Stat RT 02/11/25 23:36 Completed 12-lead EKG Request [ECG Request] Stat Y 02/11/25 23:36 Ordered MDM Narrative Medical Decision Narrative: In summary, this 69-year-old male with comorbidities described in the HPI presents to the emergency department today with elevated troponin from senior living, intermittent chest pressure, left low back pain, diarrhea, chronic cough. On initial evaluation patient is hemodynamically stable, afebrile, alert, oriented, denies having active chest pain at this time, benign abdominal exam, cardiac exam benign, no peripheral edema, pulmonary exam with rhonchi at bilateral lung bases, mild end expiratory wheezes but no accessory muscle use, no respiratory distress, saturating in the low 90s on room air, back exam with mild left lumbar paraspinal tenderness but no evidence of traumatic injury, no neurologic deficits. Differential diagnosis includes but is not limited to ACS, PE, viral syndrome, pneumothorax, COPD, hypercarbia, kidney dysfunction, urinary tract infection, diverticulosis, diverticulitis, among others. Based on these concerns, I ordered hematologic and serum labs, cardiac workup, CTA PE, CT abdomen pelvis, urinalysis, VBG. ECG personally interpreted demonstrates sinus rhythm, first-degree AV block, rate 86, normal axis, IL 260, normal QTc, there is slight IL depression in the inferior leads, no STEMI. Patient received aspirin initially for treatment. Labs personally reviewed demonstrate no leukocytosis, anemia slightly worse than September but still nonactionable, normal platelets, VBG nonactionable, no hypercarbia, normal pH, VBG lactic 1.3, patient has mild hyponatremia, slightly worse than previous but not critically low, patient has kidney dysfunction slightly improved from prior, creatinine 1.9 previously 2.2 in November. PT/INR normal, troponin mildly elevated at 0.05, up from his baseline but not nearly as elevated as was reported by senior living. Even if patient had had a cardiac event I would not expect his troponin to have changed that dramatically in 12 hours. I suspect lab error from the nursing. BNP is also somewhat elevated but patient does not look grossly volume overloaded. CTA PE and CT abdomen pelvis personally interpreted do not demonstrate acute intrathoracic abnormality, there is no large PE that I appreciate, I do not appreciate bowel obstruction or other acute abnormality on the CT abdomen pelvis either. See radiology reads for final interpretations which are pending at this time. On reassessment patient is not having chest pressure at this time but with a waxing and waning nature of his chest pressure, reports of elevated troponin at senior living, slightly elevated troponin here, and his other comorbidities I recommended admission to the patient. He is agreeable to this. I discussed this case with the hospitalist including his presentation, report from senior living, findings on workup here, and my personal interpretations of CTs. Patient was graciously accepted for admission.
--- OUTSIDE RECORDS SUMMARY | 2025-02-11 23:44 | XMS_ITS | Clinical Summary ---
Author Organization [facility] Address [address] [place] [address] Care Team Providers Care Maintainability Engineer Name Role Phone Shankar Raya MD Primary Care Provider + [phone] Allergies No known active allergies Medications DULoxetine [...] Take 1 tablet by mouth daily. Active Fluticasone-Um eclidin-Vilant (Trelegy Ellipta) 200-62.5-25 MCG/ACT aerosol powder Inhale. Activ e Glycerin-Hypro mellose-PEG 400 (VISINE DRY EYE OP) Administer into affected eye(s). Active allopurinol (Zyloprim) 100 MG tablet Take 1 tablet by mouth 2 times a day. Active carvedilol (Coreg) 12.5 MG tablet Take 1 tablet by mouth 2 times a day with meals. Active gabapentin (Neurontin) 300 MG capsule Take 1 capsule by mouth 2 times a day. Active guaiFENesin-co deine (Robitussin-AC ) 100-10 MG/5ML syrup Take by mouth. Ac tive pancrelipase, Jpq-Eiay-Rztm, (Zenpep) 32514-10294 units capsule delayed-releas e particles capsule Take 1 capsule by mouth 3 times a day with meals. Active magnesium oxide (Mag-Ox) 400 mg tablet 1 tablet daily. Active metFORMIN (Glucophage) 500 MG tablet Take 1 [...] (NOVOLIN R IJ) Inject as directed. Active ipratropium-al buterol (Duo-Neb) 0.5-2.5 mg/3 mL nebulizer solution Take 3 mL by nebulization every 6 hours as needed for wheezing. Active diclofenac (Voltaren) 1 % topical gel Apply as directed to area Active dilTIAZem CD (Cardizem CD) 120 MG 24 hr capsule Take 1 capsule by mouth daily. Active dapagliflozin (Farxiga) 10 MG tablet Take 1 tablet by mouth daily. Active losartan-hydro CHLOROthiazide (Hyzaar) 50-12.5 MG tablet Take 1 tablet by mouth daily. Active magnesium oxide (Mag-Ox) 400 (240 Mg) MG tablet Take 1 tablet by mouth daily. Active ibuprofen (IBU) 800 MG tablet Take 1 tablet by mouth every 6 hours as needed for mild pain. 025 Discontin ued(Side effects) Encounters Date Type Department Care Team Description 02/10/2025 10:40 AM EDT Office Visit [facility] [address] [place] [id number] Ira Neely APRN CKD (chronic kidney disease) stage 4, GFR 15-29 ml/min (CMS/HCC) (Primary Dx); Essential hypertension; Diabetes mellitus due to underlying condition with diabetic chronic kidney disease, unspecified CKD stage, unspecified whether watermelon inspector insulin use ([facility]); Chronic kidney disease-mineral and bone disorder; Anemia due to stage 4 chronic kidney disease from Last 3 Months Immunizations Immunization Administration Dates Next Due Influenza, High-dose, Split Virus, Trivalent, Injectable, preservative free 06/25/2022 Influenza, injectable, quadrivalent 02/25/2017 Influenza, injectable, quadrivalent, preservativ e free 06/30/2020 Influenza, seasonal, injectable 06/25/2022 PPD Skin Test (TB Skin Test) 08/26/2022,08/20/19 Pneumococcal Polysaccharide PPV23 11/14/2016 Td (adult) 05/15/2018 [...] Description 06/23/2025 10:40 AM EST Office Visit [facility] [address] [place] [phone] Ira Neely, BRUISE TRIMMER [address] [address] Health Maintenance Due Date Last Done Comments [facility]-Depression Screening 1955 [facility]-Diabetes: Hemoglobin A1C 1955 [facility]-Hepatitis C Screening 1955 [facility]-Medicare Annual Wellness (AWV) 1955 [facility]-/Child/Adol SDOH Screenings 1955 Diabetes: Dental Exam 1965 [...] 05/15/2018 [facility]-Abdominal Aortic Aneurysm (AAA) Screening 2020 [id number] Vaccine (2 - 2024- season) 2025 10/05/2020 [facility]-Influenza Vaccine (#1) 01/30/202506/25, 06/25/2022, 06/30/2020, Additional history exists [facility]-Obesity Intervention Completed 02/10/2025, 08/31 HPV Vaccines Aged Out No longer eligi [...] to complete this topic Insurance currently at [facility] [place] [id number] [place] [address] [place] Care Teams Maintainability Engineer Relationship Specialty Start Date End Date Shankar Raya MD [address] [address] [place], [place] [address] PCP - General 10/12/20
[2025-02-11 23:45] LABS: Hematocrit 35.7 % (42.0-52.0); Hemoglobin 11.5 g/dL (14.1-18.0); Immature Granulocytes % 0.6 %; Mean Corpuscular HGB Conc 32.2 g/dL (31.8-35.4); Mean Corpuscular Hemoglobin 26.0 pg (27.0-31.2); Mean Corpuscular Volume 80.8 fl (80-94); Nucleated Red Blood Cells % 0 %; Platelet Count 294 K/mm3 (142-424); Red Blood Count 4.42 M/mm3 (4.60-6.20); Red Cell Distribution Width-SD 41.5 fL; White Blood Count 8.4 K/mm3 (4.8-10.8)
[2025-02-11 23:46] LABS: Lactate Venous 1.3 mmol/L (0.4-2.0); VBG HCO3 22.8 mmol/L (23-30); VBG PCO2 46.6 mmol/L (35-51); VBG PH 7.31 mmol/L (7.31-7.41); VBG PO2 71.5 mmol/L (28-40)
[2025-02-11 23:48] VITALS: PULSE 88
[2025-02-11 23:50] LABS: Albumin Level 3.6 g/dl (3.5-5.0); Chloride 99 mmol/L (98-107); Potassium 4.8 mmoL/L (3.5-5.1); Sodium 130 mmol/L (136-145)
[2025-02-11 23:52] LABS: Alanine Aminotransferase 13 U/L (12-78); Aspartate Amino Transferase 20 U/L (17-59); Blood Urea Nitrogen 45 mg/dl (9-20); Creatinine Clearance Estimated 36 mL/min (50-200); Creatinine,Serum 1.90 mg/dl (0.66-1.25); Estimated Glomerular Filt Rate 35 ml/min (>60); GFR (African American) 43 ML/MIN (>60); INR 1.08 (0.9-1.1); Prothrombin Time 11.9 seconds (10.1-12.5)
[2025-02-11] MEDS: NITROGLYCERIN 0.4MG SL TABLET 0.4 MG SL (23:52)
[2025-02-11] MEDS: ASPIRIN 81MG CHEWABLE TABLET 324 MG PO (23:52)
[2025-02-11 23:53] LABS: Albumin/Globulin Ratio 1.2 (1.1-1.8); Alkaline Phosphatase 148 U/L (38-126); Anion Gap 13.8 mEq/L (5-15); Bilirubin,Total 0.4 mg/dl (0.2-1.3); Calcium 8.7 mg/dl (8.4-10.2); Carbon Dioxide 22 mmol/L (22.0-30.0); Globulin 3.1 g/dL (1.3-3.2); Glucose 266 mg/dl (74-100); Total Protein,Serum 6.7 g/dl (6.3-8.2)
--- NOTE | 2025-02-11 23:54 | PC.NURSE ---
PT provided with urinal r/t need for UA. Stated he doesnt need to urinate at this time but would ring if needed assistance
[2025-02-12] VITALS (18 sets, daily range): BP systolic 114–141; BP diastolic 66–93; PULSE 60–90; RESP 14–24; TEMP 36.3–36.9; O2SAT 91–96; BMI 22.6
[2025-02-12 00:04] LABS: Troponin I 0.05 ng/ml (0.00-0.034)
[2025-02-12 00:05] LABS: NT Pro Brain Natriuretic Pep. 649 pg/mL (0-125)
[2025-02-12] MEDS: IOPAMIDOL-370 (76%);100ML BOTTLE 80 ML IV (00:05)
[2025-02-12] MEDS: SODIUM CHLORIDE 0.9% 10ML SYR (RAD ONLY) 10 ML IV (00:05)
[2025-02-12] MEDS: 0.9 % SODIUM CHLORIDE 50 ML VIAL IV (00:05)
[2025-02-12] MEDS: RINGERS SOLUTION,LACTATED 500 ML 999 ML IV (00:25)
[2025-02-12 01:13] LABS: Adenovirus,PCR Not Detected (NotDetected); Chlamydophila Pneumoniae, PCR Not Detected (NotDetected); Coronavirus 19, PCR Not Detected (NotDetected); Coronovirus HKU1,PCR Not Detected (NotDetected); Influenza A, PCR Not Detected (NotDetected); Influenza AH1, 2009 Not Detected (NotDetected); Influenza AH1, PCR Not Detected (NotDetected); Influenza AH3,PCR Not Detected (NotDetected); Influenza B, PCR Not Detected (NotDetected); Mycoplasma Pneumoniae, PCR Not Detected (NotDetected); Parainfluenza 1, PCR Not Detected (NotDetected); Parainfluenza 2, PCR Not Detected (NotDetected); Parainfluenza 3, PCR Not Detected (NotDetected); Parainfluenza 4, PCR Not Detected (NotDetected)
--- NOTE | 2025-02-12 01:15 | PC.NURSE ---
Report called to CANDIS Johnson
--- NOTE | 2025-02-12 01:24 | PC.NURSE ---
Updated [employer] [employer] [facility] r/t PT condition. Nurse Adriana. Adriana stated the initial Trop was 0.063, repeated number with nurse - 0.063 - she reclarified. Notified provider of change is initial Trop report received.
--- NOTE | 2025-02-12 01:29 | P.HP_ITS ---
<Statement entered by Forrest Dominguez MD - 02/12/25 16:45> Personally evaluated patient and agree with the plan of care as outlined by the BEE ROBBER. Extensively discussed left upper lobe lesion findings with patient and daughter at bedside. Lesion is concerning for cancer, patient has a history of prostate cancer s/p total prostatectomy and colon cancer s/p resection. He fo llows with Dr. Phillips who recently noted that his PSA level is elevated, however I am unable to find his elevated PSA. PSA levels were normal in November 2024. Patient and daughter are tearful that left upper lobe lesion is concerning for cancer. At this time, patient is not interested in treatment. I advised Dr. Queen with pulmonology will be discussing in further detail tomorrow regarding left upper lobe lesion to which they are agreeable. N.p.o. at midnight for possible bronchoscopy in the morning. Continue Zosyn for pancolitis, no significant abdominal pain today. Follow-up stool PCR. History of Present Illness *Admission Date: 02/12/25 *Reason for visit:: Generalized weakness, shortness of breath *History of present illness: This is a 69-year-old male with a past medical history of COPD, prior lung nodule with cavitary lung lesion and abscess followed by Dr. Queen, hypertension, hyperlipidemia, CKD, BPH, tobacco abuse, DM 2, prior colon cancer who presents emergency department today with reported elevated troponin at long term. Patient had been reporting chest pressure and difficulty breathing with productive cough over the last week. Outpatient labs were obtained and it was reported the patient's troponin was 6.9 there so he was sent to the emergency department. His troponin in fact was 0.069. He does endorse chest pressure, worsening cough and congestion. Also endorses diarrhea with mild abdominal pain. He denies any fever. States he feels generally unwell and this feeling of general fatigue and malaise is progressively worse. Emergency Department workup notable for elevated troponin at 0.05. EKG without ischemia. Elevated BNP of 649. 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 Also noted to have pancolitis on CT concerning for possible C. difficile infection. Patient is resting and in no distress on room air. States that he feels generally unwell but unable to elaborate on specific characteristics of this statement. Does have rhonchorous lung sounds. Given his findings of pancolitis and likely worsening lung nodule/metastatic disease he will benefit from admission to the hospital. He is admitted to the hospital service at this time [facility] Disclaimer: The information contained in this section may have been updated after the patient was seen, as this information can be updated by other users. Medical History (Updated 02/12/25 @ 02:02 by KRISTI Sepulveda) Encounter for special screening examination for neoplasm of respiratory organ Mitral regurgitation SOB (shortness of breath) T12 compression fracture Ekivo-zu-nbwddku kidney injury GERD (gastroesophageal reflux disease) Adult failure to thrive Fall Acute pain of left hip Acute hyperkalemia [place] (acute kidney injury) Altered mental status Prostate cancer COPD mixed type Neuropathy Frequent falls Abnormal computerized axial tomography of chest Tobacco abuse Smoking greater than 30 pack years Dyspnea on exertion Pulmonary emphysema Cavitary lesion of lung Lung abscess COVID COVID CKD (chronic kidney disease) Chronic pancreatitis due to chronic alcoholism Hyponatremia Pneumonia COPD (chronic obstructive pulmonary disease) Asthma Alcohol abuse Anxiety Depression Arthritis Irritable bowel syndrome (IBS) History of gastroesophageal reflux (GERD) Diabetes mellitus, type 2 Hypertension Hyperlipidemia Colon cancer Pneumonia Hypomagnesemia Hyponatremia Chronic pancreatitis Protein-calorie malnutrition, moderate Acute alcoholic pancreatitis Alcohol withdrawal Illiteracy Transaminitis Type 2 diabetes mellitus Macrocytic anemia Protein-calorie malnutrition, mild Acute renal failure Chronic alcohol abuse [place] (acute kidney injury) Polysubstance abuse Acute pancreatitis Alcoholic pancreatitis Alcoholism HTN (hypertension) COPD (chronic obstructive pulmonary disease) Hx of malignant neoplasm of colon Tobacco use disorder Surgical History History of cataract surgery S/P TURP History of colon resection History of colonoscopy Hx of prostatectomy Family History Mother Family history of diabetes mellitus type II Social History Smoking Status: Current every day smoker tobacco type: cigarettes packs per day: 1 years smoked: 54 quit status: has quit before second hand exposure: Yes alcohol intake: former counseling provided: provider counseling substance use type: marijuana current occupational status: disabled Travel in the last 8 weeks?: None household members: none housing: apartment lives independently: Yes (home health comes twice a week ) marital status: current occupational exposures/hazards: No caffeine: Yes (coffee) physical activity: none do you feel safe at home: Yes Have you lived/traveled outside US in past 30 days?: No Contact w/someone who lives/traveled outside US past 30 days?: No Exposure to someone with infectious disease in past 14 days?: No Do you have a fever (greater than 100.4 F or 38 C)?: No Have you tested positive for COVID-19?: No Exposed to someone with COVID-19 in past 14 days?: No Do you have a sore throat?: No Do you have a cough?: No Do you have any weakness?: No Do you have any diarrhea?: No Are you experiencing any unusual bleeding?: No Do you have any muscle aches/pain?: No Do you have any abdominal pain?: No Are you experiencing loss of taste or smell?: No Other Medical History Have you received the Flu Vaccine for this season: No Have you received the Pneumonia Vaccine: Yes Review of Systems Review of Systems Review of systems:: pertinent systems reviewed and negative unless documented below Review of systems (narrative): Negative except for HPI Meds Home Medications and Allergies Home Medications ?Medication ?Instructions ?Recorded ?Confirmed ?Type fluticasone fur. 200 mcg-umeclid 1 inh inhalation ROGELIO Y 05/06/23 02/03/25 History 62.5 mcg-vilant 25 mcg inhalat.powder (Trelegy Ellipta) llbxsj-tymaojyv-qeawqnw 1 cap PO AC 05/06/23 5 History 10,000-32,000-42,000 unit capsule,delayed rel (Zenpep) simvastatin 40 mg tablet 40 mg PO HS 05/06/23 5 History acetaminophen 500 mg tablet 500 mg PO Q4HP PRN pain/fe pedro luis 07/22/23 02/03/25 Hi story albuterol sulfate 90 mcg/actuation 2 inh inhalation QI D 30 days #0 07/23/23 02/03/25 Rx aerosol inhaler (Ventolin HFA) grams gabapentin 300 mg capsule 300 mg PO BID 30 days #60 ca ps 03/28/24 02/03/25 Rx carvedilol 25 mg tablet 25 mg PO BID 30 days #60 tab s 04/10/24 02/03/25 Rx dapagliflozin propanediol 10 mg 10 mg PO DAILY #30 tab s 04/19/24 02/03/25 Rx tablet (Farxiga) buspirone 5 mg tablet 5 mg PO 11/17/24 02/03/25 Hi story diltiazem HCl 120 mg 120 mg PO 11/17/24 02/03/25 History tablet,extended release 24 hr duloxetine 60 mg capsule,delayed 60 mg PO 11/17/2410/23 History release losartan 100 1 tab PO DAILY #30 tabs 10/3002/03/25 Rx mg-hydrochlorothiazide 25 mg tablet ipratropium 0.5 mg-albuterol 3 mg 1.5 ml inhalation BI D 01/17/25 02/03/25 History (2.5 mg base)/3 mL nebulization soln pantoprazole 40 mg tablet,delayed 40 mg PO ONCE 02/03/25 History release oxybutynin chloride 10 mg 10 mg PO DAILY 30 days #30 t abs 01/23/25 02/03/25 Rx tablet,extended release 24 hr dextromethorphan-guaifenesin 20 20 ml PO .q12 hours 02/03/25 History mg-200 mg/15 mL oral liquid insulin glargine 100 unit/mL (3 20 unit SQ DAILY 02/0302/03/25 History mL) subcutaneous pen (Basaglar KwikPen U-100 Insulin) insulin glargine 100 unit/mL (3 25 unit SQ HS 02/03/25 02/03/25 History mL) subcutaneous pen (Basaglar KwikPen U-100 Insulin) magnesium oxide 400 mg PO DAILY 02/03/2510/23 History melatonin 3 mg capsule 9 mg PO HS PRN 02/03/25 09/0 10/23 History propylene glycol 0.6 % eye drops 1 drp Eye-Both DAILY PRN 02/03/25 02/03/25 History (Systane Balance) tirzepatide 7.5 mg/0.5 mL 7.5 mg SQ QWEEK 02/03/2510/23 History subcutaneous pen injector (Madeleine) New Prescriptions to Start Prescriptions: Allergies Allergy/AdvReac Type Severity Reaction Status Date / Time No Known Allergies Allergy Verified 02/03/25 11:05 Exam Data for Last 24 hours Vital signs and Labs for Last 24 Hours: Temp Pulse Resp BP Pulse Ox O2 Del Method 98.5 F 80 16 120/73 92 L Room Air 02/12/25 01:19 02/12/25 01:19 02/12/25 01:19 02/12/25 01:19 02/12/25 00:29 02/12/25 01:19 Laboratory Results - last 24 hr 02/11/25 23:25: Lactate 0.9 02/11/25 23:35: WBC 8.4, RBC 4.42 L, Hgb 11.5 L, Hct 35.7 L, MCV 80.8, MCH 26.0 L, MCHC 32.2, RDW 14.1, Plt Count 294, MPV 9.3, Neut % (Auto) 89.9 H, Lymph % (Auto) 8.7 L, Yancey % (Auto) 0.7 L, Eos % (Auto) 0.0 L, Baso % (Auto) 0.1, Neut # (Auto) 7.5, Lymph # (Auto) 0.7, Yancey # (Auto) 0.1, Eos # (Auto) 0.0, Baso # (Auto) 0.0, PT 11.9, INR 1.08, Sodium 130 L, Potassium 4.8, Chloride 99, Carbon Dioxide 22, Anion Gap 13.8, BUN 45 H, Creatinine 1.90 H, Estimated Creat Clear 36, Estimated GFR 35 L, Est GFR ( Amer) 43 L, Glucose 266 H, Calcium 8.7, Total Bilirubin 0.4, AST 20, ALT 13, Alkaline Phosphatase 148 H, Troponin I 0.05 H, NT-Pro-B Natriuret Pep 649 H, Total Protein 6.7, Albumin 3.6, Globulin 3.1, Albumin/Globulin Ratio 1.2 02/11/25 23:36: VBG pH 7.31, VBG pCO2 46.6, VBG pO2 71.5 H, VBG HCO3 22.8 L, VBG Total CO2 24.3, VBG O2 Saturation 93.8 H, VBG Base Excess -3.5 L, VBG Lactic Acid 1.3 I & O for Last 24 hours: Intake & Output 09/1102/10/25 02/11/25 02/12/25 23:59 23:59 23:59 23:59 Weight 70.307 kg Constitutional Constitutional: no acute distress *Routine HEENT Exam Head: Present normocephalic Eye: Present EOMI and PERRL ENT: Present mucous membranes moist *Routine Neck Exam Neck: Present supple; Absent lymphadenopathy *Routine Respiratory Exam Respiratory: Present rhonchi, wheezes and crackles *Routine Cardiovascular Exam Cardiovascular: Present RRR *Routine Abdominal Exam Abdominal: Present soft and normoactive bowel sounds; Absent tenderness *Routine Rectal Exam Rectal:: deferred *Routine Genitalia Exam Genitalia:: deferred *Routine Extremities Exam Extremities: Absent cyanosis, clubbing or edema *Routine Skin Exam Skin: Present warm; Absent rash *Routine Neurological Exam Neurological: Present alert and oriented X3 Assessment and Plan *Assessment and plan (1) Abnormal CT of the chest: Status: Acute Category: Medical Code(s): R93.89 - Abnormal findings on diagnostic imaging of other specified body structures (2) NSTEMI (non-ST elevated myocardial infarction): Status: Acute Category: Medical Code(s): I21.4 - Non-ST elevation (NSTEMI) myocardial infarction (3) CKD (chronic kidney disease), stage IV: Status: Acute Category: Medical Code(s): N18.4 - Chronic kidney disease, stage 4 (severe) (4) Diabetes mellitus with diabetic neuropathy: Status: Acute Qualifiers: Diabetes mellitus bed bug exterminator insulin use: with bed bug exterminator use Diabetes mellitus type: type 2 Qualified Code(s): E11.40 - Type 2 diabetes mellitus with diabetic neuropathy, unspecified; Z79.4 - intermediate (current) use of insulin Category: Medical Code(s): E11.40 - Type 2 diabetes mellitus with diabetic neuropathy, unspecified (5) Type 2 diabetes mellitus: Status: Chronic Qualifiers: Diabetes mellitus complication detail: with polyneuropathy Diabetes mellitus complication status: with neurologic complications Diabetes mellitus bed bug exterminator insulin use: without group home use Qualified Code(s): E11.42 - Type 2 diabetes mellitus with diabetic polyneuropathy Category: Medical Code(s): E11.9 - Type 2 diabetes mellitus without complications (6) HTN (hypertension): Status: Chronic Qualifiers: Hypertension type: essential hypertension Qualified Code(s): I10 - Essential (primary) hypertension Category: Medical Code(s): I10 - Essential (primary) hypertension Plan Admit to medicine #Abnormal CT of the chest Followed by Dr. Queen. Has had previous workup for cavitary lung lesion in the right upper lobe as well as infected bullae and abscess. Last seen by Dr. Queen on 02/03/2025. Had infectious workup with positive cultures for Klebsiella and Pseudomonas and was started on 10 days of levofloxacin. Today CT of the chest shows significant left upper lobe lung lesion concerning for carcinomatosis with some encasement of pulmonary arteries although patent flow Will need follow-up outpatient versus inpatient consult on Thursday Pulmonary consult ordered Patient reports significant sputum production. Will continue antibiotic coverage Will initiate Zosyn with close monitoring given renal impairment #COPD exacerbation Mild, persistent wheezing noted. Likely secondary to mild exacerbation vert versus mass burden Continue bronchodilator Continue antibiotic therapy #Type II AK Elevated troponin to 0.05. Likely secondary to ongoing process of shortness of breath, COPD exacerbation. Likely not CAD in nature. Patient denies chest pain. EKG without ischemia. Continue to trend troponin #CKD stage IIIb Renal function at baseline. Patient does have history of prostate cancer Monitor renal function with Zosyn administration Avoid other nephrotoxic medications #Colitis CT with evidence of pancolitis concerning for C. difficile. Patient does have reported diarrhea. Will obtain an diarrhea PCR with C. difficile panel Currently covering for pancolitis with Zosyn. Monitor renal function on antibiotic #T2DM Basal bolus insulin regimen ACHS Accu-Cheks #Hypertension Continue home medications once reconciled
[2025-02-12] MEDS: guaiFENesin 600 MG TAB.ER.12H PO ×3 (01:45→20:18)
[2025-02-12] MEDS: humaLOG 100 UNITS/ML 10ML VIAL (SSI) SUBCUT ×4 (01:50→18:17)
[2025-02-12] MEDS: PIPERACILLIN/TAZO 3.375 GM in 0.9 % SODIUM CHLORIDE 50 ML IV ×4 (01:51→20:18)
[2025-02-12 01:54] LABS: POC Glucose,Bedside 213 gm/dL (70-110)
--- NOTE | 2025-02-12 02:31 | PC.NURSE ---
Arrived to floor via wheelchair @ [phone]
[2025-02-12 03:28] LABS: Troponin I 0.05 ng/ml (0.00-0.034)
[2025-02-12 04:13] LABS: Microscopic, Urine URINE MICROSCOPIC (MICROSCOPIC)
--- NOTE | 2025-02-12 04:14 | PC.NURSE ---
Alert and oriented. Has had no chest pain since arriving to the floor. Patient admits to having diarrhea this yesterday morning, no bowel movement this shift. Room air. Lung sounds rhonchi and wheezing. Patient can ambulate standby assist. Bed alarm on. Call light in reach.
[2025-02-12 04:19] LABS: Bilirubin,Urine Negative (Negative); Color,Urine YELLOW (Yellow); Glucose,Urine (UA) 3+ (Negative); Ketones,Urine Negative (Negative); Leukocyte Esterase,Urine Negative (Negative); PH,Urine 5.5 (5.0-8.5); Protein,Urine Negative (Negative); Specific Gravity, Urine <= 1.005 (1.005-1.030); Urobilinogen,Urine 0.2 EU/dl (0.2)
[2025-02-12 04:28] LABS: RBC,Urine Occasional #/hpf (0-3)
[2025-02-12 06:33] LABS: Hematocrit 36.5 % (42.0-52.0); Hemoglobin 11.7 g/dL (14.1-18.0); Immature Granulocytes % 1.2 %; Mean Corpuscular HGB Conc 32.1 g/dL (31.8-35.4); Mean Corpuscular Hemoglobin 25.8 pg (27.0-31.2); Mean Corpuscular Volume 80.6 fl (80-94); Nucleated Red Blood Cells % 0 %; Platelet Count 307 K/mm3 (142-424); Red Blood Count 4.53 M/mm3 (4.60-6.20); Red Cell Distribution Width-SD 40.8 fL; White Blood Count 7.7 K/mm3 (4.8-10.8)
[2025-02-12 06:51] LABS: Anion Gap 13.2 mEq/L (5-15); Blood Urea Nitrogen 43 mg/dl (9-20); Calcium 8.7 mg/dl (8.4-10.2); Carbon Dioxide 22 mmol/L (22.0-30.0); Chloride 100 mmol/L (98-107); Creatinine Clearance Estimated 37 mL/min (50-200); Creatinine,Serum 1.80 mg/dl (0.66-1.25); Estimated Glomerular Filt Rate 38 ml/min (>60); GFR (African American) 45 ML/MIN (>60); Glucose 142 mg/dl (74-100); Potassium 5.2 mmoL/L (3.5-5.1); Sodium 130 mmol/L (136-145)
[2025-02-12] MEDS: IPRATROPIUM/ALBUTEROL 3 ML NEB IH ×4 (07:14→23:05)
[2025-02-12 07:39] LABS: Troponin I 0.04 ng/ml (0.00-0.034)
[2025-02-12] MEDS: dilTIAZem ER 120MG CAPSULE 120 MG PO (09:21)
[2025-02-12] MEDS: ASPIRIN EC 81MG TABLET 81 MG PO (09:21)
--- NOTE | 2025-02-12 10:08 | P.CONPHA_ITS ---
Pharmacy Intervention Comments: MEDICATION RECONCILIATION COMPLETE USING MAR FROM [facility].
--- NOTE | 2025-02-12 10:08 | HMH.PHAINT1 ---
Pharmacy Intervention Comments: MEDICATION RECONCILIATION COMPLETE USING MAR FROM [facility].
[2025-02-12] MEDS: SODIUM CHLORIDE 3% 15ML NEB 3 ML IH (11:30)
[2025-02-12 12:24] LABS: POC Glucose,Bedside 183 gm/dL (70-110)
[2025-02-12] MEDS: FLUTICASONE/UMECLIDIN/VILANTER 200/62.5/25MCG INHALER 1 PUFF IH (15:40)
[2025-02-12] MEDS: PANTOPRAZOLE 40MG TABLET 40 MG PO (15:40)
--- NOTE | 2025-02-12 17:14 | PC.NURSE ---
Pt is A&OX4. Vital signs stable tolerating room air. Pt wears 2L NC as needed while sleeping. IV abx infused per JUL. Pt has not had a BM today for a stool sample. ECHO ordered. Cardiology and pulmonology consulted. Pt NPO at midnight. FSBS treated with SSI per order. Pt resting comfortably in bed with no further needs voiced at this time. Call light within reach.
[2025-02-12 18:15] LABS: POC Glucose,Bedside 243 gm/dL (70-110)
--- NOTE | 2025-02-12 20:13 | EXP.EVENT.NO ---
Goals of care discussion. Patient and daughter (Iman Miguel) present. #Left upper lobe suspected lung malignancy #History of prostate, colon cancer #Current tobacco smoker Extensively discussed left upper lobe lesion findings with patient and daughter at bedside. Lesion is concerning for cancer, patient has a history of prostate cancer s/p total prostatectomy and colon cancer s/p resection. He follows with Dr. Phillips who recently noted that his PSA level is elevated, however I am unable to find his elevated PSA. PSA levels were normal in November 2024. Patient and daughter are tearful that left upper lobe lesion is concerning for cancer. At this time, patient is not interested in treatment. I advised Dr. Queen with pulmonology will be discussing in further detail tomorrow regarding left upper lobe lesion to which they are agreeable.
[2025-02-12] MEDS: PRAVASTATIN 40MG TAB 80 MG PO (20:18)
[2025-02-12] MEDS: MELATONIN 5MG TABLET 5 MG PO (20:18)
[2025-02-12] MEDS: LIPASE/PROTEASE/AMYLASE 1 EACH CAPSULE.DR PO (20:18)
[2025-02-12] MEDS: GABAPENTIN 300MG CAPSULE 300 MG PO (20:18)
[2025-02-12] MEDS: INSULIN GLARGINE 100 UNITS/ML 3ML FLEXPEN 25 UNIT SUBCUT (20:19)
[2025-02-12] MEDS: BUSPIRONE HCL 5 MG TABLET 7.5 MG PO (20:19)
[2025-02-12] MEDS: CARVEDILOL 25MG TABLET 25 MG PO (20:20)
[2025-02-12] MEDS: ARTIFICIAL TEARS SOLN 15ML BOTTLE OP (20:20)
[2025-02-12 20:25] LABS: POC Glucose,Bedside 239 gm/dL (70-110)
[2025-02-13] VITALS (12 sets, daily range): BP systolic 125–156; BP diastolic 61–88; PULSE 67–85; RESP 14–21; TEMP 36.4–36.7; O2SAT 93–97; BMI 23.1
[2025-02-13] MEDS: humaLOG 100 UNITS/ML 10ML VIAL (SSI) SUBCUT ×3 (01:07→21:30)
[2025-02-13] MEDS: PIPERACILLIN/TAZO 3.375 GM in 0.9 % SODIUM CHLORIDE 50 ML IV ×4 (01:08→21:23)
[2025-02-13 01:18] LABS: POC Glucose,Bedside 203 gm/dL (70-110)
--- NOTE | 2025-02-13 04:23 | PC.NURSE ---
Pt AOx4. Denies pain and additional needs throughout shift. VSS. No acute changes so far in the shift. NPO since 0000 for possible bronch and pulm consult. Currently resting in bed with eyes closed. Respirations even and unlabored. Bed is low, locked, and call light is in reach.
--- NOTE | 2025-02-13 06:00 | CA_ITS ---
APPROVED REPORT EXAM: Limited 2D Echocardiogram [employer] Professor: Aileen Diaz CRT Ht: 5 ft 8 in Wt: 149lbs BSA: 1.80 BP: 112/62 mmHg Indications: Chest Pain, LV Function check M-Mode Dimensions RVDd 1.81 cm (0.9-2.6) LA Diam 2.38 cm (1.9-4.0) LVDd 3.38 cm (3.5-5.7) LVDs 2.50 cm (3.5-5.7) IVSd 1.33 cm (0.6-1.1) PWd 1.33 cm (0.6-1.1) EF (Teich) 52.40% FS 26.00% EDV (Teich) 46.80 mL ESV (Teich) 22.30 mL Left Ventricle The left ventricle is normal size. Left ventricular systolic function is normal. The left ventricular ejection fraction is within the normal range. There is increased left ventricular wall thickness. There is normal LV segmental wall motion. The left ventricular diastolic function is indeterminate. LVEF is 60% Right Ventricle The right ventricle is milldy dilated. The right ventricular systolic function is normal. Atria The left atrium is mildly dilated. The right atrium is mildly dilated. There is no color Doppler evidence of interatrial shunt. Aortic Valve The aortic valve is mildly thickened. There is no hemodynamically significant aortic valvular stenosis. No aortic regurgitation is present. Mitral Valve The mitral valve is normal in structure. No evidence of mitral valve stenosis. Trace mitral regurgitation is present. Tricuspid Valve The tricuspid valve leaflets are thin and pliable. Trace tricuspid regurgitation. There is insufficient TR jet to estimate RVSP. Pulmonic Valve The pulmonary valve is not well visualized. Great Vessels The aortic root is not well visualized. IVC is normal in size and collapses >50% with inspiration. Pericardium There is no pericardial effusion. Other Information Study Quality: Technically Difficult Conclusion Technically difficult study. Normal biventricular systolic function. Mild RV dilation. Mild biatrial dilation. No significant valvular stenosis or regurgitation. Electronically signed by : Anila Beckman MD 02/13/2025 15:29:12
[2025-02-13 06:21] LABS: POC Glucose,Bedside 121 gm/dL (70-110)
[2025-02-13 06:23] LABS: Hematocrit 35.4 % (42.0-52.0); Hemoglobin 11.5 g/dL (14.1-18.0); Immature Granulocytes % 0.8 %; Mean Corpuscular HGB Conc 32.5 g/dL (31.8-35.4); Mean Corpuscular Hemoglobin 26.1 pg (27.0-31.2); Mean Corpuscular Volume 80.3 fl (80-94); Nucleated Red Blood Cells % 0 %; Platelet Count 371 K/mm3 (142-424); Red Blood Count 4.41 M/mm3 (4.60-6.20); Red Cell Distribution Width-SD 41.4 fL; White Blood Count 16.6 K/mm3 (4.8-10.8)
[2025-02-13 06:39] LABS: Alanine Aminotransferase 11 U/L (12-78); Albumin Level 3.5 g/dl (3.5-5.0); Albumin/Globulin Ratio 1.1 (1.1-1.8); Alkaline Phosphatase 129 U/L (38-126); Anion Gap 9.9 mEq/L (5-15); Aspartate Amino Transferase 20 U/L (17-59); Bilirubin,Total 0.4 mg/dl (0.2-1.3); Blood Urea Nitrogen 39 mg/dl (9-20); Calcium 8.8 mg/dl (8.4-10.2); Carbon Dioxide 25 mmol/L (22.0-30.0); Chloride 102 mmol/L (98-107); Cholesterol 76 mg/dl (140-200); Creatinine Clearance Estimated 33 mL/min (50-200); Creatinine,Serum 2.10 mg/dl (0.66-1.25); Estimated Glomerular Filt Rate 31 ml/min (>60); GFR (African American) 38 ML/MIN (>60); Globulin 3.1 g/dL (1.3-3.2); Glucose 117 mg/dl (74-100); HDL Cholesterol 29 mg/dl (40-60); Potassium 4.9 mmoL/L (3.5-5.1); Sodium 132 mmol/L (136-145); Total Protein,Serum 6.6 g/dl (6.3-8.2); Triglycerides 120 mg/dl (30-150)
[2025-02-13] MEDS: IPRATROPIUM/ALBUTEROL 3 ML NEB IH ×3 (06:39→18:42)
[2025-02-13] MEDS: FLUTICASONE/UMECLIDIN/VILANTER 200/62.5/25MCG INHALER 1 PUFF IH (06:40)
[2025-02-13 07:10] LABS: Thyroid Stimulating Hormone 1.10 uIU/mL (0.465-4.68)
--- NOTE | 2025-02-13 07:57 | SW/DCPLANNER ---
Addendum entered by Pat Godoy 02/14/25 11:00: I have updated [facility]/ [facility] that patient will return today ICF level of care. Addendum entered by Pat Godoy 02/14/25 07:56: Updated patient information faxed to [facility]/ [facility]. Original Note: Patient currently resides at [facility] ICF level of care. Updated patient information has been faxed to [facility]/ [facility]. Discharge date is unknown at this time. CM will continue to follow up.
[2025-02-13 08:02] LABS: C-Reactive Protein 40.2 mg/L (0-4)
[2025-02-13 08:15] LABS: Procalcitonin 0.146 ng/mL (0.0-2.0)
--- NOTE | 2025-02-13 09:31 | HMH.OTEV ---
OT Evaluation Rehab OT IP Evaluation Start: 02/12/25 02:04 Freq: ONCE Status: Active Protocol: Document 02/13/25 09:22 GRICELDA (Rec: 02/13/25 09:31 GRICELDA [id number]) Rehab OT IP Assessment Subjective History Per HPI: HPI narrative: 69-year-old male with history of COPD, mitral regurg, type 2 diabetes, hypertension presents to the ER from shelter with EMS. EMS reports they were called because shelter had drawn labs today after the patient reported not feeling well and noted a troponin over 6.0. Initially EMS had received report that patient did not have any chest pain but when they arrived on scene they were told he did have some chest pain, patient is primarily complaining of left lower back pain which she reports is not new. He has been having diarrhea. When explicitly asked about chest pain, he states it has been coming and going for the last week and feels like a weight sitting in the center of his chest. He denies difficulty breathing, he has chronic cough that he states is at baseline. He is a smoker. He denies dysuria or hematuria but states he makes very little urine and has difficulty urinating. He has no nausea or vomiting. Denies fevers or chills. Denies headache, numbness, tingling, or weakness. No other complaints or concerns at this time. EMS reports they gave the patient 500 mL normal saline during transportation. No other medications administered. Subjective I just get tired. Pt supine in bed when therapy entered room. Pt orient x3. Pt reported they live in LTC at [facility]. Pt report they are ind in FM with no use of AD. Pt reported ind in dressing and bathing. Pt reported they get tired easily. Pt reported no falls. Pt agreed to FM task. Pt went from supine in EOB Ind. Pt then completed STS ind and completed FM task fo aprox 10 ft with SBA. Pt then sat on EOB and collected breath with deep breathing. Pt then went to supine position. Pt left with call light and all other needs within reach. Objective Patient Orientation Person,Place,Name Right Upper WNL Extremity Gross ROM Left Upper Extremity WNL Gross ROM Bed Mobility bed mobility-scooting,bed mobility - supine/sit Assist Level Independent Transfer Training Sit/Stand Transfer Assist Level Independent Chair Transfer Sit to/from Ambulatory Technique Chair Transfer None Assistive Devices Decrease in Yes: this is baseline for pt Endurance Rehab OT IP prob,goals,plan Problems Date of Evaluation: 02/13/25 Rehab Potential Rehab Potential Innapropriate for Skilled Therapy Discharge Plan OT Discharge Plan At this time, pt is at baseline and would not benefit from skilled acute OT services while admitted here at [facility]. Once DC from [facility] and medically stable, pt good to DC back to LTC placement. Pt educated on use of AD equipment like walker to help with functional limitations in endurance. Eval Complexity Eval Charge Codes 11042 - Moderate Complexity PHYSICIAN CERTIFICATION: I certify the specified therapy services for Noah Rivero JR are required, authorized, and reviewed every 30 days.
--- NOTE | 2025-02-13 09:37 | HMH.PTEV ---
Physical Therapy Evaluation Rehab PT IP Evaluation Start: 02/12/25 02:04 Freq: ONCE Status: Active Protocol: Document 02/13/25 09:32 REMINGTON (Rec: 02/13/25 09:37 REMINGTON [id number]) Subjective/History History History Per H&P: Personally evaluated patient and agree with the plan of care as outlined by the LINE UP WORKER. Extensively discussed left upper lobe lesion findings with patient and daughter at bedside. Lesion is concerning for cancer, patient has a history of prostate cancer s/p total prostatectomy and colon cancer s/p resection. He follows with Dr. Phillips who recently noted that his PSA level is elevated, however I am unable to find his elevated PSA. PSA levels were normal in November 2024. Patient and daughter are tearful that left upper lobe lesion is concerning for cancer. At this time, patient is not interested in treatment. I advised Dr. Queen with pulmonology will be discussing in further detail tomorrow regarding left upper lobe lesion to which they are agreeable. N.p.o. at midnight for possible bronchoscopy in the morning. Continue Zosyn for pancolitis, no significant abdominal pain today. Follow-up stool PCR. Subjective Subjective Pt reports he lives in a alf and is IND with all mobility. Pt does not use a RW and denies falls in past month. New diagnosis of No cancer in past 12 months? [facility] How much help from another person do you currently need... Turning from your None back to your side while in a flat bed without using bedrails? Moving from lying on None back to sitting on the side of a flat bed without using bedrails? Moving to and from a None bed to a chair ( including a wheelchair)? Standing up from a None chair using your arms? (e.g., wheelchair, bedside chair) Walking in hospital None room? Climbing 3-5 steps A little with a railing? Mobility Score 23 Mobility Level [facility] Mobility 7 Walk 25 feet or more Mobility Calculator Rehab PT IP Eval Objective Appearance Patient Behavior Appropriate,Cooperative Patient Orientation Person,Situation Difficulty following none instructions Speech Pattern Clear Ambulation Patient Able to Yes Ambulate Ambulation Observation IP General Gait Narrow Based Gait Pattern Observation Ambulation Distance 20 (feet) Ambulation Assistive None Device Ambulation Ability Supervision/Stand by Balance Ability to Arise Able, uses arms to help Sitting Balance Steady, safe Standing Balance Steady, wide stance Dynamic Sitting Good Balance Ability Dynamic Standing Good Balance Ability Transfers Bed Transfer Ability Independent Sit to Stand Bed Independent Transfer Ability Rehab PT IP prob,goals,plan Problems Date of Evaluation: 02/13/25 Rehab Potential Rehab Potential Innapropriate for Skilled Therapy Discharge Plan PT Discharge Plan Pt not appropriate for skilled acute care PT as he is IND with household level ambulation. Pt most appropriate to d/c home when medically necessary. PT educated pt to use RW to improve safety when ambulating community distances. Eval Complexity Eval Charge Codes 55268 - Moderate Complexity PHYSICIAN CERTIFICATION: I certify the specified therapy services for Noah Rivero JR are required, authorized, and reviewed every 30 days.
[2025-02-13] MEDS: ARTIFICIAL TEARS SOLN 15ML BOTTLE OP ×2 (09:46→12:14)
[2025-02-13] MEDS: ASPIRIN EC 81MG TABLET 81 MG PO (09:47)
[2025-02-13] MEDS: DAPAGLIFLOZIN PROPANEDIOL 10 MG TABLET PO (09:47)
[2025-02-13] MEDS: LIPASE/PROTEASE/AMYLASE 1 EACH CAPSULE.DR PO ×3 (09:47→21:29)
[2025-02-13] MEDS: BUSPIRONE HCL 5 MG TABLET 7.5 MG PO ×2 (09:47→21:30)
[2025-02-13] MEDS: PANTOPRAZOLE 40MG TABLET 40 MG PO (09:47)
[2025-02-13] MEDS: guaiFENesin 600 MG TAB.ER.12H PO ×2 (09:47→21:29)
[2025-02-13] MEDS: dilTIAZem ER 120MG CAPSULE 120 MG PO (09:47)
[2025-02-13] MEDS: CARVEDILOL 25MG TABLET 25 MG PO ×2 (09:47→21:29)
[2025-02-13] MEDS: GABAPENTIN 300MG CAPSULE 300 MG PO ×2 (09:50→21:28)
[2025-02-13 10:07] LABS: Hemoglobin A1C 6.8 % (4.0-6.0)
--- NOTE | 2025-02-13 10:46 | EXP.CARD.CON ---
History of Present Illness History of Present Illness Consult date: 02/13/25 Requesting physician: Forrest Dominguez Consult reason: chest pain Chief complaint: chest pain, elevated troponin Additional Medical History:: 1. History of colon cancer status post resection 2. History of prostate cancer status post total prostatectomy 3. History of tobacco use from at least 1 pack/day for 50 years -COPD/pulmonary emphysema 4. Diabetes mellitus type 2, treated for greater than 10 years 5. Coronary artery calcifications noted on chest CT 6. History of right upper lobe nodule followed by pulmonary with history of sputum cultures positive for Klebsiella and Pseudomonas sensitive to levofloxacin. - Now with new left upper lobe mass extending into anterior mediastinum, abutting thoracic aorta with at least partially segmental/subsegmental pulmonary vessels, local regional infiltrative lymphangitic carcinomatosis and hilar lymphadenopathy 7. Chronic pancreatitis noted on chest CTA 02/11/2025 History of present illness: 69-year-old half-way resident brought to the emergency department for reported elevated troponin of 6.9. Troponin actually was 0.069 but patient does complain of chest pain in addition to worsening cough and congestion. Emergency department workup revealed elevated troponin at 0.05 and EKG without ischemic changes. BNP noted to be 649. CT of the chest abdomen pelvis noted for left upper lobe mass extending into the anterior mediastinum abutting the thoracic aorta concerning for lymphangitic carcinomatosis. Also noted to have pancolitis on CT concerning for possible C. difficile infection. Subsequently admitted for further evaluation. Cardiology consulted for elevated troponin with concern for non-STEMI. In light of the new left upper lobe mass, we will obtain an echocardiogram to evaluate left ventricular ejection fraction before deciding on further testing. [facility] Disclaimer: The information contained in this section may have been updated after the patient was seen, as this information can be updated by other users. Medical History (Updated 02/13/25 @ 11:08 by THERESA Hammer) Encounter for special screening examination for neoplasm of respiratory organ Mitral regurgitation SOB (shortness of breath) T12 compression fracture Oaijm-ea-pyshhgi kidney injury GERD (gastroesophageal reflux disease) Adult failure to thrive Fall Acute pain of left hip Acute hyperkalemia [place] (acute kidney injury) Altered mental status Prostate cancer COPD mixed type Neuropathy Frequent falls Abnormal computerized axial tomography of chest Tobacco abuse Smoking greater than 30 pack years Dyspnea on exertion Pulmonary emphysema Cavitary lesion of lung Lung abscess COVID COVID CKD (chronic kidney disease) Chronic pancreatitis due to chronic alcoholism Hyponatremia Pneumonia COPD (chronic obstructive pulmonary disease) Asthma Alcohol abuse Anxiety Depression Arthritis Irritable bowel syndrome (IBS) History of gastroesophageal reflux (GERD) Diabetes mellitus, type 2 Hypertension Hyperlipidemia Colon cancer Pneumonia Hypomagnesemia Hyponatremia Chronic pancreatitis Protein-calorie malnutrition, moderate Acute alcoholic pancreatitis Alcohol withdrawal Illiteracy Transaminitis Type 2 diabetes mellitus Macrocytic anemia Protein-calorie malnutrition, mild Acute renal failure Chronic alcohol abuse [place] (acute kidney injury) Polysubstance abuse Acute pancreatitis Alcoholic pancreatitis Alcoholism HTN (hypertension) COPD (chronic obstructive pulmonary disease) Hx of malignant neoplasm of colon Tobacco use disorder Surgical History History of cataract surgery S/P TURP History of colon resection History of colonoscopy Hx of prostatectomy Family History Mother Family history of diabetes mellitus type II Social History Smoking Status: Current every day smoker tobacco type: cigarettes packs per day: 1 years smoked: 54 quit status: has quit before second hand exposure: Yes alcohol intake: former counseling provided: provider counseling substance use type: marijuana current occupational status: disabled Travel in the last 8 weeks?: None household members: none housing: apartment lives independently: Yes (home health comes twice a week ) marital status: current occupational exposures/hazards: No caffeine: Yes (coffee) physical activity: none do you feel safe at home: Yes Have you lived/traveled outside [place] in past 30 days?: No Contact w/someone who lives/traveled outside [place] past 30 days?: No Exposure to someone with infectious disease in past 14 days?: No Do you have a fever (greater than 100.4 F or 38 C)?: No Have you tested positive for COVID-19?: No Exposed to someone with COVID-19 in past 14 days?: No Do you have a sore throat?: No Do you have a cough?: No Do you have any weakness?: No Do you have any diarrhea?: No Are you experiencing any unusual bleeding?: No Do you have any muscle aches/pain?: No Do you have any abdominal pain?: No Are you experiencing loss of taste or smell?: No Review of Systems Review of Systems Review of systems:: pertinent systems reviewed and negative unless documented below *Cardiovascular Cardiovascular: Reports chest pain and Reports dyspnea *Respiratory Respiratory: Reports chest congestion and Reports dyspnea Exam Data for Last 24 hours Vital signs and Labs for Last 24 Hours: Temp Pulse Resp BP Pulse Ox O2 Del Method O2 Flow Rate 97.8 F 71 14 141/77 H 95 Room Air 2 02/13/25 07:45 02/13/25 08:00 02/13/25 07:45 02/13/25 07:45 02/13/25 07:45 02/13/25 09:00 02/13/25 06:41 FiO2 28 02/12/25 19:12 Laboratory Results - last 24 hr 02/12/25 12:18: POC Glucose 183 H 02/12/25 18:09: POC Glucose 243 H 02/12/25 20:15: POC Glucose 239 H 02/13/25 01:04: POC Glucose 203 H 02/13/25 05:27: WBC 16.6 H D, RBC 4.41 L, Hgb 11.5 L, Hct 35.4 L, MCV 80.3, MCH 26.1 L, MCHC 32.5, RDW 14.2, Plt Count 371, MPV 9.5, Neut % (Auto) 84.0 H, Lymph % (Auto) 8.6 L, [place] % (Auto) 6.3, Eos % (Auto) 0.2, Baso % (Auto) 0.1, Neut # (Auto) 14.0 H, Lymph # (Auto) 1.4, [place] # (Auto) 1.0, Eos # (Auto) 0.0, Baso # (Auto) 0.0, Sodium 132 L, Potassium 4.9, Chloride 102, Carbon Dioxide 25, Anion Gap 9.9, BUN 39 H, Creatinine 2.10 H, Estimated Creat Clear 33, Estimated GFR 31 L, Est GFR ( Amer) 38 L, Glucose 117 H, Hemoglobin A1c 6.8 H, Calcium 8.8, Total Bilirubin 0.4, AST 20, ALT 11 L, Alkaline Phosphatase 129 H, C-Reactive Protein 40.2 H, Total Protein 6.6, Albumin 3.5, Globulin 3.1, Albumin/Globulin Ratio 1.1, Triglycerides 120, Cholesterol 76 L, LDL Cholesterol Direct < 30.00 L, VLDL Cholesterol 24, HDL Cholesterol 29 L, Cholesterol/HDL Ratio 2.6, Procalcitonin 0.146, TSH 1.10 02/13/25 06:01: POC Glucose 121 H I & O for Last 24 hours: Intake & Output 02/10/25 02/11/25 02/12/25 02/13/25 11:59 11:59 11:59 11:59 Intake Total 870 / 870 1120 / 1120 Output Total 800 / 800 1400 / 1400 Balance 70 / 70 -280 / -280 Weight 149 lb 4.047 oz 152 lb 14.4 oz Microbiology Reports for the Last 24 Hours: Microbiology 02/12/25 12:10 Sputum - Expectorated Sputum Gram Stain - Final Constitutional Constitutional: no acute distress *Routine Respiratory Exam Respiratory: Present decreased breath sounds; Absent rhonchi or wheezes *Routine Cardiovascular Exam Cardiovascular: Present RRR; Absent murmur, gallop or rubs *Routine Extremities Exam Extremities: Absent edema *Routine Neurological Exam Neurological: Present alert, oriented X3 and CN II-XII intact Meds Home Medications and Allergies Home Medications ?Medication ?Instructions ?Recorded ?Confirmed ?Type fluticasone fur. 200 mcg-umeclid 1 inh inhalation DAILY 05/06/23 02/12/25 History 62.5 mcg-vilant 25 mcg inhalat.powder (Trelegy Ellipta) lyanyk-kmunsavj-qwoewrj 1 cap PO TID 05/06/23 02/12/25 History 10,000-32,000-42,000 unit capsule,delayed rel (Zenpep) simvastatin 40 mg tablet 40 mg PO HS 05/06/23 02/12/25 History acetaminophen 500 mg tablet 500 mg PO Q4HP PRN pain/fever 07/22/23 02/12/25 History gabapentin 300 mg capsule 300 mg PO BID 30 days #60 caps 03/28/24 02/12/25 Rx carvedilol 25 mg tablet 25 mg PO BID 30 days #60 tabs 04/10/24 02/12/25 Rx dapagliflozin propanediol 10 mg 10 mg PO DAILY #30 tabs 04/19/24 02/12/25 Rx tablet (Farxiga) diltiazem HCl 120 mg 120 mg PO HS 11/17/24 02/12/25 History tablet,extended release 24 hr duloxetine 60 mg capsule,delayed 60 mg PO DAILY 11/17/24 02/12/25 History release losartan 100 1 tab PO DAILY #30 tabs 11/17/24 02/12/25 Rx mg-hydrochlorothiazide 25 mg tablet pantoprazole 40 mg tablet,delayed 40 mg PO DAILY 01/17/25 02/12/25 History release oxybutynin chloride 10 mg 10 mg PO DAILY 30 days #30 tabs 01/23/25 02/12/25 Rx tablet,extended release 24 hr dextromethorphan-guaifenesin 20 20 ml PO Q12HP PRN Cough 02/03/25 02/12/25 History mg-200 mg/15 mL oral liquid melatonin 3 mg capsule 9 mg PO HS PRN Sleep 02/03/25 02/12/25 History propylene glycol 0.6 % eye drops 1 drp Eye-Both TID 02/03/25 02/12/25 History (Systane Balance) albuterol sulfate 90 mcg/actuation 2 inh inhalation Q4RT 02/12/25 02/12/25 History aerosol inhaler (Ventolin HFA) buspirone 7.5 mg tablet 7.5 mg PO BID 02/12/25 02/12/25 History prednisone 20 mg tablet 40 mg PO DAILY 02/12/25 02/12/25 History New Prescriptions to Start Prescriptions: Allergies Allergy/AdvReac Type Severity Reaction Status Date / Time No Known Allergies Allergy Verified 02/03/25 11:05 Assessment and Plan *Assessment and plan (1) Abnormal CT of the chest: Status: Acute Category: Medical Code(s): R93.89 - Abnormal findings on diagnostic imaging of other specified body structures (2) NSTEMI (non-ST elevated myocardial infarction): Status: Acute Category: Medical Code(s): I21.4 - Non-ST elevation (NSTEMI) myocardial infarction (3) COPD (chronic obstructive pulmonary disease): Status: Chronic Qualifiers: COPD type: unspecified COPD Qualified Code(s): J44.9 - Chronic obstructive pulmonary disease, unspecified Category: Medical Code(s): J44.9 - Chronic obstructive pulmonary disease, unspecified (4) HTN (hypertension): Status: Chronic Qualifiers: Hypertension type: essential hypertension Qualified Code(s): I10 - Essential (primary) hypertension Category: Medical Code(s): I10 - Essential (primary) hypertension (5) Type 2 diabetes mellitus: Status: Chronic Qualifiers: Diabetes mellitus complication detail: with polyneuropathy Diabetes mellitus complication status: with neurologic complications Diabetes mellitus long-term insulin use: without long-term use Qualified Code(s): E11.42 - Type 2 diabetes mellitus with diabetic polyneuropathy Category: Medical Code(s): E11.9 - Type 2 diabetes mellitus without complications (6) Tobacco abuse: Status: Chronic Category: Medical Code(s): Z72.0 - Tobacco use (7) CKD stage 3b, GFR 30-44 ml/min: Status: Acute Category: Medical Code(s): N18.32 - Chronic kidney disease, stage 3b Plan 1. Left upper lobe mass extending into the mediastinum abutting the thoracic aorta -Concern for cancer -Await pulmonary evaluation -BNP 649 2. Elevated troponin with concern for non-STEMI -Coronary calcifications noted on CT of the chest -Echo pending -Proceed with Lexiscan Myoview if patient willing -Continue aspirin 81 mg -CRP 40.2 3. Tobacco use with COPD -Cessation recommended 4. Hypertension -Continue current medications including diltiazem, carvedilol -Holding losartan/HCTZ due to CKD 5. Type 2 diabetes mellitus -Management per hospitalist -On -Hemoglobin A1c 6.8 6. Chronic kidney disease, stage III -Baseline creatinine about 1.9-2.1 with GFR 31-35 7. Hyponatremia at 132 Echocardiogram today shows normal EF and normal wall motion. Recommend Bobby myoview in AM. Pt agrees.
[2025-02-13 12:05] LABS: POC Glucose,Bedside 215 gm/dL (70-110)
--- NOTE | 2025-02-13 14:40 | EXP.PN ---
Subjective *Date: 02/13/25 *Time: 14:40 Interval history: Patient is in better spirits today, sitting comfortably in bed eating breakfast. No chest pain, shortness of breath. N.p.o. at midnight for Myoview scan in the morning, pulmonology evaluation for lung mass. Exam Data for Last 24 hours Vital signs and Labs for Last 24 Hours: Temp Pulse Resp BP Pulse Ox O2 Del Method O2 Flow Rate 97.7 F 72 16 145/86 H 94 L Room Air 2 02/13/25 11:58 02/13/25 12:00 02/13/25 11:58 02/13/25 11:58 02/13/25 11:58 02/13/25 11:58 02/13/25 06:41 FiO2 28 02/12/25 19:12 Laboratory Results - last 24 hr 02/12/25 18:09: POC Glucose 243 H 02/12/25 20:15: POC Glucose 239 H 02/13/25 01:04: POC Glucose 203 H 02/13/25 05:27: WBC 16.6 H D, RBC 4.41 L, Hgb 11.5 L, Hct 35.4 L, MCV 80.3, MCH 26.1 L, MCHC 32.5, RDW 14.2, Plt Count 371, MPV 9.5, Neut % (Auto) 84.0 H, Lymph % (Auto) 8.6 L, Jack % (Auto) 6.3, Eos % (Auto) 0.2, Baso % (Auto) 0.1, Neut # (Auto) 14.0 H, Lymph # (Auto) 1.4, Jack # (Auto) 1.0, Eos # (Auto) 0.0, Baso # (Auto) 0.0, Sodium 132 L, Potassium 4.9, Chloride 102, Carbon Dioxide 25, Anion Gap 9.9, BUN 39 H, Creatinine 2.10 H, Estimated Creat Clear 33, Estimated GFR 31 L, Est GFR ( Amer) 38 L, Glucose 117 H, Hemoglobin A1c 6.8 H, Calcium 8.8, Total Bilirubin 0.4, AST 20, ALT 11 L, Alkaline Phosphatase 129 H, C-Reactive Protein 40.2 H, Total Protein 6.6, Albumin 3.5, Globulin 3.1, Albumin/Globulin Ratio 1.1, Triglycerides 120, Cholesterol 76 L, LDL Cholesterol Direct < 30.00 L, VLDL Cholesterol 24, HDL Cholesterol 29 L, Cholesterol/HDL Ratio 2.6, Procalcitonin 0.146, TSH 1.10 02/13/25 06:01: POC Glucose 121 H 02/13/25 11:59: POC Glucose 215 H I & O for Last 24 hours: Intake & Output 02/10/25 02/11/25 02/12/25 02/13/25 23:59 23:59 23:59 23:59 Intake Total 1650 / 1890 940 / 940 Output Total 1775 / 1775 425 / 425 Balance -125 / 115 515 / 515 Weight 70.307 kg 67.7 kg 69.354 kg Microbiology Reports for the Last 24 Hours: Microbiology 02/12/25 12:10 Sputum - Expectorated Sputum Gram Stain - Final Constitutional Constitutional: no acute distress and chronically ill appearing *Routine HEENT Exam Head: Present normocephalic Eye: Present EOMI and PERRL ENT: Present mucous membranes moist *Routine Neck Exam Neck: Present supple; Absent lymphadenopathy *Routine Respiratory Exam Respiratory: Present wheezes; Absent CTA bilaterally *Routine Cardiovascular Exam Cardiovascular: Present RRR *Routine Abdominal Exam Abdominal: Present soft and normoactive bowel sounds; Absent tenderness *Routine Extremities Exam Extremities: Absent cyanosis, clubbing or edema *Routine Skin Exam Skin: Present warm; Absent rash *Routine Neurological Exam Neurological: Present alert and oriented X3 Assessment and Plan *Assessment and plan (1) Abnormal CT of the chest: Status: Acute Category: Medical Code(s): R93.89 - Abnormal findings on diagnostic imaging of other specified body structures (2) NSTEMI (non-ST elevated myocardial infarction): Status: Acute Category: Medical Code(s): I21.4 - Non-ST elevation (NSTEMI) myocardial infarction (3) CKD (chronic kidney disease), stage IV: Status: Acute Category: Medical Code(s): N18.4 - Chronic kidney disease, stage 4 (severe) (4) Diabetes mellitus with diabetic neuropathy: Status: Acute Qualifiers: Diabetes mellitus type: type 2 Diabetes mellitus acting professor insulin use: with acting professor use Qualified Code(s): E11.40 - Type 2 diabetes mellitus with diabetic neuropathy, unspecified; Z79.4 - intermediate (current) use of insulin Category: Medical Code(s): E11.40 - Type 2 diabetes mellitus with diabetic neuropathy, unspecified (5) Type 2 diabetes mellitus: Status: Chronic Qualifiers: Diabetes mellitus acting professor insulin use: without fci use Diabetes mellitus complication status: with neurologic complications Diabetes mellitus complication detail: with polyneuropathy Qualified Code(s): E11.42 - Type 2 diabetes mellitus with diabetic polyneuropathy Category: Medical Code(s): E11.9 - Type 2 diabetes mellitus without complications (6) HTN (hypertension): Status: Chronic Qualifiers: Hypertension type: essential hypertension Qualified Code(s): I10 - Essential (primary) hypertension Category: Medical Code(s): I10 - Essential (primary) hypertension Plan Noah Rivero is a 69-year-old male with a medical history significant for chronic tobacco use, COPD on room air who presented with chest pain, shortness of breath and was admitted for NSTEMI, and a left upper lobe lung lesion highly suspicious for malignancy. #Left upper lobe mass #Suspected malignancy ? Presented with shortness of breath, chest pain. Troponins peaked at 0.05. See separate form. ? CTA chest 02/11/2025 revealed poorly defined, left upper lobar mass extending into anterior mediastinum, abutting ascending and transverse aortic segments with least partial encasement of left upper lobar segmental and subsegmental pulmonary arterial and venous vessels, measuring at least 5.2 x 10.5 x 9.4 cm. Extensive locoregional peribronchovascular thickening. ? Highly suspicious for malignancy. Has a history of prostate cancer s/p total prostatectomy, colon cancer s/p resection. Patient has a multi pack-year smoker. ? Extensively discussed left upper lobe lesion findings with patient and daughter at bedside. Lesion is concerning for cancer, patient has a history of prostate cancer s/p total prostatectomy and colon cancer s/p resection. He follows with Dr. Phillips who recently noted that his PSA level is elevated, however I am unable to find his elevated PSA. PSA levels were normal in November 2024. Patient and daughter are tearful that left upper lobe lesion is concerning for cancer. I advised Dr. Queen with pulmonology will be discussing in further detail tomorrow regarding left upper lobe lesion to which they are agreeable. ? Initially, patient stated he was not interested in workup and treatment. Today, patient is amenable to workup and treatment. ? N.p.o. at midnight for possible bronchoscopy in the morning. Patient was already started on aspirin, may need washout. Holding for now. Hold morning DVT prophylaxis. ? Will withhold steroids at this time as patient is not having significant symptoms. #NSTEMI #Hypertension ? Troponins peaked at 0.05, EKG without acute ischemic changes. ? ECHO pending report, but preliminary report did not show wall motion abnormalities. ? Cardiology consulted, planning for Lexiscan Myoview tomorrow and if abnormal possible LHC. N.p.o. at midnight. ? Continue Coreg 25 mg twice daily, aspirin 81 mg (holding for possible bronchoscopy), atorvastatin 40 mg. #Pancolitis ? Seen on CT abdomen/pelvis 02/12/2025. WBC bumped to 16.6 today, suspect steroid effect. No signs of sepsis. ? Continue Zosyn 3.375 g every 6 hours for pancolitis, no significant abdominal pain. #History of prostate cancer s/p prostatectomy #Overactive bladder ? Continue home oxybutynin 5 mg twice daily. ? Continue regular follow-ups Dr. Phillips. #COPD #Chronic tobacco use ? Continue home Trelegy 100. Continue DuoNebs every 6 hours. Will discontinue steroids as patient is much more stable. ? Advised tobacco cessation. Nicotine patch daily. #Chronic pancreatitis ? Continue home Creon. Stable. #Type 2 diabetes #Peripheral neuropathy ? Hemoglobin A1c 6.8%. Continue home Lantus 25 units twice daily, Farxiga 10 mg. ? Continue home gabapentin 300 mg twice daily. #GERD ? Continue home PPI. #Anxiety/depression ? Continue home duloxetine 60 mg, BuSpar 7.5 mg twice daily. #CKD stage IIIb ? Creatinine 2.1, GFR 31. Stable. Full code DVT prophylaxis: SCDs
[2025-02-13 16:51] LABS: POC Glucose,Bedside 146 gm/dL (70-110)
[2025-02-13] MEDS: INSULIN GLARGINE 100 UNITS/ML 3ML FLEXPEN 25 UNIT SUBCUT (21:28)
[2025-02-13] MEDS: PRAVASTATIN 40MG TAB 80 MG PO (21:29)
[2025-02-13] MEDS: MELATONIN 5MG TABLET 5 MG PO (21:29)
[2025-02-13 21:37] LABS: POC Glucose,Bedside 175 gm/dL (70-110)
[2025-02-14] VITALS (8 sets, daily range): BP systolic 131–158; BP diastolic 68–84; PULSE 65–82; RESP 14–20; TEMP 36.6–36.8; O2SAT 94–100; BMI 23.3
--- NOTE | 2025-02-14 | CA_ITS ---
APPROVED REPORT Exam: [employer] Technologist: Maria Isabel Menjivar Stress Nurse: Kandy Kothari Ht: 5 ft 8 in Wt: 152 lbs BSA: 1.82 m2 HR: 67 bpm BP: 139/76 mmHg Stress Test Details Test: Lexiscan HR Resting HR: 67 bpm Max Heart Rate (APMHR): 151.940695 bpm Max HR Achieved: 96 bpm Target HR (85% APMHR): 128.039291 bpm % of APMHR: 63.58 Recovery HR: 89 bpm BP Resting BP: 139.0/76.0 mmHg Max BP: 139.0/76.0 mmHg Recovery BP: 138.0/69.0 mmHg ECG Resting ECG: Sinus rhythm, fist degree AV block Stress ECG Conclusion Lungs diminished prior to start. Symptoms: None Arrhythmias/Ectopy: PAC ST-T Changes: Less than 0.[address] segment changes. Conclusion: Nondiagnostic ECG/Lexiscan. Electronically signed by : Anila Beckman MD 02/14/2025 11:49:53
[2025-02-14] MEDS: IPRATROPIUM/ALBUTEROL 3 ML NEB IH ×3 (00:22→12:58)
[2025-02-14] MEDS: PIPERACILLIN/TAZO 3.375 GM in 0.9 % SODIUM CHLORIDE 50 ML IV ×2 (02:00→10:42)
[2025-02-14 05:41] LABS: Hematocrit 37.4 % (42.0-52.0); Hemoglobin 12.0 g/dL (14.1-18.0); Immature Granulocytes % 0.8 %; Mean Corpuscular HGB Conc 32.1 g/dL (31.8-35.4); Mean Corpuscular Hemoglobin 25.8 pg (27.0-31.2); Mean Corpuscular Volume 80.4 fl (80-94); Nucleated Red Blood Cells % 0 %; Platelet Count 353 K/mm3 (142-424); Red Blood Count 4.65 M/mm3 (4.60-6.20); Red Cell Distribution Width-SD 41.9 fL; White Blood Count 13.2 K/mm3 (4.8-10.8)
[2025-02-14 05:53] LABS: Alanine Aminotransferase 11 U/L (12-78); Albumin Level 3.5 g/dl (3.5-5.0); Albumin/Globulin Ratio 1.2 (1.1-1.8); Alkaline Phosphatase 116 U/L (38-126); Anion Gap 11.9 mEq/L (5-15); Aspartate Amino Transferase 19 U/L (17-59); Bilirubin,Total 0.4 mg/dl (0.2-1.3); Blood Urea Nitrogen 40 mg/dl (9-20); Calcium 8.7 mg/dl (8.4-10.2); Carbon Dioxide 24 mmol/L (22.0-30.0); Chloride 102 mmol/L (98-107); Creatinine Clearance Estimated 35 mL/min (50-200); Creatinine,Serum 2.00 mg/dl (0.66-1.25); Estimated Glomerular Filt Rate 33 ml/min (>60); GFR (African American) 40 ML/MIN (>60); Globulin 3.0 g/dL (1.3-3.2); Glucose 120 mg/dl (74-100); Potassium 4.9 mmoL/L (3.5-5.1); Sodium 133 mmol/L (136-145); Total Protein,Serum 6.5 g/dl (6.3-8.2)
[2025-02-14 05:58] LABS: POC Glucose,Bedside 134 gm/dL (70-110)
[2025-02-14] MEDS: FLUTICASONE/UMECLIDIN/VILANTER 200/62.5/25MCG INHALER 1 PUFF IH (06:13)
[2025-02-14 07:24] LABS: C-Reactive Protein 22.2 mg/L (0-4)
[2025-02-14] MEDS: SODIUM CHLORIDE 0.9% 10ML SYR (RAD ONLY) 10 ML IV ×2 (07:45→09:15)
[2025-02-14] MEDS: ISOTOPE MYOVIEW (PER STUDY) 1 DOSE IV (09:32)
--- NOTE | 2025-02-14 10:00 | NM_ITS ---
APPROVED REPORT Exam: Nuclear Stress Test Indication: htn, diabetes, hyperlipidemia, tob use, sob Patient Location: Outpatient Stress Tech: Maria Isabel Menjivar NM Tech:JOAQUIM Farrar RT (R)(N)(M) Ht: 5 ft 8 in Wt: 152 lbs HR: 68 bpm BP: 139/76 mmHg BSA: 1.82 m2 TID: 0.97 BMI: 23.1 History: htn, diabetes, hyperlipidemia, tob use, sob pt could not lay on stomach for prone images. Procedure: Patient received 0.4 mg of intravenous Lexiscan, resting heart rate 68 bpm, resting blood pressure 139/76 mmHg, with Lexiscan maximum heart rate achieved was 98 bpm which is % of the maximum predicted heart rate and blood pressure was 121/67 mmHg. With Lexiscan, patient denied any complaint of chest pain. Cardiac Stress and Resting SPECT Images: Cardiac Stress and Resting SPECT images were obtained using technetium 99m Myoview 30.1 mCi stress and 10.51 mCi at rest. The patient cannot lie on his abdomen. Therefore, prone stress imaging cannot be performed. This may affect diagnostic interpretation of the study findings. Resting and stress imaging in supine positions demonstrated a small sized, moderate, fixed perfusion defect in the distal inferior LV wall. This is possibly due to artifact, however true fixed perfusion defect cannot be entirely ruled out. No evidence of reversible ischemia. Gated imaging demonstrates normal global and regional LV systolic function. LVEF is calculated at 61%. Conclusion: Small sized, moderate, fixed perfusion defect in the distal inferior LV wall. This is possibly due to artifact, however true fixed perfusion defect cannot be entirely ruled out. No evidence of reversible ischemia. Gated imaging demonstrates normal global and regional LV systolic function. LVEF is calculated at 61%. Electronically signed by : Anila Beckman MD 02/14/2025 11:15:09
--- NOTE | 2025-02-14 10:12 | EXP.PULM.CON ---
History of Present Illness History of present illness: Mr. Rivero is a 69-year-old female greater than [id number] smoking history COPD cavitary lung lesions, prostate cancer status post total prostatectomy, colon cancer status post recently reestablish care with pulmonary clinic presented with worsening respiratory distress and pulmonary was called for further evaluation and management [facility] Disclaimer: The information contained in this section may have been updated after the patient was seen, as this information can be updated by other users. Medical History (Updated 02/14/25 @ 12:27 by Latha Queen MD) Hilar lymphadenopathy Lung mass Encounter for special screening examination for neoplasm of respiratory organ Mitral regurgitation SOB (shortness of breath) T12 compression fracture [place]-bi-xphvtdj kidney injury GERD (gastroesophageal reflux disease) Adult failure to thrive Fall Acute pain of left hip Acute hyperkalemia [place] (acute kidney injury) Altered mental status Prostate cancer COPD mixed type Neuropathy Frequent falls Abnormal computerized axial tomography of chest Tobacco abuse Smoking greater than 30 pack years Dyspnea on exertion Pulmonary emphysema Cavitary lesion of lung Lung abscess COVID COVID CKD (chronic kidney disease) Chronic pancreatitis due to chronic alcoholism Hyponatremia Pneumonia COPD (chronic obstructive pulmonary disease) Asthma Alcohol abuse Anxiety Depression Arthritis Irritable bowel syndrome (IBS) History of gastroesophageal reflux (GERD) Diabetes mellitus, type 2 Hypertension Hyperlipidemia Colon cancer Pneumonia Hypomagnesemia Hyponatremia Chronic pancreatitis Protein-calorie malnutrition, moderate Acute alcoholic pancreatitis Alcohol withdrawal Illiteracy Transaminitis Type 2 diabetes mellitus Macrocytic anemia Protein-calorie malnutrition, mild Acute renal failure Chronic alcohol abuse [place] (acute kidney injury) Polysubstance abuse Acute pancreatitis Alcoholic pancreatitis Alcoholism HTN (hypertension) COPD (chronic obstructive pulmonary disease) Hx of malignant neoplasm of colon Tobacco use disorder Surgical History History of cataract surgery S/P TURP History of colon resection History of colonoscopy Hx of prostatectomy Family History Mother Family history of diabetes mellitus type II Social History Smoking Status: Current every day smoker tobacco type: cigarettes packs per day: 1 years smoked: 54 quit status: has quit before second hand exposure: Yes alcohol intake: former counseling provided: provider counseling substance use type: marijuana current occupational status: disabled Travel in the last 8 weeks?: None household members: none housing: apartment lives independently: Yes (home health comes twice a week ) marital status: current occupational exposures/hazards: No caffeine: Yes (coffee) physical activity: none do you feel safe at home: Yes Have you lived/traveled outside [place] in past 30 days?: No Contact w/someone who lives/traveled outside [place] past 30 days?: No Exposure to someone with infectious disease in past 14 days?: No Do you have a fever (greater than 100.4 F or 38 C)?: No Have you tested positive for COVID-19?: No Exposed to someone with COVID-19 in past 14 days?: No Do you have a sore throat?: No Do you have a cough?: No Do you have any weakness?: No Do you have any diarrhea?: No Are you experiencing any unusual bleeding?: No Do you have any muscle aches/pain?: No Do you have any abdominal pain?: No Are you experiencing loss of taste or smell?: No Review of Systems Constitutional Constitutional: Reports anorexia, Reports body ache(s), Reports fatigue and Reports lethargy Eyes Eyes: Denies eye discharge, Denies dry eyes, Denies irritation and Denies itchy eyes ENT Ears, Nose, Mouth, and Throat: Denies epistaxis, Denies facial pain, Denies lip swelling and Denies throat swelling *Cardiovascular Cardiovascular: Reports dyspnea and Reports dyspnea on exertion *Respiratory Respiratory: Denies change in phlegm color, Reports chest congestion, Reports cough, Reports dyspnea, Reports dyspnea on exertion, Reports excessive phlegm production, Denies hemoptysis, Denies pain on inspiration, Denies pain with cough and Reports wheezing *Gastrointestinal Gastrointestinal: Denies abdominal pain, Denies belching and Denies cramping *Musculoskeletal Musculoskeletal: Reports back pain, Reports myalgias and Reports other (No small joint swelling or Pain) Psychiatric Psychiatric: Denies homicidal ideation and Denies suicidal ideation Endocrine Endocrine: Reports fatigue and Denies heat intolerance Hematologic/Lymphatic Hematologic/Lymphatic: Denies easy bleeding and Denies lymphadenopathy Allergic/Immunologic Allergic/Immunologic: Denies itchy eyes, Denies lip swelling, Denies throat swelling and Reports wheezing Pulmonology Exam Inpatient Vital signs and Labs for Last 24 Hours: Temp Pulse Resp BP Pulse Ox O2 Del Method O2 Flow Rate 98.2 F 67 16 139/76 96 Room Air 2 02/14/25 04:00 02/14/25 09:00 02/14/25 09:00 02/14/25 09:00 02/14/25 06:13 02/14/25 06:13 02/14/25 05:00 FiO2 28 02/12/25 19:12 Laboratory Results - last 24 hr 02/13/25 11:59: POC Glucose 215 H 02/13/25 16:31: POC Glucose 146 H 02/13/25 21:06: POC Glucose 175 H 02/14/25 05:02: WBC 13.2 H, RBC 4.65, Hgb 12.0 L, Hct 37.4 L, MCV 80.4, MCH 25.8 L, MCHC 32.1, RDW 14.3, Plt Count 353, MPV 9.3, Neut % (Auto) 82.1 H, Lymph % (Auto) 11.8, Towns % (Auto) 5.2, Eos % (Auto) 0.0 L, Baso % (Auto) 0.1, Neut # (Auto) 10.8 H, Lymph # (Auto) 1.6, Towns # (Auto) 0.7, Eos # (Auto) 0.0, Baso # (Auto) 0.0, ESR 9, Sodium 133 L, Potassium 4.9, Chloride 102, Carbon Dioxide 24, Anion Gap 11.9, BUN 40 H, Creatinine 2.00 H, Estimated Creat Clear 35, Estimated GFR 33 L, Est GFR ( Amer) 40 L, Glucose 120 H, Calcium 8.7, Total Bilirubin 0.4, AST 19, ALT 11 L, Alkaline Phosphatase 116, C-Reactive Protein 22.2 H D, Total Protein 6.5, Albumin 3.5, Globulin 3.0, Albumin/Globulin Ratio 1.2 02/14/25 05:47: POC Glucose 134 H I & O for Labs for Last 24 Hours: Intake & Output 02/11/25 02/12/25 02/13/25 02/14/25 23:59 23:59 23:59 23:59 Intake Total 1650 / 1890 1240 / 1480 290 / 290 Output Total 1775 / 1775 425 / 425 400 / 400 Balance -125 / 115 815 / 1055 -110 / -110 Weight 155 lb 149 lb 4.047 oz 152 lb 14.4 oz 154 lb 6.4 oz Microbiology Reports for the Last 24 Hours: Microbiology 02/12/25 12:10 Sputum - Expectorated Sputum Gram Stain - Final 02/12/25 12:10 Sputum - Expectorated Sputum Sputum Culture - Preliminary Constitutional: Present moderate distress Head: Present normocephalic and atraumatic ENT: Present normal exam, normal oropharynx and mucous membranes moist Neck: Present normal inspection and full ROM Respiratory: Present prolonged expiratory phase, respiratory distress, wheezes, diminished air movement and able to speak in complete sentences Cardiac: Present S1/S2, Tachycardia and radial pulses present GI: Present soft and distention; Absent tenderness or guarding Skin: Present intact; Absent cyanosis or jaundice Neuro: Present alert, awake and oriented x 3 Extremities: Present normal inspection; Absent clubbing or cyanosis Psychiatric: Present normal affect and cooperative Meds Home Medications and Allergies Home Medications ?Medication ?Instructions ?Recorded ?Confirmed ?Type fluticasone fur. 200 mcg-umeclid 1 inh inhalation DAILY 05/06/23 02/12/25 History 62.5 mcg-vilant 25 mcg inhalat.powder (Trelegy Ellipta) owacaf-twbsicfv-mrlnzie 1 cap PO TID 05/06/23 02/12/25 History 10,000-32,000-42,000 unit capsule,delayed rel (Zenpep) simvastatin 40 mg tablet 40 mg PO HS 05/06/23 02/12/25 History acetaminophen 500 mg tablet 500 mg PO Q4HP PRN pain/fever 07/22/23 02/12/25 History gabapentin 300 mg capsule 300 mg PO BID 30 days #60 caps 03/28/24 02/12/25 Rx carvedilol 25 mg tablet 25 mg PO BID 30 days #60 tabs 04/10/24 02/12/25 Rx dapagliflozin propanediol 10 mg 10 mg PO DAILY #30 tabs 04/19/24 02/12/25 Rx tablet (Farxiga) diltiazem HCl 120 mg 120 mg PO HS 11/17/24 02/12/25 History tablet,extended release 24 hr duloxetine 60 mg capsule,delayed 60 mg PO DAILY 11/17/24 02/12/25 History release losartan 100 1 tab PO DAILY #30 tabs 11/17/24 02/12/25 Rx mg-hydrochlorothiazide 25 mg tablet pantoprazole 40 mg tablet,delayed 40 mg PO DAILY 01/17/25 02/12/25 History release oxybutynin chloride 10 mg 10 mg PO DAILY 30 days #30 tabs 01/23/25 02/12/25 Rx tablet,extended release 24 hr dextromethorphan-guaifenesin 20 20 ml PO Q12HP PRN Cough 02/03/25 02/12/25 History mg-200 mg/15 mL oral liquid melatonin 3 mg capsule 9 mg PO HS PRN Sleep 02/03/25 02/12/25 History propylene glycol 0.6 % eye drops 1 drp Eye-Both TID 02/03/25 02/12/25 History (Systane Balance) albuterol sulfate 90 mcg/actuation 2 inh inhalation Q4RT 02/12/25 02/12/25 History aerosol inhaler (Ventolin HFA) buspirone 7.5 mg tablet 7.5 mg PO BID 02/12/25 02/12/25 History prednisone 20 mg tablet 40 mg PO DAILY 02/12/25 02/12/25 History New Prescriptions to Start Prescriptions: Allergies Allergy/AdvReac Type Severity Reaction Status Date / Time No Known Allergies Allergy Verified 02/03/25 11:05 Results Laboratory Findings 02/14/25 05:02 02/14/25 05:02 PT/INR, D-dimer PT 11.9 seconds (10.1-12.5) 02/11/25 23:35 INR 1.08 (0.9-1.1) 02/11/25 23:35 Abnormal lab findings: Abnormal Labs 02/11/25 02/11/25 02/12/25 23:35 23:36 01:46 WBC RBC 4.42 L Hgb 11.5 L Hct 35.7 L MCH 26.0 L Neut % (Auto) 89.9 H Lymph % (Auto) 8.7 L Towns % (Auto) 0.7 L Eos % (Auto) 0.0 L Neut # (Auto) VBG pO2 71.5 H VBG HCO3 22.8 L VBG O2 Saturation 93.8 H VBG Base Excess -3.5 L Sodium 130 L Potassium BUN 45 H Creatinine 1.90 H Estimated GFR 35 L Est GFR ( Amer) 43 L Glucose 266 H POC Glucose 213 H Hemoglobin A1c ALT Alkaline Phosphatase 148 H Troponin I 0.05 H C-Reactive Protein NT-Pro-B Natriuret Pep 649 H Cholesterol LDL Cholesterol Direct HDL Cholesterol 02/12/25 02/12/25 02/12/25 03:00 06:12 12:18 WBC RBC 4.53 L Hgb 11.7 L Hct 36.5 L MCH 25.8 L Neut % (Auto) 83.0 H Lymph % (Auto) Towns % (Auto) Eos % (Auto) 0.0 L Neut # (Auto) VBG pO2 VBG HCO3 VBG O2 Saturation VBG Base Excess Sodium 130 L Potassium 5.2 H BUN 43 H Creatinine 1.80 H Estimated GFR 38 L Est GFR ( Amer) 45 L Glucose 142 H D POC Glucose 183 H Hemoglobin A1c ALT Alkaline Phosphatase Troponin I 0.05 H 0.04 H C-Reactive Protein NT-Pro-B Natriuret Pep Cholesterol LDL Cholesterol Direct HDL Cholesterol 02/12/25 02/12/25 02/13/25 18:09 20:15 01:04 WBC RBC Hgb Hct MCH Neut % (Auto) Lymph % (Auto) Towns % (Auto) Eos % (Auto) Neut # (Auto) VBG pO2 VBG HCO3 VBG O2 Saturation VBG Base Excess Sodium Potassium BUN Creatinine Estimated GFR Est GFR ( Amer) Glucose POC Glucose 243 H 239 H 203 H Hemoglobin A1c ALT Alkaline Phosphatase Troponin I C-Reactive Protein NT-Pro-B Natriuret Pep Cholesterol LDL Cholesterol Direct HDL Cholesterol 02/13/25 02/13/25 02/13/25 05:27 06:01 11:59 WBC 16.6 H D RBC 4.41 L Hgb 11.5 L Hct 35.4 L MCH 26.1 L Neut % (Auto) 84.0 H Lymph % (Auto) 8.6 L Towns % (Auto) Eos % (Auto) Neut # (Auto) 14.0 H VBG pO2 VBG HCO3 VBG O2 Saturation VBG Base Excess Sodium 132 L Potassium BUN 39 H Creatinine 2.10 H Estimated GFR 31 L Est GFR ( Amer) 38 L Glucose 117 H POC Glucose 121 H 215 H Hemoglobin A1c 6.8 H ALT 11 L Alkaline Phosphatase 129 H Troponin I C-Reactive Protein 40.2 H NT-Pro-B Natriuret Pep Cholesterol 76 L LDL Cholesterol Direct < 30.00 L HDL Cholesterol 29 L 02/13/25 02/13/2502/14/25 16:31 21:06 05:02 WBC 13.2 H RBC Hgb 12.0 L Hct 37.4 L MCH 25.8 L Neut % (Auto) 82.1 H Lymph % (Auto) Towns % (Auto) Eos % (Auto) 0.0 L Neut # (Auto) 10.8 H VBG pO2 VBG HCO3 VBG O2 Saturation VBG Base Excess Sodium 133 L Potassium BUN 40 H Creatinine 2.00 H Estimated GFR 33 L Est GFR ( Amer) 40 L Glucose 120 H POC Glucose 146 H 175 H Hemoglobin A1c ALT 11 L Alkaline Phosphatase Troponin I C-Reactive Protein 22.2 H D NT-Pro-B Natriuret Pep Cholesterol LDL Cholesterol Direct HDL Cholesterol 02/14/25 05:47 WBC RBC Hgb Hct MCH Neut % (Auto) Lymph % (Auto) Towns % (Auto) Eos % (Auto) Neut # (Auto) VBG pO2 VBG HCO3 VBG O2 Saturation VBG Base Excess Sodium Potassium BUN Creatinine Estimated GFR Est GFR ( Amer) Glucose POC Glucose 134 H Hemoglobin A1c ALT Alkaline Phosphatase Troponin I C-Reactive Protein NT-Pro-B Natriuret Pep Cholesterol LDL Cholesterol Direct HDL Cholesterol Assessment and Plan *Assessment and plan (1) Lung mass: Status: Acute Category: Medical Code(s): R91.8 - Other nonspecific abnormal finding of lung field (2) Hilar lymphadenopathy: Status: Acute Category: Medical Code(s): R59.0 - Localized enlarged lymph nodes (3) Pneumonia: Status: Acute Category: Medical Code(s): J18.9 - Pneumonia, unspecified organism Plan Mr. Rivero is a 69-year-old female greater than [id number] smoking history COPD cavitary lung lesions, prostate cancer status post total prostatectomy, colon cancer status post recently reestablish care with pulmonary clinic presented with worsening respiratory distress and pulmonary was called for further evaluation and management. Afebrile. Hemodynamically stable. Neutrophilic prominent leukocytosis improving. Comprehensive respiratory viral PCR panel negative. CT on this admission dense 5x9 cm medial left upper lobe mass which was new from his prior CT from 2022 along with adjacent airspace disease highly concerning for malignancy/metastatic lesion. Also noted to have lymphadenopathy hilar and mediastinal. No pulmonary embolism noted. Currently receiving Zosyn. On examination no acute respiratory distress. On room air saturating 90% and above. No significant wheezing noted on auscultation. Plan: Antibiotics can be weaned to levofloxacin to complete a total of 7-day course. Continue home Trelegy 200 inhaler along with DuoNebs 4 times daily as needed Will schedule for navigational bronchoscopy transbronchial biopsy, EBUS FNA as an outpatient basis for the noted left upper lobe lung mass and adenopathy. Not receiving any antiplatelet or anticoagulants. Receiving aspirin 81 mg daily. Risks and benefit of the bronchoscopy procedure explained in detail including but nit limited to sore throat, difficult breathing, airway injury, vocal cord injury, respiratory failure, lung collapse, infections, abnormal heart rate, medication reactions and . Alternative plan of care options including follow up imaging and observation were also explained to the patient along with possible risks and benefits associated. Patient expressed his complete understanding of the procedure, alternative plan of care options and possible complications and agreed to proceed with bronchoscopy procedure. There were no questions for me at the end of the office visit.
[2025-02-14] MEDS: ARTIFICIAL TEARS SOLN 15ML BOTTLE OP ×2 (10:43→14:16)
[2025-02-14] MEDS: BUSPIRONE HCL 5 MG TABLET 7.5 MG PO (10:44)
[2025-02-14] MEDS: guaiFENesin 600 MG TAB.ER.12H PO (10:44)
[2025-02-14] MEDS: LIPASE/PROTEASE/AMYLASE 1 EACH CAPSULE.DR PO ×2 (10:44→14:16)
[2025-02-14] MEDS: PANTOPRAZOLE 40MG TABLET 40 MG PO (10:45)
[2025-02-14] MEDS: dilTIAZem ER 120MG CAPSULE 120 MG PO (10:46)
[2025-02-14] MEDS: DAPAGLIFLOZIN PROPANEDIOL 10 MG TABLET PO (10:46)
[2025-02-14] MEDS: CARVEDILOL 25MG TABLET 25 MG PO (10:46)
[2025-02-14] MEDS: GABAPENTIN 300MG CAPSULE 300 MG PO (11:12)
[2025-02-14] MEDS: humaLOG 100 UNITS/ML 10ML VIAL (SSI) SUBCUT (11:12)
--- NOTE | 2025-02-14 11:19 | P.PN_ITS ---
Subjective Subjective Date: 02/14/25 Time: 11:19 Principal diagnosis: Chest pain Interval history: 69-year-old white male in bed in no acute distress He just returned from his stress test which was normal. Plan will be to discharge him back to the custodial with plans for outpatient bronchoscopy. Exam Data for Last 24 hours Vital signs and Labs for Last 24 Hours: Temp Pulse Resp BP Pulse Ox O2 Del Method O2 Flow Rate 98.2 F 67 16 139/76 96 Room Air 2 02/14/25 04:00 02/14/25 09:00 02/14/25 09:00 02/14/25 09:00 02/14/25 06:13 02/14/25 06:13 02/14/25 05:00 FiO2 28 02/12/25 19:12 Laboratory Results - last 24 hr 02/13/25 11:59: POC Glucose 215 H 02/13/25 16:31: POC Glucose 146 H 02/13/25 21:06: POC Glucose 175 H 02/14/25 05:02: WBC 13.2 H, RBC 4.65, Hgb 12.0 L, Hct 37.4 L, MCV 80.4, MCH 25.8 L, MCHC 32.1, RDW 14.3, Plt Count 353, MPV 9.3, Neut % (Auto) 82.1 H, Lymph % (Auto) 11.8, [place] % (Auto) 5.2, Eos % (Auto) 0.0 L, Baso % (Auto) 0.1, Neut # (Auto) 10.8 H, Lymph # (Auto) 1.6, [place] # (Auto) 0.7, Eos # (Auto) 0.0, Baso # (Auto) 0.0, ESR 9, Sodium 133 L, Potassium 4.9, Chloride 102, Carbon Dioxide 24, Anion Gap 11.9, BUN 40 H, Creatinine 2.00 H, Estimated Creat Clear 35, Estimated GFR 33 L, Est GFR ( Amer) 40 L, Glucose 120 H, Calcium 8.7, Total Bilirubin 0.4, AST 19, ALT 11 L, Alkaline Phosphatase 116, C-Reactive Protein 22.2 H D, Total Protein 6.5, Albumin 3.5, Globulin 3.0, Albumin/Globulin Ratio 1.2 02/14/25 05:47: POC Glucose 134 H I & O for Last 24 hours: Intake & Output 02/11/25 02/12/25 02/13/25 02/14/25 11:59 11:59 11:59 11:59 Intake Total 870 / 870 1720 / 1720 590 / 590 Output Total 800 / 800 1400 / 1400 400 / 400 Balance 70 / 70 320 / 320 190 / 190 Weight 149 lb 4.047 oz 152 lb 14.4 oz 154 lb 6.4 oz Microbiology Reports for the Last 24 Hours: Microbiology 02/12/25 12:10 Sputum - Expectorated Sputum Gram Stain - Final 02/12/25 12:10 Sputum - Expectorated Sputum Sputum Culture - Preliminary Constitutional Constitutional: no acute distress *Routine Respiratory Exam Respiratory: Present decreased breath sounds and CTA bilaterally *Routine Cardiovascular Exam Cardiovascular: Present RRR Progress Note: A&P Assessment and plan (1) Abnormal CT of the chest: Status: Acute (2) NSTEMI (non-ST elevated myocardial infarction): Status: Acute (3) COPD (chronic obstructive pulmonary disease): Status: Chronic (4) HTN (hypertension): Status: Chronic (5) Type 2 diabetes mellitus: Status: Chronic (6) Tobacco abuse: Status: Chronic (7) CKD stage 3b, GFR 30-44 ml/min: Status: Acute Assessment and Plan Assessment and Plan for All Diagnoses:: 1. Left upper lobe mass extending into the mediastinum abutting the thoracic aorta -Concern for cancer -Pulmonary planning for outpatient bronchoscopy -BNP 649 2. Elevated troponin with concern for non-STEMI -Coronary calcifications noted on CT of the chest -Echo shows normal EF with no wall motion abnormalities -Bobby myoview is normal. -Continue aspirin 81 mg -CRP 40.2 3. Tobacco use with COPD -Cessation recommended 4. Hypertension -Continue current medications including diltiazem, carvedilol -Holding losartan/HCTZ due to CKD 5. Type 2 diabetes mellitus -Management per hospitalist -On farxiga -Hemoglobin A1c 6.8 6. Chronic kidney disease, stage III -Baseline creatinine about 1.9-2.1 with GFR 31-35 7. Hyponatremia at 132 Stable from a cardiac standpoint for discharge home. Medication recommendations: aspirin 81 mg daily (Ok to hold for bronchoscopy) Carvedilol 25 mg twice daily Diltiazem CD1 120 mg daily Farxiga 10 mg daily Xopenex Simvastatin 40 mg daily Resume losartan/HCTZ 100/25 mg daily Follow up in office in 1-2 wks.
[2025-02-14 11:43] LABS: POC Glucose,Bedside 189 gm/dL (70-110)
[2025-02-14 12:57] LABS: POC Glucose,Bedside 160 gm/dL (70-110)
--- NOTE | 2025-02-14 13:39 | EXP.DC.SUM ---
General Admission date:: 02/12/25 Discharge date: 02/14/25 HPI HPI HPI: This is a 69-year-old male with a past medical history of COPD, prior lung nodule with cavitary lung lesion and abscess followed by Dr. Queen, hypertension, hyperlipidemia, CKD, BPH, tobacco abuse, DM 2, prior colon cancer who presents emergency department today with reported elevated troponin at [facility]. Patient had been reporting chest pressure and difficulty breathing with productive cough over the last week. Outpatient labs were obtained and it was reported the patient's troponin was 6.9 there so he was sent to the emergency department. His troponin in fact was 0.069. He does endorse chest pressure, worsening cough and congestion. Also endorses diarrhea with mild abdominal pain. He denies any fever. States he feels generally unwell and this feeling of general fatigue and malaise is progressively worse. Emergency Department workup notable for elevated troponin at 0.05. EKG without ischemia. Elevated BNP of 649. 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 Also noted to have pancolitis on CT concerning for possible C. difficile infection. Patient is resting and in no distress on room air. States that he feels generally unwell but unable to elaborate on specific characteristics of this statement. Does have rhonchorous lung sounds. Given his findings of pancolitis and likely worsening lung nodule/metastatic disease he will benefit from admission to the hospital. He is admitted to the hospital service at this time Hospital Course Hospital Course Hospital Course: Noah Rivero is a 69-year-old male with a medical history significant for chronic tobacco use, COPD on room air who presented with chest pain, shortness of breath and was admitted for NSTEMI, and a left upper lobe lung lesion highly suspicious for malignancy. Stress test formed during admission, Lexiscan Myoview normal. No indication for heart cath at this time. Plan for close follow-up with evaluation of lung mass as an outpatient. Plan to complete antibiotics for pneumonia. Stable discharge back to nursing facility. Problems addressed as follows: #Left upper lobe mass #Suspected malignancy # Pneumonia, present on admission, associated with his lung cancer, postobstructive ? Presented with shortness of breath, chest pain. Troponins peaked at 0.05. CTA chest 02/11/2025 revealed poorly defined, left upper lobar mass extending into anterior mediastinum, abutting ascending and transverse aortic segments with least partial encasement of left upper lobar segmental and subsegmental pulmonary arterial and venous vessels, measuring at least 5.2 x 10.5 x 9.4 cm. Extensive locoregional peribronchovascular thickening. Highly suspicious for malignancy. Has a history of prostate cancer s/p total prostatectomy, colon cancer s/p resection. Patient has a multi pack-year smoker. Extensively discussed left upper lobe lesion findings with patient and daughter at bedside. Lesion is concerning for cancer, patient has a history of prostate cancer s/p total prostatectomy and colon cancer s/p resection. He follows with Dr. Phillips who recently noted that his PSA level is elevated, however I am unable to find his elevated PSA. PSA levels were normal in November 2024. Patient and daughter are tearful that left upper lobe lesion is concerning for cancer. Evaluated by pulmonology, given current stability on room air, recommend transitioning to Levaquin to complete 7 days total of therapy. Continue Trelegy 200 inhaler and DuoNebs as needed 4 times a day. Plan for navigational bronchoscopy with transbronchial biopsy and EBUS FNA as an outpatient for the noted left upper lobe lung mass and adenopathy. #NSTEMI #Hypertension ? Troponins peaked at 0.05, EKG without acute ischemic changes. Echo obtained showing normal EF and no wall motion abnormalities. Cardiology was consulted. Recommended Lexiscan Myoview. Found to be normal. Continue aspirin 81 mg daily, carvedilol 25 mg twice daily, Diltiazem CD1 120 mg daily, Farxiga 10 mg daily, Simvastatin 40 mg daily, Resume losartan/HCTZ 100/25 mg daily #Pancolitis ? Seen on CT abdomen/pelvis 02/12/2025. WBC bumped to 16.6, improved to 13 by day of discharge. No signs of sepsis. Will transition from Zosyn to Levaquin as above for pneumonia and pancolitis. Tolerating p.o. intake. #History of prostate cancer s/p prostatectomy #Overactive bladder ? Continue home oxybutynin 5 mg twice daily. Continue regular follow-ups Dr. Phillips. #COPD #Chronic tobacco use ? Continue home Trelegy 200. Continue DuoNebs every 6 hours as needed. No indication for further antibiotics. Recommended tobacco cessation. Patient not interested at this time. #Chronic pancreatitis ? Continue home Creon. Stable. #Type 2 diabetes #Peripheral neuropathy ? Hemoglobin A1c 6.8%. Continue home Lantus 25 units twice daily, Farxiga 10 mg. Continue home gabapentin 300 mg twice daily. #GERD ? Continue home PPI. #Anxiety/depression ? Continue home duloxetine 60 mg, BuSpar 7.5 mg twice daily. #CKD stage IIIb ? Creatinine 2.1, GFR 31. Stable. Stable discharge back to nursing facility. Further management as an outpatient with pulmonology for workup of suspected lung malignancy. Total time spent on discharge 32 minutes in counseling, documentation, chart review, and direct care with patient. Exam Data for Last 24 hours Vital signs and Labs for Last 24 Hours: Temp Pulse Resp BP Pulse Ox O2 Del Method O2 Flow Rate 98.1 F 68 20 158/84 H 98 Room Air 2 02/14/25 11:35 02/14/25 12:58 02/14/25 11:35 02/14/25 11:35 02/14/25 11:35 02/14/25 13:00 02/14/25 05:00 FiO2 28 02/12/25 19:12 Laboratory Results - last 24 hr 02/12/25 06:34: POC Glucose 160 H 02/13/25 16:31: POC Glucose 146 H 02/13/25 21:06: POC Glucose 175 H 02/14/25 05:02: WBC 13.2 H, RBC 4.65, Hgb 12.0 L, Hct 37.4 L, MCV 80.4, MCH 25.8 L, MCHC 32.1, RDW 14.3, Plt Count 353, MPV 9.3, Neut % (Auto) 82.1 H, Lymph % (Auto) 11.8, [place] % (Auto) 5.2, Eos % (Auto) 0.0 L, Baso % (Auto) 0.1, Neut # (Auto) 10.8 H, Lymph # (Auto) 1.6, [place] # (Auto) 0.7, Eos # (Auto) 0.0, Baso # (Auto) 0.0, ESR 9, Sodium 133 L, Potassium 4.9, Chloride 102, Carbon Dioxide 24, Anion Gap 11.9, BUN 40 H, Creatinine 2.00 H, Estimated Creat Clear 35, Estimated GFR 33 L, Est GFR ( Amer) 40 L, Glucose 120 H, Calcium 8.7, Total Bilirubin 0.4, AST 19, ALT 11 L, Alkaline Phosphatase 116, C-Reactive Protein 22.2 H D, Total Protein 6.5, Albumin 3.5, Globulin 3.0, Albumin/Globulin Ratio 1.2 02/14/25 05:47: POC Glucose 134 H 02/14/25 10:42: POC Glucose 189 H I & O for Last 24 hours: Intake & Output 02/11/25 02/12/25 02/13/25 02/14/25 23:59 23:59 23:59 23:59 Intake Total 1650 / 1890 1240 / 1480 290 / 290 Output Total 1775 / 1775 425 / 425 400 / 400 Balance -125 / 115 815 / 1055 -110 / -110 Weight 70.307 kg 67.7 kg 69.354 kg 70.035 kg Microbiology Reports for the Last 24 Hours: Microbiology 02/12/25 12:10 Sputum - Expectorated Sputum Gram Stain - Final 02/12/25 12:10 Sputum - Expectorated Sputum Sputum Culture - Preliminary Constitutional Constitutional: no acute distress, thin and chronically ill appearing *Routine HEENT Exam Head: Present normocephalic Eye: Present EOMI and PERRL ENT: Present mucous membranes moist *Routine Neck Exam Neck: Present supple; Absent lymphadenopathy *Routine Respiratory Exam Respiratory: Present prolonged expiratory phase; Absent rhonchi, wheezes or crackles *Routine Cardiovascular Exam Cardiovascular: Present RRR *Routine Abdominal Exam Abdominal: Present soft and normoactive bowel sounds; Absent tenderness *Routine Rectal Exam Patient deferred: visual exam *Routine Exam Patient deferred: penile exam *Routine Extremities Exam Extremities: Absent cyanosis, clubbing or edema *Routine Skin Exam Skin: Present warm; Absent rash *Routine Neurological Exam Neurological: Present alert, normal reflexes and moving all extremities; Absent altered mental status Comments: Oriented to self and place. Decreased sensation in feet. Appears at baseline mentation Results Data Completed and Pending Labs on day of discharge: Labs from last 24 hours 02/14/25 02/14/25 02/14/25 10:42 05:47 05:02 WBC 13.2 H RBC 4.65 Hgb 12.0 L Hct 37.4 L MCV 80.4 MCH 25.8 L MCHC 32.1 RDW 14.3 Plt Count 353 MPV 9.3 Neut % (Auto) 82.1 H Lymph % (Auto) 11.8 Panola % (Auto) 5.2 Eos % (Auto) 0.0 L Baso % (Auto) 0.1 Neut # (Auto) 10.8 H Lymph # (Auto) 1.6 [place] # (Auto) 0.7 Eos # (Auto) 0.0 Baso # (Auto) 0.0 ESR 9 Sodium 133 L Potassium 4.9 Chloride 102 Carbon Dioxide 24 Anion Gap 11.9 BUN 40 H Creatinine 2.00 H Estimated Creat Clear 35 Estimated GFR 33 L Est GFR ( Amer) 40 L Glucose 120 H POC Glucose 189 H 134 H Calcium 8.7 Total Bilirubin 0.4 AST 19 ALT 11 L Alkaline Phosphatase 116 C-Reactive Protein 22.2 H D Total Protein 6.5 Albumin 3.5 Globulin 3.0 Albumin/Globulin Ratio 1.2 02/13/25 02/13/25 02/12/25 21:06 16:31 06:34 WBC RBC Hgb Hct MCV MCH MCHC RDW Plt Count MPV Neut % (Auto) Lymph % (Auto) [place] % (Auto) Eos % (Auto) Baso % (Auto) Neut # (Auto) Lymph # (Auto) [place] # (Auto) Eos # (Auto) Baso # (Auto) ESR Sodium Potassium Chloride Carbon Dioxide Anion Gap BUN Creatinine Estimated Creat Clear Estimated GFR Est GFR ( Amer) Glucose POC Glucose 175 H 146 H 160 H Calcium Total Bilirubin AST ALT Alkaline Phosphatase C-Reactive Protein Total Protein Albumin Globulin Albumin/Globulin Ratio Preliminary micro results at discharge 02/12/25 12:10 Sputum Culture - Preliminary Sputum - Expectorated Sputum DS: Diagnosis Discharge Diagnosis (1) Lung mass: Status: Acute Code(s): R91.8 - Other nonspecific abnormal finding of lung field (2) Hilar lymphadenopathy: Status: Acute Code(s): R59.0 - Localized enlarged lymph nodes (3) Pneumonia: Status: Acute Code(s): J18.9 - Pneumonia, unspecified organism Meds Home Medications and Allergies Home Medications ?Medication ?Instructions ?Recorded ?Confirmed ?Type fluticasone fur. 200 mcg-umeclid 1 inh inhalation DAILY 05/06/23 02/12/25 History 62.5 mcg-vilant 25 mcg inhalat.powder (Trelegy Ellipta) [id number] 1 cap PO TID 05/06/23 02/12/25 History 10,000-32,000-42,000 unit capsule,delayed rel (Zenpep) simvastatin 40 mg tablet 40 mg PO HS 05/06/23 02/12/25 History acetaminophen 500 mg tablet 500 mg PO Q4HP PRN pain/fever 07/22/23 02/12/25 History gabapentin 300 mg capsule 300 mg PO BID 30 days #60 caps 03/28/24 02/12/25 Rx carvedilol 25 mg tablet 25 mg PO BID 30 days #60 tabs 04/10/24 02/12/25 Rx dapagliflozin propanediol 10 mg 10 mg PO DAILY #30 tabs 04/19/24 02/12/25 Rx tablet (Farxiga) diltiazem HCl 120 mg 120 mg PO HS 11/17/24 02/12/25 History tablet,extended release 24 hr duloxetine 60 mg capsule,delayed 60 mg PO DAILY 11/17/24 02/12/25 History release losartan 100 1 tab PO DAILY #30 tabs 11/17/24 02/12/25 Rx mg-hydrochlorothiazide 25 mg tablet pantoprazole 40 mg tablet,delayed 40 mg PO DAILY 01/17/25 02/12/25 History release oxybutynin chloride 10 mg 10 mg PO DAILY 30 days #30 tabs 01/23/25 02/12/25 Rx tablet,extended release 24 hr dextromethorphan-guaifenesin 20 20 ml PO Q12HP PRN Cough 02/03/25 02/12/25 History mg-200 mg/15 mL oral liquid melatonin 3 mg capsule 9 mg PO HS PRN Sleep 02/03/25 02/12/25 History propylene glycol 0.6 % eye drops 1 drp Eye-Both TID 02/03/25 02/12/25 History (Systane Balance) albuterol sulfate 90 mcg/actuation 2 inh inhalation Q4RT 02/12/25 02/12/25 History aerosol inhaler (Ventolin HFA) buspirone 7.5 mg tablet 7.5 mg PO BID 02/12/25 02/12/25 History prednisone 20 mg tablet 40 mg PO DAILY 02/12/25 02/12/25 History aspirin 81 mg chewable tablet 81 mg PO DAILY 30 days #30 tabs 02/14/25 Rx levofloxacin 750 mg tablet 750 mg PO Q48H 3 days #2 tabs 02/14/25 Rx New Prescriptions to Start Prescriptions: Alphonso Perez levofloxacin Alphonso Auguste Allergies Allergy/AdvReac Type Severity Reaction Status Date / Time No Known Allergies Allergy Verified 02/03/25 11:05 Discharge Plan Disposition Patient Disposition: er Intermediate Care Fac Condition: Good Discharge Order Discharge Orders: Discharge Order (Routine); Ordered 02/14/25 Ordered By: Alphonso Auguste Follow up Plan Follow up with: Aneudy Ray PA [Physician [employer], Cardiology] - 03/15/25 11:00 am Latha Queen MD [Physician, Pulmonology] - 03/17/25 7:30 am Referral Note: pre-op testing 03/14/25 at 11:30 Prescriptions/Medication Reconciliation: New aspirin 81 mg Tablet,Chewable 81 mg PO DAILY 30 Days Qty: 30 0RF levofloxacin 750 mg Tablet 750 mg PO Q48H 3 Days Qty: 2 0RF Rx Instructions: first dose 02/16/25 Continued diltiazem HCl 120 mg tablet extended release 24 hr 120 mg PO HS duloxetine 60 mg capsule,delayed release(DR/EC) 60 mg PO DAILY losartan-hydrochlorothiazide 100-25 mg tablet 1 tab PO DAILY Qty: 30 3RF Rx Instructions: HOLD FOR SBP <100, DBP <60, OR HR < 60 dapagliflozin propanediol [Farxiga] 10 mg tablet 10 mg PO DAILY Qty: 30 3RF melatonin 3 mg capsule 9 mg PO HS PRN (Reason: Sleep) Systane Balance 0.6 % drops 1 drp Eye-Both TID dextromethorphan-guaifenesin 20-200 mg/15 mL liquid 20 ml PO Q12HP PRN (Reason: Cough) pantoprazole 40 mg tablet,delayed release (DR/EC) 40 mg PO DAILY oxybutynin chloride 10 mg tablet extended release 24hr 10 mg PO DAILY 30 Days Qty: 30 0RF gabapentin 300 mg capsule 300 mg PO BID 30 Days Qty: 60 2RF simvastatin 40 mg tablet 40 mg PO HS Zenpep 10,000-32,000 -42,000 unit capsule,delayed release(DR/EC) 1 cap PO TID Patient Comments: TAKE ONE CAPSULE BY MOUTH THREE TIMES DAILY Brianledenisse Ellipta 200-62.5-25 mcg blister with device 1 inh INHALATION DAILY carvedilol 25 mg Tablet 25 mg PO BID 30 Days Qty: 60 0RF Rx Instructions: HOLD FOR SBP <100, DBP <60, OR HR < 60 prednisone 20 mg tablet 40 mg PO DAILY Rx Instructions: 7 day course, started on 02/11/25 buspirone 7.5 mg tablet 7.5 mg PO BID albuterol sulfate [Ventolin HFA] 90 mcg/actuation HFA aerosol inhaler 2 inh INHALATION Q4RT acetaminophen 500 mg Tablet 500 mg PO Q4HP PRN (Reason: pain/fever) Problem Reconciliation Problems Reviewed?: Yes Patient Discharge Instructions ACTIVITY: Continue current activity DIET: continue same diet Patient Instructions: DI for Kidney Failure, DI for Chest Pain, Chemical Stress Test, Stop Light COPD Print Language: Occitan Providers Primary Care Provider: Garcia Melgar Admit Provider: Forrest Dominguez Attending Provider: Forrest Dominguez
[2025-02-14] MEDS: ASPIRIN 81MG CHEWABLE TABLET 81 MG PO (14:25)
== END 2025-02-14 15:36 | DRG 280 ==
LOC: ER 02-12 01:02 → 2ND 02-12 01:10
PROVIDERS: Nurse Practitioner Acute Care; Admitting Provider Student in an Organized Health Care Education/Training Program; Emergency Provider Emergency Medicine; PCP Family Medicine; Visit Provider Student in an Organized Health Care Education/Training Program
DX: I21.4 Non-ST elevation (NSTEMI) myocardial infarction (principal); J15.69 Pneumonia due to other Gram-negative bacteria; C34.12 Malignant neoplasm of upper lobe, left bronchus or lung; C77.1 Secondary and unspecified malignant neoplasm of intrathoracic lymph nodes; N18.4 Chronic kidney disease, stage 4 (severe); K86.1 Other chronic pancreatitis; J44.0 Chronic obstructive pulmonary disease with (acute) lower respiratory infection; E87.1 Hypo-osmolality and hyponatremia; E11.42 Type 2 diabetes mellitus with diabetic polyneuropathy; I12.9 Hypertensive chronic kidney disease with stage 1 through stage 4 chronic kidney disease, or unspecified chronic kidney disease; E11.22 Type 2 diabetes mellitus with diabetic chronic kidney disease; F32.A Depression, unspecified; F41.9 Anxiety disorder, unspecified; K21.9 Gastro-esophageal reflux disease without esophagitis; K52.9 Noninfective gastroenteritis and colitis, unspecified; E78.5 Hyperlipidemia, unspecified; N32.81 Overactive bladder; F17.210 Nicotine dependence, cigarettes, uncomplicated; Z85.46 Personal history of malignant neoplasm of prostate; Z85.038 Personal history of other malignant neoplasm of large intestine; Z79.4 Long term (current) use of insulin; Z79.85 Long-term (current) use of injectable non-insulin antidiabetic drugs; Z79.84 Long term (current) use of oral hypoglycemic drugs; Z79.899 Other long term (current) drug therapy; Z71.6 Tobacco abuse counseling
CPT/HCPCS: 0223U; 36415; 71275; 74177; 78452; 80048; 80053; 80061; 81001; 82803; 82962; 83036; 83605; 83880; 84145; 84443; 84484; 85025; 85610; 85651; 86140; 87070; 87077; 87186; 87205; 89220; 93005; 93017; 93018; 93308; 94640; 94760; 97162; 97166; 99285; A9502; J1650; J2543; J2785; J7120; Q9967

== ENCOUNTER 2025-02-20 13:36 | Observation (INO) | payer MEDICARE, MEDICAID, SELFPAY ==
--- OUTSIDE RECORDS SUMMARY | 2025-02-10 10:40 | XMS_ITS | Encounter Summary ---
Author Organization [facility] Address [address] [place] [address] Care Team Providers Care Automobile Rental Representative Name Role Phone Shankar Raya MD Primary Care Provider + [phone] Reason for Referral * Consultation (Routine) - Authorized Specialty Diagnoses / Procedures Referred By Contimtiaz t Referred To Contact Diagnoses CKD (chronic kidney disease) stage 4, GFR 15-29 ml/min (CMS/HCC) Ira Neely APRN [address] [address] Phone: tel: fax: Referral ID Status Reason Start Date Expiration Date V isits Requested Visits Authorized [id number] Authorized 02/10/2025 08/12/2026 1 1 Encounter Details Date Type Department Care Team (Late st Contact Info) Description 02/10/2025 10:40 AM EDT Office Visit [facility] [address] [place] [phone] Ira Neely APRN [address] [address] CKD (chronic kidney disease) stage 4, GFR 15-29 ml/min (CMS/HCC) (Primary Dx); Essential hypertension; Diabetes mellitus due to underlying condition with diabetic chronic kidney disease, unspecified CKD stage, unspecified whether intermediate insulin use (CMS/HCC); Chronic kidney disease-mineral and [...] Notes * Progress Notes - Ira Neely, NUISANCE ANIMAL DAMAGE CONTROL AGENT - 02/10/2025 10:40 AM EDT Nephrology Clinic [...] of renal disease. He is currently a [place] resident. His BP medications were recently adjusted. Patients renal function Creatinine07/15/24 2.4 egfr 27. Most recent creatinine 2.2 egfr 30. Likely baseline 2-2.4. Patient denies any edema. Notes appettie has been very poor. States he was started [place] an appetite stimulant at [place]. Labs at [place] with glucose 44, Insulin dose has decreased [...] mg, Daily DULoxetine (CYMBALTA) 60 mg, Daily Luiumueilxq-Itowesmvf-Qsaotb (Trelegy Ellipta) 200-62.5-25 MCG/ACT aerosol powder Inhale. gabapentin (NEURONTIN) 300 mg, 2 times daily Bvgcname-Htwhjckwndpe-JGI 400 (VISINE DRY EYE OP) Administer into [...] OTC (PRILOSEC OTC) 20 mg, Daily pancrelipase, Wtv-Wyly-Xtan, (Zenpep) [id number] units capsule delayed-release particles capsule 1capsule, 3 [...] Labs scanned in to media tab of [employer] from an outside facility. Labs completed on [...] Patient confirms they are physically located in [place]? Yes If the patient is not physically located in [place], the provider has confirmed with [facility] thatthe provider is authorized to provide services in patient's stated location? N/A Provider Location: [facility] facility Audio and video or audio [...] Description 06/23/2025 10:40 AM EST Office Visit [facility] [address] [place] [address] Ira Neely APRN [address] [address] Scheduled Orders Name Type Priority Associated Diagnoses Orde r Schedule CBC W/O Differential Lab Routine CKD (chronic kidney disease) stage 4, GFR 15-29 ml/min ([facility]) Expected: 02/10/2025 (Approximate), Expires: 08/10/2026 Protein, Random, Urine with Creatinine Lab Routine CKD (chronic kidney disease) stage 4, GFR 15-29 ml/min ([facility]) Expected: 02/10/2025 (Approximate), Expires: 08/10/2026 Urinalysis with reflex microscopic (Culture NOT Included) Lab Routine CKD (chronic kidney disease) stage 4, GFR 15-29 ml/min ([facility]/HCC) Expected: 02/10/2025 (Approximate), Expires: 08/10/2026 PTH Intact Total Lab Routine CKD (chronic kidney disease) stage 4, GFR 15-29 ml/min ([facility]) Expected: 02/10/2025 (Approximate), Expires: 08/10/2026 Renal Function Panel, Plasma Lab Routine CKD (chronic kidney disease) stage 4, GFR 15-29 ml/min ([facility]) Expected: 02/10/2025 (Approximate), Expires: 08/10/2026 Scheduled Referrals Name Type Priority Associated Diagnoses Order Schedule Follow Up Nephrology Outpatient Referral Routine CKD (chronic kidney disease) stage 4, GFR 15-29 ml/min ([facility]) Expected: 06/12/2025 (Approximate), Expires: 03/12/2026 documented as of this encounter Visit Diagnoses Diagnosis CKD (chronic kidney disease) stage 4, GFR 15-29 ml/min ([facility])- Primary Chronic kidney disease, Stage IV (severe) Essential hypertension Unspecified essential hypertension Diabetes mellitus due to underlying condition with diabetic chronic kidney disease, unspecified CKD stage, unspecified whether intermediate insulin use ([facility]) Chronic kidney disease-mineral and bone disorder Anemia due to stage 4 chronic kidney disease documented in this encounter Additional Health Concerns Assessment Noted Time A Body Mass Index follow-up plan has been documented for the patient 02/10/2025 11:06 AM EDT documented as of this encounter Care Teams Automobile Rental Representative Relationship Specialty Start Date End Date Shankar Raya MD [address] [place] [address] [place] [id number] PCP - General 10/12/20 documented as of this encounter
--- OUTSIDE RECORDS SUMMARY | 2025-02-17 08:02 | XMS_ITS | Continuity of Care Document ---
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 Name Role Phone Kayleen ANDREW, Walter Unavailable Unavailable Allergies, Adverse Reactions, Alerts Substance [...] mg capsule,delayed release - Active AUTOSHIELD MIS [id number] - Act nico acetaminophen 500 mg tablet [...] Comments No Known Problems Procedures Procedure Date [facility] 10 Trim normal nail, any number Debride mycotic nails 5 or less 025 COMPRE OPH EXAM NEW PT 1/> Trim Dystrophic nail(s) Low extemity neur exam docum Advance Directives Directive Yes / No Effective Date File Name Resuscitation Attempt Resuscitation/CPR N/A N /A Other Directive No N/A N/A WARNING:The information contained in this section is historical and is provided for information only and does not constitute a legal document or any assurance that the information is still accurate. Please verify the information with the del angel of the legal document before using it for clinical purposes. Encounters Encounter Description Practice Location Reason(s) For Visit Diagnoses Date Provider Providers Copied on Encounter [address] [place] [address], [address] [place] [address], [id number], tel:[phone] [facility] No Information [address] [place], [place]. [facility] [address] [place] [address], [address] [place] [address], [id number], tel:[phone] [facility] ear care exam (chief complaint) Unspecified hearing loss, bilateral 5 Shelley-Hard caridadlisa [place]. [address] [facility], [address], [place], [address], . Referring Provider: Azar Louis. [address] [place] [address], [id number] [place] [address], [place], [place], [id number], tel:[phone] [facility] Nail dystrophyOnych ogryphosisType 2 diabetes mellitus with diabetic peripheral angiopathy without gangreneLong term (current) use of insulin 5 [place], [place]. [address] [place] [address], [address] [place] [address], [place], [place], [id number], tel:[phone] [facility] Foreign body sensation (chief complaint) Type 2 diabetes mellitus without complicationsC hanges in retinal vascular appearance, bilateralPrese nce of intraocular lensDry eye syndrome of bilateral lacrimal glands 5 [place]. Referring Provider: Azar Louis. [address] [place] [address], [address] [place] [address], [place], [place], [id number], tel:[phone] [facility] No Information 5 [place]. [address] [place] [address], [address] [place], [place] [address], [place], [place], [id number], tel:[phone] [facility] Type 2 diabetes mellitus with diabetic peripheral angiopathy without gangreneOther specified peripheral vascular diseasesNail dystrophyOnych ogryphosis 5 [place], [place]. Family History Family Member Type Diagnosis Age At Onset No Information Payers Payer name Insurance type Covered constitution party ID Authoriza tion(s) Medicare [facility] [id number] Medicaid [facility] [id number] Social History Type Description Quantity Date Captured Comments Sex Male Smoking Status No Information Chief Complaint And Reason For Visit No Information Reason For Referral Reason For Referral No Information Plan Of Treatment Date Type Action Status Appointment Rivero Noah BOOKED Patient Education Learning About Your Ear [...] Information Instructions Date Instruction Additional Infor mation may refer to audiolo gy if pt, [...] follow up in 2-3 months 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 Reinforced the [...] a nail nipper and an electric rotary universal grinder operator in an atraumatic fashion; this was performed in an attempt to prevent pain and reduce risk of infection. Alcohol applied to the digits afterwards. Related to Onychogryphosis Assessments Type Assessment Date No Information Patient Care Teams Name Effective Dates (start - stop) Status Members No Information
[2025-02-20] VITALS (20 sets, daily range): BP systolic 104–146; BP diastolic 63–78; PULSE 77–88; RESP 12–24; TEMP 36.8–36.9; O2SAT 88–100; BMI 22.6
--- NOTE | 2025-02-20 13:31 | CT_ITS ---
FINAL REPORT TECHNIQUE: Thin section axial images were obtained through the lumbar spine without contrast. Sagittal and coronal reconstruction images were obtained from the axial data. Exam was performed using dose reduction techniques. CLINICAL HISTORY: pain x 2 weeks COMPARISON: None FINDINGS: There is a compression fracture of T12 with a mottled appearance. Pathologic fracture is a concern. There is 25% loss of height of the vertebral body. Lytic and destructive lesion is seen with pathologic fracture involving the left aspect of L3. Multilevel degenerative disc disease is noted. Calcifications in the pancreas suggest chronic pancreatitis. Otherwise, paraspinal soft tissues are without acute abnormalities. IMPRESSION: Fracture at T12, likely pathologic. Lytic and destructive lesion with pathologic fracture of L3. Both findings are concerning for metastatic disease. Consider MRI for further evaluation. Reviewed, Interpreted and Dictated by Cinthya Wong MD Transcribed by Lauryn Chisholm Authenticated and [facility]
--- NOTE | 2025-02-20 13:31 | XR_ITS ---
FINAL REPORT CLINICAL HISTORY: short of breath COMPARISON: 07/22/2023 FINDINGS: A portable view of the chest was obtained. The heart is normal in size. There is new fullness to the superior left hilum. A new medial left upper lobe opacity is noted. Left hilar mass with postobstructive atelectasis or pneumonia is suspected. There is no pleural effusion or pneumothorax. IMPRESSION: New medial left upper lobe opacity, new fullness to the superior left hilum, and left hilar mass as above. Please see recent chest CT dated 02/12/2025. Reviewed, Interpreted and Dictated by Cinthya Wong MD Transcribed by Lauryn Chisholm Authenticated and [facility]
--- NOTE | 2025-02-20 13:36 | ED_ITS ---
<Statement entered by Aneudy Garcia MD - 02/20/25 19:13> I was consulted by the ELVIS, and we discussed the complexity of the problems being addressed. I approve the treatment and management plan for this patient's care in the emergency department, thus performing a substantive portion of the medical decision making. Aneudy Garcia MD <Statement entered by Kole Norwood MD - 02/20/25 17:19> I consulted the ELVIS, and we discussed the complexity of the problems being addressed. I approved the treatment and management plan for this patient's care in the emergency department, thus performing a substantial portion of the medical decision making. Jonh Norwood MD Discharge Plan Disposition Patient Disposition: Admitted Prescriptions Prescriptions: No Action diltiazem HCl 120 mg tablet extended release 24 hr 120 mg PO HS duloxetine 60 mg capsule,delayed release(DR/EC) 60 mg PO DAILY losartan-hydrochlorothiazide 100-25 mg tablet 1 tab PO DAILY Qty: 30 3RF Rx Instructions: HOLD FOR SBP <100, DBP <60, OR HR < 60 dapagliflozin propanediol [Farxiga] 10 mg tablet 10 mg PO DAILY Qty: 30 3RF melatonin 3 mg capsule 9 mg PO HS PRN (Reason: Sleep) Systane Balance 0.6 % drops 1 drp Eye-Both TID dextromethorphan-guaifenesin 20-200 mg/15 mL liquid 20 ml PO Q12HP PRN (Reason: Cough) pantoprazole 40 mg tablet,delayed release (DR/EC) 40 mg PO DAILY oxybutynin chloride 10 mg tablet extended release 24hr 10 mg PO DAILY 30 Days Qty: 30 0RF gabapentin 300 mg capsule 300 mg PO BID 30 Days Qty: 60 2RF simvastatin 40 mg tablet 40 mg PO HS Zenpep 10,000-32,000 -42,000 unit capsule,delayed release(DR/EC) 1 cap PO TID Patient Comments: TAKE ONE CAPSULE BY MOUTH THREE TIMES DAILY Trelegy Ellipta 200-62.5-25 mcg blister with device 1 inh INHALATION DAILY carvedilol 25 mg Tablet 25 mg PO BID 30 Days Qty: 60 0RF Rx Instructions: HOLD FOR SBP <100, DBP <60, OR HR < 60 prednisone 20 mg tablet 40 mg PO DAILY Rx Instructions: 7 day course, started on 02/11/25 buspirone 7.5 mg tablet 7.5 mg PO BID albuterol sulfate [Ventolin HFA] 90 mcg/actuation HFA aerosol inhaler 2 inh INHALATION Q4RT aspirin 81 mg Tablet,Chewable 81 mg PO DAILY 30 Days Qty: 30 0RF levofloxacin 750 mg Tablet 750 mg PO Q48H 3 Days Qty: 2 0RF Rx Instructions: first dose 02/16/25 acetaminophen 500 mg Tablet 500 mg PO Q4HP PRN (Reason: pain/fever) Clinical Impressions Clinical Impression: Lung mass, Postobstructive pneumonia Print Language Print Language: Turkmen Discharge ED Provider: Kole Norwood General Adult HPI General Chief complaint: PAIN Stated complaint: low back pain Time Seen by Provider: 02/20/25 13:47 Mode of Arrival: EMS Source of Information: EMS History of Present Illness HPI narrative: 69-year-old male presents to the ED today via EMS for complaint of low back pain for 2 weeks. Patient states that he has had no trauma, no falls. Patient says it has been hurting since the last time he was here for pneumonia. Patient lives at [facility]. The halfway called for patient's oxygen dropping to the 80s. EMS stated that he was going outside for smoke break when they called. EMS got on scene and his O2 was 97%. They did give him a DuoNeb. He is being treated for pneumonia currently with Levaquin. He uses inhalers as well. He does have a very dry tongue. He thinks this is from using the inhalers and nebs. Patient has had some nausea but no vomiting or diarrhea. Patient here on room air was 93 to 97%. Patient says he has been coughing up a good amount of sputum from having pneumonia. His glucose with EMS was 164. Related Data Home Medications ?Medication ?Instructions ?Recorded ?Confirmed fluticasone fur. 200 mcg-umeclid 1 inh inhalation ROGELIO Y 05/06/23 02/12/25 62.5 mcg-vilant 25 mcg inhalat.powder (Trelegy Ellipta) [id number] 1 cap PO TID 05/06/23 10,000-32,000-42,000 unit capsule,delayed rel (Zenpep) simvastatin 40 mg tablet 40 mg PO HS 05/06/23 5 acetaminophen 500 mg tablet 500 mg PO Q4HP PRN pain/fe pedro luis 07/22/23 02/12/25 diltiazem HCl 120 mg 120 mg PO HS 11/17/24 tablet,extended release 24 hr duloxetine 60 mg capsule,delayed 60 mg PO DAILY 02/12/25 release pantoprazole 40 mg tablet,delayed 40 mg PO DAILY 01/1702/12/25 release dextromethorphan-guaifenesin 20 20 ml PO Q12HP PRN Cou gh 02/03/25 02/12/25 mg-200 mg/15 mL oral liquid melatonin 3 mg capsule 9 mg PO HS PRN Sleep 5 02/12/25 propylene glycol 0.6 % eye drops 1 drp Eye-Both TID 02/12/25 (Systane Balance) albuterol sulfate 90 mcg/actuation 2 inh inhalation Q4 RT 02/12/25 02/12/25 aerosol inhaler (Ventolin HFA) buspirone 7.5 mg tablet 7.5 mg PO BID 02/12/2502/12 prednisone 20 mg tablet 40 mg PO DAILY 02/12/2501/30 Previous Rx's ?Medication ?Instructions ?Recorded gabapentin 300 mg capsule 300 mg PO BID 30 days #60 ca ps 03/28/24 carvedilol 25 mg tablet 25 mg PO BID 30 days #60 tab s 04/10/24 dapagliflozin propanediol 10 mg 10 mg PO DAILY #30 tab s 04/19/24 tablet (Farxiga) losartan 100 1 tab PO DAILY #30 tabs 10/30 02/23 mg-hydrochlorothiazide 25 mg tablet oxybutynin chloride 10 mg 10 mg PO DAILY 30 days #30 t abs 01/23/25 tablet,extended release 24 hr aspirin 81 mg chewable tablet 81 mg PO DAILY 30 days # 30 tabs 02/14/25 levofloxacin 750 mg tablet 750 mg PO Q48H 3 days #2 ta bs 02/14/25 Allergies Allergy/AdvReac Type Severity Reaction Status Date / Time No Known Allergies Allergy Verified 02/03/25 11:05 [facility] Disclaimer: The information contained in this section may have been updated after the patient was seen, as this information can be updated by other users. Medical History Hilar lymphadenopathy Lung mass Encounter for special screening examination for neoplasm of respiratory organ Mitral regurgitation SOB (shortness of breath) T12 compression fracture Kkwku-xj-xkblitd kidney injury GERD (gastroesophageal reflux disease) Adult failure to thrive Fall Acute pain of left hip Acute hyperkalemia [place] (acute kidney injury) Altered mental status Prostate cancer COPD mixed type Neuropathy Frequent falls Abnormal computerized axial tomography of chest Tobacco abuse Smoking greater than 30 pack years Dyspnea on exertion Pulmonary emphysema Cavitary lesion of lung Lung abscess COVID COVID CKD (chronic kidney disease) Chronic pancreatitis due to chronic alcoholism Hyponatremia Pneumonia COPD (chronic obstructive pulmonary disease) Asthma Alcohol abuse Anxiety Depression Arthritis Irritable bowel syndrome (IBS) History of gastroesophageal reflux (GERD) Diabetes mellitus, type 2 Hypertension Hyperlipidemia Colon cancer Pneumonia Hypomagnesemia Hyponatremia Chronic pancreatitis Protein-calorie malnutrition, moderate Acute alcoholic pancreatitis Alcohol withdrawal Illiteracy Transaminitis Type 2 diabetes mellitus Macrocytic anemia Protein-calorie malnutrition, mild Acute renal failure Chronic alcohol abuse [place] (acute kidney injury) Polysubstance abuse Acute pancreatitis Alcoholic pancreatitis Alcoholism HTN (hypertension) COPD (chronic obstructive pulmonary disease) Hx of malignant neoplasm of colon Tobacco use disorder Surgical History History of cataract surgery S/P TURP History of colon resection History of colonoscopy Hx of prostatectomy Family History Mother Family history of diabetes mellitus type II Social History Smoking Status: Current every day smoker tobacco type: cigarettes packs per day: 1 years smoked: 54 quit status: has quit before second hand exposure: Yes alcohol intake: former counseling provided: provider counseling substance use type: marijuana current occupational status: disabled Travel in the last 8 weeks?: None household members: none housing: apartment lives independently: Yes (home health comes twice a week ) marital status: current occupational exposures/hazards: No caffeine: Yes (coffee) physical activity: none do you feel safe at home: Yes Have you lived/traveled outside US in past 30 days?: No Contact w/someone who lives/traveled outside US past 30 days?: No Exposure to someone with infectious disease in past 14 days?: No Do you have a fever (greater than 100.4 F or 38 C)?: No Have you tested positive for COVID-19?: No Exposed to someone with COVID-19 in past 14 days?: No Do you have a sore throat?: No Do you have a cough?: No Do you have any weakness?: No Do you have any diarrhea?: No Are you experiencing any unusual bleeding?: No Do you have any muscle aches/pain?: No Do you have any abdominal pain?: No Are you experiencing loss of taste or smell?: No Other Medical History Have you received the Flu Vaccine for this season: No Have you received the Pneumonia Vaccine: No ROS Obtained: Yes Systems reviewed as appropriate & no additional complaints except as documented Constitutional Constitutional: Reports as per HPI Physical Exam General General appearance: alert and in distress (Patient complaining of low back pain on the left) Head Head exam: atraumatic and normocephalic Eye Eye exam: Present PERRL and EOMI ENT ENT exam: Present normal oropharynx and mucous membranes moist Neck Neck exam: Present full ROM and trachea midline Respiratory Respiratory exam: Present wheezes and other (Rhonchi throughout) Cardiovascular Cardiovascular exam: Present regular rate, normal rhythm, normal heart sounds, +S1 and +S2 Abdominal Exam Abdominal exam: Present soft and normal bowel sounds Extremities Exam Extremities exam: Present full ROM and normal capillary refill Neurological Exam Neurological exam: Present alert and oriented X3 Skin Skin exam: Present warm, dry and intact Medical Decision Making Medical Records Screening: Per USPSTF and CDC recommendations, given the prevalence of disease in our region, it is our hospital?s policy to screen for HIV and viral Hepatitis for all patients aged 18 and over and those with ongoing risk factors. Steven Inquiry Pt receiving controlled substance: No Steven was queried for this patient: No Vital Signs: 02/20/25 13:30 02/20/25 13:50 02/20/25 13:50 Temperature 98.5 F 98.5 F Temperature Source Oral Oral Pulse Rate 83 85 Pulse Rate [Right] 85 Respiratory Rate 20 20 Blood Pressure 107/66 L 119/71 Blood Pressure [Right Arm] 119/71 Blood Pressure Mean [Right Arm] 87 Blood Pressure Source Automatic Cuff Blood Pressure Source [Right Arm] Automatic Cuff Blood Pressure Position Supine Blood Pressure Position [Right Arm] Supine 02 Sat by Pulse Oximetry 93 L 94 L 94 L Oxygen Delivery Method Room Air Room Air Oxygen Flow Rate (LPM) 02/20/25 14:00 02/20/25 14:30 02/20/25 14:45 Temperature Temperature Source Pulse Rate 77 77 79 Pulse Rate [Right] Respiratory Rate 15 16 24 Blood Pressure 124/69 104/70 L 115/75 Blood Pressure [Right Arm] Blood Pressure Mean [Right Arm] Blood Pressure Source Blood Pressure Source [Right Arm] Blood Pressure Position Blood Pressure Position [Right Arm] 02 Sat by Pulse Oximetry 98 99 98 Oxygen Delivery Method Nasal Cannula Oxygen Flow Rate (LPM) 2 02/20/25 15:00 02/20/25 15:15 02/20/25 15:30 Temperature Temperature Source Pulse Rate 83 79 78 Pulse Rate [Right] Respiratory Rate 14 16 12 Blood Pressure 134/66 130/69 126/73 Blood Pressure [Right Arm] Blood Pressure Mean [Right Arm] Blood Pressure Source Blood Pressure Source [Right Arm] Blood Pressure Position Blood Pressure Position [Right Arm] 02 Sat by Pulse Oximetry 99 100 98 Oxygen Delivery Method Nasal Cannula Nasal Cannula Nasal Cannula Oxygen Flow Rate (LPM) 2 2 2 02/20/25 16:00 02/20/25 16:15 02/20/25 16:30 Temperature Temperature Source Pulse Rate 85 85 Pulse Rate [Right] Respiratory Rate 15 14 13 Blood Pressure 129/68 128/69 131/72 Blood Pressure [Right Arm] Blood Pressure Mean [Right Arm] Blood Pressure Source Blood Pressure Source [Right Arm] Blood Pressure Position Blood Pressure Position [Right Arm] 02 Sat by Pulse Oximetry 98 98 98 Oxygen Delivery Method Nasal Cannula Nasal Cannula Nasal Cannula Oxygen Flow Rate (LPM) 2 2 2 02/20/25 16:45 02/20/25 17:00 02/20/25 17:15 Temperature Temperature Source Pulse Rate 83 79 83 Pulse Rate [Right] Respiratory Rate 14 14 15 Blood Pressure 134/74 121/69 121/72 Blood Pressure [Right Arm] Blood Pressure Mean [Right Arm] Blood Pressure Source Blood Pressure Source [Right Arm] Blood Pressure Position Blood Pressure Position [Right Arm] 02 Sat by Pulse Oximetry 95 96 96 Oxygen Delivery Method Nasal Cannula Nasal Cannula Nasal Cannula Oxygen Flow Rate (LPM) 2 2 2 Lab Data Lab Results 02/20/25 14:05: SARS-CoV-2 (PCR) Not detected, Influenza A Untype (PCR) Not detected, Influenza Type B (PCR) Not detected 02/20/25 14:40: WBC 16.2 H, RBC 4.67, Hgb 12.3 L, Hct 39.7 L, MCV 85.0, MCH 26.3 L, MCHC 31.0 L, RDW 15.0, Plt Count 273, MPV 9.6, Neut % (Auto) 77.4, Lymph % (Auto) 10.2, [place] % (Auto) 10.2 H, Eos % (Auto) 1.3, Baso % (Auto) 0.1, Neut # (Auto) 12.5 H, Lymph # (Auto) 1.7, [place] # (Auto) 1.7 H, Eos # (Auto) 0.2, Baso # (Auto) 0.0, Total Counted 100, Neutrophils % (Manual) 63, Band Neutrophils % 1.0, Lymphocytes % (Manual) 22, Monocytes % (Manual) 11 H, Eosinophils % (Manual) 3, Nucleated RBCs 1, Platelet Estimate Normal, RBC Morphology Normal, D -Dimer 7.52 H, Sodium 132 L, Potassium 5.1, Chloride 96 L, Carbon Dioxide 29, Anion Gap 12.1, BUN 67 H, Creatinine 2.20 H, Estimated Creat Clear 30, Estimated GFR 30 L, Est GFR ( Amer) 36 L, Glucose 188 H, Calcium 9.2, Magnesium 2.3, Total Bilirubin 0.6, AST 30, ALT 19, Alkaline Phosphatase 110, Total Protein 6.7, Albumin 3.8, Globulin 2.9, Albumin/Globulin Ratio 1.3, Lipase 23 02/20/25 14:40 02/20/25 14:40 Orders (Tests/Meds): ED MEDICATIONS Generic Name Dose Route Start Last Admin Trade Name Freq PRN Reason Stop Dose Admin Hydrocodone Bitart/Acetaminophen 1 tab 02/20/25 18:57 Hydrocodone/Apap 5/325 Mg Tablet PO 03/22/25 18:56 Q4HP PRN Moderate to Severe Pain (4-10) Buspirone HCl 7.5 mg 02/20/25 21:00 Buspirone Hcl 5 Mg Tablet PO 03/22/25 20:59 BID MAJOR Carvedilol 25 mg 02/20/25 21:00 Carvedilol 25mg Tablet PO 03/22/25 20:59 BID MAJOR Gabapentin 300 mg 02/20/25 21:00 Gabapentin 300mg Capsule PO 03/22/25 20:59 BID [facility] Heparin Sodium (Porcine) 5,000 unit 02/20/25 21:00 Heparin Sodium 5,000 Unit/Ml Vial SUBCUT 03/22/25 20:59 TID [facility] Piperacillin Sod/Tazobactam 100 mls @ 200 mls/hr 02/20/25 18:45 Sod 4.5 gm/ Sodium Chloride IV 03/02/25 18:44 Q12H [facility] Azithromycin 500 mg/ Sodium 250 mls @ 250 mls/hr 02/20/25 19:00 Chloride IV 03/02/25 18:59 Q24H [facility] Nicotine 21 mg 02/20/25 18:45 Nicotine 21mg/24hr Patch TD 03/22/25 18:44 DAILYP PRN Nicotine Cravings Nystatin 500,000 unit 02/20/25 21:00 Nystatin Susp 500,000 Units/5ml Udc PO 03/22/25 20:59 QID [facility] Pantoprazole Sodium 40 mg 02/20/25 21:00 Pantoprazole 40mg Tablet PO 03/22/25 20:59 HS [facility] Discontinued Medications Generic Name Dose Route Start Last Admin Trade Name Freq PRN Reason Stop Dose Admin Ceftriaxone Sodium 2 gm/ 100 mls @ 200 mls/hr 02/20/25 17:15 Sodium Chloride IV 03/02/25 17:14 Q24H [facility] Iopamidol 70 ml 02/20/25 15:46 02/20/25 15:46 Iopamidol-370 (76%);100ml Bottle IV 02/20/25 15:47 70 ml ONCE ONE Administration Methylprednisolone Sodium Succinate 125 mg 02/20/25 13:31 02/20/25 14:42 Methylprednisolone Sod Succ 125mg Vial IV 02/20/25 13:32 125 mg ONCE ONE Administration Morphine Sulfate 4 mg 02/20/25 18:07 02/20/25 18:12 Morphine 4mg/Ml Syringe IV 02/20/25 18:08 4 mg ONCE ONE Administration Nystatin 500,000 unit 02/20/25 18:41 Nystatin Susp 500,000 Units/5ml Udc PO 02/20/25 18:42 ONCE ONE Ondansetron HCl 4 mg 02/20/25 18:07 02/20/25 18:11 Ondansetron 4mg/2ml Vial IV 02/20/25 18:08 4 mg ONCE ONE Administration Orphenadrine Citrate 60 mg 02/20/25 13:31 02/20/25 14:44 Orphenadrine Citrate 60mg/2ml Vial IV 02/20/25 13:32 60 mg ONCE ONE Administration Sodium Chloride 50 ml 02/20/25 15:46 02/20/25 15:46 0.9 % Sodium Chloride 50 Ml Vial IV 02/20/25 15:47 50 ml ONCE ONE Administration Sodium Chloride 10 ml 02/20/25 15:46 02/20/25 15:46 Sodium Chloride 0.9% 10ml Syr (Rad Only) IV 02/20/25 15:47 10 ml ONCE ONE Administration ORDERS Category Date Time Status CT lumbar spine wo con Stat Cat Scan 02/20/25 13:31 Completed CTA Chest [CT angio chest PE protocol] Stat Cat Scan 02/20/25 15:23 Completed Chest XR -- portable [XR chest portable] Stat Exams 02/20/25 13:31 Completed CBC [Complete Blood Count Auto Diff] Stat Lab 02/20/25 14:40 Completed Complete Blood Count Auto Diff AMLAB Lab 02/21/25 06:00 Ordered Comprehensive Metabolic Panel AMLAB Lab 02/21/25 06:00 Ordered Comprehensive Metabolic Panel Stat Lab 02/20/25 14:40 Completed D-Dimer Stat Lab 02/20/25 14:40 Completed Lipase Stat Lab 02/20/25 14:40 Completed Magnesium AMLAB Lab 02/21/25 06:00 Ordered Magnesium Stat Lab 02/20/25 14:40 Completed Rapid PCR Covid and Flu A/B Stat Lab 02/20/25 14:05 Completed Urinalysis and Microscopic Stat Lab 02/20/25 13:33 Ordered Medical Decision Narrative: patient is a 69-year-old male presenting to the emergency department for evaluation of left low back pain. Patient is hemodynamically stable and nontoxic-appearing upon arrival, afebrile. Differential diagnosis includes musculoskeletal injury, old injury, among others. Workup will be conducted with hematologic labs, specific imaging. Initial inventions include crystalloid bolus, analgesics, antibiotics. Initial workup reviewed by me hematologic labs are remarkable for elevated white count of 16.2, dimer of 7.52. I did a CTA which revealed a new mass and possible obstructive pneumonia, please see full radiology report. Discussed with patient and daughter. Daughter would like for patient to be admitted here at [facility]. Patient does not want to do any interventions for his cancer. I initially wanted them to go to for after I saw with the CT lumbar spine that showed lytic lesions with metastatic disease. I discussed this with patient and daughter. They do not want to go to for full workup. Patient did agree to stay here. I discussed with them that we do not have inpatient cancer workup here. Patient does have a white count and postobstructive pneumonia. We can treat with antibiotics. In fact I have already started ceftriaxone. I discussed with Dr. Auguste who came down and talked to the patient and daughter. He ended up excepting patient for admission and possible bronc on Thursday. Critical Care Critical Care Time Critical Care Time: No
--- OUTSIDE RECORDS SUMMARY | 2025-02-20 13:44 | XMS_ITS | Clinical Summary ---
Author Organization [facility] Address [address] [place] [address] Care Team Providers Care Board Of Directors Name Role Phone Shankar Raya MD Primary Care Provider + [phone] Allergies No known active allergies Medications DULoxetine [...] syrup Take by mouth. Ac tive pancrelipase, Fko-Fbjq-Lrha, (Zenpep) 24960-27087 units capsule delayed-releas e particles capsule Take [...] Description 02/10/2025 10:40 AM EDT Office Visit [facility] [address] [place] [id number] Ira Neely APRN CKD (chronic kidney disease) stage 4, GFR 15-29 ml/min (CMS/HCC) (Primary Dx); Essential hypertension; Diabetes mellitus due to underlying condition with diabetic chronic kidney disease, unspecified CKD stage, unspecified whether roasterman insulin use ([facility]); Chronic kidney disease-mineral and bone disorder; Anemia [...] Description 06/23/2025 10:40 AM EST Office Visit [facility] [address] [place] [phone] Ira Neely, FOOD PHOTOGRAPHER [address] [address] Health Maintenance Due Date Last [...] 05/15/2018 [facility]-Abdominal Aortic Aneurysm (AAA) Screening 2020 [id number] Vaccine (2 - 2024- season) 2025 10/05/2020 [...] to complete this topic Insurance currently at [facility] [place] [id number] MEDICARE [place]ICAID[place] Care Teams Board Of Directors Relationship Specialty Start Date End Date Shankar Raya MD [address] [place], [place] [address] PCP - General 10/12/20
--- NOTE | 2025-02-20 13:51 | ECG_ITS ---
APPROVED REPORT Exam: Resting ECG HR:80 bpm ECG Measurements Heart Rate 80 AXES AZ 240 P 81 QRSd 83 QRS 83 QT 333 T 91 QTc 369 Conclusion SINUS RHYTHM WITH FIRST DEGREE AV BLOCK SEPTAL MYOCARDIAL INFARCTION , PROBABLY OLD [40+ ms Q WAVE IN V1/V2] ABNORMAL ECG Electronically signed by : OMAR OWENS, 02/23/2025 09:28:25
[2025-02-20 14:10] LABS: Coronavirus 19, PCR Not Detected (NotDetected); Influenza A, PCR Not Detected (NotDetected); Influenza B, PCR Not Detected (NotDetected)
[2025-02-20] MEDS: METHYLPREDNISOLONE SOD SUCC 125MG VIAL 125 MG IV (14:42)
[2025-02-20] MEDS: ORPHENADRINE CITRATE 60MG/2ML VIAL 60 MG IV (14:44)
[2025-02-20 14:55] LABS: Hematocrit 39.7 % (42.0-52.0); Hemoglobin 12.3 g/dL (14.1-18.0); Immature Granulocytes % 0.8 %; Mean Corpuscular HGB Conc 31.0 g/dL (31.8-35.4); Mean Corpuscular Hemoglobin 26.3 pg (27.0-31.2); Mean Corpuscular Volume 85.0 fl (80-94); Nucleated Red Blood Cells % 0 %; Platelet Count 273 K/mm3 (142-424); Red Blood Count 4.67 M/mm3 (4.60-6.20); Red Cell Distribution Width-SD 46.6 fL; White Blood Count 16.2 K/mm3 (4.8-10.8)
[2025-02-20 15:05] LABS: Albumin Level 3.8 g/dl (3.5-5.0); Chloride 96 mmol/L (98-107); Potassium 5.1 mmoL/L (3.5-5.1); Sodium 132 mmol/L (136-145)
[2025-02-20 15:08] LABS: Alanine Aminotransferase 19 U/L (12-78); Albumin/Globulin Ratio 1.3 (1.1-1.8); Alkaline Phosphatase 110 U/L (38-126); Anion Gap 12.1 mEq/L (5-15); Aspartate Amino Transferase 30 U/L (17-59); Bilirubin,Total 0.6 mg/dl (0.2-1.3); Blood Urea Nitrogen 67 mg/dl (9-20); Calcium 9.2 mg/dl (8.4-10.2); Carbon Dioxide 29 mmol/L (22.0-30.0); Creatinine Clearance Estimated 30 mL/min (50-200); Creatinine,Serum 2.20 mg/dl (0.66-1.25); Estimated Glomerular Filt Rate 30 ml/min (>60); GFR (African American) 36 ML/MIN (>60); Globulin 2.9 g/dL (1.3-3.2); Glucose 188 mg/dl (74-100); Lipase 23 U/L (23-300); Magnesium 2.3 mg/dl (1.6-2.3); Total Protein,Serum 6.7 g/dl (6.3-8.2)
[2025-02-20 15:12] LABS: D-Dimer 7.52 ug/mL (0.0-0.5)
[2025-02-20 15:19] LABS: RBC Morphology Normal; Total Cells Counted 100
--- NOTE | 2025-02-20 15:23 | CT_ITS ---
FINAL REPORT TECHNIQUE: Axial imaging of the chest is obtained after the administration of contrast. 3-D MIP reformatted images were also obtained and reviewed per PE protocol. CLINICAL HISTORY: dimer COMPARISON: 02/12/2025 FINDINGS: The pulmonary arteries are well filled. There is no evidence of pulmonary embolus. There is no aortic dissection. Heart size is normal. There is no axillary lymphadenopathy. There is been no change in the large anterior mediastinal mass. No change in multiple mediastinal and left hilar lymph nodes. There is a small left pleural effusion which has increased in size since previous exam. No pericardial effusion. There are changes of emphysema. Stable left upper lobe ground glass opacities are noted. Left upper lobe pulmonary nodules are stable. There is a right lower lobe nodule on series 5 image 98 measuring 6 mm not seen on the recent exam. Right upper lobe pulmonary nodule on series 5 image 36 is not changed. Limited evaluation of the upper abdomen demonstrates no acute findings. There are pancreatic calcifications consistent with chronic pancreatitis.. T12 compression fracture is stable. There are no new or additional osseous abnormalities. IMPRESSION: No evidence of pulmonary embolism or aortic dissection. Stable anterior mediastinal mass and extensive lymphadenopathy. New 6 mm right lower lobe nodule could be infectious or inflammatory. Otherwise, stable findings in the chest. Reviewed, Interpreted and Dictated by Cinthya Wong MD Transcribed by Lauryn Chisholm Authenticated and [facility]
[2025-02-20] MEDS: 0.9 % SODIUM CHLORIDE 50 ML VIAL IV (15:46)
[2025-02-20] MEDS: IOPAMIDOL-370 (76%);100ML BOTTLE 70 ML IV (15:46)
[2025-02-20] MEDS: SODIUM CHLORIDE 0.9% 10ML SYR (RAD ONLY) 10 ML IV (15:46)
--- NOTE | 2025-02-20 17:15 | PC.NURSE ---
called RAD to power share to [facility] at this time
[2025-02-20] MEDS: ONDANSETRON 4MG/2ML VIAL 4 MG IV ×2 (18:11→22:20)
[2025-02-20] MEDS: MORPHINE 4MG/ML SYRINGE 4 MG IV (18:12)
--- NOTE | 2025-02-20 18:30 | PC.NURSE ---
Dr. Auguste at pts bedside.
--- NOTE | 2025-02-20 18:47 | EXP.HP ---
History of Present Illness *Admission Date: 02/20/25 *Reason for visit:: back pain, shortness of breath *History of present illness: Mr. Rivero is a 69-year-old male who was just discharged on the due to pneumonia and new diagnosis of left lung mass. Plan for outpatient bronchoscopy. Completed his course of Levaquin. Unfortunately has had increased cough and shortness of breath along with back pain since discharge. On presentation to the ER today, was found to be hypoxic and started on nasal cannula oxygen. Workup positive for white count of 16. Imaging of chest abdomen and pelvis showed new suspicious pathologic fracture of T12 and spiculated lesion of L3. Both concerning for metastatic disease. Has persistent left upper lobe pneumonia. [facility] his oxygen saturation was dropping to the 80s. Unclear how long his back pain has been bothering him. Patient was initiated on antibiotics in the ER. Medicine consulted for admission and discussion with family about goals of care. To the ER to evaluate the patient. Daughter is at bedside. Patient complaining of back pain. States he has had a cough that is questionably productive since last admission. No nausea or vomiting. Tolerating p.o. intake. Discussed that we do not have the capability to do a bronchoscopy at this time. Patient states he does not want to do any treatments for his lung mass. I discussed with patient and daughter that if he does not want to pursue treatment, does not make sense for us to do workup with invasive bronchoscopy and biopsies. She asked about PET scan, informed her that this would just show extent of disease and not type. Discussed that she wants her dad to stay comfortable. Just does not want her to hurt. Discussed initiating antibiotics for pneumonia and reevaluating him in the next day or 2 his response. Considering hospice consult if patient does not want to pursue treatments. They are open to pursuing this route. [facility] Disclaimer: The information contained in this section may have been updated after the patient was seen, as this information can be updated by other users. Medical History Hilar lymphadenopathy Lung mass Encounter for special screening examination for neoplasm of respiratory organ Mitral regurgitation SOB (shortness of breath) T12 compression fracture Letaw-zs-jgbeqzs kidney injury GERD (gastroesophageal reflux disease) Adult failure to thrive Fall Acute pain of left hip Acute hyperkalemia [place] (acute kidney injury) Altered mental status Prostate cancer COPD mixed type Neuropathy Frequent falls Abnormal computerized axial tomography of chest Tobacco abuse Smoking greater than 30 pack years Dyspnea on exertion Pulmonary emphysema Cavitary lesion of lung Lung abscess COVID COVID CKD (chronic kidney disease) Chronic pancreatitis due to chronic alcoholism Hyponatremia Pneumonia COPD (chronic obstructive pulmonary disease) Asthma Alcohol abuse Anxiety Depression Arthritis Irritable bowel syndrome (IBS) History of gastroesophageal reflux (GERD) Diabetes mellitus, type 2 Hypertension Hyperlipidemia Colon cancer Pneumonia Hypomagnesemia Hyponatremia Chronic pancreatitis Protein-calorie malnutrition, moderate Acute alcoholic pancreatitis Alcohol withdrawal Illiteracy Transaminitis Type 2 diabetes mellitus Macrocytic anemia Protein-calorie malnutrition, mild Acute renal failure Chronic alcohol abuse [place] (acute kidney injury) Polysubstance abuse Acute pancreatitis Alcoholic pancreatitis Alcoholism HTN (hypertension) COPD (chronic obstructive pulmonary disease) Hx of malignant neoplasm of colon Tobacco use disorder Surgical History History of cataract surgery S/P TURP History of colon resection History of colonoscopy Hx of prostatectomy Family History Mother Family history of diabetes mellitus type II Social History (Updated 02/20/25 @ 21:36 by Marleny Mccallum RN) Smoking Status: Current every day smoker tobacco type: cigarettes packs per day: 1 years smoked: 54 quit status: has quit before second hand exposure: Yes alcohol intake: former counseling provided: provider counseling substance use type: marijuana current occupational status: disabled Travel in the last 8 weeks?: None household members: none housing: apartment lives independently: Yes (home health comes twice a week ) marital status: current occupational exposures/hazards: No caffeine: Yes (coffee) physical activity: none do you feel safe at home: Yes Other Medical History Have you received the Flu Vaccine for this season: No Have you received the Pneumonia Vaccine: No Review of Systems Review of Systems Review of systems (narrative): 14 point review of systems performed, pertinent positives and negatives as per HPI Meds Home Medications and Allergies Home Medications ?Medication ?Instructions ?Recorded ?Confirmed ?Type fluticasone fur. 200 mcg-umeclid 1 inh inhalation DAILY 05/06/23 02/12/25 History 62.5 mcg-vilant 25 mcg inhalat.powder (Trelegy Ellipta) htdrue-iezkwzyi-[id number] 1 cap PO TID 05/06/23 02/12/25 History 10,000-32,000-42,000 unit capsule,delayed rel (Zenpep) simvastatin 40 mg tablet 40 mg PO HS 05/06/23 02/12/25 History acetaminophen 500 mg tablet 500 mg PO Q4HP PRN pain/fever 07/22/23 02/12/25 History gabapentin 300 mg capsule 300 mg PO BID 30 days #60 caps 03/28/24 02/12/25 Rx carvedilol 25 mg tablet 25 mg PO BID 30 days #60 tabs 04/10/24 02/12/25 Rx dapagliflozin propanediol 10 mg 10 mg PO DAILY #30 tabs 04/19/24 02/12/25 Rx tablet (Farxiga) diltiazem HCl 120 mg 120 mg PO HS 11/17/24 02/12/25 History tablet,extended release 24 hr duloxetine 60 mg capsule,delayed 60 mg PO DAILY 11/17/24 02/12/25 History release losartan 100 1 tab PO DAILY #30 tabs 11/17/24 02/12/25 Rx mg-hydrochlorothiazide 25 mg tablet pantoprazole 40 mg tablet,delayed 40 mg PO DAILY 01/17/25 02/12/25 History release oxybutynin chloride 10 mg 10 mg PO DAILY 30 days #30 tabs 01/23/25 02/12/25 Rx tablet,extended release 24 hr dextromethorphan-guaifenesin 20 20 ml PO Q12HP PRN Cough 02/03/25 02/12/25 History mg-200 mg/15 mL oral liquid melatonin 3 mg capsule 9 mg PO HS PRN Sleep 02/03/25 02/12/25 History propylene glycol 0.6 % eye drops 1 drp Eye-Both TID 02/03/25 02/12/25 History (Systane Balance) albuterol sulfate 90 mcg/actuation 2 inh inhalation Q4RT 02/12/25 02/12/25 History aerosol inhaler (Ventolin HFA) buspirone 7.5 mg tablet 7.5 mg PO BID 02/12/25 02/12/25 History prednisone 20 mg tablet 40 mg PO DAILY 02/12/25 02/12/25 History aspirin 81 mg chewable tablet 81 mg PO DAILY 30 days #30 tabs 02/14/25 Rx levofloxacin 750 mg tablet 750 mg PO Q48H 3 days #2 tabs 02/14/25 Rx New Prescriptions to Start Prescriptions: Allergies Allergy/AdvReac Type Severity Reaction Status Date / Time No Known Allergies Allergy Verified 02/03/25 11:05 Exam Data for Last 24 hours Vital signs and Labs for Last 24 Hours: Temp Pulse Resp BP Pulse Ox O2 Del Method O2 Flow Rate 98.5 F 83 15 121/72 96 Nasal Cannula 2 02/20/25 13:50 02/20/25 17:15 02/20/25 17:15 02/20/25 17:15 02/20/25 17:15 02/20/25 17:15 02/20/25 17:15 Laboratory Results - last 24 hr 02/20/25 14:05: SARS-CoV-2 (PCR) Not detected, Influenza A Untype (PCR) Not detected, Influenza Type B (PCR) Not detected 02/20/25 14:40: WBC 16.2 H, RBC 4.67, Hgb 12.3 L, Hct 39.7 L, MCV 85.0, MCH 26.3 L, MCHC 31.0 L, RDW 15.0, Plt Count 273, MPV 9.6, Neut % (Auto) 77.4, Lymph % (Auto) 10.2, Carver % (Auto) 10.2 H, Eos % (Auto) 1.3, Baso % (Auto) 0.1, Neut # (Auto) 12.5 H, Lymph # (Auto) 1.7, Carver # (Auto) 1.7 H, Eos # (Auto) 0.2, Baso # (Auto) 0.0, Total Counted 100, Neutrophils % (Manual) 63, Band Neutrophils % 1.0, Lymphocytes % (Manual) 22, Monocytes % (Manual) 11 H, Eosinophils % (Manual) 3, Nucleated RBCs 1, Platelet Estimate Normal, RBC Morphology Normal, D-Dimer 7.52 H, Sodium 132 L, Potassium 5.1, Chloride 96 L, Carbon Dioxide 29, Anion Gap 12.1, BUN 67 H, Creatinine 2.20 H, Estimated Creat Clear 30, Estimated GFR 30 L, Est GFR ( Amer) 36 L, Glucose 188 H, Calcium 9.2, Magnesium 2.3, Total Bilirubin 0.6, AST 30, ALT 19, Alkaline Phosphatase 110, Total Protein 6.7, Albumin 3.8, Globulin 2.9, Albumin/Globulin Ratio 1.3, Lipase 23 I & O for Last 24 hours: Intake & Output 02/17/25 02/18/25 02/19/25 02/20/25 23:59 23:59 23:59 23:59 Weight 67.585 kg Constitutional Constitutional: mild distress, thin, chronically ill appearing and cooperative *Routine HEENT Exam Head: Present normocephalic Eye: Present EOMI and PERRL ENT: Present mucous membranes moist Comments: Extensive thrush on tongue and soft palate *Routine Neck Exam Neck: Present supple; Absent lymphadenopathy *Routine Respiratory Exam Respiratory: Present prolonged expiratory phase, rhonchi, wheezes and crackles (Left upper lung field); Absent respiratory distress *Routine Cardiovascular Exam Cardiovascular: Present RRR *Routine Abdominal Exam Abdominal: Present soft and normoactive bowel sounds; Absent tenderness *Routine Rectal Exam Rectal:: deferred *Routine Genitalia Exam Genitalia:: deferred *Routine Extremities Exam Extremities: Absent cyanosis, clubbing or edema *Routine Skin Exam Skin: Present intact, pallor and warm; Absent rash *Routine Neurological Exam Neurological: Present alert, oriented X3 and moving all extremities Assessment and Plan *Assessment and plan (1) Postobstructive pneumonia: Status: Acute Category: Medical Code(s): J18.9 - Pneumonia, unspecified organism (2) Lung mass: Status: Acute Category: Medical Code(s): R91.8 - Other nonspecific abnormal finding of lung field (3) CKD (chronic kidney disease), stage IV: Status: Acute Category: Medical Code(s): N18.4 - Chronic kidney disease, stage 4 (severe) (4) Lytic lesion of bone on x-ray: Status: Acute Category: Medical Code(s): M89.8X9 - Other specified disorders of bone, unspecified site (5) Diabetes mellitus with diabetic neuropathy: Status: Acute Qualifiers: Diabetes mellitus 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 service representative insulin use: with jail use Diabetes mellitus type: type 2 Qualified Code(s): E11.40 - Type 2 diabetes mellitus with diabetic neuropathy, unspecified; Z79.4 - half-way (current) use of insulin Category: Medical Code(s): E11.40 - Type 2 diabetes mellitus with diabetic neuropathy, unspecified (6) Type 2 diabetes mellitus: Status: Chronic Qualifiers: Diabetes mellitus complication detail: with polyneuropathy Diabetes mellitus complication status: with neurologic complications Diabetes mellitus 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 service representative insulin use: without jail use Qualified Code(s): E11.42 - Type 2 diabetes mellitus with diabetic polyneuropathy Category: Medical Code(s): E11.9 - Type 2 diabetes mellitus without complications (7) HTN (hypertension): Status: Chronic Qualifiers: Hypertension type: essential hypertension Qualified Code(s): I10 - Essential (primary) hypertension Category: Medical Code(s): I10 - Essential (primary) hypertension (8) Tobacco abuse: Status: Chronic Category: Medical Code(s): Z72.0 - Tobacco use (9) COPD (chronic obstructive pulmonary disease): Status: Chronic Qualifiers: COPD type: unspecified COPD Qualified Code(s): J44.9 - Chronic obstructive pulmonary disease, unspecified Category: Medical Code(s): J44.9 - Chronic obstructive pulmonary disease, unspecified Plan Noah Rivero is a 69-year-old male with a medical history significant for chronic tobacco use, COPD on room air who presented with chest pain, shortness of breath who presented with current shortness of breath, productive cough, what appears to be pathologic fractures. Discussed case with ER physician, request admission for pain control and further goals of care discussions along with treatment of pneumonia. I agreed to admit for further care. Tolerating 2 L nasal cannula oxygen. Will transition to Zosyn and azithromycin for the time being. Previous sputum from last visit showed Proteus. Pansensitive. Problems addressed as follows: #Left upper lobe mass #Suspected malignancy # Postobstructive pneumonia # Low back pain secondary to pathologic T12 fracture and L3 spiculated lesion concerning for metastatic disease, suspected lung cancer ? Presented with shortness of breath, review of chest imaging shows stable left upper lung/mediastinal mass along with airspace disease in left upper lung concerning for postobstructive pneumonia. - Review of chart from last admissions shows culture positive for Proteus - Continue Zosyn 4.5 g every 12 hours and azithromycin 500 mg daily for broad antibiotic coverage. Repeat cultures pending - Per my review, lumbar CT shows fracture at T12. Likely pathologic. Has lytic and destructive lesion with pathologic fracture of L3. Both are concerning for metastatic disease. - CTA of the chest showed persistent anterior mediastinal mass and extensive lymphadenopathy. Has a new 6 mm right lower lobe nodule. Also has opacification left upper lobe consistent with pneumonia - White count elevated to 16. Hemoglobin 12.3. Repeat CBC, CMP, magnesium ordered for the morning. - Initiated codon 5 mg every 6 hours as needed for moderate to severe breakthrough pain #Hypertension: Continue Coreg 25 mg twice daily, aspirin 81 mg, atorvastatin 40 mg. #History of prostate cancer s/p prostatectomy #Overactive bladder ? Continue home oxybutynin 5 mg twice daily. ? Continue regular follow-ups Dr. Phillips. #COPD #Chronic tobacco use ? Continue home Trelegy 100. Continue DuoNebs every 6 hours. Will discontinue steroids as patient is much more stable. ? Advised tobacco cessation. Nicotine patch daily. #Chronic pancreatitis ? Continue home Creon. Stable. #Type 2 diabetes #Peripheral neuropathy ? Hemoglobin A1c 6.8% on 02/13. Continue home Lantus 25 units twice daily, Farxiga 10 mg. ? Continue home gabapentin 300 mg twice daily. - Sliding scale insulin with fingersticks ACHS #GERD: Continue home PPI. #Anxiety/depression: Continue home duloxetine 60 mg, BuSpar 7.5 mg twice daily. #CKD stage IIIb: Potassium 5.1, BUN elevated at 67 with creatinine 2.2. Slight bump from last admission. Glucose elevated at 188. Full code DVT prophylaxis: Heparin 5000 units TID regular diet
--- NOTE | 2025-02-20 18:59 | PC.NURSE ---
came down to see the pt. Antibiotics were ordered prior to but hadn't been given do to pt's IV being occluded. Dr. Auguste spoke with Fariha about changing the Antibiotics. Fariha changed to antibiotic orders. No antibiotics have been given at this time. residential carpenter notified.
--- NOTE | 2025-02-20 19:06 | PC.NURSE ---
HS notified of the need for a bed to admit the pt to the hospitalist.
--- NOTE | 2025-02-20 20:00 | PC.NURSE ---
Antibiotic due not in ER; patient going to floor; also no iv pumps available at this time. Passed along to rec. nurse that antibiotic not given in ER
[2025-02-20] MEDS: NYSTATIN SUSP 500,000 UNITS/5ML UDC 500000 UNIT PO (21:12)
[2025-02-20] MEDS: PANTOPRAZOLE 40MG TABLET 40 MG PO (21:13)
[2025-02-20] MEDS: HYDROCODONE/APAP 5/325 MG TABLET 1 TAB PO (21:13)
[2025-02-20] MEDS: HEPARIN SODIUM 5,000 UNIT/ML VIAL 5000 UNIT SUBCUT (21:13)
[2025-02-20] MEDS: CARVEDILOL 25MG TABLET 25 MG PO (21:13)
[2025-02-20] MEDS: GABAPENTIN 300MG CAPSULE 300 MG PO (21:13)
[2025-02-20] MEDS: PIPERACILLIN/TAZO 4.5 GM in 0.9 % SODIUM CHLORIDE 100 ML IV (21:14)
[2025-02-20 21:42] LABS: Microscopic, Urine URINE MICROSCOPIC (MICROSCOPIC)
[2025-02-20 21:43] LABS: Bilirubin,Urine Negative (Negative); Color,Urine YELLOW (Yellow); Glucose,Urine (UA) 3+ (Negative); Ketones,Urine Negative (Negative); Leukocyte Esterase,Urine Negative (Negative); PH,Urine 5.5 (5.0-8.5); Protein,Urine TRACE (Negative); Specific Gravity, Urine 1.015 (1.005-1.030); Urobilinogen,Urine 0.2 EU/dl (0.2)
[2025-02-20 21:56] LABS: Bacteria,Urine 1+ /lpf; WBC,Urine Occasional #/hpf (0-3)
[2025-02-20 21:56] LABS: POC Glucose,Bedside 301 gm/dL (70-110)
[2025-02-20] MEDS: AZITHROMYCIN 500 MG in 0.9 % SODIUM CHLORIDE 250 ML 250 MG IV (22:19)
[2025-02-21 04:00] VITALS: BP 128/73; PULSE 82; RESP 18; TEMP 36.8; O2SAT 90; BMI 22.6
[2025-02-21 05:51] LABS: POC Glucose,Bedside 300 gm/dL (70-110)
[2025-02-21] MEDS: humaLOG 100 UNITS/ML 10ML VIAL (SSI) SUBCUT ×3 (06:00→16:28)
[2025-02-21] MEDS: PIPERACILLIN/TAZO 4.5 GM in 0.9 % SODIUM CHLORIDE 100 ML IV ×2 (06:01→15:27)
[2025-02-21 06:11] LABS: Hematocrit 40.6 % (42.0-52.0); Hemoglobin 12.5 g/dL (14.1-18.0); Immature Granulocytes % 0.7 %; Mean Corpuscular HGB Conc 30.8 g/dL (31.8-35.4); Mean Corpuscular Hemoglobin 25.8 pg (27.0-31.2); Mean Corpuscular Volume 83.9 fl (80-94); Nucleated Red Blood Cells % 0 %; Platelet Count 273 K/mm3 (142-424); Red Blood Count 4.84 M/mm3 (4.60-6.20); Red Cell Distribution Width-SD 44.5 fL; White Blood Count 9.5 K/mm3 (4.8-10.8)
[2025-02-21 06:25] LABS: Albumin Level 3.6 g/dl (3.5-5.0); Chloride 96 mmol/L (98-107); Sodium 133 mmol/L (136-145)
[2025-02-21 06:26] LABS: Potassium 5.0 mmoL/L (3.5-5.1)
[2025-02-21 06:28] LABS: Alanine Aminotransferase 19 U/L (12-78); Albumin/Globulin Ratio 1.4 (1.1-1.8); Alkaline Phosphatase 115 U/L (38-126); Anion Gap 15.0 mEq/L (5-15); Aspartate Amino Transferase 24 U/L (17-59); Bilirubin,Total 0.4 mg/dl (0.2-1.3); Blood Urea Nitrogen 68 mg/dl (9-20); Calcium 9.1 mg/dl (8.4-10.2); Carbon Dioxide 27 mmol/L (22.0-30.0); Creatinine Clearance Estimated 28 mL/min (50-200); Creatinine,Serum 2.40 mg/dl (0.66-1.25); Estimated Glomerular Filt Rate 27 ml/min (>60); GFR (African American) 33 ML/MIN (>60); Globulin 2.6 g/dL (1.3-3.2); Glucose 292 mg/dl (74-100); Total Protein,Serum 6.2 g/dl (6.3-8.2)
[2025-02-21 06:29] LABS: Magnesium 2.6 mg/dl (1.6-2.3)
[2025-02-21 07:03] LABS: RBC Morphology Normal; Total Cells Counted 100
[2025-02-21 08:00] VITALS: BP 117/58; PULSE 70; RESP 19; TEMP 36.4; O2SAT 98
--- NOTE | 2025-02-21 08:48 | SW/DCPLANNER ---
Addendum entered by Pat Godoy 02/21/25 14:33: Per August [facility] can not admit this patient until IV antibiotics are completed. I have updated patient, patient's daughter, and Nyla w/ [facility]. Nyla is requesting that patient have a PICC or midline. Addendum entered by Pat Godoy 02/21/25 14:16: Per patient will need 6 additional days of IV antibiotics. Patient is agreeable to return to [facility], receive IV antibiotics and pursue Hospice services w/ [facility]. Nyla w/ [facility] agrees w/ this plan. I am waiting for August w/ [facility] to contact me back regarding [facility] admission during course of IV antibiotics vs waiting for Hospice admission once IV antibiotics are completed. CM will continue to follow up. Per patient will discharge back to [facility] today ICF level of care. Addendum entered by Pat Godoy 02/21/25 13:02: Per patient and daughter requested information has been faxed to [facility] for once patient returns to [facility]. Per daughter she prefer patient establish placement in [place] but refuses [place]. At this time Barbara galicia/ [facility] is in contact w/ daughter: currently full and [facility] does not have a Medicaid bed available. I will follow up w/ [facility] once patient information is reviewed. Discharge date is unknown at this time. Original Note: Patient currently resides at [facility] ICF level of care. I will continue to follow up w/ Nyla at [facility] during hospital admission. Discharge date is unknown at this time.
[2025-02-21] MEDS: CARVEDILOL 25MG TABLET 25 MG PO (09:40)
[2025-02-21] MEDS: HEPARIN SODIUM 5,000 UNIT/ML VIAL 5000 UNIT SUBCUT ×2 (09:40→14:45)
[2025-02-21] MEDS: BUSPIRONE HCL 5 MG TABLET 7.5 MG PO (09:40)
[2025-02-21] MEDS: GABAPENTIN 300MG CAPSULE 300 MG PO (09:40)
[2025-02-21] MEDS: NYSTATIN SUSP 500,000 UNITS/5ML UDC 500000 UNIT PO ×3 (09:40→16:26)
--- NOTE | 2025-02-21 09:53 | HMH.PTEV ---
Physical Therapy Evaluation Rehab PT IP Evaluation Start: 02/20/25 21:43 Freq: ONCE Status: Active Protocol: Document 02/21/25 09:49 REMINGTON (Rec: 02/21/25 09:53 REMINGTON [id number]) Subjective/History History History Per H&P: Mr. Rivero is a 69-year-old male who was just discharged on the due to pneumonia and new diagnosis of left lung mass. Plan for outpatient bronchoscopy. Completed his course of Levaquin. Unfortunately has had increased cough and shortness of breath along with back pain since discharge. On presentation to the ER today, was found to be hypoxic and started on nasal cannula oxygen. Workup positive for white count of 16. Imaging of chest abdomen and pelvis showed new suspicious pathologic fracture of T12 and spiculated lesion of L3. Both concerning for metastatic disease. Has persistent left upper lobe pneumonia. Reportedly at his [place] [facility] his oxygen saturation was dropping to the 80s. Unclear how long his back pain has been bothering him. Patient was initiated on antibiotics in the ER. Medicine consulted for admission and discussion with family about goals of care. Subjective Subjective Pt reports he lives at [facility]. Pt reports he is IND with mobility without AD use. [facility] How much help from another person do you currently need... Turning from your None back to your side while in a flat bed without using bedrails? Moving from lying on None back to sitting on the side of a flat bed without using bedrails? Moving to and from a None bed to a chair ( including a wheelchair)? Standing up from a None chair using your arms? (e.g., wheelchair, bedside chair) Walking in hospital None room? Climbing 3-5 steps A little with a railing? Mobility Score 23 Mobility Level [facility] Mobility Walk 25 feet or more Mobility Calculator Rehab PT IP Eval Objective Appearance Patient Behavior Appropriate,Cooperative Patient Orientation Person Difficulty following none instructions Speech Pattern Clear Ambulation Patient Able to Yes Ambulate Ambulation Observation IP General Gait No Deviations/Normal Pattern Observation Ambulation Distance 30 (feet) Ambulation Assistive None Device Ambulation Ability Independent Balance Ability to Arise Able, uses arms to help Sitting Balance Steady, safe Standing Balance Steady, wide stance Dynamic Sitting Good Balance Ability Dynamic Standing Good Balance Ability Transfers Bed Transfer Ability Independent Sit to Stand Bed Independent Transfer Ability Rehab PT IP prob,goals,plan Problems Date of Evaluation: 02/21/25 Rehab Potential Rehab Potential Innapropriate for Skilled Therapy Discharge Plan PT Discharge Plan Skilled acute care PT not indicated as pt is IND with mobility at this time. Eval Complexity Eval Charge Codes 48355 - Moderate Complexity PHYSICIAN CERTIFICATION: I certify the specified therapy services for Noah Rivero JR are required, authorized, and reviewed every 30 days.
[2025-02-21] MEDS: HYDROCODONE/APAP 5/325 MG TABLET 1 TAB PO (10:24)
[2025-02-21 10:47] LABS: POC Glucose,Bedside 440 gm/dL (70-110)
[2025-02-21] MEDS: DAPAGLIFLOZIN PROPANEDIOL 10 MG TABLET PO (11:41)
[2025-02-21] MEDS: ASPIRIN 81MG CHEWABLE TABLET 81 MG PO (11:41)
[2025-02-21] MEDS: LIPASE/PROTEASE/AMYLASE 1 EACH CAPSULE.DR PO ×2 (11:41→16:26)
[2025-02-21] MEDS: ONDANSETRON 4MG/2ML VIAL 4 MG IV (11:48)
[2025-02-21 12:27] VITALS: BMI 22.6
[2025-02-21] MEDS: FLUTICASONE/UMECLIDIN/VILANTER 200/62.5/25MCG INHALER 1 PUFF IH (13:12)
[2025-02-21] MEDS: SODIUM CHLORIDE 3% 15ML NEB 3 ML IH (13:13)
[2025-02-21 13:14] VITALS: PULSE 77; RESP 18
[2025-02-21] MEDS: ARTIFICIAL TEARS SOLN 15ML BOTTLE OP (14:46)
--- NOTE | 2025-02-21 15:12 | XR_ITS ---
FINAL REPORT TECHNIQUE: Single view chest CLINICAL HISTORY: PICC placement COMPARISON: 02/20/2025 FINDINGS: A single view of the chest was obtained. There has been interval placement of a left PICC with the tip in the SVC. The heart and mediastinum are within normal limits. There is a medial left upper lobe opacity which is unchanged. There is underlying emphysema. There is no pneumothorax. IMPRESSION: Blanche medial left upper lobe opacity. Interval placement of left PICC with the tip in the SVC. Reviewed, Interpreted and Dictated by Cinthya Wong MD Transcribed by Radha Mooney Authenticated and [facility]
--- NOTE | 2025-02-21 16:10 | EXP.DC.SUM ---
General Admission date:: 02/20/25 HPI HPI HPI: Mr. Rivero is a 69-year-old male who was just discharged on the due to pneumonia and new diagnosis of left lung mass. Plan for outpatient bronchoscopy. Completed his course of Levaquin. Unfortunately has had increased cough and shortness of breath along with back pain since discharge. On presentation to the ER today, was found to be hypoxic and started on nasal cannula oxygen. Workup positive for white count of 16. Imaging of chest abdomen and pelvis showed new suspicious pathologic fracture of T12 and spiculated lesion of L3. Both concerning for metastatic disease. Has persistent left upper lobe pneumonia. Reportedly at his [facility] his oxygen saturation was dropping to the 80s. Unclear how long his back pain has been bothering him. Patient was initiated on antibiotics in the ER. Medicine consulted for admission and discussion with family about goals of care. To the ER to evaluate the patient. Daughter is at bedside. Patient complaining of back pain. States he has had a cough that is questionably productive since last admission. No nausea or vomiting. Tolerating p.o. intake. Discussed that we do not have the capability to do a bronchoscopy at this time. Patient states he does not want to do any treatments for his lung mass. I discussed with patient and daughter that if he does not want to pursue treatment, does not make sense for us to do workup with invasive bronchoscopy and biopsies. She asked about PET scan, informed her that this would just show extent of disease and not type. Discussed that she wants her dad to stay comfortable. Just does not want her to hurt. Discussed initiating antibiotics for pneumonia and reevaluating him in the next day or 2 his response. Considering hospice consult if patient does not want to pursue treatments. They are open to pursuing this route. Hospital Course Hospital Course Hospital Course: Noah Rivero is a 69-year-old male with a medical history significant for chronic tobacco use, COPD on room air who presented with chest pain, shortness of breath who presented with current shortness of breath, productive cough, what appears to be pathologic fractures. Discussed case with ER physician, request admission for pain control and further goals of care discussions along with treatment of pneumonia. I agreed to admit for further care. Tolerating 2 L nasal cannula oxygen. Will transition to Zosyn and azithromycin for the time being. Previous sputum from last visit showed Proteus. Pansensitive. Problems addressed as follows: #Left upper lobe suspected lung malignancy, metastatic #Postobstructive pneumonia #Low back pain secondary to pathologic T12 fracture and L3 spiculated lesion concerning for metastatic disease, suspected lung cancer ? Presented with shortness of breath, review of chest imaging shows stable left upper lung/mediastinal mass along with airspace disease in left upper lung concerning for postobstructive pneumonia. - Review of chart from last admissions shows culture positive for Proteus, was discharged on levofloxacin but failed on this therapy. - Lumbar CT shows fracture at T12. Likely pathologic. Has lytic and destructive lesion with pathologic fracture of L3. Both are concerning for metastatic disease. - CTA of the chest showed persistent anterior mediastinal mass and extensive lymphadenopathy. Has a new 6 mm right lower lobe nodule. Also has opacification left upper lobe consistent with pneumonia. ? Clinically improved with IV Zosyn, patient feels much better today. Breathing easier, more energy, ambulating well. ? WBC also improved from 16-9.5, vital signs stable. No signs of sepsis. ? Discharge with IV Zosyn 4.5 g every 8 hours for 6 more days. Last dose given on 02/21/2025 at 3:27 PM. Thus, last dose will be on 02/27/2025. PICC line placed on day of discharge. ? Extensively rediscussed left upper lobe mass concerning for malignancy, suspected metastatic lesions and spine. Patient again reiterated that he does not want any workup or treatment for the suspected cancer. He has already had treatment for prostate, colon cancer and he does not want to undergo that again. As such, discussed with patient, daughter Iman Miguel, and case management and it was the decision of the patient to pursue hospice care. Hospice will be initiated on hospice at [facility] after course of IV Zosyn has been completed. ? Discharged with Sharon 5 mg every 6 hours as needed for chest, back pain from metastatic cancer. #Hypertension: ? Continue Coreg 25 mg twice daily, aspirin 81 mg, atorvastatin 40 mg. ? Held home losartan, hydrochlorothiazide as blood pressures are stable. BP currently 117/58. #History of prostate cancer s/p prostatectomy #Overactive bladder ? Continue home oxybutynin 5 mg twice daily. Following with Dr. Phillips at [facility]. #COPD #Chronic tobacco use ? Continue home Trelegy 100. ? Advised tobacco cessation. Nicotine patch daily. #Chronic pancreatitis ? Continue home Creon. Stable. #Type 2 diabetes #Peripheral neuropathy ? Hemoglobin A1c 6.8% on 02/13. Continue home Lantus 25 units twice daily, Farxiga 10 mg. ? Continue home gabapentin 300 mg twice daily. #GERD: Continue home PPI. #Anxiety/depression: Continue home duloxetine 60 mg, BuSpar 7.5 mg twice daily. #CKD stage IIIb: Creatinine 2.4, GFR 27. Stable. #Severe protein calorie malnutrition ? Nutrition consulted, provided counseling and recommendations. Exam Data for Last 24 hours Vital signs and Labs for Last 24 Hours: Temp Pulse Resp BP Pulse Ox O2 Del Method O2 Flow Rate 97.6 F 77 18 117/58 L 98 Nasal Cannula 3 02/21/25 08:00 02/21/25 13:14 02/21/25 13:14 02/21/25 08:00 02/21/25 08:00 02/21/25 14:51 02/21/25 14:51 Laboratory Results - last 24 hr 02/20/25 21:36: Urine Color Yellow, Urine Appearance Clear, Urine pH 5.5, Ur Specific [place] 1.015, Urine Protein Trace, Urine Glucose (UA) 3+, Urine Ketones Negative, Urine Blood Negative, Urine Nitrate Negative, Urine Bilirubin Negative, Urine Urobilinogen 0.2, Ur Leukocyte Esterase Negative, Urine RBC 3-5, Urine WBC Occasional, Urine Bacteria 1+ 02/20/25 21:47: POC Glucose 301 H* 02/21/25 05:34: WBC 9.5 D, RBC 4.84, Hgb 12.5 L, Hct 40.6 L, MCV 83.9, MCH 25.8 L, MCHC 30.8 L, RDW 14.6, Plt Count 273, MPV 9.8, Neut % (Auto) 93.9 H, Lymph % (Auto) 4.9 L, [place] % (Auto) 0.4 L, Eos % (Auto) 0.0 L, Baso % (Auto) 0.1, Neut # (Auto) 8.9 H, Lymph # (Auto) 0.5 L, [place] # (Auto) 0.0 L, Eos # (Auto) 0.0, Baso # (Auto) 0.0, Total Counted 100, Neutrophils % (Manual) 95 H, Lymphocytes % (Manual) 5 L, Platelet Estimate Normal, RBC Morphology Normal, Sodium 133 L, Potassium 5.0, Chloride 96 L, Carbon Dioxide 27, Anion Gap 15.0, BUN 68 H, Creatinine 2.40 H, Estimated Creat Clear 28, Estimated GFR 27 L, Est GFR ( Amer) 33 L, Glucose 292 H D, Calcium 9.1, Magnesium 2.6 H D, Total Bilirubin 0.4, AST 24, ALT 19, Alkaline Phosphatase 115, Total Protein 6.2 L, Albumin 3.6, Globulin 2.6, Albumin/Globulin Ratio 1.4 02/21/25 05:44: POC Glucose 300 H 02/21/25 10:31: POC Glucose 440 H* I & O for Last 24 hours: Intake & Output 02/18/25 02/19/25 02/20/25 02/21/25 23:59 23:59 23:59 23:59 Intake Total 350 / 590 1040 / 1040 Output Total 350 / 350 0 / 0 Balance 0 / 240 1040 / 1040 Weight 67.585 kg 67.585 kg Constitutional Constitutional: no acute distress and chronically ill appearing *Routine HEENT Exam Head: Present normocephalic Eye: Present EOMI and PERRL ENT: Present mucous membranes moist *Routine Neck Exam Neck: Present supple; Absent lymphadenopathy *Routine Respiratory Exam Respiratory: Present wheezes; Absent CTA bilaterally *Routine Cardiovascular Exam Cardiovascular: Present RRR *Routine Abdominal Exam Abdominal: Present soft and normoactive bowel sounds; Absent tenderness *Routine Extremities Exam Extremities: Absent cyanosis, clubbing or edema *Routine Skin Exam Skin: Present warm; Absent rash *Routine Neurological Exam Neurological: Present alert Results Data Completed and Pending Labs on day of discharge: Labs from last 24 hours 02/21/25 02/21/25 02/21/25 10:31 05:44 05:34 WBC 9.5 D RBC 4.84 Hgb 12.5 L Hct 40.6 L MCV 83.9 MCH 25.8 L MCHC 30.8 L RDW 14.6 Plt Count 273 MPV 9.8 Neut % (Auto) 93.9 H Lymph % (Auto) 4.9 L [place] % (Auto) 0.4 L Eos % (Auto) 0.0 L Baso % (Auto) 0.1 Neut # (Auto) 8.9 H Lymph # (Auto) 0.5 L [place] # (Auto) 0.0 L Eos # (Auto) 0.0 Baso # (Auto) 0.0 Total Counted 100 Neutrophils % (Manual) 95 H Lymphocytes % (Manual) 5 L Platelet Estimate Normal RBC Morphology Normal Sodium 133 L Potassium 5.0 Chloride 96 L Carbon Dioxide 27 Anion Gap 15.0 BUN 68 H Creatinine 2.40 H Estimated Creat Clear 28 Estimated GFR 27 L Est GFR ( Amer) 33 L Glucose 292 H D POC Glucose 440 H* 300 H Calcium 9.1 Magnesium 2.6 H D Total Bilirubin 0.4 AST 24 ALT 19 Alkaline Phosphatase 115 Total Protein 6.2 L Albumin 3.6 Globulin 2.6 Albumin/Globulin Ratio 1.4 Urine Color Urine Appearance Urine pH Ur Specific [place] Urine Protein Urine Glucose (UA) Urine Ketones Urine Blood Urine Nitrate Urine Bilirubin Urine Urobilinogen Ur Leukocyte Esterase Urine RBC Urine WBC Urine Bacteria 02/20/25 02/20/25 21:47 21:36 WBC RBC Hgb Hct MCV MCH MCHC RDW Plt Count MPV Neut % (Auto) Lymph % (Auto) [place] % (Auto) Eos % (Auto) Baso % (Auto) Neut # (Auto) Lymph # (Auto) [place] # (Auto) Eos # (Auto) Baso # (Auto) Total Counted Neutrophils % (Manual) Lymphocytes % (Manual) Platelet Estimate RBC Morphology Sodium Potassium Chloride Carbon Dioxide Anion Gap BUN Creatinine Estimated Creat Clear Estimated GFR Est GFR ( Amer) Glucose POC Glucose 301 H* Calcium Magnesium Total Bilirubin AST ALT Alkaline Phosphatase Total Protein Albumin Globulin Albumin/Globulin Ratio Urine Color Yellow Urine Appearance Clear Urine pH 5.5 Ur Specific [place] 1.015 Urine Protein Trace Urine Glucose (UA) 3+ Urine Ketones Negative Urine Blood Negative Urine Nitrate Negative Urine Bilirubin Negative Urine Urobilinogen 0.2 Ur Leukocyte Esterase Negative Urine RBC 3-5 Urine WBC Occasional Urine Bacteria 1+ DS: Diagnosis Discharge Diagnosis (1) Postobstructive pneumonia: Status: Acute Code(s): J18.9 - Pneumonia, unspecified organism (2) Lung mass: Status: Acute Code(s): R91.8 - Other nonspecific abnormal finding of lung field (3) CKD (chronic kidney disease), stage IV: Status: Acute Code(s): N18.4 - Chronic kidney disease, stage 4 (severe) (4) Lytic lesion of bone on x-ray: Status: Acute Code(s): M89.8X9 - Other specified disorders of bone, unspecified site (5) Diabetes mellitus with diabetic neuropathy: Status: Acute Code(s): E11.40 - Type 2 diabetes mellitus with diabetic neuropathy, unspecified Qualifiers: Diabetes mellitus prison insulin use: with prison use Diabetes mellitus type: type 2 Qualified Code(s): E11.40 - Type 2 diabetes mellitus with diabetic neuropathy, unspecified; Z79.4 - skilled nursing (current) use of insulin (6) Type 2 diabetes mellitus: Status: Chronic Code(s): E11.9 - Type 2 diabetes mellitus without complications Qualifiers: Diabetes mellitus complication detail: with polyneuropathy Diabetes mellitus complication status: with neurologic complications 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: without local intermodal truck driver use Qualified Code(s): E11.42 - Type 2 diabetes mellitus with diabetic polyneuropathy (7) HTN (hypertension): Status: Chronic Code(s): I10 - Essential (primary) hypertension Qualifiers: Hypertension type: essential hypertension Qualified Code(s): I10 - Essential (primary) hypertension (8) Tobacco abuse: Status: Chronic Code(s): Z72.0 - Tobacco use (9) COPD (chronic obstructive pulmonary disease): Status: Chronic Code(s): J44.9 - Chronic obstructive pulmonary disease, unspecified Qualifiers: COPD type: unspecified COPD Qualified Code(s): J44.9 - Chronic obstructive pulmonary disease, unspecified Meds Home Medications and Allergies Home Medications ?Medication ?Instructions ?Recorded ?Confirmed ?Type fluticasone fur. 200 mcg-umeclid 1 inh inhalation DAILY 05/06/23 02/20/25 History 62.5 mcg-vilant 25 mcg inhalat.powder (Trelegy Ellipta) [id number]-ihxqzoii-ytkqmji 1 cap PO TID 05/06/23 02/20/25 History 10,000-32,000-42,000 unit capsule,delayed rel (Zenpep) simvastatin 40 mg tablet 40 mg PO HS 05/06/23 02/20/25 History acetaminophen 500 mg tablet 500 mg PO Q4HP PRN pain/fever 07/22/23 02/20/25 History gabapentin 300 mg capsule 300 mg PO BID 30 days #60 caps 03/28/24 02/20/25 Rx carvedilol 25 mg tablet 25 mg PO BID 30 days #60 tabs 04/10/24 02/20/25 Rx dapagliflozin propanediol 10 mg 10 mg PO DAILY #30 tabs 04/19/24 02/20/25 Rx tablet (Farxiga) diltiazem HCl 120 mg 120 mg PO HS 11/17/24 02/20/25 History tablet,extended release 24 hr duloxetine 60 mg capsule,delayed 60 mg PO DAILY 11/17/24 02/20/25 History release pantoprazole 40 mg tablet,delayed 40 mg PO DAILY 01/17/25 02/20/25 History release oxybutynin chloride 10 mg 10 mg PO DAILY 30 days #30 tabs 01/23/25 02/20/25 Rx tablet,extended release 24 hr dextromethorphan-guaifenesin 20 20 ml PO Q12HP PRN Cough 02/03/25 02/20/25 History mg-200 mg/15 mL oral liquid melatonin 3 mg capsule 9 mg PO HS PRN Sleep 02/03/25 02/20/25 History propylene glycol 0.6 % eye drops 1 drp Eye-Both TID 02/03/25 02/20/25 History (Systane Balance) albuterol sulfate 90 mcg/actuation 2 inh inhalation Q4HP PRN 02/12/25 02/21/25 History aerosol inhaler (Ventolin HFA) Shortness Of Breath buspirone 7.5 mg tablet 7.5 mg PO BID 02/12/25 02/20/25 History aspirin 81 mg chewable tablet 81 mg PO DAILY 30 days #30 tabs 02/14/25 02/20/25 Rx insulin glargine 100 unit/mL (3 20 unit SQ DAILY 02/20/25 02/20/25 History mL) subcutaneous pen (Basaglar KwikPen U-100 Insulin) tirzepatide 7.5 mg/0.5 mL 7.5 mg SQ WEEKLY on thursday02/20/25 02/20/25 History subcutaneous pen injector (Madeleine) Piperacillin/Tazo [Zosyn 4.5gm 200 mls/hr IV Q8H 02/21/25 Rx vial] 4.5 gm hydrocodone 5 mg-acetaminophen 325 1 tab PO Q6HP PRN Moderate To 02/21/25 Rx mg tablet Severe Pain (4-10) 7 days #28 tabs losartan 100 1 tab PO DAILY /02/21/25 02/20/25 History mg-hydrochlorothiazide 25 mg tablet Held on 02/21/25. Instructions: Resume on 02/28/25. Blood pressures stable without this medication. multivitamin 1 tab PO DAILY 02/21/25 02/21/25 History New Prescriptions to Start Prescriptions: hydrocodone-acetaminophen Forrest Dominguez Piperacillin/Tazo [Zosyn 4.5gm vial] 4.5 gm 0.9 % Sodium Chloride [Sod Chloride 0.9% MB+ 100mL] 100 ml 200 mls/hr IV Q8H Allergies Allergy/AdvReac Type Severity Reaction Status Date / Time No Known Allergies Allergy Verified 02/03/25 11:05 Discharge Plan Disposition Patient Disposition: [facility] Condition: Fair Discharge Order Discharge Orders: Discharge Order (Routine); Ordered 02/21/25 Ordered By: Forrest Dominguez Follow up Plan Prescriptions/Medication Reconciliation: New hydrocodone-acetaminophen 5-325 mg Tablet 1 tab PO Q6HP PRN (Reason: Moderate To Severe Pain (4-10)) 7 Days Qty: 28 0RF Piperacillin/Tazo [Zosyn 4.5gm vial] 4.5 GM 0.9 % Sodium Chloride [Sod Chloride 0.9% MB+ 100mL] 100 ML 200 mls/hr IV Q8H Ordered By: Forrest Dominguez MD Last Taken: 02/21/25 15:27 200 mls/hr Continued diltiazem HCl 120 mg tablet extended release 24 hr 120 mg PO HS duloxetine 60 mg capsule,delayed release(DR/EC) 60 mg PO DAILY dapagliflozin propanediol [Farxiga] 10 mg tablet 10 mg PO DAILY Qty: 30 3RF melatonin 3 mg capsule 9 mg PO HS PRN (Reason: Sleep) Systane Balance 0.6 % drops 1 drp Eye-Both TID dextromethorphan-guaifenesin 20-200 mg/15 mL liquid 20 ml PO Q12HP PRN (Reason: Cough) pantoprazole 40 mg tablet,delayed release (DR/EC) 40 mg PO DAILY oxybutynin chloride 10 mg tablet extended release 24hr 10 mg PO DAILY 30 Days Qty: 30 0RF gabapentin 300 mg capsule 300 mg PO BID 30 Days Qty: 60 2RF simvastatin 40 mg tablet 40 mg PO HS Zenpep 10,000-32,000 -42,000 unit capsule,delayed release(DR/EC) 1 cap PO TID Patient Comments: TAKE ONE CAPSULE BY MOUTH THREE TIMES DAILY Trelegy Ellipta 200-62.5-25 mcg blister with device 1 inh INHALATION DAILY carvedilol 25 mg Tablet 25 mg PO BID 30 Days Qty: 60 0RF Rx Instructions: HOLD FOR SBP <100, DBP <60, OR HR < 60 buspirone 7.5 mg tablet 7.5 mg PO BID albuterol sulfate [Ventolin HFA] 90 mcg/actuation HFA aerosol inhaler 2 inh INHALATION Q4HP PRN (Reason: Shortness Of Breath) aspirin 81 mg Tablet,Chewable 81 mg PO DAILY 30 Days Qty: 30 0RF insulin glargine [Basaglar KwikPen U-100 Insulin] 100 unit/mL (3 mL) insulin pen 20 unit SQ DAILY Mounjaro 7.5 mg/0.5 mL Pen Injector 7.5 mg SQ WEEKLY multivitamin Tablet 1 tab PO DAILY acetaminophen 500 mg Tablet 500 mg PO Q4HP PRN (Reason: pain/fever) Held losartan-hydrochlorothiazide 100-25 mg tablet 1 tab PO DAILY Hold Instructions: Resume on 02/28/25. Blood pressures stable without this medication. Rx Instructions: HOLD FOR SBP <100, DBP <60, OR HR < 60 Discontinued tramadol 50 mg tablet 50 mg PO Q8HP PRN (Reason: Pain) Problem Reconciliation Problems Reviewed?: Yes Patient Discharge Instructions Patient Instructions: DI for Pneumonia -- Adult, DI for Shortness of Breath, DI for Pulmonary Nodule Print Language: Indian Providers Primary Care Provider: Garcia Melgar Admit Provider: Alphonso Auguste Attending Provider: Alphonso Auguste
[2025-02-21] MEDS: HYDROCODONE 10MG/APAP 325MG TAB 1 TAB PO (16:16)
--- NOTE | 2025-02-21 16:19 | EXP.EVENT.NO ---
GOC discussion Extensively rediscussed left upper lobe mass concerning for malignancy, suspected metastatic lesions and spine. Patient again reiterated that he does not want any workup or treatment for the suspected cancer. He is already had treatment for prostate, colon cancer and he does not want to undergo that again. As such, discussed with patient, daughter Julissa Miguel, and case management and it was the decision of the patient to pursue hospice care. Hosp[facility] will be initiated at [facility] after course of IV Zosyn has been completed.
[2025-02-21 16:25] LABS: POC Glucose,Bedside 362 gm/dL (70-110)
--- NOTE | 2025-02-21 17:30 | PC.NURSE ---
report called to [facility], patient being transported via personal vehicle.
== END 2025-02-21 17:19 ==
LOC: ER 18:52 → 2ND 19:20
PROVIDERS: Nurse Practitioner; Admitting Provider Internal Medicine Adolescent Medicine; Emergency Provider Student in an Organized Health Care Education/Training Program; PCP Family Medicine; Visit Provider Internal Medicine Adolescent Medicine
DX: J18.9 Pneumonia, unspecified organism (principal); R91.8 Other nonspecific abnormal finding of lung field; E11.42 Type 2 diabetes mellitus with diabetic polyneuropathy; E11.22 Type 2 diabetes mellitus with diabetic chronic kidney disease; I12.9 Hypertensive chronic kidney disease with stage 1 through stage 4 chronic kidney disease, or unspecified chronic kidney disease; M84.48XA Pathological fracture, other site, initial encounter for fracture; N18.4 Chronic kidney disease, stage 4 (severe); K21.9 Gastro-esophageal reflux disease without esophagitis; F41.9 Anxiety disorder, unspecified; F32.A Depression, unspecified; E43 Unspecified severe protein-calorie malnutrition; K86.1 Other chronic pancreatitis; N32.81 Overactive bladder; F17.210 Nicotine dependence, cigarettes, uncomplicated; I44.0 Atrioventricular block, first degree; J44.89 Other specified chronic obstructive pulmonary disease; E78.5 Hyperlipidemia, unspecified; J43.9 Emphysema, unspecified; Z68.22 Body mass index [BMI] 22.0-22.9, adult; Z90.79 Acquired absence of other genital organ(s); Z95.9 Presence of cardiac and vascular implant and graft, unspecified; Z85.46 Personal history of malignant neoplasm of prostate; Z85.038 Personal history of other malignant neoplasm of large intestine; Z79.4 Long term (current) use of insulin; Z79.85 Long-term (current) use of injectable non-insulin antidiabetic drugs; Z79.891 Long term (current) use of opiate analgesic; Z79.899 Other long term (current) drug therapy
CPT/HCPCS: 36410; 36415; 36569; 71045; 71275; 72131; 80053; 81001; 82962; 83690; 83735; 85007; 85025; 85378; 87636; 89220; 93005; 94640; 96365; 96367; 96372; 96375; 96376; 97162; 99285; C1751; G0378; J0456; J0696; J1644; J2270; J2360; J2405; J2543; J2919; J7050; Q9967

== ENCOUNTER 2025-02-24 06:02 | Day surgery (SDC) | payer MEDICARE, MEDICAID, SELFPAY ==
[2025-02-22 14:38] VITALS: BMI 23.4
[2025-02-24] VITALS (11 sets, daily range): BP systolic 118–138; BP diastolic 65–77; PULSE 82–95; RESP 15–20; TEMP 36.2–36.6; O2SAT 91–96; BMI 23.4
--- NOTE | 2025-02-24 07:17 | P.PNANES_ITS ---
[facility] Disclaimer: The information contained in this section may have been updated after the patient was seen, as this information can be updated by other users. Medical History Hilar lymphadenopathy Lung mass Encounter for special screening examination for neoplasm of respiratory organ Mitral regurgitation SOB (shortness of breath) T12 compression fracture Lrkng-oe-yjnuuic kidney injury GERD (gastroesophageal reflux disease) Adult failure to thrive Fall Acute pain of left hip Acute hyperkalemia [place] (acute kidney injury) Altered mental status Prostate cancer COPD mixed type Neuropathy Frequent falls Abnormal computerized axial tomography of chest Tobacco abuse Smoking greater than 30 pack years Dyspnea on exertion Pulmonary emphysema Cavitary lesion of lung Lung abscess COVID COVID CKD (chronic kidney disease) Chronic pancreatitis due to chronic alcoholism Hyponatremia Pneumonia COPD (chronic obstructive pulmonary disease) Asthma Alcohol abuse Anxiety Depression Arthritis Irritable bowel syndrome (IBS) History of gastroesophageal reflux (GERD) Diabetes mellitus, type 2 Hypertension Hyperlipidemia Colon cancer Pneumonia Hypomagnesemia Hyponatremia Chronic pancreatitis Protein-calorie malnutrition, moderate Acute alcoholic pancreatitis Alcohol withdrawal Illiteracy Transaminitis Type 2 diabetes mellitus Macrocytic anemia Protein-calorie malnutrition, mild Acute renal failure Chronic alcohol abuse [place] (acute kidney injury) Polysubstance abuse Acute pancreatitis Alcoholic pancreatitis Alcoholism HTN (hypertension) COPD (chronic obstructive pulmonary disease) Hx of malignant neoplasm of colon Tobacco use disorder Surgical History History of cataract surgery S/P TURP History of colon resection History of colonoscopy Hx of prostatectomy Family History Mother Family history of diabetes mellitus type II Social History (Updated 02/24/25 @ 06:22 by Clementine Fermin RN) Smoking Status: Current every day smoker tobacco type: cigarettes packs per day: 1 years smoked: 54 quit status: has quit before second hand exposure: Yes alcohol intake: former counseling provided: provider counseling substance use type: marijuana current occupational status: disabled Travel in the last 8 weeks?: None household members: none housing: apartment lives independently: Yes (home health comes twice a week ) marital status: current occupational exposures/hazards: No caffeine: Yes (coffee) physical activity: none do you feel safe at home: Yes Have you lived/traveled outside [place] in past 30 days?: No Contact w/someone who lives/traveled outside [place] past 30 days?: No Exposure to someone with infectious disease in past 14 days?: No Do you have a fever (greater than 100.4 F or 38 C)?: No Have you tested positive for COVID-19?: No Exposed to someone with COVID-19 in past 14 days?: No Do you have a sore throat?: No Do you have a cough?: No Do you have any weakness?: No Are you experiencing any nausea/vomitting?: No Do you have any diarrhea?: No Are you experiencing any unusual bleeding?: No Do you have any muscle aches/pain?: No Do you have any abdominal pain?: No Are you experiencing loss of taste or smell?: No [facility] Anesthesia Checklist Patient Identification Patient Identification: Arm Band and Verbal (Name & ) Structural Data Admitted From: Home Planned Operative Procedure/s: Bronchoscopy Consent for Planned Operative Procedure(s) Verified: Yes Verified Documents: Surgical Consent NPO Status Verified Time NPO: 00:00 Additional verifications Anesthesia Reactions: No Hx Blood Transfusions: No Blood Transfusion Reaction: No Airway Assessment Mallampati Score:: Class II C-Spine Mobility Assessed: Yes TMJ Mobility Assessed: Yes Dentition: Poor Dentition Neurological Assessment Level of Consciousness: Awake, Alert and Appropriate Hx Seizures: No Numbness or tingling in extremities: No Anesthesia Plan Anesthesia Risk discussed: Yes Anesthesia Plan: Verified ASA Class: IV Anesthesia Type: General
--- NOTE | 2025-02-24 10:30 | XR_ITS ---
FINAL REPORT CLINICAL HISTORY: ION BRONCH IN OR 11:50 fluoro time 274.53mgy FINDINGS: FLUOROSCOPY LESS THAN 1 HOUR HISTORY: Fluoroscopy guidance. FINDINGS: Fluoroscopic guidance was provided for bronchoscopy in the OR. A single spot film was obtained. A total of 11:50 minutes of fluoroscopy time were used. DAP: 274.53 mGy IMPRESSION: As above. Reviewed, Interpreted and Dictated by Cinthya Wong MD Transcribed by Lauryn Chisholm Authenticated and . [facility]
--- NOTE | 2025-02-24 11:34 | P.PNANES_ITS ---
[facility] Anesthesia Record Part I Anesthesia Record I Intake, IV Amount: 600 Hydration: Adequate Estimated blood loss (mL): 10 Urine output (mL): 0 Blood Pressure: 137/74 SaO2: 95 Pulse Rate: 88 Airway Patency: Patent Respiratory Rate: 18 Temperature: 97.8 F Patient is:: Awake, Mask O2 and Stable Stable to PACU at:: 11:40
--- NOTE | 2025-02-24 11:34 | EXP.ANES.CKL ---
[facility] Disclaimer: The information contained in this section may have been updated after the patient was seen, as this information can be updated by other users. Medical History Hilar lymphadenopathy Lung mass Encounter for special screening examination for neoplasm of respiratory organ Mitral regurgitation SOB (shortness of breath) T12 compression fracture Accgv-la-xeplyan kidney injury GERD (gastroesophageal reflux disease) Adult failure to thrive Fall Acute pain of left hip Acute hyperkalemia [place] (acute kidney injury) Altered mental status Prostate cancer COPD mixed type Neuropathy Frequent falls Abnormal computerized axial tomography of chest Tobacco abuse Smoking greater than 30 pack years Dyspnea on exertion Pulmonary emphysema Cavitary lesion of lung Lung abscess COVID COVID CKD (chronic kidney disease) Chronic pancreatitis due to chronic alcoholism Hyponatremia Pneumonia COPD (chronic obstructive pulmonary disease) Asthma Alcohol abuse Anxiety Depression Arthritis Irritable bowel syndrome (IBS) History of gastroesophageal reflux (GERD) Diabetes mellitus, type 2 Hypertension Hyperlipidemia Colon cancer Pneumonia Hypomagnesemia Hyponatremia Chronic pancreatitis Protein-calorie malnutrition, moderate Acute alcoholic pancreatitis Alcohol withdrawal Illiteracy Transaminitis Type 2 diabetes mellitus Macrocytic anemia Protein-calorie malnutrition, mild Acute renal failure Chronic alcohol abuse [place] (acute kidney injury) Polysubstance abuse Acute pancreatitis Alcoholic pancreatitis Alcoholism HTN (hypertension) COPD (chronic obstructive pulmonary disease) Hx of malignant neoplasm of colon Tobacco use disorder Surgical History History of cataract surgery S/P TURP History of colon resection History of colonoscopy Hx of prostatectomy Family History Mother Family history of diabetes mellitus type II Social History (Updated 02/24/25 @ 06:22 by Clementine Fermin RN) Smoking Status: Current every day smoker tobacco type: cigarettes packs per day: 1 years smoked: 54 quit status: has quit before second hand exposure: Yes alcohol intake: former counseling provided: provider counseling substance use type: marijuana current occupational status: disabled Travel in the last 8 weeks?: None household members: none housing: apartment lives independently: Yes (home health comes twice a week ) marital status: current occupational exposures/hazards: No caffeine: Yes (coffee) physical activity: none do you feel safe at home: Yes Have you lived/traveled outside [place] in past 30 days?: No Contact w/someone who lives/traveled outside [place] past 30 days?: No Exposure to someone with infectious disease in past 14 days?: No Do you have a fever (greater than 100.4 F or 38 C)?: No Have you tested positive for COVID-19?: No Exposed to someone with COVID-19 in past 14 days?: No Do you have a sore throat?: No Do you have a cough?: No Do you have any weakness?: No Are you experiencing any nausea/vomitting?: No Do you have any diarrhea?: No Are you experiencing any unusual bleeding?: No Do you have any muscle aches/pain?: No Do you have any abdominal pain?: No Are you experiencing loss of taste or smell?: No [facility] Anesthesia Checklist Additional verifications Anesthesia Reactions: No Hx Blood Transfusions: No Blood Transfusion Reaction: No
--- NOTE | 2025-02-24 11:39 | XR_ITS ---
FINAL REPORT CLINICAL HISTORY: post bronch chest xray COMPARISON: 02/21/2025 FINDINGS: A portable view of the chest was obtained. The heart is normal in size. There has been no change of the left PICC line. Worsening left upper lobe opacity could represent hemorrhage given recent bronchoscopy.. There is no pneumothorax.. IMPRESSION: Worsening left upper lobe opacity. Recommend follow-up. Reviewed, Interpreted and Dictated by Cinthya Wong MD Transcribed by Lauryn Chisholm Authenticated and [facility]
[2025-02-24 11:54] LABS: POC Glucose,Bedside 143 gm/dL (70-110)
--- NOTE | 2025-02-24 12:10 | P.PCN_ITS ---
Procedure: Date: 02/24/25 Patient Date of :: 1955 Procedure Performed:: Navigational bronchoscopy, airway examination, bronchoalveolar lavage, trans bronchial fine-needle aspiration, trans bronchial brushing and trans bronchial biopsy of lung nodule, endobronchial biopsy and endobronchial ultrasound-guided lymph node surveillance and fine-needle aspiration of lymph node Indications:: Lung mass lymphadenopathy Performing Provider:: Latha Queen MD Referring Provider:: Dr: Garcia Melgar MD Sedation:: General anesthesia Procedure:: I had extensive discussions today prior to the procedure with patient and patient's daughter regarding the plan of care for today. We have discussed his CT findings of left lung mass, lymphadenopathy new RLL lung nodule and along with his spinal lesions which are all concerning for cacer etiology and if so which is likely to be a advanced stage IV cancer. We also discussed regarding the possible treatment options including chemotherapy, radiation and immunotherapy. We have also discussed hospice care. Patient stated that he did not want to pursue chemotherapy and radiation however willing and be open to pursue immunotherapy. We have also discussed that immunotherapy would be an option only if his tumor markers comes back positive and there is a likely chance that his tumor markers comes back negative and he would not qualify for immunotherapy. Patient expresses complete understanding of the current clinical scenario possible prognosis treatment options and the reason for pursuing bronchoscopy today. After completing the discussions patient and the family expressed their complete understanding and they agreed to proceed with the bronchoscopy. Patient and the family have no questions at the end of my discussion. Consent signed and plan was made to proceed with bronchoscopy. Navigational bronchoscopy, airway examination, bronchoalveolar lavage, trans bronchial fine-needle aspiration, trans bronchial brushing and trans bronchial biopsy of lung nodule, endobronchial biopsy and endobronchial ultrasound-guided lymph node surveillance and fine-needle aspiration of lymph node. A clean diagnostic bronchoscopy was advanced to the ET tube and airway examination was performed. Airways appeared grossly normal, no evidence mucous plugging active bleeding/old blood clots noted. Copious amount of secretions were noted, suction easily. Resultatnt bronchial washing samples were sent for bacterial stain and cultures Diagnostic bronchoscopy was retracted, and Robotic Ion bronchoscopy was introdu herberth through the ET tube. Patient images were previously uploaded into the ION Plan point software. The target nodule sampling was planned, and the pathway was mapped. The nodule as selected measured 30 mm in long axis. Following airway examination, airway registration was performed using shape sensing robot assisted bronchoscopy (SSRAB). We were 2 mm from the near edge of the nodule in the KARI. A Radial EBUS - [id number] was inserted to confirm the location which was tangential. Under fluoroscopy guidance the samples were taken. Sampling: A flexion 21 needle was used to perform FNA of the KARI Lung nodule. A total of 4 passes were made. This was followed by passes with a needle brush, 1 pass was made. Transbronchial forceps biopsies were then performed with a total of 8 biopsies were performed in the KARI Lung nodule. Bronchoalveolar lavage was performed with instillation of 10 cc normal saline with return of 5 cc back. Samples from transbronchial FNA, brush, and bronchoalveolar lavage were sent in CytoLyt for cytopathologic examination. The samples from forceps biopsy were sent in formalin. Ion robotic bronchoscopy was retracted and EBUS bronchoscope was introduced for lymph node surveillance. Five passes were taken using 21 gauge needing at lymph node [id number], 7 and 10L. Resultant lymph node FNA sample were labelled separately for each lymph node station and were sent in CytoLyt for cytopathologic examination. Findings:: Please see the procedure note Recommendations:: Postoperative bronchoscopy instructions Follow in pulmonary clinic in 5 to 7 days Continue outpatient antibiotics including Zosyn pending final culture result Complications:: No acute immediate complication Estimated blood obtained (mL): 10
[2025-02-24] MEDS: ALBUTEROL 0.083% 2.5 MG/3 ML NEB IH (12:13)
--- NOTE | 2025-02-24 13:28 | P.PNANES_ITS ---
[facility] Anesthesia Record Part II Anesthesia Record Part II Discharge Time: 12:00 Destination: Surgical Day Care (OP Surgery) PACU nurse assessment reviewed?: Yes Patient Condition:: Good Anesthesia Complications:: None Swallowing reflex intact?: Yes Airway Patency: Patent Cyanosis?: No Blood Pressure: 132/77 SaO2: 95 Respiratory Rate: 15 Pulse Rate: 95 Temperature: 97.1 F Mental Status: Alert & Oriented Pain level:: 0 Nausea and/or vomitting:: None Intake, IV Amount: 0 Hydration: Adequate
--- NOTE | 2025-02-24 14:27 | SUR.PHASEII ---
RESPIRATORY THERAPIST AT BEDSIDE FOR [place] PER md order [id number]. Dr. Queen at bedside 1231.
[2025-02-27 06:06] LABS: POC Glucose,Bedside 134 gm/dL (70-110)
== END 2025-02-24 12:41 | disposition home or self-care (01) ==
PROVIDERS: PCP Pediatrics; Visit Provider Internal Medicine Pulmonary Disease
PROC: (CPT 31623; principal; 2025-02-24 07:30)
DX: C34.12 Malignant neoplasm of upper lobe, left bronchus or lung (principal); I12.9 Hypertensive chronic kidney disease with stage 1 through stage 4 chronic kidney disease, or unspecified chronic kidney disease; E11.22 Type 2 diabetes mellitus with diabetic chronic kidney disease; N18.9 Chronic kidney disease, unspecified; F41.9 Anxiety disorder, unspecified; J44.89 Other specified chronic obstructive pulmonary disease; F32.A Depression, unspecified; K21.9 Gastro-esophageal reflux disease without esophagitis; E78.5 Hyperlipidemia, unspecified; F17.210 Nicotine dependence, cigarettes, uncomplicated; E11.40 Type 2 diabetes mellitus with diabetic neuropathy, unspecified; Z79.4 Long term (current) use of insulin; Z79.82 Long term (current) use of aspirin; Z79.891 Long term (current) use of opiate analgesic; Z79.899 Other long term (current) drug therapy
CPT/HCPCS: 31623; 31624; 31627; 31628; 31629; 31653; 71045; 76000; 82962; 87070; 87077; 87205; 94640; J1100; J2003; J2371; J2405; J2704; J3010

== ENCOUNTER 2025-03-01 04:37 | Inpatient (IN) | payer MEDICARE, MEDICAID, SELFPAY ==
--- OUTSIDE RECORDS SUMMARY | 2025-02-10 10:40 | XMS_ITS | Encounter Summary ---
Author Organization [facility] Address [address] [place] [address] Care Team Providers Care Training Engineer Name Role Phone Shankar Raya MD Primary Care Provider + [phone] Reason for Referral * Consultation (Routine) - Authorized Specialty Diagnoses / Procedures Referred By Contimtiaz t Referred To Contact Diagnoses CKD (chronic kidney disease) stage 4, GFR 15-29 ml/min (CMS/HCC) Ira Neely APRN [address] [address] Phone: tel: fax: Referral ID Status Reason Start Date Expiration Date V isits Requested Visits Authorized [id number] Authorized 02/10/2025 08/12/2026 1 1 Encounter Details Date Type Department Care Team (Late st Contact Info) Description 02/10/2025 10:40 AM EDT Office Visit [facility] [address] [place] [phone] Ira Neely APRN [address] [address] CKD (chronic kidney disease) stage 4, GFR 15-29 ml/min (CMS/HCC) (Primary Dx); Essential hypertension; Diabetes mellitus due to underlying condition with diabetic chronic kidney disease, unspecified CKD stage, unspecified whether buttermaker continuous churn insulin use (CMS/HCC); Chronic kidney disease-mineral and [...] Notes * Progress Notes - Ira Neely, COATER SLATE - 02/10/2025 10:40 AM EDT Nephrology Clinic [...] of renal disease. He is currently a [place] resident. His BP medications were recently adjusted. Patients renal function Creatinine07/15/24 2.4 egfr 27. Most recent creatinine 2.2 egfr 30. Likely baseline 2-2.4. Patient denies any edema. Notes appettie has been very poor. States he was started on an appetite stimulant [place]. Labs at [place] with glucose 44, Insulin dose has decreased [...] mg, Daily DULoxetine (CYMBALTA) 60 mg, Daily Leuinxfygsp-Rkzbipxno-Vymdun (Trelegy Ellipta) 200-62.5-25 MCG/ACT aerosol powder Inhale. gabapentin (NEURONTIN) 300 mg, 2 times daily Uvfmfbxh-Nnjxnsgscnnz-AVS 400 (VISINE DRY EYE OP) Administer into [...] OTC (PRILOSEC OTC) 20 mg, Daily pancrelipase, Akg-Fxua-Xvvj, (Zenpep) [id number] units capsule delayed-release particles capsule 1capsule, 3 [...] Labs scanned in to media tab of [employer] from an outside facility. Labs completed on [...] Patient confirms they are physically located in [place]? Yes If the patient is not physically located in [place], the provider has confirmed with [facility] thatthe provider is authorized to provide services in patient's stated location? N/A Provider Location: [facility] facility Audio and video or audio only? [...] Description 06/23/2025 10:40 AM EST Office Visit [facility] [address] [place] [address] Ira Neely APRN [address] [address] Scheduled Orders Name Type Priority Associated Diagnoses Orde r Schedule CBC W/O Differential Lab Routine CKD (chronic kidney disease) stage 4, GFR 15-29 ml/min ([facility]) Expected: 02/10/2025 (Approximate), Expires: 08/10/2026 Protein, Random, Urine with Creatinine Lab Routine CKD (chronic kidney disease) stage 4, GFR 15-29 ml/min (CMS/HCC) Expected: 02/10/2025 (Approximate), Expires: 08/10/2026 Urinalysis with reflex microscopic (Culture NOT Included) Lab Routine CKD (chronic kidney disease) stage 4, GFR 15-29 ml/min (CMS/HCC) Expected: 02/10/2025 (Approximate), Expires: 08/10/2026 PTH Intact Total Lab Routine CKD (chronic kidney disease) stage 4, GFR 15-29 ml/min (CMS/HCC) Expected: 02/10/2025 (Approximate), Expires: 08/10/2026 Renal Function Panel, Plasma Lab Routine CKD (chronic kidney disease) stage 4, GFR 15-29 ml/min (CMS/HCC) Expected: 02/10/2025 (Approximate), Expires: 08/10/2026 Scheduled Referrals Name Type Priority Associated Diagnoses Order Schedule Follow Up Nephrology Outpatient Referral Routine CKD (chronic kidney disease) stage 4, GFR 15-29 ml/min (CMS/HCC) Expected: 06/12/2025 (Approximate), Expires: 03/12/2026 documented as of this encounter Visit Diagnoses Diagnosis CKD (chronic kidney disease) stage 4, GFR 15-29 ml/min (CMS/HCC)- Primary Chronic kidney disease, Stage IV (severe) Essential hypertension Unspecified essential hypertension Diabetes mellitus due to underlying condition with diabetic chronic kidney disease, unspecified CKD stage, unspecified whether buttermaker continuous churn insulin use Chronic kidney disease-mineral and bone disorder Anemia due to stage 4 chronic kidney disease documented in this encounter Additional Health Concerns Assessment Noted Time A Body Mass Index follow-up plan has been documented for the patient 02/10/2025 11:06 AM EDT documented as of this encounter Care Teams Training Engineer Relationship Specialty Start Date End Date Shankar Raya MD [address] [place] [address] [place] [id number] PCP - General 10/12/20 documented as of this encounter
--- OUTSIDE RECORDS SUMMARY | 2025-02-10 10:40 | XMS_ITS | Encounter Summary ---
Author Organization [facility] Address [address] [place] [address] Care Team Providers Care Collar Turner Operator Name Role Phone Shankar Raya MD Primary Care Provider + [phone] Reason for Referral * Consultation (Routine) - Authorized Specialty Diagnoses / Procedures Referred By Contimtiaz t Referred To Contact Diagnoses CKD (chronic kidney disease) stage 4, GFR 15-29 ml/min (CMS/HCC) Ira Neely APRN [address] [address] Phone: tel: fax: Referral ID Status Reason Start Date Expiration Date V isits Requested Visits Authorized [id number] Authorized 02/10/2025 08/12/2026 1 1 Encounter Details Date Type Department Care Team (Late st Contact Info) Description 02/10/2025 10:40 AM EDT Office Visit [facility] [address] [place] [phone] Ira Neely APRN [address] [address] CKD (chronic kidney disease) stage 4, GFR 15-29 ml/min (CMS/HCC) (Primary Dx); Essential hypertension; Diabetes mellitus due to underlying condition with diabetic chronic kidney disease, unspecified CKD stage, unspecified whether truck hopper insulin use (CMS/HCC); Chronic kidney disease-mineral and [...] Notes * Progress Notes - Ira Neely, RELIGIOUS STUDIES PROFESSOR - 02/10/2025 10:40 AM EDT Nephrology Clinic [...] of renal disease. He is currently a [place] resident. His BP medications were recently adjusted. Patients renal function Creatinine07/15/24 2.4 egfr 27. Most recent creatinine 2.2 egfr 30. Likely baseline 2-2.4. Patient denies any edema. Notes appettie has been very poor. States he was started on an appetite stimulant at [place]. Labs at [place] with glucose 44, Insulin dose has decreased [...] mg, Daily DULoxetine (CYMBALTA) 60 mg, Daily Jtunodeyijg-Gzibbkjrj-Rbvgwe (Trelegy Ellipta) 200-62.5-25 MCG/ACT aerosol powder Inhale. gabapentin (NEURONTIN) 300 mg, 2 times daily Tnymysac-Zrgzpejwkdos-CSC 400 (VISINE DRY EYE OP) Administer into [...] OTC (PRILOSEC OTC) 20 mg, Daily pancrelipase, Ckz-Askk-Akun, (Zenpep) [id number] units capsule delayed-release particles capsule 1capsule, 3 [...] Labs scanned in to media tab of [facility] from an outside facility. Labs completed on [...] Patient confirms they are physically located in [place]? Yes If the patient is not physically located in [place], the provider has confirmed with [facility] thatthe provider is authorized to provide services in patient's stated location? N/A Provider Location: [facility] facility Audio and video or audio [...] Description 06/23/2025 10:40 AM EST Office Visit [facility] [address] [place] [address] Ira Neely APRN [address] [address] Scheduled Orders Name Type Priority Associated Diagnoses Orde r Schedule CBC W/O Differential Lab Routine CKD (chronic kidney disease) stage 4, GFR 15-29 ml/min ([facility]) Expected: 02/10/2025 (Approximate), Expires: 08/10/2026 Protein, Random, [...] kidney disease, unspecified CKD stage, unspecified whether truck hopper insulin use Chronic kidney disease-mineral and bone disorder Anemia due to stage 4 chronic kidney disease documented in this encounter Additional Health Concerns Assessment Noted Time A Body Mass Index follow-up plan has been documented for the patient 02/10/2025 11:06 AM EDT documented as of this encounter Care Teams Collar Turner Operator Relationship Specialty Start Date End Date Shankar Raya MD [address] [place] [address] [place] [id number] PCP - General 10/12/20 documented as of this encounter
[2025-03-01] VITALS (40 sets, daily range): BP systolic 91–160; BP diastolic 57–83; PULSE 59–87; RESP 12–27; TEMP 36.2–36.9; O2SAT 3–100; BMI 23.6; BMI 22.2
--- NOTE | 2025-03-01 04:27 | XR_ITS ---
PROCEDURE INFORMATION: Exam: XR Chest Exam date and time: 03/01/2025 4:37 AM Age: 69 years old Clinical indication: Shortness of breath; Additional info: Copd, lung cancer, SOA TECHNIQUE: Imaging protocol: Radiologic exam of the chest. Views: 1 view. COMPARISON: CR XR CHEST PORTABLE 02/24/2025 11:42 AM FINDINGS: Tubes, catheters and devices: Left arm PICC line position is unchanged Airway: Trachea remains midline Lungs: Diffuse left lung pneumonias much worsened on the current examination Pleural spaces: Unremarkable. No pleural effusion. No pneumothorax. Heart/Mediastinum: Unremarkable. No cardiomegaly. Bones/joints: Unremarkable. Other findings: No effusions IMPRESSION: Much worsened left lung pneumonia or pneumonitis. No definite effusion
--- NOTE | 2025-03-01 04:29 | ECG_ITS ---
APPROVED REPORT Exam: Resting ECG HR:76 bpm ECG Measurements Heart Rate 76 AXES SD 204 P 70 QRSd 74 QRS 66 QT 339 T 76 QTc 370 Conclusion SINUS RHYTHM SEPTAL MYOCARDIAL INFARCTION , PROBABLY OLD [40+ ms Q WAVE IN V1/V2] ABNORMAL ECG UNCONFIRMED REPORT Electronically signed by : KIKE CHRISTIANSON, 03/02/2025 23:04:11
[2025-03-01 04:38] LABS: Hematocrit 36.8 % (42.0-52.0); Hemoglobin 11.3 g/dL (14.1-18.0); Immature Granulocytes % 1.1 %; Mean Corpuscular HGB Conc 30.7 g/dL (31.8-35.4); Mean Corpuscular Hemoglobin 26.1 pg (27.0-31.2); Mean Corpuscular Volume 85.0 fl (80-94); Nucleated Red Blood Cells % 0 %; Platelet Count 185 K/mm3 (142-424); Red Blood Count 4.33 M/mm3 (4.60-6.20); Red Cell Distribution Width-SD 48.5 fL; White Blood Count 14.1 K/mm3 (4.8-10.8)
--- NOTE | 2025-03-01 04:40 | HMH.EDGENADL ---
Discharge Plan Disposition Patient Disposition: Admitted Prescriptions Prescriptions: No Action diltiazem HCl 120 mg tablet extended release 24 hr 120 mg PO HS duloxetine 60 mg capsule,delayed release(DR/EC) 60 mg PO DAILY dapagliflozin propanediol [Farxiga] 10 mg tablet 10 mg PO DAILY Qty: 30 3RF melatonin 3 mg capsule 9 mg PO HS PRN (Reason: Sleep) Systane Balance 0.6 % drops 1 drp Eye-Both TID dextromethorphan-guaifenesin 20-200 mg/15 mL liquid 20 ml PO Q12HP PRN (Reason: Cough) pantoprazole 40 mg tablet,delayed release (DR/EC) 40 mg PO DAILY oxybutynin chloride 10 mg tablet extended release 24hr 10 mg PO DAILY 30 Days Qty: 30 0RF gabapentin 300 mg capsule 300 mg PO BID 30 Days Qty: 60 2RF nystatin 100,000 unit/mL suspension 600,000 unit PO TID 10 Days Qty: 180 0RF Rx Instructions: administer 1/2 of dose in each side of the mouth amoxicillin-pot clavulanate [Augmentin] 500-125 mg tablet 1 tab PO Q12H 7 Days Qty: 14 0RF simvastatin 40 mg tablet 40 mg PO HS Zenpep 10,000-32,000 -42,000 unit capsule,delayed release(DR/EC) 1 cap PO TID Patient Comments: TAKE ONE CAPSULE BY MOUTH THREE TIMES DAILY Trelegy Ellipta 200-62.5-25 mcg blister with device 1 inh INHALATION DAILY carvedilol 25 mg Tablet 25 mg PO BID 30 Days Qty: 60 0RF Rx Instructions: HOLD FOR SBP <100, DBP <60, OR HR < 60 buspirone 7.5 mg tablet 7.5 mg PO BID albuterol sulfate [Ventolin HFA] 90 mcg/actuation HFA aerosol inhaler 2 inh INHALATION Q4HP PRN (Reason: Shortness Of Breath) aspirin 81 mg Tablet,Chewable 81 mg PO DAILY 30 Days Qty: 30 0RF insulin glargine [Basaglar KwikPen U-100 Insulin] 100 unit/mL (3 mL) insulin pen 20 unit SQ DAILY Mounjaro 7.5 mg/0.5 mL Pen Injector 7.5 mg SQ WEEKLY multivitamin Tablet 1 tab PO DAILY losartan-hydrochlorothiazide 100-25 mg tablet 1 tab PO DAILY Rx Instructions: HOLD FOR SBP <100, DBP <60, OR HR < 60 hydrocodone-acetaminophen 5-325 mg Tablet 1 tab PO Q6HP PRN (Reason: Moderate To Severe Pain (4-10)) 7 Days Qty: 28 0RF acetaminophen 500 mg Tablet 500 mg PO Q4HP PRN (Reason: pain/fever) Referrals Follow up/Referrals: Provider,Referral, MD [Primary Care Provider, Medical] - See instructions Clinical Impressions Clinical Impression: Lung cancer, Pneumonia, Respiratory failure with hypoxia and hypercapnia Print Language Print Language: Panamanian Discharge ED Provider: Rogelio Shahid General Adult HPI General Chief complaint: Shortness of Breath/Dyspnea Stated complaint: Short of Breath Time Seen by Provider: 03/01/25 04:40 History of Present Illness HPI narrative: 69-year-old male with extensive past medical history presents for worsening shortness of breath. He was admitted last week with new diagnosis of lung cancer and postobstructive pneumonia. They are considering hospice, but he is not currently on hospice. He has history of cancer and went through treatment for colon and prostate cancer and has decided he does not want to pursue any further therapy for his lung cancer. He was treated for pneumonia and discharged back to his nursing facility. He was satting 65% at the nursing facility, improved to 85 with EMS after DuoNeb and is still short of breath on arrival. Related Data Home Medications ?Medication ?Instructions ?Recorded ?Confirmed fluticasone fur. 200 mcg-umeclid 1 inh inhalation DAILY 05/06/23 02/20/25 62.5 mcg-vilant 25 mcg inhalat.powder (Trelegy Ellipta) ilvbaf-dgidlffr-hnzdnwo 1 cap PO TID 05/06/23 02/20/25 10,000-32,000-42,000 unit capsule,delayed rel (Zenpep) simvastatin 40 mg tablet 40 mg PO HS 05/06/23 02/20/25 acetaminophen 500 mg tablet 500 mg PO Q4HP PRN pain/fever 07/22/23 02/20/25 diltiazem HCl 120 mg 120 mg PO HS 11/17/24 02/20/25 tablet,extended release 24 hr duloxetine 60 mg capsule,delayed 60 mg PO DAILY 11/17/24 02/20/25 release pantoprazole 40 mg tablet,delayed 40 mg PO DAILY 01/17/25 02/20/25 release dextromethorphan-guaifenesin 20 20 ml PO Q12HP PRN Cough 02/03/25 02/20/25 mg-200 mg/15 mL oral liquid melatonin 3 mg capsule 9 mg PO HS PRN Sleep 02/03/25 02/20/25 propylene glycol 0.6 % eye drops 1 drp Eye-Both TID 02/03/25 02/20/25 (Systane Balance) albuterol sulfate 90 mcg/actuation 2 inh inhalation Q4HP PRN 02/12/25 02/21/25 aerosol inhaler (Ventolin HFA) Shortness Of Breath buspirone 7.5 mg tablet 7.5 mg PO BID 02/12/25 02/20/25 insulin glargine 100 unit/mL (3 20 unit SQ DAILY 02/20/25 02/20/25 mL) subcutaneous pen (Basaglar KwikPen U-100 Insulin) tirzepatide 7.5 mg/0.5 mL 7.5 mg SQ WEEKLY on thursday02/20/25 02/20/25 subcutaneous pen injector (Madeleine) losartan 100 1 tab PO DAILY 02/21/25 02/20/25 mg-hydrochlorothiazide 25 mg tablet Held on 02/21/25. Instructions: Resume on 02/28/25. Blood pressures stable without this medication. multivitamin 1 tab PO DAILY 02/21/25 02/21/25 Previous Rx's ?Medication ?Instructions ?Recorded gabapentin 300 mg capsule 300 mg PO BID 30 days #60 caps 03/28/24 carvedilol 25 mg tablet 25 mg PO BID 30 days #60 tabs 04/10/24 dapagliflozin propanediol 10 mg 10 mg PO DAILY #30 tabs 04/19/24 tablet (Farxiga) oxybutynin chloride 10 mg 10 mg PO DAILY 30 days #30 tabs 01/23/25 tablet,extended release 24 hr aspirin 81 mg chewable tablet 81 mg PO DAILY 30 days #30 tabs 02/14/25 hydrocodone 5 mg-acetaminophen 325 1 tab PO Q6HP PRN Moderate To 02/21/25 mg tablet Severe Pain (4-10) 7 days #28 tabs nystatin 100,000 unit/mL oral 600,000 unit (6 mL) PO TID 10 days 02/22/25 suspension #180 mL amoxicillin 500 mg-potassium 1 tab PO Q12H 7 days #14 tabs 02/28/25 clavulanate 125 mg tablet (Augmentin) Allergies Allergy/AdvReac Type Severity Reaction Status Date / Time No Known Allergies Allergy Verified 02/22/25 14:32 [facility] Disclaimer: The information contained in this section may have been updated after the patient was seen, as this information can be updated by other users. Medical History Hilar lymphadenopathy Lung mass Encounter for special screening examination for neoplasm of respiratory organ Mitral regurgitation SOB (shortness of breath) T12 compression fracture Nrdwn-ko-oveotru kidney injury GERD (gastroesophageal reflux disease) Adult failure to thrive Fall Acute pain of left hip Acute hyperkalemia [place] (acute kidney injury) Altered mental status Prostate cancer COPD mixed type Neuropathy Frequent falls Abnormal computerized axial tomography of chest Tobacco abuse Smoking greater than 30 pack years Dyspnea on exertion Pulmonary emphysema Cavitary lesion of lung Lung abscess COVID COVID CKD (chronic kidney disease) Chronic pancreatitis due to chronic alcoholism Hyponatremia Pneumonia COPD (chronic obstructive pulmonary disease) Asthma Alcohol abuse Anxiety Depression Arthritis Irritable bowel syndrome (IBS) History of gastroesophageal reflux (GERD) Diabetes mellitus, type 2 Hypertension Hyperlipidemia Colon cancer Pneumonia Hypomagnesemia Hyponatremia Chronic pancreatitis Protein-calorie malnutrition, moderate Acute alcoholic pancreatitis Alcohol withdrawal Illiteracy Transaminitis Type 2 diabetes mellitus Macrocytic anemia Protein-calorie malnutrition, mild Acute renal failure Chronic alcohol abuse [place] (acute kidney injury) Polysubstance abuse Acute pancreatitis Alcoholic pancreatitis Alcoholism HTN (hypertension) COPD (chronic obstructive pulmonary disease) Hx of malignant neoplasm of colon Tobacco use disorder Surgical History History of cataract surgery S/P TURP History of colon resection History of colonoscopy Hx of prostatectomy Family History Mother Family history of diabetes mellitus type II Social History (Updated 02/24/25 @ 06:22 by Clementine Fermin RN) Smoking Status: Current every day smoker tobacco type: cigarettes packs per day: 1 years smoked: 54 quit status: has quit before second hand exposure: Yes alcohol intake: former counseling provided: provider counseling substance use type: marijuana current occupational status: disabled Travel in the last 8 weeks?: None household members: none housing: apartment lives independently: Yes (home health comes twice a week ) marital status: current occupational exposures/hazards: No caffeine: Yes (coffee) physical activity: none do you feel safe at home: Yes Other Medical History Have you received the Flu Vaccine for this season: No Have you received the Pneumonia Vaccine: No ROS Obtained: Yes All systems reviewed & no additional complaints except as documented Physical Exam General General appearance: alert and in distress Head Head exam: atraumatic and normocephalic Eye Eye exam: Present normal appearance, PERRL and EOMI ENT ENT exam: Present normal oropharynx and normal external ear exam Neck Neck exam: Present normal inspection and full ROM Chest Chest inspection: Present normal inspection and symmetric chest wall rise; Absent tenderness Respiratory Respiratory exam: Present respiratory distress, wheezes, accessory muscle use and prolonged expiratory phase Cardiovascular Cardiovascular exam: Present regular rate and normal rhythm Abdominal Exam Abdominal exam: Present soft; Absent distention, tenderness or guarding Extremities Exam Extremities exam: Present normal inspection; Absent edema or joint swelling Back Exam Back exam: Present normal inspection; Absent tenderness Neurological Exam Neurological exam: Present alert and oriented X3; Absent motor sensory deficit Psychiatric Psychiatric exam: Present normal affect and normal mood Skin Skin exam: Present warm, dry and normal color Lymphatic Lymphatic Findings: no adenopathy Medical Decision Making Medical Records Medical records reviewed: Yes I reviewed the patient's medical records. Screening: Per USPSTF and CDC recommendations, given the prevalence of disease in our region, it is our hospital?s policy to screen for HIV and viral Hepatitis for all patients aged 18 and over and those with ongoing risk factors. Steven Inquiry Pt receiving controlled substance: No Steven was queried for this patient: No Vital Signs: 03/01/25 04:37 03/01/25 04:44 03/01/25 04:53 Temperature 98.5 F Temperature Source Oral Pulse Rate 87 Pulse Rate [Left] 79 Respiratory Rate 27 H Blood Pressure [Right Arm] 105/76 L Blood Pressure Mean [Right Arm] 85 Blood Pressure Source [Right Arm] Automatic Cuff Blood Pressure Position [Right Arm] Sitting 02 Sat by Pulse Oximetry 92 L 92 L Oxygen Delivery Method Nasal Cannula Nasal Cannula Oxygen Flow Rate (LPM) 2 2 Lab Data Lab results reviewed: Yes I reviewed the patient's lab results. Lab Results 03/01/25 04:28: VBG pH 7.24 L, VBG pCO2 56.8 H, VBG pO2 65.5 H, VBG HCO3 23.6, VBG Total CO2 25.4, VBG O2 Saturation 90.9 H, VBG Base Excess -3.8 L, VBG Lactic Acid 1.3 03/01/25 04:30: WBC 14.1 H, RBC 4.33 L, Hgb 11.3 L, Hct 36.8 L, MCV 85.0, MCH 26.1 L, MCHC 30.7 L, RDW 15.8, Plt Count 185, MPV 10.3, Neut % (Auto) 78.8, Lymph % (Auto) 9.6 L, [place] % (Auto) 8.9, Eos % (Auto) 1.4, Baso % (Auto) 0.2, Neut # (Auto) 11.1 H, Lymph # (Auto) 1.4, [place] # (Auto) 1.3 H, Eos # (Auto) 0.2, Baso # (Auto) 0.0, PT 13.6 H, INR 1.25 H, Sodium 132 L, Potassium 5.0, Chloride 98, Carbon Dioxide 25, Anion Gap 14.0, BUN 30 H, Creatinine 1.60 H, Estimated GFR 43 L, Est GFR ( Amer) 52 L, Glucose 157 H, Calcium 8.5, Total Bilirubin 0.6, AST 20, ALT 12, Alkaline Phosphatase 106, Total Protein 5.6 L, Albumin 3.1 L, Globulin 2.5, Albumin/Globulin Ratio 1.2 03/01/25 04:30 03/01/25 04:30 Orders (Tests/Meds): ED MEDICATIONS Generic Name Dose Route Start Last Admin Trade Name Freq PRN Reason Stop Dose Admin Vancomycin/PEG/NADA/Lysine/Water 1.25 gm in 250 mls @ 125 mls/hr 03/01/25 05:30 Vancomycin 1.25gm/250ml (Peg) Premix IV 03/01/25 07:29 ONCE ONE Miscellaneous 1 each 03/01/25 05:00 Vancomycin Consult Request NOTAPPLIC 03/31/25 04:59 CONSULT PHARMACY MAJOR Discontinued Medications Generic Name Dose Route Start Last Admin Trade Name Freq PRN Reason Stop Dose Admin Albuterol/Ipratropium 6 ml 03/01/25 04:26 03/01/25 04:44 Ipratropium/Albuterol 3 Ml Neb IH 03/01/25 04:27 6 ml ONCE ONE Administration Magnesium Sulfate 2 gm in 50 mls @ 150 mls/hr 03/01/25 04:26 03/01/25 05:15 Magnesium Sulfate 2gm/50ml Premix IV 03/01/25 04:45 Infused ONCE ONE Infusion Piperacillin Sod/Tazobactam 100 mls @ 200 mls/hr 03/01/25 04:46 Sod 4.5 gm/ Sodium Chloride IV 03/01/25 05:15 ONCE ONE Methylprednisolone Sodium Succinate 125 mg 03/01/25 04:26 03/01/25 04:58 Methylprednisolone Sod Succ 125mg Vial IV 03/01/25 04:27 125 mg ONCE ONE Administration ORDERS Category Date Time Status CXR --portable [XR chest portable] Stat Exams 03/01/25 04:27 Taken BNP [NT Pro Brain Natriuretic Pep.] Stat Lab 03/01/25 04:30 Results CBC w/Auto Diff [Complete Blood Count Auto Diff] Stat Lab 03/01/25 04:30 Completed CMP [Comprehensive Metabolic Panel] Stat Lab 03/01/25 04:30 Results INR [Prothrombin Time INR] Stat Lab 03/01/25 04:30 Completed Troponin I Q3H Lab 03/01/25 04:30 Results Troponin I Q3H Lab 03/01/25 07:30 Ordered Blood Culture Stat Micro 03/01/25 04:36 Received VBG [Venous Blood Gas] Stat RT 03/01/25 04:28 Completed ECG Data Tracing #1: I reviewed this ECG and interpreted as documented below: Sinus rhythm, ventricular rate of 76, no obvious ischemic changes ECG initial impression date: 03/01/25 ECG initial impression time: 04:29 HEART Score History (anamnesis): Slightly suspicious ECG: Normal Age: >65 years Risk factors: Atherosclerosis history Troponin: </= normal limit HEART Score: 4 Medical Decision Narrative: 69-year-old male with history of COPD, recent diagnosis of lung cancer postobstructive pneumonia presents with worsening shortness of breath.. History was obtained via interactive discussion with patient, EMS, chart review, family. On arrival, patient is in significant respiratory distress with diffuse wheezing, prolonged expiratory phase, accessory muscle use, requiring increased nasal cannula oxygen. Differential includes but is not limited to worsening metastatic disease, pneumonia, PE, COPD exacerbation. Patient was given DuoNebs x 2, IV Solu-Medrol, 2 g mag for symptomatic management and correction of underlying abnormalities. Workup initiated including chest x-ray broad-spectrum labs. On re-evaluation, patient significantly improved from respiratory standpoint, still requiring increased oxygen from baseline. Laboratory workup independently interpreted by me and significant for elevated BNP, creatinine improved from baseline, respiratory acidosis noted on VBG. Imaging independently interpreted by me and significant for significant worsening of left-sided opacity consistent with postobstructive pneumonia. See radiology read for full review of final results. Given patient history, exam and workup, patient's presentation most likely represents worsening postobstructive pneumonia secondary to recently diagnosed malignancy. I had an extensive discussion with patient and with his daughter regarding his presentation. They report that they have an appointment tomorrow to speak with our fast food assistant restaurant manager. They are considering hospice but would like to speak with him first before making a decision. As such, patient was admitted to the hospitalist on IV antibiotics for pneumonia. Procedures Risk/Benefits of Procedure(s) Were Explained: Yes Critical Care Critical Care Time Critical Care Time: Yes Attestation: On 03/01/25, the high probability of a clinically significant, sudden or life threatening deterioration of the following system(s) required my full and direct attention, intervention and personal management. The time I documented below is in addition to time spent performing reported procedures but includes the following listed in this critical care notation. Total Time Total Critical Care Time: 45
[2025-03-01 04:41] LABS: Lactate Venous 1.3 mmol/L (0.4-2.0); VBG HCO3 23.6 mmol/L (23-30); VBG PCO2 56.8 mmol/L (35-51); VBG PH 7.24 mmol/L (7.31-7.41); VBG PO2 65.5 mmol/L (28-40)
[2025-03-01] MEDS: IPRATROPIUM/ALBUTEROL 3 ML NEB 6 ML IH (04:44)
[2025-03-01 04:48] LABS: Alanine Aminotransferase 12 U/L (12-78); Albumin Level 3.1 g/dl (3.5-5.0); Albumin/Globulin Ratio 1.2 (1.1-1.8); Alkaline Phosphatase 106 U/L (38-126); Anion Gap 14.0 mEq/L (5-15); Aspartate Amino Transferase 20 U/L (17-59); Bilirubin,Total 0.6 mg/dl (0.2-1.3); Blood Urea Nitrogen 30 mg/dl (9-20); Calcium 8.5 mg/dl (8.4-10.2); Carbon Dioxide 25 mmol/L (22.0-30.0); Chloride 98 mmol/L (98-107); Creatinine,Serum 1.60 mg/dl (0.66-1.25); Estimated Glomerular Filt Rate 43 ml/min (>60); GFR (African American) 52 ML/MIN (>60); Globulin 2.5 g/dL (1.3-3.2); Glucose 157 mg/dl (74-100); Potassium 5.0 mmoL/L (3.5-5.1); Sodium 132 mmol/L (136-145); Total Protein,Serum 5.6 g/dl (6.3-8.2)
[2025-03-01] MEDS: MAGNESIUM SULFATE IN WATER 2 GM/50 ML PIGGYBACK IV (04:48)
[2025-03-01 04:49] LABS: INR 1.25 (0.9-1.1); Prothrombin Time 13.6 seconds (10.1-12.5)
[2025-03-01 04:57] LABS: NT Pro Brain Natriuretic Pep. 6660 pg/mL (0-125)
[2025-03-01] MEDS: METHYLPREDNISOLONE SOD SUCC 125MG VIAL 125 MG IV (04:58)
--- OUTSIDE RECORDS SUMMARY | 2025-03-01 05:15 | XMS_ITS | Encounter Summary ---
Author Organization Healthcare Address [address] [place] [address] Care Team Providers Care Farm Operations Manager Name Role Phone Shankar Raya MD Primary Care Provider + [phone] Encounter Details Date Type Department Care Team (Late Contact Info) Description 02/20/2025 Orders Only External Location [address] [place] [address] Provider, External Social History Tobacco Use Types Packs/Day Years [...] [facility] [address] [place] [address] Ira Neely, PHONE OPERATOR [address] [address] documented as of this encounter Procedures Procedure Name Priority Date/Time Associated Diagnosis Comments CT NEURO OUTSIDE IMAGES 02/20/2025 2:13 PM EDT documented in this encounter Results * CT NEURO OUTSIDE IMAGES (02/20/2025 2:13 PM EDT) Anatomical Region Laterality Modality Computed Tomogra phy 02/20/2025 2:13 PM EDT us External Provider IMG CT PROCEDURES Edited Resul t - Final documented in this encounter Visit Diagnoses Not on filedocumented in this encounter Additional Health Concerns Assessment Noted Time A Body Mass Index follow-up plan has been documented for the patient 02/10/2025 11:06 AM EDT documented as of this encounter Care Teams Farm Operations Manager Relationship Specialty Start Date End Date Shankar Raya MD [address] [place] [address] [place] [id number] PCP - General 10/12/20 documented as of this encounter
--- OUTSIDE RECORDS SUMMARY | 2025-03-01 05:15 | XMS_ITS | Encounter Summary ---
Author Organization Healthcare Address [address] [place] [address] Care Team Providers Care Security Professional Name Role Phone Shankar Raya MD Primary Care Provider + [phone] Encounter Details Date Type Department Care Team (Late st Contact Info) Description 02/20/2025 Orders Only External Location [address] [place] [address] Provider, External Social History Tobacco Use Types [...] Description 06/23/2025 10:40 AM EST Office Visit [facility] [address] [place] [address] Ira Neely, WELL LOGGING CAPTAIN MUD ANALYSIS [address] [address] documented as of this encounter Procedures Procedure Name Priority Date/Time Associated Diagnosis Comments CT THORACIC OUTSIDE IMAGES 02/20/2025 3:48 PM EDT documented in this encounter Results * CT THORACIC OUTSIDE IMAGES (02/20/2025 3:48 PM EDT) Anatomical Region Laterality Modality Computed Tomogra phy 02/20/2025 3:48 PM EDT us External Provider IMG CT PROCEDURES Edited Resul t - Final documented in this encounter Visit Diagnoses Not on filedocumented in this encounter Additional Health Concerns Assessment Noted Time A Body Mass Index follow-up plan has been documented for the patient 02/10/2025 11:06 AM EDT documented as of this encounter Care Teams Security Professional Relationship Specialty Start Date End Date Shankar Raya MD [address] [place] [address] [place] [id number] PCP - General 10/12/20 documented as of this encounter
--- OUTSIDE RECORDS SUMMARY | 2025-03-01 05:16 | XMS_ITS | Encounter Summary ---
Author Organization Healthcare Address [address] [place] [address] Care Team Providers Care Pre Sales Technical Consultant Name Role Phone Shankar Raya MD Primary Care Provider + [phone] Encounter Details Date Type Department Care Team (Late Contact Info) Description 02/20/2025 Orders Only External Location [address] [place] [address] Provider, External Social History Tobacco Use Types [...] Description 06/23/2025 10:40 AM EST Office Visit [facility] [address] [place] [address] Ira Neely, ART MUSEUM AIDE [address] [address] documented as of this encounter Procedures Procedure Name Priority Date/Time Associated Diagnosis Comments XR OUTSIDE IMAGES 02/20/2025 2:10 PM EDT documented in this encounter Results * XR OUTSIDE IMAGES (02/20/2025 2:10 PM EDT) Anatomical Region Laterality Modality Radiographic Miriam ging 02/20/2025 2:10 PM EDT us External Provider IMG XR PROCEDURES Edited Resul t - Final documented in this encounter Visit Diagnoses Not on filedocumented in this encounter Additional Health Concerns Assessment Noted Time A Body Mass Index follow-up plan has been documented for the patient 02/10/2025 11:06 AM EDT documented as of this encounter Care Teams Pre Sales Technical Consultant Relationship Specialty Start Date End Date Shankar Raya MD [address] [place] [address] [place] [id number] PCP - General 10/12/20 documented as of this encounter
--- OUTSIDE RECORDS SUMMARY | 2025-03-01 05:16 | XMS_ITS | Data Portability ---
Author Organization [place] - [facility] - [place] & K[facility] Wise ADMIN Address [address] [place] [address] Assessment No assessment recorded. Plan of Treatment Reminders Order Date Submit Date Provider Last Modified By Organization Details Last Modified Time Details Appointments None recorded. Lab None recorded. Referral None recorded. Procedures None recorded. Surgeries None recorded. Imaging None recorded. Medication Orders amoxicillin 875 mg tablet 2023 024 albertina [facility], [address] [place] [address], [address], 14:43:39 Patient TargetsNo targets recorded. Patient Instructions Encounter Date Encounter Id Patient Instructions Last Modified By Organization Details Last Modified Time 08/31/2023 [id number] I do not have th e actual images available to me for CT review for Mr. Rivero. I will be able to get those in the next day or 2 and review personally. I would like to start him on oral antibiotics and I will see him back in the office in 1 week. Not available 09/02/2023 14:44:26 09/07/2023 [id number] Mr. Rivero has had resolution of his symptoms with regard to pain and swallowing. His scope in the office was not revealing for any tumors or masses although given his heavy alcohol and smoking history he is high risk for development of the head and neck cancer. I would like to repeat his CT scan in 3 months and will get that scheduled at [facility]. Not available 09/16/2023 15:16:49 Reason for Referral None Reported. Results Created Date Observation Date Name Description Value Unit Range Abnormal Flag Note LastModifiedBy Organization Detail LastModifiedTime 08/31/[address], neck, soft tissu e, w/ contr ast No observ ation record ed. [email or web address] Not Available 2023 08:58:57 08/31/[address], head + brain , w/o contr ast No observ ation record ed. [email or web address] Not Available 2023 09:01:06 08/31/[address], cervi fallon spine , w/o contr ast No observ ation record ed. [email or web address] Not Available 2023 09:04:32 Result Notes None recorded. Problems Name Problem SNOMED Code Status Onset Date Resolution Date Notes Provider Name and Address Organization Details Recorded Time Acute kidney injury 64981183 Active 2023 Dewayne Chay null, [place] - [facility] [place] & [place] 4 09:38:22 Compressi on fracture Active 2023 T12 Dewayne Chay [place] - [facility] [place] & [place] 4 09:38:49 Gastroeso phageal reflux disease 528530414 Active 2023 Dewayne Chay [place] - [facility] [place] 4 09:38:59 Adult failure to thrive syndrome 828737038 Active 2023 Dewayne [place] - [facility] [place] 4 09:39:12 Fall Active 2023 Dewayne [place] - [facility] [place] 4 09:39:30 Pain of left hip joint 993725447132 100 Active 2023 Dewayne [place] - [facility] [place] 4 09:39:54 Acute hyperkale juana 8807161 Active 2023 Dewayne [place] - [facility] [place] 4 09:40:06 Altered mental status 717061894 Active 2023 Dewayne [place] - [facility] [place] 4 09:40:25 Malignant neoplasm of prostate 389782784 Active 2023 Dewayne [place] - [facility] [place] 4 09:40:59 Severe chronic obstructi ve pulmonary disease 620390729 Active 2023 Dewayne [place] - [facility] [place] 4 09:41:27 Neuropath y 656169677 Active 2023 Dewayne [place] - [facility] [place] 4 09:41:38 Heavy tobacco smoker 351993340782 103 Active 2023 Dewayne [place] - [facility] [place] 4 09:42:01 Dyspnea on exertion 83513472 Active 2023 Deway[place] - [facility] [place] 4 09:42:19 Lesion of lung 512685161 Active 2023 Deway[place] - [facility] [place] 4 09:43:15 Chronic kidney disease 027523418 Active 2023 Deway[place] - [facility] [place] 4 09:43:25 Chronic pancreati tis 471052413 Active 2023 CHRONIC ALCOHOLIS M Deway[place] - [facility] [place] 4 09:44:10 History of malignant neoplasm of colon 813059157 Active 2023 Deway[place] [facility] [place] 4 09:45:00 Hypomagne semia 753491498 Active 2023 Deway[place] [facility] [place] 4 09:45:13 Type 2 diabetes mellitus 75971788 Active 2023 Deway[place] [facility] [place] 4 09:45:34 Alcoholis m 8752209 Active 2023 Deway[place] [facility] [place] 4 09:45:55 Hyperlipi demia 51035089 Active 2023 Deway[place] - [facility] [place] 4 09:46:12 Hypertens nico disorder 90367171 Active 2023 AASHISH Olea [facility] & [place] 4 09:46:20 Illiterac y 523404222 Active 2023 Dewayne balderas, AASHISH Wang [facility] - [place] & [place] 4 09:46:37 Problem Notes None recorded. Procedures Surgical History Date Name Laterality Status Provider Name and Address Organization Details Recorded Time 09/07/19 24 Fiberoptic Laryngoscopy completed Roopa Menjivar MD [address] [facility], [place], [address], AASHISH Wang [facility] & [place] 09/16/2023 15:13:42 excision of colon completed Dewayne PANTOJA [facility] & [place] 08/31/2023 09:49:28 prostatectomy completed Dewayne Wang [facility] & [place] 08/31/2023 09:50:06 Imaging Results None recorded. Procedure Notes None recorded. Medical Equipment None Reported. Allergies No known drug allergies Medications Name Sig Start Date Stop Date Status Note LastModified by Organization Details LastModified Time multivitamin tablet TAKE ONE TABLET BY MOUTH EVERY DAY active Not Available Not Available No t Available metformin 500 mg tablet active Not Available Not Available Not Available carvedilol 25 mg tablet Take 0.5 tablets twice a day by oral route for 30 days. active Not Available Not Available No t Available prednisone 10 mg tablet active Not Available Not Available Not Available doxycycline hyclate 100 mg capsule TAKE ONE CAPSULE BY MOUTH TWICE DAILY FOR 7 DAYS active Not Available Not Available No t Available carvedilol 12.5 mg tablet active Not Available Not Available Not Available nicotine 14 mg/24 hr daily transdermal patch Apply 1 patch every day by transdermal route for 30 days. active Not Available Not Available No t Available ipratropium 0.5 mg-albuterol 3 mg (2.5 mg base)/3 mL nebulization soln active Not Available Not Available Not Available ibuprofen 800 mg tablet active Not Available Not Available Not Available cephalexin 250 mg capsule active Not Available Not Available Not Available dextromethor cohen-guaifen esin 10 mg-100 mg/5 mL oral liquid Take 10 mL every 4 hours by oral route for 30 days. active Not Available Not Available No t Available prednisone 20 mg tablet active Not Available Not Available Not Available methylpredni solone 4 mg tablet active Not Available Not Available Not Available thiamine HCl (vitamin B1) 100 mg tablet Take 1 tablet every day by oral route for 30 days. active Not Available Not Available No t Available allopurinol 100 mg tablet active Not Available Not Available Not Available quetiapine 100 mg tablet Take 1 tablet twice a day by oral route for 30 days. active Not Available Not Available No t Available acetaminophe n 500 mg tablet active Not Available Not Available Not Available simvastatin 40 mg tablet Take 1 tablet every day by oral route at bedtime for 30 days. active Not Available Not Available No t Available disulfiram 250 mg tablet TAKE ONE TABLET BY MOUTH ONCE DAILY DO NOT TAKE UNTIL AT LEAST 12 HOURS ABSTINENCE FROM ALCOHOL --AVOID ANY PRODUCT(S) CONTAINING ALCOHOL WHILE TAKING THIS MEDICATION- - active Not Available Not Available No t Available amoxicillin 875 mg tablet Take 1 tablet every 12 hours by oral route for 7 days. 2023 active Not Available Not Available Not Avai lable magnesium oxide 400 mg (241.3 mg magnesium) tablet Take 1 tablet twice a day by oral route for 30 days. active Not Available Not Available No t Available Novolin R Regular U-100 Insulin 100 unit/mL injection solution active Not Available Not Available Not Available cephalexin 500 mg capsule active Not Available Not Available Not Available metformin 1,000 mg tablet TAKE 1/2 TABLET BY MOUTH TWICE DAILY active Not Available Not Available No t Available buspirone 10 mg tablet TAKE ONE TABLET BY MOUTH TWICE DAILY active Not Available Not Available No t Available gabapentin 300 mg capsule active Not Available Not Available Not Available omeprazole 20 mg capsule,bijan yed release TAKE ONE CAPSULE BY MOUTH EVERY DAY active Not Available Not Available No t Available ergocalcifer ol (vitamin D2) 1,250 mcg (50,000 unit) capsule TAKE ONE CAPSULE BY MOUTH twice a WEEK active Not Available Not Available No t Available irbesartan 150 mg tablet TAKE ONE TABLET BY MOUTH EVERY DAY active Not Available Not Available No t Available methylpredni solone 4 mg tablets in a dose pack active Not Available Not Available No t Available colchicine 0.6 mg tablet Take 1 tablet every day by oral route for 30 days. active Not Available Not Available No t Available acetaminophe n 500 mg capsule Take 1 capsule every 4 hours by oral route as needed for 30 days. active Not Available Not Available No t Available Ventolin HFA 90 mcg/actuatio n aerosol inhaler Inhale 2 puffs 4 times a day by inhalation route. active Not Available Not Available No t Available duloxetine 60 mg capsule,bijan yed release active Not Available Not Available Not Available pregabalin 50 mg capsule Take 1 capsule twice a day by oral route for 30 days. active Not Available Not Available No t Available pregabalin 100 mg capsule active Not Available Not Available Not Available multivitamin 1 tablet daily for 30 days active Not Available Not Available No t Available Vivitrol 380 mg intramuscula r suspension,e xtended release active Not Available Not Available Not Available quetiapine ER 200 mg tablet,exten ded release 24 hr TAKE ONE TABLET BY MOUTH ONCE DAILY IN THE EVENING active Not Available Not Available Not Available levocetirizi ne 5 mg tablet Take 1 tablet every day by oral route for 30 days. active Not Available Not Available No t Available Tradjenta 5 mg tablet Take 1 tablet every day by oral route for 30 days. active Not Available Not Available No t Available Basaglartemio RonnyikPen U-100 Insulin 100 unit/mL (3 mL) subcutaneous active Not Available Not Available Not Available Trelegy Ellipta 100 mcg-62.5 mcg-25 mcg powder for inhalation INHALE 1 PUFF BY MOUTH EVERY DAY --RINSE MOUTH AFTER USE-- active Not Available Not Available No t Available Zenpep 10,000 unit-32,000 unit-42,000 unit capsule,bijan yed release Take 1 capsule twice a day by oral route for 30 days. active Not Available Not Available No t Available Trelegy Ellipta 200 mcg-62.5 mcg-25 mcg powder for inhalation Inhale 1 puff every day by inhalation route for 30 days. active Not Available Not Available No t Available Vitals Date Recorded Body height Body mass index (BMI) Body weight Oxygen saturation Oxygen saturation in Arterial blood by Pulse oximetry Heart rate Systolic And Diastolic Provider Name and Address Organization Details Last Updated DateTime 4 180.34 cm 18.1 kg/m2 82951.0 1 g 90 % 90 % 86 /min 112/72 mm[Hg] Kaylah Talamantes [place] - [facility] & [place] 4 15:56:22 Social History Question Answer Notes LastModified by Organizat ion Details LastModified Time Tobacco Smoking Status Current Every Day Smoker Dewayne Cartwright sher[place], [place] - [place] - [place] & [place] 08/31/2023 09:48:54 How Many Years Have You Consumed Alcohol? 40 [email or web address] Information not available 08/31/2023 Which Illicit Or Recreational Drugs Have You Used? [email or web address] Information not available 08/31/2023 At What Age Did You Start Smoking Tobacco? 10 [email or web address] Information not available 08/31/2023 How Much Tobacco Do You Smoke? 2 PPD Information not available 08/31/2023 How Many Years Have You Smoked Tobacco? 58 [email or web address] Information not available 08/31/2023 Sex: Unknown Functional Status Question Answer Note LastModified by Organizat ion Details LastModified Time Do you use any illicit or recreational drugs? Yes [email or web address] Information not available 08/31/2023 What is your level of alcohol consumption? Heavy [email or web address] Information not available 08/31/2023 Mental Status None recorded. Family History Nothing Reported. Medical History Condition Response Allergies/Hayfever Y Heart Problems N None N Heart Conditions N Emphysema N Migraines N Thyroid Problems N Developmental Delay N Depression Y Glaucoma N Anemia Y Immune System Disorder N Anesthesia Complications N Heart Attack ([place]) N Anxiety Disorder Y Diabetes Y Bleeding Disorder N Arthritis N Hearing Loss N Tuberculosis N Acid Reflux (GERD) Y Hyperlipidemia Y Cancer Y Stroke N Asthma Y Sleep Disorder N GERD/Reflux Y Heart Disease N Fibromyalgia N Headaches N Hypertension Y Speech Delay N Kidney Disease Y Past Encounters Encounter ID Performer Location Encounter Start Date Encounter Closed Date Diagnosis/Indication Diagnosis SNOMED-CT Code Diagnosis ICD10 Code Diagnosis IMO Codes Diagnosis Note [id number] Roopa Menjivar MD [facility] [address] [place] [address] [place] [id number] 08/31/2023 15:23:15 08/31/2023 16:11:46 Pain in throat 528498387 R07.0 Cigarette smoker 2937767 7 F17.210 Current drinker 373614 F10.90 [id number] Roopa Menjivar MD [facility] [address] [place] [address] 09/07/2023 11:54:03 09/07/2023 12:47:27 Harmful pattern of use of alcohol 90998902 F10.10 Tobacco user 575386352 Z 72.0 Imaging re sult abnormal 829583694 R93.89 Health Concerns Section Related Observation LastModified by Organization Detai ls LastModified Time None Recorded Concern Status LastModified by Organization Details LastModified Time None Recorded Advance Directives Directive None Recorded Payers Insurance Date Sequence Insurance Name Policy Number Policy Garcia Covered Member ID Garcia Member ID Guarantor Name 12/31/2023 1 [place] Noah Rivero [id number] Noah Rivero 05/15/2023 2 UNSPECIFIED REMIT PAYOR Noah Rivero 12/31/2023 2 [employer] [facility] (MEDICAID HMO) Noah Rivero [id number] Noah Rivreo Notes Date Note Type Note Provider Name and Address Organization Details Recorded Time 08/31/2023 text/html 68yo male referred by [facility] emergency room for incidental finding of oral lesion. Patient [facility] in [facility]. Was seen in the ER last night for difficulty swallowing, right sided neck pain that elevates to right muslim. Had CT of head and neck. CT neck showed an oral lesion/growth on the right side floor of mouth measuring 4.0cm x 3.3cm. States he called his daughter on Thursday letting her know there was a spot in his mouth that has come up and was having a hard time swallowing. Patient started smoking at the age of 10. Has smoked at least 2ppd at least 30+ years. Since being in the [facility] (approximately 4 months) has reduced his smoking to 1ppd. Does have a history of alcoholism. He has been losing weight. He attributes this to not liking the food being served at the [facility]. Roopa Menjivar MD [address], [place], [address], [facility] & [place] 09/02/2023 14:44:48 09/07/2023 text/html ROS as noted in the HPI Patient is here for follow up, states his throat pain has resolved after starting the amoxicillin. Reports he is eating better and denies any difficulty swallowing. Roopa Menjivar MD [address], [place], [address], [facility] - [place] - [place] & [place] 09/16/2023 15:17:57
--- OUTSIDE RECORDS SUMMARY | 2025-03-01 05:16 | XMS_ITS | Clinical Summary ---
Author Organization [facility] Address [address] [place] [address] Care Team Providers Care Natural Gas Inspector Name Role Phone Shankar Raya MD Primary Care Provider + [phone] Allergies No known active allergies Medications DULoxetine [...] syrup Take by mouth. Ac tive pancrelipase, Fyp-Aeby-Rrkd, (Zenpep) 11146[address] units capsule delayed-releas e particles capsule Take [...] Encounters Date Type Department Care Team Description 02/20/2025 Orders Only External Location [address] [place] [phone] Provider, External 02/20/2025 Orders Only External Location [address] [place] [address] Provider, External 02/20/2025 Orders Only External Location [address] [place] [address] Provider, External 02/10/2025 10:40 AM EDT Office Visit [facility] [address] [address] Ira Neely APRN CKD (chronic kidney disease) stage 4, GFR 15-29 ml/min ([facility]) (Primary Dx); Essential hypertension; Diabetes mellitus due to underlying condition with diabetic chronic kidney disease, unspecified CKD stage, unspecified whether intermediate frame tender insulin use ([facility]); Chronic kidney disease-mineral and bone [...] Description 06/23/2025 10:40 AM EST Office Visit [facility] [address] [place] [address] Ira Neely, ARTIST SUSPECT [address] [facility] [address] [place] [address] Health Maintenance Due Date Last Done Comments [facility]-Depression Screening 1955 [facility]-Diabetes: Hemoglobin A1C 1955 [facility]-Hepatitis C Screening 1955 [facility]-Medicare Annual Wellness (AWV) 1955 [facility]-Infant/Child/Adol SDOH Screenings [...] 05/15/2018 [facility]-Abdominal Aortic Aneurysm (AAA) Screening 2020 [id number] Vaccine (2 - 2024- season) 2025 10/05/2020 [...] on patient's age to complete this topic Procedures Procedure Name Priority Date/Time Associated Diagnosis Comments CT THORACIC OUTSIDE IMAGES 02/20/2025 3:[address] NEURO OUTSIDE IMAGES 02/20/2025 2:13 PM EDT XR OUTSIDE IMAGES 02/20/2025 2:10 PM EDT from Last 3 Months Results * CT THORACIC OUTSIDE IMAGES (02/20/2025 3:48 PM EDT) Anatomical Region Laterality Modality Computed Tomogra phy 02/20/2025 3:48 PM EDT us External Provider IMG CT PROCEDURES Edited Resul t - Final * CT NEURO OUTSIDE IMAGES (02/20/2025 2:13 PM EDT) Anatomical Region Laterality Modality Computed Tomogra phy 02/20/2025 2:13 PM EDT us External Provider IMG CT PROCEDURES Edited Resul t - Final * XR OUTSIDE IMAGES (02/20/2025 2:10 PM EDT) Anatomical Region Laterality Modality Radiographic Miriam ging 02/20/2025 2:10 PM EDT us External Provider IMG XR PROCEDURES Edited Resul t - Final from Last 3 [place]ths [place] [address] [place] [address] [place] Care Teams Natural Gas Inspector Relationship Specialty Start Date End Date Shankar Raya MD [address] [place] [address] [place] [id number] PCP - General 10/12/20
[2025-03-01] MEDS: PIPERACILLIN/TAZO 4.5 GM in 0.9 % SODIUM CHLORIDE 100 ML IV (05:28)
--- NOTE | 2025-03-01 05:33 | EXP.HP ---
History of Present Illness *Admission Date: 03/01/25 *Reason for visit:: SOB *History of present illness: Patient is a 69-year-old male with past medical history of lung cancer who presents to the hospital due to shortness of breath. Patient reportedly was recommended hospice services on last admission however patient was not sure at that time patient came back to the hospital due to recurring symptoms of shortness of breath, on further evaluation patient was noted to have postobstructive pneumonia, patient wants to discuss further with pulmonary regarding next plan of care, patient seemed interested in enrolling in hospice care services. Patient otherwise denied chest pain nausea vomiting diarrhea constipation. [facility] Disclaimer: The information contained in this section may have been updated after the patient was seen, as this information can be updated by other users. Medical History Hilar lymphadenopathy Lung mass Encounter for special screening examination for neoplasm of respiratory organ Mitral regurgitation SOB (shortness of breath) T12 compression fracture [id number] kidney injury GERD (gastroesophageal reflux disease) Adult failure to thrive Fall Acute pain of left hip Acute hyperkalemia [place] (acute kidney injury) Altered mental status Prostate cancer COPD mixed type Neuropathy Frequent falls Abnormal computerized axial tomography of chest Tobacco abuse Smoking greater than 30 pack years Dyspnea on exertion Pulmonary emphysema Cavitary lesion of lung Lung abscess COVID COVID CKD (chronic kidney disease) Chronic pancreatitis due to chronic alcoholism Hyponatremia Pneumonia COPD (chronic obstructive pulmonary disease) Asthma Alcohol abuse Anxiety Depression Arthritis Irritable bowel syndrome (IBS) History of gastroesophageal reflux (GERD) Diabetes mellitus, type 2 Hypertension Hyperlipidemia Colon cancer Pneumonia Hypomagnesemia Hyponatremia Chronic pancreatitis Protein-calorie malnutrition, moderate Acute alcoholic pancreatitis Alcohol withdrawal Illiteracy Transaminitis Type 2 diabetes mellitus Macrocytic anemia Protein-calorie malnutrition, mild Acute renal failure Chronic alcohol abuse [place] (acute kidney injury) Polysubstance abuse Acute pancreatitis Alcoholic pancreatitis Alcoholism HTN (hypertension) COPD (chronic obstructive pulmonary disease) Hx of malignant neoplasm of colon Tobacco use disorder Surgical History History of cataract surgery S/P TURP History of colon resection History of colonoscopy Hx of prostatectomy Family History Mother Family history of diabetes mellitus type II Social History (Updated 09/26/25 @ 06:22 by Clementine Fermin RN) Smoking Status: Current every day smoker tobacco type: cigarettes packs per day: 1 years smoked: 54 quit status: has quit before second hand exposure: Yes alcohol intake: former counseling provided: provider counseling substance use type: marijuana current occupational status: disabled Travel in the last 8 weeks?: None household members: none housing: apartment lives independently: Yes (home health comes twice a week ) marital status: current occupational exposures/hazards: No caffeine: Yes (coffee) physical activity: none do you feel safe at home: Yes Other Medical History Have you received the Flu Vaccine for this season: No Have you received the Pneumonia Vaccine: No Review of Systems Review of Systems Review of systems:: pertinent systems reviewed and negative unless documented below Meds Home Medications and Allergies Home Medications ?Medication ?Instructions ?Recorded ?Confirmed ?Type fluticasone fur. 200 mcg-umeclid 1 inh inhalation DAILY 05/06/23 03/01/25 History 62.5 mcg-vilant 25 mcg inhalat.powder (Trelegy Ellipta) [id number] 1 cap PO TID 05/06/23 03/01/25 History 10,000-32,000-42,000 unit capsule,delayed rel (Zenpep) simvastatin 40 mg tablet 40 mg PO HS 05/06/23 03/01/25 History acetaminophen 500 mg tablet 500 mg PO Q4HP PRN pain/fever 07/22/23 03/01/25 History gabapentin 300 mg capsule 300 mg PO BID 30 days #60 caps 03/28/24 03/01/25 Rx carvedilol 25 mg tablet 25 mg PO BID 30 days #60 tabs 04/10/24 03/01/25 Rx dapagliflozin propanediol 10 mg 10 mg PO DAILY #30 tabs 04/19/24 03/01/25 Rx tablet (Farxiga) diltiazem HCl 120 mg 120 mg PO HS 11/17/24 03/01/25 History tablet,extended release 24 hr duloxetine 60 mg capsule,delayed 60 mg PO DAILY 11/17/24 03/01/25 History release pantoprazole 40 mg tablet,delayed 40 mg PO DAILY 01/17/25 03/01/25 History release oxybutynin chloride 10 mg 10 mg PO DAILY 30 days #30 tabs 01/23/25 03/01/25 Rx tablet,extended release 24 hr dextromethorphan-guaifenesin 20 20 ml PO Q12HP PRN Cough 02/03/25 03/01/25 History mg-200 mg/15 mL oral liquid melatonin 3 mg capsule 9 mg PO HS PRN Sleep 02/03/25 03/01/25 History propylene glycol 0.6 % eye drops 1 drp Eye-Both TID 02/03/25 03/01/25 History (Systane Balance) albuterol sulfate 90 mcg/actuation 2 inh inhalation Q4HP PRN 02/12/25 03/01/25 History aerosol inhaler (Ventolin HFA) Shortness Of Breath buspirone 7.5 mg tablet 7.5 mg PO BID 02/12/25 02/20/25 History aspirin 81 mg chewable tablet 81 mg PO DAILY 30 days #30 tabs 02/14/25 03/01/25 Rx insulin glargine 100 unit/mL (3 20 unit SQ DAILY 02/20/25 03/01/25 History mL) subcutaneous pen (Basaglar KwikPen U-100 Insulin) tirzepatide 7.5 mg/0.5 mL 7.5 mg SQ WEEKLY on thursday02/20/25 02/20/25 History subcutaneous pen injector (Madeleine) hydrocodone 5 mg-acetaminophen 325 1 tab PO Q6HP PRN Moderate To 02/21/25 03/01/25 Rx mg tablet Severe Pain (4-10) 7 days #28 tabs losartan 100 1 tab PO DAILY /02/21/25 03/01/25 History mg-hydrochlorothiazide 25 mg tablet Held on 02/21/25. Instructions: Resume on 02/28/25. Blood pressures stable without this medication. multivitamin 1 tab PO DAILY 02/21/25 03/01/25 History nystatin 100,000 unit/mL oral 600,000 unit (6 mL) PO TID 10 days 02/22/25 03/01/25 Rx suspension #180 mL amoxicillin 500 mg-potassium 1 tab PO Q12H 7 days #14 tabs 02/28/25 03/01/25 Rx clavulanate 125 mg tablet (Augmentin) New Prescriptions to Start Prescriptions: Allergies Allergy/AdvReac Type Severity Reaction Status Date / Time No Known Allergies Allergy Verified 02/22/25 14:32 Exam Data for Last 24 hours Vital signs and Labs for Last 24 Hours: Temp Pulse Resp BP Pulse Ox O2 Del Method O2 Flow Rate 98.5 F 77 17 132/75 95 Nasal Cannula 2 03/01/25 04:37 03/01/25 05:15 03/01/25 05:15 03/01/25 05:01 03/01/25 05:15 03/01/25 04:53 03/01/25 04:53 Laboratory Results - last 24 hr 03/01/25 04:28: VBG pH 7.24 L, VBG pCO2 56.8 H, VBG pO2 65.5 H, VBG HCO3 23.6, VBG Total CO2 25.4, VBG O2 Saturation 90.9 H, VBG Base Excess -3.8 L, VBG Lactic Acid 1.3 03/01/25 04:30: WBC 14.1 H, RBC 4.33 L, Hgb 11.3 L, Hct 36.8 L, MCV 85.0, MCH 26.1 L, MCHC 30.7 L, RDW 15.8, Plt Count 185, MPV 10.3, Neut % (Auto) 78.8, Lymph % (Auto) 9.6 L, [place] % (Auto) 8.9, Eos % (Auto) 1.4, Baso % (Auto) 0.2, Neut # (Auto) 11.1 H, Lymph # (Auto) 1.4, [place] # (Auto) 1.3 H, Eos # (Auto) 0.2, Baso # (Auto) 0.0, PT 13.6 H, INR 1.25 H, Sodium 132 L, Potassium 5.0, Chloride 98, Carbon Dioxide 25, Anion Gap 14.0, BUN 30 H, Creatinine 1.60 H, Estimated GFR 43 L, Est GFR ( Amer) 52 L, Glucose 157 H, Calcium 8.5, Total Bilirubin 0.6, AST 20, ALT 12, Alkaline Phosphatase 106, NT-Pro-B Natriuret Pep 6660 H, Total Protein 5.6 L, Albumin 3.1 L, Globulin 2.5, Albumin/Globulin Ratio 1.2 I & O for Last 24 hours: Intake & Output 09/28/25 09/29/25 09/30/25 10/01/25 23:59 23:59 23:59 23:59 Intake Total 50 / 50 Balance 50 / 50 Weight 70.307 kg Constitutional Constitutional: no acute distress *Routine HEENT Exam Head: Present normocephalic Eye: Present EOMI and PERRL ENT: Present mucous membranes moist *Routine Neck Exam Neck: Present supple; Absent lymphadenopathy *Routine Respiratory Exam Respiratory: Present distant breath sounds and diminished air movement *Routine Cardiovascular Exam Cardiovascular: Present RRR *Routine Abdominal Exam Abdominal: Present soft and normoactive bowel sounds; Absent tenderness *Routine Rectal Exam Rectal:: deferred *Routine Genitalia Exam Genitalia:: deferred *Routine Extremities Exam Extremities: Absent cyanosis, clubbing or edema *Routine Skin Exam Skin: Present warm; Absent rash *Routine Neurological Exam Neurological: Present alert and oriented X3 Assessment and Plan *Assessment and plan (1) Respiratory failure with hypoxia and hypercapnia: Status: Acute Category: Medical Code(s): J96.91 - Respiratory failure, unspecified with hypoxia; J96.92 - Respiratory failure, unspecified with hypercapnia (2) Pneumonia: Status: Acute Qualifiers: Laterality: left Category: Medical Code(s): J18.9 - Pneumonia, unspecified organism (3) Lung cancer: Status: Acute Category: Medical Code(s): C34.90 - Malignant neoplasm of unspecified part of unspecified bronchus or lung Plan Patient is a 69-year-old male with past medical history of lung cancer who presents to the hospital due to shortness of breath. Patient reportedly was recommended hospice services on last admission however patient was not sure at that time patient came back to the hospital due to recurring symptoms of shortness of breath, on further evaluation patient was noted to have postobstructive pneumonia, patient wants to discuss further with pulmonary regarding next plan of care, patient seemed interested in enrolling in hospice care services. Patient otherwise denied chest pain nausea vomiting diarrhea constipation. Assessment and plan COPD exacerbation Postobstructive pneumonia Lung cancer DuoNebs Solu-Medrol Start IV antibiotics with vancomycin, Zosyn Consult pulmonary Continue oxygen supplementation Consult social work manager for possible indwelling and hospice services Chronic medical conditions CKD stage IV CAD Prostate cancer Diabetes mellitus Hypertension Tobacco use Plan resume home medications when confirmed Order insulin sliding scale DVT prophylaxis-subcutaneous heparin
[2025-03-01 05:51] LABS: Troponin I 0.09 ng/ml (0.00-0.034)
--- NOTE | 2025-03-01 05:51 | PC.NURSE ---
Spoke with Iram CHIRINOS at [facility], updated her on pt being admitted and his family aware
[2025-03-01] MEDS: VANCOMYCIN CONSULT REQUEST 1 EACH NOTAPPLIC (06:09)
--- NOTE | 2025-03-01 06:12 | PC.NURSE ---
Patient arrived to floor via stretcher from ED at 05:57.
[2025-03-01] MEDS: VANCOMYCIN/WATER FOR INJ (PEG) 1.25 GM/250 ML PIGGYBACK IV (06:19)
[2025-03-01] MEDS: MORPHINE 2MG/ML SYRINGE 2 MG IV (06:35)
[2025-03-01] MEDS: IPRATROPIUM/ALBUTEROL 3 ML NEB IH ×4 (07:31→21:39)
[2025-03-01] MEDS: SODIUM CHLORIDE 3% 15ML NEB 3 ML IH (07:32)
[2025-03-01 07:36] LABS: ABG HCO3 23.5 mmhg (22.0-26.0); ABG PO2 105.4 mmhg (80-100); ABG TCO2 25.6 mmhg (23-27)
[2025-03-01 07:39] LABS: ABG PH 7.14 mmol/L (7.35-7.45); PEEP 40L/100%; Source Right Radial
[2025-03-01 07:40] LABS: ABG PCO2 69.9 mmhg (35.0-45.0)
--- NOTE | 2025-03-01 07:53 | SW/DCPLANNER ---
Addendum entered by Pat Godoy 03/03/25 10:38: I called [facility] and spoke w/ Lauren to inform her that this patient will return today ICF level of care. Original Note: Patient currently resides at [facility] I[facility] level of care. Updated patient information will be faxed to Nyla galicia/ [facility]. Discharge date is unknown at this time.
--- NOTE | 2025-03-01 08:01 | PC.NURSE ---
pt to the unit via stretcher from [facility]. pt arrived on non breather and transitioned to the bipap once moved over. pt currently on 40% O2 on Bipap
[2025-03-01] MEDS: ALBUTEROL 0.083% 2.5 MG/3 ML NEB 20 MG IH (08:09)
[2025-03-01] MEDS: METHYLPREDNISOLONE SOD SUCC 125MG VIAL 60 MG IV ×3 (08:15→20:17)
[2025-03-01 08:28] LABS: Hematocrit 36.2 % (42.0-52.0); Hemoglobin 11.1 g/dL (14.1-18.0); Immature Granulocytes % 1.2 %; Mean Corpuscular HGB Conc 30.7 g/dL (31.8-35.4); Mean Corpuscular Hemoglobin 26.4 pg (27.0-31.2); Mean Corpuscular Volume 86.0 fl (80-94); Nucleated Red Blood Cells % 0 %; Platelet Count 180 K/mm3 (142-424); Red Blood Count 4.21 M/mm3 (4.60-6.20); Red Cell Distribution Width-SD 49.1 fL; White Blood Count 12.4 K/mm3 (4.8-10.8)
[2025-03-01 08:48] LABS: Troponin I 0.09 ng/ml (0.00-0.034)
--- NOTE | 2025-03-01 09:00 | PC.NURSE ---
pt is becoming increasingly agitated on the Bipap. pt stated he feels anxious while wearing it. Dr. Auguste notified and ordered pt PRN Xanax.
--- NOTE | 2025-03-01 09:06 | P.CONS_ITS ---
History of Present Illness History of present illness: Mr. Rivero is a 69-year-old male following in pulmonary clinic for exertional dyspnea chronic hypoxic respiratory failure emphysema and lung mass s/p biopsy awaiting pathology presented to ER with worsening respiratory distress and pulmonary was called for further evaluation and management. [facility] Disclaimer: The information contained in this section may have been updated after the patient was seen, as this information can be updated by other users. Medical History (Updated 03/01/25 @ 11:24 by Latha Queen MD) Acute on chronic respiratory failure with hypoxia and hypercapnia Hilar lymphadenopathy Lung mass Encounter for special screening examination for neoplasm of respiratory organ Mitral regurgitation SOB (shortness of breath) T12 compression fracture [id number] kidney injury GERD (gastroesophageal reflux disease) Adult failure to thrive Fall Acute pain of left hip Acute hyperkalemia [place] (acute kidney injury) Altered mental status Prostate cancer COPD mixed type Neuropathy Frequent falls Abnormal computerized axial tomography of chest Tobacco abuse Smoking greater than 30 pack years Dyspnea on exertion Pulmonary emphysema Cavitary lesion of lung Lung abscess COVID COVID CKD (chronic kidney disease) Chronic pancreatitis due to chronic alcoholism Hyponatremia Pneumonia COPD (chronic obstructive pulmonary disease) Asthma Alcohol abuse Anxiety Depression Arthritis Irritable bowel syndrome (IBS) History of gastroesophageal reflux (GERD) Diabetes mellitus, type 2 Hypertension Hyperlipidemia Colon cancer Pneumonia Hypomagnesemia Hyponatremia Chronic pancreatitis Protein-calorie malnutrition, moderate Acute alcoholic pancreatitis Alcohol withdrawal Illiteracy Transaminitis Type 2 diabetes mellitus Macrocytic anemia Protein-calorie malnutrition, mild Acute renal failure Chronic alcohol abuse [place] (acute kidney injury) Polysubstance abuse Acute pancreatitis Alcoholic pancreatitis Alcoholism HTN (hypertension) COPD (chronic obstructive pulmonary disease) Hx of malignant neoplasm of colon Tobacco use disorder Surgical History History of cataract surgery S/P TURP History of colon resection History of colonoscopy Hx of prostatectomy Family History Mother Family history of diabetes mellitus type II Social History (Updated 02/24/25 @ 06:22 by Clementine Fermin RN) Smoking Status: Current every day smoker tobacco type: cigarettes packs per day: 1 years smoked: 54 quit status: has quit before second hand exposure: Yes alcohol intake: former counseling provided: provider counseling substance use type: marijuana current occupational status: disabled Travel in the last 8 weeks?: None household members: none housing: apartment lives independently: Yes (home health comes twice a week ) marital status: current occupational exposures/hazards: No caffeine: Yes (coffee) physical activity: none do you feel safe at home: Yes Review of Systems Constitutional Constitutional: Reports anorexia, Reports body ache(s), Reports difficulty sleeping, Reports fatigue and Reports lethargy Eyes Eyes: Denies eye discharge, Denies dry eyes, Denies irritation and Denies itchy eyes ENT Ears, Nose, Mouth, and Throat: Denies epistaxis, Denies facial pain, Denies lip swelling and Denies throat swelling *Cardiovascular Cardiovascular: Reports dyspnea and Reports dyspnea on exertion *Respiratory Respiratory: Denies change in phlegm color, Reports chest congestion, Reports cough, Reports dyspnea, Reports dyspnea on exertion, Reports excessive phlegm production, Denies hemoptysis, Denies pain on inspiration, Denies pain with cough and Reports wheezing *Gastrointestinal Gastrointestinal: Denies abdominal pain, Denies belching and Denies cramping *Musculoskeletal Musculoskeletal: Reports back pain, Reports myalgias and Reports other (No small joint swelling or Pain) Psychiatric Psychiatric: Denies homicidal ideation and Denies suicidal ideation Endocrine Endocrine: Reports fatigue and Denies heat intolerance Hematologic/Lymphatic Hematologic/Lymphatic: Denies easy bleeding and Denies lymphadenopathy Allergic/Immunologic Allergic/Immunologic: Denies itchy eyes, Denies lip swelling, Denies throat swelling and Reports wheezing Pulmonology Exam Inpatient Vital signs and Labs for Last 24 Hours: Temp Pulse Resp BP Pulse Ox O2 Del Method O2 Flow Rate 97.8 F 74 13 108/69 L 94 L BiPAP 30 03/01/25 08:33 03/01/25 08:33 03/01/25 08:33 03/01/25 08:33 03/01/25 08:33 03/01/25 08:33 03/01/25 07:46 FiO2 50 03/01/25 08:05 Laboratory Results - last 24 hr 03/01/25 04:28: VBG pH 7.24 L, VBG pCO2 56.8 H, VBG pO2 65.5 H, VBG HCO3 23.6, VBG Total CO2 25.4, VBG O2 Saturation 90.9 H, VBG Base Excess -3.8 L, VBG Lactic Acid 1.3 03/01/25 04:30: WBC 14.1 H, RBC 4.33 L, Hgb 11.3 L, Hct 36.8 L, MCV 85.0, MCH 26.1 L, MCHC 30.7 L, RDW 15.8, Plt Count 185, MPV 10.3, Neut % (Auto) 78.8, L ymph % (Auto) 9.6 L, [place] % (Auto) 8.9, Eos % (Auto) 1.4, Baso % (Auto) 0.2, N eut # (Auto) 11.1 H, Lymph # (Auto) 1.4, [place] # (Auto) 1.3 H, Eos # (Auto) 0.2, Baso # (Auto) 0.0, PT 13.6 H, INR 1.25 H, Sodium 132 L, Potassium 5.0, Chloride 98, Carbon Dioxide 25, Anion Gap 14.0, BUN 30 H, Creatinine 1.60 H, Estimated GFR 43 L, Est GFR ( Amer) 52 L, Glucose 157 H, Calcium 8.5, Total Bilirubin 0.6, AST 20, ALT 12, Alkaline Phosphatase 106, Troponin I 0.09 H, N T-Pro-B Natriuret Pep 6660 H, Total Protein 5.6 L, Albumin 3.1 L, Globulin 2.5, Albumin/Globulin Ratio 1.2 03/01/25 07:21: Specimen Source Right radial, ABG pH 7.14 L*, ABG pCO2 69.9 H, A BG pO2 105.4 H, ABG HCO3 23.5, ABG Total CO2 25.6, ABG O2 Saturation 97, ABG Base Excess -5.5 L, Keith Test Acceptable, PEEP 40l/100% 03/01/25 08:20: WBC 12.4 H, RBC 4.21 L, Hgb 11.1 L, Hct 36.2 L, MCV 86.0, MCH 26.4 L, MCHC 30.7 L, RDW 15.8, Plt Count 180, MPV 10.0, Neut % (Auto) 93.6 H, L ymph % (Auto) 3.9 L, [place] % (Auto) 1.0 L, Eos % (Auto) 0.1, Baso % (Auto) 0.2, N eut # (Auto) 11.7 H, Lymph # (Auto) 0.5 L, [place] # (Auto) 0.1, Eos # (Auto) 0.0, Baso # (Auto) 0.0, Troponin I 0.09 H I & O for Labs for Last 24 Hours: Intake & Output 02/26/25 02/27/25 02/28/25 03/01/25 23:59 23:59 23:59 23:59 Intake Total 150 / 150 Balance 150 / 150 Weight 146 lb 9.6 oz Microbiology Reports for the Last 24 Hours: Microbiology 02/12/25 12:10 Sputum - Expectorated Sputum Gram Stain - Final 02/12/25 12:10 Sputum - Expectorated Sputum Sputum Culture - Preliminary Constitutional: Present severe distress Head: Present normocephalic and atraumatic ENT: Present normal exam, normal oropharynx and mucous membranes moist Neck: Present normal inspection and full ROM Respiratory: Present prolonged expiratory phase, respiratory distress, distant breath sounds and diminished air movement; Absent able to speak in complete sentences Cardiac: Present S1/S2, Tachycardia and radial pulses present GI: Present soft and distention; Absent tenderness or guarding Skin: Present intact; Absent cyanosis or jaundice Neuro: Present awake; Absent alert or oriented x 3 Extremities: Present normal inspection; Absent clubbing or cyanosis Psychiatric: Present unable to assess Meds Home Medications and Allergies Home Medications ?Medication ?Instructions ?Recorded ?Confirmed ?Type simvastatin 40 mg tablet 40 mg PO HS 05/06/23 5 History acetaminophen 500 mg tablet 500 mg PO Q6HP PRN pain/fe pedro luis 07/22/23 03/01/25 History gabapentin 300 mg capsule 300 mg PO BID 30 days #60 ca ps 03/28/24 03/01/25 Rx carvedilol 25 mg tablet 25 mg PO BID 30 days #60 tab s 04/10/24 03/01/25 Rx dapagliflozin propanediol 10 mg 10 mg PO DAILY #30 tab s 04/19/24 03/01/25 Rx tablet (Farxiga) diltiazem HCl 120 mg 120 mg PO HS 11/17/24 History tablet,extended release 24 hr duloxetine 60 mg capsule,delayed 60 mg PO DAILY 03/01/25 History release pantoprazole 40 mg tablet,delayed 40 mg PO DAILY 01/1703/01/25 History release oxybutynin chloride 10 mg 10 mg PO DAILY 30 days #30 t abs 01/23/25 03/01/25 Rx tablet,extended release 24 hr dextromethorphan-guaifenesin 20 20 ml PO Q12HP PRN Cou gh 02/03/25 03/01/25 History mg-200 mg/15 mL oral liquid melatonin 3 mg capsule 9 mg PO HS PRN Sleep 5 03/01/25 History propylene glycol 0.6 % eye drops 1 drp Eye-Both TID 03/01/25 History (Systane Balance) aspirin 81 mg chewable tablet 81 mg PO DAILY 30 days # 30 tabs 02/14/25 03/01/25 Rx insulin glargine 100 unit/mL (3 20 unit SQ DAILY 02/2003/01/25 History mL) subcutaneous pen (Basaglar KwikPen U-100 Insulin) hydrocodone 5 mg-acetaminophen 325 1 tab PO Q6HP PRN M oderate To 02/21/25 03/01/25 Rx mg tablet Severe Pain (4-10) 7 days #2 8 tabs losartan 100 1 tab PO DAILY 100/25MG 01/3103/01/25 History mg-hydrochlorothiazide 25 mg tablet Held on 02/21/25. Instructions: Resume on 02/28/25. Blood pressures stable without this medication. multivitamin 1 tab PO DAILY 02/21/25 1006/25 History nystatin 100,000 unit/mL oral 600,000 unit (6 mL) PO T ID 10 days 02/22/25 03/01/25 Rx suspension #180 mL amoxicillin 500 mg-potassium 1 tab PO Q12H 7 days #14 tabs 02/28/25 03/01/25 Rx clavulanate 125 mg tablet (Augmentin) albuterol sulfate 1.25 mg/3 mL 1.25 mg inhalation Q4HP PRN 03/01/25 03/01/25 History solution for nebulization Shortness Of Breath ipratropium 0.5 mg-albuterol 3 mg 3 ml inhalation QIDP PRN Shortness 03/01/25 03/01/25 History (2.5 mg base)/3 mL nebulization Of Breath soln lorazepam 0.5 mg tablet 0.5 mg PO TID 03/01/2503/01 History New Prescriptions to Start Prescriptions: Allergies Allergy/AdvReac Type Severity Reaction Status Date / Time No Known Allergies Allergy Verified 02/22/25 14:32 Results Laboratory Findings 03/01/25 08:20 03/01/25 08:20 ABG ABG pH 7.14 mmol/L (7.35-7.45) L* 03/01/25 07:21 ABG pCO2 69.9 mmhg (35.0-45.0) H 03/01/25 07:21 ABG pO2 105.4 mmhg (80-100) H 03/01/25 07:21 ABG O2 Saturation 97 % (90-100) 03/01/25 07:21 PT/INR, D-dimer PT 13.6 seconds (10.1-12.5) H 03/01/25 04:30 INR 1.25 (0.9-1.1) H 03/01/25 04:30 Abnormal lab findings: Abnormal Labs 03/01/25 03/01/25 03/01/25 04:28 04:30 07:21 WBC 14.1 H RBC 4.33 L Hgb 11.3 L Hct 36.8 L MCH 26.1 L MCHC 30.7 L Neut % (Auto) Lymph % (Auto) 9.6 L [place] % (Auto) Neut # (Auto) 11.1 H Lymph # (Auto) [place] # (Auto) 1.3 H PT 13.6 H INR 1.25 H ABG pH 7.14 L* ABG pCO2 69.9 H ABG pO2 105.4 H ABG Base Excess -5.5 L VBG pH 7.24 L VBG pCO2 56.8 H VBG pO2 65.5 H VBG O2 Saturation 90.9 H VBG Base Excess -3.8 L Sodium 132 L BUN 30 H Creatinine 1.60 H Estimated GFR 43 L Est GFR ( Amer) 52 L Glucose 157 H Troponin I 0.09 H NT-Pro-B Natriuret Pep 6660 H Total Protein 5.6 L Albumin 3.1 L 03/01/25 08:20 WBC 12.4 H RBC 4.21 L Hgb 11.1 L Hct 36.2 L MCH 26.4 L MCHC 30.7 L Neut % (Auto) 93.6 H Lymph % (Auto) 3.9 L [place] % (Auto) 1.0 L Neut # (Auto) 11.7 H Lymph # (Auto) 0.5 L [place] # (Auto) PT INR ABG pH ABG pCO2 ABG pO2 ABG Base Excess VBG pH VBG pCO2 VBG pO2 VBG O2 Saturation VBG Base Excess Sodium BUN Creatinine Estimated GFR Est GFR ( Amer) Glucose Troponin I 0.09 H NT-Pro-B Natriuret Pep Total Protein Albumin Assessment and Plan *Assessment and plan (1) Pneumonia: Status: Acute Qualifiers: Laterality: left Category: Medical Code(s): J18.9 - Pneumonia, unspecified organism (2) Acute on chronic respiratory failure with hypoxia and hypercapnia: Status: Acute Category: Medical Code(s): J96.21 - Acute and chronic respiratory failure with hypoxia; J96.22 - Acute and chronic respiratory failure with hypercapnia Plan Mr. Rivero is a 69-year-old male following in pulmonary clinic for exertional dyspnea chronic hypoxic respiratory failure emphysema and lung mass s/p biopsy awaiting pathology presented to ER with worsening respiratory distress and pulmonary was called for further evaluation and management. Worsening cough productive phlegm and low-grade fevers and worsening mentation as an outpatient basis, initiated on Augmentin for presumed Corynebacterium striatum pneumonia. Chest x-ray upon admission prominent left-sided airspace disease significantly worsened from his most recent admission. Blood gas from this morning also showed worsening hypercarbic respiratory failure. Discussed with patients daughter yesterday, they would like to more options for better pain control and also at the same time to still want to pursue possible options for immunotherapy pending final biopsy results. Will follow. Plan: Initiate BiPAP therapy for the worsening hypercarbic respiratory failure. 12/01 on FiO2 50%. Follow-up with VBG in 2 hours. Follow-up blood cultures. DuoNebs every 4 hours along with Pulmicort Q12 scheduled Initiate linezolid for the noted worsening pneumonia. Sensitivities requested on BAL cultures. Will follow. DuoNebs every 6 hours along with Pulmicort every 12 schedule Follow with comprehensive respiratory viral PCR panel
[2025-03-01 09:24] LABS: RBC Morphology Normal; Total Cells Counted 100
--- NOTE | 2025-03-01 09:26 | HMH.PHAINT1 ---
Pharmacy Intervention Comments: HOME MEDICATION LIST VERIFIED USING LIST FROM NURSING MAR
[2025-03-01 09:44] LABS: Anion Gap 17.7 mEq/L (5-15); Blood Urea Nitrogen 33 mg/dl (9-20); Calcium 8.3 mg/dl (8.4-10.2); Carbon Dioxide 23 mmol/L (22.0-30.0); Chloride 97 mmol/L (98-107); Creatinine Clearance Estimated 36 mL/min (50-200); Creatinine,Serum 1.80 mg/dl (0.66-1.25); Estimated Glomerular Filt Rate 38 ml/min (>60); GFR (African American) 45 ML/MIN (>60); Glucose 187 mg/dl (74-100); Potassium 5.7 mmoL/L (3.5-5.1); Sodium 132 mmol/L (136-145)
[2025-03-01] MEDS: LIPASE/PROTEASE/AMYLASE 1 EACH CAPSULE.DR PO ×3 (09:59→17:20)
[2025-03-01] MEDS: ASPIRIN 81MG CHEWABLE TABLET 81 MG PO (09:59)
[2025-03-01] MEDS: humaLOG 100 UNITS/ML 10ML VIAL (SSI) SUBCUT ×3 (10:02→20:18)
[2025-03-01] MEDS: GABAPENTIN 300MG CAPSULE 300 MG PO ×2 (10:02→20:17)
--- OUTSIDE RECORDS SUMMARY | 2025-03-01 10:50 | XMS_ITS | Clinical Summary ---
Author Organization [facility] Address [address] [place] [address] Care Team Providers Care Computer Graphic Artist Name Role Phone Shankar Raya MD Primary Care Provider + [phone] Allergies No known active allergies Medications DULoxetine [...] syrup Take by mouth. Ac tive pancrelipase, Npb-[id number]-Xtgd, (Zenpep) 33415-[address] units capsule delayed-releas e particles capsule Take [...] Description 02/20/2025 Orders Only External Location [address] [place] [id number] Provider, External 02/20/2025 Orders Only External Location [address] [place] [id number] Provider, External 02/20/2025 Orders Only External Location [address] [place] [address] Provider, External 02/10/2025 10:40 AM EDT Office Visit [facility] [address] [address] Ira Neely APRN CKD (chronic kidney disease) stage 4, GFR 15-29 ml/min ([facility]) (Primary Dx); Essential hypertension; Diabetes mellitus due to underlying condition with diabetic chronic kidney disease, unspecified CKD stage, unspecified whether long term care administrator insulin use ([facility]); Chronic kidney disease-mineral and bone disorder; Anemia [...] Description 06/23/2025 10:40 AM EST Office Visit [facility] [address] [place] [address] Ira Neely, UNIT SECRETARY [address] [facility] [address] [place] [address] Health Maintenance Due Date Last [...] 05/15/2018 [facility]-Abdominal Aortic Aneurysm (AAA) Screening 2020 [id number] Vaccine (2 - 2024- season) 2025 10/05/2020 [...] from Last 3 [place] [address] [place] [address] [place] Care Teams Computer Graphic Artist Relationship Specialty Start Date End Date Shankar Raya MD [address] [place] [address] [place] [address] PCP - General 10/12/20
--- OUTSIDE RECORDS SUMMARY | 2025-03-01 10:50 | XMS_ITS | Encounter Summary ---
Author Organization Healthcare Address [address] [place] [address] Care Team Providers Care Design Teacher Name Role Phone Shankar Raya MD Primary Care Provider + [phone] Encounter Details Date Type Department Care Team (Late Contact Info) Description 02/20/2025 Orders Only External Location [address] [place] [address] Provider, External Social History Tobacco Use Types [...] Description 06/23/2025 10:40 AM EST Office Visit [facility] [address] [place] [address] Ira Neely, SLUNK SKIN CURER [address] [address] documented as of this encounter [...] documented as of this encounter Care Teams Design Teacher Relationship Specialty Start Date End Date Shankar Raya MD [address] [place] [address] [place] [address] PCP - General 10/12/20 documented as of this encounter
--- OUTSIDE RECORDS SUMMARY | 2025-03-01 10:50 | XMS_ITS | Encounter Summary ---
Author Organization Healthcare Address [address] [place] [address] Care Team Providers Care Security Messenger Name Role Phone Shankar Raya MD Primary Care Provider + [phone] Encounter Details Date Type Department Care Team (Late Contact Info) Description 02/20/2025 Orders Only External Location [address] [place] [address] Provider, External Social History Tobacco Use Types [...] Description 06/23/2025 10:40 AM EST Office Visit [facility] [address] [place] [address] Ira Neely, TONGUE AND GROOVE MACHINE OPERATOR [address] [address] documented as of this encounter [...] as of this encounter Care Teams Security Messenger Relationship Specialty Start Date End Date Shankar Raya MD [address] [place] [address] [place] [id number] PCP - General 10/12/20 documented as of this encounter
--- OUTSIDE RECORDS SUMMARY | 2025-03-01 10:50 | XMS_ITS | Encounter Summary ---
Author Organization Healthcare Address [address] [place] [address] Care Team Providers Care Dye Box Operator Name Role Phone Shankar Raya MD Primary Care Provider + [phone] Encounter Details Date Type Department Care Team (Late st Contact Info) Description 02/20/2025 Orders Only External Location [address] [place] [address] Provider, External Social History Tobacco Use Types [...] Description 06/23/2025 10:40 AM EST Office Visit [facility] [address] [place] [address] Ira Neely, FINISHED CLOTH CHECKER [address] [address] documented as of this encounter [...] documented as of this encounter Care Teams Dye Box Operator Relationship Specialty Start Date End Date Shankar Raya MD [address] [place] [address] [place] [address] PCP - General 10/12/20 documented as of this encounter
[2025-03-01 11:32] LABS: Lactate Venous 1.3 mmol/L (0.4-2.0); VBG HCO3 23.8 mmol/L (23-30); VBG PCO2 58.6 mmol/L (35-51); VBG PH 7.23 mmol/L (7.31-7.41); VBG PO2 60.7 mmol/L (28-40)
[2025-03-01] MEDS: LINEZOLID 600 MG/300 ML IV.SOLN 300 MG IV ×2 (11:59→23:44)
[2025-03-01 12:15] LABS: POC Glucose,Bedside 201 gm/dL (70-110)
--- NOTE | 2025-03-01 13:33 | EXP.CCNOTE ---
Critical Care Event Note Summary Code activated: No Narrative: This case had a high probability of a clinically significant, sudden, or life threatening deterioration of this patient's condition which required my full and direct attention, intervention and personal management. On morning rounds, patient became more dyspneic and had increased work of breathing. Necessitated escalation from nasal cannula to Vapotherm. Barely satting 90% on 40 L and 100%. Due to his work of breathing and poor air movement, decision made to escalate to ICU level of care and initiate BiPAP. Repeat blood gas obtained showing pH 7.14, pCO2 69, pO2 105. White count remains elevated at 12. Patient somnolent and mildly confused at time of evaluation. Escalated to ICU. Will adjust antibiotics to linezolid monotherapy based on BAL cultures from Thursday showing corynebacterium. Discontinue vancomycin and Zosyn. - Discussed case with pulmonology, will continue aggressive pulmonary toilet. - Further goals of care discussion pending patient's response to BiPAP and antibiotics - Seeing improvement in mentation after starting BiPAP. - Treating anxiety with low-dose Ativan per home regimen - Repeat CBC, CMP, magnesium ordered for the morning - Kidney function remained stable with BUN 30, creatinine 1.6 ICU/Critical care attestation This patient is critically ill with 35 minutes devoted solely to this patient managing life/organ supporting interventions that required physician assessment. This includes time spent making adjustments in ventilator settings, IV fluid administration, titration of pressors, adjustments of medications, discussion of patient with consultants and other care providers as well as updating patient and/or family (if patient by virtue of his/her condition is unable to participate in decision making). This does not include time spent performing separately billed procedures. Time is not concurrent with that of other providers. Critical care time: 30 - 74 mins [facility] Critical Care Exam Physical Exam Vital signs: Temp Pulse Resp BP Pulse Ox O2 Del Method O2 Flow Rate 97.1 F L 77 12 143/70 H 98 BiPAP 30 03/01/25 12:00 03/01/25 13:00 03/01/25 13:00 03/01/25 13:00 03/01/25 13:00 03/01/25 13:00 03/01/25 07:46 FiO2 50 03/01/25 12:00 Constitutional Constitutional: Present moderate distress, average body habitus, chronically ill appearing, cooperative and somnolent Routine HEENT Exam Head: Present normocephalic and atraumatic Routine Respiratory Exam Respiratory: Present accessory muscle use, prolonged expiratory phase, wheezes and diminished air movement; Absent rhonchi, crackles or normal respiratory effort Routine Cardiovascular Exam Cardiovascular: Present tachycardia
--- NOTE | 2025-03-01 13:46 | HMH.PTEV ---
Physical Therapy Evaluation Rehab PT IP Evaluation Start: 03/01/25 07:34 Freq: ONCE Status: Active Protocol: Document 03/01/25 13:39 REMINGTON (Rec: 03/01/25 13:46 REMINGTON [id number]) Subjective/History History History Per H&P: Patient is a 69-year-old male with past medical history of lung cancer who presents to the hospital due to shortness of breath. Patient reportedly was recommended hospice services on last admission however patient was not sure at that time patient came back to the hospital due to recurring symptoms of shortness of breath, on further evaluation patient was noted to have postobstructive pneumonia, patient wants to discuss further with pulmonary regarding next plan of care, patient seemed interested in enrolling in hospice care services. Patient otherwise denied chest pain nausea vomiting diarrhea constipation. Subjective Subjective Pt reports he used to live alone. Pt reports he used a RW and cane for IND ambulation. Pt is questionable historian. Confirm hx with CM. [facility] How much help from another person do you currently need... Turning from your None back to your side while in a flat bed without using bedrails? Moving from lying on None back to sitting on the side of a flat bed without using bedrails? Moving to and from a A little bed to a chair ( including a wheelchair)? Standing up from a A little chair using your arms? (e.g., wheelchair, bedside chair) Walking in hospital A little room? Climbing 3-5 steps Total with a railing? Mobility Score 18 Mobility Level [facility] Mobility 6 Walk 10 steps or more Mobility Calculator Rehab PT IP Eval Objective Appearance Patient Behavior Appropriate,Cooperative Difficulty following mild instructions Ambulation Patient Able to No Ambulate Balance Ability to Arise Able, uses arms to help Sitting Balance Steady, safe Standing Balance Unsteady Transfers Bed Transfer Ability Supervision/Stand by Sit to Stand Bed Contact Guard/Hand Hold Transfer Ability Rehab PT IP prob,goals,plan Problems Date of Evaluation: 03/01/25 PT IP Problems Transfers,Gait,Balance,Self care,Safety Rehab Potential Rehab Potential Good Plan PT Intervention Plan Transfers,Gait,Balance,Self care,Safety,Therapeutic Exercise Other Intervention 1-2 times Plan PT Plan Frequency Daily Duration LOS Discharge Goals Bed Transfer Ability Independent Sit to Stand Chair Independent Transfer Ability Ambulation Assistive Rolling Walker Device Ambulation Distance 20 (feet) Discharge Plan PT Discharge Plan Initial physical therapy evaluation performed. Patient presents below baseline at this time in functional mobility, transfers, and strength. PT recommending rehabilitation placement upon d/c from [facility]. Pt would benefit from skilled PT while at [facility] to prevent further functional decline and maximize safety with mobility. Eval Complexity Eval Charge Codes 14863 - Moderate Complexity PHYSICIAN CERTIFICATION: I certify the specified therapy services for Noah Rivero JR are required, authorized, and reviewed every 30 days.
--- NOTE | 2025-03-01 13:52 | HMH.OTEV ---
OT Evaluation Rehab OT IP Evaluation Start: 03/01/25 07:34 Freq: ONCE Status: Active Protocol: Document 03/01/25 13:47 [facility] (Rec: 03/01/25 13:51 [facility] [id number]) Rehab OT IP Assessment Subjective History Pt admitted on 03/01/25 due to PNA and SOB. Pt is oriented to self. Pt did have bipap on during entire evaluation; information provided by patient was limited . History and physical: Patient is a 69-year-old male with past medical history of lung cancer who presents to the hospital due to shortness of breath. Patient reportedly was recommended hospice services on last admission however patient was not sure at that time patient came back to the hospital due to recurring symptoms of shortness of breath, on further evaluation patient was noted to have postobstructive pneumonia, patient wants to discuss further with pulmonary regarding next plan of care, patient seemed interested in enrolling in hospice care services. Patient otherwise denied chest pain nausea vomiting diarrhea constipation. Subjective Pt reports prior to being in the hospital, he [facility]. Pt claims normally he is independent with all ADLS: dressing, bathing, and feeding. However, he is dependent upon staff for completion of all IADLs. Pt also uses a rolling walker or cane during functional transfers to increase safety . Objective Patient Orientation Person Right Upper Min Limitation <25% Extremity Gross ROM Left Upper Extremity Min Limitation <25% Gross ROM Shoulder ROM Muscle Weakness Limitations Elbow ROM Muscle Weakness Limitations Wrist Limitations of Muscle Weakness Range of Motion Bed Mobility bed mobility-scooting,bed mobility - supine/sit Assist Level Contact Guard/Hand Hold Transfer Training Sit/Stand Transfer Assist Level Contact Guard/Hand Hold Rehab OT IP prob,goals,plan Problems Date of Evaluation: 03/01/25 OT IP Problems Bed Mobility,Transfers,Balance,Self care,Safety Rehab Potential Rehab Potential Good Equipment Needs Assistive Devices Rolling / Wheeled Walker Plan OT intervention Plan Bed Mobility,Transfers,Balance,Self care,Safety, Therapeutic Exercise OT Plan Frequency Daily Duration LOS Discharge Goals Bed Mobility Ability Standby Assistance Sit to Stand Chair Supervision/Stand by Transfer Ability Chair Transfer Supervision/Stand by Ability Chair Transfer Sit to/from Ambulatory Technique Chair Transfer Rolling Walker Assistive Devices Lower Body Dressing Minimal Assistance Ability Performing Toilet Minimal Assistance Hygiene Ability Overall Commode/ Standby Assistance,Contact Guard Toilet Transfer Ability Commode/Toilet Sit to/from Ambulatory Transfer Technique Discharge Plan OT Discharge Plan Pt will continue to be seen for OT services while at [facility]. Upon returning to SNF he would benefit from short term rehab services. Continued skilled therapy is important in order for patient to improve strength, safety, endurance, ADL independence, and functional transfers to reach PLOF. Eval Complexity Eval Charge Codes 05727 - Moderate Complexity PHYSICIAN CERTIFICATION: I certify the specified therapy services for Noah Rivero JR are required, authorized, and reviewed every 30 days.
[2025-03-01 15:34] LABS: POC Glucose,Bedside 193 gm/dL (70-110)
[2025-03-01 16:34] LABS: POC Glucose,Bedside 210 gm/dL (70-110)
[2025-03-01] MEDS: BUDESONIDE 0.5MG/2ML NEB 0.5 MG IH (18:00)
[2025-03-01 18:29] LABS: Adenovirus,PCR Not Detected (NotDetected); Chlamydophila Pneumoniae, PCR Not Detected (NotDetected); Coronavirus 19, PCR Not Detected (NotDetected); Coronovirus HKU1,PCR Not Detected (NotDetected); Influenza A, PCR Not Detected (NotDetected); Influenza AH1, 2009 Not Detected (NotDetected); Influenza AH1, PCR Not Detected (NotDetected); Influenza AH3,PCR Not Detected (NotDetected); Influenza B, PCR Not Detected (NotDetected); Mycoplasma Pneumoniae, PCR Not Detected (NotDetected); Parainfluenza 1, PCR Not Detected (NotDetected); Parainfluenza 2, PCR Not Detected (NotDetected); Parainfluenza 3, PCR Not Detected (NotDetected); Parainfluenza 4, PCR Not Detected (NotDetected)
[2025-03-01 19:11] LABS: Lactate Venous 1.4 mmol/L (0.4-2.0); VBG HCO3 24.1 mmol/L (23-30); VBG PCO2 50.5 mmol/L (35-51); VBG PH 7.30 mmol/L (7.31-7.41); VBG PO2 51.4 mmol/L (28-40)
[2025-03-01] MEDS: NYSTATIN SUSP 500,000 UNITS/5ML UDC 500000 UNIT PO (20:17)
[2025-03-01 20:20] LABS: POC Glucose,Bedside 202 gm/dL (70-110)
--- NOTE | 2025-03-01 22:50 | EXP.EVENT.NO ---
Spoke to Patient family at bedside, Patient family ( sister- DPOA ) would like to initiate patient on comfort care measures, orders placed
[2025-03-02] VITALS (29 sets, daily range): BP systolic 147–187; BP diastolic 67–96; PULSE 67–102; RESP 13–21; TEMP 36.5–37; O2SAT 93–97; BMI 22.3
[2025-03-02] MEDS: IPRATROPIUM/ALBUTEROL 3 ML NEB IH ×6 (01:47→22:54)
[2025-03-02] MEDS: METHYLPREDNISOLONE SOD SUCC 125MG VIAL 60 MG IV ×4 (01:52→20:44)
[2025-03-02 05:20] LABS: Anion Gap 18.9 mEq/L (5-15); Blood Urea Nitrogen 38 mg/dl (9-20); Calcium 8.3 mg/dl (8.4-10.2); Carbon Dioxide 19 mmol/L (22.0-30.0); Chloride 97 mmol/L (98-107); Creatinine Clearance Estimated 39 mL/min (50-200); Creatinine,Serum 1.70 mg/dl (0.66-1.25); Estimated Glomerular Filt Rate 40 ml/min (>60); GFR (African American) 49 ML/MIN (>60); Glucose 354 mg/dl (74-100); Potassium 4.9 mmoL/L (3.5-5.1); Sodium 130 mmol/L (136-145)
[2025-03-02 05:52] LABS: Hematocrit 36.6 % (42.0-52.0); Hemoglobin 11.2 g/dL (14.1-18.0); Immature Granulocytes % 0.7 %; Mean Corpuscular HGB Conc 30.6 g/dL (31.8-35.4); Mean Corpuscular Hemoglobin 25.9 pg (27.0-31.2); Mean Corpuscular Volume 84.7 fl (80-94); Nucleated Red Blood Cells % 0 %; Platelet Count 197 K/mm3 (142-424); Red Blood Count 4.32 M/mm3 (4.60-6.20); Red Cell Distribution Width-SD 47.8 fL; White Blood Count 12.1 K/mm3 (4.8-10.8)
[2025-03-02] MEDS: ONDANSETRON 4MG/2ML VIAL 4 MG IV (05:58)
[2025-03-02 06:02] LABS: POC Glucose,Bedside 388 gm/dL (70-110)
[2025-03-02] MEDS: BUDESONIDE 0.5MG/2ML NEB 0.5 MG IH ×2 (06:13→18:26)
[2025-03-02 06:19] LABS: Total Cells Counted 100
[2025-03-02] MEDS: humaLOG 100 UNITS/ML 10ML VIAL (SSI) SUBCUT ×4 (06:24→20:44)
--- NOTE | 2025-03-02 07:28 | P.PN_ITS ---
Subjective *Date: 03/02/25 *Time: 18:47 Interval history: Wore BiPAP overnight. Feeling somewhat better this morning. More interactive on exam. Less distressed than yesterday but still has mild distress with his breathing. On 4 L oxygen. White count improving. No nausea or vomiting. Afebrile. Medical Exam Vital signs and Labs for Last 24 Hours: Vital Signs Temp Pulse Pulse Resp BP Pulse Ox O2 Del Method 03/02/25 07:00 88 17 162/90 H 93 L BiPAP 03/02/25 06:39 BiPAP 03/02/25 06:16 90 03/02/25 06:16 93 H 03/02/25 06:16 03/02/25 06:00 89 15 187/93 H 94 L BiPAP 03/02/25 05:00 91 H 13 167/88 H 95 03/02/25 05:00 Nasal Cannula 03/02/25 04:00 97 Nasal Cannula 03/02/25 04:00 96 H 03/02/25 04:00 97.9 F 89 15 168/87 H 95 Nasal Cannula 03/02/25 03:00 Nasal Cannula 03/02/25 03:00 88 17 164/86 H 94 L BiPAP 03/02/25 02:00 101 H 17 167/82 H 93 L BiPAP 03/02/25 01:48 84 03/02/25 01:48 87 03/02/25 01:48 95 BiPAP 03/02/25 01:48 03/02/25 01:00 91 H 19 168/89 H 96 03/02/25 01:00 BiPAP 03/02/25 00:00 93 L BiPAP 03/02/25 00:00 87 03/02/25 00:00 98.6 F 87 15 158/67 H 94 L BiPAP 03/01/25 23:00 Nasal Cannula 03/01/25 23:00 85 16 160/81 H 94 L BiPAP 03/01/25 22:00 79 16 152/83 H 95 Nasal Cannula 03/01/25 21:42 96 Nasal Cannula 03/01/25 21:40 80 03/01/25 21:40 83 03/01/25 21:00 Nasal Cannula 03/01/25 21:00 64 14 157/77 H 94 L Nasal Cannula 03/01/25 20:00 93 L Nasal Cannula 03/01/25 20:00 78 13 142/69 H 95 03/01/25 20:00 81 03/01/25 19:00 77 12 138/71 94 L BiPAP 03/01/25 19:00 BiPAP 03/01/25 18:15 72 13 92 L 03/01/25 18:01 59 L 03/01/25 18:01 97 BiPAP 03/01/25 18:01 62 03/01/25 18:00 03/01/25 18:00 63 15 153/75 H 92 L BiPAP 03/01/25 17:01 71 13 137/74 99 BiPAP 03/01/25 17:00 BiPAP 03/01/25 16:00 64 17 98 BiPAP 03/01/25 16:00 97.6 F 64 12 153/76 H 98 BiPAP 03/01/25 16:00 63 03/01/25 15:00 BiPAP 03/01/25 15:00 77 12 129/68 96 BiPAP 03/01/25 14:00 70 12 121/64 98 03/01/25 13:50 69 03/01/25 13:50 66 03/01/25 13:00 BiPAP 03/01/25 13:00 77 12 143/70 H 98 03/01/25 12:00 71 17 97 BiPAP 03/01/25 12:00 69 03/01/25 12:00 97.1 F L 61 14 113/62 96 BiPAP 03/01/25 11:00 BiPAP 03/01/25 11:00 65 103/57 L 95 03/01/25 10:42 03/01/25 10:01 73 128/69 96 BiPAP 03/01/25 09:02 73 91/69 L 97 BiPAP 03/01/25 09:00 BiPAP 03/01/25 08:33 97.8 F 74 13 108/69 L 94 L BiPAP 03/01/25 08:05 03/01/25 08:00 75 03/01/25 08:00 19 91 L BiPAP 03/01/25 07:55 BiPAP 03/01/25 07:46 91 L Vapotherm 03/01/25 07:36 73 24 03/01/25 07:36 73 03/01/25 07:36 73 03/01/25 07:33 96 Vapotherm O2 Flow Rate FiO2 03/02/25 07:00 03/02/25 06:39 03/02/25 06:16 03/02/25 06:16 03/02/25 06:16 35 03/02/25 06:00 35 03/02/25 05:00 03/02/25 05:00 4 03/02/25 04:00 4 03/02/25 04:00 03/02/25 04:00 4 03/02/25 03:00 4 03/02/25 03:00 35 03/02/25 02:00 35 03/02/25 01:48 03/02/25 01:48 03/02/25 01:48 35 03/02/25 01:48 35 03/02/25 01:00 03/02/25 01:00 03/02/25 00:00 03/02/25 00:00 03/02/25 00:00 35 03/01/25 23:00 4 03/01/25 23:00 35 03/01/25 22:00 4 03/01/25 21:42 4 36 03/01/25 21:40 03/01/25 21:40 03/01/25 21:00 4 03/01/25 21:00 4 03/01/25 20:00 4 03/01/25 20:00 03/01/25 20:00 03/01/25 19:00 35 03/01/25 19:00 03/01/25 18:15 03/01/25 18:01 03/01/25 18:01 35 03/01/25 18:01 03/01/25 18:00 35 03/01/25 18:00 03/01/25 17:01 03/01/25 17:00 03/01/25 16:00 50 03/01/25 16:00 03/01/25 16:00 03/01/25 15:00 03/01/25 15:00 03/01/25 14:00 03/01/25 13:50 03/01/25 13:50 03/01/25 13:00 03/01/25 13:00 03/01/25 12:00 50 03/01/25 12:00 03/01/25 12:00 03/01/25 11:00 03/01/25 11:00 03/01/25 10:42 50 03/01/25 10:01 03/01/25 09:02 03/01/25 09:00 03/01/25 08:33 03/01/25 08:05 50 03/01/25 08:00 03/01/25 08:00 50 03/01/25 07:55 50 03/01/25 07:46 30 50 03/01/25 07:36 03/01/25 07:36 03/01/25 07:36 03/01/25 07:33 30 70 Intake and Output 03/01/25 03/01/25 03/02/25 15:59 23:59 07:59 Intake Total 550 / 700 300 / 300 Output Total 300 / 300 600 / 600 Balance 250 / 400 -300 / -300 Intake: Intake, Total IV Amount 550 / 700 300 / 300 Linezolid 600 mg In 300 ml @ 300 / 300 300 mls/hr IV Q12H [facility] Rx#: [id number] Linezolid 600 mg In 300 ml @ 300 / 300 300 mls/hr IV Q12H [facility] Rx#: [id number] Vancomycin/Water For Inj (Peg) 250 / 250 1.25 gm In 250 ml @ 125 mls/hr IV ONCE ONE Rx#:[id number] Output: Output, Urine Amount 300 / 300 600 / 600 Other: Number of Voids 1 Number of Unmeasured Voids 0 Number of Bowel Movements 1 Weight 66.497 kg 66.769 kg Patient Weight 03/02/25 23:59 Weight 66.769 kg Laboratory Results - last 24 hr 03/01/25 07:21: Specimen Source Right radial, ABG pH 7.14 L*, ABG pCO2 69.9 H, ABG pO2 105.4 H, ABG HCO3 23.5, ABG Total CO2 25.6, ABG O2 Saturation 97, ABG Base Excess -5.5 L, Keith Test Acceptable, PEEP 40l/100% 03/01/25 08:20: WBC 12.4 H, RBC 4.21 L, Hgb 11.1 L, Hct 36.2 L, MCV 86.0, MCH 26.4 L, MCHC 30.7 L, RDW 15.8, Plt Count 180, MPV 10.0, Neut % (Auto) 93.6 H, Lymph % (Auto) 3.9 L, [place] % (Auto) 1.0 L, Eos % (Auto) 0.1, Baso % (Auto) 0.2, Neut # (Auto) 11.7 H, Lymph # (Auto) 0.5 L, [place] # (Auto) 0.1, Eos # (Auto) 0.0, Baso # (Auto) 0.0, Total Counted 100, Neutrophils % (Manual) 96 H, Lymphocytes % (Manual) 2 L, Monocytes % (Manual) 1 L, Basophils % (Manual) 1.0, Platelet Estimate Normal, RBC Morphology Normal, Sodium 132 L, Potassium 5.7 H, Chloride 97 L, Carbon Dioxide 23, Anion Gap 17.7 H, BUN 33 H, Creatinine 1.80 H, Estimated Creat Clear 36, Estimated GFR 38 L, Est GFR ( Amer) 45 L, Glucose 187 H, Calcium 8.3 L, Troponin I 0.09 H 03/01/25 08:36: POC Glucose 193 H 03/01/25 11:30: VBG pH 7.23 L, VBG pCO2 58.6 H, VBG pO2 60.7 H, VBG HCO3 23.8, VBG Total CO2 25.6, VBG O2 Saturation 89.8 H, VBG Base Excess -3.8 L, VBG Lactic Acid 1.3 03/01/25 12:05: POC Glucose 201 H 03/01/25 16:14: POC Glucose 210 H 03/01/25 16:16: Chlamy pneumoniae PCR Not detected, Adenovirus (PCR) Not detected, B. pertussis DNA (PCR) Not detected, Coronavirus OC43 (PCR) Not detected, Coronavirus HKU1 (PCR) Not detected, Coronavirus 229E (PCR) Not detected, SARS-CoV-2 (PCR) Not detected, Coronavirus NL63 (PCR) Not detected, Human Metapneumovir PCR Not detected, Influenza A (H1) PCR Not detected, Influ A (H1N1/09) PCR Not detected, Influenza A (H3) PCR Not detected, Influenza Type A (PCR) Not detected, Influenza Type B (PCR) Not detected, M. pneumoniae (PCR) Not detected, Parainfluenza 1 (PCR) Not detected, Parainfluenza 2 (PCR) Not detected, Parainfluenza 3 (PCR) Not detected, Parainfluenza 4 (PCR) Not detected, RSV (PCR) Not detected, Entero/Rhino (PCR) Not detected 03/01/25 19:07: VBG pH 7.30 L, VBG pCO2 50.5, VBG pO2 51.4 H, VBG HCO3 24.1, VBG Total CO2 25.7, VBG O2 Saturation 86.1 H, VBG Base Excess -2.3, VBG Lactic Acid 1.4 03/01/25 20:10: POC Glucose 202 H 03/02/25 04:50: WBC 12.1 H, RBC 4.32 L, Hgb 11.2 L, Hct 36.6 L, MCV 84.7, MCH 25.9 L, MCHC 30.6 L, RDW 15.5, Plt Count 197, MPV 10.5 H, Neut % (Auto) 93.6 H, Lymph % (Auto) 4.1 L, [place] % (Auto) 1.5 L, Eos % (Auto) 0.0 L, Baso % (Auto) 0.1, Neut # (Auto) 11.3 H, Lymph # (Auto) 0.5 L, [place] # (Auto) 0.2, Eos # (Auto) 0.0, Baso # (Auto) 0.0, Total Counted 100, Neutrophils % (Manual) 96 H, Lymphocytes % (Manual) 4 L, Sodium 130 L, Potassium 4.9, Chloride 97 L, Carbon Dioxide 19 L, Anion Gap 18.9 H, BUN 38 H, Creatinine 1.70 H, Estimated Creat Clear 39, Estimated GFR 40 L, Est GFR ( Amer) 49 L, Glucose 354 H D, Calcium 8.3 L 03/02/25 05:49: POC Glucose 388 H* I & O for Labs for Last 24 Hours: Intake & Output 02/27/25 02/28/25 03/01/25 03/02/25 23:59 23:59 23:59 23:59 Intake Total 700 / 700 300 / 300 Output Total 300 / 300 600 / 600 Balance 400 / 400 -300 / -300 Weight 66.497 kg 66.769 kg Microbiology Reports for the Last 24 Hours: Microbiology 03/01/25 04:36 Blood Blood Culture - Preliminary NO GROWTH AFTER 24 HOURS 03/01/25 04:36 Blood Blood Culture - Preliminary NO GROWTH AFTER 24 HOURS Constitutional: Present mild distress, thin, chronically ill appearing and cooperative Head: Present atraumatic ENT: Present normal exam Neck: Present normal inspection Respiratory: Present accessory muscle use, prolonged expiratory phase and wheezes; Absent rhonchi or crackles Cardiac: Present Reg Rate and Rhythm GI: Present soft and normal bowel sounds; Absent distention or tenderness Comments:: Well-healed midline scar Extremities: Present normal inspection and full ROM Skin: Present intact; Absent erythema Neuro: Present Grossly Intact, alert, awake, oriented x 3 and moves all extremities Assessment and Plan *Assessment and plan (1) Respiratory failure with hypoxia and hypercapnia: Status: Acute Category: Medical Code(s): J96.91 - Respiratory failure, unspecified with hypoxia; J96.92 - Respiratory failure, unspecified with hypercapnia (2) Pneumonia: Status: Acute Qualifiers: Laterality: left Category: Medical Code(s): J18.9 - Pneumonia, unspecified organism (3) Lung cancer: Status: Acute Category: Medical Code(s): C34.90 - Malignant neoplasm of unspecified part of unspecified bronchus or lung (4) Severe protein-calorie malnutrition: Status: Acute Category: Medical Code(s): E43 - Unspecified severe protein-calorie malnutrition (5) Acute on chronic respiratory failure with hypoxia and hypercapnia: Status: Acute Category: Medical Code(s): J96.21 - Acute and chronic respiratory failure with hypoxia; J96.22 - Acute and chronic respiratory failure with hypercapnia (6) Lytic lesion of bone on x-ray: Status: Acute Category: Medical Code(s): M89.8X9 - Other specified disorders of bone, unspecified site (7) Postobstructive pneumonia: Status: Acute Category: Medical Code(s): J18.9 - Pneumonia, unspecified organism (8) CKD stage 3b, GFR 30-44 ml/min: Status: Acute Category: Medical Code(s): N18.32 - Chronic kidney disease, stage 3b (9) Type 2 diabetes mellitus: Status: Chronic Qualifiers: Diabetes mellitus skilled nursing insulin use: without intermodal customer service use Diabetes mellitus complication status: with neurologic complications Diabetes mellitus complication detail: with polyneuropathy Qualified Code(s): E11.42 - Type 2 diabetes mellitus with diabetic polyneuropathy Category: Medical Code(s): E11.9 - Type 2 diabetes mellitus without complications (10) Tobacco abuse: Status: Chronic Category: Medical Code(s): Z72.0 - Tobacco use Plan Noah Rivero is a 69-year-old male with a medical history significant for chronic tobacco use, COPD on room air who presented with chest pain, shortness of breath who presented with shortness of breath, productive cough. Had bronchoscopy performed last Thursday. Has worsening obstructive pneumonia. Had worsening episode of acute respiratory failure necessitating BiPAP due to hypercapnia yesterday. Doing better this morning. Weaned off BiPAP. Will observe on nasal cannula oxygen. Currently on 4 L. Continues to require inpatient management. Pulmonology assisting with care. Treating pneumonia with positive corynebacterium sample obtained during bronchoscopy prior to admission. At this time, patient has corynebacterium pneumonia with acute hypercapnic and hypoxic on chronic hypoxic respiratory failure. Suspected lung cancer metastatic to spine with pathologic fractures. Pulmonology assisting with care. Problems addressed as follows: #Left upper lobe mass #Suspected malignancy # Postobstructive pneumonia secondary to corynebacterium # Low back pain secondary to pathologic T12 fracture and L3 spiculated lesion concerning for metastatic disease, suspected lung cancer ? Presented with shortness of breath, review of chest imaging shows stable left upper lung/mediastinal mass along with airspace disease in left upper lung conc erning for postobstructive pneumonia. - Culture from bronchoscopy within the past week positive for corynebacterium. Discussed case with pulmonology, Recommend continuing antibiotics with Zyvox 600 mg twice daily to treat for known infection. Continue steroids with methylprednisolone 60 mg IV q12h - White count improving to 12, hemoglobin - Repeat CBC, CMP, magnesium ordered for the morning. - Continue hydrocodone, increased every 4 hours as needed 5 mg for breakthrough pain. Gabapentin 300 mg twice daily. Monitor for toxicity #Hypertension: Continue Coreg 25 mg twice daily, aspirin 81 mg, atorvastatin 40 mg. Irbesartan 150 mg nightly #History of prostate cancer s/p prostatectomy #Overactive bladder ? Continue home oxybutynin 5 mg twice daily. ? Continue regular follow-ups Dr. Phillips. #COPD #Chronic tobacco use ? Continue home Trelegy 100. Continue DuoNebs every 6 hours. Will discontinue steroids as patient is much more stable. ? Advised tobacco cessation. Nicotine patch daily. #Chronic pancreatitis ? Continue home Creon. Stable. #Type 2 diabetes #Peripheral neuropathy ? Hemoglobin A1c 6.8% on 02/13. Continue home Lantus 20 units hs, Farxiga 10 mg. ? Continue home gabapentin 300 mg twice daily. - Sliding scale insulin with fingersticks ACHS #GERD: Continue home PPI. #Anxiety/depression: Continue home duloxetine 60 mg #CKD stage IIIb: Potassium 4.9, BUN 38, creatinine 1.7. Appears at baseline. DNR/DNI DVT prophylaxis: Heparin 5000 units TID regular diet
[2025-03-02] MEDS: NYSTATIN SUSP 500,000 UNITS/5ML UDC 500000 UNIT PO ×3 (08:07→20:44)
[2025-03-02] MEDS: GABAPENTIN 300MG CAPSULE 300 MG PO ×2 (08:07→20:44)
[2025-03-02] MEDS: ASPIRIN 81MG CHEWABLE TABLET 81 MG PO (08:07)
[2025-03-02 08:49] LABS: Lactate Venous 1.9 mmol/L (0.4-2.0); VBG HCO3 26.0 mmol/L (23-30); VBG PCO2 50.5 mmol/L (35-51); VBG PH 7.33 mmol/L (7.31-7.41); VBG PO2 49.4 mmol/L (28-40)
--- NOTE | 2025-03-02 09:22 | EXP.PULM.PN ---
Subjective *Date: 03/02/25 *Time: 14:15 Interval history: No acute respiratory events overnight. Pulmonology Exam Inpatient Vital signs and Labs for Last 24 Hours: Temp Pulse Resp BP Pulse Ox O2 Del Method O2 Flow Rate 97.7 F 100 H 16 170/90 H 97 Nasal Cannula 4 03/02/25 08:00 03/02/25 08:00 03/02/25 08:00 03/02/25 08:00 03/02/25 08:00 03/02/25 09:00 03/02/25 09:00 FiO2 35 03/02/25 06:16 Laboratory Results - last 24 hr 03/01/25 08:20: Total Counted 100, Neutrophils % (Manual) 96 H, Lymphocytes % (Manual) 2 L, Monocytes % (Manual) 1 L, Basophils % (Manual) 1.0, Platelet Estimate Normal, RBC Morphology Normal, Sodium 132 L, Potassium 5.7 H, Chloride 97 L, Carbon Dioxide 23, Anion Gap 17.7 H, BUN 33 H, Creatinine 1.80 H, Estimated Creat Clear 36, Estimated GFR 38 L, Est GFR ( Amer) 45 L, Glucose 187 H, Calcium 8.3 L 03/01/25 08:36: POC Glucose 193 H 03/01/25 11:30: VBG pH 7.23 L, VBG pCO2 58.6 H, VBG pO2 60.7 H, VBG HCO3 23.8, VBG Total CO2 25.6, VBG O2 Saturation 89.8 H, VBG Base Excess -3.8 L, VBG Lactic Acid 1.3 03/01/25 12:05: POC Glucose 201 H 03/01/25 16:14: POC Glucose 210 H 03/01/25 16:16: Chlamy pneumoniae PCR Not detected, Adenovirus (PCR) Not detected, B. pertussis DNA (PCR) Not detected, Coronavirus OC43 (PCR) Not detected, Coronavirus HKU1 (PCR) Not detected, Coronavirus 229E (PCR) Not detected, SARS-CoV-2 (PCR) Not detected, Coronavirus NL63 (PCR) Not detected, Human Metapneumovir PCR Not detected, Influenza A (H1) PCR Not detected, Influ A (H1N1/09) PCR Not detected, Influenza A (H3) PCR Not detected, Influenza Type A (PCR) Not detected, Influenza Type B (PCR) Not detected, M. pneumoniae (PCR) Not detected, Parainfluenza 1 (PCR) Not detected, Parainfluenza 2 (PCR) Not detected, Parainfluenza 3 (PCR) Not detected, Parainfluenza 4 (PCR) Not detected, RSV (PCR) Not detected, Entero/Rhino (PCR) Not detected 03/01/25 19:07: VBG pH 7.30 L, VBG pCO2 50.5, VBG pO2 51.4 H, VBG HCO3 24.1, VBG Total CO2 25.7, VBG O2 Saturation 86.1 H, VBG Base Excess -2.3, VBG Lactic Acid 1.4 03/01/25 20:10: POC Glucose 202 H 03/02/25 04:50: WBC 12.1 H, RBC 4.32 L, Hgb 11.2 L, Hct 36.6 L, MCV 84.7, MCH 25.9 L, MCHC 30.6 L, RDW 15.5, Plt Count 197, MPV 10.5 H, Neut % (Auto) 93.6 H, Lymph % (Auto) 4.1 L, [place] % (Auto) 1.5 L, Eos % (Auto) 0.0 L, Baso % (Auto) 0.1, Neut # (Auto) 11.3 H, Lymph # (Auto) 0.5 L, [place] # (Auto) 0.2, Eos # (Auto) 0.0, Baso # (Auto) 0.0, Total Counted 100, Neutrophils % (Manual) 96 H, Lymphocytes % (Manual) 4 L, Sodium 130 L, Potassium 4.9, Chloride 97 L, Carbon Dioxide 19 L, Anion Gap 18.9 H, BUN 38 H, Creatinine 1.70 H, Estimated Creat Clear 39, Estimated GFR 40 L, Est GFR ( Amer) 49 L, Glucose 354 H D, Calcium 8.3 L 03/02/25 05:49: POC Glucose 388 H* 03/02/25 08:38: VBG pH 7.33, VBG pCO2 50.5, VBG pO2 49.4 H, VBG HCO3 26.0, VBG Total CO2 27.6 H, VBG O2 Saturation 83.7 H, VBG Base Excess 0.1, VBG Lactic Acid 1.9 Temp Pulse Resp BP Pulse Ox O2 Del Method O2 Flow Rate 97.8 F 74 13 108/69 L 94 L BiPAP 30 03/01/25 08:33 03/01/25 08:33 03/01/25 08:33 03/01/25 08:33 03/01/25 08:33 03/01/25 08:33 03/01/25 07:46 FiO2 50 03/01/25 08:05 Laboratory Results - last 24 hr 03/01/25 04:28: VBG pH 7.24 L, VBG pCO2 56.8 H, VBG pO2 65.5 H, VBG HCO3 23.6, VBG Total CO2 25.4, VBG O2 Saturation 90.9 H, VBG Base Excess -3.8 L, VBG Lactic Acid 1.3 03/01/25 04:30: WBC 14.1 H, RBC 4.33 L, Hgb 11.3 L, Hct 36.8 L, MCV 85.0, MCH 26.1 L, MCHC 30.7 L, RDW 15.8, Plt Count 185, MPV 10.3, Neut % (Auto) 78.8, Lymph % (Auto) 9.6 L, [place] % (Auto) 8.9, Eos % (Auto) 1.4, Baso % (Auto) 0.2, Neut # (Auto) 11.1 H, Lymph # (Auto) 1.4, [place] # (Auto) 1.3 H, Eos # (Auto) 0.2, Baso # (Auto) 0.0, PT 13.6 H, INR 1.25 H, Sodium 132 L, Potassium 5.0, Chloride 98, Carbon Dioxide 25, Anion Gap 14.0, BUN 30 H, Creatinine 1.60 H, Estimated GFR 43 L, Est GFR ( Amer) 52 L, Glucose 157 H, Calcium 8.5, Total Bilirubin 0.6, AST 20, ALT 12, Alkaline Phosphatase 106, Troponin I 0.09 H, NT-Pro-B Natriuret Pep 6660 H, Total Protein 5.6 L, Albumin 3.1 L, Globulin 2.5, Albumin/Globulin Ratio 1.2 03/01/25 07:21: Specimen Source Right radial, ABG pH 7.14 L*, ABG pCO2 69.9 H, ABG pO2 105.4 H, ABG HCO3 23.5, ABG Total CO2 25.6, ABG O2 Saturation 97, ABG Base Excess -5.5 L, Keith Test Acceptable, PEEP 40l/100% 03/01/25 08:20: WBC 12.4 H, RBC 4.21 L, Hgb 11.1 L, Hct 36.2 L, MCV 86.0, MCH 26.4 L, MCHC 30.7 L, RDW 15.8, Plt Count 180, MPV 10.0, Neut % (Auto) 93.6 H, Lymph % (Auto) 3.9 L, [place] % (Auto) 1.0 L, Eos % (Auto) 0.1, Baso % (Auto) 0.2, Neut # (Auto) 11.7 H, Lymph # (Auto) 0.5 L, [place] # (Auto) 0.1, Eos # (Auto) 0.0, Baso # (Auto) 0.0, Troponin I 0.09 H I & O for Labs for Last 24 Hours: Intake & Output 02/27/25 02/28/25 03/01/25 03/02/25 23:59 23:59 23:59 23:59 Intake Total 700 / 700 460 / 460 Output Total 300 / 300 600 / 600 Balance 400 / 400 -140 / -140 Weight 146 lb 9.6 oz 147 lb 3.2 oz Intake & Output 02/26/25 02/27/25 02/28/25 03/01/25 23:59 23:59 23:59 23:59 Intake Total 150 / 150 Balance 150 / 150 Weight 146 lb 9.6 oz Microbiology Reports for the Last 24 Hours: Microbiology 03/01/25 04:36 Blood Blood Culture - Preliminary NO GROWTH AFTER 24 HOURS 03/01/25 04:36 Blood Blood Culture - Preliminary NO GROWTH AFTER 24 HOURS Microbiology 02/12/25 12:10 Sputum - Expectorated Sputum Gram Stain - Final 02/12/25 12:10 Sputum - Expectorated Sputum Sputum Culture - Preliminary Constitutional: Present moderate distress Head: Present normocephalic and atraumatic ENT: Present normal exam, normal oropharynx and mucous membranes moist Neck: Present normal inspection and full ROM Respiratory: Present prolonged expiratory phase, respiratory distress and able to speak in complete sentences; Absent wheezes Cardiac: Present S1/S2, Tachycardia and radial pulses present GI: Present soft and distention; Absent tenderness or guarding Skin: Present intact; Absent cyanosis or jaundice Neuro: Present awake; Absent alert or oriented x 3 Extremities: Present normal inspection; Absent clubbing or cyanosis Psychiatric: Present unable to assess Assessment and Plan *Assessment and plan (1) Pneumonia: Status: Acute Qualifiers: Laterality: left Category: Medical Code(s): J18.9 - Pneumonia, unspecified organism (2) Acute on chronic respiratory failure with hypoxia and hypercapnia: Status: Acute Category: Medical Code(s): J96.21 - Acute and chronic respiratory failure with hypoxia; J96.22 - Acute and chronic respiratory failure with hypercapnia Plan Mr. Rivero is a 69-year-old male following in pulmonary clinic for exertional dyspnea chronic hypoxic respiratory failure emphysema and lung mass s/p biopsy awaiting pathology presented to ER with worsening respiratory distress and pulmonary was called for further evaluation and management. Worsening cough productive phlegm and low-grade fevers and worsening mentation as an outpatient basis, initiated on Augmentin for presumed Corynebacterium striatum pneumonia. Chest x-ray upon admission prominent left-sided airspace disease significantly worsened from his most recent admission. Blood gas from this morning also showed worsening hypercarbic respiratory failure. Interval update: Improving hypercarbic respiratory failure. Overnight used BiPAP. Currently on 4 L nasal cannula. Continue to receive linezolid. Stable leukocytosis. Afebrile. Hemodynamically stable. Stable renal function. Comprehensive respiratory viral PCR panel negative. Patient appeared more awake alert and oriented this morning. I have again had extensive discussion with the patient regarding his primary goals at this point of time. Patient clearly stated that he would like his pain to be well-controlled. At the same time he also stated that his wishes to pursue treatment options for his malignancy. Patient definitely stated that he did not want chemo or radiotherapy. Patient stated that he would like to pursue immunotherapy if he thinks that is a reasonable option after discussing with oncology. I have clearly asked the patient what he wants to do respect to of his daughter's wishes. Patient clearly stated the above goals are he one of the 2 at this point of time which includes pain control and pursue the feasibility of receiving immunotherapy. He is clearly aware that the treatment is not a curative intent but palliative given his likely stage IV malignancy. He is also aware of the possibility of he might not qualify for immunotherapy/if he qualifies but can still decide against it after listening to the options from oncology. Plan: Continue nasal cannula oxygen supplementation to maintain O2 saturation goal of 90% and above DuoNebs every 4 hours along with Pulmicort Q12 scheduled Continue linezolid for the noted worsening pneumonia. Sensitivities requested on BAL cultures. Will follow. # Thank you for involving pulmonary in this patient care. Will continue to follow.
[2025-03-02] MEDS: INSULIN GLARGINE 100 UNITS/ML 3ML FLEXPEN 20 UNIT SUBCUT (09:38)
[2025-03-02] MEDS: CARVEDILOL 25MG TABLET 25 MG PO ×2 (09:39→20:44)
[2025-03-02] MEDS: IRBESARTAN 75MG TABLET 75 MG PO (11:28)
[2025-03-02] MEDS: LIPASE/PROTEASE/AMYLASE 1 EACH CAPSULE.DR PO ×2 (11:28→16:10)
[2025-03-02] MEDS: LINEZOLID 600 MG/300 ML IV.SOLN 300 MG IV ×2 (11:28→23:56)
[2025-03-02 11:32] LABS: POC Glucose,Bedside 284 gm/dL (70-110)
[2025-03-02 16:14] LABS: POC Glucose,Bedside 177 gm/dL (70-110)
[2025-03-02 20:16] LABS: POC Glucose,Bedside 318 gm/dL (70-110)
[2025-03-02] MEDS: HEPARIN SODIUM 5,000 UNIT/ML VIAL 5000 UNIT SUBCUT (20:43)
[2025-03-02] MEDS: IRBESARTAN 150MG TAB 150 MG PO (20:44)
[2025-03-02] MEDS: dilTIAZem ER 120MG CAPSULE 120 MG PO (20:44)
[2025-03-02] MEDS: PANTOPRAZOLE 40MG VIAL 40 MG IV (20:44)
[2025-03-03] VITALS (18 sets, daily range): BP systolic 126–164; BP diastolic 62–81; PULSE 57–80; RESP 10–18; TEMP 36.4–36.6; O2SAT 92–98; BMI 22.3
[2025-03-03] MEDS: IPRATROPIUM/ALBUTEROL 3 ML NEB IH ×4 (03:00→13:24)
[2025-03-03 05:41] LABS: Lactate Venous 1.5 mmol/L (0.4-2.0); VBG HCO3 27.4 mmol/L (23-30); VBG PCO2 47.8 mmol/L (35-51); VBG PH 7.38 mmol/L (7.31-7.41); VBG PO2 55.8 mmol/L (28-40)
[2025-03-03 05:49] LABS: Hematocrit 35.3 % (42.0-52.0); Hemoglobin 10.9 g/dL (14.1-18.0); Immature Granulocytes % 0.8 %; Mean Corpuscular HGB Conc 30.9 g/dL (31.8-35.4); Mean Corpuscular Hemoglobin 25.5 pg (27.0-31.2); Mean Corpuscular Volume 82.7 fl (80-94); Nucleated Red Blood Cells % 0 %; Platelet Count 198 K/mm3 (142-424); Red Blood Count 4.27 M/mm3 (4.60-6.20); Red Cell Distribution Width-SD 46.6 fL; White Blood Count 19.3 K/mm3 (4.8-10.8)
[2025-03-03 05:59] LABS: Albumin Level 3.0 g/dl (3.5-5.0); Chloride 98 mmol/L (98-107); Sodium 134 mmol/L (136-145)
[2025-03-03 06:00] LABS: Potassium 4.3 mmoL/L (3.5-5.1)
[2025-03-03 06:02] LABS: Alanine Aminotransferase 13 U/L (12-78); Alkaline Phosphatase 103 U/L (38-126); Anion Gap 9.3 mEq/L (5-15); Aspartate Amino Transferase 24 U/L (17-59); Bilirubin,Total 0.3 mg/dl (0.2-1.3); Carbon Dioxide 31 mmol/L (22.0-30.0)
[2025-03-03 06:03] LABS: Albumin/Globulin Ratio 1.2 (1.1-1.8); Calcium 8.9 mg/dl (8.4-10.2); Globulin 2.6 g/dL (1.3-3.2); Glucose 252 mg/dl (74-100); Magnesium 2.1 mg/dl (1.6-2.3); Total Protein,Serum 5.6 g/dl (6.3-8.2)
[2025-03-03] MEDS: BUDESONIDE 0.5MG/2ML NEB 0.5 MG IH (06:06)
[2025-03-03 06:07] LABS: Blood Urea Nitrogen 41 mg/dl (9-20)
[2025-03-03] MEDS: METHYLPREDNISOLONE SOD SUCC 125MG VIAL 60 MG IV (06:26)
[2025-03-03] MEDS: LIPASE/PROTEASE/AMYLASE 1 EACH CAPSULE.DR PO ×2 (06:26→11:32)
[2025-03-03 06:27] LABS: POC Glucose,Bedside 262 gm/dL (70-110)
[2025-03-03] MEDS: humaLOG 100 UNITS/ML 10ML VIAL (SSI) SUBCUT ×2 (06:27→11:32)
[2025-03-03 06:59] LABS: Creatinine Clearance Estimated 39 mL/min (50-200); Creatinine,Serum 1.70 mg/dl (0.66-1.25); Estimated Glomerular Filt Rate 40 ml/min (>60); GFR (African American) 49 ML/MIN (>60)
--- NOTE | 2025-03-03 08:00 | EXP.DC.SUM ---
General Admission date:: 03/01/25 Discharge date: 03/03/25 HPI HPI HPI: Patient is a 69-year-old male with past medical history of lung cancer who presents to the hospital due to shortness of breath. Patient reportedly was recommended hospice services on last admission however patient was not sure at that time patient came back to the hospital due to recurring symptoms of shortness of breath, on further evaluation patient was noted to have postobstructive pneumonia, patient wants to discuss further with pulmonary regarding next plan of care, patient seemed interested in enrolling in hospice care services. Patient otherwise denied chest pain nausea vomiting diarrhea constipation. Hospital Course Hospital Course Hospital Course: Noah Rivero is a 69-year-old male with a medical history significant for chronic tobacco use, COPD on room air who presented with chest pain, shortness of breath who presented with shortness of breath, productive cough. Had bronchoscopy performed last Thursday. Has worsening obstructive pneumonia. Had worsening episode of acute respiratory failure necessitating BiPAP due to hypercapnia yesterday. Doing better this morning. Weaned off BiPAP. Will observe on nasal cannula oxygen. Currently on 4 L. Continues to require inpatient management. Pulmonology assisting with care. Treating pneumonia with positive corynebacterium sample obtained during bronchoscopy prior to admission. At this time, patient has corynebacterium pneumonia with acute hypercapnic and hypoxic on chronic hypoxic respiratory failure. Suspected lung cancer metastatic to spine with pathologic fractures. Pulmonology assisting with care. Will did well and is weaned off of BiPAP. On 2 L nasal cannula. Stable for the past 36 hours. Will transition to oral antibiotics. Follow-up with pulmonology and oncology for further discussion about suspected lung cancer and if treatments are available versus considering hospice. Problems addressed as follows: #Left upper lobe mass #Suspected malignancy # Postobstructive pneumonia secondary to corynebacterium # Low back pain secondary to pathologic T12 fracture and L3 spiculated lesion concerning for metastatic disease, suspected lung cancer ? Presented with shortness of breath, review of chest imaging shows stable left upper lung/mediastinal mass along with airspace disease in left upper lung concerning for postobstructive pneumonia. Culture from bronchoscopy within the past week positive for corynebacterium. Discussed case with pulmonology, Recommend continuing antibiotics with Zyvox 600 mg twice daily to treat for known infection. Initially on steroids. Discontinued prior to discharge. Continue Zyvox 6 mg twice daily for 7 days total. Will increase hydrocodone to every 4 hours as needed along with initiation of lidocaine patch for chronic pain. Continue gabapentin 300 mg twice daily, - Oxygen requirement improving, weaned to 2 L nasal cannula continuous. Blood gas on morning of discharge without BiPAP stable pH 7.38, pCO2 47.8. #Hypertension: Continue Coreg 25 mg twice daily, aspirin 81 mg, atorvastatin 40 mg. Irbesartan 150 mg nightly #History of prostate cancer s/p prostatectomy #Overactive bladder ? Continue home oxybutynin 5 mg twice daily. #COPD #Chronic tobacco use ? Continue home Trelegy 100. Continue DuoNebs every 6 hours. Advised tobacco cessation. Nicotine patch daily. #Chronic pancreatitis: Continue home Creon. Stable. #Type 2 diabetes #Peripheral neuropathy ? Hemoglobin A1c 6.8% on 02/13. Continue home Lantus 20 units hs, Farxiga 10 mg. Continue home gabapentin 300 mg twice daily. #GERD: Continue home PPI. #Anxiety/depression: Continue home duloxetine 60 mg #CKD stage IIIb: Stable during admission. BUN 41, creatinine 1.7. Potassium 4.3 magnesium 2.1. Needs repeat CBC, CMP, magnesium in 1 week Total time spent on discharge 35 minutes in counseling, documentation, chart review, and direct care with patient. Exam Data for Last 24 hours Vital signs and Labs for Last 24 Hours: Temp Pulse Resp BP Pulse Ox O2 Del Method O2 Flow Rate 98.3 F 68 10 L 126/66 92 L Nasal Cannula 2 03/02/25 16:07 03/03/25 06:06 03/03/25 06:00 03/03/25 06:00 03/03/25 07:36 03/03/25 07:36 03/03/25 07:36 FiO2 35 03/02/25 06:16 Laboratory Results - last 24 hr 03/02/25 08:38: VBG pH 7.33, VBG pCO2 50.5, VBG pO2 49.4 H, VBG HCO3 26.0, VBG Total CO2 27.6 H, VBG O2 Saturation 83.7 H, VBG Base Excess 0.1, VBG Lactic Acid 1.9 03/02/25 11:24: POC Glucose 284 H 03/02/25 16:07: POC Glucose 177 H 03/02/25 20:09: POC Glucose 318 H* 03/03/25 05:29: WBC 19.3 H D, RBC 4.27 L, Hgb 10.9 L, Hct 35.3 L, MCV 82.7, MCH 25.5 L, MCHC 30.9 L, RDW 15.7, Plt Count 198, MPV 9.8, Neut % (Auto) 94.5 H, Lymph % (Auto) 3.2 L, [place] % (Auto) 1.4 L, Eos % (Auto) 0.0 L, Baso % (Auto) 0.1, Neut # (Auto) 18.2 H, Lymph # (Auto) 0.6 L, [place] # (Auto) 0.3, Eos # (Auto) 0.0, Baso # (Auto) 0.0, VBG pH 7.38, VBG pCO2 47.8, VBG pO2 55.8 H, VBG HCO3 27.4, VBG Total CO2 28.9 H, VBG O2 Saturation 89.3 H, VBG Base Excess 2.2, VBG Lactic Acid 1.5, Sodium 134 L, Potassium 4.3, Chloride 98, Carbon Dioxide 31 H, Anion Gap 9.3, BUN 41 H, Creatinine 1.70 H, Estimated Creat Clear 39, Estimated GFR 40 L, Est GFR ( Amer) 49 L, Glucose 252 H, Calcium 8.9, Magnesium 2.1, Total Bilirubin 0.3, AST 24, ALT 13, Alkaline Phosphatase 103, Total Protein 5.6 L, Albumin 3.0 L, Globulin 2.6, Albumin/Globulin Ratio 1.2 03/03/25 06:19: POC Glucose 262 H I & O for Last 24 hours: Intake & Output 02/28/25 03/01/25 03/02/25 03/03/25 23:59 23:59 23:59 23:59 Intake Total 700 / 700 1342 / 1342 300 / 300 Output Total 300 / 300 1100 / 1100 600 / 600 Balance 400 / 400 242 / 242 -300 / -300 Weight 66.497 kg 66.769 kg 66.723 kg Microbiology Reports for the Last 24 Hours: Microbiology 03/01/25 18:32 Anus CRE Surveillance Culture - Final Negative 03/01/25 04:36 Blood Blood Culture - Preliminary NO GROWTH AFTER 48 HOURS 03/01/25 04:36 Blood Blood Culture - Preliminary NO GROWTH AFTER 48 HOURS 03/02/25 13:41 Sputum - Expectorated Sputum Gram Stain - Final Constitutional Constitutional: no acute distress, thin and chronically ill appearing *Routine HEENT Exam Head: Present normocephalic Eye: Present EOMI and PERRL ENT: Present mucous membranes moist *Routine Neck Exam Neck: Present supple; Absent lymphadenopathy *Routine Respiratory Exam Respiratory: Present prolonged expiratory phase and rhonchi; Absent accessory muscle use, wheezes or crackles *Routine Cardiovascular Exam Cardiovascular: Present RRR *Routine Abdominal Exam Abdominal: Present soft and normoactive bowel sounds; Absent tenderness *Routine Rectal Exam Patient deferred: visual exam *Routine Exam Patient deferred: penile exam *Routine Extremities Exam Extremities: Absent cyanosis, clubbing or edema *Routine Skin Exam Skin: Present intact and warm; Absent rash *Routine Neurological Exam Neurological: Present alert, oriented X3, normal reflexes and moving all extremities; Absent altered mental status Results Data Completed and Pending Labs on day of discharge: Labs from last 24 hours 03/03/25 03/03/25 03/02/25 06:19 05:29 20:09 WBC 19.3 H D RBC 4.27 L Hgb 10.9 L Hct 35.3 L MCV 82.7 MCH 25.5 L MCHC 30.9 L RDW 15.7 Plt Count 198 MPV 9.8 Neut % (Auto) 94.5 H Lymph % (Auto) 3.2 L [place] % (Auto) 1.4 L Eos % (Auto) 0.0 L Baso % (Auto) 0.1 Neut # (Auto) 18.2 H Lymph # (Auto) 0.6 L [place] # (Auto) 0.3 Eos # (Auto) 0.0 Baso # (Auto) 0.0 VBG pH 7.38 VBG pCO2 47.8 VBG pO2 55.8 H VBG HCO3 27.4 VBG Total CO2 28.9 H VBG O2 Saturation 89.3 H VBG Base Excess 2.2 VBG Lactic Acid 1.5 Sodium 134 L Potassium 4.3 Chloride 98 Carbon Dioxide 31 H Anion Gap 9.3 BUN 41 H Creatinine 1.70 H Estimated Creat Clear 39 Estimated GFR 40 L Est GFR ( Amer) 49 L Glucose 252 H POC Glucose 262 H 318 H* Calcium 8.9 Magnesium 2.1 Total Bilirubin 0.3 AST 24 ALT 13 Alkaline Phosphatase 103 Total Protein 5.6 L Albumin 3.0 L Globulin 2.6 Albumin/Globulin Ratio 1.2 03/02/25 03/02/25 03/02/25 16:07 11:24 08:38 WBC RBC Hgb Hct MCV MCH MCHC RDW Plt Count MPV Neut % (Auto) Lymph % (Auto) [place] % (Auto) Eos % (Auto) Baso % (Auto) Neut # (Auto) Lymph # (Auto) [place] # (Auto) Eos # (Auto) Baso # (Auto) VBG pH 7.33 VBG pCO2 50.5 VBG pO2 49.4 H VBG HCO3 26.0 VBG Total CO2 27.6 H VBG O2 Saturation 83.7 H VBG Base Excess 0.1 VBG Lactic Acid 1.9 Sodium Potassium Chloride Carbon Dioxide Anion Gap BUN Creatinine Estimated Creat Clear Estimated GFR Est GFR ( Amer) Glucose POC Glucose 177 H 284 H Calcium Magnesium Total Bilirubin AST ALT Alkaline Phosphatase Total Protein Albumin Globulin Albumin/Globulin Ratio Preliminary micro results at discharge 03/01/25 04:36 Blood Culture - Preliminary Blood NO GROWTH AFTER 48 HOURS 03/01/25 04:36 Blood Culture - Preliminary Blood NO GROWTH AFTER 48 HOURS DS: Diagnosis Discharge Diagnosis (1) Respiratory failure with hypoxia and hypercapnia: Status: Acute Code(s): J96.91 - Respiratory failure, unspecified with hypoxia; J96.92 - Respiratory failure, unspecified with hypercapnia (2) Pneumonia: Status: Acute Code(s): J18.9 - Pneumonia, unspecified organism Qualifiers: Laterality: left (3) Lung cancer: Status: Acute Code(s): C34.90 - Malignant neoplasm of unspecified part of unspecified bronchus or lung (4) Severe protein-calorie malnutrition: Status: Acute Code(s): E43 - Unspecified severe protein-calorie malnutrition (5) Acute on chronic respiratory failure with hypoxia and hypercapnia: Status: Acute Code(s): J96.21 - Acute and chronic respiratory failure with hypoxia; J96.22 - Acute and chronic respiratory failure with hypercapnia (6) Lytic lesion of bone on x-ray: Status: Acute Code(s): M89.8X9 - Other specified disorders of bone, unspecified site (7) Postobstructive pneumonia: Status: Acute Code(s): J18.9 - Pneumonia, unspecified organism (8) CKD stage 3b, GFR 30-44 ml/min: Status: Acute Code(s): N18.32 - Chronic kidney disease, stage 3b (9) Type 2 diabetes mellitus: Status: Chronic Code(s): E11.9 - Type 2 diabetes mellitus without complications Qualifiers: Diabetes mellitus complication detail: with polyneuropathy Diabetes mellitus complication status: with neurologic complications Diabetes mellitus terminal clerk insulin use: without group home use Qualified Code(s): E11.42 - Type 2 diabetes mellitus with diabetic polyneuropathy (10) Tobacco abuse: Status: Chronic Code(s): Z72.0 - Tobacco use (11) Infection due to Corynebacterium species: Status: Acute Code(s): A49.8 - Other bacterial infections of unspecified site Meds Home Medications and Allergies Home Medications ?Medication ?Instructions ?Recorded ?Confirmed ?Type simvastatin 40 mg tablet 40 mg PO HS 05/06/23 03/01/25 History acetaminophen 500 mg tablet 500 mg PO Q6HP PRN pain/fever 07/22/23 03/01/25 History gabapentin 300 mg capsule 300 mg PO BID 30 days #60 caps 03/28/24 03/01/25 Rx carvedilol 25 mg tablet 25 mg PO BID 30 days #60 tabs 04/10/24 03/01/25 Rx dapagliflozin propanediol 10 mg 10 mg PO DAILY #30 tabs 04/19/24 03/01/25 Rx tablet (Farxiga) diltiazem HCl 120 mg 120 mg PO HS 11/17/24 03/01/25 History tablet,extended release 24 hr duloxetine 60 mg capsule,delayed 60 mg PO DAILY 11/17/24 03/01/25 History release Held on 03/03/25. Instructions: until completes course of linezolid (Zyvox) pantoprazole 40 mg tablet,delayed 40 mg PO DAILY 01/17/25 03/01/25 History release oxybutynin chloride 10 mg 10 mg PO DAILY 30 days #30 tabs 01/23/25 03/01/25 Rx tablet,extended release 24 hr dextromethorphan-guaifenesin 20 20 ml PO Q12HP PRN Cough 02/03/25 03/01/25 History mg-200 mg/15 mL oral liquid melatonin 3 mg capsule 9 mg PO HS PRN Sleep 02/03/25 03/01/25 History propylene glycol 0.6 % eye drops 1 drp Eye-Both TID 02/03/25 03/01/25 History (Systane Balance) aspirin 81 mg chewable tablet 81 mg PO DAILY 30 days #30 tabs 02/14/25 03/01/25 Rx insulin glargine 100 unit/mL (3 20 unit SQ DAILY 02/20/25 03/01/25 History mL) subcutaneous pen (Basaglar KwikPen U-100 Insulin) losartan 100 1 tab PO DAILY 100/25MG 02/21/25 03/01/25 History mg-hydrochlorothiazide 25 mg tablet multivitamin 1 tab PO DAILY 02/21/25 03/01/25 History nystatin 100,000 unit/mL oral 600,000 unit (6 mL) PO TID 10 days 02/22/25 03/01/25 Rx suspension #180 mL albuterol sulfate 1.25 mg/3 mL 1.25 mg inhalation Q4HP PRN 03/01/25 03/01/25 History solution for nebulization Shortness Of Breath ipratropium 0.5 mg-albuterol 3 mg 3 ml inhalation QIDP PRN Shortness 03/01/25 03/01/25 History (2.5 mg base)/3 mL nebulization Of Breath soln lorazepam 0.5 mg tablet 0.5 mg PO TID 03/01/25 03/01/25 History hydrocodone 5 mg-acetaminophen 325 1 tab PO Q4HP PRN Moderate To 03/03/25 Rx mg tablet Severe Pain (4-10) 7 days #28 tabs lidocaine 4 % topical patch 1 patch topical DAILY PRN back 03/03/25 Rx pain #30 ea linezolid 600 mg tablet 600 mg PO BID 5 days #10 tabs 03/03/25 Rx New Prescriptions to Start Prescriptions: hydrocodone-acetaminophen Alphonso Auguste James linezoAlphonso Rausch Allergies Allergy/AdvReac Type Severity Reaction Status Date / Time No Known Allergies Allergy Verified 02/22/25 14:32 Discharge Plan Disposition Patient Disposition: [facility] Condition: Fair Discharge Order Discharge Orders: Discharge Order (Routine); Ordered 03/03/25 Ordered By: Alphonso Auguste Follow up Plan Follow up with: Og Lovell MD [Staff Physician, Oncology] - Enter time for follow up ProviderJorge MD [Primary Care Provider, Medical] - See instructions Latha Queen MD [Physician, Pulmonology] - Enter time for follow up Prescriptions/Medication Reconciliation: New linezolid 600 mg tablet 600 mg PO BID 5 Days Qty: 10 0RF lidocaine 4 % adhesive patch,medicated 1 patch topical DAILY PRN (Reason: back pain) Qty: 30 0RF Continued diltiazem HCl 120 mg tablet extended release 24 hr 120 mg PO HS dapagliflozin propanediol [Farxiga] 10 mg tablet 10 mg PO DAILY Qty: 30 3RF melatonin 3 mg capsule 9 mg PO HS PRN (Reason: Sleep) Systane Balance 0.6 % drops 1 drp Eye-Both TID dextromethorphan-guaifenesin 20-200 mg/15 mL liquid 20 ml PO Q12HP PRN (Reason: Cough) pantoprazole 40 mg tablet,delayed release (DR/EC) 40 mg PO DAILY oxybutynin chloride 10 mg tablet extended release 24hr 10 mg PO DAILY 30 Days Qty: 30 0RF gabapentin 300 mg capsule 300 mg PO BID 30 Days Qty: 60 2RF nystatin 100,000 unit/mL suspension 600,000 unit PO TID 10 Days Qty: 180 0RF Rx Instructions: administer 1/2 of dose in each side of the mouth simvastatin 40 mg tablet 40 mg PO HS carvedilol 25 mg Tablet 25 mg PO BID 30 Days Qty: 60 0RF Rx Instructions: HOLD FOR SBP <100, DBP <60, OR HR < 60 aspirin 81 mg Tablet,Chewable 81 mg PO DAILY 30 Days Qty: 30 0RF insulin glargine [Basaglar KwikPen U-100 Insulin] 100 unit/mL (3 mL) insulin pen 20 unit SQ DAILY multivitamin Tablet 1 tab PO DAILY losartan-hydrochlorothiazide 100-25 mg tablet 1 tab PO DAILY Rx Instructions: HOLD FOR SBP <100, DBP <60, OR HR < 60 acetaminophen 500 mg Tablet 500 mg PO Q6HP PRN (Reason: pain/fever) albuterol sulfate 1.25 mg/3 mL solution for nebulization 1.25 mg inhalation Q4HP PRN (Reason: Shortness Of Breath) ipratropium-albuterol 0.5 mg-3 mg(2.5 mg base)/3 mL solution for nebulization 3 ml INHALATION QIDP PRN (Reason: Shortness Of Breath) lorazepam 0.5 mg tablet 0.5 mg PO TID Changed hydrocodone-acetaminophen 5-325 mg Tablet 1 tab PO Q4HP PRN (Reason: Moderate To Severe Pain (4-10)) 7 Days Qty: 28 0RF Held duloxetine 60 mg capsule,delayed release(DR/EC) 60 mg PO DAILY Hold Instructions: until completes course of linezolid (Zyvox) Discontinued amoxicillin-pot clavulanate [Augmentin] 500-125 mg tablet 1 tab PO Q12H 7 Days Qty: 14 0RF Rx Instructions: FROM 03/01-03/08/25 Problem Reconciliation Problems Reviewed?: Yes Patient Discharge Instructions ACTIVITY: Continue current activity DIET: continue same diet Patient Instructions: DI for Pneumonia in Adults Print Language: [place]ian Providers Primary Care Provider: Provider,Referral Admit Provider: Alphonso Auguste Attending Provider: Alphonso Auguste
[2025-03-03] MEDS: HEPARIN SODIUM 5,000 UNIT/ML VIAL 5000 UNIT SUBCUT ×2 (08:15→13:36)
[2025-03-03] MEDS: GABAPENTIN 300MG CAPSULE 300 MG PO (08:15)
[2025-03-03] MEDS: ASPIRIN 81MG CHEWABLE TABLET 81 MG PO (08:15)
[2025-03-03] MEDS: CARVEDILOL 25MG TABLET 25 MG PO (08:15)
[2025-03-03] MEDS: DAPAGLIFLOZIN PROPANEDIOL 10 MG TABLET PO (08:15)
[2025-03-03] MEDS: NYSTATIN SUSP 500,000 UNITS/5ML UDC 500000 UNIT PO ×2 (08:16→13:36)
[2025-03-03] MEDS: INSULIN GLARGINE 100 UNITS/ML 3ML FLEXPEN 20 UNIT SUBCUT (08:16)
[2025-03-03 08:32] LABS: POC Glucose,Bedside 332 gm/dL (70-110)
--- NOTE | 2025-03-03 09:56 | EXP.PULM.PN ---
Subjective *Date: 03/03/25 *Time: 14:08 Interval history: No acute respiratory vents overnight. Pulmonology Exam Inpatient Vital signs and Labs for Last 24 Hours: Temp Pulse Resp BP Pulse Ox O2 Del Method O2 Flow Rate 97.9 F 78 16 139/78 93 L Nasal Cannula 2 03/03/25 08:00 03/03/25 09:14 03/03/25 08:00 03/03/25 08:00 03/03/25 08:00 03/03/25 08:58 03/03/25 08:58 FiO2 35 03/02/25 06:16 Laboratory Results - last 24 hr 03/02/25 11:24: POC Glucose 284 H 03/02/25 16:07: POC Glucose 177 H 03/02/25 20:09: POC Glucose 318 H* 03/03/25 05:29: WBC 19.3 H D, RBC 4.27 L, Hgb 10.9 L, Hct 35.3 L, MCV 82.7, MCH 25.5 L, MCHC 30.9 L, RDW 15.7, Plt Count 198, MPV 9.8, Neut % (Auto) 94.5 H, Lymph % (Auto) 3.2 L, [place] % (Auto) 1.4 L, Eos % (Auto) 0.0 L, Baso % (Auto) 0.1, Neut # (Auto) 18.2 H, Lymph # (Auto) 0.6 L, [place] # (Auto) 0.3, Eos # (Auto) 0.0, Baso # (Auto) 0.0, VBG pH 7.38, VBG pCO2 47.8, VBG pO2 55.8 H, VBG HCO3 27.4, VBG Total CO2 28.9 H, VBG O2 Saturation 89.3 H, VBG Base Excess 2.2, VBG Lactic Acid 1.5, Sodium 134 L, Potassium 4.3, Chloride 98, Carbon Dioxide 31 H, Anion Gap 9.3, BUN 41 H, Creatinine 1.70 H, Estimated Creat Clear 39, Estimated GFR 40 L, Est GFR ( Amer) 49 L, Glucose 252 H, Calcium 8.9, Magnesium 2.1, Total Bilirubin 0.3, AST 24, ALT 13, Alkaline Phosphatase 103, Total Protein 5.6 L, Albumin 3.0 L, Globulin 2.6, Albumin/Globulin Ratio 1.2 03/03/25 06:19: POC Glucose 262 H 03/03/25 08:14: POC Glucose 332 H* Temp Pulse Resp BP Pulse Ox O2 Del Method O2 Flow Rate 97.8 F 74 13 108/69 L 94 L BiPAP 30 03/01/25 08:33 03/01/25 08:33 03/01/25 08:33 03/01/25 08:33 03/01/25 08:33 03/01/25 08:33 03/01/25 07:46 FiO2 50 03/01/25 08:05 Laboratory Results - last 24 hr 03/01/25 04:28: VBG pH 7.24 L, VBG pCO2 56.8 H, VBG pO2 65.5 H, VBG HCO3 23.6, VBG Total CO2 25.4, VBG O2 Saturation 90.9 H, VBG Base Excess -3.8 L, VBG Lactic Acid 1.3 03/01/25 04:30: WBC 14.1 H, RBC 4.33 L, Hgb 11.3 L, Hct 36.8 L, MCV 85.0, MCH 26.1 L, MCHC 30.7 L, RDW 15.8, Plt Count 185, MPV 10.3, Neut % (Auto) 78.8, Lymph % (Auto) 9.6 L, [place] % (Auto) 8.9, Eos % (Auto) 1.4, Baso % (Auto) 0.2, Neut # (Auto) 11.1 H, Lymph # (Auto) 1.4, [place] # (Auto) 1.3 H, Eos # (Auto) 0.2, Baso # (Auto) 0.0, PT 13.6 H, INR 1.25 H, Sodium 132 L, Potassium 5.0, Chloride 98, Carbon Dioxide 25, Anion Gap 14.0, BUN 30 H, Creatinine 1.60 H, Estimated GFR 43 L, Est GFR ( Amer) 52 L, Glucose 157 H, Calcium 8.5, Total Bilirubin 0.6, AST 20, ALT 12, Alkaline Phosphatase 106, Troponin I 0.09 H, NT-Pro-B Natriuret Pep 6660 H, Total Protein 5.6 L, Albumin 3.1 L, Globulin 2.5, Albumin/Globulin Ratio 1.2 03/01/25 07:21: Specimen Source Right radial, ABG pH 7.14 L*, ABG pCO2 69.9 H, ABG pO2 105.4 H, ABG HCO3 23.5, ABG Total CO2 25.6, ABG O2 Saturation 97, ABG Base Excess -5.5 L, Keith Test Acceptable, PEEP 40l/100% 03/01/25 08:20: WBC 12.4 H, RBC 4.21 L, Hgb 11.1 L, Hct 36.2 L, MCV 86.0, MCH 26.4 L, MCHC 30.7 L, RDW 15.8, Plt Count 180, MPV 10.0, Neut % (Auto) 93.6 H, Lymph % (Auto) 3.9 L, [place] % (Auto) 1.0 L, Eos % (Auto) 0.1, Baso % (Auto) 0.2, Neut # (Auto) 11.7 H, Lymph # (Auto) 0.5 L, [place] # (Auto) 0.1, Eos # (Auto) 0.0, Baso # (Auto) 0.0, Troponin I 0.09 H I & O for Labs for Last 24 Hours: Intake & Output 02/28/25 03/01/25 03/02/25 03/03/25 23:59 23:59 23:59 23:59 Intake Total 700 / 700 1342 / 1342 750 / 750 Output Total 300 / 300 1100 / 1100 600 / 600 Balance 400 / 400 242 / 242 150 / 150 Weight 146 lb 9.6 oz 147 lb 3.2 oz 147 lb 1.6 oz Intake & Output 02/26/25 02/27/25 02/28/25 03/01/25 23:59 23:59 23:59 23:59 Intake Total 150 / 150 Balance 150 / 150 Weight 146 lb 9.6 oz Microbiology Reports for the Last 24 Hours: Microbiology 03/01/25 18:32 Anus CRE Surveillance Culture - Final Negative 03/01/25 04:36 Blood Blood Culture - Preliminary NO GROWTH AFTER 48 HOURS 03/01/25 04:36 Blood Blood Culture - Preliminary NO GROWTH AFTER 48 HOURS 03/02/25 13:41 Sputum - Expectorated Sputum Gram Stain - Final Microbiology 02/12/25 12:10 Sputum - Expectorated Sputum Gram Stain - Final 02/12/25 12:10 Sputum - Expectorated Sputum Sputum Culture - Preliminary Constitutional: Present moderate distress Head: Present normocephalic and atraumatic ENT: Present normal exam, normal oropharynx and mucous membranes moist Neck: Present normal inspection and full ROM Respiratory: Present prolonged expiratory phase, respiratory distress and able to speak in complete sentences; Absent wheezes Cardiac: Present S1/S2, Tachycardia and radial pulses present GI: Present soft and distention; Absent tenderness or guarding Skin: Present intact; Absent cyanosis or jaundice Neuro: Present awake; Absent alert or oriented x 3 Extremities: Present normal inspection; Absent clubbing or cyanosis Psychiatric: Present unable to assess Assessment and Plan *Assessment and plan (1) Acute on chronic respiratory failure with hypoxia and hypercapnia: Status: Acute Category: Medical Code(s): J96.21 - Acute and chronic respiratory failure with hypoxia; J96.22 - Acute and chronic respiratory failure with hypercapnia (2) Pneumonia: Status: Acute Qualifiers: Laterality: left Category: Medical Code(s): J18.9 - Pneumonia, unspecified organism (3) Lung cancer: Status: Acute Category: Medical Code(s): C34.90 - Malignant neoplasm of unspecified part of unspecified bronchus or lung Plan Mr. Rivero is a 69-year-old male following in pulmonary clinic for exertional dyspnea chronic hypoxic respiratory failure emphysema and lung mass s/p biopsy awaiting pathology presented to ER with worsening respiratory distress and pulmonary was called for further evaluation and management. Worsening cough productive phlegm and low-grade fevers and worsening mentation as an outpatient basis, initiated on Augmentin for presumed Corynebacterium striatum pneumonia. Chest x-ray upon admission prominent left-sided airspace disease significantly worsened from his most recent admission. Blood gas from this morning also showed worsening hypercarbic respiratory failure. Comprehensive respiratory viral PCR panel negative. Interval update: No acute respiratory vents overnight. Stable oxygen requirements. Worsening leukocytosis, stable oxygen occurrence. Improving chest x-ray from yesterday. Blood gas from this morning did not show any evidence of hypercarbic respiratory failure Repeat sputum cultures no organisms seen. 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 PD-L1 less than 1%. Plan: Continue nasal cannula oxygen supplementation to maintain O2 saturation goal of 90% and above DuoNebs every 4 hours along with Pulmicort Q12 scheduled Continue linezolid x 7 days pending final sensitivities on BAL cultures. Will follow. # Thank you for involving pulmonary in this patient care. Will follow the patient in pulmonary clinic 5 to 7 days postdischarge.
--- NOTE | 2025-03-03 10:00 | XR_ITS ---
FINAL REPORT CLINICAL HISTORY: Hypoxia/PNM COMPARISON: 03/01/2025 FINDINGS: The heart size is mildly enlarged. Left-sided PICC line is present with the tip in the SVC. There are coarse to mixed interstitial airspace opacities in the left lung. The airspace component is less evident on the current exam, probably due to resolving pneumonia. The right lung is clear. There are no pleural effusions. There is no pneumothorax. There is no osseous abnormality. IMPRESSION: Mixed interstitial and airspace opacities left lung, improved probably due to resolving pneumonia. Reviewed, Interpreted and Dictated by Kirk Constantino MD Transcribed by Lauryn Chisholm Authenticated and [facility]
[2025-03-03] MEDS: HYDROCODONE/APAP 5/325 MG TABLET 1 TAB PO (10:33)
[2025-03-03 11:21] LABS: POC Glucose,Bedside 429 gm/dL (70-110)
[2025-03-03] MEDS: LINEZOLID 600 MG/300 ML IV.SOLN 300 MG IV (12:48)
[2025-03-03 12:58] LABS: POC Glucose,Bedside 318 gm/dL (70-110)
--- NOTE | 2025-03-03 13:09 | PC.NURSE ---
Primary RN spoke with , states to remove patients PICC line before discharge. Continuation of care plan.
--- NOTE | 2025-03-03 14:10 | PC.NURSE ---
PICC line removed at this time. PICC line tubing intact. Patient tolerated well. Continuation of care plan.
--- NOTE | 2025-03-03 14:26 | PC.NURSE ---
Report called to Angela at [facility]. Continuation of care plan.
--- NOTE | 2025-03-03 14:40 | PC.NURSE ---
EMS called at this time. Awaiting transportation.
--- NOTE | 2025-03-03 15:22 | PC.NURSE ---
EMS arrived to ICU at this time.
--- NOTE | 2025-03-03 15:33 | PC.NURSE ---
Patient discharged via stretcher with EMS at this time.
== END 2025-03-03 15:33 | DRG 177 ==
LOC: ER 05:13 → 2ND 05:29 → ICU 10:19
PROVIDERS: Internal Medicine; Internal Medicine Pulmonary Disease; Admitting Provider Internal Medicine Adolescent Medicine; Emergency Provider Emergency Medicine; Visit Provider Internal Medicine Adolescent Medicine
DX: J15.8 Pneumonia due to other specified bacteria (principal); E43 Unspecified severe protein-calorie malnutrition; J96.21 Acute and chronic respiratory failure with hypoxia; J96.22 Acute and chronic respiratory failure with hypercapnia; C34.12 Malignant neoplasm of upper lobe, left bronchus or lung; J44.0 Chronic obstructive pulmonary disease with (acute) lower respiratory infection; C79.51 Secondary malignant neoplasm of bone; M84.58XA Pathological fracture in neoplastic disease, other specified site, initial encounter for fracture; J44.1 Chronic obstructive pulmonary disease with (acute) exacerbation; K86.1 Other chronic pancreatitis; N32.81 Overactive bladder; E11.42 Type 2 diabetes mellitus with diabetic polyneuropathy; K21.9 Gastro-esophageal reflux disease without esophagitis; F41.9 Anxiety disorder, unspecified; F32.A Depression, unspecified; I12.9 Hypertensive chronic kidney disease with stage 1 through stage 4 chronic kidney disease, or unspecified chronic kidney disease; E11.22 Type 2 diabetes mellitus with diabetic chronic kidney disease; N18.32 Chronic kidney disease, stage 3b; J43.9 Emphysema, unspecified; I25.10 Atherosclerotic heart disease of native coronary artery without angina pectoris; F17.210 Nicotine dependence, cigarettes, uncomplicated; Z66 Do not resuscitate; Z51.5 Encounter for palliative care; Z68.22 Body mass index [BMI] 22.0-22.9, adult; Z85.46 Personal history of malignant neoplasm of prostate; Z79.84 Long term (current) use of oral hypoglycemic drugs; Z79.82 Long term (current) use of aspirin; Z79.85 Long-term (current) use of injectable non-insulin antidiabetic drugs; Z79.4 Long term (current) use of insulin; Z79.899 Other long term (current) drug therapy; Z71.6 Tobacco abuse counseling
CPT/HCPCS: 0223U; 36415; 36600; 71045; 80048; 80053; 82803; 82962; 83735; 83880; 84484; 85007; 85025; 85610; 87040; 87070; 87081; 87205; 89220; 93005; 94640; 94660; 94760; 94761; 97110; 97116; 97162; 97166; 97530; 99285; J1644; J2020; J2270; J2405; J2470; J2543; J2919; J3375; J3475